=== PATIENT | female | born 1960 | race African-American/Black ===

== ENCOUNTER 2020-03-01 10:00 | Outpatient (RCR) | payer MEDICAID, OTHER, SELFPAY ==
[2020-01-18] VITALS (7 sets, daily range): BP systolic 111–140; BP diastolic 75–85; PULSE 61–87; RESP 13–16; TEMP 36.6–37.4; O2SAT 98–100
[2020-01-18] MEDS: ACETAMINOPHEN 500 MG TABLET PO (08:03)
[2020-01-18 08:28] LABS: Hematocrit 18.6 % (37.0-47.0); Hemoglobin 6.1 g/dL (12.0-15.0)
[2020-02-29 11:35] VITALS: BP 110/73; PULSE 62; RESP 14; TEMP 37.6; O2SAT 97
[2020-02-29 11:41] LABS: Hemoglobin 6.8 g/dL (12.0-15.0)
--- NOTE | 2020-02-29 13:18 | PC.NURSE ---
LM AT DR. 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 DID THEY WANT TO ORDER ADDITIONAL BLOOD TO BE GIVEN OVER THE 1 UNIT PRBC'S ORDERED? RETURN CALL RECEIVED FROM OFFICE. YES, PER DR. ANDINO, INCREASE TRANSFUSION UNITS TO 2 FROM 1. NOTIFIED BLOOD BANK OF NEED TO TRANSFUSE 2 UNITS OF BLOOD INSTEAD OF 1 PER ORDER. PT. UPDATED ON NEW ORDER.
--- NOTE | 2020-02-29 13:50 | PC.NURSE ---
CALL RECEIVED FROM BLOOD BANK. UNABLE TO ISSUE ANY BLOOD UNITS AT THIS TIME; EXTENDED CROSSMATCH CAME BACK POSITIVE (+), BUT ANTIBODY SCREEN IS NEGATIVE (-). 4 ADDITIONAL PINK TOP VIALS OF BLOOD REQUESTED TO BE SENT TO BLOOD BANK FOR SEND OUT FOR ADDITIONAL SCREENING. LAB UNABLE TO GIVE ESTIMATED LENGTH OF TIME THIS PROCESS WILL TAKE, BUT RECOMMENDS PT. GO HOME FOR NIGHT AND RETURN TOMORROW FOR TRANSFUSION. PT. NOTIFIED OF SUCH. AGREES TO RETURN TO [facility] AT 10AM 03/01/2020 FOR BLOOD TRANSFUSION OF [address] ANDINO'S OFFICE AND CONFIRM THEIR APPROVAL.
--- NOTE | 2020-02-29 14:30 | PC.NURSE ---
OK RECEIVED FOR DATE AND TIME CHANGE OF 2 UNITS PRBC TRANSFUSION TO 03/01/[address] ANDINO. OFFICE WILL SEND OVER NEWLY UPDATED ORDER TO REFLECT TRANSFUSION CHANGE TO 2 UNITS PRBC'S FROM 1 UNIT PRBC'S FOR HH OF .
[2020-02-29] MEDS: HEPARIN SOD FLUSH 500 UNITS/5 ML SYRINGE (14:55)
--- NOTE | 2020-02-29 14:55 | PC.NURSE ---
4 PINK TOP VIALS OF BLOOD SENT TO BLOOD BANK REQUESTED FOR ADDITIONAL SCREENING. PORT A CATH R. UPPER CHEST DEACCESSED PER PROTOCOL AFTER FLUSHED W/ HEP LOCK FLUSH. TOLERATED WELL. PT. DID NOT TAKE PRE TRANSFUSION MEDS OF TYLENOL OR BENADRYL TODAY.
--- NOTE | 2020-02-29 15:00 | PC.NURSE ---
SENT HOME, OUT AMBULATORY TO DAUGHTER'S WAITING CAR WITH ALL PERSONAL BELONGINGS. WILL RETURN TOMORROW 03/01/2020 AT 1000 FOR 2UNITS PRBC'S TRANSFUSION ORDERED ONCE ADDITIONAL SCREENING IS COMPLETED.
[2020-03-01] VITALS (9 sets, daily range): BP systolic 100–122; BP diastolic 68–77; PULSE 56–68; RESP 14–20; TEMP 36.6–37.7; O2SAT 99–100
[2020-03-01] MEDS: ACETAMINOPHEN 500 MG TABLET PO (11:41)
== END 2020-04-17 23:59 | disposition home or self-care (01) ==
LOC: ANHCPCTRAN 10:00
PROVIDERS: Visit Provider Internal Medicine Medical Oncology
DX: D50.0 Iron deficiency anemia secondary to blood loss (chronic) (principal); C18.6 Malignant neoplasm of descending colon
CPT/HCPCS: 36415; 36430; 81479; 85014; 85018; 86850; 86860; 86870; 86880; 86900; 86901; 86922; 86970; 86971; 86972; A9270; P9016

== ENCOUNTER 2020-03-20 07:33 | Outpatient (CLI) | payer OTHER, SELFPAY ==
--- NOTE | 2020-03-20 | ECHO_ITS ---
Patient Info Name: Dina Smith Age: 59 years : 1960 Gender: Female Ht: 67 in Wt: 171 lbs BSA: 1.93 m2 HR: 63 bpm BP: 99 / 86 mmHg Heart Rhythm: Sinus Rhythm Technical Quality: Good Exam Date: 03/20/2020 7:59 AM Exam Location: [facility] Patient Status: Outpatient Admit Date: 03/20/2020 Staff Ordering Physician: Theron, Jah Herring MD Ornamental Machine Operator: Viktoriya Mcmillan RDCS Attending Provider: Ranulfo, Jah Herring MD Referring Physician: Theron BIANCHI; Exam Type: CA echo doppler color flow Study Info Indications I10 - Essential (primary) hypertension I42.9 - Cardiomyopathy, unspecified Complete two-dimensional, color flow and Doppler transthoracic echocardiogram is performed. Summary 1. Left ventricular chamber dimension is mildly enlarged. 2. Left ventricular systolic function is normal, estimated at 55-60%. 3. There is mildly increased left ventricular wall thickness. 4. Left ventricular septal wall motion is normal. 5. The left ventricular diastolic function is grade I diastolic dysfunction. 6. Global longitudinal strain is normal at 17 %. 7. There is moderate aortic valve regurgitation. 8. There is mild mitral valve regurgitation. 9. There is mild tricuspid valve regurgitation. 10. There is mild pulmonic regurgitation. Left Ventricle Left ventricular chamber dimension is mildly enlarged. Left ventricular systolic function is normal, estimated at 55-60%. There is mildly increased left ventricular wall thickness. Left ventricular septal wall motion is normal. The left ventricular diastolic function is grade I diastolic dysfunction. Global longitudinal strain is normal at 17 %. Right Ventricle Right ventricular chamber dimension is normal. Right ventricular systolic function is normal. Left Atria Left atrial chamber dimension is mildly enlarged. Right Atria Right atrial chamber dimension is normal. Atrial Septum Intact interatrial septum visualized by color flow imaging. Aortic Valve The aortic valve is trileaflet. There is no aortic valve sclerosis. There is no aortic valve stenosis. There is moderate aortic valve regurgitation. Pulmonic Valve The pulmonic valve is normal. There is no pulmonic valve stenosis. There is mild pulmonic regurgitation. Mitral Valve The mitral valve has normal leaflets. There is no mitral valve stenosis. There is mild mitral valve regurgitation. Tricuspid Valve The tricuspid valve leaflets are normal. There is no significant tricuspid valve stenosis. There is mild tricuspid valve regurgitation. No pulmonary hypertension, estimated pulmonary arterial systolic pressure is 31 mmHg. Pericardium/Pleural The pericardium appears normal. There is no pericardial effusion. Inferior Vena Cava Normal inferior vena cava with >50% collapse upon inspiration consistent with normal right atrial pressure, 10 mmHg. Aorta The aortic root size at the sinus of Valsalva is normal. The prox ascending aorta size is normal. Left Ventricular Outflow Tract Name Value Normal LVOT 2D LVOT Diameter 2.0 cm LVOT Doppler LVOT Pe
[2020-03-20 10:41] LABS: Alanine Aminotransferase 9 U/L (4-35); Albumin Level 3.8 g/dL (3.5-5.1); Alkaline Phosphatase 65 U/L (38-126); Aspartate Amino Transferase 23 U/L (14-36); Bilirubin,Total 0.2 mg/dL (0.2-1.3); Blood Urea Nitrogen 31 mg/dL (7-17); Calcium 9.1 mg/dL (8.4-10.2); Carbon Dioxide 17 mmol/L (22-30); Chloride 112 mmol/L (98-107); Estimated Glomerular Filt Rate 26; Glucose 92 mg/dL (65-105); Potassium 4.3 mmol/L (3.4-5.0); Sodium 138 mmol/L (137-145)
== END 2020-03-20 07:34 | disposition home or self-care (01) ==
PROVIDERS: Visit Provider Internal Medicine Cardiovascular Disease
DX: I42.9 Cardiomyopathy, unspecified (principal); I10 Essential (primary) hypertension; I08.3 Combined rheumatic disorders of mitral, aortic and tricuspid valves
CPT/HCPCS: 36415; 80053; 93306

== ENCOUNTER 2020-03-23 12:57 | Outpatient (CLI) | payer OTHER, SELFPAY ==
[2020-03-23 13:58] LABS: Blood Urea Nitrogen 27 mg/dL (7-17); Calcium 8.8 mg/dL (8.4-10.2); Carbon Dioxide 17 mmol/L (22-30); Chloride 113 mmol/L (98-107); Estimated Glomerular Filt Rate 25; Glucose 93 mg/dL (65-105); Potassium 4.5 mmol/L (3.4-5.0); Sodium 138 mmol/L (137-145)
== END 2020-03-23 12:58 | disposition home or self-care (01) ==
DX: I10 Essential (primary) hypertension (principal)
CPT/HCPCS: 36415; 80048

== ENCOUNTER 2020-05-18 09:29 | Outpatient (RCR) | payer OTHER, SELFPAY ==
[2020-04-06] VITALS (9 sets, daily range): BP systolic 104–131; BP diastolic 71–89; PULSE 67–79; RESP 20–24; TEMP 37.3–37.7; O2SAT 99–100
[2020-04-06 08:17] LABS: Mean Corpuscular HGB Conc 31.6 g/dl (32-36); Mean Corpuscular Hemoglobin 28.6 pg (26-34); Mean Corpuscular Volume 90.3 fl (80-100); Mean Platelet Volume 8.6 fl (7.4-10.4); Platelet Count Result 190 k/mm3 (150-375); Red Blood Count 2.17 M/mm3 (4.2-5.4); White Blood Count 4.3 K/mm3 (4.5-10.0)
[2020-04-06] MEDS: ACETAMINOPHEN 500 MG TABLET PO (08:17)
[2020-04-06 08:21] LABS: Hematocrit 19.6 % (37.0-47.0); Hemoglobin 6.2 g/dL (12.0-15.0)
[2020-04-06] MEDS: SODIUM CHLORIDE 0.9% IV 250 ML 30 ML IV CONT (09:45)
[2020-05-18 09:55] LABS: Eosinophils Absolute Auto 0.1 K/mm3 (0-0.3); Hematocrit 21.8 % (37.0-47.0); Hemoglobin 7.2 g/dL (12.0-15.0); Immature Granulocyte Absolute 0.02 K/mm3 (0.00-0.031); Immature Granulocyte Percent A 0.4 % (0-0.5); Lymphocytes Absolute Auto 0.67 K/mm3 (0.9-3.2); Lymphocytes Percent Auto 14.8 % (18.3-44.2); Mean Corpuscular Hemoglobin 29.9 pg (26-34); Mean Corpuscular Volume 90.5 fl (80-100); Mean Platelet Volume 8.9 fl (7.4-10.4); Monocytes Absolute Auto 0.4 K/mm3 (0.1-0.6); Monocytes Percent Auto 9.1 % (2.6-8.5); Neutrophils Absolute Auto 3.3 K/mm3 (1.3-6.7); Neutrophils Percent Auto 73.7 % (45.5-73.1); Platelet Count Result 248 k/mm3 (150-375); Red Blood Count 2.41 M/mm3 (4.2-5.4); Red Cell Distribution Width 16.6 % (11.5-14.5); White Blood Count 4.5 K/mm3 (4.5-10.0)
[2020-05-18] MEDS: diphenhydrAMINE HCl CAP 25 MG CAPSULE PO (11:49)
[2020-05-18] MEDS: ACETAMINOPHEN 500 MG TABLET PO (11:54)
[2020-05-18 13:15] VITALS: BP 100/64; PULSE 64; RESP 14; TEMP 37; O2SAT 99
[2020-05-18 13:30] VITALS: BP 92/62; PULSE 64; RESP 15; TEMP 37.5; O2SAT 100
[2020-05-18 14:30] VITALS: BP 92/63; PULSE 67; RESP 14; TEMP 37.2; O2SAT 97
[2020-05-18 15:19] VITALS: BP 95/62; PULSE 64; RESP 14; TEMP 37.1; O2SAT 100
[2020-05-18] MEDS: HEPARIN SOD FLUSH 500 UNITS/5 ML SYRINGE (15:22)
== END 2020-07-04 23:59 | disposition home or self-care (01) ==
LOC: ANHCPCTRAN 09:29
PROVIDERS: Visit Provider Internal Medicine Medical Oncology
DX: D50.0 Iron deficiency anemia secondary to blood loss (chronic) (principal); C18.6 Malignant neoplasm of descending colon
CPT/HCPCS: 36415; 36430; 85025; 85027; 86850; 86900; 86901; 86922; A9270; J7050; P9016

== ENCOUNTER 2020-08-27 08:59 | Inpatient (IN) | payer MEDICARE, MEDICAID, SELFPAY ==
[2020-08-27] VITALS (20 sets, daily range): BP systolic 141–184; BP diastolic 77–96; PULSE 49–67; RESP 16; TEMP 36.3–36.4; O2SAT 97–100; BMI 23.5
--- NOTE | ~2020-08-27 | CT_ITS ---
EXAMINATION: CT guide nephro tube pl BI DATE: 08/29/2020 15:08 INDICATION: Bilateral hydronephrosis. TECHNIQUE: The procedure including the risks, benefits, and alternatives was discussed with the patie nt. Risks discussed included bleeding and infection. The patient understood the risks and benefits an d agreed to proceed. The patient was confirmed to be receiving appropriate antibiotic coverage. The skin overlying the kidneys was prepped and draped in usual sterile fashion. Anesthetic was administe red with 1% lidocaine subcutaneously. An 18 gauge trochar needle was inserted into a calyx of the rig ht kidney under CT guidance. The needle was exchanged over a wire for 6 Bolivian, 8 Bolivian, and 9 Frenc h dilators and then for an 8.5 Bolivian pigtail catheter under CT guidance. The catheter was stitched t o the skin. An 18 gauge trochar needle was inserted into a calyx of the left kidney under CT guidance. The needle was exchanged over a wire for 6 Bolivian, 8 Bolivian, and 9 Bolivian dilators and then for an 8.5 Bolivian p igtail catheter under CT guidance. The catheter was stitched to the skin. Dressings were applied. The mA was adjusted according to patient size. Iterative reconstruction technique was employed. The dose -length product was 266.58 mGy-cm. There were no immediate complications. FINDINGS: CT images demonstrate the right nephrostomy tube in the right renal pelvis. CT images demon strate the left nephrostomy tube in the left renal pelvis. IMPRESSION: 1. Successful CT-guided right-sided nephrostomy tube placement]. 2. Successful CT-guided left-sided nephrostomy tube placement. Reviewed, dictated and finalized at location A.
--- NOTE | ~2020-08-27 | CT_ITS ---
EXAMINATION: CT abdomen pelvis wo con DATE: 08/28/2020 08:30 INDICATION: Generalized abdominal pain TECHNIQUE: Computed tomography (CT) of the abdomen and pelvis was performed without intravenous contr ast. Automated exposure control and iterative reconstruction technique were employed. Exam dose: 321 .83 mGy-cm total exam DLP. COMPARISON: 09/12/2019 CT abdomen pelvis FINDINGS: Prominent discoid atelectasis and/or scarring at the basilar lower lobes. Cardiomegaly. Trace pericardial fluid. No pleural effusion. Small sliding hiatal hernia. There is an approximately 4 cm hypoattenuating lesion of the lateral segment of the left hepatic lobe , very suspicious for metastatic disease. No other hepatic mass lesion is readily evident on this tate ited noncontrast examination. Normal splenic size. No bile duct or pancreatic duct dilatation. The gallbladder is present. No pancreatic mass lesion or calcification is detected. Normal morphology of the adrenal glands. There is increased bilateral hydroureteronephrosis since 09/12/2019, with distal ureteral obstruction bilaterally, as suggested on 09/12/2019. Differential diagnosis includes distal ureteral obstruction secondary to prior surgery or radiotherapy for metastatic disease. 2.5 cm left renal cyst is again noted. The urinary bladder appears unremarkable. Normal caliber of the abdominal aorta. No intraperitoneal or retroperitoneal or pelvic mass lesion or adenopathy or ascites is detected. Status post partial colectomy. There is a prominent amount of fecal material within the colon. No bow el obstruction or intraperitoneal free air is evident. No suspicious osteolytic or osteoblastic lesions are noted. IMPRESSION: 4 cm probable lateral segment left hepatic metastasis Increased bilateral hydroureteronephrosis since 09/12/2019, suggesting either metastatic obstruction versus postsurgical or post-radiation strictures of the distal ureters Status post partial colectomy Reviewed, dictated and finalized at Location A. Reviewed, dictated and finalized at location A. IMPRESSION: 4 cm probable lateral segment left hepatic metastasis Increased bilateral hydroureteronephrosis since 09/12/2019, suggesting either m etastatic obstruction versus postsurgical or post-radiation strictures of the d istal ureters Status post partial colectomy
--- NOTE | ~2020-08-27 | XR_ITS ---
EXAMINATION: XR retrograde pyelogram BI DATE: 08/28/2020 15:34 INDICATION: Bilateral hydronephrosis. TECHNIQUE: 89 intraoperative fluoroscopic images of the abdomen and pelvis were obtained. I was not p resent. Fluoroscopy exposure time was 236 seconds. COMPARISON: CT 08/28/2020 FINDINGS: The bilateral retrograde pyelograms demonstrate structures of the distal ureters. Contrast did not pass the stricture on the right. There is hydroureter proximal to the stricture on the left. IMPRESSION: 1. Strictures of the distal ureters. Reviewed, dictated and finalized at location A.
--- NOTE | ~2020-08-27 | CT_ITS ---
EXAMINATION:CT chest high resolution wo co DATE: 08/28/2020 13:18 INDICATION: Colon cancer. TECHNIQUE: Computed tomography (CT) of the chest was performed without intravenous contrast. Automate d exposure control and iterative reconstruction technique were employed. The dose-length product (DLP ) was 173.74 mGy-cm. COMPARISON: Chest CT 08/21/2019, CT abdomen and pelvis 09/12/2019 FINDINGS: There is mild emphysema. There is mild atelectasis bilaterally. There is mild scarring at l eft lung apex. There is a trace right pleural effusion. Cardiomegaly is noted. No pericardial effusio n. There is a right internal jugular port with tip at superior cavoatrial junction. There is an incre ased number of normal-sized axillary lymph nodes bilaterally, likely reactive. There is a chronic 3.9 cm mass in left hepatic lobe that was hyperenhancing on the prior CT, consistent with a hemangioma. There is severe bilateral hydronephrosis. There is severe thoracic spondylosis. There is mild chronic anterior wedging of multiple thoracic vertebral bodies. IMPRESSION: 1. Mild emphysema. 2. Cardiomegaly. 3. Severe bilateral hydronephrosis, worsened from 09/12/19. Reviewed, dictated and finalized at location A.
--- NOTE | ~2020-08-27 | US_ITS ---
EXAMINATION: US renal BI DATE: 08/28/2020 08:55 INDICATION: Acute renal failure TECHNIQUE: Multiple ultrasound grayscale images of the kidneys were obtained. COMPARISON: CT dated 08/28/2020 FINDINGS: The right kidney measures 10.5 x 4.8 x 5.6 cm. The left kidney measures 12.7 x 7.9 x 7.9 cm. The kidn eys demonstrate normal echogenicity. Severe bilateral hydronephrosis and at least proximal hydrourete r. No stones identified. The bladder is normal. A left ureteral jet is seen in the bladder on color Doppler imaging. No right-sided ureteral jet observed by the cement finisher helper during the course of the pedro luation. IMPRESSION: 1. Severe bilateral hydronephrosis. On review of immediately prior CT of the abdomen and pelvis ther e is no urolithiasis. There is however a large mass along the right anterior margin of the distal sig moid colon which appears contiguous with the seminal vesicles and distal ureters suspicious for recur rent malignancy in this patient with reported history of colorectal carcinoma. The bilateral ureters appear dilated with hydroureter proximally but with increased intraluminal density distally raising c oncern for malignant invasion. Could consider cystoscopy and ureteroscopy for further evaluation. Reviewed, dictated and finalized at location B. IMPRESSION: 1. Severe bilateral hydronephrosis. On review of immediately prior CT of the a bdomen and pelvis there is no urolithiasis. There is however a large mass along the right anterior margin of the distal sigmoid colon which appears contiguous with the seminal vesicles and distal ureters suspicious for recurrent malignan cy in this patient with reported history of colorectal carcinoma. The bilateral ureters appear dilated with hydroureter proximally but with increased intralum inal density distally raising concern for malignant invasion. Could consider cy stoscopy and ureteroscopy for further evaluation.
[2020-08-27 09:54] LABS: Add Urine Microscopic? YES; Appearance Urine Cloudy (Clear); Bacteria Urine Trace /hpf; Bilirubin Urine Negative (Negative); Blood Urine 2+ (Negative); Color Urine Yellow (Yellow); Glucose Urine UA Negative (Negative); Ketones Urine Negative (Negative); Leukocyte Esterase Ur 3+ LEU/UL (Negative); Nitrate Urine Negative (Negative); Protein Urine 1+ mg/dL (Negative); RBC Urine 21-50 /hpf (0-2); Specific Grav Ur 1.008 (1.001-1.035); Squamous Epithelial Cell Urine Few /hpf (Few); Urobilinogen Urine Negative mg/dL (<2.0); WBC Urine 51-75 /hpf
[2020-08-27 10:00] LABS: Basophils Percent Auto 0.3 % (0.2-1.2); Eosinophils Absolute Auto 0.1 K/mm3 (0-0.3); Eosinophils Percent Auto 1.4 % (0-4.4); Hematocrit 26.1 % (37.0-47.0); Hemoglobin 8.7 g/dL (12.0-15.0); Immature Granulocyte Absolute 0.03 K/mm3 (0.00-0.031); Immature Granulocyte Percent A 0.4 % (0-0.5); Lymphocytes Absolute Auto 0.91 K/mm3 (0.9-3.2); Lymphocytes Percent Auto 12.5 % (18.3-44.2); Mean Corpuscular HGB Conc 33.3 g/dl (32-36); Mean Corpuscular Hemoglobin 29.6 pg (26-34); Mean Corpuscular Volume 88.8 fl (80-100); Mean Platelet Volume 9.3 fl (7.4-10.4); Monocytes Absolute Auto 0.6 K/mm3 (0.1-0.6); Monocytes Percent Auto 8.1 % (2.6-8.5); Neutrophils Absolute Auto 5.7 K/mm3 (1.3-6.7); Neutrophils Percent Auto 77.3 % (45.5-73.1); Platelet Count Result 246 k/mm3 (150-375); Red Blood Count 2.94 M/mm3 (4.2-5.4); Red Cell Distribution Width 15.7 % (11.5-14.5); White Blood Count 7.3 K/mm3 (4.5-10.0)
[2020-08-27 10:10] LABS: INR 1.1; Prothrombin Time 14.1 Seconds (11.1-14.7)
[2020-08-27 10:12] LABS: Alanine Aminotransferase 6 U/L (4-35); Albumin Level 3.6 g/dL (3.5-5.1); Alkaline Phosphatase 56 U/L (38-126); Anion Gap 8 mmol/L (8-16); Aspartate Amino Transferase 21 U/L (14-36); Bilirubin,Total 0.4 mg/dL (0.2-1.3); Blood Urea Nitrogen 36 mg/dL (7-17); Carbon Dioxide 19 mmol/L (22-30); Chloride 115 mmol/L (98-107); Estimated CRCL calculation 14 ml/min; Estimated Glomerular Filt Rate 15; Glucose 108 mg/dL (65-105); Potassium 3.6 mmol/L (3.4-5.0); Sodium 142 mmol/L (137-145)
[2020-08-27] MEDS: fentaNYL CITRATE INJ (*CRX) 100 MCG/2 ML VIAL 25 MCG IV PUSH (10:59)
--- NOTE | 2020-08-27 11:21 | ED.ABDPAIN ---
HPI - Abdominal Pain General Chief Complaint: Abdominal Pain Stated Complaint: abd cramps/pain Time Seen by Provider: 08/27/20 09:15 Source: patient Mode of arrival: ambulatory Limitations: no limitations History of Present Illness HPI narrative: Patient presents with chief complaint of lower abdominal pain that is progressively worsening over the past 2 days. Patient states that she has a history of stage IV colon cancer which was active in 2016 and 2018. She reports she has had colon resection, chemo and colostomy which was then reversed. Patient states that her GI specialist is Dr. Smith at [facility]. Patient states that she has been undergoing a lot of testing the past 2 to 3 weeks regarding her colon cancer and abdominal symptoms however her discomfort at this time is not similar to her normal symptoms. She denies fever, chills states that her nausea and vomiting are at baseline she reports the discomfort is to the lower left region of her abdomen as well as the center of her abdomen. She denies loss of bowel or bladder function or saddle paresthesias. She denies any chest pain, shortness of breath, or bloody stools, urinary symptoms. Patient reports she has chronic anemia and her last hemoglobin checked on wound was approximately a 8.9. Related Data Allergies Allergy/AdvReac Type Severity Reaction Status Date / Time codeine Allergy Mild Unknown Verified 08/27/20 10:06 penicillin G Allergy Mild Unknown Verified 08/27/20 10:06 Sulfa (Sulfonamide Allergy Mild Unknown Verified 08/27/20 10:06 Antibiotics) tramadol AdvReac Unknown Nausea and Verified 08/27/20 10:06 Vomiting Review of Systems Review of Systems: Narrative: CONSTITUTIONAL: Denies fever, chills, or sweats. EYES: Denies visual changes, redness, or discharge. ENT: Denies rhinorrhea, congestion, sore throat, or otalgia. CARDIOVASCULAR: Denies chest pain, palpitations, or edema. RESPIRATORY: Denies cough or dyspnea. GASTROINTESTINAL: Reports abdominal pain, baseline nausea, vomiting, denies bloody diarrhea. GENITOURINARY: Denies dysuria or hematuria. SKIN: Denies rash or itching. MUSCULOSKELETAL: Denies back pain, myalgia, or joint pain NEUROLOGIC: Denies headache, numbness, dizziness, or weakness. PSYCHIATRIC: Denies anxiety or depression. [facility] Past Medical History Medical History (Updated 08/27/20 @ 11:33 by Magaile Jesus PA-C) Anemia Colon cancer Hypertension Surgical History Surgical History (Updated 08/27/20 @ 11:29 by Magalie Jesus PA-C) Colostomy status History of colon resection Social History Social History Gender identity (if verbalized by the patient): Female Exam Narrative: Exam Narrative: GENERAL: Non toxic in appearance, smiling and talking without signs of distress. HEAD: Normocephalic, atraumatic. EYES: PERRLA and EOMI. ENT: Nares clear, no rhinorrhea or epistaxis. Mucous membranes moist. Oropharynx without tonsillar hypertrophy exudate or other lesions. Bilateral TMs pearly marina nonbulging NECK: Supple. No adenopathy or masses. No vertebral tenderness or loss of ROM. CHEST: Port to right chest wall. Clear to auscultation. No respiratory distress. No wheezes rales or rhonchi HEART: Regular rate and rhythm. ABDOMEN: Soft, tender in lower center and left abdomen. nondistended, normal active bowel sounds. No bruises noted. Healed surgical scars noted. EXTREMITIES: No acute changes in ROM. No edema. SKIN: Warm, dry, no rash. NEURO: No focal deficits. Alert and oriented x3. PSYCH: Normal mood and affect. Course Vital Signs Vital signs: Vital Signs Temperature 97.4 F L 08/27/20 09:15 Pulse Rate 60 08/27/20 09:15 Respiratory Rate 16 08/27/20 09:15 Blood Pressure 161/91 H 08/27/20 09:15 Pulse Oximetry 100 08/27/20 09:15 Temperature 97.4 F L 08/27/20 09:15 Pulse Rate 49 L 08/27/20 11:16 Respiratory Rate 16 08/27/20 09:15 Blood Pressure 156/81 H 08/27/20 11:16 Pu
[2020-08-27] MEDS: SODIUM CHLORIDE 0.9% IV 1,000 ML 999 ML IV CONT (11:55)
--- NOTE | 2020-08-27 12:50 | PC.NURSE ---
This patient, Dina Smith, was admitted to [facility] Surg Room 313-01. Patient/family oriented to hospital policies and general routines including ID bracelet, bed and alarms, visiting hours, pain management, procedures, bathroom and other care routines, personal items, smoking policy, room service/diet, and visiting hours.Report received from [facility] Patient/Family are encouraged to report perceived risks to care and to ask questions if they do not understand what they are told or what they should do.
[2020-08-27] MEDS: fentaNYL CITRATE INJ (*CRX) 100 MCG/2 ML VIAL 50 MCG IV PUSH ×2 (14:51→19:54)
--- NOTE | 2020-08-27 19:46 | PM.IMHP ---
H&P: HPI History of Present Illness Date/Time: 08/27/20 19:46 Chief complaint: uti with acute renal injury Narrative: Dina Smith is a 59 year old female Who has a history of stage IV colon cancer. She has had a history of a colectomy with colostomy bag with the reversal a couple years after that. The patient has had chemotherapy and radiation. She no longer has chemo radiation. The patient also has a history of having acute kidney disease with a creatinine around 1.8. The patient came in today with some lower abdominal pain that has been getting progressively worse over the last 2 days. She her oncologist is Dr. saha at [facility]. Patient has been undergoing several testing over the last 2-3 weeks regarding her colon cancer and abdominal symptoms. Patient has had chronic anemia. She has had blood transfusions in the past. She denies any loss of bowel or bladder. No paresthesias. No chest pain no fever no chills no cough no shortness of breath no bloody stools. She stated her last hemoglobin was around 8.9. The ER provider did talk to her cnc service engineer who stated that the creatinine in May of this year was 1.8. Patient was given a L fluid in the emergency room. Her creatinine today was 3.8. Patient was also found to have a UTI and was started on Rocephin. Patient was given fentanyl and IV fluids in the emergency room. Patient is being admitted for observation for urinary tract infection. Date of service is 08/27/2020. Review of Systems Review of Systems: All systems reviewed & are unremarkable except as noted in HPI and below Constitutional: Constitutional: Reports as per HPI and Reports no additional constitutional complaints Eyes: Eyes: Reports as per HPI and Reports no additional eye complaints ENT: Reports system reviewed and no additional complaints, except as documented and Reports Normal hearing present Cardiovascular: Cardiovascular: Reports no additional cardiovascular complaints Respiratory: Respiratory: Reports no additional respiratory complaints and Reports no additional respiratory complaints Gastrointestinal: Gastrointestinal: Reports as per HPI and Reports no additional gastrointestinal complaints Musculoskeletal: Musculoskeletal: Reports no additional musculoskeletal complaints Integumentary/Breasts: Skin/Breast: Reports system reviewed and no additional complaints, except as docu and Reports as per HPI Neurologic: Reports system reviewed and no additional complaints, except as documented, Reports as per HPI and Reports Normal hearing present Psychiatric: Psychiatric: Reports no additional psychiatric complaints and Reports as per HPI Endocrine: Endocrine: Reports no additional endocrine complaints Hematologic/Lymphatic: Hematologic/Lymphatic: Reports no additional hematologic/lymphatic complaints Allergic/Immunologic: Allergic/Immunologic: Reports no additional allergic/immunologic complaints [facility] Past Medical History Medical History (Updated 08/27/20 @ 20:04 by Hilda Antonio NP) Anemia Anxiety Colon cancer Congestive heart failure Hypertension Normal colonoscopy Port-A-Cath in place Surgical History Surgical History (Updated 08/27/20 @ 19:54 by Hilda Antonio NP) Colostomy status Later taken down. H/O endoscopy H/O lymph node biopsy H/O: hysterectomy History of bone marrow biopsy History of colon resection Family History Family History Grandparent Cerebrovascular accident Pancreas cancer Lung cancer Mother Colon cancer Social History Social History (Updated 08/27/20 @ 19:59 by Hilda Antonio NP) Social History: the patient is . She has 5 children. The patient is now on disability. The patient is a full code. She does not have a durable power commercial litigation attorney for healthcare. She is a former smoker. The patient smoked marijuana in her younger days. The patient stated that she was g
[2020-08-27] MEDS: SODIUM CHLORIDE 0.9% IV 1,000 ML 75 ML IV CONT (21:14)
[2020-08-28] VITALS (11 sets, daily range): BP systolic 144–171; BP diastolic 60–115; PULSE 52–67; RESP 12–24; TEMP 36.2–36.9; O2SAT 96–100; BMI 23.5
[2020-08-28 01:48] LABS: Urea Random Urine 324 MG/DL
[2020-08-28 01:49] LABS: Urine Cotinine NEGATIVE
[2020-08-28 01:52] LABS: Sodium Urine Random 36 meq/L
[2020-08-28 02:22] LABS: Total Protein Urine Random 43 mg/dL
[2020-08-28] MEDS: fentaNYL CITRATE INJ (*CRX) 100 MCG/2 ML VIAL 50 MCG IV PUSH ×3 (05:24→21:03)
[2020-08-28 06:24] LABS: Basophils Percent Auto 0.3 % (0.2-1.2); Eosinophils Absolute Auto 0.1 K/mm3 (0-0.3); Eosinophils Percent Auto 1.7 % (0-4.4); Hematocrit 22.5 % (37.0-47.0); Hemoglobin 7.4 g/dL (12.0-15.0); Immature Granulocyte Absolute 0.02 K/mm3 (0.00-0.031); Immature Granulocyte Percent A 0.3 % (0-0.5); Immature Reticulocyte Fraction 18.6 % (3.0-15.9); Lymphocytes Absolute Auto 0.87 K/mm3 (0.9-3.2); Lymphocytes Percent Auto 14.8 % (18.3-44.2); Mean Corpuscular HGB Conc 32.9 g/dl (32-36); Mean Corpuscular Hemoglobin 29.8 pg (26-34); Mean Corpuscular Volume 90.7 fl (80-100); Mean Platelet Volume 9.8 fl (7.4-10.4); Monocytes Absolute Auto 0.6 K/mm3 (0.1-0.6); Monocytes Percent Auto 9.6 % (2.6-8.5); Neutrophils Absolute Auto 4.3 K/mm3 (1.3-6.7); Neutrophils Percent Auto 73.3 % (45.5-73.1); Platelet Count Result 210 k/mm3 (150-375); Red Blood Count 2.48 M/mm3 (4.2-5.4); Red Cell Distribution Width 15.6 % (11.5-14.5); Reticulocyte Hemoglobin Conten 34.5 pg (28.2-35.7); Reticulocyte Percent 0.81 % (0.7-4.3); Reticulocytes Absolute 0.02 B/L (32.2-175.7); White Blood Count 5.9 K/mm3 (4.5-10.0)
[2020-08-28 06:37] LABS: Anion Gap 10 mmol/L (8-16); Blood Urea Nitrogen 36 mg/dL (7-17); Calcium 8.3 mg/dL (8.4-10.2); Carbon Dioxide 16 mmol/L (22-30); Chloride 117 mmol/L (98-107); Estimated CRCL calculation 14 ml/min; Estimated Glomerular Filt Rate 15; Glucose 102 mg/dL (65-105); Lactate Dehydrogenase 437 U/L (313-618); Magnesium 1.7 mg/dL (1.6-2.3); Potassium 3.5 mmol/L (3.4-5.0); Sodium 143 mmol/L (137-145)
[2020-08-28 07:03] LABS: Iron 42 ug/dL (37-170)
[2020-08-28 07:12] LABS: Percent Iron Saturation 24 % (20-50)
[2020-08-28 07:42] LABS: Folic Acid 8.8 ng/mL (2.76->20)
[2020-08-28 09:19] LABS: Free T4 Free Thyroxine Reflex 0.65 ng/dL (0.78-2.19)
--- NOTE | 2020-08-28 10:41 | WPDONCCN ---
Assessment and Plan Assessment and plan (1) Colon cancer: Code(s): C18.9 - Malignant neoplasm of colon, unspecified Status: Acute Assessment and Plan: Likely progression. Obtain CEA level. Staging Chest CT as she has JOSE (2) Acute renal injury: Code(s): N17.9 - Acute kidney failure, unspecified Status: Acute Assessment and Plan: JOSE on CKD. Secondary to obstructive uropathy. Urology and Nephrology evaluation (3) Anemia: Code(s): D64.9 - Anemia, unspecified Status: Acute Assessment and Plan: She has had extensive work up in the past. Will recommend obtaining Iron studies with Serum Iron, Total iron binding capacity, Serum Ferritin, Transferrin Saturation, Serum B12 and Serum Folate.Also will recommend obtaining FOBT (4) UTI (urinary tract infection): Qualifiers: Hematuria presence: with hematuria Urinary tract infection type: acute cystitis Qualified Code(s): N30.01 - Acute cystitis with hematuria Code(s): N39.0 - Urinary tract infection, site not specified Status: Acute Assessment and Plan: On Rocephin. Continue abx as per primary team HPI Data of Consult Date/Time: 08/28/20 10:41 Requesting Physician: Kimmy Enriquez MD Primary Care Provider: Dilshad DenneyMD Consult Narrative Narrative: Dina Smith is a 59 year old female who initially presented with advanced colorectal cancer requiring initially a diverting colostomy, then partial colectomy with takedown of her colostomy followed by adjuvant chemotherapy,, Stage IIIc, with FOLFOX ( Oxaliplatin discontinued after 4 cycles), had progression and underwent debulking surgery and IP chemotherapy in April 2018, developed CHF in Oct 2018. She was on surveillance since then with Dr. Pickering at [facility]. Last seen by him in Aug 2020. She also has baseline CKD with Creatinine of 2.3 in Jul 2020. Baseline around 1.8. Now she presents to [facility] with abdominal pain for 2 days and was noted to have local progression on CT abdomen and renal sonogram with B/L hydronephrosis and mass near the distal sigmoid colon. Consulted for recurrent colon cancer. Review of Systems Review of Systems: All systems reviewed & are unremarkable except as noted in HPI and below PMFSH Past Medical History Medical History Anemia Anxiety Colon cancer Congestive heart failure EF 55-60% echo in 03/2020 Hypertension Moderate aortic regurgitation Normal colonoscopy Port-A-Cath in place Surgical History Surgical History Colostomy status Later taken down. H/O endoscopy H/O lymph node biopsy H/O: hysterectomy History of bone marrow biopsy History of colon resection Family History Family History Grandparent Cerebrovascular accident Pancreas cancer Lung cancer Mother Colon cancer Social History Social History Social History: the patient is . She has 5 children. The patient is now on disability. The patient is a full code. She does not have a durable power united states attorney for healthcare. She is a former smoker. The patient smoked marijuana in her younger days. The patient stated that she was given medical marijuana at 1 time but decided she did not like it. So she stop using marijuana altogether. No alcohol or illicit drug use. Smoking packs per day: 0.5 Smoking cigarettes per day: 10.0 Years smoked: 5 Smoking pack-years: 2.50 Smoking status: Former smoker Tobacco type: cigarettes Second hand tobacco smoke exposure: No Smoking end date: 05/02/87 Alcohol intake: never Substance use: never Gender identity (if verbalized by the patient): Female Spiritual care concerns: No Meds Home Medications
[2020-08-28] MEDS: SODIUM CHLORIDE 0.9% IV 1,000 ML 75 ML IV CONT (10:50)
[2020-08-28 12:34] LABS: Iron 41 ug/dL (37-170)
[2020-08-28 12:45] LABS: Percent Iron Saturation 23 % (20-50)
[2020-08-28 12:47] LABS: Transferrin 107 mg/dL (206-381)
[2020-08-28 12:52] LABS: IFOB Positive Control Positive; Immunochemical Fecal Occult Bl Positive (N)
[2020-08-28 13:02] LABS: Carcinoembryonic Antigen 5.4 ng/mL (0.0-3.0)
--- NOTE | 2020-08-28 13:49 | WPDANESEPPF ---
Anes - Initial Pre Proc Eval Procedure: Operation Date: 08/28/20 14:00 Proposed Procedures p Cystoscopy, Bilateral Retrograde Pyelograms, Bilateral Stent Placement(Bilateral) - Shekhar Teran MD Date/Time: 08/28/20 13:49 Surgeon: Parul Pre Op Diagnosis: uti with acute renal injury Patient Data Age: 59 Gender: F Height: 1.69 m Weight: 67 kg Last Vital Signs Temp 36.3 C L 08/28/20 08:00 Pulse 64 08/28/20 08:00 Resp 24 H 08/28/20 08:00 BP 144/115 H 08/28/20 08:00 Pulse Ox 100 08/28/20 08:00 Allergies Allergy/AdvReac Type Severity Reaction Status Date / Time codeine Allergy Mild Nausea and Verified 08/27/20 13:48 Vomiting penicillin G Allergy Mild Nausea and Verified 08/27/20 13:48 Vomiting Sulfa (Sulfonamide Allergy Mild Nausea and Verified 08/27/20 13:48 Antibiotics) Vomiting hydrocodone AdvReac Intermediate Nausea and Verified 08/27/20 13:48 Vomiting tramadol AdvReac Intermediate Nausea and Verified 08/27/20 13:48 Vomiting Home Medications Medication Instructions Recorded Confirmed Type lorazepam 1 mg PO TID PRN 08/27/20 08/27/20 History Laboratory Tests 08/28/20 08/28/20 08/28/20 01:18 01:18 01:18 WBC RBC Hgb Hct MCV MCH MCHC RDW Plt Count MPV Immature Gran % (Auto) Neut % (Auto) Lymph % (Auto) Clark % (Auto) Eos % (Auto) Baso % (Auto) Lymph # (Auto) Clark # (Auto) Eos # (Auto) Baso # (Auto) Abs Immat Gran (auto) Absolute Neuts (auto) Absolute Nucleated RBC Nucleated RBC % Absolute Retic Percent Retic Immature Retic Fraction Retic Hgb Content Sodium Potassium Chloride Carbon Dioxide Anion Gap BUN Creatinine Estim Creat Clear Calc Estimated GFR Glucose Calcium Magnesium Iron TIBC % Saturation Transferrin Ferritin Lactate Dehydrogenase Carcinoembryonic Ag Vitamin B12 Folate RBC Folate Hematocrit TSH (Reflex) Free T4 Total Catecholamines Pending Urine Protein Cancelled Urine Osmolality Pending U Random Total Protein 43 mg/dL mg/dL Ur Random Sodium 36 meq/L meq/L Ur Random Urea 324 MG/DL MG/DL Ur Random Dopamine Pending Ur Random Epinephrine Pending U Random Norepinephrine Pending Urine Creatinine Pending Stl Occult Blood (IFOB) Cotinine Negative Urine Histoplasma Ag Pending Indirect Antiglob Test 08/28/20 08/28/20 08/28/20 05:21 05:54 05:54 WBC 5.9 K/mm3 K/mm3 (4.5-10.0) RBC 2.48 M/mm3 L M/mm3 (4.2-5.4) Hgb 7.4 g/dL L g/dL (12.0-15.0) Hct 22.5 % L % (37.0-47.0) MCV 90.7 fl fl (80-100) MCH 29.8 pg pg (26-34) MCHC 32.9 g/dl g/dl (32-36) RDW 15.6 % H % (11.5-14.5) Plt Count 210 k/mm3 k/mm3 (150-375) MPV 9.8 fl fl (7.4-10.4) Immature Gran % (Auto) 0.3 % % (0-0.5) Neut % (Auto) 73.3 % H % (45.5-73.1) Lymph % (Auto) 14.8 % L % (18.3-44.2) Clark % (Auto) 9.6 % H % (2.6-8.5) Eos % (Auto) 1.7 % % (0-4.4) Baso % (Auto) 0.3 % % (0.2-1.2) Lymph # (Auto) 0.87 K/mm3 L K/mm3 (0.9-3.2) Clark # (Auto) 0.6 K/mm3 K/mm3 (0.1-0.6) Eos # (Auto)
--- NOTE | 2020-08-28 13:59 | WPDURCON ---
Assessment and Plan Assessment and plan (1) Abdominal pain: Code(s): R10.9 - Unspecified abdominal pain Status: Acute Assessment and Plan: Partially attributed to bilateral hydronephrosis. (2) Bilateral hydronephrosis: Code(s): N13.30 - Unspecified hydronephrosis Status: Acute Assessment and Plan: Secondary to Large Mass in the sigmoid colon. Plan to go to the OR today for : Cystoscopy,bilateral ureteroscopy with bilateral stent placements, bilateral retrograde pyelogram. Obtain consent, keep NPO. Urology Consult Note HPI Date Seen: 08/28/20 Requesting Physician: Kimmy Enriquez MD Primary Care Provider: Dilshad Denney, Consult Narrative Narrative: Dina Smith is a 59 year old female who presented to the ER yesterday for lower abdominal pain that started two days prior. She denies fever,chills, nausea, vomiting, dysuria, frequency, urgency, nocturia, incontience, hesitancy, straining or flank pain. She has a complicated GI history with colorectal cancer that required a resection, chemotherapy, a colostomy and reversal in 2015. She remains under the care of Dr. Smith and had a PET scan most recently at the beginning of 2019 which was normal according to the patient. She denies any difficulty with urination prior or any urologic history, but does state she had some gross hematuria recently. Her WBC is 5.9, creatinine is 3.8, UA is suspicious for infection, urine culture and blood cultures are pending. CT shows: 4 cm probable lateral segment left hepatic metastasis, Increased bilateral, hydroureteronephrosis since 09/12/2019, suggesting either metastatic obstruction versus postsurgical or post-radiation strictures of the distal ureters, Status post partial colectomy. MAILE shows Large Mass in the right anterior distal sigmoid colon which appears to be causing hydronephrosis. Review of Systems Cardiovascular: Cardiovascular: Denies chest pain Respiratory: Respiratory: Reports no additional respiratory complaints Gastrointestinal: Gastrointestinal: Reports abdominal pain, Denies nausea and Denies vomiting Genitourinary: Genitourinary: Reports hematuria, Denies nocturia, Denies dysuria, Denies pelvic pain, Denies flank pain, Denies urinary hesitancy and Denies urinary urgency PMFSH Past Medical History Medical History Anemia Anxiety Colon cancer Congestive heart failure EF 55-60% echo in 03/2020 Hypertension Moderate aortic regurgitation Normal colonoscopy Port-A-Cath in place Surgical History Surgical History Colostomy status Later taken down. H/O endoscopy H/O lymph node biopsy H/O: hysterectomy History of bone marrow biopsy History of colon resection Family History Family History Grandparent Cerebrovascular accident Pancreas cancer Lung cancer Mother Colon cancer Social History Social History Social History: the patient is . She has 5 children. The patient is now on disability. The patient is a full code. She does not have a durable power tax associate attorney for healthcare. She is a former smoker. The patient smoked marijuana in her younger days. The patient stated that she was given medical marijuana at 1 time but decided she did not like it. So she stop using marijuana altogether. No alcohol or illicit drug use. Smoking packs per day: 0.5 Smoking cigarettes per day: 10.0 Years smoked: 5 Smoking pack-years: 2.50 Smoking status: Former smoker Tobacco type: cigarettes Second hand tobacco smoke exposure: No Smoking end date: 05/02/87 Alcohol intake: never Substance use: never Living arrangements: with family Gender identity (if verbalized by the patient): Female Spiritual care concerns: No Meds Home
[2020-08-28] MEDS: SODIUM CHLORIDE 0.9% IV 500 ML 30 ML IV CONT (14:15)
--- NOTE | 2020-08-28 14:33 | PM.IMPN ---
Progress Note: A&P Assessment and Plan (1) Bilateral hydronephrosis: Code(s): N13.30 - Unspecified hydronephrosis Status: Acute Assessment and Plan: ----- CT shows increased bilateral hydronephrosis since her last scanned about a year ago suggesting either metastatic obstruction or postsurgical/ radiation strictures of the distal ureters. The patient is going down for likely stent placement and I will wait for Urology is further recommendations. Her creatinine has not improved since being here. UA is pending and we will continue ceftriaxone at this time. (2) Abdominal pain: Code(s): R10.9 - Unspecified abdominal pain Status: Acute Assessment and Plan: ------ Likely due to above, continue pain medications and antibiotics at this time. (3) Acute renal injury: Code(s): N17.9 - Acute kidney failure, unspecified Status: Acute Assessment and Plan: ----- Nephrology following, see above . (4) UTI (urinary tract infection): Qualifiers: Hematuria presence: with hematuria Urinary tract infection type: acute cystitis Qualified Code(s): N30.01 - Acute cystitis with hematuria Code(s): N39.0 - Urinary tract infection, site not specified Status: Acute Assessment and Plan: ----- UA suspicious for UTI, cultures pending. Continue ceftriaxone and adjust therapy as needed (5) Congestive heart failure: Code(s): I50.9 - Heart failure, unspecified Status: Chronic Assessment and Plan: ----- patient has a history of CHF, unknown type. Echo earlier this year had a normal EF or. She appears euvolemic at this time. Will watch fluid status as she receives IV fluids. (6) Anemia: Code(s): D64.9 - Anemia, unspecified Status: Acute Assessment and Plan: -----Chronically low , likely due to her advanced cancer. stable (7) Colon cancer: Code(s): C18.9 - Malignant neoplasm of colon, unspecified Status: Acute Assessment and Plan: ----- CEA elevated with likely hepatic involvement and possible ureter involvement. Oncology has been consulted Time Spent With Patient Time with patient: 25 - 35 minutes Subjective Date/time seen: 08/28/20 14:33 Interval history: Pt is a 59-year-old female here for acute kidney injury who was seen today. Patient was in good spirits and had no complaints. We went over her recent labs and plan of care. Family on the phone during this conversation. Patient denies chest pain, shortness of breath, fevers, chills, abdominal pain, nausea or vomiting. Review of Systems Review of Systems: All systems reviewed & are unremarkable except as noted in HPI and below Exam Narrative: Exam Narrative: General: Well developed well nourished patient in NAD HEENT: normocephalic Neck: supple Neuro: Alert and oriented x4 CV:RRR with 2/6 systolic murmur heard best at the RSB Resp:CTA Abd: Soft, non distended. No pain to palpation. Positive bowel sounds Extremities: No swelling, erythema, or pain to palpation. Objective Data Vital Signs Vital Signs: Vital Signs - 24 hr 08/27/20 22:00 08/28/20 06:00 08/28/20 08:00 Temperature 97.5 F L 98.1 F 97.4 F L Pulse Rate 52 L 63 64 Respiratory Rate 16 18 24 H Blood Pressure 141/77 H 150/87 H 144/115 H Pulse Oximetry 100 100 100 Intake/Output Intake/Output: Intake & Output 08/25/20 08/26/20 08/27/20 08/28/20 23:59 23:59 23:59 23:59 Intake Total 1540 1790 Output Total 750 Balance 1540 1040 Meds/Results Medications: Active Medications Generic Name Dose Route Start Last Admin Trade Name Freq PRN Reason Stop Dose Admin Fentanyl Citrate 50 mcg 08/27/20 11:41 08/28/20 10:50 Fentanyl Citrate Inj (*Crx) 100 Mcg/2 Ml Vial IV PUSH 50 mcg Q4H PRN Administration Pain Rated 7-10 Fentanyl Citrate 25 mcg 08/28/20 14:16 Fentanyl Citrate Inj (*Crx) 100 Mcg/2 Ml V
--- NOTE | 2020-08-28 14:41 | WPDHPUPDATE1 ---
History and Physical Update Update Date/Time: 08/28/20 14:41 History and Physical has been reviewed, including an updated exam of the patient. There are NO changes in the patient's condition. Risks, benefits, and alternatives have been discussed and questions answered. Patient agrees to proceed with procedure. Chart/imaging reviewed and discussed with patient and Dona Smiley NP. Agree with plans for bilateral ureteral stent placement.
[2020-08-28] MEDS: LIDOCAINE HCL 2% GEL UROJET 10 ML PKG MUCOUS MEM (14:54)
--- NOTE | 2020-08-28 15:16 | PC.NURSE ---
On 08/28/20, the student, [Jennifer Grimaldo ], provided care and completed [facility] documentation on this patient. I have reviewed the student's documentation and agree with the findings.
--- NOTE | 2020-08-28 16:15 | PM.PROC ---
Procedure Note - Detailed Date of procedure: 08/28/20 Pre-op diagnosis: uti with acute renal injury Post-op diagnosis: same Procedure performed: Cystoscopy, bilateral retrograde pyelogram, attempted bilat. ureteral stent placement, bilateral ureterosocpy. Description of procedure: Patient is brought to the operative suite where she was prepped and draped in routine sterile fashion while in a dorsal lithotomy position. Cystoscopy is undertaken with a 19 F rigid cystoscope. The bladder neck and urethra were endoscopically normal. There appears to be a area of extrinsic compression with heaping of the right posterior lateral bladder wall but there is no celia urothelial neoplasm, fistula formation or other identifiable intravesical pathology. Eight F bulb tip catheter was used to obtain bilateral retrograde pyelogram. There appears to be near complete obstruction of the right distal ureter and I can't get contrast beyond the point of obstruction is about 5-10 cm above the ureterovesical junction. There is a similar pattern on the left but I was able to get a bit of contrast by that. Despite exhaustive attempts at passing a wire both through angiographic catheters and a rigid ureteral scope bilaterally, I was unable to negotiate what appears to be concentric strictures. Anesthesia: GLMA Surgeon: Shekhar Teran MD Estimated blood loss (mL): 0 Drains: No Packing: No Pathology: none sent Complications: No immediate complications Condition: stable Disposition: PACU
[2020-08-28] MEDS: SODIUM BICARBONATE TAB 650 MG TABLET PO (17:03)
--- NOTE | 2020-08-28 17:22 | PC.NURSE ---
Placed call to Dr. Teran as patient does not understand procedure even after numerous explanations from me and her daughter. Asked Dr. Teran to stop by to talk patient so we can obtain signed consent. He agreed and will be by tomorrow AM early.
[2020-08-29] MEDS: fentaNYL CITRATE INJ (*CRX) 100 MCG/2 ML VIAL 50 MCG IV PUSH (04:52)
[2020-08-29 05:18] LABS: Hematocrit 23.2 % (37.0-47.0); Hemoglobin 7.7 g/dL (12.0-15.0)
[2020-08-29 05:28] LABS: INR 1.1; Prothrombin Time 14.2 Seconds (11.1-14.7)
[2020-08-29 05:29] LABS: Partial Thromboplastin Time 34.8 SECONDS (22.3-36.8)
[2020-08-29 05:30] LABS: Albumin Level 3.1 g/dL (3.5-5.1); Anion Gap 7 mmol/L (8-16); Blood Urea Nitrogen 40 mg/dL (7-17); Calcium 8.5 mg/dL (8.4-10.2); Carbon Dioxide 17 mmol/L (22-30); Chloride 119 mmol/L (98-107); Estimated CRCL calculation 12 ml/min; Estimated Glomerular Filt Rate 12; Glucose 110 mg/dL (65-105); Phosphorus 5.9 mg/dL (2.5-4.5); Potassium 4.2 mmol/L (3.4-5.0); Sodium 143 mmol/L (137-145)
[2020-08-29 06:00] VITALS: BP 146/76; PULSE 56; RESP 16; TEMP 36.9; O2SAT 100
[2020-08-29] MEDS: SODIUM CHLORIDE 0.9% IV 1,000 ML 75 ML IV CONT ×2 (06:43→22:05)
--- NOTE | 2020-08-29 07:45 | WPDANESPN ---
Anes - Prog Note Post-Op Date/Time: 08/29/20 07:45 Cardiovascular status: normal Respiratory status: normal Airway patency: baseline Mental status: baseline Post-Op hydration status: normal Vital Signs: Last Vital Signs Temp 98.4 F 08/29/20 06:00 Pulse 56 L 08/29/20 06:00 Resp 16 08/29/20 06:00 BP 146/76 H 08/29/20 06:00 Pulse Ox 100 08/29/20 06:00 Pain Score (VAS): 11/11 I/O: Intake & Output 08/28/20 08/28/20 08/29/20 15:59 23:59 07:59 Intake Total 4028 882 9516 Output Total 400 550 Balance 1290 230 690 Laboratory Tests 08/29/20 05:03 08/29/20 05:02 08/28/20 08/28/20 08/28/20 05:21 05:54 05:54 Hgb Hct PT INR APTT Sodium Potassium Chloride Carbon Dioxide Anion Gap BUN Creatinine Estim Creat Clear Calc Estimated GFR Glucose Calcium Phosphorus Iron TIBC % Saturation 24 Transferrin Ferritin Albumin Carcinoembryonic Ag Vitamin B12 RBC Folate Hematocrit Free T4 Stl Occult Blood (IFOB) Positive H Indirect Antiglob Test Negative 08/28/20 08/28/20 08/28/20 05:54 05:54 05:54 Hgb Hct PT INR APTT Sodium Potassium Chloride Carbon Dioxide Anion Gap BUN Creatinine Estim Creat Clear Calc Estimated GFR Glucose Calcium Phosphorus Iron 41 TIBC 177 L % Saturation 23 Transferrin Ferritin 820.00 H Albumin Carcinoembryonic Ag 5.4 H Vitamin B12 RBC Folate Hematocrit Free T4 0.65 L Stl Occult Blood (IFOB) Indirect Antiglob Test 08/28/20 08/28/20 08/29/20 05:54 12:22 05:02 Hgb Hct PT 14.2 INR 1.1 APTT 34.8 Sodium Potassium Chloride Carbon Dioxide Anion Gap BUN Creatinine Estim Creat Clear Calc Estimated GFR Glucose Calcium Phosphorus Iron TIBC % Saturation Transferrin 107 L Ferritin Albumin Carcinoembryonic Ag Vitamin B12 392.0 RBC Folate Pending Hematocrit Pending Free T4 Stl Occult Blood (IFOB) Indirect Antiglob Test 08/29/20 08/29/20 05:02 05:03 Hgb 7.7 L Hct 23.2 L PT INR APTT Sodium 143 Potassium 4.2 Chloride 119 H Carbon Dioxide 17 L Anion Gap 7 L BUN 40 H Creatinine 4.40 H Estim Creat Clear Calc 12 Estimated GFR 12 L Glucose 110 H Calcium 8.5 Phosphorus 5.9 H Iron TIBC % Saturation Transferrin Ferritin Albumin 3.1 L Carcinoembryonic Ag Vitamin B12 RBC Folate Hematocrit Free T4 Stl Occult Blood (IFOB) Indirect Antiglob Test Microbiology 08/27/20 21:12 Blood Blood Culture - Preliminary 08/27/20 20:50 Blood Blood Culture - Preliminary 08/27/20 09:43 Urine Clean Catch Urine Culture - Preliminary Escherichia Coli Patient Feedback: Patient satisfied with anesthetic care.
[2020-08-29] MEDS: LORazepam (*CRX) 1 MG TABLET PO (08:47)
--- NOTE | 2020-08-29 10:32 | PM.IMPN ---
Progress Note: A&P Assessment and Plan (1) Bilateral hydronephrosis: Code(s): N13.30 - Unspecified hydronephrosis Status: Acute Assessment and Plan: ----- CT shows increased bilateral hydronephrosis since her last scanned about a year ago suggesting either metastatic obstruction or postsurgical/ radiation strictures of the distal ureters. they tried to place a stent yesterday but looks like they plan to do a percutaneous nephrostomy procedure today.. Her creatinine has not improved since being here, And actually is worse today. urine culture reviewed, continue ceftriaxone (2) Abdominal pain: Code(s): R10.9 - Unspecified abdominal pain Status: Acute Assessment and Plan: ------ Likely due to above, continue pain medications and antibiotics at this time. (3) Acute renal injury: Code(s): N17.9 - Acute kidney failure, unspecified Status: Acute Assessment and Plan: ----- Nephrology following, see above . (4) UTI (urinary tract infection): Qualifiers: Hematuria presence: with hematuria Urinary tract infection type: acute cystitis Qualified Code(s): N30.01 - Acute cystitis with hematuria Code(s): N39.0 - Urinary tract infection, site not specified Status: Acute Assessment and Plan: ---- urine culture reviewed, continue ceftriaxone (5) Congestive heart failure: Code(s): I50.9 - Heart failure, unspecified Status: Chronic Assessment and Plan: ----- patient has a history of CHF, unknown type. Echo earlier this year had a normal EF. She appears euvolemic at this time. Will watch fluid status as she receives IV fluids. (6) Anemia: Code(s): D64.9 - Anemia, unspecified Status: Acute Assessment and Plan: -----Chronically low , likely due to her advanced cancer. stable (7) Colon cancer: Code(s): C18.9 - Malignant neoplasm of colon, unspecified Status: Acute Assessment and Plan: ----- CEA elevated with likely hepatic involvement and possible ureter involvement. Oncology has been consulted Subjective Date/time seen: 08/29/20 10:32 Interval history: Pt is a 59-year-old female here for acute kidney injury who was seen today. she states that she is still having back pain which she describes 07/12. She says she does not like the fentanyl and would prefer morphine. I explained to her that morphine is not strong is been all but she says it works better for her. We went over her recent labs and plan of care. Family At bedside during this conversation. Patient denies chest pain, shortness of breath, fevers, chills, abdominal pain, nausea or vomiting. Exam Narrative: Exam Narrative: General: Well developed well nourished patient in NAD HEENT: normocephalic Neck: supple Neuro: Alert and oriented x4 CV:RRR with 2/6 systolic murmur heard best at the RSB Resp:CTA Abd: Soft, non distended. No pain to palpation. Positive bowel sounds Extremities: No swelling, erythema, or pain to palpation. Objective Data Vital Signs Vital Signs: Vital Signs - 24 hr 08/28/20 14:31 08/28/20 15:00 08/28/20 15:34 Temperature 97.6 F 98.5 F 97.2 F L Pulse Rate 60 60 62 Respiratory Rate 18 24 H 18 Blood Pressure 156/85 H 159/60 H 167/77 H Pulse Oximetry 100 100 96 08/28/20 15:45 08/28/20 16:00 08/28/20 16:15 Temperature Pulse Rate 63 58 L 55 L Respiratory Rate 14 12 14 Blood Pressure 170/84 H 171/92 H 168/83 H Pulse Oximetry 100 96 96 08/28/20 16:30 08/28/20 17:00 08/28/20 22:00 Temperature 97.4 F L 98.5 F Pulse Rate 67 59 L 52 L Respiratory Rate 16 18 16 Blood Pressure 155/80 H 170/89 H 144/80 H Pulse Oximetry 99 98 99 08/29/20 06:00 Temperature 98.4 F Pulse Rate 56 L Respiratory Rate 16 Blood Pressure 146/76 H Pulse Oximetry 100 Intake/Output Intake/Output: Intake & Output 08/26/20 08/27/20 08/28/20 08/29/20 23:59 2
--- NOTE | 2020-08-29 13:00 | WPDUROPN2 ---
Progress Note: A&P Assessment and Plan (1) Bilateral hydronephrosis: Code(s): N13.30 - Unspecified hydronephrosis Status: Acute (2) Acute renal injury: Code(s): N17.9 - Acute kidney failure, unspecified Status: Acute Additional Plan - Cystoscopy, bilateral retrograde pyelogram, attempted bilat. ureteral stent placement 08/28/20. - patient to be taken to the IR today for bilateral percutaneous nephrostomy tube placement. I explained the function of the nephrostomy tubes to the patient and her daughter. They agreed to proceed with placement today with intervention Radiology. Subjective Subjective Date/Time Seen: 08/29/20 13:00 Exam Const: General: cooperative Eyes: General: appearance normal, both eyes and all related structures Objective Data Vital Signs Vital Signs: Vital Signs - 24 hr 08/28/20 14:31 08/28/20 15:00 08/28/20 15:34 Temperature 36.4 C 36.9 C 36.2 C L Pulse Rate 60 60 62 Respiratory Rate 18 24 H 18 Blood Pressure 156/85 H 159/60 H 167/77 H Pulse Oximetry 100 100 96 08/28/20 15:45 08/28/20 16:00 08/28/20 16:15 Temperature Pulse Rate 63 58 L 55 L Respiratory Rate 14 12 14 Blood Pressure 170/84 H 171/92 H 168/83 H Pulse Oximetry 100 96 96 08/28/20 16:30 08/28/20 17:00 08/28/20 22:00 Temperature 36.3 C L 36.9 C Pulse Rate 67 59 L 52 L Respiratory Rate 16 18 16 Blood Pressure 155/80 H 170/89 H 144/80 H Pulse Oximetry 99 98 99 08/29/20 06:00 Temperature 36.9 C Pulse Rate 56 L Respiratory Rate 16 Blood Pressure 146/76 H Pulse Oximetry 100 Intake/Output Intake/Output: Intake & Output 08/26/20 08/27/20 08/28/20 08/29/20 23:59 23:59 23:59 23:59 Intake Total 1540 2420 1240 Output Total 1150 550 Balance 1540 1270 690 Meds/Results Medications: Active Medications Generic Name Dose Route Start Last Admin Trade Name Freq PRN Reason Stop Dose Admin Fentanyl Citrate 50 mcg 08/27/20 11:41 08/29/20 04:52 Fentanyl Citrate Inj (*Crx) 100 Mcg/2 Ml Vial IV PUSH 50 mcg Q4H PRN Administration Pain Rated 7-10 Ceftriaxone Sodium/Dextrose 1 gm in 50 mls @ 100 mls/hr 08/27/20 13:00 08/28/20 13:27 Rocephin 1 Gm/D5w 50 Ml IVPB Infused Q24H BORIS Infusion Sodium Chloride 1,000 mls @ 75 mls/hr 08/27/20 20:15 08/29/20 06:43 Normal Saline Iv IV CONT 75 mls/hr .[id number] BORIS Administration Lorazepam 1 mg 08/27/20 19:45 08/29/20 08:47 Lorazepam (*Crx) 1 Mg Tablet PO 1 mg TID PRN Administration Anxiety Metoclopramide HCl 5 mg 08/29/20 08:51 Metoclopramide Hcl Inj 10 Mg/2 Ml Vial IV PUSH Q6HR PRN nausea/vomiting Sodium Bicarbonate 650 mg 08/28/20 09:00 08/28/20 17:03 Sodium Bicarbonate Tab 650 Mg Tablet PO 650 mg BID BORIS Administration Radiology Results: ITS Impressions Abdomen/Pelvis CT 08/28/20 08:44 IMPRESSION: 4 cm probable lateral segment left hepatic metastasis Increased bilateral hydroureteronephrosis since 09/12/2019, suggesting either metastatic obstruction versus postsurgical or post-radiation strictures of the distal ureters Status post partial colectomy Renal Ultrasound 08/28/20 08:57 IMPRESSION: 1. Severe bilateral hydronephrosis. On review of immediately prior CT of the abdomen and pelvis there is no urolithiasis. There is however a large mass along the right anterior margin of the distal sigmoid colon which appears contiguous with the seminal vesicles and distal ureters suspicious for recurrent malignancy in this patient with reported history of colorectal carcinoma. The bilateral ureters appear dilated with hydroureter proximally but with increased intraluminal density distally raising concern for malignant invasion. Could consider cystoscopy and ureteroscopy for further evaluation. High Resolution CT 08/28/20 13:50 IMPRESSION: 1. Mild emphysema. 2. Cardiomegaly. 3. Severe bilateral hydronephrosis, worsened from 09/12/19. Retrogr
--- NOTE | 2020-08-29 13:10 | PC.NURSE ---
Pt to CT for bilat nephrostomy tube placement at 1300 via stretcher with fluids running.
[2020-08-29] MEDS: hydrALAZINE HCL 20 MG/ML VIAL (13:35)
[2020-08-29 15:10] VITALS: BP 185/95; PULSE 70; RESP 18; O2SAT 100
[2020-08-29 15:11] VITALS: BP 157/82; PULSE 60; RESP 18; O2SAT 100
[2020-08-29 15:14] VITALS: BP 165/79; PULSE 64; RESP 18; TEMP 36.9; O2SAT 100
[2020-08-29] MEDS: MORPHINE SULFATE (*CRX) 4 MG/ML INJ IV PUSH ×2 (16:19→22:04)
--- NOTE | 2020-08-29 16:42 | PM.CNNEP ---
Assessment and Plan Assessment and plan (1) JOSE (acute kidney injury): Code(s): N17.9 - Acute kidney failure, unspecified Status: Acute Assessment and Plan: presumably due to obstructive uropathy and UTI on antibiotics s/p nephrostomy tube placement follow repeat labs and UOP (2) Chronic renal failure, stage 3b: Code(s): N18.32 - Chronic kidney disease, stage 3b Status: Chronic Assessment and Plan: reported baseline creatinine ~ 1.8mg/dl etiology?? - hypertension? (3) Bilateral hydronephrosis: Code(s): N13.30 - Unspecified hydronephrosis Status: Acute Assessment and Plan: as noted by imaging studies on admission failed attempt at placing ureteral stents due to concentric ureteral strictures s/p percutaneous nephrostomy tube placement by IR today (4) Hypertension: Code(s): I10 - Essential (primary) hypertension Status: Acute Assessment and Plan: somewhat elevated at this time follow trend of hemodynamics (5) Colon cancer: Code(s): C18.9 - Malignant neoplasm of colon, unspecified Status: Acute Assessment and Plan: metastatic disease noted Hem/Onc following (6) UTI (urinary tract infection): Qualifiers: Hematuria presence: with hematuria Urinary tract infection type: acute cystitis Qualified Code(s): N30.01 - Acute cystitis with hematuria Code(s): N39.0 - Urinary tract infection, site not specified Status: Acute Assessment and Plan: urine culture with E.coli on antibiotics Will continue to follow. History of Present Illness Reason for Consult Consult date: 08/29/20 Reason for consult: acute renal failure (on chronic kidney disease) Chief Complaint Chief complaint: uti with acute renal injury History of Present Illness Narrative: I was unable to see the patient yesterday due to imaging studies and subsequent procedures in the OR. The patient is a 59 year old female with a past medical history as outlined below who presented to [facility] ER with complaints of abdominal pain. The abdominal pain is located in the left lower part of her abdomen and has been going on for last two days with ongoing progression of symptoms/severity. Given her complex medical history and her history of colon cancer, the patient came to the ER for further evaluation and therapy. Workup and evaluation in the emergency room demonstrated the patient to be hemodynamically stable but routine blood test demonstrated a marked decline in her kidney function and a urinalysis was highly suggestive of a urinary tract infection. Appropriate cultures were obtained and she was started on antibiotic therapy and did receive IV fluids on the assumption that her elevated creatinine was partly related to volume depletion. Given her history of metastatic colon cancer and these findings as well as the constellation of symptoms that led to her presentation to the ER, she was admitted the hospital for further evaluation and therapy. Since her admission, she subsequently underwent a CT scan of the abdomen pelvis but demonstrated significant hydroureteronephrosis consistent with obstruction. Urology was consulted and subsequent renal ultrasound confirm the bilateral obstruction as well. She subsequent underwent cystoscopy and retrograde pyelograms which demonstrated obstruction as well as ureteral stenosis with inability to place ureteral stents given its presence. Subsequently, today, she underwent percutaneous nephrostomy tube placement by intervention Radiology for definitive treatment of her ureteral obstruction. Unfortunately, despite all these interventions today, her creatinine remains elevated above baseline. Renal consultation was requested due to her acute kidney injury/acute renal failure on top of her baseline kidney disease. The patient normally follows with Dr. NELSON for CKD management
[2020-08-29] MEDS: SODIUM BICARBONATE TAB 650 MG TABLET PO (17:35)
--- NOTE | 2020-08-29 19:22 | PC.NURSE ---
Pt returned to floor at 1510 via stretcher. Pt requesting water and pain manageable.
[2020-08-29 22:00] VITALS: BP 152/74; PULSE 62; RESP 18; TEMP 37; O2SAT 100
[2020-08-30 05:00] LABS: Hematocrit 21.4 % (37.0-47.0); Hemoglobin 7.2 g/dL (12.0-15.0); Mean Corpuscular HGB Conc 33.6 g/dl (32-36); Mean Corpuscular Hemoglobin 30.1 pg (26-34); Mean Corpuscular Volume 89.5 fl (80-100); Mean Platelet Volume 9.4 fl (7.4-10.4); Platelet Count Result 193 k/mm3 (150-375); Red Blood Count 2.39 M/mm3 (4.2-5.4); Red Cell Distribution Width 15.8 % (11.5-14.5); White Blood Count 5.6 K/mm3 (4.5-10.0)
[2020-08-30 05:17] LABS: Albumin Level 2.8 g/dL (3.5-5.1); Anion Gap 7 mmol/L (8-16); Blood Urea Nitrogen 37 mg/dL (7-17); Calcium 8.1 mg/dL (8.4-10.2); Carbon Dioxide 16 mmol/L (22-30); Chloride 121 mmol/L (98-107); Estimated CRCL calculation 14 ml/min; Estimated Glomerular Filt Rate 14; Glucose 91 mg/dL (65-105); Phosphorus 4.8 mg/dL (2.5-4.5); Potassium 3.7 mmol/L (3.4-5.0); Sodium 144 mmol/L (137-145)
[2020-08-30 06:00] VITALS: BP 148/82; PULSE 64; RESP 18; TEMP 37.1; O2SAT 99
[2020-08-30 08:00] VITALS: PULSE 64; RESP 18; O2SAT 99
[2020-08-30] MEDS: METOCLOPRAMIDE HCL INJ 10 MG/2 ML VIAL 5 MG IV PUSH ×2 (09:42→18:38)
[2020-08-30] MEDS: SODIUM BICARBONATE TAB 650 MG TABLET PO ×2 (09:42→17:34)
[2020-08-30] MEDS: MORPHINE SULFATE (*CRX) 4 MG/ML INJ IV PUSH ×2 (09:43→18:38)
[2020-08-30] MEDS: SODIUM CHLORIDE 0.9% IV 1,000 ML 75 ML IV CONT ×2 (09:50→23:02)
--- NOTE | 2020-08-30 11:34 | PM.IMPN ---
Progress Note: A&P Assessment and Plan (1) Bilateral hydronephrosis: Code(s): N13.30 - Unspecified hydronephrosis Status: Acute Assessment and Plan: ----- Cr improving with nephrostomy tubes in place. Will continue IV fluids and monitoring. Likely d/t scar tissue. She is also on ceftriaxone d/t UTI. 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 (2) Abdominal pain: Code(s): R10.9 - Unspecified abdominal pain Status: Acute Assessment and Plan: ------ Likely due to above, continue pain medications and antibiotics at this time. (3) Acute renal injury: Code(s): N17.9 - Acute kidney failure, unspecified Status: Acute Assessment and Plan: ----- Nephrology following, see above . (4) UTI (urinary tract infection): Qualifiers: Hematuria presence: with hematuria Urinary tract infection type: acute cystitis Qualified Code(s): N30.01 - Acute cystitis with hematuria Code(s): N39.0 - Urinary tract infection, site not specified Status: Acute Assessment and Plan: ---- urine culture reviewed, continue ceftriaxone (5) Congestive heart failure: Code(s): I50.9 - Heart failure, unspecified Status: Chronic Assessment and Plan: ----- patient has a history of CHF, unknown type. Echo earlier this year had a normal EF. She appears euvolemic at this time. Will watch fluid status as she receives IV fluids. (6) Anemia: Code(s): D64.9 - Anemia, unspecified Status: Acute Assessment and Plan: -----Chronically low , likely due to her advanced cancer. stable (7) Colon cancer: Code(s): C18.9 - Malignant neoplasm of colon, unspecified Status: Acute Assessment and Plan: -----Upon further review, CT addendumed stating liver abnormality is likely a hemangioma. Per pt, urology stated they thought it was scar tissue on her ureters. With that being said, CEA midly elevated butunsure of her previous CEA. She sees Dr. hammer but I do believe pt wants to switch to eloisa/tawnya. I will provide Dr. Chidi malhotra at discharge. I spoke with the pt in dept about this and offered to call her daughter but said that is not needed. Subjective Date/time seen: 08/30/20 11:34 Interval history: Pt is a 59-year-old female here for acute kidney injury who was seen today. Pt states she is doing okay but is sore from her procedure. She thinks the morphine is helping more than the previous medications. We had a long talk about plan of care and her CT findings. I offered to call her daughter but she states it isn't necessary and that she will talk to her. She does want to switch oncologists. Today she denies chest pain, shortness of breath, fevers, chills, abdominal pain, nausea or vomiting. Exam Narrative: Exam Narrative: General: Well developed well nourished patient in NAD HEENT: normocephalic Neck: supple Neuro: Alert and oriented x4 CV:RRR with 2/6 systolic murmur heard best at the RSB Resp:CTA Abd: Soft, non distended. No pain to palpation. Positive bowel sounds Back: nephrostomy tubes in place. Right does not appear to be draining urine but does have some blood. left with blood and urine. Extremities: No swelling, erythema, or pain to palpation. Objective Data Vital Signs Vital Signs: Vital Signs - 24 hr 08/29/20 15:10 08/29/20 15:11 08/29/20 15:14 Temperature 98.5 F Pulse Rate 70 60 64 Respiratory Rate 18 18 18 Blood Pressure 185/95 H 157/82 H 165/79 H Pulse Oximetry 100 100 100 08/29/20 22:00 08/30/20 06:00 08/30/20 08:00 Temperature 98.6 F 98.8 F Pulse Rate 62 64 64 Respiratory Rate 18 18 18 Blood Pressure 152/74 H 148/82 H Pulse Oximetry 100 99 99 Intake/Output Intake/Output: Intake & Output 08/27/20 1
--- NOTE | 2020-08-30 13:00 | WPDUROPN2 ---
Progress Note: A&P Assessment and Plan (1) JOSE (acute kidney injury): Code(s): N17.9 - Acute kidney failure, unspecified Status: Acute Assessment and Plan: Improving, creatinine is 3.9 and was 4.40. No further evaluation needed from a Urologic standpoint. She will need to keep nephrostomy tubes in and they should be exchanged every three months until rectal mass has been removed or indefinitly if the mass cannot be removed. (2) Bilateral hydronephrosis: Code(s): N13.30 - Unspecified hydronephrosis Status: Acute Assessment and Plan: Would recommend a MAILE repeat when creatinine returns to normal to ensure hydronephrosis has resolved. Subjective Subjective Date/Time Seen: 08/30/20 13:00 POD #1 Bilateral Nephrostomy Tube Placement, Dr. Teran attempted to place bilateral stents on 08/28/2020 but was unable to do so d/t severe obstruction. Doing well today. Creatinine has improved. Review of Systems Cardiovascular: Cardiovascular: Denies chest pain Respiratory: Respiratory: Reports no additional respiratory complaints Gastrointestinal: Gastrointestinal: Reports abdominal pain, Reports nausea and Denies vomiting Genitourinary: Genitourinary: Denies hematuria and Denies dysuria Exam Resp: Effort & Inspection: normal respiratory effort Cardio: Rate: regular rate GI: GI Palp: Yes Soft to palpation and Yes Tenderness to palpation present (GI) (LLQ) : General: Yes no CVA tenderness and Yes other (bilateral nephrostomy tubes are patent and draining to gravity, bloody) Urinary Catheter: Urinary Catheter: other (nephrostomy tubes have bloody drainage present, left more than the right) Extrem: General: no edema Objective Data Vital Signs Vital Signs: Vital Signs - 24 hr 08/29/20 15:10 08/29/20 15:11 08/29/20 15:14 Temperature 98.5 F Pulse Rate 70 60 64 Respiratory Rate 18 18 18 Blood Pressure 185/95 H 157/82 H 165/79 H Pulse Oximetry 100 100 100 08/29/20 22:00 08/30/20 06:00 08/30/20 08:00 Temperature 98.6 F 98.8 F Pulse Rate 62 64 64 Respiratory Rate 18 18 18 Blood Pressure 152/74 H 148/82 H Pulse Oximetry 100 99 99 Intake/Output Intake/Output: Intake & Output 08/27/20 08/28/20 08/29/20 08/30/20 23:59 23:59 23:59 23:59 Intake Total 1540 2420 2970 2040 Output Total 1150 1840 2060 Balance 1540 1270 1130 -20 Meds/Results Medications: Active Medications Generic Name Dose Route Start Last Admin Trade Name Freq PRN Reason Stop Dose Admin Hydralazine HCl 10 mg 08/29/20 13:24 Hydralazine Hcl 20 Mg/Ml Vial IV PUSH Q6HR PRN systolic >170 Ceftriaxone Sodium/Dextrose 1 gm in 50 mls @ 100 mls/hr 08/27/20 13:00 08/30/20 12:57 Rocephin 1 Gm/D5w 50 Ml IVPB 100 mls/hr Q24H BORIS Administration Sodium Chloride 1,000 mls @ 75 mls/hr 08/27/20 20:15 08/30/20 09:50 Normal Saline Iv IV CONT 75 mls/hr .[id number] BORIS Administration Lorazepam 1 mg 08/27/20 19:45 08/29/20 08:47 Lorazepam (*Crx) 1 Mg Tablet PO 1 mg TID PRN Administration Anxiety Metoclopramide HCl 5 mg 08/29/20 08:51 08/30/20 09:42 Metoclopramide Hcl Inj 10 Mg/2 Ml Vial IV PUSH 5 mg Q6HR PRN Administration nausea/vomiting Morphine Sulfate 4 mg 08/29/20 14:08 08/30/20 09:43 Morphine Sulfate (*Crx) 4 Mg/Ml Inj IV PUSH 4 mg Q4H PRN Administration Pain Rated 7-10 Sodium Bicarbonate 650 mg 08/28/20 09:00 08/30/20 09:42 Sodium Bicarbonate Tab 650 Mg Tablet PO 650 mg BID BORIS Administration Radiology Results: ITS Impressions Abdomen/Pelvis CT 08/28/20 08:44 IMPRESSION: 4 cm probable lateral segment left hepatic metastasis Increased bilateral hydroureteronephrosis since 09/12/2019, suggesting either metastatic obstruction versus postsurgical or post-radiation strictures of the distal ureters Status post partial colectomy Renal Ultrasound 08/28/20 08:57 IMPRESSION: 1. Severe bilateral hydron
[2020-08-30 14:00] VITALS: BP 150/87; PULSE 61; RESP 16; TEMP 37.1; O2SAT 98
--- NOTE | 2020-08-30 16:19 | PM.PNNEP ---
Progress Note: A&P Assessment and Plan (1) JOSE (acute kidney injury): Code(s): N17.9 - Acute kidney failure, unspecified Status: Acute Assessment and Plan: presumably due to obstructive uropathy and UTI on antibiotics s/p bilateral nephrostomy tube placement follow repeat labs and UOP (2) Chronic renal failure, stage 3b: Code(s): N18.32 - Chronic kidney disease, stage 3b Status: Chronic Assessment and Plan: reported baseline creatinine ~ 1.8mg/dl etiology?? - hypertension? (3) Bilateral hydronephrosis: Code(s): N13.30 - Unspecified hydronephrosis Status: Acute Assessment and Plan: as noted by imaging studies on admission failed attempt at placing ureteral stents due to concentric ureteral strictures s/p percutaneous nephrostomy tube placement by IR completed (4) Hypertension: Code(s): I10 - Essential (primary) hypertension Status: Acute Assessment and Plan: somewhat elevated at this time follow trend of hemodynamics (5) Colon cancer: Code(s): C18.9 - Malignant neoplasm of colon, unspecified Status: Acute Assessment and Plan: metastatic disease noted and long with CT scan findings Surgical evaluation needed?? Hem/Onc following (6) UTI (urinary tract infection): Qualifiers: Hematuria presence: with hematuria Urinary tract infection type: acute cystitis Qualified Code(s): N30.01 - Acute cystitis with hematuria Code(s): N39.0 - Urinary tract infection, site not specified Status: Acute Assessment and Plan: urine culture with E.coli on antibiotics Will continue to follow. Subjective Date/time seen: 08/30/20 16:19 Appears to be doing reasonably well at this time; no apparent distress voiced; no events overnight or earlier this AM; stable urine output following nephrostomy tube placement; mp acite complaints voiced on my visit. Exam Narrative: Exam Narrative: General: WD/WN AA female in NAD Heart: normal S1 and S2; no rub Lungs: clear to auscultation Abdomen: soft, nontender, nondistended, positive bowel sounds Extremities: no cyanosis or clubbing; no edema Skin: warm and dry Objective Data Vital Signs Vital Signs: Vital Signs Temp Pulse Resp BP Pulse Ox 08/30/20 14:00 37.1 C 61 16 150/87 H 98 08/30/20 08:00 64 18 99 08/30/20 06:00 37.1 C 64 18 148/82 H 99 08/29/20 22:00 37.0 C 62 18 152/74 H 100 Intake/Output Intake/Output: Intake & Output 08/27/20 08/28/20 08/29/20 08/30/20 23:59 23:59 23:59 23:59 Intake Total 1540 2420 2970 2280 Output Total 1150 1840 2260 Balance 1540 1270 1130 20 Meds/Results Medications: Active Medications Generic Name Dose Route Start Last Admin Trade Name Freq PRN Reason Stop Dose Admin Hydralazine HCl 10 mg 08/29/20 13:24 Hydralazine Hcl 20 Mg/Ml Vial IV PUSH Q6HR PRN systolic >170 Ceftriaxone Sodium/Dextrose 1 gm in 50 mls @ 100 mls/hr 08/27/20 13:00 08/30/20 12:57 Rocephin 1 Gm/D5w 50 Ml IVPB 100 mls/hr Q24H BORIS Administration Sodium Chloride 1,000 mls @ 75 mls/hr 08/27/20 20:15 08/30/20 09:50 Normal Saline Iv IV CONT 75 mls/hr .[id number] BORIS Administration Lorazepam 1 mg 08/27/20 19:45 08/29/20 08:47 Lorazepam (*Crx) 1 Mg Tablet PO 1 mg TID PRN Administration Anxiety Metoclopramide HCl 5 mg 08/29/20 08:51 08/30/20 09:42 Metoclopramide Hcl Inj 10 Mg/2 Ml Vial IV PUSH 5 mg Q6HR PRN Administration nausea/vomiting Morphine Sulfate 4 mg 08/29/20 14:08 08/30/20 09:43 Morphine Sulfate (*Crx) 4 Mg/Ml Inj IV PUSH 4 mg Q4H PRN Administration Pain Rated 7-10 Sodium Bicarbonate 650 mg 08/28/20 09:00 08/30/20 09:42 Sodium Bicarbonate Tab 650 Mg Tablet PO 650 mg BID BORIS Administration Radiology Results: ITS Impressions Abdomen/Pelvis CT 08/28/20 08:44 IMPRESSION: 4 cm probable l
[2020-08-30 22:00] VITALS: BP 156/90; PULSE 65; RESP 18; TEMP 36.7; O2SAT 98
[2020-08-31] MEDS: MORPHINE SULFATE (*CRX) 4 MG/ML INJ IV PUSH ×2 (05:25→19:46)
[2020-08-31] MEDS: METOCLOPRAMIDE HCL INJ 10 MG/2 ML VIAL 5 MG IV PUSH ×2 (05:29→19:46)
[2020-08-31 05:39] LABS: Albumin Level 2.9 g/dL (3.5-5.1); Anion Gap 7 mmol/L (8-16); Blood Urea Nitrogen 34 mg/dL (7-17); Calcium 8.1 mg/dL (8.4-10.2); Carbon Dioxide 16 mmol/L (22-30); Chloride 118 mmol/L (98-107); Estimated CRCL calculation 16 ml/min; Estimated Glomerular Filt Rate 18; Glucose 91 mg/dL (65-105); Phosphorus 4.1 mg/dL (2.5-4.5); Potassium 3.8 mmol/L (3.4-5.0); Sodium 141 mmol/L (137-145)
[2020-08-31 06:00] VITALS: BP 150/77; PULSE 66; RESP 18; TEMP 37.2; O2SAT 99
[2020-08-31 06:38] LABS: Hemoglobin 6.8 g/dL (12.0-15.0)
[2020-08-31 06:39] LABS: Hematocrit 17.8 % (37.0-47.0)
[2020-08-31 07:10] LABS: Osmolality, Urine 232 mOsm/kg (50-1200)
--- NOTE | 2020-08-31 07:18 | WPDUROPN2 ---
Progress Note: A&P Assessment and Plan (1) JOSE (acute kidney injury): Code(s): N17.9 - Acute kidney failure, unspecified Status: Acute (2) Bilateral hydronephrosis: Code(s): N13.30 - Unspecified hydronephrosis Status: Acute Additional Plan Slowly improving renal function following placement of bilateral PCN Long talk with pt. about attempting to internalize ureteral stents via antegrade approach - will be difficult and no guarntees that it will be successful given the degree of ureteral obstruction. I would wait 2-3 weeks to attempt that. Will not definitively schedule now - await plans for recurrence of pelvic cancer. Subjective Subjective Date/Time Seen: 08/31/20 07:18 Comfortable, tolerating bilat. nephrostomy tubes well. Review of Systems Cardiovascular: Cardiovascular: Denies chest pain, Denies lightheadedness, Denies palpitations and Denies dyspnea Respiratory: Respiratory: Denies dyspnea Gastrointestinal: Gastrointestinal: Denies diarrhea, Denies nausea and Denies vomiting Genitourinary: Genitourinary: Denies hematuria and Denies dysuria Endocrine: Endocrine: Denies palpitations Exam Const: General: no acute distress Resp: Effort & Inspection: normal respiratory effort GI: Inspection: non-distended GI Palp: No abdominal tenderness and No Guarding due to palpation present (GI) Auscultation: normal bowel sounds Objective Data Vital Signs Vital Signs: Vital Signs - 24 hr 08/30/20 08:00 08/30/20 14:00 08/30/20 22:00 Temperature 98.7 F 98.0 F Pulse Rate 64 61 65 Respiratory Rate 18 16 18 Blood Pressure 150/87 H 156/90 H Pulse Oximetry 99 98 98 08/31/20 06:00 Temperature 99 F Pulse Rate 66 Respiratory Rate 18 Blood Pressure 150/77 H Pulse Oximetry 99 Intake/Output Intake/Output: Intake & Output 08/28/20 08/29/20 08/30/20 08/31/20 23:59 23:59 23:59 23:59 Intake Total 2420 2970 3590 390 Output Total 1150 1840 2985 1525 Balance 1270 1130 605 -1135 Meds/Results Medications: Active Medications Generic Name Dose Route Start Last Admin Trade Name Freq PRN Reason Stop Dose Admin Hydralazine HCl 10 mg 08/29/20 13:24 Hydralazine Hcl 20 Mg/Ml Vial IV PUSH Q6HR PRN systolic >170 Ceftriaxone Sodium/Dextrose 1 gm in 50 mls @ 100 mls/hr 08/27/20 13:00 08/30/20 13:27 Rocephin 1 Gm/D5w 50 Ml IVPB Infused Q24H BORIS Infusion Sodium Chloride 1,000 mls @ 75 mls/hr 08/27/20 20:15 08/30/20 23:02 Normal Saline Iv IV CONT 75 mls/hr .[id number] BROIS Administration Sodium Chloride 250 mls @ 30 mls/hr 08/31/20 06:41 Normal Saline Iv IV CONT 08/31/20 15:00 .[id number] STA Lorazepam 1 mg 08/27/20 19:45 08/29/20 08:47 Lorazepam (*Crx) 1 Mg Tablet PO 1 mg TID PRN Administration Anxiety Metoclopramide HCl 5 mg 08/29/20 08:51 08/31/20 05:29 Metoclopramide Hcl Inj 10 Mg/2 Ml Vial IV PUSH 5 mg Q6HR PRN Administration nausea/vomiting Morphine Sulfate 4 mg 08/29/20 14:08 08/31/20 05:25 Morphine Sulfate (*Crx) 4 Mg/Ml Inj IV PUSH 4 mg Q4H PRN Administration Pain Rated 7-10 Sodium Bicarbonate 650 mg 08/28/20 09:00 08/30/20 17:34 Sodium Bicarbonate Tab 650 Mg Tablet PO 650 mg BID BORIS Administration Radiology Results: ITS Impressions Abdomen/Pelvis CT 08/28/20 08:44 IMPRESSION: 4 cm probable lateral segment left hepatic metastasis Increased bilateral hydroureteronephrosis since 09/12/2019, suggesting either metastatic obstruction versus postsurgical or post-radiation strictures of the distal ureters Status post partial colectomy Renal Ultrasound 08/28/20 08:57 IMPRESSION: 1. Severe bilateral hydronephrosis. On review of immediately prior CT of the abdomen and pelvis there is no urolithiasis. There is however a large mass along the right anterior margin of the distal sigmoid colon which appears contiguous with the seminal vesicles and distal ureters susp
[2020-08-31] MEDS: SODIUM BICARBONATE TAB 650 MG TABLET PO ×2 (09:01→17:20)
--- NOTE | 2020-08-31 10:07 | P.PNNP_ITS ---
Progress Note: A&P Assessment and Plan (1) JOSE (acute kidney injury): Code(s): N17.9 - Acute kidney failure, unspecified Status: Acute Assessment and Plan: * presumably due to obstructive uropathy and UTI * on antibiotics * getting IV fluids. * s/p bilateral nephrostomy tube placement * Creatinine gradually improving (2) Chronic renal failure, stage 3b: Code(s): N18.32 - Chronic kidney disease, stage 3b Status: Chronic Assessment and Plan: * reported baseline creatinine ~ 1.8mg/dl * etiology?? - hypertension? 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 Right stent mostly blood only. Not very much urine from that one. (4) Hypertension: Code(s): I10 - Essential (primary) hypertension Status: Acute Assessment and Plan: * somewhat elevated at this time * Since the patient has acute kidney injury Will the leave this alone for now. It may improve with recovery. (5) Colon cancer: Code(s): C18.9 - Malignant neoplasm of colon, unspecified Status: Acute Assessment and Plan: * metastatic disease noted and long with CT scan findings * Surgical evaluation needed?? * Hem/Onc following (6) UTI (urinary tract infection): Qualifiers: Hematuria presence: with hematuria Urinary tract infection type: acute cystitis Qualified Code(s): N30.01 - Acute cystitis with hematuria Code(s): N39.0 - Urinary tract infection, site not specified Status: Acute Assessment and Plan: * urine culture with E.coli * on Ceftriaxone * no fever. White cell count okay. Will continue to follow. Subjective Date/time seen: 08/31/20 10:07 Interval history: Patient feels okay. No shortness of breath she does not have an appetite. No bowel movements and 2 days. Review of Systems Cardiovascular: Cardiovascular: Reports no additional cardiovascular complaints Respiratory: Respiratory: Reports no additional respiratory complaints Gastrointestinal: Gastrointestinal: Reports no additional gastrointestinal complaints Genitourinary: Genitourinary: Reports no additional female genitourinary complaints Exam Narrative: Exam Narrative: General: WD/WN AA female in NAD Heart: normal S1 and S2; no rub or gallop Lungs: clear to auscultation Abdomen: soft, nontender, nondistended, positive bowel sounds Extremities: no cyanosis or clubbing; no edema Skin: No rash Objective Data Vital Signs Vital Signs: Vital Signs - 24 hr 08/30/20 14:00 08/30/20 22:00 08/31/20 06:00 Temperature 37.1 C 36.7 C 37.2 C Pulse Rate 61 65 66 Respiratory Rate 16 18 18 Blood Pressure 150/87 H 156/90 H 150/77 H Pulse Oximetry 98 98 99 Intake/Output Intake/Output: Intake & Output 08/28/20 08/29/20 08/30/20 08/31/20 23:59 23:59 23:59 23:59 Intake Total 2420 2970 3590 390 Output Total 1150 1840 2985 1525 Balance 1270 1130 605 1135 Meds/Results Medications:
--- NOTE | 2020-08-31 10:07 | PM.PNNEP ---
Progress Note: A&P Assessment and Plan (1) JOSE (acute kidney injury): Code(s): N17.9 - Acute kidney failure, unspecified Status: Acute Assessment and Plan: presumably due to obstructive uropathy and UTI on antibiotics getting IV fluids. s/p bilateral nephrostomy tube placement Creatinine gradually improving (2) Chronic renal failure, stage 3b: Code(s): N18.32 - Chronic kidney disease, stage 3b Status: Chronic Assessment and Plan: reported baseline creatinine ~ 1.8mg/dl etiology?? - hypertension? 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 Right stent mostly blood only. Not very much urine from that one. (4) Hypertension: Code(s): I10 - Essential (primary) hypertension Status: Acute Assessment and Plan: somewhat elevated at this time Since the patient has acute kidney injury Will the leave this alone for now. It may improve with recovery. (5) Colon cancer: Code(s): C18.9 - Malignant neoplasm of colon, unspecified Status: Acute Assessment and Plan: metastatic disease noted and long with CT scan findings Surgical evaluation needed?? Hem/Onc following (6) UTI (urinary tract infection): Qualifiers: Hematuria presence: with hematuria Urinary tract infection type: acute cystitis Qualified Code(s): N30.01 - Acute cystitis with hematuria Code(s): N39.0 - Urinary tract infection, site not specified Status: Acute Assessment and Plan: urine culture with E.coli on Ceftriaxone no fever. White cell count okay. Will continue to follow. Subjective Date/time seen: 08/31/20 10:07 Interval history: Patient feels okay. No shortness of breath she does not have an appetite. No bowel movements and 2 days. Review of Systems Cardiovascular: Cardiovascular: Reports no additional cardiovascular complaints Respiratory: Respiratory: Reports no additional respiratory complaints Gastrointestinal: Gastrointestinal: Reports no additional gastrointestinal complaints Genitourinary: Genitourinary: Reports no additional female genitourinary complaints Exam Narrative: Exam Narrative: General: WD/WN AA female in NAD Heart: normal S1 and S2; no rub or gallop Lungs: clear to auscultation Abdomen: soft, nontender, nondistended, positive bowel sounds Extremities: no cyanosis or clubbing; no edema Skin: No rash Objective Data Vital Signs Vital Signs: Vital Signs - 24 hr 08/30/20 14:00 08/30/20 22:00 08/31/20 06:00 Temperature 37.1 C 36.7 C 37.2 C Pulse Rate 61 65 66 Respiratory Rate 16 18 18 Blood Pressure 150/87 H 156/90 H 150/77 H Pulse Oximetry 98 98 99 Intake/Output Intake/Output: Intake & Output 08/28/20 08/29/20 08/30/20 08/31/20 23:59 23:59 23:59 23:59 Intake Total 2420 2970 3590 390 Output Total 1150 1840 2985 1525 Balance 1270 1130 605 -1135 Meds/Results Medications: Active Medications Generic Name Dose Route Start Last Admin Trade Name Freq PRN Reason Stop Dose Admin Hydralazine HCl 10 mg 08/29/20 13:24 Hydralazine Hcl 20 Mg/Ml Vial IV PUSH Q6HR PRN systolic >170 Ceftriaxone Sodium/Dextrose 1 gm in 50 mls @ 100 mls/hr 08/27/20 13:00 08/30/20 13:27 Rocephin 1 Gm/D5w 50 Ml IVPB Infused Q24H BORIS Infusion Sodium Chloride 1,000 mls @ 75 mls/hr 08/27/20 20:15 08/30/20 23:02 Normal Saline Iv IV CONT 75 mls/hr .[id number] BORIS Administration Sodium Chloride 250 mls @ 30 mls/hr 08/31/20 06:41 Normal Saline Iv IV CONT 08/31/20 15:00 .Q8H20M STA Lorazepam 1 mg 08/27/20 19:45 08/29/20 08:47 Albertina
[2020-08-31 11:00] VITALS: BP 144/83; PULSE 60; RESP 18; TEMP 37; O2SAT 99
[2020-08-31 11:25] VITALS: BP 146/87; PULSE 61; RESP 16; TEMP 36.5; O2SAT 98
--- NOTE | 2020-08-31 12:45 | PCDIET ---
Nutrition Follow-Up Complete: Suboptimal oral intake related to decreased appetite as evidenced by patient report on admission of poor appetite/weight loss and intakes of 20-50% of meals since admission. Patient to consume 50% of meals/supplements or greater. Goal: Goal met. Continue goal. Pt current nutrition is heart healthy +Ensure compact Nutrition recommendation: agree Last recorded weight is 67 kg, recommend updated wt Bowel Motility: no BM, reglan on board Labs Reviewed:08/31 Hgb 6.8, Hct 17.8, Albumin 2.9, GFR 18, BUN 34, Cr 3.20 Meds Noted:Colace, Rocephin, NS Additional Notes: Pt eating well, 71% of meals over the last five meals. Current diet appropriate. Ensure compact offered BID to help meet increased needs providing 240 kcals per servings. S/P bilateral nephrostomy tube placement. No BM yet but motility agents on board. We will continue to monitor for adequate intake every 5 days.
[2020-08-31 13:35] VITALS: BP 129/86; PULSE 67; RESP 18; TEMP 37.1; O2SAT 98
[2020-08-31 14:00] VITALS: BP 124/81; PULSE 68; RESP 16; TEMP 36.9; O2SAT 100
[2020-08-31 14:37] LABS: Red Blood Cell Folate >1000 ng/mL RBC (>280)
--- NOTE | 2020-08-31 14:45 | PM.IMPN ---
Progress Note: A&P Assessment and Plan (1) Bilateral hydronephrosis: Code(s): N13.30 - Unspecified hydronephrosis Status: Acute Assessment and Plan: ----- Kidney function improving with nephrostomy tubes in place. Last Cr 3.2 with BUN 24. Will continue IV fluids and monitoring. Likely d/t scar tissue but cannot r/u active cancer. She is also on ceftriaxone d/t UTI. 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 (2) Abdominal pain: Code(s): R10.9 - Unspecified abdominal pain Status: Acute Assessment and Plan: ------ Likely due to above, continue pain medications and antibiotics at this time. (3) Acute renal injury: Code(s): N17.9 - Acute kidney failure, unspecified Status: Acute Assessment and Plan: ----- Nephrology following, see above . (4) UTI (urinary tract infection): Qualifiers: Hematuria presence: with hematuria Urinary tract infection type: acute cystitis Qualified Code(s): N30.01 - Acute cystitis with hematuria Code(s): N39.0 - Urinary tract infection, site not specified Status: Acute Assessment and Plan: ---- urine culture reviewed, continue ceftriaxone (5) Congestive heart failure: Code(s): I50.9 - Heart failure, unspecified Status: Chronic Assessment and Plan: ----- patient has a history of CHF, unknown type. Echo earlier this year had a normal EF. She appears euvolemic at this time. Will watch fluid status as she receives IV fluids. (6) Anemia: Code(s): D64.9 - Anemia, unspecified Status: Acute Assessment and Plan: -----Chronically low and per oncology she has had a workup. She was a little lower today, hgb 6.8 after recent procedure so I have given her one unit of blood. (7) Colon cancer: Code(s): C18.9 - Malignant neoplasm of colon, unspecified Status: Acute Assessment and Plan: -----Upon further review, CT addendumed stating liver abnormality is likely a hemangioma. Per pt, urology stated they thought it was scar tissue on her ureters. With that being said, CEA midly elevated but unsure of her previous CEA. She sees Dr. hammer but I do believe pt wants to switch to eloisa/tawnya. At their request, Conchita consulted. Subjective Date/time seen: 08/31/20 14:45 Interval history: Pt is a 59-year-old female here for acute kidney injury who was seen today. Pt has no complaints today other than some constipation. The pain meds are helping so far but she is sore in the back. Today she denies chest pain, shortness of breath, fevers, chills, abdominal pain, nausea or vomiting. Daughter at bedside with lots of questions about what is causing abnormalities on the ureters. She says she is not getting answers from anyone and nothing is being done and she doesn't want to wait any longer . Explained in depth about her kidney function and that we are working on improving that. Explained that she would need to ask oncology their questions about plan for work up. I have provided the information I know--->CEA midly high but unsure what her baseline, liver lesion doesn't look worrisome, CT chest okay, but that I am unsure about the plan for finding out the cause of the hydroureteronephrosis. They said they want a new oncologist which is fine but I explained to them they wouldn't have answers right away with him either but will have Dr. Arango come and consult. I answered all of their questions. Exam Narrative: Exam Narrative: General: Well developed well nourished patient in NAD HEENT: normocephalic Neck: supple Neuro: Alert and oriented x4 CV:RRR with 2/6 systolic murmur heard best at the RSB Resp:CTA Abd: Soft, non distended. No pain to palpation. Positive bowel sounds Back: nephrostomy tubes in plac
[2020-08-31] MEDS: SODIUM CHLORIDE 0.9% IV 1,000 ML 75 ML IV CONT (15:54)
--- NOTE | 2020-08-31 16:40 | PDONCCN ---
HPI - Date of Consult Date/Time: 08/31/20 16:40 Requesting Physician: Kimmy Enriquez MD Primary Care Provider: Dilshad Denney, - Consult Narrative Reason for consult: Metastatic colon cancer Narrative: Dina Smith is a 59 year old female This is the 59-year-old female who was diagnosed to have stage IV colon cancer in 2018. Two years prior to that she was diagnosed with early stage colon cancer with stage IIIC disease and had surgery done while she was in [place] with colectomy and colostomy bag was placed. Patient also received adjuvant chemotherapy with FOLFOX regimen. Axilla blood and was discontinued after 4 cycles. Subsequently in 2018 she will developed metastatic colon cancer. Patient had debulking surgery and chemotherapy in April of 2018. She was seen by Dr. Smith. Currently she is not on any chemotherapy treatment. She was last seen by the oncologist last month. Patient now came into the hospital with generalize weakness along with abdominal pain. She received Procrit injection for anemia of chronic kidney disease about 2 weeks ago as well. Her creatinine on admission was 3.8. In the ER her hemoglobin was 8.7 now dropped to 6.8. She received blood transfusion today. According to the daughter patient has been receiving blood transfusion on every 3-4 weeks basis. Patient denies any melena hematochezia. Renal ultrasound was performed that showed bilateral hydronephrosis with a large mass along the right anterior margin of the distal sigmoid colon suspicious for recurrent malignancy. According to the patient daughter she had PET scan done in July of 2020. Patient had colonoscopy done on June 2019 and capsule enteroscopy done in June of 2020. Patient had cystoscopy and ureteral stent placement on August 27, 2020. Reports showed there was area of extrinsic compression right posterior lateral bladder wall. Review of Systems - Review of Systems All systems reviewed & are unremarkable except as noted in HPI and bel - Neurologic Reports system reviewed and no additional complaints, except as documented, Reports hearing normal COUNT INCLUDES THE [facility] Medical History: Medical History (Last Reviewed 08/28/20 @ 14:04 by Lorin Smiley APRN) Anemia Anxiety Colon cancer Congestive heart failure EF 55-60% echo in 03/2020 Hypertension Moderate aortic regurgitation Normal colonoscopy Port-A-Cath in place Surgical History: Surgical History (Last Reviewed 08/28/20 @ 14:04 by Lorin Smiley APRN) Colostomy status Later taken down. H/O endoscopy H/O lymph node biopsy H/O: hysterectomy History of bone marrow biopsy History of colon resection Family History: Family History (Last Reviewed 08/28/20 @ 14:04 by Lorin Smiley APRN) Grandparent Cerebrovascular accident Pancreas cancer Lung cancer Mother Colon cancer - Social History Social History: Social History (Last Reviewed 08/28/20 @ 14:04 by Lorin Smiley APRN) Gender Identity: Gender identity (if verbalized by the patient): Female Alcohol Use: Alcohol intake: never Substance Use: Substance use: never Others: Spiritual care concerns: No Living Arrangements: Living arrangements: with family Smoking Status: Smoking status: Former smoker Tobacco type: cigarettes Second hand tobacco smoke exposure: No Smoking end date: 05/02/87 Smoking Pack-years: Smoking packs per day: 0.5 Smoking cigarettes per day: 10.0 Years smoked: 5 Smoking pack-years: 2.50 Meds Home Medications Medication Instructions Recorded Confirmed Type lorazepam 1 mg PO TID PRN 08/27/20 08/27/20 History Allergies Allergy/AdvReac Type Severity Reaction Status Date / Time codeine Allergy Mild Nausea and Verified 08/27/20 13:48 Vomiting penicillin G Allergy Mild Nausea and Verified 08/27/20 13:48 Vomiting Sulfa (Sulfonamide Allergy Mild N
[2020-08-31] MEDS: DOCUSATE SODIUM 100 MG CAPSULE PO (17:20)
[2020-08-31] MEDS: EPOETIN ALFA-EPBX 10,000 UNITS/ML VIAL 20000 UNITS SUB-Q (17:26)
[2020-08-31 22:00] VITALS: BP 144/84; PULSE 71; RESP 18; TEMP 36.7; O2SAT 100
[2020-09-01 06:00] VITALS: BP 140/80; PULSE 70; RESP 18; TEMP 37; O2SAT 100
[2020-09-01] MEDS: SODIUM CHLORIDE 0.9% IV 1,000 ML 75 ML IV CONT ×2 (06:04→18:06)
[2020-09-01] MEDS: MORPHINE SULFATE (*CRX) 4 MG/ML INJ IV PUSH ×2 (06:06→21:28)
[2020-09-01 06:29] LABS: Hemoglobin 7.6 g/dL (12.0-15.0); Mean Corpuscular HGB Conc 34.5 g/dl (32-36); Mean Corpuscular Hemoglobin 30.2 pg (26-34); Mean Corpuscular Volume 87.3 fl (80-100); Platelet Count Result 190 k/mm3 (150-375); Red Blood Count 2.52 M/mm3 (4.2-5.4); Red Cell Distribution Width 15.3 % (11.5-14.5); White Blood Count 4.6 K/mm3 (4.5-10.0)
[2020-09-01 06:37] LABS: Albumin Level 2.8 g/dL (3.5-5.1); Anion Gap 5 mmol/L (8-16); Blood Urea Nitrogen 31 mg/dL (7-17); Carbon Dioxide 20 mmol/L (22-30); Chloride 116 mmol/L (98-107); Estimated CRCL calculation 19 ml/min; Estimated Glomerular Filt Rate 21; Glucose 90 mg/dL (65-105); Phosphorus 3.6 mg/dL (2.5-4.5); Potassium 3.9 mmol/L (3.4-5.0); Sodium 141 mmol/L (137-145)
[2020-09-01 08:00] VITALS: PULSE 70; RESP 18; O2SAT 100
--- NOTE | 2020-09-01 09:16 | P.PNNP_ITS ---
Progress Note: A&P Assessment and Plan (1) JOSE (acute kidney injury): Code(s): N17.9 - Acute kidney failure, unspecified Status: Acute Assessment and Plan: * presumably due to obstructive uropathy and UTI * on antibiotics * getting IV fluids. * s/p bilateral nephrostomy tube placement * Creatinine gradually improving. Down to 2.8 (2) Chronic renal failure, stage 3b: Code(s): N18.32 - Chronic kidney disease, stage 3b Status: Chronic Assessment and Plan: * reported baseline creatinine ~ 1.8mg/dl * etiology?? - hypertension? 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 Right stent Low volume and a bit more bloody. Not very much urine from that one. * she actually passed some urine per urethra this morning and it was yellow. (4) Hypertension: Code(s): I10 - Essential (primary) hypertension Status: Acute Assessment and Plan: * Systolic 120s to 140s * Since the patient has acute kidney injury Will the leave this alone for now. It may improve with recovery. (5) Colon cancer: Code(s): C18.9 - Malignant neoplasm of colon, unspecified Status: Acute Assessment and Plan: * metastatic disease noted and long with CT scan findings * Surgical evaluation needed?? * Hem/Onc following (6) UTI (urinary tract infection): Qualifiers: Hematuria presence: with hematuria Urinary tract infection type: acute cystitis Qualified Code(s): N30.01 - Acute cystitis with hematuria Code(s): N39.0 - Urinary tract infection, site not specified Status: Acute Assessment and Plan: * urine culture with E.coli * on Ceftriaxone * no fever. White cell count okay. Will continue to follow. (7) Anemia: Code(s): D64.9 - Anemia, unspecified Status: Acute Assessment and Plan: hemoglobin still low. It did come up some after a blood transfusion yesterday. will start her on EPO Subjective Date/time seen: 09/01/20 09:16 Interval history: Patient feels okay. No shortness of breath She has some belly discomfort, partially revealed by passing gas. She took Colace last evening but did not do much. She has not had a bowel movement. There is an order for magnesium citrate. Review of Systems Cardiovascular: Cardiovascular: Reports no additional cardiovascular complaints Respiratory: Respiratory: Reports no additional respiratory complaints Gastrointestinal: Gastrointestinal: Reports no additional gastrointestinal complaints Genitourinary: Genitourinary: Reports no additional female genitourinary complaints Exam Narrative: Exam Narrative: General: WD/WN AA female in NAD Heart: normal S1 and S2; no rub or gallop Lungs: clear to auscultation Abdomen: soft, nontender, nondistended, positive bowel sounds Extremities: no edema Skin: No rash Or subcu nodules Objective Data Vital Signs Vital Signs: Vital Signs - 24 hr 08/31/20 11:00 08/31/20 11:25 08/31/20 13:35 Temperature 37.0 C 36.5 C 37.1 C Pulse Rate 60 61 67 Re
--- NOTE | 2020-09-01 09:16 | PM.PNNEP ---
Progress Note: A&P Assessment and Plan (1) JOSE (acute kidney injury): Code(s): N17.9 - Acute kidney failure, unspecified Status: Acute Assessment and Plan: presumably due to obstructive uropathy and UTI on antibiotics getting IV fluids. s/p bilateral nephrostomy tube placement Creatinine gradually improving. Down to 2.8 (2) Chronic renal failure, stage 3b: Code(s): N18.32 - Chronic kidney disease, stage 3b Status: Chronic Assessment and Plan: reported baseline creatinine ~ 1.8mg/dl etiology?? - hypertension? 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 Right stent Low volume and a bit more bloody. Not very much urine from that one. she actually passed some urine per urethra this morning and it was yellow. (4) Hypertension: Code(s): I10 - Essential (primary) hypertension Status: Acute Assessment and Plan: Systolic 120s to 140s Since the patient has acute kidney injury Will the leave this alone for now. It may improve with recovery. (5) Colon cancer: Code(s): C18.9 - Malignant neoplasm of colon, unspecified Status: Acute Assessment and Plan: metastatic disease noted and long with CT scan findings Surgical evaluation needed?? Hem/Onc following (6) UTI (urinary tract infection): Qualifiers: Hematuria presence: with hematuria Urinary tract infection type: acute cystitis Qualified Code(s): N30.01 - Acute cystitis with hematuria Code(s): N39.0 - Urinary tract infection, site not specified Status: Acute Assessment and Plan: urine culture with E.coli on Ceftriaxone no fever. White cell count okay. Will continue to follow. (7) Anemia: Code(s): D64.9 - Anemia, unspecified Status: Acute Assessment and Plan: hemoglobin still low. It did come up some after a blood transfusion yesterday. will start her on EPO Subjective Date/time seen: 09/01/20 09:16 Interval history: Patient feels okay. No shortness of breath She has some belly discomfort, partially revealed by passing gas. She took Colace last evening but did not do much. She has not had a bowel movement. There is an order for magnesium citrate. Review of Systems Cardiovascular: Cardiovascular: Reports no additional cardiovascular complaints Respiratory: Respiratory: Reports no additional respiratory complaints Gastrointestinal: Gastrointestinal: Reports no additional gastrointestinal complaints Genitourinary: Genitourinary: Reports no additional female genitourinary complaints Exam Narrative: Exam Narrative: General: WD/WN AA female in NAD Heart: normal S1 and S2; no rub or gallop Lungs: clear to auscultation Abdomen: soft, nontender, nondistended, positive bowel sounds Extremities: no edema Skin: No rash Or subcu nodules Objective Data Vital Signs Vital Signs: Vital Signs - 24 hr 08/31/20 11:00 08/31/20 11:25 08/31/20 13:35 Temperature 37.0 C 36.5 C 37.1 C Pulse Rate 60 61 67 Respiratory Rate 18 16 18 Blood Pressure 144/83 H 146/87 H 129/86 Pulse Oximetry 99 98 98 08/31/20 14:00 08/31/20 22:00 09/01/20 06:00 Temperature 36.9 C 36.7 C 37.0 C Pulse Rate 68 71 70 Respiratory Rate 16 18 18 Blood Pressure 124/81 144/84 H 140/80 Pulse Oximetry 100 100 100 Intake/Output Intake/Output: Intake & Output 08/29/20 08/30/20 08/31/20 09/01/20 23:59 23:59 23:59 23:59 Intake Total 2970 3590 2580 1000 Output Total 1840 2985 2950 1625 Balance 1130 931 -595 -495 Meds/Results Medications: Active Medications Generic Name Dose Route Start Last Admin
[2020-09-01] MEDS: SODIUM BICARBONATE TAB 650 MG TABLET PO ×2 (09:18→16:30)
[2020-09-01] MEDS: EPOETIN ALFA-EPBX 10,000 UNITS/ML VIAL 10000 UNITS SUB-Q (10:59)
[2020-09-01 12:00] LABS: Magnesium 1.2 mg/dL (1.6-2.3)
[2020-09-01 14:00] VITALS: BP 144/83; PULSE 67; RESP 18; TEMP 36.9; O2SAT 98
--- NOTE | 2020-09-01 14:26 | PM.IMPN ---
Progress Note: A&P Assessment and Plan (1) Bilateral hydronephrosis: Code(s): N13.30 - Unspecified hydronephrosis Status: Acute Assessment and Plan: ----- Kidney function improving with nephrostomy tubes in place. Last Cr 2.8 with BUN 24. Will continue IV fluids and monitoring. Likely d/t scar tissue but cannot r/u active cancer. She is also on ceftriaxone d/t UTI. 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 (2) Abdominal pain: Code(s): R10.9 - Unspecified abdominal pain Status: Acute Assessment and Plan: ------ Likely due to above, continue pain medications and antibiotics at this time. (3) Acute renal injury: Code(s): N17.9 - Acute kidney failure, unspecified Status: Acute Assessment and Plan: ----- Nephrology following, see above . (4) UTI (urinary tract infection): Qualifiers: Hematuria presence: with hematuria Urinary tract infection type: acute cystitis Qualified Code(s): N30.01 - Acute cystitis with hematuria Code(s): N39.0 - Urinary tract infection, site not specified Status: Acute Assessment and Plan: ---- urine culture reviewed, continue ceftriaxone (5) Congestive heart failure: Code(s): I50.9 - Heart failure, unspecified Status: Chronic Assessment and Plan: ----- patient has a history of CHF, unknown type. Echo earlier this year had a normal EF. She appears euvolemic at this time. Will watch fluid status as she receives IV fluids. (6) Anemia: Code(s): D64.9 - Anemia, unspecified Status: Acute Assessment and Plan: -----Chronically low and per oncology she has had a workup. hgb stable today. s/p blood transfusion 08/31. (7) Colon cancer: Code(s): C18.9 - Malignant neoplasm of colon, unspecified Status: Acute Assessment and Plan: -----Upon further review, CT addendumed stating liver abnormality is likely a hemangioma. Per pt, urology stated they thought it was scar tissue on her ureters. With that being said, CEA midly elevated but unsure of her previous CEA. She sees Dr. hammer but I do believe pt wants to switch to eloisa/tawnya. At their request, Conchita consulted and his note has been reviewed. Subjective Date/time seen: 09/01/20 14:26 Interval history: Pt is a 59-year-old female here for acute kidney injury who was seen today. Pt has no complaints today other than some constipation. The pain meds are helping so far but she is sore in the back. Today she denies chest pain, shortness of breath, fevers, chills, abdominal pain, nausea or vomiting. She is passing gas which does help her stomach a little bit. Used to be on pantoprazole but no longer on it. Exam Narrative: Exam Narrative: General: Well developed well nourished patient in NAD HEENT: normocephalic Neck: supple Neuro: Alert and oriented x4 CV:RRR with 2/6 systolic murmur heard best at the RSB Resp:CTA Abd: Soft, non distended. Pain to palpation to the epigastric area. Positive bowel sounds Back: nephrostomy tubes in place. Right does not appear to be draining urine but does have some blood. left with blood and urine. Extremities: No swelling, erythema, or pain to palpation. Objective Data Vital Signs Vital Signs: Vital Signs - 24 hr 08/31/20 22:00 09/01/20 06:00 09/01/20 08:00 Temperature 98.1 F 98.6 F Pulse Rate 71 70 70 Respiratory Rate 18 18 18 Blood Pressure 144/84 H 140/80 Pulse Oximetry 100 100 100 Intake/Output Intake/Output: Intake & Output 08/29/20 08/30/20 08/31/20 09/01/20 23:59 23:59 23:59 23:59 Intake Total 2970 3590 2580 1290 Output Total 1840 2985 2950 1975 Balance 1130 784 -565 -567 Meds/Results Medications: Active Medications Generic Name Dose Route Start Last Admin Tr
[2020-09-01] MEDS: FAMOTIDINE 20 MG TABLET PO (21:28)
[2020-09-01 22:00] VITALS: BP 142/73; PULSE 66; RESP 20; TEMP 36.9; O2SAT 100
[2020-09-01 23:09] LABS: Calculated Total (E+NE) 3 mcg/g cr (9-74); Creatinine, Urine 81 mg/dL (20-275); Dopamine, Urine 105 mcg/g cr (40-390); Norepinephrine, Urine 3 mcg/g cr (7-65)
--- NOTE | 2020-09-02 01:46 | PC.NURSE ---
Daylight Savings Time For Daylight Savings Time Ending in the Fall - Clocks are moved back. For Daylight Savings Time Beginning in the Spring - Clocks are moved ahead. For [facility], the time of change occurs at 0200 hrs. Time is taken from the sql server developer. This entry on the patient's chart recognizes the change in time reflected during documentation. Example: 2 entries for vital signs may be charted for 0200 hrs.
[2020-09-02] MEDS: MORPHINE SULFATE (*CRX) 4 MG/ML INJ IV PUSH ×3 (03:59→22:37)
[2020-09-02 06:00] VITALS: BP 126/75; PULSE 72; RESP 20; TEMP 36.8; O2SAT 100
[2020-09-02] MEDS: SODIUM CHLORIDE 0.9% IV 1,000 ML 75 ML IV CONT ×2 (06:25→21:29)
[2020-09-02 06:43] LABS: Hematocrit 21.6 % (37.0-47.0); Hemoglobin 7.2 g/dL (12.0-15.0); Mean Corpuscular HGB Conc 33.3 g/dl (32-36); Mean Corpuscular Hemoglobin 29.1 pg (26-34); Mean Corpuscular Volume 87.4 fl (80-100); Mean Platelet Volume 9.4 fl (7.4-10.4); Platelet Count Result 185 k/mm3 (150-375); Red Blood Count 2.47 M/mm3 (4.2-5.4); Red Cell Distribution Width 15.4 % (11.5-14.5); White Blood Count 4.5 K/mm3 (4.5-10.0)
[2020-09-02 06:57] LABS: Albumin Level 2.6 g/dL (3.5-5.1); Anion Gap 7 mmol/L (8-16); Blood Urea Nitrogen 28 mg/dL (7-17); Calcium 7.8 mg/dL (8.4-10.2); Carbon Dioxide 19 mmol/L (22-30); Chloride 113 mmol/L (98-107); Estimated CRCL calculation 22 ml/min; Estimated Glomerular Filt Rate 25; Glucose 97 mg/dL (65-105); Magnesium 1.1 mg/dL (1.6-2.3); Phosphorus 3.6 mg/dL (2.5-4.5); Potassium 3.7 mmol/L (3.4-5.0); Sodium 139 mmol/L (137-145)
--- NOTE | 2020-09-02 08:37 | P.PNNP_ITS ---
Progress Note: A&P Assessment and Plan (1) JOSE (acute kidney injury): Code(s): N17.9 - Acute kidney failure, unspecified Status: Acute Assessment and Plan: * presumably due to obstructive uropathy and UTI * on antibiotics * getting IV fluids. * Not eating very well. * No sign of fluid overload * s/p bilateral nephrostomy tube placement * Creatinine gradually improving. Down to 2.4 * continue 1 more day of IV fluids , and reassess (2) Chronic renal failure, stage 3b: Code(s): N18.32 - Chronic kidney disease, stage 3b Status: Chronic Assessment and Plan: * reported baseline creatinine ~ 1.8mg/dl * etiology?? - hypertension? 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 Right stent Low volume and a bit more bloody. Not very much urine from that one. * urology following (4) Hypertension: Code(s): I10 - Essential (primary) hypertension Status: Acute Assessment and Plan: * Systolic 120s to 140s (5) Colon cancer: Code(s): C18.9 - Malignant neoplasm of colon, unspecified Status: Acute Assessment and Plan: * metastatic disease noted and long with CT scan findings * Surgical evaluation needed?? * Hem/Onc following (6) UTI (urinary tract infection): Qualifiers: Hematuria presence: with hematuria Urinary tract infection type: acute cystitis Qualified Code(s): N30.01 - Acute cystitis with hematuria Code(s): N39.0 - Urinary tract infection, site not specified Status: Acute Assessment and Plan: * urine culture with E.coli * on Ceftriaxone * no fever. White cell count okay. (7) Anemia: Code(s): D64.9 - Anemia, unspecified Status: Acute Assessment and Plan: hemoglobin still low. It did come up some after a blood transfusion yesterday. will start her on EPO Subjective Date/time seen: 09/02/20 08:37 Interval history: Patient feels okay. No shortness of breath Still no bowel movement. She is going to try the magnesium citrate today. Eating is fair. Exam Narrative: Exam Narrative: General: WD/WN AA female in NAD Heart: normal S1 and S2; no rub or gallop Lungs: clear Abdomen: soft, nontender, nondistended, positive bowel sounds Extremities: no edema Skin: No rash Objective Data Vital Signs Vital Signs: Vital Signs - 24 hr 09/01/20 14:00 09/01/20 22:00 09/02/20 06:00 Temperature 36.9 C 36.9 C 36.8 C Pulse Rate 67 66 72 Respiratory Rate 18 20 20 Blood Pressure 144/83 H 142/73 H 126/75 Pulse Oximetry 98 100 100 Intake/Output Intake/Output: Intake & Output 08/30/20 08/31/20 09/01/20 09/02/20 23:59 23:59 23:59 22:59 Intake Total 3590 2580 3138 1500 Output Total 2985 2950 2250 1400 Balance 605 -370 888 100 Meds/Results Medications: Active Medications Generic Name Dose Route Start Last Admin Trade Name Freq PRN Reason Stop Dose Admin Epoetin Wilbert-epbx 10,
--- NOTE | 2020-09-02 08:37 | PM.PNNEP ---
Progress Note: A&P Assessment and Plan (1) JOSE (acute kidney injury): Code(s): N17.9 - Acute kidney failure, unspecified Status: Acute Assessment and Plan: presumably due to obstructive uropathy and UTI on antibiotics getting IV fluids. Not eating very well. No sign of fluid overload s/p bilateral nephrostomy tube placement Creatinine gradually improving. Down to 2.4 continue 1 more day of IV fluids , and reassess (2) Chronic renal failure, stage 3b: Code(s): N18.32 - Chronic kidney disease, stage 3b Status: Chronic Assessment and Plan: reported baseline creatinine ~ 1.8mg/dl etiology?? - hypertension? 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 Right stent Low volume and a bit more bloody. Not very much urine from that one. urology following (4) Hypertension: Code(s): I10 - Essential (primary) hypertension Status: Acute Assessment and Plan: Systolic 120s to 140s (5) Colon cancer: Code(s): C18.9 - Malignant neoplasm of colon, unspecified Status: Acute Assessment and Plan: metastatic disease noted and long with CT scan findings Surgical evaluation needed?? Hem/Onc following (6) UTI (urinary tract infection): Qualifiers: Hematuria presence: with hematuria Urinary tract infection type: acute cystitis Qualified Code(s): N30.01 - Acute cystitis with hematuria Code(s): N39.0 - Urinary tract infection, site not specified Status: Acute Assessment and Plan: urine culture with E.coli on Ceftriaxone no fever. White cell count okay. (7) Anemia: Code(s): D64.9 - Anemia, unspecified Status: Acute Assessment and Plan: hemoglobin still low. It did come up some after a blood transfusion yesterday. will start her on EPO Subjective Date/time seen: 09/02/20 08:37 Interval history: Patient feels okay. No shortness of breath Still no bowel movement. She is going to try the magnesium citrate today. Eating is fair. Exam Narrative: Exam Narrative: General: WD/WN AA female in NAD Heart: normal S1 and S2; no rub or gallop Lungs: clear Abdomen: soft, nontender, nondistended, positive bowel sounds Extremities: no edema Skin: No rash Objective Data Vital Signs Vital Signs: Vital Signs - 24 hr 09/01/20 14:00 09/01/20 22:00 09/02/20 06:00 Temperature 36.9 C 36.9 C 36.8 C Pulse Rate 67 66 72 Respiratory Rate 18 20 20 Blood Pressure 144/83 H 142/73 H 126/75 Pulse Oximetry 98 100 100 Intake/Output Intake/Output: Intake & Output 08/30/20 08/31/20 09/01/20 09/02/20 23:59 23:59 23:59 22:59 Intake Total 3590 2580 3138 1500 Output Total 2985 2950 2250 1400 Balance 605 -370 888 100 Meds/Results Medications: Active Medications Generic Name Dose Route Start Last Admin Trade Name Freq PRN Reason Stop Dose Admin Epoetin Wilbert-epbx 10,000 units 09/01/20 09:25 09/01/20 10:59 Epoetin Wilbert-Epbx 10,000 Units/Ml Vial SUB-Q 10,000 units TuThSa@0900 BORIS Administration Famotidine 20 mg 09/01/20 21:00 09/01/20 21:28 Famotidine 20 Mg Tablet PO 20 mg Q12HR BORIS Administration Hydralazine HCl 10 mg 08/29/20 13:24 Hydralazine Hcl 20 Mg/Ml Vial IV PUSH Q6HR PRN systolic >170 Ceftriaxone Sodium/Dextrose 1 gm in 50 mls @ 100 mls/hr 08/27/20 13:00 09/01/20 14:21 Rocephin 1 Gm/D5w 50 Ml IVPB Infused Q24H BORIS Infusion Sodium Chloride 1,000 mls @ 75 mls/hr 08/27/20 20:15 09/02/20 06:25 Normal Saline Iv IV CONT 75 mls/hr .[id number] BORIS Administration Lorazepam 1 mg 08/27/20
[2020-09-02] MEDS: MAGNESIUM SULF 4 GM/WATER100ML 4 GM/100 ML BAG IVPB (08:42)
[2020-09-02] MEDS: SODIUM BICARBONATE TAB 650 MG TABLET PO ×2 (08:45→16:51)
[2020-09-02] MEDS: FAMOTIDINE 20 MG TABLET PO ×2 (08:45→21:30)
--- NOTE | 2020-09-02 12:58 | PM.IMPN ---
Progress Note: A&P Assessment and Plan (1) Bilateral hydronephrosis: Code(s): N13.30 - Unspecified hydronephrosis Status: Acute Assessment and Plan: ----- Kidney function improving with nephrostomy tubes in place. Last Cr 2.4 with BUN 28. Will continue IV fluids and monitoring. Likely d/t scar tissue but cannot r/u active cancer. She is also on ceftriaxone d/t UTI. 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 Will speak with the consulting doctors about plan of care as she may discharge soon. (2) Abdominal pain: Code(s): R10.9 - Unspecified abdominal pain Status: Acute Assessment and Plan: ------ Likely due to above, continue pain medications and antibiotics at this time. (3) Acute renal injury: Code(s): N17.9 - Acute kidney failure, unspecified Status: Acute Assessment and Plan: ----- Nephrology following, see above . (4) UTI (urinary tract infection): Qualifiers: Hematuria presence: with hematuria Urinary tract infection type: acute cystitis Qualified Code(s): N30.01 - Acute cystitis with hematuria Code(s): N39.0 - Urinary tract infection, site not specified Status: Acute Assessment and Plan: ---- urine culture reviewed, continue ceftriaxone (5) Congestive heart failure: Code(s): I50.9 - Heart failure, unspecified Status: Chronic Assessment and Plan: ----- patient has a history of CHF, unknown type. Echo earlier this year had a normal EF. She appears euvolemic at this time. Will watch fluid status as she receives IV fluids. (6) Anemia: Code(s): D64.9 - Anemia, unspecified Status: Acute Assessment and Plan: -----Chronically low and per oncology she has had a workup. hgb stable today. s/p blood transfusion 08/31. There is some blood coming out of her right nephrosotomy tube still. (7) Colon cancer: Code(s): C18.9 - Malignant neoplasm of colon, unspecified Status: Acute Assessment and Plan: -----Upon further review, CT addendumed stating liver abnormality is likely a hemangioma. Per pt, urology stated they thought it was scar tissue on her ureters. With that being said, CEA midly elevated but unsure of her previous CEA. She sees Dr. hammer but I do believe pt wants to switch to eloisa/tawnya. At their request, Conchita consulted and his note has been reviewed. Subjective Date/time seen: 09/02/20 12:58 Interval history: Pt is a 59-year-old female here for acute kidney injury who was seen today. Pt has no complaints today but still has not had a BM. She says she is not taking the additional BM meds because she doesn't want to be up all night . The pain meds are helping so far but she is sore in the back. Today she denies chest pain, shortness of breath, fevers, chills, abdominal pain, nausea or vomiting. She is passing gas which does help her stomach a little bit. Used to be on pantoprazole but no longer on it. Exam Narrative: Exam Narrative: General: Well developed well nourished patient in NAD HEENT: normocephalic Neck: supple Neuro: Alert and oriented x4 CV:RRR with 2/6 systolic murmur heard best at the RSB Resp:CTA Abd: Soft, non distended. Pain to palpation to the epigastric area. Positive bowel sounds Back: nephrostomy tubes in place. Right does not appear to be draining urine but does have some blood. left with blood and urine. Extremities: No swelling, erythema, or pain to palpation. Objective Data Vital Signs Vital Signs: Vital Signs - 24 hr 09/01/20 14:00 09/01/20 22:00 09/02/20 06:00 Temperature 98.5 F 98.5 F 98.3 F Pulse Rate 67 66 72 Respiratory Rate 18 20 20 Blood Pressure 144/83 H 142/73 H 126/75 Pulse Oximetry 98 100 100 Intake/Output Intake/Output: Intake & Outpu
[2020-09-02 14:00] VITALS: BP 140/89; PULSE 74; RESP 20; TEMP 37; O2SAT 100
[2020-09-02] MEDS: MAGNESIUM CITRATE 300 ML BTL 150 ML PO (15:58)
[2020-09-02] MEDS: LORazepam (*CRX) 1 MG TABLET PO (21:34)
[2020-09-02 22:00] VITALS: BP 144/78; PULSE 60; RESP 18; TEMP 36.7; O2SAT 100
[2020-09-03 05:20] LABS: Hematocrit 21.6 % (37.0-47.0); Hemoglobin 7.3 g/dL (12.0-15.0); Mean Corpuscular HGB Conc 33.8 g/dl (32-36); Mean Corpuscular Hemoglobin 29.4 pg (26-34); Mean Corpuscular Volume 87.1 fl (80-100); Mean Platelet Volume 9.2 fl (7.4-10.4); Platelet Count Result 208 k/mm3 (150-375); Red Blood Count 2.48 M/mm3 (4.2-5.4); Red Cell Distribution Width 15.1 % (11.5-14.5); White Blood Count 4.7 K/mm3 (4.5-10.0)
[2020-09-03 05:33] LABS: Albumin Level 2.7 g/dL (3.5-5.1); Anion Gap 6 mmol/L (8-16); Blood Urea Nitrogen 27 mg/dL (7-17); Carbon Dioxide 21 mmol/L (22-30); Chloride 114 mmol/L (98-107); Estimated CRCL calculation 22 ml/min; Estimated Glomerular Filt Rate 25; Glucose 95 mg/dL (65-105); Magnesium 2.1 mg/dL (1.6-2.3); Phosphorus 3.4 mg/dL (2.5-4.5); Potassium 3.8 mmol/L (3.4-5.0); Sodium 141 mmol/L (137-145)
[2020-09-03 06:00] VITALS: BP 143/78; PULSE 66; RESP 18; TEMP 36.4; O2SAT 100
[2020-09-03 08:00] VITALS: PULSE 66; RESP 18; O2SAT 100
[2020-09-03] MEDS: SODIUM BICARBONATE TAB 650 MG TABLET PO ×2 (09:39→18:15)
[2020-09-03] MEDS: FAMOTIDINE 20 MG TABLET PO (09:39)
--- NOTE | 2020-09-03 10:44 | P.PNNP_ITS ---
Progress Note: A&P Assessment and Plan (1) JOSE (acute kidney injury): Code(s): N17.9 - Acute kidney failure, unspecified Status: Acute Assessment and Plan: * presumably due to obstructive uropathy and UTI * on antibiotics * getting IV fluids. * Not eating very well. * No sign of fluid overload * s/p bilateral nephrostomy tube placement * Creatinine has plateaued. It is 2.4 again today. I think we can stop the IV fluids. I do not want her to get volume overloaded and she is eating well. * discussed with PROSTHETICS ASSISTANT Serg. opal for discharge any time from the kidney standpoint. She can follow-up with Dr. Arrieta as an outpatient (2) Chronic renal failure, stage 3b: Code(s): N18.32 - Chronic kidney disease, stage 3b Status: Chronic Assessment and Plan: * reported baseline creatinine ~ 1.8mg/dl * She may be at a new baseline. * etiology?? - hypertension? 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 Right stent Low volume and a bit more bloody. Not very much urine from that one. * urology following (4) Hypertension: Code(s): I10 - Essential (primary) hypertension Status: Acute Assessment and Plan: * Systolic 120s to 140s * Continue same medications. (5) Colon cancer: Code(s): C18.9 - Malignant neoplasm of colon, unspecified Status: Acute Assessment and Plan: * metastatic disease noted and long with CT scan findings * Surgical evaluation needed?? * Hem/Onc following (6) UTI (urinary tract infection): Qualifiers: Hematuria presence: with hematuria Urinary tract infection type: acute cystitis Qualified Code(s): N30.01 - Acute cystitis with hematuria Code(s): N39.0 - Urinary tract infection, site not specified Status: Acute Assessment and Plan: * urine culture with E.coli * on Ceftriaxone * no fever. White cell count okay. (7) Anemia: Code(s): D64.9 - Anemia, unspecified Status: Acute Assessment and Plan: hemoglobin still low. It did come up some after a blood transfusion yesterday. She is von EPO Subjective Date/time seen: 09/03/20 10:44 Interval history: Patient feels okay. No shortness of breath Eating is just fair. Review of Systems Cardiovascular: Cardiovascular: Reports no additional cardiovascular complaints Respiratory: Respiratory: Reports no additional respiratory complaints Gastrointestinal: Gastrointestinal: Reports no additional gastrointestinal complaints Genitourinary: Genitourinary: Reports no additional female genitourinary complaints Exam Narrative: Exam Narrative: General: WD/WN AA female in NAD Heart: normal S1 and S2; no rub or gallop Lungs: clear to auscultation Abdomen: soft, nontender, nondistended, positive bowel sounds Extremities: no edema Skin: No rash Or subcu nodules Objective Data Vital Signs Vital Signs: Vital Signs - 24 hr 09/02/20 14:00 09/02/20 22:00 09/03/20 06:00 Temperature 37.0 C 36.7 C 36.4 C Pulse Rate 74 60 66 R
--- NOTE | 2020-09-03 10:44 | PM.PNNEP ---
Progress Note: A&P Assessment and Plan (1) JOSE (acute kidney injury): Code(s): N17.9 - Acute kidney failure, unspecified Status: Acute Assessment and Plan: presumably due to obstructive uropathy and UTI on antibiotics getting IV fluids. Not eating very well. No sign of fluid overload s/p bilateral nephrostomy tube placement Creatinine has plateaued. It is 2.4 again today. I think we can stop the IV fluids. I do not want her to get volume overloaded and she is eating well. discussed with MOBILE APPLICATION TESTER Serg. okay for discharge any time from the kidney standpoint. She can follow-up with Dr. Arrieta as an outpatient (2) Chronic renal failure, stage 3b: Code(s): N18.32 - Chronic kidney disease, stage 3b Status: Chronic Assessment and Plan: reported baseline creatinine ~ 1.8mg/dl She may be at a new baseline. etiology?? - hypertension? 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 Right stent Low volume and a bit more bloody. Not very much urine from that one. urology following (4) Hypertension: Code(s): I10 - Essential (primary) hypertension Status: Acute Assessment and Plan: Systolic 120s to 140s Continue same medications. (5) Colon cancer: Code(s): C18.9 - Malignant neoplasm of colon, unspecified Status: Acute Assessment and Plan: metastatic disease noted and long with CT scan findings Surgical evaluation needed?? Hem/Onc following (6) UTI (urinary tract infection): Qualifiers: Hematuria presence: with hematuria Urinary tract infection type: acute cystitis Qualified Code(s): N30.01 - Acute cystitis with hematuria Code(s): N39.0 - Urinary tract infection, site not specified Status: Acute Assessment and Plan: urine culture with E.coli on Ceftriaxone no fever. White cell count okay. (7) Anemia: Code(s): D64.9 - Anemia, unspecified Status: Acute Assessment and Plan: hemoglobin still low. It did come up some after a blood transfusion yesterday. She is von EPO Subjective Date/time seen: 09/03/20 10:44 Interval history: Patient feels okay. No shortness of breath Eating is just fair. Review of Systems Cardiovascular: Cardiovascular: Reports no additional cardiovascular complaints Respiratory: Respiratory: Reports no additional respiratory complaints Gastrointestinal: Gastrointestinal: Reports no additional gastrointestinal complaints Genitourinary: Genitourinary: Reports no additional female genitourinary complaints Exam Narrative: Exam Narrative: General: WD/WN AA female in NAD Heart: normal S1 and S2; no rub or gallop Lungs: clear to auscultation Abdomen: soft, nontender, nondistended, positive bowel sounds Extremities: no edema Skin: No rash Or subcu nodules Objective Data Vital Signs Vital Signs: Vital Signs - 24 hr 09/02/20 14:00 09/02/20 22:00 09/03/20 06:00 Temperature 37.0 C 36.7 C 36.4 C Pulse Rate 74 60 66 Respiratory Rate 20 18 18 Blood Pressure 140/89 144/78 H 143/78 H Pulse Oximetry 100 100 100 Intake/Output Intake/Output: Intake & Output 09/01/20 09/02/20 09/02/20 09/03/20 00:59 00:59 23:59 23:59 Intake Total 340 Output Total 1175 Balance -835 Meds/Results Medications: Active Medications Generic Name Dose Route Start Last Admin Trade Name Freq PRN Reason Stop Dose Admin Epoetin Wilbert-epbx 10,000 units 09/01/20 09:25 09/01/20 10:59 Epoetin Wilbert-Epbx 10,000 Units/Ml Vial SUB-Q 10,000 units TuTa@0900 BORIS Administration Famotidine 20 mg
--- NOTE | 2020-09-03 10:47 | PM.DS ---
DS: Admitting Diagnosis Admitting Diagnosis Admitting Diagnosis: uti with acute renal injury DS: Discharge Diagnosis Discharge Diagnosis (1) Bilateral hydronephrosis: Code(s): N13.30 - Unspecified hydronephrosis Status: Acute Assessment and Plan: ----- Kidney function improved with nephrostomy tubes. Last Cr 2.4 with BUN 28 but highest creatine was 4.4. She received ceftriaxone for UTI. 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 She is to follow up with urology and nephrology outpt (2) Abdominal pain: Code(s): R10.9 - Unspecified abdominal pain Status: Acute Assessment and Plan: ------ improved with above treatment (3) Acute renal injury: Code(s): N17.9 - Acute kidney failure, unspecified Status: Acute Assessment and Plan: ----- as above . (4) UTI (urinary tract infection): Qualifiers: Hematuria presence: with hematuria Urinary tract infection type: acute cystitis Qualified Code(s): N30.01 - Acute cystitis with hematuria Code(s): N39.0 - Urinary tract infection, site not specified Status: Acute Assessment and Plan: ---- ceftriaxone completed (5) Congestive heart failure: Code(s): I50.9 - Heart failure, unspecified Status: Chronic Assessment and Plan: ----- patient has a history of CHF, unknown type. Echo earlier this year had a normal EF. (6) Anemia: Code(s): D64.9 - Anemia, unspecified Status: Acute Assessment and Plan: -----Chronically low and per oncology she has had a workup. hgb stable today. s/p blood transfusion 08/31. hgb stable at discharge (7) Colon cancer: Code(s): C18.9 - Malignant neoplasm of colon, unspecified Status: Acute Assessment and Plan: -----Upon further review, CT addendumed stating liver abnormality is likely a hemangioma. Per pt, urology stated they thought it was scar tissue on her ureters. With that being said, CEA midly elevated but unsure of her previous CEA. She sees Dr. hammer but I do believe pt wants to switch to eloisa/tawnya. At their request, Conchita consulted and she will follow up with him. DS: Summary Hospital Course Reason for hospitalization: Acute kidney injury Hospital Course: Patient is a 59-year-old female who presented emergency room for abdominal pain and weakness found to be in JOSE with a creatinine of 3.8. UA suspicious for UTI and she was started on ceftriaxone. Of the abdomen pelvis showed increased bilateral hydroureternephrosis suggesting either metastatic obstruction or postsurgical or post radiation strictures of the distal ureters. Patient was admitted to hospitalist service and was seen by Urology who attempted to stent the ureters but was unable to do so. She underwent a bilateral nephrostomy tube placement which improved her creatinine. She completed this ceftriaxone for her UTI. She also saw Dr. Arango as she is interested in switching oncologist and he plans to follow her in the office. Please see above for further details. Patient was educated about the worrisome signs and symptoms to come back to emergency room for was discharged in stable condition Status at Discharge Functional status at discharge: independent ambulation Overall status at discharge: patient is back to baseline Time Spent with Patient Time attestation: Total time spent providing and/or coordinating discharge services:34 min Time spent: Greater than 30 minutes Exam Narrative: Exam Narrative: General: Well developed well nourished patient in NAD HEENT: normocephalic Neck: supple Neuro: Alert and oriented x4 CV:RRR with 2/6 systolic murmur heard best at the RSB Resp:CTA Abd: Soft, non distended. Pain to palpation to the epigastric area. Positive bowel kaden
[2020-09-03 14:00] VITALS: BP 141/89; PULSE 71; RESP 18; TEMP 36.9; O2SAT 99
[2020-09-03] MEDS: MORPHINE SULFATE (*CRX) 4 MG/ML INJ IV PUSH (15:17)
--- NOTE | 2020-09-03 18:14 | WPDUROPN2 ---
Progress Note: A&P Assessment and Plan (1) JOSE (acute kidney injury): Code(s): N17.9 - Acute kidney failure, unspecified Status: Acute Assessment and Plan: Improving, creatinine is 3.9 and was 4.40. No further evaluation needed from a Urologic standpoint. She will need to keep nephrostomy tubes in and they should be exchanged every three months until rectal mass has been removed or indefinitly if the mass cannot be removed. (2) Bilateral hydronephrosis: Code(s): N13.30 - Unspecified hydronephrosis Status: Acute Assessment and Plan: Would recommend a MAILE repeat when creatinine returns to normal to ensure hydronephrosis has resolved. Additional Plan Slowly improving renal function following placement of bilateral PCN Long talk with pt. about attempting to internalize ureteral stents via antegrade approach - will be difficult and no guarntees that it will be successful given the degree of ureteral obstruction. I would wait 2-3 weeks to attempt that. Will not definitively schedule now - await plans for recurrence of pelvic cancer. 09/03/2020 Our plan will be to leave indwelling nephrostomy tube x10-14 days. Will then attempt to internalize. Further w/u of possible pelvic mass per med. onc. Discussed with pt. at length. Subjective Subjective Date/Time Seen: 09/03/20 18:14 Comfortable, tolerating nephrostomy tubes Review of Systems Cardiovascular: Cardiovascular: Denies chest pain, Denies lightheadedness, Denies palpitations and Denies dyspnea Respiratory: Respiratory: Denies dyspnea Gastrointestinal: Gastrointestinal: Denies diarrhea, Denies nausea and Denies vomiting Genitourinary: Genitourinary: Denies hematuria and Denies dysuria Endocrine: Endocrine: Denies palpitations Exam Const: General: no acute distress Resp: Effort & Inspection: normal respiratory effort GI: Inspection: non-distended GI Palp: No abdominal tenderness and No Guarding due to palpation present (GI) Auscultation: normal bowel sounds Objective Data Vital Signs Vital Signs: Vital Signs - 24 hr 09/02/20 22:00 09/03/20 06:00 09/03/20 08:00 Temperature 98.1 F 97.6 F Pulse Rate 60 66 66 Respiratory Rate 18 18 18 Blood Pressure 144/78 H 143/78 H Pulse Oximetry 100 100 100 09/03/20 14:00 Temperature 98.4 F Pulse Rate 71 Respiratory Rate 18 Blood Pressure 141/89 H Pulse Oximetry 99 Intake/Output Intake/Output: Intake & Output 09/01/20 09/02/20 09/02/20 09/03/20 00:59 00:59 23:59 23:59 Intake Total 390 Output Total 3650 Balance -3260 Meds/Results Medications: Active Medications Generic Name Dose Route Start Last Admin Trade Name Freq PRN Reason Stop Dose Admin Epoetin Wilbert-epbx 10,000 units 09/01/20 09:25 09/01/20 10:59 Epoetin Wilbert-Epbx 10,000 Units/Ml Vial SUB-Q 10,000 units TuThSa@0900 BORIS Administration Famotidine 20 mg 09/01/20 21:00 09/03/20 09:39 Famotidine 20 Mg Tablet PO 20 mg Q12HR BORIS Administration Hydralazine HCl 10 mg 08/29/20 13:24 Hydralazine Hcl 20 Mg/Ml Vial IV PUSH Q6HR PRN systolic >170 Ceftriaxone Sodium/Dextrose 1 gm in 50 mls @ 100 mls/hr 08/27/20 13:00 09/03/20 14:30 Rocephin 1 Gm/D5w 50 Ml IVPB Infused Q24H BORIS Infusion Sodium Chloride 1,000 mls @ 75 mls/hr 08/27/20 20:15 09/02/20 21:29 Normal Saline Iv IV CONT 75 mls/hr .[id number] BORIS Administration Lorazepam 1 mg 08/27/20 19:45 09/02/20 21:34 Lorazepam (*Crx) 1 Mg Tablet PO 1 mg TID PRN Administration Anxiety Magnesium Citrate 150 ml 08/31/20 15:19 09/02/20 15:58 Magnesium Citrate 300 Ml Btl PO 150 ml DAILY PRN Administration constipation Metoclopramide HCl 5 mg 08/29/20 08:51 08/31/20 19:46 Metoclopramide Hcl Inj 10 Mg/2 Ml Vial IV PUSH 5 mg Q6HR PRN Administration nausea/vomiting Morphine Sulfate 4 mg 08/29/20 14:08 09/03/20 15:17 Morphine Sulfate (*Crx) 4 Mg/M
== END 2020-09-03 19:27 | disposition home health service (06) | DRG 683 ==
LOC: ANHED 11:33 → ANH3MEDSUR 12:16
PROVIDERS: Internal Medicine Medical Oncology; Internal Medicine Nephrology; Nurse Practitioner; Physician Assistant; Urology; Admitting Provider Family Medicine; Emergency Provider Emergency Medicine; PCP Family Medicine Sports Medicine; Visit Provider Physician Assistant
PROC: 0TJ98ZZ Inspection of Ureter, Via Natural or Artificial Opening Endoscopic (ICD-10-PCS; CPT 52352; principal; 2020-08-28 14:00)
DX: N17.9 Acute kidney failure, unspecified (principal); I13.0 Hypertensive heart and chronic kidney disease with heart failure and stage 1 through stage 4 chronic kidney disease, or unspecified chronic kidney disease; N13.6 Pyonephrosis; B96.20 Unspecified Escherichia coli [E. coli] as the cause of diseases classified elsewhere; N18.32 Chronic kidney disease, stage 3b; I50.9 Heart failure, unspecified; F41.9 Anxiety disorder, unspecified; D63.0 Anemia in neoplastic disease; Z85.038 Personal history of other malignant neoplasm of large intestine; Z90.710 Acquired absence of both cervix and uterus; Z87.891 Personal history of nicotine dependence
CPT/HCPCS: 36415; 36430; 50432; 71250; 74176; 74420; 76775; 80048; 80053; 80069; 80307; 81001; 81002; 81050; 82274; 82378; 82384; 82570; 82607; 82728; 82746; 82747; 83540; 83550; 83615; 83735; 83935; 84156; 84300; 84439; 84443; 84466; 84540; 85014; 85018; 85025; 85027; 85046; 85610; 85730; 86850; 86900; 86901; 86922; 87040; 87077; 87086; 87088; 87186; 87385; 96361; 96365; 96375; 96376; 97116; 97161; 97165; 99285; A9270; C1726; C1758; C1769; C1887; G0378; J0330; J0360; J0696; J1100; J2250; J2270; J2405; J2704; J2765; J3010; J3475; J7030; J7040; P9016; Q5106; Q9966

== ENCOUNTER 2020-09-10 11:47 | Outpatient (CLI) | payer MEDICARE, MEDICAID, SELFPAY ==
[2020-09-10 12:34] LABS: Anion Gap 11 mmol/L (8-16); Blood Urea Nitrogen 30 mg/dL (7-17); Calcium 9.1 mg/dL (8.4-10.2); Carbon Dioxide 22 mmol/L (22-30); Chloride 105 mmol/L (98-107); Estimated Glomerular Filt Rate 25; Glucose 111 mg/dL (65-105); Potassium 4.4 mmol/L (3.4-5.0); Sodium 138 mmol/L (137-145)
== END 2020-09-10 11:48 | disposition home or self-care (01) ==
PROVIDERS: PCP Family Medicine Sports Medicine; Visit Provider Physician Assistant
DX: N17.9 Acute kidney failure, unspecified (principal)
CPT/HCPCS: 36415; 80048

== ENCOUNTER 2020-09-12 10:51 | Outpatient (CLI) | payer MEDICARE, MEDICAID, SELFPAY ==
[2020-09-12 11:13] LABS: Basophils Percent Auto 0.1 % (0.2-1.2); Eosinophils Absolute Auto 0.2 K/mm3 (0-0.3); Hematocrit 28.8 % (37.0-47.0); Hemoglobin 9.4 g/dL (12.0-15.0); Immature Granulocyte Absolute 0.05 K/mm3 (0.00-0.031); Immature Granulocyte Percent A 0.7 % (0-0.5); Lymphocytes Absolute Auto 0.71 K/mm3 (0.9-3.2); Lymphocytes Percent Auto 9.4 % (18.3-44.2); Mean Corpuscular HGB Conc 32.6 g/dl (32-36); Mean Corpuscular Hemoglobin 28.9 pg (26-34); Mean Corpuscular Volume 88.6 fl (80-100); Mean Platelet Volume 8.5 fl (7.4-10.4); Monocytes Absolute Auto 0.7 K/mm3 (0.1-0.6); Monocytes Percent Auto 8.7 % (2.6-8.5); Neutrophils Absolute Auto 5.9 K/mm3 (1.3-6.7); Neutrophils Percent Auto 78.1 % (45.5-73.1); Platelet Count Result 342 k/mm3 (150-375); Red Blood Count 3.25 M/mm3 (4.2-5.4); Red Cell Distribution Width 15.7 % (11.5-14.5); White Blood Count 7.6 K/mm3 (4.5-10.0)
[2020-09-12 12:29] LABS: Iron 37 ug/dL (37-170)
[2020-09-12 12:38] LABS: Percent Iron Saturation 17 % (20-50)
== END 2020-09-12 10:52 | disposition home or self-care (01) ==
PROVIDERS: PCP Family Medicine Sports Medicine; Visit Provider Internal Medicine Hematology & Oncology
DX: C18.9 Malignant neoplasm of colon, unspecified (principal)
CPT/HCPCS: 36415; 82728; 83540; 83550; 85025

== ENCOUNTER 2020-09-17 21:49 | Emergency (ER) | payer MEDICARE, MEDICAID, SELFPAY ==
--- NOTE | ~2020-09-17 | CT_ITS ---
EXAMINATION: CT abdomen pelvis wo con DATE: 09/18/2020 00:30 INDICATION: Bowel obstruction. TECHNIQUE: Computed tomography (CT) of the abdomen and pelvis was performed without intravenous contr ast. Automated exposure control and iterative reconstruction technique were employed. The dose-length product was 335.17 mGy-cm. COMPARISON: CT abdomen and pelvis 08/28/2020 FINDINGS: The visualized portions of the lung bases demonstrate mild atelectasis and mild chronic rosalia g disease. No pleural effusion. Cardiomegaly is noted. No pericardial effusion. There is a catheter t ip at superior cavoatrial junction. There is a 3.1 cm mass in left hepatic lobe, likely a hemangioma. The gallbladder is distended. The spleen, pancreas, and adrenal glands are normal. There is mild atr ophy of right kidney. There is a 2.6 cm cyst in left kidney. There are bilateral percutaneous nephros chanel tubes in expected positions. There are no dilated loops of bowel. There are surgical changes of the colon. There is focal wall thickening of the sigmoid colon distal to the anastomosis. There is a mildly enlarged perirectal lymph node. There is no free intraperitoneal fluid. There is severe lower lumbar spondylosis. IMPRESSION: 1. Mildly enlarged perirectal lymph node. 2. Gallbladder distention, which may be secondary to fasting. Correlate with physical exam to exclude acute cholecystitis. 3. Focal wall thickening of the sigmoid colon distal to anastomosis. This finding is nonspecific and may be colitis, malignancy, or normal decompressed bowel. Reviewed, dictated and finalized at location A. BREEDER IMPRESSION: 1. Mildly enlarged perirectal lymph node. 2. Gallbladder distention, which may be secondary to fasting. Correlate with ph ysical exam to exclude acute cholecystitis. 3. Focal wall thickening of the sigmoid colon distal to anastomosis. This findi ng is nonspecific and may be colitis, malignancy, or normal decompressed bowel.
--- NOTE | ~2020-09-17 | XR_ITS ---
EXAMINATION: XR chest 1V portable DATE: 09/17/2020 23:24 INDICATION: Weakness TECHNIQUE: frontal view of the chest was obtained. COMPARISON: Chest radiograph dated 08/21/2019 FINDINGS: Right internal jugular central venous port catheter with distal tip near the superior cavoatrial junc tion. Airspace opacities projecting over the elevated right hemidiaphragm. Minimal left basilar opaci ties. No pulmonary edema, pleural effusion or pneumothorax. Cardiomegaly. IMPRESSION: 1. Confluent opacities at the right lung base with minimal left basilar opacities most likely atelect asis although differential includes pneumonia. 2. Cardiomegaly. Reviewed, dictated and finalized at location H. UP OPERATOR IMPRESSION: 1. Confluent opacities at the right lung base with minimal left basilar opaciti es most likely atelectasis although differential includes pneumonia. 2. Cardiomegaly.
[2020-09-17 21:55] VITALS: BP 152/100; PULSE 89; RESP 16; TEMP 36.9; O2SAT 98
[2020-09-17] MEDS: LACTATED RINGERS 1,000 ML 999 ML IV CONT (22:30)
[2020-09-17] MEDS: FAMOTIDINE 20 MG/2 ML VIAL 40 MG IV PUSH (22:30)
[2020-09-17] MEDS: ONDANSETRON INJ 4 MG/2 ML VIAL IV PUSH (22:30)
--- NOTE | 2020-09-17 22:47 | ED.GENADULT ---
HPI - General Adult General Chief complaint: Nausea/Vomiting/Diarrhea Stated complaint: weakness Time Seen by Provider: 09/17/20 21:57 Source: patient and family Mode of arrival: ambulatory Limitations: no limitations History of Present Illness HPI narrative: 59-year-old female Kind of a lengthy and complex oncologic history, sounds like she had colon cancer and chemotherapy at [place] 4-5 years ago, and subsequently further surgery at a cancer treatment center in [place] about 2 years ago for either a primary ovarian cancer or pelvic metastases and at that time just had some kind of a peritoneal chemo irrigation from the sound of it Within the last month or 2 she started following up with Dr. Arango here Most recently she was found to have ureteral obstructions from what was first feared to be mass but was subsequently evaluated to likely be scarring Apparently ureteral stenting was attempted but could not be accomplished and she wound up with bilateral nephrostomy tubes Next week she is supposed to have some additional assessments or procedures but they have not been scheduled yet, as well as a PET scan Tonight she comes in with a complaint of feeling blah all day long, pretty much of a general weakness poor appetite and nausea, has rx for morphine and ativan bt is said to have not taken either excessively No fever cough chills anything like that Related Data Home Medications Medication Instructions Recorded Confirmed lorazepam 1 mg PO TID PRN 08/27/20 08/27/20 Allergies Allergy/AdvReac Type Severity Reaction Status Date / Time codeine Allergy Mild Nausea and Verified 08/27/20 13:48 Vomiting penicillin G Allergy Mild Nausea and Verified 08/27/20 13:48 Vomiting Sulfa (Sulfonamide Allergy Mild Nausea and Verified 08/27/20 13:48 Antibiotics) Vomiting hydrocodone AdvReac Intermediate Nausea and Verified 08/27/20 13:48 Vomiting tramadol AdvReac Intermediate Nausea and Verified 08/27/20 13:48 Vomiting Review of Systems Review of Systems: All systems reviewed & are unremarkable except as noted in HPI and below Constitutional: Constitutional: Denies chills, Reports fatigue, Denies fever(s), Denies headache(s) and Reports weakness Eyes: Eyes: Reports no additional eye complaints and Denies change in vision ENT: Denies headache(s), Denies epistaxis, Denies nasal congestion and Denies sore throat Cardiovascular: Cardiovascular: Denies chest pain, Denies leg edema, Denies palpitations and Denies dyspnea Respiratory: Respiratory: Denies cough, Denies dyspnea and Denies wheezing Gastrointestinal: Gastrointestinal: Reports abdominal pain, Reports diarrhea, Reports nausea and Reports vomiting Genitourinary: Genitourinary: Denies hematuria, Denies urinary frequency and Denies dysuria Comments: Urine from nephrostomy has been clear Musculoskeletal: Musculoskeletal: Denies deformity, Denies arthralgias, Denies joint swelling, Denies muscle weakness and Denies numbness Integumentary/Breasts: Skin/Breast: Denies rash and Denies wounds Neurologic: Denies headache(s), Denies focal weakness, Denies numbness and Denies weakness Psychiatric: Psychiatric: Reports no additional psychiatric complaints Endocrine: Endocrine: Reports fatigue and Denies palpitations Hematologic/Lymphatic: Hematologic/Lymphatic: Denies easy bleeding and Denies easy bruising Allergic/Immunologic: Allergic/Immunologic: Denies wheezing PMFSH Past Medical History Medical History Anemia Anxiety Colon cancer Congestive heart failure EF 55-60% echo in 03/2020 Hypertension Moderate aortic regurgitation Normal colonoscopy Port-A-Cath in place Surgical History Surgical History Colostomy status Later taken down. H/O endoscopy H/O lymph node biopsy H/O: hysterectomy History of bone marrow biopsy History
[2020-09-17 23:00] LABS: Basophils Percent Auto 0.2 % (0.2-1.2); Eosinophils Absolute Auto 0.1 K/mm3 (0-0.3); Eosinophils Percent Auto 0.9 % (0-4.4); Hematocrit 26.9 % (37.0-47.0); Hemoglobin 8.9 g/dL (12.0-15.0); Immature Granulocyte Absolute 0.04 K/mm3 (0.00-0.031); Immature Granulocyte Percent A 0.5 % (0-0.5); Lymphocytes Absolute Auto 0.59 K/mm3 (0.9-3.2); Lymphocytes Percent Auto 6.8 % (18.3-44.2); Mean Corpuscular HGB Conc 33.1 g/dl (32-36); Mean Corpuscular Hemoglobin 29.2 pg (26-34); Mean Corpuscular Volume 88.2 fl (80-100); Mean Platelet Volume 8.8 fl (7.4-10.4); Monocytes Absolute Auto 0.6 K/mm3 (0.1-0.6); Monocytes Percent Auto 7.3 % (2.6-8.5); Neutrophils Absolute Auto 7.4 K/mm3 (1.3-6.7); Neutrophils Percent Auto 84.3 % (45.5-73.1); Platelet Count Result 350 k/mm3 (150-375); Red Blood Count 3.05 M/mm3 (4.2-5.4); Red Cell Distribution Width 15.2 % (11.5-14.5); White Blood Count 8.7 K/mm3 (4.5-10.0)
[2020-09-17 23:12] LABS: Alanine Aminotransferase 6 U/L (4-35); Albumin Level 3.7 g/dL (3.5-5.1); Alkaline Phosphatase 64 U/L (38-126); Anion Gap 12 mmol/L (8-16); Aspartate Amino Transferase 28 U/L (14-36); Bilirubin,Total 0.7 mg/dL (0.2-1.3); Blood Urea Nitrogen 35 mg/dL (7-17); Calcium 9.2 mg/dL (8.4-10.2); Carbon Dioxide 18 mmol/L (22-30); Chloride 105 mmol/L (98-107); Estimated Glomerular Filt Rate 25; Glucose 102 mg/dL (65-105); Lipase 340 U/L (23-300); Potassium 4.2 mmol/L (3.4-5.0); Sodium 135 mmol/L (137-145)
[2020-09-17 23:12] LABS: Add Urine Microscopic? YES; Appearance Urine Cloudy (Clear); Bacteria Urine Trace /hpf; Bilirubin Urine Negative (Negative); Blood Urine 1+ (Negative); Budding Yeast Urine Present /hpf; Color Urine Yellow (Yellow); Glucose Urine UA Negative (Negative); Ketones Urine Trace mg/dL (Negative); Leukocyte Esterase Ur 1+ LEU/UL (Negative); Mucus Urine Rare /lpf; Nitrate Urine Negative (Negative); Protein Urine 2+ mg/dL (Negative); RBC Urine 21-50 /hpf (0-2); Specific Grav Ur 1.017 (1.001-1.035); Squamous Epithelial Cell Urine Rare /hpf (Few); Urobilinogen Urine Negative mg/dL (<2.0); WBC Urine 16-20 /hpf
[2020-09-18] VITALS: BP 166/102; PULSE 65; RESP 18; O2SAT 99
[2020-09-18] MEDS: DICYCLOMINE HCL INJ 20 MG/2 ML VIAL IM (00:10)
[2020-09-18 00:45] VITALS: BP 169/100; PULSE 70; RESP 18; O2SAT 99
[2020-09-18 01:25] VITALS: BP 158/52; PULSE 62; RESP 18; O2SAT 99
[2020-09-18] MEDS: HEPARIN SOD FLUSH 500 UNITS/5 ML SYRINGE (01:25)
== END 2020-09-18 01:25 | disposition home or self-care (01) ==
PROVIDERS: Emergency Provider Emergency Medicine; PCP Family Medicine Sports Medicine
DX: R53.1 Weakness (principal); I13.0 Hypertensive heart and chronic kidney disease with heart failure and stage 1 through stage 4 chronic kidney disease, or unspecified chronic kidney disease; N18.9 Chronic kidney disease, unspecified; F41.9 Anxiety disorder, unspecified; D64.9 Anemia, unspecified; I50.9 Heart failure, unspecified; I35.1 Nonrheumatic aortic (valve) insufficiency; Z85.038 Personal history of other malignant neoplasm of large intestine; Z90.49 Acquired absence of other specified parts of digestive tract; Z87.891 Personal history of nicotine dependence; Z92.21 Personal history of antineoplastic chemotherapy
CPT/HCPCS: 36415; 71045; 74176; 80053; 81001; 82533; 83690; 85025; 87086; 87088; 96361; 96372; 96374; 96375; 99284; J0500; J2405; J7120

== ENCOUNTER 2020-09-20 11:54 | Outpatient (CLI) | payer MEDICARE, MEDICAID, SELFPAY ==
--- NOTE | ~2020-09-20 | PE_ITS ---
EXAMINATION: PET skull to mid thigh DATE: 09/20/2020 14:43 INDICATION: Malignant neoplasm of colon. TECHNIQUE: Blood glucose level was 104 mg/dL. 8.248 mCi of 18-fluorodeoxyglucose (18-FDG) was adminis tered i.v. Low dose computed tomography (CT) images were acquired from the base of the brain to the p roximal thighs for attenuation correction and anatomic localization. Automated exposure control was e mployed. Dose-length product (DLP) was 306 mGy-cm. Positron emission tomography (PET) images were acq uired in the same distribution. COMPARISON: CT abdomen and pelvis 09/18/2020, 02/21/19, PET/CT 10/06/19 FINDINGS: Head/neck: There are no pathologically enlarged lymph nodes. Chest: There is mild emphysema. There is mild atelectasis bilaterally. There is mild scarring at left lung apex. No pleural effusion. Cardiomegaly is noted. No pericardial effusion. There is a right int ernal jugular port with tip at superior cavoatrial junction. There are normal-sized bilateral axillar y lymph nodes with mildly increased activity, likely reactive. Abdomen/pelvis/proximal thighs: There is a chronic 3.1 cm mass in left hepatic lobe without increased activity that was hyperenhancing on a prior CT, consistent with a hemangioma. The gallbladder, splee n, pancreas, and adrenal glands are normal. There is mild atrophy of right kidney. There are bilatera l percutaneous nephrostomy tubes in expected positions. There is a 2.3 cm cyst in left kidney. There is an enlarged perirectal lymph node with increased activity. There is bilateral common iliac and rig ht external iliac lymphadenopathy with increased activity. There is focal wall thickening of sigmoid colon distal to the anastomosis with maximum SUV of 15.2. There is a 1.4 x 1.1 cm node in right iliop soas groove with increased activity. There are multiple peritoneal masses with increased activity wit h the largest right anterolateral to the rectum measuring 5.2 x 4.3 cm. There is no free intraperiton eal fluid. IMPRESSION: 1. Peritoneal masses and pelvic lymphadenopathy with increased activity, consistent with metastatic d isease, worsened from 10/06/19. 2. Focal wall thickening of sigmoid colon distal to the anastomosis with increased activity, which ma y be a serosal metastasis or primary adenocarcinoma. Reviewed, dictated and finalized at location A. ASSEMBLER IMPRESSION: 1. Peritoneal masses and pelvic lymphadenopathy with increased activity, consis tent with metastatic disease, worsened from 10/06/19. 2. Focal wall thickening of sigmoid colon distal to the anastomosis with increa sed activity, which may be a serosal metastasis or primary adenocarcinoma.
[2020-09-20 12:53] LABS: Glucose Point of Care 104 (65-105)
== END 2020-09-20 11:55 | disposition home or self-care (01) ==
PROVIDERS: PCP Family Medicine Sports Medicine; Visit Provider Internal Medicine Hematology & Oncology
DX: C18.9 Malignant neoplasm of colon, unspecified (principal); R93.3 Abnormal findings on diagnostic imaging of other parts of digestive tract
CPT/HCPCS: 78815; A9552

== ENCOUNTER 2020-09-25 10:02 | Outpatient (CLI) | payer MEDICARE, MEDICAID, SELFPAY ==
[2020-09-25 10:52] LABS: Potassium 3.6 mmol/L (3.4-5.0)
[2020-09-25 10:54] LABS: Anion Gap 11 mmol/L (8-16); Blood Urea Nitrogen 35 mg/dL (7-17); Calcium 9.4 mg/dL (8.4-10.2); Carbon Dioxide 19 mmol/L (22-30); Chloride 110 mmol/L (98-107); Estimated Glomerular Filt Rate 20; Glucose 109 mg/dL (65-105); Sodium 140 mmol/L (137-145)
== END 2020-09-25 10:03 | disposition home or self-care (01) ==
LOC: ANHLAB 10:05
PROVIDERS: Visit Provider Urology
DX: N13.30 Unspecified hydronephrosis (principal)
CPT/HCPCS: 36415; 80048

== ENCOUNTER 2020-10-05 12:04 | Outpatient (NON) | payer MEDICARE, MEDICAID, SELFPAY ==
[2020-10-05 18:29] LABS: Alanine Aminotransferase 7 U/L (4-35); Albumin Level 3.4 g/dL (3.5-5.1); Alkaline Phosphatase 65 U/L (38-126); Anion Gap 11 mmol/L (8-16); Aspartate Amino Transferase 25 U/L (14-36); Bilirubin,Total 0.3 mg/dL (0.2-1.3); Blood Urea Nitrogen 54 mg/dL (7-17); Calcium 8.8 mg/dL (8.4-10.2); Carbon Dioxide 15 mmol/L (22-30); Chloride 111 mmol/L (98-107); Estimated Glomerular Filt Rate 19; Glucose 118 mg/dL (65-105); Potassium 3.4 mmol/L (3.4-5.0); Sodium 137 mmol/L (137-145)
[2020-10-05 18:30] LABS: Hematocrit 21.7 % (37.0-47.0); Hemoglobin 7.2 g/dL (12.0-15.0); Mean Corpuscular HGB Conc 33.2 g/dl (32-36); Mean Corpuscular Hemoglobin 30.3 pg (26-34); Mean Corpuscular Volume 91.2 fl (80-100); Mean Platelet Volume 9.3 fl (7.4-10.4); Platelet Count Result 431 k/mm3 (150-375); Red Blood Count 2.38 M/mm3 (4.2-5.4); Red Cell Distribution Width 15.7 % (11.5-14.5)
== END 2020-10-05 12:05 ==
PROVIDERS: Visit Provider Internal Medicine Hematology & Oncology
DX: N30.01 Acute cystitis with hematuria (principal); I13.0 Hypertensive heart and chronic kidney disease with heart failure and stage 1 through stage 4 chronic kidney disease, or unspecified chronic kidney disease; N13.30 Unspecified hydronephrosis; Z43.6 Encounter for attention to other artificial openings of urinary tract
CPT/HCPCS: 80053; 85027; 85055

== ENCOUNTER 2020-10-08 01:40 | Outpatient (CLI) | payer MEDICARE, MEDICAID, SELFPAY ==
[2020-10-08 18:53] LABS: SARS-CoV-2 RNA PCR Negative
== END 2020-10-08 01:41 | disposition home or self-care (01) ==
LOC: ANHCOVIDDT 01:40
PROVIDERS: Visit Provider Urology
DX: Z01.818 Encounter for other preprocedural examination (principal); Z20.828 Contact with and (suspected) exposure to other viral communicable diseases
CPT/HCPCS: 87635; C9803; U0003

== ENCOUNTER 2020-10-09 08:15 | Outpatient (RCR) | payer MEDICARE, MEDICAID, SELFPAY ==
[2020-07-12 15:28] LABS: Hematocrit 21.4 % (37.0-47.0); Mean Corpuscular HGB Conc 32.7 g/dl (32-36); Mean Corpuscular Hemoglobin 29.3 pg (26-34); Mean Corpuscular Volume 89.5 fl (80-100); Mean Platelet Volume 8.8 fl (7.4-10.4); Platelet Count Result 296 k/mm3 (150-375); Red Blood Count 2.39 M/mm3 (4.2-5.4); Red Cell Distribution Width 14.8 % (11.5-14.5); White Blood Count 6.7 K/mm3 (4.5-10.0)
[2020-07-13] VITALS (10 sets, daily range): BP systolic 119–142; BP diastolic 74–85; PULSE 55–65; RESP 14–16; TEMP 36.4–37.5; O2SAT 100
[2020-07-13] MEDS: ACETAMINOPHEN 500 MG TABLET PO (08:33)
[2020-07-13] MEDS: diphenhydrAMINE HCl CAP 25 MG CAPSULE PO (08:33)
[2020-07-13] MEDS: SODIUM CHLORIDE 0.9% IV 250 ML 30 ML IV CONT (09:12)
[2020-07-13] MEDS: HEPARIN SOD FLUSH 500 UNITS/5 ML SYRINGE (14:45)
[2020-10-09] VITALS (9 sets, daily range): BP systolic 107–133; BP diastolic 67–85; PULSE 61–78; RESP 12–16; TEMP 36.5–37.3; O2SAT 100
[2020-10-09 09:38] LABS: Hematocrit 20.8 % (37.0-47.0)
[2020-10-09] MEDS: ACETAMINOPHEN 325 MG TABLET 650 MG PO (10:30)
[2020-10-09] MEDS: diphenhydrAMINE HCl CAP 25 MG CAPSULE PO (10:32)
[2020-10-09] MEDS: FUROSEMIDE INJ 40 MG/4 ML VIAL 20 MG IV PUSH (15:41)
[2020-10-09] MEDS: HEPARIN SOD FLUSH 500 UNITS/5 ML SYRINGE (18:30)
== END 2020-10-10 23:59 | disposition home or self-care (01) ==
LOC: ANHCPCTRAN 08:15
PROVIDERS: PCP Family Medicine Sports Medicine; Referring Provider Internal Medicine Medical Oncology; Visit Provider Internal Medicine Hematology & Oncology
DX: C18.6 Malignant neoplasm of descending colon (principal); D50.0 Iron deficiency anemia secondary to blood loss (chronic)
CPT/HCPCS: 36415; 36430; 85014; 85018; 85027; 86850; 86900; 86901; 86922; 96374; A9270; J1940; J7050; P9016

== ENCOUNTER 2020-10-11 00:27 | Day surgery (SDC) | payer MEDICARE, MEDICAID, SELFPAY ==
[2020-10-05 12:47] VITALS: BMI 22.3
--- NOTE | ~2020-10-11 | XR_ITS ---
EXAMINATION: XR retrograde pyelogram BI DATE: 10/11/2020 10:44 INDICATION: Bilateral hydronephrosis. Pelvic mass. TECHNIQUE: A total of 10 fluoroscopic images of the abdomen and pelvis were obtained during procedure performed by Dr. Teran. Radiologist was not present for the imaging or procedure. The amount of flu oroscopy time used during this procedure was 3.1 minutes. COMPARISON: CT dated 09/18/2020 FINDINGS: Images demonstrate bilateral percutaneous nephrostomy tubes with distal tips at the bilateral renal p elvises sees. Contrast injection demonstrates mild right and moderate left hydronephrosis. Advancemen t of interest. Wires along both ureters resulting: Of the wires in the region of the distal ureter renee ggesting distal obstruction. Attempted passage of a retrograde wire along the distal right ureter charli ears likely unsuccessful with the wire bending as would be expected when and contouring obstruction. There also appears to be obstruction of retrograde injected contrast at the distal left ureter. No ev ident obstructing stones identified. IMPRESSION: 1. Findings suspicious for distal ureteral obstructions on both the left and right. Correlate with pr ocedure note for further detail. Reviewed, dictated and finalized at location A. RATOR OPERATOR IMPRESSION: 1. Findings suspicious for distal ureteral obstructions on both the left and ri ght. Correlate with procedure note for further detail.
--- NOTE | 2020-10-11 06:10 | ECG_ITS ---
Measurements Intervals [place] Rate: 76 P: 34 CT: 191 QRS: -72 QRSD: 108 T: 3 QT: 372 QTc: 420 Interpretive Statements SINUS RHYTHM INCOMPLETE RIGHT BUNDLE BRANCH BLOCK ANTERIOR INFARCT, AGE INDETERMINATE INFERIOR INFARCT, AGE INDETERMINATE BASELINE ARTIFACT- I, IIII, AVR, AVL ABNORMAL ECG Electronically Signed On 10-11-2020 7:22:25 POULTICE MACHINE OPERATOR by Arnulfo Zaragoza D.O.
--- NOTE | 2020-10-11 06:52 | WPDHPUPDATE1 ---
History and Physical Update Update Date/Time: 10/11/20 06:52 History and Physical has been reviewed, including an updated exam of the patient. There are NO changes in the patient's condition. Risks, benefits, and alternatives have been discussed and questions answered. Patient agrees to proceed with procedure.
[2020-10-11 07:24] VITALS: BP 137/81; PULSE 83; RESP 14; TEMP 37; O2SAT 100
[2020-10-11] MEDS: LACTATED RINGERS 1,000 ML 30 ML IV CONT (07:36)
--- NOTE | 2020-10-11 07:43 | SUR.PREOP ---
updated daughter and pt on delay of procedure due to po intact at 3 am this morning.
--- NOTE | 2020-10-11 09:39 | WPDANESEPPF ---
Anes - Initial Pre Proc Eval Procedure: Operation Date: 10/11/20 08:30 Proposed Procedures p Cystoscopy, Antegrade Bilateral Stent Placement, Bilateral Retrograde Pyelograms - Shekhar Teran MD Date/Time: 10/11/20 09:39 Surgeon: Shekhar Teran MD Pre Op Diagnosis: Bilateral Hydronephrosis, Pelvic Mass Patient Data Age: 59 Gender: F Height: 5 ft 6.5 in Weight: 59.5 kg Last Vital Signs Temp 98.6 F 10/11/20 07:24 Pulse 83 10/11/20 07:24 Resp 14 10/11/20 07:24 BP 137/81 10/11/20 07:24 Pulse Ox 100 10/11/20 07:24 Allergies Allergy/AdvReac Type Severity Reaction Status Date / Time codeine Allergy Mild Nausea and Verified 10/11/20 07:13 Vomiting penicillin G Allergy Mild Nausea and Verified 10/11/20 07:13 Vomiting Sulfa (Sulfonamide Allergy Mild Nausea and Verified 10/11/20 07:13 Antibiotics) Vomiting hydrocodone AdvReac Intermediate Nausea and Verified 10/11/20 07:13 Vomiting tramadol AdvReac Intermediate Nausea and Verified 10/11/20 07:13 Vomiting Home Medications Medication Instructions Recorded Confirmed Type lorazepam 1 mg PO TID PRN 08/27/20 10/11/20 History morphine 15 mg PO Q6H PRN #20 tablet 09/03/20 10/11/20 Rx Patient hx anesthesia problems: none Family hx anesthesia problems: none PMFSH Past Medical History Medical History Anemia Anxiety Colon cancer Congestive heart failure EF 55-60% echo in 03/2020 Hypertension Moderate aortic regurgitation Normal colonoscopy Port-A-Cath in place Surgical History Surgical History Colostomy status Later taken down. H/O endoscopy H/O lymph node biopsy H/O: hysterectomy History of bone marrow biopsy History of colon resection Family History Family History Grandparent Cerebrovascular accident Pancreas cancer Lung cancer Mother Colon cancer Social History Social History Social History: the patient is . She has 5 children. The patient is now on disability. The patient is a full code. She does not have a durable power patent attorney for healthcare. She is a former smoker. The patient smoked marijuana in her younger days. The patient stated that she was given medical marijuana at 1 time but decided she did not like it. So she stop using marijuana altogether. No alcohol or illicit drug use. Smoking packs per day: 0.5 Smoking cigarettes per day: 10.0 Years smoked: 5 Smoking pack-years: 2.50 Smoking status: Former smoker Tobacco type: cigarettes Second hand tobacco smoke exposure: No Smoking end date: 05/02/87 Additional smoking assessment comments: STATES 1/2PK/DAY/5YRS - QUIT 35 YRS AGO Alcohol intake: never Substance use: never Substance use type: does not use Living arrangements: with family Gender identity (if verbalized by the patient): Female Spiritual care concerns: No Anes - Eval Final PreProcedure Day of Procedure 10/11/20 09:39 Patient weight: normal Heart: regular rate and rhythm Lungs: clear to auscultation Airway: Mallampati scale class III Neurological: alert and oriented Last oral intake: >/= 8 hours ASA classification: IV Emergent: no Anesthetic plan: delay (pt ate 0330 hours) Anesthesia type and monitoring: general ETT (RSI) and standard monitoring Informed Consent: The patient's anesthetic plan and its attendant risks and benefits were discussed with the patient/family/POA. Questions were solicited and answers provided to the satisfaction of the patient/family/POA.
[2020-10-11 10:41] VITALS: BP 161/89; PULSE 60; RESP 20; TEMP 36.8; O2SAT 98
[2020-10-11 10:55] VITALS: BP 169/92; PULSE 56; RESP 22; O2SAT 100
--- NOTE | 2020-10-11 10:59 | PM.PROC ---
Procedure Note - Detailed Date of procedure: 10/11/20 Pre-op diagnosis: Bilateral Hydronephrosis, Pelvic Mass Post-op diagnosis: same Procedure performed: 1. Cystoscopy with bilateral retrograde and antegrade pyelography. 2. Bilateral ureteroscopy with right ureteral biopsy. 3. Unsuccessful attempt at bilateral ureteral stent placement. Description of procedure: Patient is brought to the operative suite where she was prepped and draped in routine sterile fashion while in dorsal lithotomy position. 2% xylocaine jelly was introduced injury fluid systemic sedation is administered per the anesthesia department. Cystoscopy is undertaken with a 19F rigid cystoscope. There is no intravesical foreign body or neoplasm. She has a single orthotopic ureteral orifice bilaterally this has recent past, I attempted to pass guidewires any angiographic catheters through the strictured distal ureteral segments. As before, this was unsuccessful with marked obstruction of the distal ureters bilaterally. Retrograde pyelography showed no contrast going proximal to the strictured areas. I attempted to pass guidewires antegrade through her nephrostomy tubes. I was able to negotiate the wires into the proximal and mid ureter but again, met with marked resistance in the distal ureters bilaterally. I performed right ureteroscopy could identify neoplasm growing into the obstructed area of the right ureter. Biopsies were obtained at this site. On the left I could not get to appointments with identifiable neoplasm. Left-sided nephrostomy tubes in place and will await the results of biopsy. Anesthesia: GLMA Surgeon: Shekhar Teran MD Estimated blood loss (mL): 0 Drains: Yes (Bilateral percutaneous nephrostomy tubes) Packing: No Pathology: yes (Right ureteral biopsy) Complications: No immediate complications Condition: stable Disposition: PACU
[2020-10-11 11:10] VITALS: BP 170/85; PULSE 59; RESP 20; O2SAT 100
[2020-10-11 11:25] VITALS: BP 164/75; PULSE 56; RESP 16
[2020-10-11 11:55] VITALS: BP 160/74; PULSE 60; RESP 16
[2020-10-11] MEDS: HEPARIN SOD FLUSH 500 UNITS/5 ML SYRINGE IV PUSH (12:02)
== END 2020-10-11 12:20 | disposition home or self-care (01) ==
PROVIDERS: PCP Family Medicine Sports Medicine; Visit Provider Urology
PROC: (CPT 52352; principal; 2020-10-11 08:30)
DX: C66.1 Malignant neoplasm of right ureter (principal); N13.30 Unspecified hydronephrosis; I11.0 Hypertensive heart disease with heart failure; I50.9 Heart failure, unspecified; D50.9 Iron deficiency anemia, unspecified; I35.1 Nonrheumatic aortic (valve) insufficiency; F41.9 Anxiety disorder, unspecified; Z85.038 Personal history of other malignant neoplasm of large intestine; Z90.49 Acquired absence of other specified parts of digestive tract; Z98.0 Intestinal bypass and anastomosis status; Z87.891 Personal history of nicotine dependence
CPT/HCPCS: 52354; 74420; 88305; 93005; A9270; C1769; C1887; C9803; J2250; J2405; J2704; J3010; J7120; Q9966; U0003

== ENCOUNTER 2020-11-03 02:11 | Inpatient (IN) | payer MEDICARE, MEDICAID, SELFPAY ==
[2020-11-03] VITALS (7 sets, daily range): BP systolic 132–145; BP diastolic 70–91; PULSE 64–84; RESP 16–20; TEMP 36.1–37.1; O2SAT 100; BMI 21.9
--- NOTE | ~2020-11-03 | XR_ITS ---
EXAMINATION: XR abdomen NG/feed tube insert DATE: 11/03/2020 06:21 INDICATION: Nasogastric tube insertion TECHNIQUE: A supine view of the abdomen and lower chest was obtained for evaluation of feeding tube placement. COMPARISON: 11/03/2020 at 5:12 AM FINDINGS: Nasogastric tube has been repositioned with distal tip in proximal side port now in the body of the s tomach. Right-sided central venous port catheter with distal tip near the superior cavoatrial junctio n. Bilateral percutaneous nephrostomy tubes with loops formed over the expected location of the bilat eral renal diamante. Nonspecific bowel gas pattern with air-fluid levels within a loop of small bowel in the central abdom en. Visualized mid to lower lung zones are clear. Heart size is normal. IMPRESSION: 1. Nasogastric tube in the stomach. 2. Nonspecific bowel gas pattern. Reviewed, dictated and finalized at location A. SEALING FUEL TANK REPAIRER
--- NOTE | ~2020-11-03 | CT_ITS ---
EXAMINATION: CT abdomen pelvis wo con DATE: 11/03/2020 03:09 INDICATION: Abdominal pain TECHNIQUE: Computed tomography (CT) of the abdomen and pelvis was performed without intravenous contr ast. The dose-length product (DLP) was 230.05 mGy-cm. Automated exposure control and iterative recons truction technique were employed. COMPARISON: PET/CT, 09/20/2020 FINDINGS: Minimal dependent atelectasis is present in the lung bases. The heart size is normal. A 3.2 cm low-density mass of the left hepatic lobe has been previously characterized as a hemangioma. The spleen, pancreas, and adrenal glands are normal. Stones or sludge layer in the nondistended gallbladd er. There are bilateral percutaneous nephrostomy tubes. There is a 2.6 cm cyst in the left kidney. Th e right kidney is atrophic. Right common iliac and external iliac chain lymphadenopathy persists. Mul tiple peritoneal masses are again seen, the largest of which is in the right pelvis at the anterolate ral aspect of the rectum and is slightly increased in size measuring 5.5 cm, previously 5.2 cm. There is an approximately 3.1 x 2.2 cm area of asymmetric wall thickening in the sigmoid colon just beyond the anastomosis which demonstrated abnormal FDG uptake on recent PET/CT. There is a focally dilated loop of small bowel in the left upper quadrant. There is moderate lumbar spondylosis. IMPRESSION: 1. Focally dilated loop of small bowel in the left upper quadrant, consistent with ileus versus obstr uction. 2. Multiple peritoneal masses as well as pelvic lymphadenopathy, consistent with metastatic disease. 3. Asymmetric wall thickening in the sigmoid colon just distal to the anastomosis, consistent with me tastasis or primary malignancy. Reviewed, dictated and finalized at location A. ORMS LAMINATOR IMPRESSION: 1. Focally dilated loop of small bowel in the left upper quadrant, consistent w ith ileus versus obstruction. 2. Multiple peritoneal masses as well as pelvic lymphadenopathy, consistent wit h metastatic disease. 3. Asymmetric wall thickening in the sigmoid colon just distal to the anastomos is, consistent with metastasis or primary malignancy.
--- NOTE | ~2020-11-03 | XR_ITS ---
EXAMINATION: XR abdomen NG/feed tube insert DATE: 11/03/2020 05:10 INDICATION: Nasogastric tube insertion TECHNIQUE: A supine view of the abdomen and lower chest was obtained for evaluation of feeding tube placement. COMPARISON: CT dated 11/03/2020 FINDINGS: Nasogastric tube extends to the distal esophagus and coils back upon itself with the distal tip in th e midesophagus. Bilateral percutaneous nephrostomy tubes with loops formed over the expected location of the bilateral renal diamante. No dilated loops of gas-filled bowel to suggest obstruction. Lung bases are clear. Heart size is normal. IMPRESSION: 1. Nasogastric tube coiled back upon itself in the esophagus. Recommend withdrawal and advancement. Reviewed, dictated and finalized at location A. RAPHIC INFORMATION SCIENTIST IMPRESSION: 1. Nasogastric tube coiled back upon itself in the esophagus. Recommend withdra wal and advancement.
--- NOTE | ~2020-11-03 | XR_ITS ---
EXAMINATION: XR sm bowel follow through DATE: 11/03/2020 17:09 INDICATION: Small bowel obstruction TECHNIQUE: Tallow Maker radiograph(s) of the abdomen was/were obtained. Water-soluble contrast was administe red through the nasogastric tube and sequential radiographs of the abdomen were obtained until oral c ontrast was noted to be in the proximal colon. No fluoroscopic images are obtained. COMPARISON: CT from today FINDINGS: Tallow Maker radiograph demonstrates a nasogastric tube in expected position. There are bilateral percutaneous prostate. A moderate volume of colonic stool is present. Transit time from the stomach t o proximal colon was approximately two hours. There is a short segment of dilated proximal jejunum on radiographs up to the one hour time point. At the two hour time point, this segment of small bowel h as return to normal in caliber. IMPRESSION: 1. No persistent small bowel obstruction identified. Reviewed, dictated and finalized at location A. H SANDER
[2020-11-03] MEDS: ONDANSETRON INJ 4 MG/2 ML VIAL IV PUSH (02:55)
[2020-11-03] MEDS: SODIUM CHLORIDE 0.9% IV 1,000 ML 999 ML IV CONT (02:57)
[2020-11-03] MEDS: HYDROmorphone HCL INJ (*CRX) 1 MG/ML SYR IV PUSH ×2 (02:57→04:29)
[2020-11-03 03:11] LABS: Add Urine Microscopic? YES; Appearance Urine Cloudy (Clear); Bacteria Urine 1+ /hpf; Bilirubin Urine Negative (Negative); Blood Urine 2+ (Negative); Color Urine Yellow (Yellow); Glucose Urine UA Negative (Negative); Ketones Urine Negative (Negative); Leukocyte Esterase Ur 3+ LEU/UL (Negative); Mucus Urine Rare /lpf; Nitrate Urine Negative (Negative); Protein Urine 2+ mg/dL (Negative); RBC Urine 21-50 /hpf (0-2); Specific Grav Ur 1.012 (1.001-1.035); Squamous Epithelial Cell Urine Rare /hpf (Few); Urobilinogen Urine Negative mg/dL (<2.0); WBC Clumps Urine Present /HPF; WBC Urine >75 /hpf
[2020-11-03 03:12] LABS: Basophils Percent Auto 0.2 % (0.2-1.2); Eosinophils Absolute Auto 0.1 K/mm3 (0-0.3); Eosinophils Percent Auto 0.6 % (0-4.4); Hematocrit 23.8 % (37.0-47.0); Hemoglobin 7.8 g/dL (12.0-15.0); Immature Granulocyte Absolute 0.12 K/mm3 (0.00-0.031); Immature Granulocyte Percent A 1.2 % (0-0.5); Lymphocytes Absolute Auto 1.31 K/mm3 (0.9-3.2); Lymphocytes Percent Auto 13.3 % (18.3-44.2); Mean Corpuscular HGB Conc 32.8 g/dl (32-36); Mean Corpuscular Hemoglobin 28.7 pg (26-34); Mean Corpuscular Volume 87.5 fl (80-100); Mean Platelet Volume 8.9 fl (7.4-10.4); Monocytes Absolute Auto 0.7 K/mm3 (0.1-0.6); Monocytes Percent Auto 6.6 % (2.6-8.5); Neutrophils Absolute Auto 7.7 K/mm3 (1.3-6.7); Neutrophils Percent Auto 78.1 % (45.5-73.1); Platelet Count Result 390 k/mm3 (150-375); Red Blood Count 2.72 M/mm3 (4.2-5.4); Red Cell Distribution Width 17.2 % (11.5-14.5); White Blood Count 9.8 K/mm3 (4.5-10.0)
[2020-11-03 03:27] LABS: Lactic Acid Reflex 0.6 mmol/L (0.7-2.1); Prothrombin Time 13.6 Seconds (11.1-14.7)
[2020-11-03 03:28] LABS: Partial Thromboplastin Time 36.3 SECONDS (22.3-36.8)
--- NOTE | 2020-11-03 03:39 | ED.GENADULT ---
HPI - General Adult General Chief complaint: Abdominal Pain Stated complaint: abd pain, n/v Time Seen by Provider: 11/03/20 02:35 History of Present Illness HPI narrative: Patient is a 59-year-old female who presents the emergency department with chief complaint of abdominal pain. The patient reports that she has history of a mass in her pelvis and has developed bilateral hydronephrosis. Patient states that she has percutaneous nephrostomy tubes that have been draining urine. The patient states that her sites are feeling very sore but they have been hurting since she had the procedure back 13 October. This procedure was done by Dr. Kohli. Patient reports that she has diffuse abdominal pain that has not improved by anything and it is worsened by palpation. Patient denies diarrhea. Related Data Home Medications Medication Instructions Recorded Confirmed lorazepam 1 mg PO TID PRN 08/27/20 10/29/20 amlodipine 5 mg PO DAILY 11/03/20 famotidine 20 mg PO DAILY 11/03/20 metoclopramide HCl 10 mg PO DAILY 11/03/20 Allergies Allergy/AdvReac Type Severity Reaction Status Date / Time codeine Allergy Mild Nausea and Verified 10/11/20 07:13 Vomiting penicillin G Allergy Mild Nausea and Verified 10/11/20 07:13 Vomiting Sulfa (Sulfonamide Allergy Mild Nausea and Verified 10/11/20 07:13 Antibiotics) Vomiting hydrocodone AdvReac Intermediate Nausea and Verified 10/11/20 07:13 Vomiting tramadol AdvReac Intermediate Nausea and Verified 10/11/20 07:13 Vomiting Review of Systems Review of Systems: Narrative: A 10 system review of systems was completed on the patient and is negative except for what is stated in the HPI. Nursing and ancillary documentation was reviewed. [facility] Past Medical History Medical History Anemia Anxiety Colon cancer Congestive heart failure EF 55-60% echo in 03/2020 Hypertension Moderate aortic regurgitation Normal colonoscopy Port-A-Cath in place Surgical History Surgical History Colostomy status Later taken down. H/O endoscopy H/O lymph node biopsy H/O: hysterectomy History of bone marrow biopsy History of colon resection Family History Family History Grandparent Cerebrovascular accident Pancreas cancer Lung cancer Mother Colon cancer Social History Social History Social History: the patient is . She has 5 children. The patient is now on disability. The patient is a full code. She does not have a durable power privacy attorney for healthcare. She is a former smoker. The patient smoked marijuana in her younger days. The patient stated that she was given medical marijuana at 1 time but decided she did not like it. So she stop using marijuana altogether. No alcohol or illicit drug use. Smoking packs per day: 0.5 Smoking cigarettes per day: 10.0 Years smoked: 5 Smoking pack-years: 2.50 Smoking status: Never smoker Tobacco type: cigarettes Second hand tobacco smoke exposure: No Smoking end date: 05/02/87 Additional smoking assessment comments: STATES 1/2PK/DAY/5YRS - QUIT 35 YRS AGO Alcohol intake: never Substance use: never Substance use type: does not use Gender identity (if verbalized by the patient): Female Spiritual care concerns: No Exam Narrative: Exam Narrative: GENERAL: Well-appearing, well-nourished, and in no acute distress. HEAD: Normocephalic, atraumatic. EYES: PERRLA and EOMI. ENT: Nares clear, no rhinorrhea or epistaxis. Mucous membranes moist. NECK: Supple. CHEST: Clear to auscultation. No respiratory distress. HEART: Regular rate and rhythm. No murmur heard. Normal peripheral pulses. ABDOMEN: Soft, diffusely tender, nondistended, normal active bowel sounds. B
[2020-11-03 03:49] LABS: Alanine Aminotransferase 13 U/L (4-35); Alkaline Phosphatase 71 U/L (38-126); Anion Gap 5 mmol/L (8-16); Aspartate Amino Transferase 27 U/L (14-36); Bilirubin,Total 0.3 mg/dL (0.2-1.3); Blood Urea Nitrogen 31 mg/dL (7-17); Calcium 8.4 mg/dL (8.4-10.2); Carbon Dioxide 20 mmol/L (22-30); Chloride 113 mmol/L (98-107); Estimated Glomerular Filt Rate 25; Glucose 84 mg/dL (65-105); Lipase 1689 U/L (23-300); Potassium 3.5 mmol/L (3.4-5.0); Sodium 138 mmol/L (137-145)
[2020-11-03] MEDS: LIDOCAINE HCL 2% VISC SOLN 15 ML UDC ×2 (05:27→05:28)
[2020-11-03] MEDS: SODIUM CHLORIDE 0.9% IV 1,000 ML 125 ML IV CONT ×2 (05:28→16:13)
--- NOTE | 2020-11-03 07:08 | ADMGEN ---
This patient, Dina Smith, was admitted to Medical Room 348-01. Patient/family oriented to hospital policies and general routines including ID bracelet, bed and alarms, visiting hours, pain management, procedures, bathroom and other care routines, personal items, smoking policy, room service/diet, and visiting hours. Information on how to activate the Rapid Response Team has been discussed. Patient/Family are encouraged to report perceived risks to care and to ask questions if they do not understand what they are told or what they should do.
--- NOTE | 2020-11-03 12:56 | PM.IMHP ---
H&P: HPI History of Present Illness Date/Time: 11/03/20 12:56 Chief Complaint: Abdominal pain with vomiting Narrative: Date of admission 11/03/2020 0930 Dina Smith is a 59 year old female with known metastatic recurrent colon cancer who presented to the emergency room with diffuse abdominal pain and vomiting. CT scan looked to reveal small-bowel obstruction. NG was placed and she was admitted for evaluation. She relates her last bowel movement was a day prior and and has had no melena hematochezia. Has lost about 50 lb over the last year. Her original cancer was diagnosis and 2015 when she underwent colectomy with colostomy and receive adjuvant chemotherapy with FOLFOX. She subsequently had recurrence in 2018 and has what she describes as hyperthermic intra peritoneal chemotherapy. She relates in [place] she underwent an 8 hour surgery with debulking of tumor including TAHBSO. She did well post that surgery until August 2020 when she presented with flank pain and urinary tract infection and was found to have bilateral hydronephrosis. She underwent bilateral nephrostomy tube placement and biopsy lesion 10/11/2020 revealed recurrent colon cancer. Retrograde pyelogram revealed bilateral obstruction still at that time and Urology could not place a guidewire through the obstruction. She is currently undergoing immunotherapy with . No previous history of bowel obstruction Review of Systems Review of Systems: Narrative: Constitutional has had weight loss as stated with poor appetite but no fever chills Eye no double vision scotoma Mouth no pharyngitis laryngitis Pulmonary no shortness breath wheezing or cough CV no chest pain or palpitation, has been treated in the past occasionally for hypertension GI as per present illness no dysphagia Muscle skeletal no particular joint discomfort Integument no skin breakdown rashes Neuropsych no seizures no syncope [facility] Past Medical History Medical History (Updated 11/03/20 @ 13:10 by Luis Alfredo De La oRsa MD) Anemia Anxiety Colon cancer Congestive heart failure EF 55-60% echo in 03/2020 Hypertension Moderate aortic regurgitation Normal colonoscopy Port-A-Cath in place Surgical History Surgical History (Updated 11/03/20 @ 13:09 by Luis Alfredo De La Rosa MD) Colostomy status With colectomy Later taken down. 2015 H/O endoscopy H/O lymph node biopsy H/O: hysterectomy Part of debulking surgery for recurrent colon cancer and presumed hyperthermic intraperitoneal chemo perfusion in [place] in 2018 History of bone marrow biopsy Family History Family History Grandparent Cerebrovascular accident Pancreas cancer Lung cancer Mother Colon cancer Social History Social History Social History: the patient is . She has 5 children. The patient is now on disability. The patient is a full code. She does not have a durable power insurance defense attorney for healthcare. She is a former smoker. The patient smoked marijuana in her younger days. The patient stated that she was given medical marijuana at 1 time but decided she did not like it. So she stop using marijuana altogether. No alcohol or illicit drug use. Smoking packs per day: 0.5 Smoking cigarettes per day: 10.0 Years smoked: 5 Smoking pack-years: 2.50 Smoking status: Former smoker Tobacco type: cigarettes Second hand tobacco smoke exposure: No Smoking end date: 05/02/87 Additional smoking assessment comments: STATES 1/2PK/DAY/5YRS - QUIT 35 YRS AGO Alcohol intake: never Substance use: former Substance use type: marijuana Gender identity (if verbalized by the patient): Female Sexual Orientation (if Verbalized by the Patient): Straight or Heterosexual Spiritual care concerns: No Meds Home Medications and Allergies Home Medications Medication Instructions Recorded
--- NOTE | 2020-11-03 14:02 | PM.CNGS ---
Assessment and Plan Assessment and plan (1) Small bowel obstruction: Code(s): K56.609 - Unspecified intestinal obstruction, unspecified as to partial versus complete obstruction Status: Acute Assessment and Plan: Patient appears to have a small-bowel obstruction which is likely secondary to adhesions that could also be related to metastases. I have reviewed the CT and discussed the findings with the patient. With her extensive prior surgical history, any surgical exploration for release of small-bowel obstruction would be extremely high risk and would put patient in a position where she could have short bowel syndrome or other multiple complications postoperatively. She has stage IV colon cancer with signs of intra-abdominal recurrence. If immunotherapy is not showing any significant improvement, further surgery will certainly not improve her overall prognosis. I would like to get a small-bowel follow-through today to assess for improvement in obstruction. Will try to remove NG tube if obstruction has resolved. (2) Colon cancer: Qualifiers: Colon location: sigmoid Qualified Code(s): C18.7 - Malignant neoplasm of sigmoid colon Code(s): C18.9 - Malignant neoplasm of colon, unspecified Status: Acute History of Present Illness Consult details Consult date: 11/03/20 Reason for consult: other (small bowel obstruction) Requesting physician: Boby Penn MD Narrative: This is a 59-year-old woman who I am asked to see for a small-bowel obstruction. She presented to the emergency department overnight with abdominal pain that has been worsening over the past week. She states that her last bowel movement was probably a week ago. She did have 1 episode of vomiting and has had some nausea. She thought that she was may be constipated from having a ureteral procedure and being on pain meds after this. She has a very extensive prior abdominal surgical history. She has had 2 surgeries for colon cancer. Her 1st surgery was done at [facility] and she was given an ostomy at that time. She then had a debulking surgery for stage IV colon [facility]. She thinks that her last colonoscopy was in 2019. She has been dealing with hydronephrosis which was thought to be secondary to her malignancy. She seems to be somewhat confused on her current diagnosis and states that she has a mass but does not have cancer. She has been seen Dr. Arango and is currently being treated with immunotherapy. Her most recent PET scan shows increased uptake suggestive ongoing malignancy. CT in the emergency department showed evidence of a small-bowel obstruction. NG tube was placed and she states that since this was done she is feeling much better. She is passing some flatus but has not had a bowel movement yet. She was mostly complaining of mid abdominal pain, but now she states her pain is essentially gone and she just feels slightly sore. Review of Systems Review of Systems: All systems reviewed & are unremarkable except as noted in HPI and below Constitutional: Constitutional: Denies chills and Denies fever(s) Cardiovascular: Cardiovascular: Denies chest pain and Denies irregular heart rhythm Respiratory: Respiratory: Denies cough and Denies dyspnea Gastrointestinal: Gastrointestinal: Reports as per HPI Genitourinary: Genitourinary: Reports other (Bilateral nephrostomy tubes) [facility] Past Medical History Medical History Anemia Anxiety Colon cancer Congestive heart failure EF 55-60% echo in 03/2020 Hypertension Moderate aortic regurgitation Normal colonoscopy Port-A-Cath in place Surgical History Surgical History Colostomy status With colectomy Later taken down. 2015 H/O endoscopy H/O lymph node biopsy H/O: hysterectomy Part of debulking
[2020-11-03] MEDS: HYDROmorphone HCL INJ (*CRX) 1 MG/ML SYR 0.5 MG IV PUSH ×2 (16:20→23:43)
[2020-11-03] MEDS: SODIUM CHLORIDE 0.9% IV 1,000 ML 100 ML IV CONT (21:04)
[2020-11-03] MEDS: ENOXAPARIN 30 MG/0.3 ML SYRINGE SUB-Q (21:04)
[2020-11-04 03:45] VITALS: BP 134/81; PULSE 62; RESP 17; TEMP 36.2; O2SAT 100
[2020-11-04 04:47] LABS: Basophils Percent Auto 0.3 % (0.2-1.2); Eosinophils Absolute Auto 0.1 K/mm3 (0-0.3); Eosinophils Percent Auto 0.7 % (0-4.4); Hematocrit 22.6 % (37.0-47.0); Hemoglobin 7.2 g/dL (12.0-15.0); Immature Granulocyte Absolute 0.05 K/mm3 (0.00-0.031); Immature Granulocyte Percent A 0.6 % (0-0.5); Lymphocytes Absolute Auto 1.23 K/mm3 (0.9-3.2); Mean Corpuscular HGB Conc 31.9 g/dl (32-36); Mean Corpuscular Volume 87.9 fl (80-100); Mean Platelet Volume 8.5 fl (7.4-10.4); Monocytes Absolute Auto 0.6 K/mm3 (0.1-0.6); Monocytes Percent Auto 6.2 % (2.6-8.5); Neutrophils Absolute Auto 6.9 K/mm3 (1.3-6.7); Neutrophils Percent Auto 78.2 % (45.5-73.1); Platelet Count Result 352 k/mm3 (150-375); Red Blood Count 2.57 M/mm3 (4.2-5.4); White Blood Count 8.8 K/mm3 (4.5-10.0)
[2020-11-04 05:02] LABS: Anion Gap 8 mmol/L (8-16); Blood Urea Nitrogen 26 mg/dL (7-17); Calcium 8.3 mg/dL (8.4-10.2); Carbon Dioxide 19 mmol/L (22-30); Chloride 116 mmol/L (98-107); Estimated CRCL calculation 26 ml/min; Estimated Glomerular Filt Rate 31; Glucose 77 mg/dL (65-105); Lipase 708 U/L (23-300); Magnesium 1.6 mg/dL (1.6-2.3); Phosphorus 3.3 mg/dL (2.5-4.5); Potassium 3.7 mmol/L (3.4-5.0); Sodium 143 mmol/L (137-145)
[2020-11-04 08:00] VITALS: PULSE 62; RESP 17; O2SAT 100
--- NOTE | 2020-11-04 12:38 | PM.PNGS ---
Progress Note: A&P Assessment and Plan (1) Small bowel obstruction: Code(s): K56.609 - Unspecified intestinal obstruction, unspecified as to partial versus complete obstruction Status: Resolved Assessment and Plan: Advance diet as tolerated OK to discharge home Recommend keeping appointment with Dr. Arango tomorrow (2) Colon cancer: Qualifiers: Colon location: sigmoid Qualified Code(s): C18.7 - Malignant neoplasm of sigmoid colon Code(s): C18.9 - Malignant neoplasm of colon, unspecified Status: Acute Assessment and Plan: Appears to have recurrent intraabdominal metastatic colon cancer. Palliative treatment may give patient more time but not offer any chance of cure. Subjective Subjective Date/Time Seen: 11/04/20 12:38 Bowels moving and tolerating clear liquids. No nausea or bloating. Exam GI: Inspection: non-distended GI Palp: Yes Soft to palpation, No Tenderness to palpation present (GI) and No Guarding due to palpation present (GI) Auscultation: normal bowel sounds Objective Data Vital Signs Vital Signs: Vital Signs - 24 hr 11/03/20 14:00 11/03/20 20:29 11/04/20 03:45 Temperature 36.1 C L 36.6 C 36.2 C L Pulse Rate 64 72 62 Respiratory Rate 18 18 17 Blood Pressure 137/74 145/72 H 134/81 Pulse Oximetry 100 100 100 Intake/Output Intake/Output: Intake & Output 11/01/20 11/02/20 11/03/20 11/04/20 23:59 23:59 23:59 23:59 Intake Total 2240 1040 Output Total 1075 410 Balance 1165 630 Meds/Results Medications: Active Medications Generic Name Dose Route Start Last Admin Trade Name Freq PRN Reason Stop Dose Admin Enoxaparin Sodium 30 mg 11/03/20 21:00 11/03/20 21:04 Enoxaparin 30 Mg/0.3 Ml Syringe SUB-Q 30 mg HS BORIS Administration Hydromorphone HCl 0.5 mg 11/03/20 05:00 11/03/20 23:43 Hydromorphone Hcl Inj (*Crx) 1 Mg/Ml Syr IV PUSH 0.5 mg Q4H PRN Administration Pain Rated 7-10 Lorazepam 1 mg 11/04/20 02:17 Lorazepam (*Crx) 1 Mg Tablet PO TID PRN Anxiety Radiology Results: ITS Impressions Abdomen X-Ray 11/03/20 08:21 IMPRESSION: 1. Nasogastric tube in the stomach. 2. Nonspecific bowel gas pattern. Abdomen/Pelvis CT 11/03/20 14:41 IMPRESSION: 1. Focally dilated loop of small bowel in the left upper quadrant, consistent with ileus versus obstruction. 2. Multiple peritoneal masses as well as pelvic lymphadenopathy, consistent with metastatic disease. 3. Asymmetric wall thickening in the sigmoid colon just distal to the anastomosis, consistent with metastasis or primary malignancy. Small Bowel X-Ray 11/03/20 18:03 IMPRESSION: 1. No persistent small bowel obstruction identified. Labs Labs: Laboratory Results - last 24 hr 11/04/20 11/04/20 04:16 04:16 WBC 8.8 RBC 2.57 L Hgb 7.2 L Hct 22.6 L MCV 87.9 MCH 28.0 MCHC 31.9 L RDW 18.0 H Plt Count 352 MPV 8.5 Immature Gran % (Auto) 0.6 H Neut % (Auto) 78.2 H Lymph % (Auto) 14.0 L Meade % (Auto) 6.2 Eos % (Auto) 0.7 Baso % (Auto) 0.3 Lymph # (Auto) 1.23 Meade # (Auto) 0.6 Eos # (Auto) 0.1 Baso # (Auto) 0.0 Abs Immat Gran (auto) 0.05 H Absolute Neuts (auto) 6.9 H Absolute Nucleated RBC 0.0 Nucleated RBC % 0.0 Sodium 143 Potassium 3.7 Chloride 116 H Carbon Dioxide 19 L Anion Gap 8 BUN 26 H Creatinine 2.00 H Estim Creat Clear Calc 26 Estimated GFR 31 L Glucose 77 Calcium 8.3 L Phosphorus 3.3 Magnesium 1.6 Lipase 708 H
[2020-11-04] MEDS: SALINE LOCK FLUSH 10 ML IV PUSH (14:53)
[2020-11-04] MEDS: HEPARIN SOD FLUSH 500 UNITS/5 ML SYRINGE IV PUSH (14:53)
--- NOTE | 2020-11-04 18:18 | PM.DS ---
DS: Admitting Diagnosis Admitting Diagnosis Admitting Diagnosis: Nausea and vomiting and possible small-bowel obstruction DS: Discharge Diagnosis Discharge Diagnosis (1) Small bowel obstruction: Code(s): K56.609 - Unspecified intestinal obstruction, unspecified as to partial versus complete obstruction Status: Resolved Assessment and Plan: By CT scan, partial or even ileus. Initially treated with NG suction with relief of symptomatology. X-ray with small-bowel follow-through performed on 11/03/2020 with no evidence of obstruction. Diet was advanced and she tolerated well with having bowel movements after the contrast. Discharge home to follow-up with her oncologist 11/05/2020 (2) Colon cancer: Qualifiers: Colon location: sigmoid Qualified Code(s): C18.7 - Malignant neoplasm of sigmoid colon Code(s): C18.9 - Malignant neoplasm of colon, unspecified Status: Acute Assessment and Plan: Currently undergoing immunotherapy with oncology will continue CT revealed multiple peritoneal metastasis and pelvic adenopathy (3) Anemia due to stage 3b chronic kidney disease: Code(s): N18.32 - Chronic kidney disease, stage 3b; D63.1 - Anemia in chronic kidney disease Status: Acute Assessment and Plan: Hemoglobin stable 7.2 at discharge (4) Chronic renal failure, stage 3b: Code(s): N18.32 - Chronic kidney disease, stage 3b Status: Chronic Assessment and Plan: Creatinine unchanged had been higher in the past and with IV hydration creatinine dropped to 2.0 at discharge. Culture of nephrostomy drainage grew both Pseudomonas and Enterococcus. She is afebrile with a normal white cell count and these were thought to be colonized organisms. No treatment rendered for fear of selecting resistant organisms. (5) Hypertension: Code(s): I10 - Essential (primary) hypertension Status: Acute Assessment and Plan: Pressure adequate at this time ,weight loss probably has improved her pressure, no medication required DS: Summary Hospital Course Hospital Course: Date of discharge and date encounter 11/04/20 59-year-old female with known metastatic colon cancer admitted with abdominal pain and vomiting. CT scan revealed some dilated loops of small bowel compatible with ileus versus small-bowel obstruction. NG was placed with immediate relief and the following morning small-bowel follow-through barium study revealed no obstruction. Diet was advanced which she tolerated well without nausea or abdominal pain and was having bowel movements. Creatinine after hydration is 2.0. She is to follow-up with Dr Arango 11/05/2020 Time Spent with Patient Time attestation: Total time spent providing and/or coordinating discharge services: 35 minutes DS: Data Data Completed and Pending Labs on day of discharge: Labs from last 24 hours 11/04/20 11/04/20 04:16 04:16 WBC 8.8 RBC 2.57 L Hgb 7.2 L Hct 22.6 L MCV 87.9 MCH 28.0 MCHC 31.9 L RDW 18.0 H Plt Count 352 MPV 8.5 Immature Gran % (Auto) 0.6 H Neut % (Auto) 78.2 H Lymph % (Auto) 14.0 L Rabun % (Auto) 6.2 Eos % (Auto) 0.7 Baso % (Auto) 0.3 Lymph # (Auto) 1.23 Rabun # (Auto) 0.6 Eos # (Auto) 0.1 Baso # (Auto) 0.0 Abs Immat Gran (auto) 0.05 H Absolute Neuts (auto) 6.9 H Absolute Nucleated RBC 0.0 Nucleated RBC % 0.0 Sodium 143 Potassium 3.7 Chloride 116 H Carbon Dioxide 19 L Anion Gap 8 BUN 26 H Creatinine 2.00 H Estim Creat Clear Calc 26 Estimated GFR 31 L Glucose 77 Calcium 8.3 L Phosphorus 3.3 Magnesium 1.6 Lipase 708 H Preliminary micro results at discharge 11/03/20 02:52 Urine Culture - Preliminary Urine Clean Catch Pseudomonas aeruginosa Enterococcus species Discharge Plan Discharge Attending physician on discharge: Luis Alfredo De La Rosa Discharging Clinician: Luis Alfredo De La Rosa Patient Dispo
== END 2020-11-04 15:21 | disposition home or self-care (01) | DRG 389 ==
LOC: ANHED 04:36 → ANH3MED 11-04 12:59
PROVIDERS: Admitting Provider Family Medicine; Emergency Provider Emergency Medicine; PCP Family Medicine Sports Medicine; Visit Provider Internal Medicine
DX: K56.690 Other partial intestinal obstruction (principal); C18.9 Malignant neoplasm of colon, unspecified; C78.6 Secondary malignant neoplasm of retroperitoneum and peritoneum; I13.0 Hypertensive heart and chronic kidney disease with heart failure and stage 1 through stage 4 chronic kidney disease, or unspecified chronic kidney disease; N13.39 Other hydronephrosis; Z16.21 Resistance to vancomycin; K56.7 Ileus, unspecified; N18.32 Chronic kidney disease, stage 3b; I50.9 Heart failure, unspecified; B96.5 Pseudomonas (aeruginosa) (mallei) (pseudomallei) as the cause of diseases classified elsewhere; B95.2 Enterococcus as the cause of diseases classified elsewhere; D63.1 Anemia in chronic kidney disease; Z90.710 Acquired absence of both cervix and uterus; Z87.891 Personal history of nicotine dependence
CPT/HCPCS: 36415; 74176; 74250; 80048; 80053; 81001; 83605; 83690; 83735; 84100; 85025; 85610; 85730; 87077; 87086; 87088; 87186; 96374; 96375; 96376; 99285; J1170; J1650; J2405; J7030

== ENCOUNTER 2020-11-06 02:05 | Observation (INO) | payer MEDICARE, MEDICAID, SELFPAY ==
[2020-11-06] VITALS (9 sets, daily range): BP systolic 116–148; BP diastolic 68–94; PULSE 63–83; RESP 14–17; TEMP 36.5–37.7; O2SAT 98–100; BMI 21.0
--- NOTE | ~2020-11-06 | XR_ITS ---
EXAMINATION: 1. XR nephrostomy tube change 2. XR nephrostomy tube change DATE: 11/06/2020 15:51 INDICATION: Bilateral hydronephrosis. TECHNIQUE: The flanks were prepped and draped in sterile fashion. Subcutaneous lidocaine was used. Th e existing right nephrostomy tube was cut and injected with Omnipaque 240. The nephrostomy tube was r emoved over a Bentson wire under fluoroscopic guidance. A new 8.5 Martiniquais nephrostomy tube was then ad vanced into the right kidney under fluoroscopic guidance. The catheter was stitched to the skin and a sterile dressing was applied. The existing left nephrostomy tube was cut and injected with Omnipaque 240. The nephrostomy tube was removed over a Bentson wire under fluoroscopic guidance. A new 8.5 Martiniquais nephrostomy tube was then a dvanced into the left kidney under fluoroscopic guidance. The catheter was stitched to the skin and a sterile dressing was applied. The fluoroscopy exposure time was 2.1 minutes. The total number of bridget ges was 11. COMPARISON: CT abdomen and pelvis 11/06/2020 FINDINGS: Images demonstrate new bilateral nephrostomy tubes in expected positions. IMPRESSION: 1. Fluoroscopy guided left nephrostomy tube exchange. 2. Fluoroscopy guided right nephrostomy tube exchange. Reviewed, dictated and finalized at location A. LATHE OPERATOR IMPRESSION: 1. Fluoroscopy guided left nephrostomy tube exchange. 2. Fluoroscopy guided right nephrostomy tube exchange.
--- NOTE | ~2020-11-06 | CT_ITS ---
EXAMINATION: CT abdomen pelvis wo con DATE: 11/06/2020 02:43 INDICATION: Left lower quadrant pain. TECHNIQUE: Computed tomography (CT) of the abdomen and pelvis was performed without intravenous contr ast. The dose-length product was 277.90 mGy-cm. Automated exposure control and iterative reconstructi on technique were employed. COMPARISON: CT dated 11/03/2020. FINDINGS: Increasing distention of proximal small bowel containing fluid and debris, consistent with obstruction. There is residual barium in the colon. There are bilateral percutaneous nephrostomy cath eters. There are multiple peritoneal masses redemonstrated without significant change consistent with metastatic disease. There is right common and external iliac lymphadenopathy. There is thickening of the distal sigmoid colon/rectum. Left renal cyst unchanged. IMPRESSION: 1. Increasing dilation of small bowel centered in the left upper abdomen consistent with small bowel obstruction. No definite transition site identified. 2: Peritoneal masses and pelvic lymphadenopathy, consistent with metastatic disease. 3: Irregular wall thickening of the sigmoid colon/rectum, suspicious for malignancy. Reviewed, dictated and finalized at location A. DDLE BUG IMPRESSION: 1. Increasing dilation of small bowel centered in the left upper abdomen consis tent with small bowel obstruction. No definite transition site identified. 2: Peritoneal masses and pelvic lymphadenopathy, consistent with metastatic dis ease. 3: Irregular wall thickening of the sigmoid colon/rectum, suspicious for malign estefania.
--- NOTE | 2020-11-06 02:32 | ED.ABDPAIN ---
HPI - Abdominal Pain General Chief Complaint: Abdominal Pain Stated Complaint: muscle spasms Time Seen by Provider: 11/06/20 02:20 Source: patient Mode of arrival: ambulatory Limitations: no limitations History of Present Illness HPI narrative: Patient 59-year-old female complaining of left lower quadrant pain, intermittent, 10 out of 10 when it occurs currently the pain is 5 out of 10, accompanied by nausea vomiting, started last night. Patient states that she was recently discharged 2 days ago from this hospital after being admitted for the same complaint. Patient states she has a history of colon CA and currently receiving immunotherapy for it. Patient denies any chest pain, shortness of breath, diarrhea, GI bleeding, fever, chills or urinary symptoms. Related Data Home Medications Medication Instructions Recorded Confirmed lorazepam 1 mg PO TID PRN 08/27/20 11/03/20 Allergies Allergy/AdvReac Type Severity Reaction Status Date / Time codeine Allergy Mild Nausea and Verified 11/03/20 07:05 Vomiting penicillin G Allergy Mild Nausea and Verified 11/03/20 07:05 Vomiting Sulfa (Sulfonamide Allergy Mild Nausea and Verified 11/03/20 07:05 Antibiotics) Vomiting hydrocodone AdvReac Intermediate Nausea and Verified 11/03/20 07:05 Vomiting tramadol AdvReac Intermediate Nausea and Verified 11/03/20 07:05 Vomiting Review of Systems Review of Systems: All systems reviewed & are unremarkable except as noted in HPI and below Constitutional: Constitutional: Denies body ache(s), Denies chills, Denies excessive sweating, Denies fatigue, Denies fever(s), Denies headache(s), Denies lethargy, Denies malaise, Denies weakness and Denies weight loss Eyes: Eyes: Denies blurry vision, Denies change in vision and Denies loss of vision ENT: Denies dizziness, Denies ear discharge, Denies headache(s), Denies lip swelling, Denies epistaxis, Denies nasal congestion, Denies neck pain, Denies throat swelling and Denies tongue swelling Cardiovascular: Cardiovascular: Denies chest pain, Denies chest pain at rest, Denies chest pain with activity, Denies diaphoresis, Denies rapid heart rate, Denies edema, Denies irregular heart rhythm, Denies lightheadedness, Denies palpitations, Denies dyspnea and Denies dyspnea on exertion Respiratory: Respiratory: Denies chest congestion, Denies cough, Denies hemoptysis, Denies dyspnea and Denies dyspnea on exertion Gastrointestinal: Gastrointestinal: Denies melena, Denies hematochezia, Denies diarrhea and Denies hematemesis Musculoskeletal: Musculoskeletal: Denies abnormal gait, Denies deformity, Denies joint swelling, Denies limited range of motion, Denies neck pain and Denies numbness Neurologic: Denies Abnormal speech present, Denies abnormal gait, Denies confusion, Denies dizziness, Denies headache(s), Denies focal weakness, Denies loss of vision, Denies numbness, Denies Other visual disturbances, Denies Sensory deficit (Neuro) and Denies weakness Psychiatric: Psychiatric: Denies confusion, Denies depression, Denies auditory hallucinations, Denies homicidal ideation and Denies suicidal ideation Endocrine: Endocrine: Denies cold intolerance, Denies excessive sweating, Denies fatigue, Denies heat intolerance and Denies palpitations Hematologic/Lymphatic: Hematologic/Lymphatic: Denies easy bleeding and Denies easy bruising Allergic/Immunologic: Allergic/Immunologic: Denies lip swelling, Denies throat swelling and Denies tongue swelling [facility] Past Medical History Medical History Anemia Anxiety Colon cancer Congestive heart failure EF 55-60% echo in 03/2020 Hypertension Moderate aortic regurgitation Normal colonoscopy Port-A-Cath in place Surgical History Surgical History Colostomy status With colectomy Later taken down. 2015 H/O endoscopy H/O lymph node biopsy H/O: hyster
[2020-11-06] MEDS: LACTATED RINGERS 1,000 ML 999 ML IV CONT (02:43)
[2020-11-06] MEDS: MORPHINE SULFATE (*CRX) 2 MG/ML INJ IV PUSH ×2 (02:44→04:29)
[2020-11-06] MEDS: PROMETHAZINE HCL 25 MG/ML AMPUL 12.5 MG IV PUSH (02:45)
[2020-11-06 03:01] LABS: Basophils Percent Auto 0.4 % (0.2-1.2); Eosinophils Absolute Auto 0.1 K/mm3 (0-0.3); Eosinophils Percent Auto 0.8 % (0-4.4); Hematocrit 22.9 % (37.0-47.0); Hemoglobin 7.5 g/dL (12.0-15.0); Immature Granulocyte Absolute 0.04 K/mm3 (0.00-0.031); Immature Granulocyte Percent A 0.5 % (0-0.5); Lymphocytes Absolute Auto 1.07 K/mm3 (0.9-3.2); Lymphocytes Percent Auto 12.9 % (18.3-44.2); Mean Corpuscular HGB Conc 32.8 g/dl (32-36); Mean Corpuscular Hemoglobin 28.3 pg (26-34); Mean Corpuscular Volume 86.4 fl (80-100); Mean Platelet Volume 8.9 fl (7.4-10.4); Monocytes Absolute Auto 0.5 K/mm3 (0.1-0.6); Monocytes Percent Auto 6.5 % (2.6-8.5); Neutrophils Absolute Auto 6.5 K/mm3 (1.3-6.7); Neutrophils Percent Auto 78.9 % (45.5-73.1); Platelet Count Result 355 k/mm3 (150-375); Red Blood Count 2.65 M/mm3 (4.2-5.4); Red Cell Distribution Width 18.1 % (11.5-14.5); White Blood Count 8.3 K/mm3 (4.5-10.0)
[2020-11-06 03:20] LABS: Alanine Aminotransferase 11 U/L (4-35); Albumin Level 2.9 g/dL (3.5-5.1); Alkaline Phosphatase 68 U/L (38-126); Anion Gap 7 mmol/L (8-16); Aspartate Amino Transferase 21 U/L (14-36); Bilirubin,Total 0.2 mg/dL (0.2-1.3); Blood Urea Nitrogen 23 mg/dL (7-17); Calcium 8.3 mg/dL (8.4-10.2); Carbon Dioxide 20 mmol/L (22-30); Chloride 112 mmol/L (98-107); Estimated CRCL calculation 24 ml/min; Estimated Glomerular Filt Rate 28; Glucose 106 mg/dL (65-105); Lipase 1978 U/L (23-300); Potassium 3.5 mmol/L (3.4-5.0); Sodium 139 mmol/L (137-145)
--- NOTE | 2020-11-06 05:30 | ADMGEN ---
This patient, Dina Smith, was admitted to [facility] Surg Room 305-01. Patient/family oriented to hospital policies and general routines including ID bracelet, bed and alarms, visiting hours, pain management, procedures, bathroom and other care routines, personal items, smoking policy, room service/diet, and visiting hours. Information on how to activate the Rapid Response Team has been discussed. Patient/Family are encouraged to report perceived risks to care and to ask questions if they do not understand what they are told or what they should do.
[2020-11-06 06:59] LABS: Add Urine Microscopic? YES; Appearance Urine Cloudy (Clear); Bacteria Urine 4+ /hpf; Bilirubin Urine Negative (Negative); Blood Urine 2+ (Negative); Color Urine Yellow (Yellow); Glucose Urine UA Negative (Negative); Ketones Urine Negative (Negative); Leukocyte Esterase Ur 3+ LEU/UL (Negative); Mucus Urine Rare /lpf; Nitrate Urine Negative (Negative); Protein Urine 2+ mg/dL (Negative); Urobilinogen Urine Negative mg/dL (<2.0); WBC Urine >75 /hpf
[2020-11-06] MEDS: LACTATED RINGERS 1,000 ML 75 ML IV CONT (09:29)
[2020-11-06] MEDS: LINEZOLID 600 MG/300 ML 600 MG/300 ML SOLN 300 MG IVPB ×2 (09:37→20:29)
--- NOTE | 2020-11-06 10:58 | PM.IMHP ---
H&P: HPI History of Present Illness Date/Time: 11/06/20 10:58 Chief Complaint: Abdominal pain Narrative: Dina Smith is a 59 year old female with known metastatic recurrent colon cancer seen by Dr. Arango Onc, nephrostomy tubes bilaterally followed by Dr. Teran, who presented to the ER with LLQ abdominal pain and vomiting. Her original cancer was diagnosis and 2015 when she underwent colectomy with colostomy and receive adjuvant chemotherapy with FOLFOX. She subsequently had recurrence in 2018 and has what she describes as hyperthermic intra peritoneal chemotherapy. She relates in [place] she underwent an 8 hour surgery with debulking of tumor including TAHBSO. She did well post that surgery until August 2020 when she presented with flank pain and urinary tract infection and was found to have bilateral hydronephrosis. She underwent bilateral nephrostomy tube placement and biopsy lesion 10/11/2020 revealed recurrent colon cancer. Retrograde pyelogram revealed bilateral obstruction still at that time and Urology could not place a guidewire through the obstruction. She is currently undergoing immunotherapy with . The patient was in the hospital on 11/03/2020 with similar symptoms and was diagnosed with a small-bowel obstruction and had an NG tube placed with improvement of her symptoms the next day after having a small-bowel follow-through. She was discharged on 11/04/2020 and was feeling well. On 11/05/2020 she developed intermittent left lower quadrant pain about every 5 minutes and then it became worse prior to arrival. She had associated nausea, vomiting. She did have some relief with passing gas. She denies any other fevers, chills, chest pain, shortness of breath, cough, leg swelling, calf pain, headache, vision changes, weakness, hematochezia, or any other symptoms at this time. The patient denies any urinary symptoms because she has bilateral nephrostomy tubes. How Review of Systems Review of Systems: All systems reviewed & are unremarkable except as noted in HPI and below PMFSH Past Medical History Medical History Anemia Anxiety Colon cancer Congestive heart failure EF 55-60% echo in 03/2020 Hypertension Moderate aortic regurgitation Normal colonoscopy Port-A-Cath in place Surgical History Surgical History Colostomy status With colectomy Later taken down. 2015 H/O endoscopy H/O lymph node biopsy H/O: hysterectomy Part of debulking surgery for recurrent colon cancer and presumed hyperthermic intraperitoneal chemo perfusion in [place] in 2018 History of bone marrow biopsy Family History Family History Grandparent Cerebrovascular accident Pancreas cancer Lung cancer Mother Colon cancer Social History Social History Social History: the patient is . She has 5 children. The patient is now on disability. The patient is a full code. She does not have a durable power mergers and acquisitions attorney for healthcare. She is a former smoker. The patient smoked marijuana in her younger days. The patient stated that she was given medical marijuana at 1 time but decided she did not like it. So she stop using marijuana altogether. No alcohol or illicit drug use. Smoking packs per day: 0.5 Smoking cigarettes per day: 10.0 Years smoked: 5 Smoking pack-years: 2.50 Smoking status: Former smoker Tobacco type: cigarettes Second hand tobacco smoke exposure: No Smoking end date: 05/02/87 Additional smoking assessment comments: STATES 1/2PK/DAY/5YRS - QUIT 35 YRS AGO Alcohol intake: former Substance use: former Substance use type: marijuana Gender identity (if verbalized by the patient): Female Spiritual care concerns: No Meds Home Medications and Allergies H
[2020-11-06] MEDS: MORPHINE SULFATE (*CRX) 4 MG/ML INJ IV PUSH ×2 (14:29→21:58)
[2020-11-06] MEDS: CENTRAL LINE FLUSH 10 ML IV PUSH ×2 (17:22→20:30)
[2020-11-07] VITALS (9 sets, daily range): BP systolic 105–139; BP diastolic 58–77; PULSE 67–73; RESP 16–20; TEMP 36.8–37.7; O2SAT 100
[2020-11-07] MEDS: LACTATED RINGERS 1,000 ML 75 ML IV CONT ×3 (04:58→23:11)
[2020-11-07 05:10] LABS: Basophils Percent Auto 0.3 % (0.2-1.2); Eosinophils Absolute Auto 0.1 K/mm3 (0-0.3); Immature Granulocyte Absolute 0.04 K/mm3 (0.00-0.031); Immature Granulocyte Percent A 0.6 % (0-0.5); Lymphocytes Absolute Auto 0.83 K/mm3 (0.9-3.2); Lymphocytes Percent Auto 12.3 % (18.3-44.2); Mean Corpuscular HGB Conc 32.2 g/dl (32-36); Mean Corpuscular Hemoglobin 28.6 pg (26-34); Mean Corpuscular Volume 88.7 fl (80-100); Mean Platelet Volume 8.6 fl (7.4-10.4); Monocytes Absolute Auto 0.5 K/mm3 (0.1-0.6); Monocytes Percent Auto 6.8 % (2.6-8.5); Neutrophils Absolute Auto 5.4 K/mm3 (1.3-6.7); Platelet Count Result 229 k/mm3 (150-375); Red Blood Count 2.31 M/mm3 (4.2-5.4); Red Cell Distribution Width 18.1 % (11.5-14.5); White Blood Count 6.8 K/mm3 (4.5-10.0)
[2020-11-07 05:24] LABS: Hematocrit 20.5 % (37.0-47.0); Hemoglobin 6.6 g/dL (12.0-15.0)
[2020-11-07 05:25] LABS: Anion Gap 3 mmol/L (8-16); Blood Urea Nitrogen 18 mg/dL (7-17); Calcium 7.8 mg/dL (8.4-10.2); Carbon Dioxide 23 mmol/L (22-30); Chloride 109 mmol/L (98-107); Estimated CRCL calculation 26 ml/min; Estimated Glomerular Filt Rate 31; Glucose 69 mg/dL (65-105); Lipase 308 U/L (23-300); Magnesium 1.1 mg/dL (1.6-2.3); Potassium 3.6 mmol/L (3.4-5.0); Sodium 135 mmol/L (137-145)
[2020-11-07] MEDS: CENTRAL LINE FLUSH 10 ML IV PUSH ×3 (06:15→21:48)
[2020-11-07] MEDS: SODIUM CHLORIDE 0.9% IV 250 ML 30 ML IV CONT (10:24)
--- NOTE | 2020-11-07 13:19 | WPDINFPN2 ---
Progress Note: A&P Assessment and Plan (1) Bacteriuria, asymptomatic: Code(s): R82.71 - Bacteriuria Status: Acute Assessment and Plan: 1. ASB 2. Recent funguria, also without infection 3. Metastatic colon cancer 4. SBO REC No antimicrobial therapy, N tubes just replaced and functioning well, she also voids regularly with no voiding symptoms. Call if other Qs, thanks Subjective Date/time seen: 11/07/20 13:19 Objective Data Vital Signs Vital Signs: Vital Signs - 24 hr 11/06/20 14:00 11/06/20 16:30 11/06/20 22:00 Temperature 36.7 C 37.7 C H Pulse Rate 77 83 Respiratory Rate 16 16 Blood Pressure 116/74 116/81 Pulse Oximetry 100 99 100 11/07/20 06:00 11/07/20 08:00 11/07/20 10:10 Temperature 37.5 C 37.4 C Pulse Rate 73 70 70 Respiratory Rate 18 20 20 Blood Pressure 124/76 117/77 Pulse Oximetry 100 100 100 11/07/20 10:27 11/07/20 11:27 11/07/20 12:27 Temperature 37.5 C 36.9 C 37.7 C H Pulse Rate 69 67 72 Respiratory Rate 18 16 16 Blood Pressure 113/69 139/72 114/75 Pulse Oximetry 100 100 100 Intake/Output Intake/Output: Intake & Output 11/04/20 11/05/20 11/06/20 11/07/20 23:59 23:59 23:59 23:59 Intake Total 2020 1320 Output Total 750 775 Balance 1270 545 Meds/Results Medications: Active Medications Generic Name Dose Route Start Last Admin Trade Name Freq PRN Reason Stop Dose Admin Heparin Sodium (Beef Lung) 50 units 11/06/20 09:00 11/06/20 09:32 Heparin Flush 50 Units/5 Ml Syringe IV PUSH 50 units QAM BORIS Administration Heparin Sodium (Beef Lung) 50 units 11/06/20 07:31 Heparin Flush 50 Units/5 Ml Syringe IV PUSH PRN PRN after intermittent infusion Heparin Sodium (Beef Lung) 50 units 11/06/20 07:31 Heparin Flush 50 Units/5 Ml Syringe IV PUSH PRN PRN after blood draws Heparin Sodium (Porcine) 500 units 11/06/20 07:31 Heparin Sod Flush 500 Units/5 Ml Syringe IV PUSH PRN PRN see comments below Lactated Ringer's 1,000 mls @ 75 mls/hr 11/06/20 08:30 11/07/20 04:58 Lr - Lactated Ringers Iv IV CONT 75 mls/hr .[id number] BORIS Administration Sodium Chloride 250 mls @ 30 mls/hr 11/07/20 05:42 Normal Saline Iv IV CONT 11/07/20 14:01 .[id number] STA Morphine Sulfate 4 mg 11/06/20 03:58 11/06/20 21:58 Morphine Sulfate (*Crx) 4 Mg/Ml Inj IV PUSH 4 mg Q4-6H PRN Administration Pain Rated 7-10 Ondansetron HCl 4 mg 11/06/20 03:58 Ondansetron Inj 4 Mg/2 Ml Vial IV PUSH Q4H PRN Nausea Sodium Chloride 10 ml 11/06/20 14:00 11/07/20 06:15 Central Line Flush IV PUSH 10 ml Q8HR BORIS Administration Radiology Results: ITS Impressions Abdomen/Pelvis CT 11/06/20 07:16 IMPRESSION: 1. Increasing dilation of small bowel centered in the left upper abdomen consistent with small bowel obstruction. No definite transition site identified. 2: Peritoneal masses and pelvic lymphadenopathy, consistent with metastatic disease. 3: Irregular wall thickening of the sigmoid colon/rectum, suspicious for malignancy. Nephrostomy Tube Change 11/06/20 16:29 IMPRESSION: 1. Fluoroscopy guided left nephrostomy tube exchange. 2. Fluoroscopy guided right nephrostomy tube exchange. Nephrostomy Tube Change 11/06/20 16:29 IMPRESSION: 1. Fluoroscopy guided left nephrostomy tube exchange. 2. Fluoroscopy guided right nephrostomy tube exchange. Labs Labs: Laboratory Results - last 24 hr 11/07/20 11/07/20 11/07/20 04:57 04:57 06:28 WBC 6.8 RBC 2.31 L Hgb 6.6 L* Hct 20.5 L* MCV 88.7 MCH 28.6 MCHC 32.2 RDW 18.1 H Plt Count 229 MPV 8.6 Immature Gran % (Auto) 0.6 H Neut % (Auto) 79.0 H Lymph % (Auto) 12.3 L Weston % (Auto) 6.8 Eos % (Auto) 1.0 Baso % (Auto) 0.3 Lymph # (Auto) 0.83 L Weston # (Auto) 0.5 Eos # (Auto) 0.1 Baso # (Auto) 0.0 Abs Immat Gran (auto) 0.04 H Absolute Neuts (auto) 5.4
[2020-11-07] MEDS: MORPHINE SULFATE (*CRX) 4 MG/ML INJ IV PUSH ×2 (13:20→21:38)
[2020-11-07] MEDS: MAGNESIUM SULFATE 3GM/D5W100ML 3 GM/100 ML BAG IVPB (13:28)
--- NOTE | 2020-11-07 14:37 | PM.IMPN ---
Progress Note: A&P Assessment and Plan (1) Small bowel obstruction: Code(s): K56.609 - Unspecified intestinal obstruction, unspecified as to partial versus complete obstruction Status: Resolved Assessment and Plan: Patient presented with nausea, vomiting, left lower quadrant abdominal pain and found to have dilation of small bowel centered in the left upper abdomen consistent with an obstruction, with no definite transition site identified. During her last admission surgery was consulted and stated she was not a surgical candidate and after having a small-bowel follow-through her symptoms resolved on its own and she was able to advance her diet as tolerated. Currently she is asymptomatic without any abdominal pain or vomiting. Surgery was consulted again for further evaluation and there is nothing for them to do at this time since she is asymptomatic Will advance diet to clear liquids and advanced as tolerated Continue monitoring abdominal symptoms and medications as needed like. (2) UTI (urinary tract infection): Qualifiers: Hematuria presence: with hematuria Urinary tract infection type: acute cystitis Qualified Code(s): N30.01 - Acute cystitis with hematuria Code(s): N39.0 - Urinary tract infection, site not specified Status: Acute Assessment and Plan: Urinalysis from 11/03/2020 showed growth of Pseudomonas which is pansensitive and vancomycin-resistant Enterococcus faecium with sensitives to Linezolid. She was not treated with any antibiotics on admission or discharge. She was started on linezolid and Levaquin for UTI I called Urology, Dr. Teran, who recommended changing out her nephrostomy tubes while she is here by interventional radiology. Her nephrostomy tubes were changed on 11/06/2020 and she tolerated the procedure well. Due To the patient's history of bilateral nephrostomy tubes I will consult infectious disease for further recommendations on antibiotics Dr. Canseco infectious Disease evaluated the patient and does not feel she needs any antibiotics at this time. IV linezolid and Levaquin have been discontinued. Continue monitoring vitals and leukocytosis, which have otherwise been normal. (3) Acute pancreatitis: Qualifiers: Acute pancreatitis complication: unspecified Pancreatitis type: unspecified pancreatitis type Qualified Code(s): K85.90 - Acute pancreatitis without necrosis or infection, unspecified Code(s): K85.90 - Acute pancreatitis without necrosis or infection, unspecified Status: Acute Assessment and Plan: The patient had elevated lipase on arrival which could be secondary to vomiting. The patient's CT scan of her abdomen did not show any inflammation of her pancreas to suggest pancreatitis. Lipase this morning was almost back to normal at 308. Advanced diet as tolerated. (4) Colon cancer: Qualifiers: Colon location: sigmoid Qualified Code(s): C18.7 - Malignant neoplasm of sigmoid colon Code(s): C18.9 - Malignant neoplasm of colon, unspecified Status: Acute Assessment and Plan: History of recurrent colon cancer being seen by Dr. Arango in receiving immunotherapy as an outpatient. Dr. Arango evaluate the patient today and recommend her following up as an outpatient on Thursday for her next infusion. (5) Anemia due to stage 3b chronic kidney disease: Code(s): N18.32 - Chronic kidney disease, stage 3b; D63.1 - Anemia in chronic kidney disease Status: Acute Assessment and Plan: Patient's anemia appears to be in the range of 9-7. This morning the patient was severely anemic at 6.6 which could be a lab draw a your but she was given 1 unit of PRBCs with improvement of her hemoglobin to 8.8.
[2020-11-07 14:57] LABS: Hematocrit 26.2 % (37.0-47.0); Hemoglobin 8.8 g/dL (12.0-15.0)
[2020-11-07 15:08] LABS: Magnesium 2.5 mg/dL (1.6-2.3)
--- NOTE | 2020-11-07 17:57 | PDONCCN ---
HPI - Date of Consult Date/Time: 11/07/20 17:57 Requesting Physician: Yadi Bennett PA-C Primary Care Provider: Dilshad Denney, - Consult Narrative Reason for consult: Metastatic colon cancer Narrative: Dina Smith is a 59 year old female with history of metastatic colon cancer initially diagnosed early stage cancer in 2016. Subsequent she does have metastatic involvement of uterus and liver in 2018. She also has multifactorial anemia with anemia of chronic kidney disease and iron deficiency. Currently she is on palliative treatment with Vectibix. She so far has received 2 treatment. Patient now came into the hospital with complaint of left lower quadrant abdominal pain along with nausea and vomiting. She has a history of nephrostomy tube placed due to bilateral ureteral obstruction from extrinsic compression of the tumor. Patient was admitted to hospital on November 03 with similar symptoms and diagnosed to have small bowel obstruction and NG tube was placed with improvement of her symptom. She does of intermittent left lower quadrant pain on this time associated with nausea vomiting. She is. Feeling better and start eating better. She is passing gas without any bowel movement yet. Labs showed hemoglobin of 6.6. She is currently receive blood transfusion. Review of Systems - Review of Systems All systems reviewed & are unremarkable except as noted in HPI and bel - Neurologic Denies abnormal speech, Denies abnormal gait, Denies confusion, Denies headache(s), Denies focal weakness, Denies loss of vision, Denies numbness, Denies other visual disturbances, Denies sensory deficit, Denies weakness PMFSH Medical History: Medical History (Last Updated 11/06/20 @ 14:59 by Yadi Bennett PA-C) Anemia Anxiety CKD (chronic kidney disease) Colon cancer Congestive heart failure EF 55-60% echo in 03/2020 Hypertension Moderate aortic regurgitation Normal colonoscopy Port-A-Cath in place Surgical History: Surgical History (Last Updated 11/06/20 @ 14:47 by Yadi Bennett PA-C) Colostomy status With colectomy Later taken down. 2015 H/O endoscopy H/O lymph node biopsy H/O: hysterectomy Part of debulking surgery for recurrent colon cancer and presumed hyperthermic intraperitoneal chemo perfusion in [place] in 2018 History of bone marrow biopsy Hx of nephrostomy Bilat Family History: Family History (Last Reviewed 01/05/21 @ 14:33 by Yadi Bennett PA-C) Grandparent Cerebrovascular accident Pancreas cancer Lung cancer Mother Colon cancer - Social History Social History: Social History (Last Reviewed 11/06/20 @ 14:33 by Yadi Bennett PA-C) Gender Identity: Gender identity (if verbalized by the patient): Female Alcohol Use: Alcohol intake: former Substance Use: Substance use: former Substance use type: marijuana Others: Spiritual care concerns: No Smoking Status: Smoking status: Former smoker Tobacco type: cigarettes Second hand tobacco smoke exposure: No Smoking end date: 05/02/87 Smoking Pack-years: Smoking packs per day: 0.5 Smoking cigarettes per day: 10.0 Years smoked: 5 Smoking pack-years: 2.50 Comments: Additional smoking assessment comments: STATES 1/2PK/DAY/5YRS - QUIT 35 YRS AGO Meds Home Medications Medication Instructions Recorded Confirmed Type lorazepam 1 mg PO TID PRN 08/27/20 11/06/20 History morphine 15 mg PO Q6H PRN #20 tablet 09/03/20 11/06/20 Rx Allergies Allergy/AdvReac Type Severity Reaction Status Date / Time codeine Allergy Mild Nausea and Verified 11/06/20 05:44 Vomiting penicillin G Allergy Mild Nausea and Verified 11/06/20 05:44 Vomiting Sulfa (Sulfonamide Allergy Mild Nausea and Verified 11/06/20 05:44 Antibiotics) Vomiting hydrocodone AdvReac Intermediate Nausea and Verified 11/06/20 05:44 Vomiting tramadol AdvReac Int
[2020-11-08] MEDS: MORPHINE SULFATE (*CRX) 4 MG/ML INJ IV PUSH ×3 (02:30→12:03)
[2020-11-08 06:00] VITALS: BP 126/80; PULSE 72; RESP 16; TEMP 37; O2SAT 100
[2020-11-08 06:46] LABS: Hematocrit 22.7 % (37.0-47.0); Hemoglobin 7.4 g/dL (12.0-15.0)
[2020-11-08 06:51] LABS: Anion Gap 4 mmol/L (8-16); Blood Urea Nitrogen 17 mg/dL (7-17); Calcium 7.8 mg/dL (8.4-10.2); Carbon Dioxide 23 mmol/L (22-30); Chloride 108 mmol/L (98-107); Estimated CRCL calculation 25 ml/min; Estimated Glomerular Filt Rate 29; Glucose 66 mg/dL (65-105); Magnesium 1.8 mg/dL (1.6-2.3); Potassium 3.9 mmol/L (3.4-5.0); Sodium 135 mmol/L (137-145)
[2020-11-08 08:00] VITALS: PULSE 72; RESP 16; O2SAT 100
[2020-11-08] MEDS: LACTATED RINGERS 1,000 ML 75 ML IV CONT (12:02)
--- NOTE | 2020-11-08 12:33 | PM.DS ---
DS: Admitting Diagnosis Admitting Diagnosis Admitting Diagnosis: Abd pain DS: Discharge Diagnosis Discharge Diagnosis (1) Small bowel obstruction: Code(s): K56.609 - Unspecified intestinal obstruction, unspecified as to partial versus complete obstruction Status: Resolved Assessment and Plan: Patient presented with nausea, vomiting, left lower quadrant abdominal pain and found to have dilation of small bowel centered in the left upper abdomen consistent with an obstruction, with no definite transition site identified. During her last admission surgery was consulted and stated she was not a surgical candidate and after having a small-bowel follow-through her symptoms resolved on its own and she was able to advance her diet as tolerated. Currently she is asymptomatic without any abdominal pain or vomiting. Surgery was consulted again for further evaluation and there is nothing for them to do at this time since she is asymptomatic She is now on a regular diet without any complaints at this time. Explained to the patient she needs to stay on stool softeners and stay hydrated trying prevent further bowel obstructions in the future. Patient understands and agrees with the plan all questions answered. (2) UTI (urinary tract infection): Qualifiers: Hematuria presence: with hematuria Urinary tract infection type: acute cystitis Qualified Code(s): N30.01 - Acute cystitis with hematuria Code(s): N39.0 - Urinary tract infection, site not specified Status: Acute Assessment and Plan: Urinalysis from 11/03/2020 showed growth of Pseudomonas which is pansensitive and vancomycin-resistant Enterococcus faecium with sensitives to Linezolid. She was not treated with any antibiotics on admission or discharge. She was started on linezolid and Levaquin for UTI I called Urology, Dr. Teran, who recommended changing out her nephrostomy tubes while she is here by interventional radiology. Her nephrostomy tubes were changed on 11/06/2020 and she tolerated the procedure well. Due To the patient's history of bilateral nephrostomy tubes I will consult infectious disease for further recommendations on antibiotics Dr. Canseco infectious Disease evaluated the patient and does not feel she needs any antibiotics at this time. IV linezolid and Levaquin have been discontinued. The patient will be discharged home without any antibiotics since infectious disease believes it was a contamination. This time is showing Gram-negative bacilli and will continue monitoring it is growth. But currently the patient is afebrile, non tachycardic, no leukocytosis, making good urine, well-hydrated and otherwise has no signs and symptoms of an underlying infection. (3) Acute pancreatitis: Qualifiers: Acute pancreatitis complication: unspecified Pancreatitis type: unspecified pancreatitis type Qualified Code(s): K85.90 - Acute pancreatitis without necrosis or infection, unspecified Code(s): K85.90 - Acute pancreatitis without necrosis or infection, unspecified Status: Acute Assessment and Plan: The patient had elevated lipase on arrival which could be secondary to vomiting. The patient's CT scan of her abdomen did not show any inflammation of her pancreas to suggest pancreatitis. Lipase this morning was normal. (4) Colon cancer: Qualifiers: Colon location: sigmoid Qualified Code(s): C18.7 - Malignant neoplasm of sigmoid colon Code(s): C18.9 - Malignant neoplasm of colon, unspecified Status: Acute Assessment and Plan: History of recurrent colon cancer being seen by Dr. Arango in receiving immunotherapy as an outpatient. Dr. Arango evaluate the patient and recommends her following up as an outpatient on Thursday for her next infusion. _
[2020-11-08 14:00] VITALS: BP 107/60; PULSE 66; RESP 14; TEMP 36.6; O2SAT 100
--- NOTE | 2020-11-08 16:01 | PC.NURSE ---
Martinaessed port. applied pressure with gauze and covered with Tegaderm.Pt tolerated well.
--- NOTE | 2020-11-09 17:27 | CONS_ITS ---
DATE OF CONSULTATION: 11/07/2020 REASON FOR CONSULTATION: Abnormal urine culture. HISTORY OF PRESENT ILLNESS: The patient is a 59-year-old female, who was found to have colon cancer in 2016 with a partial colectomy and adjuvant chemotherapy. She had recurrence in 2017 with intraperitoneal chemotherapy along with tumor debulking. In August of last year, she was found to have bilateral hydronephrosis and had placement of nephrostomy tubes bilaterally. These were replaced yesterday on schedule and by patient report and her medical record, they have been functioning very well. She does continue to void. She denies any voiding symptoms. Her nephrostomy tubes typically clear out little on the right and more abundantly on the left. There has been no gross hematuria, flank pain recently, nor fever, chills, or sweats. She is admitted to the hospital on November 03, small bowel obstruction. Discharged the following day, but returned here once again early yesterday with recurrent abdominal pain and has been treated accordingly for SBO. Urine culture from her prior admission abnormal and consultation requested. She has been on no antimicrobials recently, but was started on levofloxacin and linezolid yesterday. ALLERGIES: PENICILLIN AND SULFA, OTHERS NOT PERTINENT. HABITS: Ex-smoker. No alcohol. No illicit drugs. PRESENT MEDICATIONS: List reviewed. No immunosuppressants ongoing. PAST MEDICAL HISTORY: Port-A-Cath in place, which is used regularly for infusions. Blood draws transfusions. She has the port access currently and is getting blood. Otherwise, anxiety, previous heart failure, hypertension, colostomy takedown, hysterectomy, and bone marrow biopsy results not available. FAMILY HISTORY: Stroke, cancer. SOCIAL HISTORY: She has 5 children. . Lives locally. Does not work outside the home. REVIEW OF SYSTEMS: 14-point review otherwise negative other than weight loss. PHYSICAL EXAMINATION: GENERAL: This is a middle-aged female, who appears her actual age. No acute distress. VITAL SIGNS: T-max 37.7, 114/75, 72, 16, 100% saturation. SKIN: Warm and dry. No rashes. No ulcerations. EENT: Pupils equal, round, and reactive to light. The oropharynx, oral mucosa normal. NECK: No masses, thyromegaly, meningismus. CHEST: Port-A-Cath accessed right upper chest. No skin breakdown, hematoma, fluctuance. LUNGS: Clear to auscultation and percussion. BACK: She has no tenderness. Nephrostomy tubes in place. No hemorrhage. No abnormal contour 2 on the right. Minimal dark urine. Tube on the left with clear yellow urine. No sediment. CARDIAC: Regular rate and rhythm. No murmur, gallop, or rub. ABDOMEN: Soft, nontender, nondistended. No masses. EXTREMITIES: Without clubbing, cyanosis, edema. LABORATORY DATA: White count has been consistently normal. Urine culture 09/17, Linette albicans. Urine culture November 03 with Pseudomonas and VRE. Blood cultures not done. Last admission has been repeated yesterday, no growth after short incubation. Repeat urine culture also in process. Hemoglobin is 6.6, now being transfuse platelets are 229. Hemoglobin yesterday was 7.5. She has mild hyponatremia. BUN 18, creatinine 2.0 was 2.2 yesterday and lipase is 308. Urinalysis multiple abnormalities, which are reviewed. Her coronavirus assay 10/08/2020 was nonreactive. RADIOLOGY: Abdomen and pelvic CT showed bowel obstruction in the left upper abdomen and metastatic disease in the peritoneum and pelvic lymph nodes. ASSESSMENT: 1. Asymptomatic bacteriuria, specimen apparently collected clean-voided specimen, as she still does void possibly from the right kidney. No infection is present. 2. Fever 37.7, perhaps due to her bowel obstruction. 3. M
--- NOTE | 2020-11-15 14:05 | PC.NURSE ---
Spoke with patient. She states she is Doing pretty good . Instructed patient to contact her PCP or return to ED if starts to feel ill. Patient states understanding and agreement. Pt does have F/U scheduled with PCP.
== END 2020-11-08 15:30 | disposition home or self-care (01) ==
LOC: ANHED 04:03 → ANH3MEDSUR 07:01
PROVIDERS: Admitting Provider Family Medicine; Emergency Provider Emergency Medicine; PCP Family Medicine Sports Medicine; Visit Provider Physician Assistant
DX: K56.609 Unspecified intestinal obstruction, unspecified as to partial versus complete obstruction (principal); N39.0 Urinary tract infection, site not specified; K85.90 Acute pancreatitis without necrosis or infection, unspecified; C18.9 Malignant neoplasm of colon, unspecified; D63.1 Anemia in chronic kidney disease; I13.0 Hypertensive heart and chronic kidney disease with heart failure and stage 1 through stage 4 chronic kidney disease, or unspecified chronic kidney disease; N18.32 Chronic kidney disease, stage 3b; R82.71 Bacteriuria; R50.9 Fever, unspecified; R10.32 Left lower quadrant pain; R11.2 Nausea with vomiting, unspecified; F41.9 Anxiety disorder, unspecified; I35.1 Nonrheumatic aortic (valve) insufficiency; R19.09 Other intra-abdominal and pelvic swelling, mass and lump; R59.0 Localized enlarged lymph nodes; R93.3 Abnormal findings on diagnostic imaging of other parts of digestive tract; N13.30 Unspecified hydronephrosis; Z93.6 Other artificial openings of urinary tract status; Z90.49 Acquired absence of other specified parts of digestive tract; Z87.891 Personal history of nicotine dependence; Z79.899 Other long term (current) drug therapy; Z95.828 Presence of other vascular implants and grafts
CPT/HCPCS: 36415; 36430; 50435; 74176; 80048; 80053; 81001; 83605; 83690; 83735; 85014; 85018; 85025; 86850; 86900; 86901; 86922; 87040; 87077; 87086; 87088; 87186; 96361; 96365; 96366; 96367; 96375; 96376; 99285; G0378; J1642; J1956; J2020; J2270; J2550; J3475; J7050; J7120; P9016

== ENCOUNTER 2020-11-28 08:21 | Outpatient (CLI) | payer MEDICARE, MEDICAID, SELFPAY ==
--- NOTE | ~2020-11-28 | XR_ITS ---
EXAMINATION: XR nephrostomy tube change DATE: 11/28/2020 11:01 INDICATION: Bilateral hydronephrosis. TECHNIQUE: The existing bilateral nephrostomy tubes were injected with Omnipaque 240 under fluoroscop y. The procedure including the risks, benefits, and alternatives was discussed with the patient. Risk s discussed included bleeding and infection. The patient understood the risks and benefits and agreed to proceed. 1 g Ancef IV was given. The skin overlying the left flank was prepped and draped in usu al sterile fashion. Anesthetic was administered with 1% lidocaine subcutaneously. The left nephrosto my tube was cut and replaced over a wire with a 25 cm 8.5 Salvadorean pigtail catheter. The catheter was s titched to the skin, and a sterile dressing was applied. There were no immediate complications. The f luoroscopy exposure time was 1.2 minutes. The total number of images was 9. FINDINGS: The right nephrostomy tube is in expected position. A new drainage bag was attached. The left nephrostomy tube is pulled into a calyx, and there is leakage of urine around the catheter. The final images demonstrate a new left nephrostomy tube with loop in the renal pelvis. IMPRESSION: 1. Normal right nephrostomy tube. 2. Fluoroscopy guided left nephrostomy tube exchange. Reviewed, dictated and finalized at location A. CH BREAKER
--- NOTE | ~2020-11-28 | XR_ITS ---
EXAMINATION: XR nephrostogram DATE: 11/28/2020 11:01 INDICATION: Bilateral hydronephrosis. TECHNIQUE: The existing bilateral nephrostomy tubes were injected with Omnipaque 240 under fluoroscop y. The procedure including the risks, benefits, and alternatives was discussed with the patient. Risk s discussed included bleeding and infection. The patient understood the risks and benefits and agreed to proceed. 1 g Ancef IV was given. The skin overlying the left flank was prepped and draped in usua l sterile fashion. Anesthetic was administered with 1% lidocaine subcutaneously. The left nephrostomy tube was cut and replaced over a wire with a 25 cm 8.5 Norwegian pigtail catheter. The catheter was sti tched to the skin, and a sterile dressing was applied. There were no immediate complications. The flu oroscopy exposure time was 1.2 minutes. The total number of images was 9. FINDINGS: The right nephrostomy tube is in expected position. A new drainage bag was attached. The left nephrostomy tube is pulled into a calyx, and there is leakage of urine around the catheter. The final images demonstrate a new left nephrostomy tube with loop in the renal pelvis. IMPRESSION: 1. Normal right nephrostomy tube. 2. Fluoroscopy guided left nephrostomy tube exchange. Reviewed, dictated and finalized at location A. ER OUT
[2020-11-28 10:50] VITALS: BP 131/86; PULSE 76; RESP 20; O2SAT 100
[2020-11-28 11:05] VITALS: BP 147/85; PULSE 77; RESP 16; O2SAT 100
[2020-11-28 11:20] VITALS: BP 143/89; PULSE 77; RESP 16; O2SAT 100
[2020-11-28 11:35] VITALS: BP 151/103; PULSE 79; RESP 16; O2SAT 100
[2020-11-28 11:50] VITALS: BP 144/90; PULSE 69; RESP 16; O2SAT 100
== END 2020-11-28 12:38 | disposition home or self-care (01) ==
PROVIDERS: Radiology Diagnostic Radiology; PCP Family Medicine Sports Medicine; Visit Provider Urology
DX: N13.30 Unspecified hydronephrosis (principal); Z93.6 Other artificial openings of urinary tract status
CPT/HCPCS: 50431; 50435; C1769; J0690; Q9966

== ENCOUNTER 2020-12-21 06:42 | Inpatient (IN) | payer MEDICARE, MEDICAID, SELFPAY ==
[2020-12-21] VITALS (7 sets, daily range): BP systolic 117–150; BP diastolic 74–90; PULSE 65–96; RESP 13–21; TEMP 36.1–36.3; O2SAT 100; BMI 19.8
--- NOTE | ~2020-12-21 | XR_ITS ---
EXAMINATION: XR abdomen obstructive series DATE: 12/23/2020 06:04 INDICATION: Small bowel obstruction TECHNIQUE: Upright and supine views of the abdomen were obtained. COMPARISON: 12/21/2020 FINDINGS: The nasogastric tube is in the stomach. There is no free intraperitoneal gas. Mildly dilate d small bowel loops are seen in the left abdomen. There is a moderate volume of colonic stool. Bilate ral percutaneous nephrostomy tubes are noted. There is a partially imaged right-sided chemotherapy po rt. Cardiomegaly is noted. IMPRESSION: 1. Persistent mildly dilated small bowel, likely obstruction. Reviewed, dictated and finalized at location A. ORMANCE REPORTER
--- NOTE | ~2020-12-21 | CT_ITS ---
EXAMINATION: CT abdomen pelvis w con INDICATION: Upper abdominal pain TECHNIQUE: Computed tomographic images of the abdomen and pelvis were obtained after the administrati on of 100 cc of Omnipaque 350 intravenous contrast. The dose-length product (DLP) was 176.26 mGy-cm. Automated exposure control and iterative reconstruction technique were employed. COMPARISON: 11/06/2020, 09/20/2020, 09/12/2019 FINDINGS: Minimal dependent atelectasis is present in the lung bases. The heart size is normal. There is a 3.6 cm hypoattenuating lesion of the left hepatic lobe, stable since the most recent comparison . 1.4 cm hypoattenuating lesion is present in the liver dome. The spleen, pancreas, and adrenal gland s are normal. The gallbladder is mildly distended. There are bilateral percutaneous nephrostomy tubes . There is atrophy of the right kidney compared to the left. A 2.6 cm cyst is present in the left kid mehdi. There is right pelvic lymphadenopathy with a 4.4 cm metastasis is noted in the right pelvis. Mul tiple peritoneal metastases are again noted and not significantly changed. There appears to be an charli roximately 3.5 x 2.3 cm mass of the sigmoid colon just beyond the surgical anastomosis. There are mul tiple mildly dilated fluid-filled loops of small bowel. There appears to be a relative transition poi nt in the left mid abdomen. No free intraperitoneal gas is identified. A small volume of ascites is n oted. There is moderate lumbar spondylosis. IMPRESSION: 1. Mildly dilated fluid-filled loops of small bowel, consistent with small bowel obstruction. 2. Mass of the sigmoid colon just beyond the anastomosis, consistent with malignancy. 3. Pelvic lymphadenopathy and multiple peritoneal masses, consistent with metastatic disease. Reviewed, dictated and finalized at location A. ITUDINAL FLOAT OPERATOR IMPRESSION: 1. Mildly dilated fluid-filled loops of small bowel, consistent with small jose l obstruction. 2. Mass of the sigmoid colon just beyond the anastomosis, consistent with malig kary. 3. Pelvic lymphadenopathy and multiple peritoneal masses, consistent with metas tatic disease.
--- NOTE | ~2020-12-21 | XR_ITS ---
EXAMINATION: XR abdomen obstructive series DATE: 12/24/2020 05:43 INDICATION: Small bowel obstruction TECHNIQUE: Frontal supine and upright views of the abdomen were obtained. COMPARISON: 12/23/2020 FINDINGS: Nasogastric tube tip near the gastric antrum with proximal side-port in the body of the stomach. Righ t internal jugular central venous port catheter with distal tip near the superior cavoatrial junction . Bilateral percutaneous nephrostomy tubes with loops formed over the expected locations of the bilat eral renal pelvises sees. There is some gas scattered throughout nondilated loops of large and small bowel. No free intraperitoneal gas. Mild left basilar opacities which could represent atelectasis a nd/or pneumonia. Mild cardiomegaly. IMPRESSION: 1. Nonspecific bowel gas pattern with no frankly dilated loops of bowel suggesting improving obstruc tion or ileus. Reviewed, dictated and finalized at location A. OR BOAT PILOT IMPRESSION: 1. Nonspecific bowel gas pattern with no frankly dilated loops of bowel sugges ting improving obstruction or ileus.
--- NOTE | ~2020-12-21 | XR_ITS ---
EXAMINATION: XR abdomen NG/feed tube insert INDICATION: Nasogastric tube placement TECHNIQUE: Portable AP KUB-NG at 0949 hours COMPARISON: CT from today FINDINGS: The tip of the nasogastric tube is in the stomach. The proximal side port is in the distal esophagus. Tube can be safely advanced 3-5 cm. There are mildly dilated loops of small bowel in the a bdomen. Nephrostomy tubes are noted. The visualized lung bases are clear. Cardiomegaly is noted. IMPRESSION: 1. Tip of the nasogastric tube in the stomach with proximal side port in the distal esophagus. Tube c an be safely advanced 3 to 5 cm. 2. Mildly dilated small bowel, consistent with obstruction. Reviewed, dictated and finalized at location A. DE GAME TECHNICIAN IMPRESSION: 1. Tip of the nasogastric tube in the stomach with proximal side port in the di stal esophagus. Tube can be safely advanced 3 to 5 cm. 2. Mildly dilated small bowel, consistent with obstruction.
--- NOTE | 2020-12-21 07:18 | ED.ABDPAIN ---
HPI - Abdominal Pain General Chief Complaint: Abdominal Pain Stated Complaint: ABD pain Time Seen by Provider: 12/21/20 06:55 Source: patient Mode of arrival: ambulatory Limitations: no limitations History of Present Illness HPI narrative: A 60-year-old female comes into the emergency department today with complaints of abdominal pain. She states that it feels like a cramping sensation going from the bilateral flanks towards the center of her abdomen. She denies any nausea, vomiting changes in bowel or bladder habits. Patient is not very good at describing symptoms and just states that it feels blah . Related Data Home Medications Medication Instructions Recorded Confirmed Eliquis 5 mg BYMOUTH BID 12/10/20 12/21/20 furosemide 20 mg BYMOUTH DAILY 12/10/20 12/21/20 Allergies Allergy/AdvReac Type Severity Reaction Status Date / Time hydrocodone AdvReac Intermediate Nausea and Verified 12/21/20 13:26 Vomiting tramadol AdvReac Intermediate Nausea and Verified 12/21/20 13:26 Vomiting codeine AdvReac Mild Nausea and Verified 12/21/20 13:26 Vomiting penicillin G AdvReac Mild Nausea and Verified 12/21/20 13:26 Vomiting Sulfa (Sulfonamide AdvReac Mild Nausea and Verified 12/21/20 13:26 Antibiotics) Vomiting potassium AdvReac Swelling Verified 12/21/20 13:26 of Lip/Tongue/Throat Review of Systems Review of Systems: Narrative: CONSTITUTIONAL: Denies fever, chills, or sweats. EYES: Denies visual changes, redness, or discharge. ENT: Denies rhinorrhea, congestion, sore throat, or otalgia. CARDIOVASCULAR: Denies chest pain, palpitations, or edema. RESPIRATORY: Denies cough or dyspnea. GASTROINTESTINAL: Denies nausea, vomiting, or diarrhea. Endorses abdominal pain GENITOURINARY: Denies dysuria or hematuria. SKIN: Denies rash or itching. MUSCULOSKELETAL: Denies back pain, joint pain, or myalgia. NEUROLOGIC: Denies headache, numbness, dizziness, or weakness. PSYCHIATRIC: Denies anxiety or depression. [facility], [facility] Past Medical History Medical History Anemia Anxiety CKD (chronic kidney disease) Colon cancer Congestive heart failure EF 55-60% echo in 03/2020 Hypertension Moderate aortic regurgitation Normal colonoscopy Port-A-Cath in place Surgical History Surgical History Colostomy status With colectomy Later taken down. 2015 H/O endoscopy H/O lymph node biopsy H/O: hysterectomy Part of debulking surgery for recurrent colon cancer and presumed hyperthermic intraperitoneal chemo perfusion in [place] in 2018 History of bone marrow biopsy Hx of nephrostomy Bilat Family History Family History Grandparent Cerebrovascular accident Pancreas cancer Lung cancer Mother Colon cancer Social History Social History Social History: the patient is . She has 5 children. The patient is now on disability. The patient is a full code. She does not have a durable power business attorney for healthcare. She is a former smoker. The patient smoked marijuana in her younger days. The patient stated that she was given medical marijuana at 1 time but decided she did not like it. So she stop using marijuana altogether. No alcohol or illicit drug use. Smoking packs per day: 0.5 Smoking cigarettes per day: 10.0 Years smoked: 5 Smoking pack-years: 2.50 Smoking status: Former smoker Tobacco type: cigarettes Second hand tobacco smoke exposure: No Smoking end date: 05/02/87 Additional smoking assessment comments: STATES 1/2PK/DAY/5YRS - QUIT 35 YRS AGO Alcohol intake: never Substance use: never Substance use type: marijuana Gender identity (if verbalized by the patient): Female Sexual Orientation (if Verbalized by the Patient): Straight or Heterosexual Spiritual care concerns:
[2020-12-21 07:37] LABS: Basophils Percent Auto 0.2 % (0.2-1.2); Eosinophils Percent Auto 0.1 % (0-4.4); Hematocrit 27.8 % (37.0-47.0); Hemoglobin 9.2 g/dL (12.0-15.0); Immature Granulocyte Absolute 0.05 K/mm3 (0.00-0.031); Immature Granulocyte Percent A 0.6 % (0-0.5); Lymphocytes Absolute Auto 1.39 K/mm3 (0.9-3.2); Lymphocytes Percent Auto 15.9 % (18.3-44.2); Mean Corpuscular HGB Conc 33.1 g/dl (32-36); Mean Corpuscular Volume 87.7 fl (80-100); Mean Platelet Volume 8.8 fl (7.4-10.4); Monocytes Absolute Auto 0.6 K/mm3 (0.1-0.6); Monocytes Percent Auto 7.3 % (2.6-8.5); Neutrophils Absolute Auto 6.7 K/mm3 (1.3-6.7); Neutrophils Percent Auto 75.9 % (45.5-73.1); Platelet Count Result 303 k/mm3 (150-375); Red Blood Count 3.17 M/mm3 (4.2-5.4); Red Cell Distribution Width 17.6 % (11.5-14.5); White Blood Count 8.8 K/mm3 (4.5-10.0)
[2020-12-21 07:49] LABS: Alanine Aminotransferase 15 U/L (4-35); Albumin Level 3.3 g/dL (3.5-5.1); Alkaline Phosphatase 77 U/L (38-126); Anion Gap 8 mmol/L (8-16); Aspartate Amino Transferase 30 U/L (14-36); Bilirubin,Total 0.5 mg/dL (0.2-1.3); Blood Urea Nitrogen 39 mg/dL (7-17); Calcium 7.4 mg/dL (8.4-10.2); Carbon Dioxide 23 mmol/L (22-30); Chloride 105 mmol/L (98-107); Estimated CRCL calculation 23 ml/min; Estimated Glomerular Filt Rate 31; Glucose 108 mg/dL (65-105); Lipase 1071 U/L (23-300); Potassium 2.9 mmol/L (3.4-5.0); Sodium 136 mmol/L (137-145)
[2020-12-21] MEDS: KETOROLAC 30 MG/ML VIAL (*BKC) 15 MG IV PUSH (08:02)
[2020-12-21] MEDS: LACTATED RINGERS 1,000 ML 999 ML IV CONT (08:02)
[2020-12-21 08:40] LABS: Add Urine Microscopic? YES; Appearance Urine Cloudy (Clear); Bacteria Urine Trace /hpf; Bilirubin Urine Negative (Negative); Blood Urine 3+ (Negative); Color Urine Yellow (Yellow); Glucose Urine UA Negative (Negative); Ketones Urine Negative (Negative); Leukocyte Esterase Ur 3+ LEU/UL (Negative); Mucus Urine Rare /lpf; Nitrate Urine Negative (Negative); Protein Urine 2+ mg/dL (Negative); RBC Urine >75 /hpf (0-2); Squamous Epithelial Cell Urine Rare /hpf (Few); WBC Clumps Urine Present /HPF; WBC Urine >75 /hpf
[2020-12-21] MEDS: MORPHINE SULFATE (*CRX) 4 MG/ML INJ IV PUSH (09:26)
[2020-12-21] MEDS: ONDANSETRON INJ 4 MG/2 ML VIAL IV PUSH (09:26)
--- NOTE | 2020-12-21 12:00 | ADMGEN ---
This patient, Dina Smith, was admitted to 2 Medical Room 256-. Patient/family oriented to hospital policies and general routines including ID bracelet, bed and alarms, visiting hours, pain management, procedures, bathroom and other care routines, personal items, smoking policy, room service/diet, and visiting hours. Information on how to activate the Rapid Response Team has been discussed. Patient/Family are encouraged to report perceived risks to care and to ask questions if they do not understand what they are told or what they should do.
[2020-12-21] MEDS: LACTATED RINGERS 1,000 ML 125 ML IV CONT (12:08)
--- NOTE | 2020-12-21 14:00 | PM.IMHP ---
H&P: HPI History of Present Illness Date/Time: 12/21/20 14:00 Chief Complaint: Abdominal pain. Narrative: This is a pleasant 60-year-old female with recurrent metastatic colon cancer, history of small-bowel obstructions, recent right lower extremity DVT for which she is on Eliquis, chronic kidney disease, chronic anemia, hypertension, and congestive heart failure who presented to the emergency department earlier today for evaluation of abdominal pain. Last evening she developed diffuse cramping abdominal discomfort with severe nausea, which lasted throughout the night causing her to not get much sleep. The symptoms are similar to when she had previous small-bowel obstructions, and thus she came in for evaluation today. Her last bowel movement was small and soft, sometime last evening. CT of the abdomen and pelvis today showed evidence of small-bowel obstruction, and she is feeling somewhat better after NG tube was inserted. She denies blood in mucus in the stool. She has not had any episodes of vomiting. No fever, chills, or sweats. Review of Systems Review of Systems: Narrative: Twelve systems were reviewed with pertinent positives and negatives as per HPI. She has lost about 60 pounds in the last couple of years. Appetite is not great. She has chronic bilateral lower extremity edema, typically left greater than right, however more recently she has been having pain in her right calf and was diagnosed with a right lower extremity DVT within the last several weeks. She has been started on Eliquis and states compliance with that. No cold or flu symptoms. She denies sick contacts. No known exposure to those positive for COVID-19. She rarely urinates since she had bilateral nephrostomy tubes placed last year. Her urine output has not changed but her urine is a little dark. Except as documented, all other systems were reviewed and are negative. [facility] Past Medical History Medical History (Updated 12/21/20 @ 15:40 by Chioma Steele PA-C) Anemia of chronic disease Anxiety Chronic kidney disease (~03/2020) Baseline creatinine is between 2.0 and 2.40. Congestive heart failure Grade 1 diastolic dysfunction with an EF of 55-60%. Deep vein thrombosis of right lower extremity History of small bowel obstruction Hypertension Metastatic colon cancer in female Diagnosis in 2016, status post colectomy with colostomy and adjuvant chemotherapy with FOLFOX. Status post hyperthermic intraperitoneal chemotherapy with debulking surgery in 2018 done in [place]. Status post bilateral nephrostomy tube placement in August 2020 due to extrinsic compression of the ureters from a large tumor, found to be recurrent metastatic cancer. Imaging on 12/21/2020 showed a malignant mass in the sigmoid colon with pelvic lymphadenopathy and multiple peritoneal masses consistent with metastatic disease. She is currently receiving immunotherapy per Dr. Arango. Moderate aortic regurgitation Port-A-Cath in place Surgical History Surgical History (Updated 12/21/20 @ 15:31 by Chioma Steele PA-C) History of bone marrow biopsy History of laparotomy (~2017) Debulking surgery for metastatic colon cancer. History of nephrostomy Bilateral nephrostomy tube placement secondary to extrinsic compression of the ureters from malignant colon cancer. History of partial colectomy (~2015) With colostomy and subsequent takedown. History of total abdominal hysterectomy and bilateral salpingo-oophorectomy As part of debulking surgery for recurrent colon cancer as detailed above. History of tubal ligation Family History Family History Grandparent Cerebrovascular accident Pancreas cancer Lung cancer Mother Colon cancer Social History Social History (Updated 12/21/20 @ 15:34 by Chioma Steele PA-C) Social History: Patient lives alone in her own home in [place]. She is and has 5 children. She is
[2020-12-21] MEDS: CENTRAL LINE FLUSH 10 ML IV PUSH ×2 (15:23→20:14)
[2020-12-21] MEDS: MORPHINE SULFATE (*CRX) 2 MG/ML INJ IV PUSH ×2 (16:03→20:14)
--- NOTE | 2020-12-21 16:10 | PC.NURSE ---
Chioma Steele was made aware [email or web address] called and reports the NG could be advanced 3-5 cm Chioma requested gag writer advance 5cm. In Room Dining Server advanced and approximately 50cc of of brown drainage retuned previously she had scant drainage.
[2020-12-21 16:16] LABS: Anion Gap 9 mmol/L (8-16); Blood Urea Nitrogen 36 mg/dL (7-17); Calcium 6.7 mg/dL (8.4-10.2); Carbon Dioxide 24 mmol/L (22-30); Chloride 103 mmol/L (98-107); Estimated CRCL calculation 24 ml/min; Estimated Glomerular Filt Rate 31; Glucose 86 mg/dL (65-105); Magnesium 0.7 mg/dL (1.6-2.3); Potassium 3.1 mmol/L (3.4-5.0); Sodium 136 mmol/L (137-145)
[2020-12-21] MEDS: ENOXAPARIN 60 MG/0.6 ML SYRINGE 57 MG SUB-Q (16:58)
[2020-12-21] MEDS: MAGNESIUM SULF 2 GM/WATER 50ML 2 GM/50 ML BAG IVPB (17:04)
[2020-12-21] MEDS: LACTATED RINGERS 1,000 ML 75 ML IV CONT (20:13)
[2020-12-22] VITALS: BP 125/71; PULSE 63; RESP 18; TEMP 36.4; O2SAT 100
[2020-12-22] MEDS: MORPHINE SULFATE (*CRX) 2 MG/ML INJ IV PUSH ×3 (01:00→14:52)
[2020-12-22 04:00] VITALS: BP 142/81; PULSE 58; RESP 20; TEMP 36.6; O2SAT 100
[2020-12-22] MEDS: CENTRAL LINE FLUSH 10 ML IV PUSH ×3 (05:16→21:48)
[2020-12-22 07:51] LABS: Basophils Percent Auto 0.4 % (0.2-1.2); Eosinophils Absolute Auto 0.1 K/mm3 (0-0.3); Hematocrit 23.5 % (37.0-47.0); Hemoglobin 7.6 g/dL (12.0-15.0); Immature Granulocyte Absolute 0.03 K/mm3 (0.00-0.031); Immature Granulocyte Percent A 0.4 % (0-0.5); Lymphocytes Absolute Auto 0.81 K/mm3 (0.9-3.2); Mean Corpuscular HGB Conc 32.3 g/dl (32-36); Mean Corpuscular Hemoglobin 29.3 pg (26-34); Mean Corpuscular Volume 90.7 fl (80-100); Mean Platelet Volume 9.3 fl (7.4-10.4); Monocytes Absolute Auto 0.5 K/mm3 (0.1-0.6); Monocytes Percent Auto 7.1 % (2.6-8.5); Neutrophils Absolute Auto 5.4 K/mm3 (1.3-6.7); Neutrophils Percent Auto 79.1 % (45.5-73.1); Platelet Count Result 227 k/mm3 (150-375); Red Blood Count 2.59 M/mm3 (4.2-5.4); Red Cell Distribution Width 18.1 % (11.5-14.5); White Blood Count 6.8 K/mm3 (4.5-10.0)
[2020-12-22 07:58] LABS: Anion Gap 6 mmol/L (8-16); Blood Urea Nitrogen 34 mg/dL (7-17); Calcium 7.3 mg/dL (8.4-10.2); Carbon Dioxide 24 mmol/L (22-30); Chloride 109 mmol/L (98-107); Estimated CRCL calculation 26 ml/min; Estimated Glomerular Filt Rate 33; Glucose 64 mg/dL (65-105); Lipase 1333 U/L (23-300); Magnesium 1.3 mg/dL (1.6-2.3); Potassium 3.2 mmol/L (3.4-5.0); Sodium 139 mmol/L (137-145)
[2020-12-22] MEDS: MAGNESIUM SULF 2 GM/WATER 50ML 2 GM/50 ML BAG IVPB (09:41)
[2020-12-22 12:35] LABS: Hematocrit 22.9 % (37.0-47.0); Hemoglobin 7.5 g/dL (12.0-15.0)
[2020-12-22 14:00] VITALS: BP 128/68; PULSE 77; RESP 14; TEMP 36.9; O2SAT 100
--- NOTE | 2020-12-22 15:44 | PM.IMPN ---
Progress Note: A&P Assessment and Plan (1) Small bowel obstruction: Code(s): K56.609 - Unspecified intestinal obstruction, unspecified as to partial versus complete obstruction Status: Acute Assessment and Plan: CT consistent with bowel obstruction -lipase also elevated likely due to this, she has a history of this as well -NG tube intact with suction -will consult surgery since the patient is high risk due to abdominal mass -repeat x-ray in the morning, consider small-bowel follow-through (2) Hypokalemia: Code(s): E87.6 - Hypokalemia Status: Acute Assessment and Plan: Likely due to her low magnesium and now she is NPO -patient states that she has taken oral liquid potassium and although she did not like it, she did not have swelling of the lips tongue or throat -she is agreeable to IV potassium -continue to monitor and supplement magnesium as well (3) Elevated lipase: Code(s): R74.8 - Abnormal levels of other serum enzymes Status: Acute Assessment and Plan: Likely due to bowel obstruction (4) Abnormal urinalysis: Code(s): R82.90 - Unspecified abnormal findings in urine Status: Acute Assessment and Plan: UA could look suspicious due to nephrostomy tubes -await urine culture -no signs of systemic infection at this time -no antibiotic indicated at this time (5) Chronic kidney disease: Onset Date: ~03/2020 Code(s): N18.9 - Chronic kidney disease, unspecified Status: Inactive Assessment and Plan: At baseline -patient has nephrostomy tubes (6) Anemia of chronic disease: Code(s): D63.8 - Anemia in other chronic diseases classified elsewhere Status: Inactive Assessment and Plan: Patient has a long history Of iron deficiency anemia -hemoglobin stable -no signs of blood loss on exam -monitor (7) Deep vein thrombosis of right lower extremity: Code(s): I82.401 - Acute embolism and thrombosis of unspecified deep veins of right lower extremity Status: Inactive Assessment and Plan: Continue Therapeutic Lovenox -patient on Eliquis at home (8) Congestive heart failure: Code(s): I50.9 - Heart failure, unspecified Status: Chronic Assessment and Plan: Patient is euvolemic -monitor fluid status (9) Metastatic colon cancer in female: Code(s): C18.9 - Malignant neoplasm of colon, unspecified Status: Acute Assessment and Plan: Diagnosis in 2016, status post colectomy with colostomy and adjuvant chemotherapy with FOLFOX at [facility]. Status post hyperthermic intraperitoneal chemotherapy with debulking surgery in 2018 done in [place]. Status post bilateral nephrostomy tube placement in August 2020 due to extrinsic compression of the ureters from a large tumor, found to be recurrent metastatic cancer. Imaging on 12/21/2020 showed a malignant mass in the sigmoid colon with pelvic lymphadenopathy and multiple peritoneal masses consistent with metastatic disease. She is currently receiving immunotherapy per Dr. Arango. Will consult Dr. Arango. Patient and family have lots of questions Time Spent With Patient Time with patient: 25 - 35 minutes Subjective Date/time seen: 12/22/20 15:44 Interval history: Pt is a 60-year-old female here for small bowel obstruction. Patient was seen today and states she is doing much better with the NG tube. She is passing gas but has not had a bowel movement. Pt denies nausea, vomiting, fevers, chills, chest pain, sob, or abdominal pain. She states she does not tolerate potassium very well but denies any swelling of her lips or tongue. She said the liquid potassium simply makes her feel weird and like it is going right through her body . She has not tried IV potassium and is willing to try. She said she just received a prescription for this outpatient. Her daughter and the patient hav
[2020-12-22 16:02] VITALS: O2SAT 96
[2020-12-22] MEDS: ENOXAPARIN 60 MG/0.6 ML SYRINGE 57 MG SUB-Q (16:29)
[2020-12-22] MEDS: LACTATED RINGERS 1,000 ML 75 ML IV CONT (16:32)
[2020-12-22] MEDS: MORPHINE SULFATE (*CRX) 4 MG/ML INJ 3 MG IV PUSH (19:59)
[2020-12-22 20:00] VITALS: BP 144/76; PULSE 63; RESP 20; TEMP 36.3; O2SAT 100
[2020-12-23] MEDS: MORPHINE SULFATE (*CRX) 4 MG/ML INJ 3 MG IV PUSH ×3 (01:07→20:44)
[2020-12-23] MEDS: LACTATED RINGERS 1,000 ML 75 ML IV CONT ×2 (03:25→16:56)
[2020-12-23 04:00] VITALS: BP 130/62; PULSE 51; RESP 20; TEMP 36.6; O2SAT 100
[2020-12-23 05:20] LABS: Hematocrit 22.3 % (37.0-47.0); Hemoglobin 7.3 g/dL (12.0-15.0); Mean Corpuscular HGB Conc 32.7 g/dl (32-36); Mean Corpuscular Hemoglobin 29.7 pg (26-34); Mean Corpuscular Volume 90.7 fl (80-100); Mean Platelet Volume 8.7 fl (7.4-10.4); Platelet Count Result 205 k/mm3 (150-375); Red Blood Count 2.46 M/mm3 (4.2-5.4); Red Cell Distribution Width 18.1 % (11.5-14.5); White Blood Count 6.8 K/mm3 (4.5-10.0)
[2020-12-23 05:46] LABS: Anion Gap 1 mmol/L (8-16); Blood Urea Nitrogen 27 mg/dL (7-17); CRP 2.5 mg/dL (<1.0); Calcium 7.9 mg/dL (8.4-10.2); Carbon Dioxide 29 mmol/L (22-30); Chloride 110 mmol/L (98-107); Estimated CRCL calculation 29 ml/min; Estimated Glomerular Filt Rate 37; Glucose 67 mg/dL (65-105); Magnesium 1.5 mg/dL (1.6-2.3); Potassium 3.4 mmol/L (3.4-5.0); Sodium 140 mmol/L (137-145)
[2020-12-23] MEDS: CENTRAL LINE FLUSH 10 ML IV PUSH ×3 (05:53→22:11)
[2020-12-23 09:11] LABS: Carcinoembryonic Antigen 4.2 ng/mL (0.0-3.0)
[2020-12-23] MEDS: MAGNESIUM SULF 2 GM/WATER 50ML 2 GM/50 ML BAG IVPB (09:23)
--- NOTE | 2020-12-23 09:58 | PM.IMPN ---
Progress Note: A&P Assessment and Plan (1) Small bowel obstruction: Code(s): K56.609 - Unspecified intestinal obstruction, unspecified as to partial versus complete obstruction Status: Acute Assessment and Plan: CT consistent with bowel obstruction -lipase also elevated likely due to this, she has a history of this as well -NG tube intact with suction. Pt is having gas -spoke with sx about plan of care (2) Hypokalemia: Code(s): E87.6 - Hypokalemia Status: Acute Assessment and Plan: Resolved, likely due to her low magnesium and now she is NPO -pt did fine with IV potassium overnight -continue to monitor and supplement magnesium as well (3) Elevated lipase: Code(s): R74.8 - Abnormal levels of other serum enzymes Status: Acute Assessment and Plan: Likely due to bowel obstruction (4) Abnormal urinalysis: Code(s): R82.90 - Unspecified abnormal findings in urine Status: Acute Assessment and Plan: Urine cx growing the same organisms as last month -No symptoms of infection -No signs of infection: no fever, no elevated WBC -spoke with urology briefly who states this is often colonized and no tx needed unless she is having signs of infection -no signs of systemic infection at this time -no antibiotic at this time (5) Chronic kidney disease: Onset Date: ~03/2020 Code(s): N18.9 - Chronic kidney disease, unspecified Status: Inactive Assessment and Plan: At baseline -patient has nephrostomy tubes (6) Anemia of chronic disease: Code(s): D63.8 - Anemia in other chronic diseases classified elsewhere Status: Inactive Assessment and Plan: Patient has a long history Of iron deficiency anemia -hemoglobin stable -no signs of blood loss on exam -monitor (7) Deep vein thrombosis of right lower extremity: Code(s): I82.401 - Acute embolism and thrombosis of unspecified deep veins of right lower extremity Status: Inactive Assessment and Plan: Continue Therapeutic Lovenox -patient on Eliquis at home (8) Congestive heart failure: Code(s): I50.9 - Heart failure, unspecified Status: Chronic Assessment and Plan: Patient is euvolemic -monitor fluid status (9) Metastatic colon cancer in female: Code(s): C18.9 - Malignant neoplasm of colon, unspecified Status: Acute Assessment and Plan: Diagnosis in 2016, status post colectomy with colostomy and adjuvant chemotherapy with FOLFOX at [facility]. Status post hyperthermic intraperitoneal chemotherapy with debulking surgery in 2017 done in [place]. Status post bilateral nephrostomy tube placement in August 2020 due to extrinsic compression of the ureters from a large tumor, found to be recurrent metastatic cancer. Imaging on 12/21/2020 showed a malignant mass in the sigmoid colon with pelvic lymphadenopathy and multiple peritoneal masses consistent with metastatic disease. She is currently receiving immunotherapy per Dr. Arango. Dr. Arango has been consulted. Patient and family have lots of questions -CEA mildly elevated but no previous labs to compare it to Subjective Date/time seen: 12/23/20 09:58 Interval history: Pt is a 60-year-old female here for small bowel obstruction. Patient was seen today and states she is doing much better. She is passing a lot of gas but no BM yet. Pt denies nausea, vomiting, fevers, chills, chest pain, sob, or abdominal pain. She had no problems with the IV potassium yesterday. Exam Narrative: Exam Narrative: General: Well developed well nourished patient in NAD HEENT: normocephalic, Ng tube intact Neck: supple Neuro: Alert and oriented x4 CV:RRR with 3/6 systolic murmur Resp:CTA Abd: Soft, non distended. No pain to palpation. + bowel sounds. nephrostomy tubes intact and draining Extremities: No swelling, erythema, or pain to palpati
[2020-12-23 14:00] VITALS: BP 142/71; PULSE 60; RESP 16; TEMP 36.4; O2SAT 100
[2020-12-23] MEDS: ENOXAPARIN 60 MG/0.6 ML SYRINGE 57 MG SUB-Q (15:46)
--- NOTE | 2020-12-23 16:23 | PM.CNGS ---
Assessment and Plan Assessment and plan (1) Metastatic colon cancer in female: Onset Date: ~2018 Code(s): C18.9 - Malignant neoplasm of colon, unspecified Status: Acute Assessment and Plan: Ca is slightly up. She has been being treated with immune therapy by Dr. Veronica miranda and he is to consult tomorrow. CT scan shows a tumor near the old anastomotic site in the rectosigmoid area. Also there are some peritoneal implants. There is also a tumor low in the pelvis either in lymph nodes or just behind the right side of the bladder. There is also a nodule in the left liver which may be hemangioma versus metastasis. There is also a smaller nodule in the lateral right lobe of the liver. (2) Small bowel obstruction: Onset Date: ~12/21/20 Code(s): K56.609 - Unspecified intestinal obstruction, unspecified as to partial versus complete obstruction Status: Acute Assessment and Plan: Although today's abdominal x-rays deemed shows still some dilated loops of small bowel the patient clinically is improved with passing flatus and less abdominal pain and distention. See my exam above. Will try a clamping routine under NG tube and she also tolerates this. Will repeat abdominal x-rays in the morning and if they show some prove it will consider removal of the NG tube in trial of clear liquids. (3) Anemia due to stage 3b chronic kidney disease: Onset Date: Unknown Code(s): N18.32 - Chronic kidney disease, stage 3b; D63.1 - Anemia in chronic kidney disease Status: Acute Assessment and Plan: Patient has been following with Dr. Veronica miranda on this and he will be evaluating her tomorrow. Perhaps she will resume Procrit or get an iron infusion well in patient. (4) Hypertension: Code(s): I10 - Essential (primary) hypertension Status: Acute Assessment and Plan: Patient will be resuming her home meds once she can take p.o. liquids. For now I believe hydralazine is ordered for p.r.n. if blood pressure is greater than 160 systolic. Medicine service taking care of this. History of Present Illness Consult details Consult date: 12/23/20 Reason for consult: abdominal pain Requesting physician: Mckenna Ulrich PA-C Narrative: This is a 60-year-old Black woman who I am asked to see for a small-bowel obstruction. She presented to the emergency department overnight on 12/21 with abdominal pain that has been worsening over 24 hr. She did have 1 episode of vomiting and has had some nausea. She thought that she Has been having bowel movements about once a day over the last week until this stopped on . She has a very extensive prior abdominal surgical history. She has had 2 surgeries for colon cancer. Her 1st surgery was done at [facility] in 2016 and she was given an ostomy at that time. She then had a debulking surgery for stage IV colon cancer in [facility]. She thinks that her last colonoscopy was in 2019. She has been dealing with bilateral hydronephrosis which was thought to be secondary to her malignancy. She has bilateral nephrostomy tubes now that her functional. She has been seeing Dr. Arango and is currently being treated with immunotherapy. Her most recent PET scan shows increased uptake suggestive ongoing malignancy. The CT in the emergency department On Thursday eveningshowed evidence of a small-bowel obstruction. and also showed tumor just distal to her colorectal anastomosis and another tumor along the lymph node chain just behind the right side of the bladder. She also has a nodule in the left lobe of the liver which is either metastatic tumor perhaps a hemangioma. She also has a smaller nodule in the right lobe of the liver. I reviewed the CT with the radiologist today and he also believes there is some peritoneal metastasis that are small please see the report. There is no obvious mass right at the site where there
[2020-12-23 22:00] VITALS: BP 126/84; PULSE 75; RESP 21; TEMP 36.1; O2SAT 100
[2020-12-23] MEDS: diphenhydrAMINE HCl INJ 50 MG/ML VIAL 25 MG IV PUSH (22:10)
[2020-12-24] VITALS (8 sets, daily range): BP systolic 116–141; BP diastolic 68–92; PULSE 58–74; RESP 16–21; TEMP 36.2–36.9; O2SAT 96–100
[2020-12-24] MEDS: CENTRAL LINE FLUSH 10 ML IV PUSH ×2 (06:12→20:54)
[2020-12-24] MEDS: LACTATED RINGERS 1,000 ML 75 ML IV CONT (06:12)
[2020-12-24 06:34] LABS: Hematocrit 21.2 % (37.0-47.0); Mean Corpuscular HGB Conc 31.6 g/dl (32-36); Mean Corpuscular Hemoglobin 28.9 pg (26-34); Mean Corpuscular Volume 91.4 fl (80-100); Mean Platelet Volume 9.3 fl (7.4-10.4); Platelet Count Result 185 k/mm3 (150-375); Red Blood Count 2.32 M/mm3 (4.2-5.4); Red Cell Distribution Width 18.3 % (11.5-14.5); White Blood Count 7.2 K/mm3 (4.5-10.0)
[2020-12-24 06:38] LABS: Hemoglobin 6.7 g/dL (12.0-15.0)
[2020-12-24 06:56] LABS: Alanine Aminotransferase 8 U/L (4-35); Albumin Level 2.1 g/dL (3.5-5.1); Alkaline Phosphatase 55 U/L (38-126); Anion Gap 4 mmol/L (8-16); Aspartate Amino Transferase 18 U/L (14-36); Bilirubin,Total 0.3 mg/dL (0.2-1.3); Blood Urea Nitrogen 25 mg/dL (7-17); Calcium 7.7 mg/dL (8.4-10.2); Carbon Dioxide 28 mmol/L (22-30); Chloride 109 mmol/L (98-107); Estimated CRCL calculation 30 ml/min; Estimated Glomerular Filt Rate 37; Glucose 52 mg/dL (65-105); Lipase 1101 U/L (23-300); Magnesium 1.6 mg/dL (1.6-2.3); Potassium 3.6 mmol/L (3.4-5.0); Sodium 141 mmol/L (137-145)
[2020-12-24 07:34] LABS: Glucose Point of Care 56 (65-105)
[2020-12-24] MEDS: DEXTROSE 50% 25 GM/50 ML SYRINGE IV PUSH (07:46)
--- NOTE | 2020-12-24 08:30 | PC.NURSE ---
Per patient, she usually receives pre-medications prior to blood transfusions. She receives Acetaminophen and Benadryl. Notified Mckenna GARCIA of same and she requests I contact Dr. Arango for pre-medication orders. Called Dr. Arango via cell phone and left voice message requesting same.
[2020-12-24 08:35] LABS: Glucose Point of Care 138 (65-105)
[2020-12-24] MEDS: MAGNESIUM SULF 2 GM/WATER 50ML 2 GM/50 ML BAG IVPB (09:32)
--- NOTE | 2020-12-24 10:00 | PC.NURSE ---
No call back from Dr. Arango regarding pre-medication for blood transfusion. Called office and left voice message regarding same. Awaiting return call.
--- NOTE | 2020-12-24 11:11 | PCNFU ---
Nutrition Follow-Up Complete: Unintended weight loss related to SBO as evidenced by 12% weight loss as of September 2020. Goal: Patient to meet estimated nutritional needs. Patient is being advanced from NPO to clear liquids today. Hopefully on her way to meeting nutritional needs. Pt current nutrition is NPO but advancing to clear liquids today. Last recorded weight is 61.2 kg. Bowel Motility: + BM 12/20 Labs Reviewed: Hgb 6.7, Hct 21.2, Alb 2.1, GFR 37, BUN 25, Cr 1.7, Glu 52 Meds Noted: Lactated Ringers, Zofran, Porcine, Lovenox, Additional Notes: Spoke with patient today to see how she was doing. She said her stomach has been feeling better and confirmed she was advancing to a clear liquids diet today. She reported being very hungry and excited to eat. I spoke with her a little bit about the advancement of her diet and assured her I would be back to speak with her about low-fiber diet as her diet advances per MD orders. As I was leaving patient was receiving jello and broth. Patient will receive ensure clear will all clear liquid trays providing an additional 240 calories and 8 grams of protein. Monitor patient's labs, medications, weight, and oral intake (if applicable) every 3 days.
--- NOTE | 2020-12-24 11:15 | PC.NURSE ---
Addendum entered by iTla Carlisle RN 12/24/20 11:43: Able to undo medications below. Original Note: Patient refused po Tylenol and Benadryl prior to blood transfusion. States she usually takes the meds IV. Notified Mckenna GARCIA and orders changed. Meds were scanned prior to patient refusing and system would not let me undo them. Pharmacist also unable to undo meds. Meds not given and were wasted with Julius Pandya RN witnessing. IV meds ordered.
--- NOTE | 2020-12-24 11:47 | PM.IMPN ---
Progress Note: A&P Assessment and Plan (1) Small bowel obstruction: Onset Date: ~12/21/20 Code(s): K56.609 - Unspecified intestinal obstruction, unspecified as to partial versus complete obstruction Status: Acute Assessment and Plan: CT consistent with bowel obstruction -New xray shows improvement and pts symptoms are improving as well -Likely remove NG tube today per sx -lipase also elevated likely due to this as she has a hx of this -spoke with sx about plan of care (2) Hypokalemia: Code(s): E87.6 - Hypokalemia Status: Acute Assessment and Plan: Resolved, likely due to her low magnesium and now she is NPO -pt did fine with IV potassium this stay -continue to monitor and supplement magnesium as well (3) Elevated lipase: Code(s): R74.8 - Abnormal levels of other serum enzymes Status: Acute Assessment and Plan: Likely due to bowel obstruction (4) Abnormal urinalysis: Code(s): R82.90 - Unspecified abnormal findings in urine Status: Acute Assessment and Plan: Urine cx growing the same organisms as last month -No symptoms of infection -No signs of infection: no fever, no elevated WBC -spoke with urology briefly who states this is often colonized and no tx needed unless she is having signs of infection -no signs of systemic infection at this time -no antibiotic indicated (5) Chronic kidney disease: Onset Date: ~03/2020 Code(s): N18.9 - Chronic kidney disease, unspecified Status: Inactive Assessment and Plan: At baseline -patient has nephrostomy tubes (6) Anemia of chronic disease: Code(s): D63.8 - Anemia in other chronic diseases classified elsewhere Status: Inactive Assessment and Plan: Patient has a long history Of iron deficiency anemia -hemoglobin lower today, will transfuse 1 unit -no signs of blood loss on exam but is on lovenox -monitor (7) Deep vein thrombosis of right lower extremity: Code(s): I82.401 - Acute embolism and thrombosis of unspecified deep veins of right lower extremity Status: Inactive Assessment and Plan: Continue Therapeutic Lovenox -patient on Eliquis at home (8) Congestive heart failure: Code(s): I50.9 - Heart failure, unspecified Status: Chronic Assessment and Plan: Patient is euvolemic -monitor fluid status (9) Metastatic colon cancer in female: Onset Date: ~2017 Code(s): C18.9 - Malignant neoplasm of colon, unspecified Status: Acute Assessment and Plan: Diagnosis in 2015, status post colectomy with colostomy and adjuvant chemotherapy with FOLFOX at [facility]. Status post hyperthermic intraperitoneal chemotherapy with debulking surgery in 2017 done in [place]. Status post bilateral nephrostomy tube placement in August 2020 due to extrinsic compression of the ureters from a large tumor, found to be recurrent metastatic cancer. Imaging on 12/21/2020 showed a malignant mass in the sigmoid colon with pelvic lymphadenopathy and multiple peritoneal masses consistent with metastatic disease. She is currently receiving immunotherapy per Dr. Arango. Dr. Arango has been consulted. Patient and family have lots of questions -CEA mildly elevated but no previous labs to compare it to Subjective Date/time seen: 12/24/20 11:47 Interval history: Pt is a 60-year-old female here for small bowel obstruction. Patient was seen today and states she is doing much better. She is passing a lot of gas but no BM yet. Pt denies nausea, vomiting, fevers, chills, chest pain, sob, or abdominal pain. She is feeling much better. She says in order to get blood she needs Benadryl and Tylenol. Exam Narrative: Exam Narrative: General: Well developed well nourished patient in NAD HEENT: normocephalic, Ng tube intact Neck: supple Neuro: Alert and oriented x4 CV:RRR with 3/6 syst
--- NOTE | 2020-12-24 12:05 | PCNSR ---
On 12/24/20, the student, Maria Luz Sen, provided care and completed [employer] documentation on this patient. I have reviewed the student's documentation and agree with the findings. Clarified with RN that diet order remains NPO at this time with NG tube in place.
[2020-12-24] MEDS: MAGNESIUM HYDROXIDE SUSP 30 ML UDC FEED TUBE (12:57)
[2020-12-24] MEDS: SODIUM CHLORIDE 0.9% IV 250 ML 30 ML IV CONT (13:15)
[2020-12-24] MEDS: diphenhydrAMINE HCl INJ 50 MG/ML VIAL 25 MG IV PUSH ×2 (13:16→20:54)
--- NOTE | 2020-12-24 13:38 | PM.PNGS ---
Progress Note: A&P Assessment and Plan (1) Small bowel obstruction: Onset Date: ~12/21/20 Code(s): K56.609 - Unspecified intestinal obstruction, unspecified as to partial versus complete obstruction Status: Acute Assessment and Plan: Seems to be resolving. Today's abdominal films were improved with no dilated loops of small bowel. She is tolerating the NG tube clamping trial. I will order one dose of milk of magnesia down the NG tube and then have the nurse remove the NG. Start a clear liquid diet. Encouraged the patient to walk the halls. (2) Metastatic colon cancer in female: Onset Date: ~2018 Code(s): C18.9 - Malignant neoplasm of colon, unspecified Status: Acute Assessment and Plan: CT abd/pelvis shows evidence of metastatic colon cancer. Dr. Arango follows the patient for palliative monoclonal antibody therapy as an outpatient. She has refused further chemotherapy. Oncology has been consulted. (3) Anemia due to stage 3b chronic kidney disease: Onset Date: Unknown Code(s): N18.32 - Chronic kidney disease, stage 3b; D63.1 - Anemia in chronic kidney disease Status: Acute Assessment and Plan: Hgb 6.7 and 1 unit PRBC has been ordered today. Oncology consulted and has been following the patient on an outpatient basis. She has been on Procrit. (4) Hypertension: Code(s): I10 - Essential (primary) hypertension Status: Acute Assessment and Plan: Okay to resume oral home medications if tolerating her clear liquid diet. Management per Hospitalist. Additional Plan Discussed the patient's plan of care with Dr. Corral. Subjective Subjective Date/Time Seen: 12/24/20 11:50 Patient reports: feels better, flatus and no bowel movement Interval history: Patient feeling much better today. Reports lots of flatus but no BM. Denies bloating, nausea, or vomiting with NG tube clamping trial. Patient has no other complaints at this time. Review of Systems Review of Systems: All systems reviewed & are unremarkable except as noted in HPI and below Exam Const: General: no acute distress, alert and awake Orientation/consciousness: patient oriented x3 GI: Inspection: normal to inspection and non-distended GI Palp: Yes Soft to palpation, No Tenderness to palpation present (GI) and No Guarding due to palpation present (GI) Auscultation: normal bowel sounds Other: NG tube clamped Skin: General skin exam: no rashes or lesions noted Neuro: General: no focal motor deficits Speech: normal speech Extrem: General: no clubbing, cyanosis or edema Psych: Mental Status: mental status grossly normal Attitude: cooperative Insight: Good insight present (Psych) Judgement: Good judgement present (Psych) Objective Data Vital Signs Vital Signs: Vital Signs - 24 hr 12/23/20 14:00 12/23/20 22:00 12/24/20 06:00 Temperature 97.5 F L 97.0 F L 97.1 F L Pulse Rate 60 75 66 Respiratory Rate 16 21 H 21 H Blood Pressure 142/71 H 126/84 116/70 Pulse Oximetry 100 100 100 Intake/Output Intake/Output: Intake & Output 12/21/20 12/22/20 12/23/20 12/24/20 23:59 23:59 23:59 23:59 Intake Total 2150 1050 2680 1050 Output Total 350 2000 1925 1050 Balance 1800 -950 755 0 Meds/Results Medications: Active Medications Generic Name Dose Route Start Last Admin Trade Name Freq PRN Reason Stop Dose Admin Dextrose 12.5 gm 12/24/20 08:26 Dextrose 50% 25 Gm/50 Ml Syringe IV PUSH PRN PRN Hypoglycemia Protocol Diphenhydramine HCl 25 mg 12/23/20 16:16 12/23/20 22:10 Diphenhydramine Hcl Inj 50 Mg/Ml Vial IV PUSH 25 mg HS PRN Administration Insomnia Enoxaparin Sodium 57 mg 12/21/20 16:00 12/23/20 15:46 Enoxaparin 60 Mg/0.6 Ml Syringe SUB-Q 57 mg Q24H BORIS Administration Glucagon 1 mg 12/24/20 08:26 Glucagon For Inj 1 Mg Vial IM PRN PRN Hypoglycemia Protocol Glucose 15 gm 12/24/20 08:26 Gluc
--- NOTE | 2020-12-24 14:00 | PC.NURSE ---
Per blood bank, patient has antibodies and is being given the most compatible blood available after all screening done. Called Dr. Arango and discussed with his nurse. She spoke with Dr. Arango and he agreed to sign the emergency blood release form and states blood should be transfused as ordered.
[2020-12-24] MEDS: ENOXAPARIN 60 MG/0.6 ML SYRINGE 57 MG SUB-Q (17:39)
--- NOTE | 2020-12-24 18:38 | PDONCCN ---
HPI - Date of Consult Date/Time: 12/24/20 18:38 Requesting Physician: Mckenna Ulrich PA-C Primary Care Provider: Dilshad DenneyMD - Consult Narrative Reason for consult: Metastatic colon cancer Narrative: Dina Smith is a 60 year old female with recurrent metastatic colon cancer and previous history of small-bowel obstruction came into the hospital with complain of abdominal pain started evening prior to that patient diffuse in nature along with severe nausea. Patient had similar episode of small-bowel obstruction few weeks ago. CT scan of the abdomen and pelvis was performed that showed evidence of small-bowel obstruction. NG tube was placed. NG tube removed today as she is feeling better and going to eat her clear liquid diet today. She had a bowel movement today. In regards to her cancer she is on monoclonal antibody with Vectibix as she refused to have any further chemotherapy. She was due to have her treatment today. Review of Systems - Review of Systems All systems reviewed & are unremarkable except as noted in HPI and bel - Neurologic Reports hearing normal, Denies headache(s), Denies loss of vision, Denies memory loss [facility] Medical History: Medical History (Last Updated 12/22/20 @ 15:57 by Mckenna Ulrich PA-C) Anemia of chronic disease Anxiety Chronic kidney disease Onset Date: ~03/2020 Baseline creatinine is between 2.0 and 2.40. Congestive heart failure Grade 1 diastolic dysfunction with an EF of 55-60%. Deep vein thrombosis of right lower extremity History of small bowel obstruction Hypertension Metastatic colon cancer in female Onset Date: ~2018 Diagnosis in 2015, status post colectomy with colostomy and adjuvant chemotherapy with FOLFOX. Status post hyperthermic intraperitoneal chemotherapy with debulking surgery in 2018 done in [place]. Status post bilateral nephrostomy tube placement in August 2020 due to extrinsic compression of the ureters from a large tumor, found to be recurrent metastatic cancer. Imaging on 12/21/2020 showed a malignant mass in the sigmoid colon with pelvic lymphadenopathy and multiple peritoneal masses consistent with metastatic disease. She is currently receiving immunotherapy per Dr. Arango. Moderate aortic regurgitation Port-A-Cath in place Surgical History: Surgical History (Last Updated 12/21/20 @ 15:31 by Chioma Steele PA-C) History of bone marrow biopsy History of laparotomy Onset Date: ~2017 Debulking surgery for metastatic colon cancer. History of nephrostomy Bilateral nephrostomy tube placement secondary to extrinsic compression of the ureters from malignant colon cancer. History of partial colectomy Onset Date: ~2015 With colostomy and subsequent takedown. History of total abdominal hysterectomy and bilateral salpingo-oophorectomy As part of debulking surgery for recurrent colon cancer as detailed above. History of tubal ligation Family History: Family History (Last Reviewed 12/21/20 @ 15:32 by Chioma Steele PA-C) Grandparent Cerebrovascular accident Pancreas cancer Lung cancer Mother Colon cancer - Social History Social History: Social History (Last Updated 12/21/20 @ 15:34 by Chioma Steele PA-C) Sexual Orientation: Sexual Orientation (if Verbalized by the Patient): Straight or Heterosexual Others: Spiritual care concerns: No Smoking Status: Smoking status: Former smoker Tobacco type: cigarettes Second hand tobacco smoke exposure: No Smoking end date: 05/02/87 Approximate Smoking End Date: 1979 Smoking Pack-years: Smoking packs per day: 0.5 Smoking cigarettes per day: 10.0 Years smoked: 5 Smoking pack-years: 2.50 Meds Home Medications Medication Instructions Recorded Confirmed Type morphine 15 mg PO Q6H PRN #20 tablet 09/03/20 12/21/20 Rx Eliquis 5 mg BYMOUTH BID 12/10/20 12/21/20 History furosemide 20 mg BYMOUTH DAILY
[2020-12-24 19:00] LABS: Glucose Point of Care 84 (65-105)
[2020-12-24] MEDS: EPOETIN ALFA-EPBX 20,000 UNITS/ML VIAL 20000 UNITS SUB-Q (20:52)
[2020-12-24 20:59] LABS: Glucose Point of Care 109 (65-105)
[2020-12-25] MEDS: LACTATED RINGERS 1,000 ML 75 ML IV CONT (02:12)
[2020-12-25 06:00] VITALS: BP 131/74; PULSE 72; RESP 16; TEMP 36.4; O2SAT 99
[2020-12-25] MEDS: MORPHINE SULFATE (*CRX) 4 MG/ML INJ 3 MG IV PUSH (06:07)
[2020-12-25] MEDS: CENTRAL LINE FLUSH 10 ML IV PUSH ×2 (06:08→21:13)
[2020-12-25 06:42] LABS: Hematocrit 27.9 % (37.0-47.0); Hemoglobin 9.3 g/dL (12.0-15.0)
[2020-12-25 06:51] LABS: Anion Gap -5 mmol/L (8-16); Blood Urea Nitrogen 24 mg/dL (7-17); Calcium 7.6 mg/dL (8.4-10.2); Carbon Dioxide 29 mmol/L (22-30); Chloride 107 mmol/L (98-107); Estimated CRCL calculation 26 ml/min; Estimated Glomerular Filt Rate 31; Glucose 70 mg/dL (65-105); Magnesium 1.8 mg/dL (1.6-2.3); Potassium 3.7 mmol/L (3.4-5.0); Sodium 131 mmol/L (137-145)
--- NOTE | 2020-12-25 08:16 | PC.NURSE ---
Blood glucose 67. Patient asymptomatic. On clear liquids. Given 4 oz apple juice instead of glucose gel. Will recheck glucose in 1 hour.
[2020-12-25 08:19] LABS: Glucose Point of Care 67 (65-105)
[2020-12-25 08:45] VITALS: BP 110/68; PULSE 77; RESP 16; TEMP 36.2; O2SAT 98
[2020-12-25 09:25] LABS: Glucose Point of Care 99 (65-105)
--- NOTE | 2020-12-25 10:44 | PM.IMPN ---
Progress Note: A&P Assessment and Plan (1) Small bowel obstruction: Onset Date: ~12/21/20 Code(s): K56.609 - Unspecified intestinal obstruction, unspecified as to partial versus complete obstruction Status: Acute Assessment and Plan: Patient with recurrent metastatic colon cancer presents with abdominal pain; CT abd/pel was consistent with bowel obstruction. NG out yesterday; tolerated clear liquid diet well so far. Had BMs last night and is passing flatus. Spoke with surgery team and we will advance to full liquids this AM. Overall, improving. (2) Metastatic colon cancer in female: Onset Date: ~2017 Code(s): C18.9 - Malignant neoplasm of colon, unspecified Status: Acute Assessment and Plan: Diagnosis in 2015, status post colectomy with colostomy and adjuvant chemotherapy with [facility]FOX at [facility]. Status post hyperthermic intraperitoneal chemotherapy with debulking surgery in 2017 done in [place]. Status post bilateral nephrostomy tube placement in August 2020 due to extrinsic compression of the ureters from a large tumor, found to be recurrent metastatic cancer. Imaging on 12/21/2020 showed a malignant mass in the sigmoid colon with pelvic lymphadenopathy and multiple peritoneal masses consistent with metastatic disease. She is currently receiving immunotherapy per Dr. Arango. Continue oncology recommendations. Reviewed Dr Arango's note and anticipate she will resume her monoclonal antibody therapy at discharge. (3) Hypokalemia: Code(s): E87.6 - Hypokalemia Status: Resolved Assessment and Plan: Resolved, will continue to monitor. (4) Elevated lipase: Code(s): R74.8 - Abnormal levels of other serum enzymes Status: Acute Assessment and Plan: Suspect was related to bowel obstruction. No abdominal pain today. (5) Abnormal urinalysis: Code(s): R82.90 - Unspecified abnormal findings in urine Status: Acute Assessment and Plan: Urine culture growing the same organisms as last month. No signs or symptoms of infection. No indication for antibiotics unless she is having signs of infection, will monitor for urinary symptoms. (6) Chronic kidney disease: Onset Date: ~03/2020 Qualifiers: Chronic kidney disease stage: stage 3 (moderate) Chronic kidney disease stage 3 subtype: stage 3b (GFR 30-44) Qualified Code(s): N18.32 - Chronic kidney disease, stage 3b Code(s): N18.9 - Chronic kidney disease, unspecified Status: Chronic Assessment and Plan: At baseline. Patient has nephrostomy tubes (7) Anemia of chronic disease: Code(s): D63.8 - Anemia in other chronic diseases classified elsewhere Status: Inactive Assessment and Plan: Suspect multifactorial related to iron deficiency and malignancy. She demonstrates no evidence of acute bleeding at this time. She received 1 unit packed RBC 12/24, Hgb low but stable today. Will continue to monitor for any blood loss as she is anticoagulated. Monitor CBC. (8) Deep vein thrombosis of right lower extremity: Qualifiers: Affected thrombotic vein of extremity: unspecified vein of extremity Chronicity: unspecified Qualified Code(s): I82.401 - Acute embolism and thrombosis of unspecified deep veins of right lower extremity Code(s): I82.401 - Acute embolism and thrombosis of unspecified deep veins of right lower extremity Status: Chronic Assessment and Plan: She is maintained on Eliquis at home for history of right leg DVT. This was switched to therapeutic Lovenox on arrival in case she required surgery which seems to not be
[2020-12-25 11:42] LABS: Glucose Point of Care 91 (65-105)
--- NOTE | 2020-12-25 12:57 | PM.PNGS ---
Progress Note: A&P Assessment and Plan (1) Small bowel obstruction: Onset Date: ~12/21/20 Code(s): K56.609 - Unspecified intestinal obstruction, unspecified as to partial versus complete obstruction Status: Acute Assessment and Plan: Seems to be resolving. Tolerating clear liquids. Will advance her diet to pureed diet (she states she will not eat any items on the full liquid diet). Encouraged to walk the halls. (2) Metastatic colon cancer in female: Onset Date: ~2018 Code(s): C18.9 - Malignant neoplasm of colon, unspecified Status: Acute Assessment and Plan: CT abd/pelvis shows evidence of metastatic colon cancer. Oncology consulted and appreciate their recommendations. Planning to continue Vectibix treatment on discharge. (3) Anemia due to stage 3b chronic kidney disease: Onset Date: Unknown Code(s): N18.32 - Chronic kidney disease, stage 3b; D63.1 - Anemia in chronic kidney disease Status: Acute Assessment and Plan: Hgb up to 9.3 following 1 unit PRBC transfusion yesterday. Oncology consulted and has been following the patient on an outpatient basis. Received another dose of Procrit yesterday. (4) Hypertension: Code(s): I10 - Essential (primary) hypertension Status: Acute Assessment and Plan: Management per Hospitalist. Additional Plan Discussed the patient's plan of care with Dr. Corral. Subjective Subjective Date/Time Seen: 12/25/20 10:57 Patient reports: no new complaints, feels better, tolerating liquids well, flatus and bowel movement Interval history: Patient feeling well this morning. Denies any abdominal pain, nausea, vomiting, or bloating. Tolerating clear liquids. Reports multiple BMs through the night and into this morning. No other complaints. Review of Systems Review of Systems: All systems reviewed & are unremarkable except as noted in HPI and below Exam Const: General: no acute distress, alert and awake Orientation/consciousness: patient oriented x3 GI: Inspection: non-distended GI Palp: Yes Soft to palpation, No Tenderness to palpation present (GI) and No Guarding due to palpation present (GI) Auscultation: normal bowel sounds Skin: General skin exam: normal color Neuro: General: no focal motor deficits Extrem: General: no clubbing, cyanosis or edema Psych: Appearance: grossly normal Mental Status: mental status grossly normal Insight: Good insight present (Psych) Judgement: Good judgement present (Psych) Objective Data Vital Signs Vital Signs: Vital Signs - 24 hr 12/24/20 14:10 12/24/20 14:25 12/24/20 15:25 Temperature 98.4 F 97.6 F 98.2 F Pulse Rate 60 74 67 Respiratory Rate 20 20 18 Blood Pressure 141/78 H 136/78 140/74 Pulse Oximetry 100 98 96 12/24/20 16:25 12/24/20 17:20 12/24/20 20:00 Temperature 98.1 F 97.5 F L Pulse Rate 58 L 58 L 68 Respiratory Rate 16 18 16 Blood Pressure 130/68 140/92 H Pulse Oximetry 100 100 100 12/24/20 21:25 12/25/20 06:00 12/25/20 08:45 Temperature 97.4 F L 97.5 F L 97.2 F L Pulse Rate 68 72 77 Respiratory Rate 16 16 16 Blood Pressure 127/70 131/74 110/68 Pulse Oximetry 100 99 98 Intake/Output Intake/Output: Intake & Output 12/22/20 12/23/20 12/24/20 12/25/20 23:59 23:59 23:59 23:59 Intake Total 1050 2680 2190 1590 Output Total 1999 1925 1500 450 Balance -950 084 027 6076 Meds/Results Medications: Active Medications Generic Name Dose Route Start Last Admin Trade Name Freq PRN Reason Stop Dose Admin Dextrose 12.5 gm 12/24/20 08:26 Dextrose 50% 25 Gm/50 Ml Syringe IV PUSH PRN PRN Hypoglycemia Protocol Diphenhydramine HCl 25 mg 12/23/20 16:16 12/24/20 20:54 Diphenhydramine Hcl Inj 50 Mg/Ml Vial IV PUSH 25 mg HS PRN Administration Insomnia Enoxaparin Sodium 57 mg 12/21/20 16:00 12/24/20 17:39 Enoxaparin 60 Mg/0.6 Ml Syringe SUB-Q 57 mg Q24H BORIS Administration Glucagon 1
[2020-12-25 14:03] VITALS: BP 119/78; PULSE 72; RESP 16; TEMP 36.8; O2SAT 100
--- NOTE | 2020-12-25 15:36 | PC.NURSE ---
On 12/25/20, the student, [GAVIN HUNT], provided care and completed [facility] documentation on this patient. I have reviewed the student's documentation and agree with the findings.
[2020-12-25 17:30] LABS: Glucose Point of Care 86 (65-105)
[2020-12-25] MEDS: ENOXAPARIN 60 MG/0.6 ML SYRINGE 57 MG SUB-Q (17:58)
[2020-12-25 20:00] VITALS: PULSE 63; RESP 16; O2SAT 100
[2020-12-25] MEDS: diphenhydrAMINE HCl INJ 50 MG/ML VIAL 25 MG IV PUSH (21:13)
[2020-12-25 22:00] VITALS: BP 128/73; PULSE 63; RESP 16; TEMP 36.7; O2SAT 100
[2020-12-26 06:00] VITALS: BP 123/69; PULSE 62; RESP 18; TEMP 36.4; O2SAT 100
[2020-12-26] MEDS: CENTRAL LINE FLUSH 10 ML IV PUSH ×2 (06:09→15:21)
[2020-12-26 07:01] LABS: Basophils Percent Auto 0.1 % (0.2-1.2); Eosinophils Absolute Auto 0.1 K/mm3 (0-0.3); Hemoglobin 8.2 g/dL (12.0-15.0); Immature Granulocyte Absolute 0.02 K/mm3 (0.00-0.031); Immature Granulocyte Percent A 0.3 % (0-0.5); Lymphocytes Absolute Auto 1.23 K/mm3 (0.9-3.2); Mean Corpuscular HGB Conc 32.8 g/dl (32-36); Mean Corpuscular Hemoglobin 29.3 pg (26-34); Mean Corpuscular Volume 89.3 fl (80-100); Mean Platelet Volume 9.6 fl (7.4-10.4); Monocytes Absolute Auto 0.5 K/mm3 (0.1-0.6); Monocytes Percent Auto 6.4 % (2.6-8.5); Neutrophils Absolute Auto 5.5 K/mm3 (1.3-6.7); Neutrophils Percent Auto 75.2 % (45.5-73.1); Platelet Count Result 193 k/mm3 (150-375); Red Cell Distribution Width 16.5 % (11.5-14.5); White Blood Count 7.2 K/mm3 (4.5-10.0)
[2020-12-26 07:17] LABS: Alanine Aminotransferase 8 U/L (4-35); Albumin Level 1.9 g/dL (3.5-5.1); Alkaline Phosphatase 50 U/L (38-126); Anion Gap 1 mmol/L (8-16); Aspartate Amino Transferase 17 U/L (14-36); Bilirubin,Total 0.3 mg/dL (0.2-1.3); Blood Urea Nitrogen 23 mg/dL (7-17); Calcium 7.5 mg/dL (8.4-10.2); Carbon Dioxide 29 mmol/L (22-30); Chloride 107 mmol/L (98-107); Estimated CRCL calculation 27 ml/min; Estimated Glomerular Filt Rate 33; Glucose 65 mg/dL (65-105); Magnesium 1.5 mg/dL (1.6-2.3); Potassium 3.4 mmol/L (3.4-5.0); Sodium 137 mmol/L (137-145)
[2020-12-26 07:37] LABS: Anisocytosis 1+ (NORMAL); Hypochromasia 1+ (NORMAL); Ovalocytes 2+ (NORMAL); Platelet Estimate Adequate (Adequate); Target Cells 1+ (NORMAL)
[2020-12-26] MEDS: MAGNESIUM SULF 2 GM/WATER 50ML 2 GM/50 ML BAG IVPB (10:18)
[2020-12-26] MEDS: polyethylene glycoL 3350 17 GM POWD.PACK PO (10:25)
--- NOTE | 2020-12-26 11:21 | PM.PNGS ---
Progress Note: A&P Assessment and Plan (1) Small bowel obstruction: Onset Date: ~12/21/20 Code(s): K56.609 - Unspecified intestinal obstruction, unspecified as to partial versus complete obstruction Status: Acute Assessment and Plan: Tolerating pureed diet. Will advance her to a low fiber diet. She has been educated on this by the Supervisor Mix[employer]. Would recommend continuing this for 2 weeks after discharge. Will start daily Miralax today. If she does not have a BM this afternoon after lunch, then let the nurse know she could also give her a Dulcolax suppository. Instructed the patient to continue Miralax daily on discharge to help keep her bowels moving regularly - may adjust this according to her bowel habits. If patient continues to tolerate the low fiber diet later today and is moving her bowels, then it is okay from a surgical standpoint to discharge the patient. F/u only as needed. (2) Metastatic colon cancer in female: Onset Date: ~2017 Code(s): C18.9 - Malignant neoplasm of colon, unspecified Status: Acute Assessment and Plan: CT abd/pelvis shows evidence of metastatic colon cancer. Oncology consulted and appreciate their recommendations. Planning to continue Vectibix treatment on discharge. (3) Anemia due to stage 3b chronic kidney disease: Onset Date: Unknown Code(s): N18.32 - Chronic kidney disease, stage 3b; D63.1 - Anemia in chronic kidney disease Status: Acute (4) Hypertension: Code(s): I10 - Essential (primary) hypertension Status: Acute Additional Plan Discussed the patient's plan of care with Dr. Corral. Subjective Subjective Date/Time Seen: 12/26/20 11:21 Patient reports: no new complaints, feels better, tolerating a regular diet (pureed) and flatus Interval history: Patient seen this morning. Tolerating the pureed diet well. No abdominal pain, nausea, vomiting, or bloating. She states she has not had a BM since the night before last, but is passing lots of gas. No other complaints at this time. Review of Systems Review of Systems: All systems reviewed & are unremarkable except as noted in HPI and below Exam Const: General: no acute distress, alert and awake Orientation/consciousness: patient oriented x3 GI: Inspection: non-distended GI Palp: Yes Soft to palpation, No Tenderness to palpation present (GI) and No Guarding due to palpation present (GI) Auscultation: normal bowel sounds Other: Bilateral nephrostomy tubes Skin: General skin exam: normal color Neuro: General: patient oriented x3 and no focal motor deficits Extrem: General: no clubbing, cyanosis or edema Psych: Mental Status: mental status grossly normal Attitude: cooperative Insight: Good insight present (Psych) Judgement: Good judgement present (Psych) Objective Data Vital Signs Vital Signs: Vital Signs - 24 hr 12/25/20 14:03 12/25/20 20:00 12/25/20 22:00 Temperature 98.2 F 98.0 F Pulse Rate 72 63 63 Respiratory Rate 16 16 16 Blood Pressure 119/78 128/73 Pulse Oximetry 100 100 100 12/26/20 06:00 Temperature 97.6 F Pulse Rate 62 Respiratory Rate 18 Blood Pressure 123/69 Pulse Oximetry 100 Intake/Output Intake/Output: Intake & Output 12/23/20 12/24/20 12/25/20 12/26/20 23:59 23:59 23:59 23:59 Intake Total 2680 2255 2870 300 Output Total 1925 1500 755 350 Balance 263 534 0746 -50 Meds/Results Medications: Active Medications Generic Name Dose Route Start Last Admin Trade Name Freq PRN Reason Stop Dose Admin Bisacodyl 5 mg 12/26/20 10:15 Bisacodyl 5 Mg Tablet Ec PO QAM PRN Constipation Dextrose 12.5 gm 12/24/20 08:26 Dextrose 50% 25 Gm/50 Ml Syringe IV PUSH PRN PRN Hypoglycemia Protocol Diphenhydramine HCl 25 mg 12/23/20 16:16 12/25/20 21:13 Diphenhydramine Hcl Inj 50 Mg/Ml Vial IV PUSH 25 mg HS PRN Administration Insomnia Enoxaparin Sodium 57 mg 12/21/20 16:00 12/25/20
--- NOTE | 2020-12-26 11:35 | PCNSR ---
On 12/26/20, the student,Maria Luz Sen, provided care and completed [facility] documentation on this patient. I have reviewed the student's documentation and agree with the findings.
[2020-12-26 14:00] VITALS: BP 148/79; PULSE 71; RESP 18; TEMP 36.5; O2SAT 100
[2020-12-26] MEDS: BISACODYL 10 MG SUPPOSITORY RECTAL (15:21)
--- NOTE | 2020-12-26 16:26 | PM.DS ---
DS: Admitting Diagnosis Admitting Diagnosis Admitting Diagnosis: Small bowel obstruction DS: Discharge Diagnosis Discharge Diagnosis (1) Small bowel obstruction: Onset Date: ~12/21/20 Code(s): K56.609 - Unspecified intestinal obstruction, unspecified as to partial versus complete obstruction Status: Acute Assessment and Plan: Date of Admission 12/21/20 Date of Discharge 12/26/20 Ms. Smith is a 60yo with recurrent metastatic colon cancer, history of small-bowel obstructions, recent right lower extremity DVT for which she is on Eliquis, chronic kidney disease, chronic anemia, hypertension, and congestive heart failure who presented to the ED for evaluation of abdominal pain. CT abd/pelvis showed evidence consistent with small bowel obstruction. She has been receiving immunotherapy under the care of Dr Arango. She has missed a treatment while being admitted here and will resume her treatments upon discharge. She was evaluated by general surgery, Dr Corral, for small bowel obstruction. She was treated with conservative management with NG to suction, bowel rest, and IV hydration. She showed clinical improvement from the therapy outlined above and NG was removed, diet was advanced slowly. She had bowel movements and was passing flatus day of discharge and her abdominal pain was resolved. She was hemodynamically stable for discharge on 12/26/20 with instructions to follow up with primary care and Dr Arango. Patient with recurrent metastatic colon cancer presents with abdominal pain; CT abd/pel was consistent with small bowel obstruction. There is a tumor located near her previous anastomosis site along with other lesions throughout the abdomen detailed in the report below consistent with metastatic cancer however there is not a tumor directly causing the obstruction. Resolved with conservative management. (2) Metastatic colon cancer in female: Onset Date: ~2017 Code(s): C18.9 - Malignant neoplasm of colon, unspecified Status: Acute Assessment and Plan: Diagnosis in 2016, status post colectomy with colostomy and adjuvant chemotherapy with FOLFOX at [facility]. Status post hyperthermic intraperitoneal chemotherapy with debulking surgery in 2018 done in [place]. Status post bilateral nephrostomy tube placement in August 2020 due to extrinsic compression of the ureters from a large tumor, found to be recurrent metastatic cancer. Imaging on 12/21/2020 showed a malignant mass in the sigmoid colon with pelvic lymphadenopathy and multiple peritoneal masses consistent with metastatic disease. She is currently receiving immunotherapy per Dr. Arango. Continue oncology recommendations. Reviewed Dr Arango's note and anticipate she will resume her monoclonal antibody therapy at discharge. (3) Hypokalemia: Code(s): E87.6 - Hypokalemia Status: Resolved Assessment and Plan: Resolved. (4) Elevated lipase: Code(s): R74.8 - Abnormal levels of other serum enzymes Status: Acute Assessment and Plan: Suspect was related to bowel obstruction. No abdominal pain today. (5) Abnormal urinalysis: Code(s): R82.90 - Unspecified abnormal findings in urine Status: Acute Assessment and Plan: Urine culture growing the same organisms as last month. No signs or symptoms of infection. No indication for antibiotics unless she is having signs of infection. (6) Chronic kidney disease: Onset Date: ~03/2020 Qualifiers: Chronic kidney disease stage: stage 3 (moderate) Chronic kidney disease stage 3 subtype: stage 3b (GFR 30-44) Qualified Code(s): N18.32 - Chronic kidney disease, stage 3b Code(s): N18.9
[2020-12-26] MEDS: HEPARIN SOD FLUSH 500 UNITS/5 ML SYRINGE IV PUSH (18:02)
== END 2020-12-26 18:46 | disposition home or self-care (01) | DRG 389 ==
LOC: ANHED 09:49 → ANH2MED 13:42
PROVIDERS: Physician Assistant; Admitting Provider Internal Medicine; Emergency Provider Emergency Medicine; PCP Family Medicine Sports Medicine; Visit Provider Physician Assistant
DX: K56.609 Unspecified intestinal obstruction, unspecified as to partial versus complete obstruction (principal); I82.401 Acute embolism and thrombosis of unspecified deep veins of right lower extremity; I13.0 Hypertensive heart and chronic kidney disease with heart failure and stage 1 through stage 4 chronic kidney disease, or unspecified chronic kidney disease; I50.32 Chronic diastolic (congestive) heart failure; C18.9 Malignant neoplasm of colon, unspecified; C79.89 Secondary malignant neoplasm of other specified sites; D63.8 Anemia in other chronic diseases classified elsewhere; N18.32 Chronic kidney disease, stage 3b; R59.0 Localized enlarged lymph nodes; D50.9 Iron deficiency anemia, unspecified; R82.90 Unspecified abnormal findings in urine; R74.8 Abnormal levels of other serum enzymes; E87.6 Hypokalemia; Z79.01 Long term (current) use of anticoagulants; Z87.891 Personal history of nicotine dependence; Z90.49 Acquired absence of other specified parts of digestive tract; Z90.710 Acquired absence of both cervix and uterus; Z93.6 Other artificial openings of urinary tract status
CPT/HCPCS: 36415; 36430; 74019; 74177; 80048; 80053; 81001; 82378; 82948; 83690; 83735; 85014; 85018; 85025; 85027; 86140; 86850; 86900; 86901; 86922; 87040; 87077; 87086; 87088; 87186; 96361; 96365; 96375; 99285; A9270; J0131; J0696; J1200; J1642; J1650; J1885; J2270; J2405; J3475; J3480; J7050; J7120; P9016; Q5106; Q9967

== ENCOUNTER → 2021-01-01 00:40 | Outpatient (CLI) | payer MEDICARE, MEDICAID, SELFPAY ==
[2021-01-01 19:08] LABS: SARS-CoV-2 RNA PCR Negative
== END ==
PROVIDERS: PCP Family Medicine Sports Medicine; Visit Provider Urology
DX: Z01.812 Encounter for preprocedural laboratory examination (principal); Z20.822 Contact with and (suspected) exposure to COVID-19
CPT/HCPCS: C9803; U0003; U0005

== ENCOUNTER 2021-01-04 10:17 | Outpatient (CLI) | payer MEDICARE, MEDICAID, SELFPAY ==
[2020-12-31 18:31] VITALS: BMI 19.1
--- NOTE | ~2021-01-04 | XR_ITS ---
EXAMINATION: 1. XR nephrostomy tube change 2. XR nephrostomy tube change DATE: 01/04/2021 12:15 INDICATION: Bilateral hydronephrosis. TECHNIQUE: The procedure including the risks, benefits, and alternatives was discussed with the patie nt. Risks discussed included bleeding and infection. The patient understood the risks and benefits an d agreed to proceed. 1 g Ancef IV was given. The skin overlying the kidneys was prepped and draped i n usual sterile fashion. Anesthetic was administered with 1% lidocaine subcutaneously. The left neph rostomy tube was cut and injected with contrast. The tube was exchanged over a Bentson wire for a new 8.5 [place] pigtail catheter under fluoroscopic guidance. The right nephrostomy tube was then cut and injected with contrast. The tube was exchanged over a [employer] wire for a new 8.5 [place] pigtail catheter under fluoroscopic guidance. Fluoroscopy exposure alina e was 1.1 minutes. The total number of images was 11. FINDINGS: Fluoroscopic images demonstrate the new left nephrostomy tube in the renal pelvis. Fluorosc opy images demonstrate the new right nephrostomy tube in the renal pelvis. IMPRESSION: 1. Successful fluoroscopy guided left nephrostomy tube exchange. 2. Successful fluoroscopy guided right nephrostomy tube exchange. Reviewed, dictated and finalized at location A. MACHINE OPERATOR IMPRESSION: 1. Successful fluoroscopy guided left nephrostomy tube exchange. 2. Successful fluoroscopy guided right nephrostomy tube exchange.
[2021-01-04 12:00] VITALS: BP 136/94; PULSE 87; RESP 20
[2021-01-04 12:15] VITALS: BP 126/89; PULSE 83; RESP 12
[2021-01-04 12:30] VITALS: BP 135/82; PULSE 76
[2021-01-04 12:45] VITALS: BP 142/84; PULSE 75; RESP 20
== END 2021-01-04 13:00 | disposition home or self-care (01) ==
PROVIDERS: Radiology Diagnostic Radiology; PCP Family Medicine Sports Medicine; Visit Provider Urology
DX: N13.30 Unspecified hydronephrosis (principal)
CPT/HCPCS: 50435; C1769; J0690; Q9966

== ENCOUNTER 2021-01-08 09:56 | Outpatient (RCR) | payer MEDICARE, MEDICAID, SELFPAY ==
[2021-01-08] VITALS (9 sets, daily range): BP systolic 139–163; BP diastolic 82–93; PULSE 71–86; RESP 14–19; TEMP 36.4–36.8; O2SAT 100
[2021-01-08] MEDS: diphenhydrAMINE HCl CAP 25 MG CAPSULE PO (12:18)
[2021-01-08] MEDS: ACETAMINOPHEN 325 MG TABLET 650 MG PO (12:18)
[2021-01-08] MEDS: FUROSEMIDE INJ 40 MG/4 ML VIAL 20 MG IV PUSH (14:46)
--- NOTE | 2021-01-08 16:25 | PC.NURSE ---
Pt ambulated to bathroom with assist. Approx 400ml clear light yellow urine drained from nephrostomy tube
== END 2021-04-08 23:59 | disposition home or self-care (01) ==
LOC: ANHCPCTRAN 09:56
PROVIDERS: PCP Family Medicine Sports Medicine; Visit Provider Internal Medicine Hematology & Oncology
DX: D64.9 Anemia, unspecified (principal)
CPT/HCPCS: 36415; 36430; 86922; 96374; A9270; J1940; P9016

== ENCOUNTER 2021-01-10 13:17 | Outpatient (CLI) | payer MEDICARE, MEDICAID, SELFPAY ==
[2021-01-10 14:37] LABS: Albumin Level 2.5 g/dL (3.5-5.1); Anion Gap 9 mmol/L (8-16); Blood Urea Nitrogen 79 mg/dL (7-17); Calcium 8.1 mg/dL (8.4-10.2); Carbon Dioxide 27 mmol/L (22-30); Chloride 103 mmol/L (98-107); Estimated Glomerular Filt Rate 16; Glucose 134 mg/dL (65-105); Phosphorus 3.1 mg/dL (2.5-4.5); Sodium 139 mmol/L (137-145)
[2021-01-10 15:06] LABS: Eosinophil Urine None Seen % (None Seen)
[2021-01-10 15:10] LABS: Creatinine Urine 34.5 mg/dL
[2021-01-10 15:15] LABS: Sodium Urine Random 88 meq/L
[2021-01-14 16:31] LABS: Chloride Rand Ur 82 mmol/L (32-290); Chloride/Creatinine Rand Ur 228 (38-318); Creatinine Random Urine 36 mg/dL (20-275)
== END 2021-01-10 13:18 | disposition home or self-care (01) ==
LOC: ANHLAB 13:22
PROVIDERS: PCP Family Medicine Sports Medicine; Visit Provider Internal Medicine Nephrology
DX: N17.8 Other acute kidney failure (principal); N18.30 Chronic kidney disease, stage 3 unspecified
CPT/HCPCS: 36415; 80069; 82436; 82570; 84300; 85999

== ENCOUNTER 2021-01-18 21:03 | Inpatient (IN) | payer MEDICARE, MEDICAID, SELFPAY ==
--- NOTE | ~2021-01-18 | US_ITS ---
EXAMINATION: US venous doppler [facility] DATE: 01/19/2021 09:33 INDICATION: Asymmetric lower limb swelling TECHNIQUE: Grayscale ultrasound images without and with compression and Doppler ultrasound images of the bilateral lower extremity veins were obtained. COMPARISON: None. FINDINGS: The visualized portions of right common femoral vein, profunda (deep) femoral vein, femoral vein, pop liteal vein, posterior tibial veins, peroneal veins, gastrocnemius vein and greater saphenous vein ou tflow are patent. The visualized portions of left common femoral vein, profunda femoral vein, femoral vein, popliteal v ein, posterior tibial veins, peroneal veins, gastrocnemius vein and greater saphenous vein outflow ar e patent. IMPRESSION: 1. No deep venous thrombosis in either lower limb. Reviewed, dictated and finalized at location A.
--- NOTE | ~2021-01-18 | CT_ITS ---
EXAMINATION: CT abdomen wo con EXAM DATE: 01/23/2021 14:33 INDICATION: Anasarca. Bleeding. Mesenteric masses, sigmoid mass distal to anastomosis, pelvic lymphad enopathy. TECHNIQUE: Spiral CT of the abdomen was performed without contrast. Axial, coronal and sagittal bridget ges were reviewed. The dose-length product (DLP) for this examination was 528.86 mGy-cm. The exposu re was tailored according to patient size (auto mA exposure control), and iterative reconstruction (A SIR) was used as additional dose reduction technique. Comparison is made to prior examination from . FINDINGS: No evidence of retroperitoneal hemorrhage. There is cardiomegaly and small pericardial effu adalid. Small to moderate right, small left pleural effusions. Nearly complete collapse of the left low er lobe and multisegmental atelectasis of the right lower lobe. Also, interval development of anasarc a. Left liver lobe lateral segmental hypodense region is unchanged measuring 3 cm. Pancreas, spleen, adr enal glands are unremarkable. There are bilateral nephrostomy tubes in expected position. There is mo derate to severe chronic right renal atrophy. Left renal 3 cm cyst unchanged. No hydronephrosis. There is moderate amount of stomach contents and colonic stool. No small bowel obstruction. No free i ntraperitoneal gas. Previously described mesenteric masses are poorly visualized on this noncontrast study, and due to the extensive generalized fat stranding. There are no osteoblastic or osteolytic le sions identified. IMPRESSION: 1. Interval development of cardiomegaly, small pericardial effusion, small to moderate right and sma ll left pleural effusions, and extensive generalized fat stranding, anasarca. 2. No free intraperitoneal air or retroperitoneal hemorrhage. 3. Nephrostomy tubes in position. Reviewed, dictated and finalized at location A. IMPRESSION: 1. Interval development of cardiomegaly, small pericardial effusion, small to moderate right and small left pleural effusions, and extensive generalized fat stranding, anasarca. 2. No free intraperitoneal air or retroperitoneal hemorrhage. 3. Nephrostomy tubes in position.
--- NOTE | ~2021-01-18 | CT_ITS ---
EXAMINATION: CT brain wo con DATE: 01/18/2021 22:45 INDICATION: Altered mental state TECHNIQUE: Computed tomography (CT) of the head was performed without intravenous contrast. The mA wa s adjusted according to patient size. Iterative reconstruction technique was employed. Exam dose: 60 5.33 mGy-cm total exam DLP. COMPARISON: None FINDINGS: No intracranial mass lesion or hemorrhage or cerebrovascular accident is detected. No midli ne shift or mass effect. No subdural or epidural hematoma. There is nonspecific diminished attenuation of the cerebral white matter, likely due to chronic small vessel ischemic changes. There is moderately prominent central and cortical cerebral and cerebellar atrophy. Included paranasal sinuses and mastoid air cells are normally developed and aerated. No fracture or bone destruction of the cranial vault. IMPRESSION: No acute intracranial abnormality Nonspecific diminished attenuation of the cerebral white matter, likely due to chronic small vessel i schemic changes Cerebral and cerebellar volume loss Reviewed, dictated and finalized at Location A. Reviewed, dictated and finalized at location A. IMPRESSION: No acute intracranial abnormality Nonspecific diminished attenuation of the cerebral white matter, likely due to chronic small vessel ischemic changes Cerebral and cerebellar volume loss
--- NOTE | ~2021-01-18 | XR_ITS ---
XR chest 1V portable DATE: 01/18/2021 22:22 INDICATION: Transient alteration of awareness for 2 days TECHNIQUE: Portable AP chest on 01/18/2021 at 2220 hours COMPARISON: 09/17/2020 portable AP chest at 2325 hours FINDINGS: There is cardiomegaly. There is mild aortic unfolding. No hilar or mediastinal enlargement. Mild infiltrate or atelectasis is suggested in the left retrocardiac area, left lower lobe and right lung base. The lungs otherwise appear clear. Right Port-A-Cath catheter tip situated near superior cavoatrial junction. No pneumothorax. No pleura l effusion. Diffuse osteopenia. IMPRESSION: Mild infiltrate or atelectasis in the lower lung zones Cardiac megaly Right Port-A-Cath Reviewed, dictated and finalized at location A.
--- NOTE | 2021-01-18 21:29 | ECG_ITS ---
Measurements Intervals [place] Rate: 74 P: 44 WI: 190 QRS: -52 QRSD: 81 T: 29 QT: 405 QTc: 451 Interpretive Statements SINUS RHYTHM INCOMPLETE RIGHT BUNDLE BRANCH BLOCK LOW QRS VOLTAGE IN PRECORDIAL LEADS CONSIDER ANTERIOR INFARCT, AGE INDETERMINATE INFERIOR INFARCT, AGE INDETERMINATE T WAVE ABNORMALITY IN ANTEROSEPTAL LEADS- CONSIDER ISCHEMIA BASELINE ARTIFACT- I, II, AVR ABNORMAL ECG Electronically Signed On 01-19-2021 7:36:11 CDT by Arnulfo Zaragoza D.O.
[2021-01-18 21:36] VITALS: BP 144/86; PULSE 66; RESP 20; TEMP 36.8; O2SAT 100
[2021-01-18 21:50] LABS: Alveolar/Arterial O2 Gradient 20.4 mmHg; Base Excess ABG -0.5 mEq/l (+/-2.0); Fractional Inspired Oxygen 21 %; HCO3 ABG 22.2 mEq/l (22.0-26.0); Oxygen Content ABG 9.9 %vol (16.0-22.0); Oxygen Saturation ABG 97.9 % (95.0-100.0); Oxyhemoglobin 94.9 % THb (90.0-100.0); PCO2 ABG 28.3 mmHg (35.0-45.0); PO2 ABG 95.4 mmHg (80.0-100.0); PO2 FiO2 Ratio Arterial Blood 4.54 %
[2021-01-18 21:51] LABS: Total Hemoglobin 7.3 g/dL (12.0-18.0); pH ABG 7.512 (7.350-7.450)
[2021-01-18 21:52] LABS: Device ROOM AIR; Modified Allen's Test Unable to perform; Site Drawn RIGHT RADIAL
--- NOTE | 2021-01-18 22:02 | ED.GENADULT ---
HPI - General Adult General Chief complaint: Altered Mental Status Stated complaint: altered mental status Time Seen by Provider: 01/18/21 21:15 Source: family Limitations: altered mental status and clinical condition History of Present Illness HPI narrative: Patient is 60 years old -Micron[place] female brought to the emergency room by her daughter who is telling me that patient been unresponsive, unable to eat or drink, for the last 48 hours. Also telling me that patient had no sleep for 3 days on arrival after having immunotherapy medication 7 days ago.. History of colon cancer with metastasis, stage III, ureteral obstruction, bilateral nephrostomy. The daughter telling me that patient does not have fever, chills, nausea or vomiting. Normally patient is able to walk and talk without budget assistant. Related Data Home Medications Medication Instructions Recorded Confirmed Eliquis 5 mg PO BID 12/10/20 01/14/21 furosemide 20 mg PO DAILY 12/10/20 01/14/21 magnesium 1 cap PO DAILY 12/31/20 01/14/21 Allergies Allergy/AdvReac Type Severity Reaction Status Date / Time lisinopril Allergy Swelling Verified 01/18/21 21:45 hydrocodone AdvReac Intermediate Nausea and Verified 01/18/21 21:45 Vomiting tramadol AdvReac Intermediate Nausea and Verified 01/18/21 21:45 Vomiting codeine AdvReac Mild Nausea and Verified 01/18/21 21:45 Vomiting penicillin G AdvReac Mild Nausea and Verified 01/18/21 21:45 Vomiting Sulfa (Sulfonamide AdvReac Mild Nausea and Verified 01/18/21 21:45 Antibiotics) Vomiting potassium AdvReac Swelling Verified 01/18/21 21:45 of Lip/Tongue/Throat Review of Systems Review of Systems: ROS unobtainable: Yes unobtainable due to medical condition [facility] Past Medical History Medical History Anemia of chronic disease Anxiety Chronic kidney disease (~03/2020) Baseline creatinine is between 2.0 and 2.40. Congestive heart failure Grade 1 diastolic dysfunction with an EF of 55-60%. Deep vein thrombosis of right lower extremity History of small bowel obstruction Hypertension Metastatic colon cancer in female (~2017) Diagnosis in 2016, status post colectomy with colostomy and adjuvant chemotherapy with FOLFOX. Status post hyperthermic intraperitoneal chemotherapy with debulking surgery in 2018 done in [place]. Status post bilateral nephrostomy tube placement in August 2020 due to extrinsic compression of the ureters from a large tumor, found to be recurrent metastatic cancer. Imaging on 12/21/2020 showed a malignant mass in the sigmoid colon with pelvic lymphadenopathy and multiple peritoneal masses consistent with metastatic disease. She is currently receiving immunotherapy per Dr. Arango. Moderate aortic regurgitation Port-A-Cath in place Surgical History Surgical History History of bone marrow biopsy History of laparotomy (~2017) Debulking surgery for metastatic colon cancer. History of nephrostomy Bilateral nephrostomy tube placement secondary to extrinsic compression of the ureters from malignant colon cancer. History of partial colectomy (~2015) With colostomy and subsequent takedown. History of total abdominal hysterectomy and bilateral salpingo-oophorectomy As part of debulking surgery for recurrent colon cancer as detailed above. History of tubal ligation Family History Family History Grandparent Cerebrovascular accident Pancreas cancer Lung cancer Mother Colon cancer Social History Social History Social History: Patient lives alone in her own home in [place]. She is and has 5 children. She is now on disability. She smoked socially for a few years in her mid 20s. Marijuana use in her younger days. No alcohol or illicit substance use at this time
[2021-01-18] MEDS: SODIUM CHLORIDE 0.9% IV 1,000 ML 999 ML IV CONT (22:24)
[2021-01-18 22:44] LABS: Add Urine Microscopic? YES; Appearance Urine Turbid (Clear); Bacteria Urine 1+ /hpf; Bilirubin Urine Negative (Negative); Blood Urine 2+ (Negative); Color Urine Amber (Yellow); Glucose Urine UA Negative (Negative); Ketones Urine Negative (Negative); Leukocyte Esterase Ur 3+ LEU/UL (Negative); Mucus Urine Rare /lpf; Nitrate Urine Negative (Negative); Protein Urine 3+ mg/dL (Negative); RBC Urine 21-50 /hpf (0-2); Specific Grav Ur 1.012 (1.001-1.035); Urobilinogen Urine Negative mg/dL (<2.0); WBC Urine >75 /hpf
[2021-01-18 22:49] LABS: Basophils Percent Auto 0.1 % (0.2-1.2); Eosinophils Percent Auto 0.2 % (0-4.4); Hematocrit 21.7 % (37.0-47.0); Hemoglobin 7.1 g/dL (12.0-15.0); Immature Granulocyte Absolute 0.12 K/mm3 (0.00-0.031); Immature Granulocyte Percent A 1.1 % (0-0.5); Lymphocytes Absolute Auto 0.95 K/mm3 (0.9-3.2); Lymphocytes Percent Auto 8.7 % (18.3-44.2); Mean Corpuscular HGB Conc 32.7 g/dl (32-36); Mean Corpuscular Volume 91.6 fl (80-100); Monocytes Absolute Auto 0.4 K/mm3 (0.1-0.6); Neutrophils Absolute Auto 9.4 K/mm3 (1.3-6.7); Neutrophils Percent Auto 85.9 % (45.5-73.1); Platelet Count Result 120 k/mm3 (150-375); Red Blood Count 2.37 M/mm3 (4.2-5.4); Red Cell Distribution Width 15.6 % (11.5-14.5)
[2021-01-18 22:56] LABS: Partial Thromboplastin Time 24.9 SECONDS (22.3-36.8); Prothrombin Time 13.8 Seconds (11.1-14.7)
[2021-01-18 22:56] LABS: Amphetamine Screen Urine Negative (Negative); Barbiturate Screen Urine Negative (Negative); Benzodiazepines Screen Urine Negative (Negative); Cannabinoid Screen Urine Negative (Negative); Cocaine Screen Urine Negative (Negative); Methadone Screen Urine Negative (Negative); Opiate Screen Urine Negative (Negative); Phencyclidine Screen Urine Negative (Negative)
[2021-01-18 23:02] LABS: Alanine Aminotransferase 11 U/L (4-35); Alkaline Phosphatase 63 U/L (38-126); Anion Gap 4 mmol/L (8-16); Aspartate Amino Transferase 20 U/L (14-36); Bilirubin,Total 0.4 mg/dL (0.2-1.3); Blood Urea Nitrogen 50 mg/dL (7-17); Calcium 7.7 mg/dL (8.4-10.2); Carbon Dioxide 23 mmol/L (22-30); Chloride 110 mmol/L (98-107); Estimated CRCL calculation 19 ml/min; Estimated Glomerular Filt Rate 24; Glucose 62 mg/dL (65-105); Potassium 3.3 mmol/L (3.4-5.0); Sodium 137 mmol/L (137-145)
[2021-01-18] MEDS: DEXTROSE 50% 25 GM/50 ML SYRINGE IV PUSH (23:39)
[2021-01-18 23:41] VITALS: BP 192/101; PULSE 72; RESP 20; O2SAT 100
[2021-01-18 23:42] VITALS: PULSE 71; RESP 19; O2SAT 100
[2021-01-18 23:45] VITALS: PULSE 68; RESP 17; O2SAT 100
[2021-01-18 23:46] VITALS: BP 200/108; PULSE 69; RESP 18; O2SAT 100
[2021-01-18 23:47] VITALS: PULSE 68; RESP 17; O2SAT 100
[2021-01-19] VITALS (28 sets, daily range): BP systolic 122–202; BP diastolic 65–117; PULSE 57–82; RESP 14–22; TEMP 36.5–37.3; O2SAT 100; BMI 18.9
[2021-01-19] MEDS: LABETALOL HCL INJ 100 MG/20 ML VIAL 20 MG IV PUSH (00:32)
[2021-01-19] MEDS: SODIUM CHLORIDE 0.9% IV 1,000 ML 125 ML IV CONT (02:09)
--- NOTE | 2021-01-19 02:14 | ADMGEN ---
This patient, Dina Smith, was admitted to Medical Room 254-01. Patient/family oriented to hospital policies and general routines including ID bracelet, bed and alarms, visiting hours, pain management, procedures, bathroom and other care routines, personal items, smoking policy, room service/diet, and visiting hours. Information on how to activate the Rapid Response Team has been discussed. Patient/Family are encouraged to report perceived risks to care and to ask questions if they do not understand what they are told or what they should do.
[2021-01-19 04:16] LABS: Glucose Point of Care 123 (65-105)
--- NOTE | 2021-01-19 05:02 | PM.IMHP ---
H&P: HPI History of Present Illness Date/Time: 01/19/21 05:02 Chief Complaint: Getting sleepy and hallucinating Narrative: 60-year-old female with a past medical history of stage III colon cancer, right lower extremity DVT on Eliquis, chronic kidney disease, chronic anemia and CHF and bilateral nephrostomy tubes due to extrinsic outlet obstruction who presented to the ER due to altered mental status. The patient's daughter reported to the ER staff that the patient had immunotherapy 5 days ago. Subsequently the patient did not sleep for 3 consecutive days. On evening the patient was noted to be getting sleepy and was having hallucinations. The patient's daughter called Dr. khris cordero office who told the family that her hallucinations were due to insomnia. However today the patient was slow to respond. The patient will intermittently shake her head yes or no. Otherwise patient is staring straight ahead and will only intermittently follow commands. She would not lift her arms from the bed but if her arm was lifted from the bed for her she would hold her arm out insults he was told to put her arm down. The patient does not respond verbally to me at the time of my evaluation. When I ask her if she is having pains she will nod her head but will not indicate where she is having pain. When I asked the patient to stick her tongue out she simply stares straight ahead at me. At the time that the patient arrived to the medical floor the patient cried out. She was able to communicate to the nursing staff that she felt like she was choking. Evidently the patient had choked on some liquids a few days ago and now becomes agitated and feels like she is choking. The patient was sitting up in bed at 90? at the time of my evaluation. The patient has bilateral nephrostomy tubes in place and her urine appears to be for grossly purulence. Patient had urostomy tubes placed in August 2020 due to extrinsic compression the ureters from large tumor burden. Patient subsequently has chronic kidney disease but her creatinine today is improved from prior values. Nursing staff reports significantly more a urine output of the left nephrostomy tube than on the right. The patient's nephrostomy tubes were exchanged 01/04/2021. Review of Systems Review of Systems: ROS unobtainable: Yes unobtainable due to mental status PMFSH Past Medical History Medical History Anemia of chronic disease Anxiety Chronic kidney disease (~03/2020) Baseline creatinine is between 2.0 and 2.40. Congestive heart failure Grade 1 diastolic dysfunction with an EF of 55-60%. Deep vein thrombosis of right lower extremity History of small bowel obstruction Hypertension Metastatic colon cancer in female (~2017) Diagnosis in 2015, status post colectomy with colostomy and adjuvant chemotherapy with FOLFOX. Status post hyperthermic intraperitoneal chemotherapy with debulking surgery in 2017 done in [place]. Status post bilateral nephrostomy tube placement in August 2020 due to extrinsic compression of the ureters from a large tumor, found to be recurrent metastatic cancer. Imaging on 12/21/2020 showed a malignant mass in the sigmoid colon with pelvic lymphadenopathy and multiple peritoneal masses consistent with metastatic disease. She is currently receiving immunotherapy per Dr. Arango. Moderate aortic regurgitation Port-A-Cath in place Surgical History Surgical History History of bone marrow biopsy History of laparotomy (~2017) Debulking surgery for metastatic colon cancer. History of nephrostomy Bilateral nephrostomy tube placement secondary to extrinsic compression of the ureters from malignant colon cancer. History of partial colectomy (~2015) With colostomy and subsequent takedown. History of total abdominal hysterectomy and bilateral salpingo-oophorectomy As part of debulking
[2021-01-19] MEDS: DEXTROSE 5%/0.9% SOD CHL 1,000 ML 125 ML IV CONT ×2 (05:15→18:06)
[2021-01-19 06:35] LABS: Anion Gap 4 mmol/L (8-16); Blood Urea Nitrogen 43 mg/dL (7-17); Calcium 7.5 mg/dL (8.4-10.2); Carbon Dioxide 24 mmol/L (22-30); Chloride 110 mmol/L (98-107); Estimated CRCL calculation 19 ml/min; Estimated Glomerular Filt Rate 26; Glucose 107 mg/dL (65-105); Sodium 138 mmol/L (137-145)
[2021-01-19 06:39] LABS: Mean Corpuscular Volume 90.6 fl (80-100); Mean Platelet Volume 9.9 fl (7.4-10.4); Platelet Count Result 119 k/mm3 (150-375); Red Blood Count 2.24 M/mm3 (4.2-5.4); Red Cell Distribution Width 15.7 % (11.5-14.5); White Blood Count 9.4 K/mm3 (4.5-10.0)
[2021-01-19 06:57] LABS: Hemoglobin 6.5 g/dL (12.0-15.0)
[2021-01-19 06:58] LABS: Hematocrit 20.3 % (37.0-47.0)
--- NOTE | 2021-01-19 09:40 | PCSTNOTE ---
Pt. experienced unresponsive episode this morning. Spoke with nursing/radiology. MBS and communication evaluation on hold. Will check pt. status/ability to tolerate evaluations on 01/20/21.
[2021-01-19] MEDS: SODIUM CHLORIDE 0.9% IV 250 ML 30 ML IV CONT (11:10)
--- NOTE | 2021-01-19 11:21 | PC.NURSE ---
NS on hold while blood infusing
[2021-01-19 12:32] LABS: Glucose Point of Care 133 (65-105)
--- NOTE | 2021-01-19 14:56 | PM.IMPN ---
Progress Note: A&P Assessment and Plan (1) Metastatic colon cancer in female: Onset Date: ~2017 Code(s): C18.9 - Malignant neoplasm of colon, unspecified Status: Acute Assessment and Plan: patient with end-stage colon cancer on palliative treatment will discuss advanced directives with her daughter (2) Acute metabolic encephalopathy: Code(s): G93.41 - Metabolic encephalopathy Status: Acute Assessment and Plan: likely secondary to terminal illness supportive care (3) Chronic kidney disease: Onset Date: ~03/2020 Qualifiers: Chronic kidney disease stage: stage 3 (moderate) Chronic kidney disease stage 3 subtype: stage 3b (GFR 30-44) Qualified Code(s): N18.32 - Chronic kidney disease, stage 3b Code(s): N18.9 - Chronic kidney disease, unspecified Status: Chronic Assessment and Plan: patient is status post bilateral nephrostomy due to obstructive uropathy secondary to tumor burden continue local care Subjective Date/time seen: 01/19/21 14:56 patient mumbles unintelligible words for the most part unresponsive is staring up Review of Systems Review of Systems: ROS unobtainable: Yes unobtainable due to medical condition Exam Const: General: comfortable, no acute distress, well developed and ill appearing Nutritional Appearance: thin Orientation/consciousness: lethargic HENMT: Head: normal to inspection, normocephalic, atraumatic and other ( bilateral temporal muscle wasting) Ears: hearing grossly normal bilaterally Face and sinus: normal facial exam Eyes: General: appearance normal, both eyes and all related structures Pupils: Equal, round and reactive pupils present EOM: EOMs intact bilaterally Neck: Neck: full ROM, no lymphadenopathy and no JVD Thyroid: thyroid normal Lymphatic: no lymphadenopathy noted Resp: Effort & Inspection: normal respiratory effort and able to speak in complete sentences Auscultation: clear to auscultation bilaterally Cardio: Jugular venous distension: no JVD Rate: regular rate Rhythm: regular rhythm Heart sounds: S1 normal heart sound present and S2 normal heart sound present GI: GI Palp: Yes Soft to palpation, Yes Tenderness to palpation present (GI) ( patient grimaces to palpation) and Yes No hepatosplenomegaly present : General: Yes deferred Skin: Rashes: no rashes Wounds: no wounds Neuro: General: CN's II-XI intact bilaterally and other ( lethargy) Cranial nerves: Yes CN's II-XII intact bilaterally and Yes Equal, round and reactive pupils present Cognition (Neuro): abnormal cognition ( lethargy) Extrem: General: normal to inspection, full ROM, no joint enlargement, edema bilateral and other Objective Data Vital Signs Vital Signs: Vital Signs - 24 hr 01/18/21 21:36 01/18/21 23:41 01/18/21 23:42 Temperature 98.2 F Pulse Rate 66 72 71 Respiratory Rate 20 20 19 Blood Pressure 144/86 H 192/101 H Pulse Oximetry 100 100 100 01/18/21 23:45 01/18/21 23:46 01/18/21 23:47 Temperature Pulse Rate 68 69 68 Respiratory Rate 17 18 17 Blood Pressure 200/108 H Pulse Oximetry 100 100 100 01/19/21 00:00 01/19/21 00:01 01/19/21 00:15 Temperature Pulse Rate 71 73 73 Respiratory Rate 17 17 18 Blood Pressure 202/105 H Pulse Oximetry 100 100 100 01/19/21 00:16 01/19/21 00:30 01/19/21 00:31 Temperature Pulse Rate 74 82 Respiratory Rate 20 21 H 20 Blood Pressure 188/110 H 198/112 H Pulse Oximetry 100 100 01/19/21 00:32 01/19/21 00:40 01/19/21 00:45 Temperature Pulse Rate 78 65 64 Respiratory Rate 19 18 Blood Pressure 179/108 H Pulse Oximetry 100 100 01/19/21 00:46 01/19/21 01:00 01/19/21 01:01 Temperature Pulse Rate 65 63 61 Respiratory Rate 19 16 16 Blood Pressure 173/112 H 176/105 H Pulse Oximetry 100 100 100 01/19/21 01:15 01/19/21 01:16 01/19/21 01:30 Temperature Pulse Rate 65 64 Respiratory Rate 22 H 14 16 Blood Pres
[2021-01-19 16:54] LABS: Glucose Point of Care 123 (65-105)
[2021-01-19 21:58] LABS: Glucose Point of Care 162 (65-105)
[2021-01-20] VITALS (7 sets, daily range): BP systolic 120–153; BP diastolic 71–79; PULSE 58–88; RESP 16–21; TEMP 36.5–37.4; O2SAT 99–100
[2021-01-20] MEDS: DEXTROSE 5%/0.9% SOD CHL 1,000 ML 125 ML IV CONT ×2 (03:11→11:39)
[2021-01-20 06:53] LABS: Glucose Point of Care 148 (65-105)
--- NOTE | 2021-01-20 11:03 | PM.IMPN ---
Progress Note: A&P Assessment and Plan (1) Metastatic colon cancer in female: Onset Date: ~2017 Code(s): C18.9 - Malignant neoplasm of colon, unspecified Status: Acute Assessment and Plan: Really poor prognosis Discussed with daughter who is at bedside is states that her mother has an infection and she will be fine Discussed advanced directives Ms. Smith wants to remain a full code (2) CKD (chronic kidney disease): Code(s): N18.9 - Chronic kidney disease, unspecified Status: Acute Assessment and Plan: Continue to monitor Daily BMP Avoid nephrotoxics (3) Anemia due to stage 3b chronic kidney disease: Onset Date: Unknown Code(s): N18.32 - Chronic kidney disease, stage 3b; D63.1 - Anemia in chronic kidney disease Status: Acute Assessment and Plan: Transfuse as Continue to monitor Patient received 1 unit of packed red blood cell (4) Bilateral hydronephrosis: Code(s): N13.30 - Unspecified hydronephrosis Status: Acute Assessment and Plan: Secondary to obstructive uropathy secondary to tumor burden Is status post bilateral nephrostomy Continue nephrostomy care (5) UTI (urinary tract infection): Qualifiers: Hematuria presence: without hematuria Urinary tract infection type: site unspecified Qualified Code(s): N39.0 - Urinary tract infection, site not specified Code(s): N39.0 - Urinary tract infection, site not specified Status: Acute Assessment and Plan: Patient growing Enterococcus Patient also with Pseudomonas in the past Will obtain a consult with Infectious Disease for antibiotic choice of as multiple resistance organisms present (6) Congestive heart failure: Qualifiers: Heart failure type: diastolic Heart failure chronicity: chronic Qualified Code(s): I50.32 - Chronic diastolic (congestive) heart failure Code(s): I50.9 - Heart failure, unspecified Status: Chronic Assessment and Plan: Does not appear to be decompensated Continue to monitor Intake and output balance daily (7) Acute metabolic encephalopathy: Code(s): G93.41 - Metabolic encephalopathy Status: Acute Assessment and Plan: a mix of endocrine metabolic and toxic due to tumor burden and urinary tract infection Supportive care Patient more lucid today (8) Lower extremity edema: Code(s): R60.0 - Localized edema Status: Acute Assessment and Plan: A mix of dependent edema and hypoproteinemia secondary to protein calorie malnutrition secondary to tumor burden Subjective Date/time seen: 01/20/21 11:03 I hurt all over Review of Systems Review of Systems: Narrative: Patient very debilitated. ROS unobtainable: Yes unobtainable due to medical condition Exam Narrative: Exam Narrative: Patient is emaciated terminally ill looking. Const: General: comfortable, well developed, alert, awake and ill appearing Nutritional Appearance: cachectic Orientation/consciousness: patient oriented x3 HENMT: Head: normal to inspection, normocephalic and atraumatic Ears: hearing grossly normal bilaterally Face and sinus: normal facial exam Eyes: General: appearance normal, both eyes and all related structures Pupils: Equal, round and reactive pupils present EOM: EOMs intact bilaterally Neck: Neck: full ROM, no lymphadenopathy and no JVD Thyroid: thyroid normal Lymphatic: no lymphadenopathy noted Resp: Effort & Inspection: normal respiratory effort and able to speak in complete sentences Auscultation: clear to auscultation bilaterally Cardio: Jugular venous distension: no JVD Rate: regular rate Rhythm: regular rhythm Heart sounds: S1 normal heart sound present and S2 normal heart sound present GI: GI Palp: Yes Soft to palpation, Yes Tenderness to palpation present (GI) and Yes No hepatosplenomegaly present : General: Yes deferred Skin: Rashes: no rashes Wounds: no w
--- NOTE | 2021-01-20 11:09 | PCSTNOTE ---
Bedside swallow evaluation complete. Please see ST evaluation for more details and recommendations.
[2021-01-20] MEDS: oxyCODONE/ACETAMINOPHEN (*CRX) 5-325 MG TABLET 1 TABLET PO ×2 (12:20→21:02)
[2021-01-20 12:41] LABS: Hematocrit 27.7 % (37.0-47.0); Hemoglobin 9.2 g/dL (12.0-15.0); Mean Corpuscular HGB Conc 33.2 g/dl (32-36); Mean Corpuscular Hemoglobin 30.3 pg (26-34); Mean Corpuscular Volume 91.1 fl (80-100); Mean Platelet Volume 9.7 fl (7.4-10.4); Platelet Count Result 143 k/mm3 (150-375); Red Blood Count 3.04 M/mm3 (4.2-5.4); Red Cell Distribution Width 15.4 % (11.5-14.5); White Blood Count 9.1 K/mm3 (4.5-10.0)
[2021-01-20 13:20] LABS: Anion Gap 4 mmol/L (8-16); Blood Urea Nitrogen 30 mg/dL (7-17); Carbon Dioxide 23 mmol/L (22-30); Chloride 117 mmol/L (98-107); Estimated CRCL calculation 21 ml/min; Estimated Glomerular Filt Rate 29; Glucose 137 mg/dL (65-105); Potassium 2.9 mmol/L (3.4-5.0); Sodium 144 mmol/L (137-145)
[2021-01-20 18:02] LABS: Glucose Point of Care 124 (65-105)
[2021-01-20] MEDS: CENTRAL LINE FLUSH 10 ML IV PUSH (20:59)
[2021-01-21 06:00] VITALS: BP 141/76; PULSE 62; RESP 21; TEMP 36.6; O2SAT 100
[2021-01-21 06:00] LABS: Estimated CRCL calculation 22 ml/min; Estimated Glomerular Filt Rate 31
[2021-01-21] MEDS: DEXTROSE 5%/0.9% SOD CHL 1,000 ML 125 ML IV CONT ×2 (06:18→16:52)
[2021-01-21] MEDS: CENTRAL LINE FLUSH 10 ML IV PUSH ×3 (06:19→20:44)
[2021-01-21 07:42] LABS: Glucose Point of Care 100 (65-105)
[2021-01-21 08:00] VITALS: BP 140/85; PULSE 67; RESP 16; TEMP 36.6; O2SAT 95
[2021-01-21] MEDS: oxyCODONE/ACETAMINOPHEN (*CRX) 5-325 MG TABLET 1 TABLET PO ×2 (09:36→17:08)
[2021-01-21 09:43] LABS: Hematocrit 29.2 % (37.0-47.0); Hemoglobin 9.7 g/dL (12.0-15.0); Mean Corpuscular HGB Conc 33.2 g/dl (32-36); Mean Corpuscular Hemoglobin 29.9 pg (26-34); Mean Corpuscular Volume 90.1 fl (80-100); Mean Platelet Volume 9.9 fl (7.4-10.4); Platelet Count Result 136 k/mm3 (150-375); Red Blood Count 3.24 M/mm3 (4.2-5.4); White Blood Count 9.8 K/mm3 (4.5-10.0)
[2021-01-21 09:56] LABS: Anion Gap 2 mmol/L (8-16); Blood Urea Nitrogen 25 mg/dL (7-17); Carbon Dioxide 21 mmol/L (22-30); Chloride 116 mmol/L (98-107); Estimated CRCL calculation 23 ml/min; Estimated Glomerular Filt Rate 33; Glucose 104 mg/dL (65-105); Magnesium 1.5 mg/dL (1.6-2.3); Potassium 3.1 mmol/L (3.4-5.0); Sodium 139 mmol/L (137-145)
[2021-01-21] MEDS: MAGNESIUM SULF 2 GM/WATER 50ML 2 GM/50 ML BAG IVPB (10:36)
[2021-01-21 10:39] VITALS: BMI 18.9
--- NOTE | 2021-01-21 12:02 | PCNSR ---
On 01/21/21, the student, Maria Luz Sen, provided care and completed [facility] documentation on this patient. I have reviewed the student's documentation and agree with the findings.
[2021-01-21 12:27] LABS: Glucose Point of Care 137 (65-105)
[2021-01-21 14:00] VITALS: BP 135/62; PULSE 82; RESP 18; TEMP 36.2; O2SAT 100
--- NOTE | 2021-01-21 14:37 | PM.IMPN ---
Progress Note: A&P Assessment and Plan (1) Metastatic colon cancer in female: Onset Date: ~2017 Code(s): C18.9 - Malignant neoplasm of colon, unspecified Status: Acute Assessment and Plan: Really poor prognosis Discussed with daughter who is at bedside is states that her mother has an infection and she will be fine Discussed advanced directives Ms. Smith wants to remain a full code 01/21/21 14:37 Patient is 60 female with hx of stage III colon cancer, right lower extremity DVT on eliquis, chronic kidney disease and b/l nephrostomy tubes 2/2 obstruction due to tumor, patient recently received immunotherapy and developed insomnia was not able to sleep for 3 days resulting in hallucinations and confusion, also pyelonephritis and developed acute metabolic encephalopathy patient was brought to the ER for further evaluation, blood culture so far no growth, urine is growing multiorgonism enetero coccus and pseudomonas aeruginosa multidrug resistant being treated with Rocephin and vancomycin, will consult Dr. Canseco for further recommendation, patient with anemia multifactorial due to malignancy and CKD patient did receive one unit of PRBC, and today seen by her oncologist and will order scheduled procrit, will have PT/OT evaluate the patient and further recommendation to follow. (2) CKD (chronic kidney disease): Code(s): N18.9 - Chronic kidney disease, unspecified Status: Acute Assessment and Plan: Continue to monitor Daily BMP Avoid nephrotoxics (3) Anemia due to stage 3b chronic kidney disease: Onset Date: Unknown Code(s): N18.32 - Chronic kidney disease, stage 3b; D63.1 - Anemia in chronic kidney disease Status: Acute Assessment and Plan: Transfuse as Continue to monitor Patient received 1 unit of packed red blood cell (4) Bilateral hydronephrosis: Code(s): N13.30 - Unspecified hydronephrosis Status: Acute Assessment and Plan: Secondary to obstructive uropathy secondary to tumor burden Is status post bilateral nephrostomy Continue nephrostomy care (5) UTI (urinary tract infection): Qualifiers: Hematuria presence: without hematuria Urinary tract infection type: site unspecified Qualified Code(s): N39.0 - Urinary tract infection, site not specified Code(s): N39.0 - Urinary tract infection, site not specified Status: Acute Assessment and Plan: Patient growing Enterococcus Patient also with Pseudomonas in the past Will obtain a consult with Infectious Disease for antibiotic choice of as multiple resistance organisms present (6) Congestive heart failure: Qualifiers: Heart failure type: diastolic Heart failure chronicity: chronic Qualified Code(s): I50.32 - Chronic diastolic (congestive) heart failure Code(s): I50.9 - Heart failure, unspecified Status: Chronic Assessment and Plan: Does not appear to be decompensated Continue to monitor Intake and output balance daily (7) Acute metabolic encephalopathy: Code(s): G93.41 - Metabolic encephalopathy Status: Acute Assessment and Plan: a mix of endocrine metabolic and toxic due to tumor burden and urinary tract infection Supportive care Patient more lucid today (8) Lower extremity edema: Code(s): R60.0 - Localized edema Status: Acute Assessment and Plan: A mix of dependent edema and hypoproteinemia secondary to protein calorie malnutrition secondary to tumor burden Additional Plan The patient has acute metabolic encephalopathy due to pyelonephritis associated with bilateral nephrostomy tubes. The patient's prior urine culture grown out Pseudomonas and Enterococcus. Her prior pseudomonal bacteria was pansensitive. Her enterococcal bacteria was resistant to everything except for vancomycin. The patient has been placed on empiric antibiotic therapy with Rocephin and 1 dose of vancomycin. Blood cu
--- NOTE | 2021-01-21 15:42 | WPDONCPN ---
Progress Note: A/P (1) Metastatic colon cancer in female Onset Date: ~2017 Code(s): C18.9 - Malignant neoplasm of colon, unspecified Status: Chronic Assessment and plan: Patient opts to continue treatment for her Colon cancer. She can discuss with Dr. Arango resuming therapy with panitumumab IV every 14 days as an outpatient once infection and acute issues resolve. For her anemia, we will continue retacrit 20,000 U SC twice a week, with PRBC transfusions as needed, recently given in clinic on 01/07/2021. Have placed order for retacrit today. - Time Spent With Patient Total time spent is greater than 50% in coordination of care (as documented) at patient's floor/unit and/or counseling patient: 15 - 25 minutes Subjective Interval history: Patient follows with Dr. Arango for history of metastatic colon cancer, KRAS WT, on panitumumab since October. Admitted to the hospital with AMS and bacteremia from pyelonephritis. Has bilateral nephrostomy tubes from obstructive uropathy and anemia on procrit 20,000 U SC twice weekly, with recent PRBC transfusion on 01/07/2021. Patient oriented upon examination today, eating a soft diet, conversive, not reporting any discomfort at the moment. Review of Systems - Constitutional Reports anorexia, Reports weakness - ENT Reports system reviewed and no additional complaints, except as documented - Cardiovascular Reports leg swelling Exam Vital signs: Temp Pulse Resp BP Pulse Ox 36.6 C 67 16 140/85 95 01/21/21 08:00 01/21/21 08:00 01/21/21 08:00 01/21/21 08:00 01/21/21 08:00 - Constitutional no acute distress - Routine HEENT Exam ENT: Present: mucous membranes moist - Routine Abdominal Exam Present: distended, soft Comments: Nephrostomy tubes in place with clear urine - Routine Extremities Exam Present: pedal edema - Routine Neurological Exam Present: alert, oriented X3 PN: Objective Data - Labs CBC & Chem 7: 01/22/21 09:20 01/22/21 09:20 Labs: Laboratory Results - last 24 hr 01/20/21 01/21/21 01/21/21 16:28 05:21 07:39 WBC RBC Hgb Hct MCV MCH MCHC RDW Plt Count MPV Sodium Potassium Chloride Carbon Dioxide Anion Gap BUN Creatinine 2.00 H Estim Creat Clear Calc 22 Estimated GFR 31 L Glucose POC Capillary Glucose 124 H 100 Calcium Magnesium 01/21/21 01/21/21 01/21/21 09:22 09:22 12:19 WBC 9.8 RBC 3.24 L Hgb 9.7 L Hct 29.2 L MCV 90.1 MCH 29.9 MCHC 33.2 RDW 15.0 H Plt Count 136 L MPV 9.9 Sodium 139 Potassium 3.1 L Chloride 116 H Carbon Dioxide 21 L Anion Gap 2 L BUN 25 H Creatinine 1.90 H Estim Creat Clear Calc 23 Estimated GFR 33 L Glucose 104 POC Capillary Glucose 137 H Calcium 7.0 L Magnesium 1.5 L
[2021-01-21] MEDS: EPOETIN ALFA-EPBX 20,000 UNITS/ML VIAL 20000 UNITS SUB-Q (16:52)
[2021-01-21 16:53] LABS: Glucose Point of Care 94 (65-105)
[2021-01-21 17:26] LABS: Anion Gap 1 mmol/L (8-16); Blood Urea Nitrogen 25 mg/dL (7-17); Calcium 6.8 mg/dL (8.4-10.2); Carbon Dioxide 21 mmol/L (22-30); Chloride 115 mmol/L (98-107); Estimated CRCL calculation 23 ml/min; Estimated Glomerular Filt Rate 33; Glucose 89 mg/dL (65-105); Potassium 3.9 mmol/L (3.4-5.0); Sodium 137 mmol/L (137-145)
[2021-01-21 20:32] LABS: Glucose Point of Care 129 (65-105)
[2021-01-21 21:04] VITALS: BP 122/79; PULSE 79; RESP 16; TEMP 36.3; O2SAT 100
[2021-01-22] MEDS: DEXTROSE 5%/0.9% SOD CHL 1,000 ML 125 ML IV CONT ×3 (01:28→18:36)
[2021-01-22 06:00] VITALS: BP 142/82; PULSE 79; RESP 16; TEMP 36.8; O2SAT 100
[2021-01-22] MEDS: CENTRAL LINE FLUSH 10 ML IV PUSH ×3 (06:10→22:09)
[2021-01-22 07:26] LABS: Glucose Point of Care 86 (65-105)
[2021-01-22 09:45] LABS: Hematocrit 30.3 % (37.0-47.0); Hemoglobin 9.9 g/dL (12.0-15.0); Mean Corpuscular HGB Conc 32.7 g/dl (32-36); Mean Corpuscular Volume 88.9 fl (80-100); Mean Platelet Volume 9.9 fl (7.4-10.4); Platelet Count Result 158 k/mm3 (150-375); Red Blood Count 3.41 M/mm3 (4.2-5.4); White Blood Count 12.3 K/mm3 (4.5-10.0)
--- NOTE | 2021-01-22 09:50 | PCOTNOTE ---
Attempted to see patient, patient fatigued and asked therapist to come back later. Will attempt later today.
[2021-01-22 09:53] LABS: Albumin Level 1.9 g/dL (3.5-5.1); Anion Gap 3 mmol/L (8-16); Blood Urea Nitrogen 22 mg/dL (7-17); Calcium 7.1 mg/dL (8.4-10.2); Carbon Dioxide 18 mmol/L (22-30); Chloride 116 mmol/L (98-107); Estimated CRCL calculation 26 ml/min; Estimated Glomerular Filt Rate 37; Glucose 106 mg/dL (65-105); Magnesium 1.6 mg/dL (1.6-2.3); Phosphorus 1.4 mg/dL (2.5-4.5); Potassium 3.4 mmol/L (3.4-5.0); Sodium 137 mmol/L (137-145)
--- NOTE | 2021-01-22 10:45 | WPDNEURCNPN ---
Assessment and Plan Assessment and plan (1) Acute metabolic encephalopathy: Code(s): G93.41 - Metabolic encephalopathy Status: Acute Additional Plan 60 years old lady with history of malignancy admitted for the insomnia general physical examination is unremarkable neuro examination is grossly nonfocal CT of the head is negative at this particular time she will need medical care but we can always obtain the MRI it can be done rule out the possibility of any metastatic disease Consult date: 01/22/21 Time Seen: 09:00 HPI: Dina Smith is a 60 year old femaleHas been admitted to the hospital for the complaints of excessively sleepy and hallucinating. She carries the diagnosis of 1. Stage III colon cancer 2. Right lower extremity DVT for which she is on anticoagulation therapy that is Eliquis 3. Chronic renal disease 4. Chronic anemia 5. Congestive heart failure and 6. Bilateral nephrostomy due to outlet obstruction is. Patient has received immunotherapy about 5 days with before visit to the ER. And subsequently she was unable to sleep for 72 hours on the last day of insomnia and she was noted to be hallucinating but subsequently she was slow to respond and was intermittently shaking her head in yes or no and the intermittently following the commands for brought to the hospital. At the time of initial evaluation by the hospitalist she was complaining of pain all over subsequently she was able to communicate to the nursing staff. evaluation up until now documented the mild leukocytosis with WBC of 12.3 with hemoglobin 9.9 and the platelet count of 158, normal basic metabolic panel with elevated BUN of 22 creatinine of 1.70 and estimated GFR of only 37, mild atelectasis on the x-ray of the chest with cardiomegaly, negative CT scan of the head, and normal Doppler studies of the lower extremities with no DVT, present patient is receiving ceftriaxone 1 g daily along with the vancomycin 750 mg Q 48 hours intravenously. patient has already been seen by the oncologist for the metastatic colon cancer for which she is being followed by Dr. Faraz kruse [id number] subcu twice a week has been continued for anemia. Review of Systems Review of Systems: All systems reviewed & are unremarkable except as noted in HPI and below PMFSH Past Medical History Medical History Anemia of chronic disease Anxiety Chronic kidney disease (~03/2020) Baseline creatinine is between 2.0 and 2.40. Congestive heart failure Grade 1 diastolic dysfunction with an EF of 55-60%. Deep vein thrombosis of right lower extremity History of small bowel obstruction Hypertension Metastatic colon cancer in female (~2017) Diagnosis in 2015, status post colectomy with colostomy and adjuvant chemotherapy with FOLFOX. Status post hyperthermic intraperitoneal chemotherapy with debulking surgery in 2017 done in [place]. Status post bilateral nephrostomy tube placement in August 2020 due to extrinsic compression of the ureters from a large tumor, found to be recurrent metastatic cancer. Imaging on 12/21/2020 showed a malignant mass in the sigmoid colon with pelvic lymphadenopathy and multiple peritoneal masses consistent with metastatic disease. She is currently receiving immunotherapy per Dr. Arango. Moderate aortic regurgitation Port-A-Cath in place Surgical History Surgical History History of bone marrow biopsy History of laparotomy (~2017) Debulking surgery for metastatic colon cancer. History of nephrostomy Bilateral nephrostomy tube placement secondary to extrinsic compression of the ureters from malignant colon cancer. History of partial colectomy (~2015) With colostomy and subsequent takedown. History of total abdominal hysterectomy and bilateral salpingo-oophorectomy As part of debulking surgery for recurrent colon cancer as detailed above. History of tubal ligat
--- NOTE | 2021-01-22 11:05 | PCSTNOTE ---
Please refer to the Bedside Swallow Evaluation in the EMR. Please note, silent aspiration cannot be ruled out at bedside.
--- NOTE | 2021-01-22 12:16 | WPDNEUROLOGY ---
Neurology EEG Report General Information Date of Study: 01/21/21 TEST eeg DIAGNOSIS possible seizure activity CONDITION OF RECORDING drowsy and sleep EEG NUMBER [id number] CLINICAL HISTORY patient was brought in to the hospital for being unresponsive. At present having some muscle twitching of arms and shoulders. Does have a history of metastatic cancer. EEG DESCRIPTION Basic resting occipital frequency consists of low to medium voltage 8 to 10 hertz per second alpha admixed with low-voltage 15 to 21 hertz per second beta. Bilateral symmetrical sleep activity seen during sleep. hyperventilation not done. photic stimulation not done. non paroxysmal. Nonfocal. Nonlateralizing. IMPRESSION No significant abnormalities noted
[2021-01-22] MEDS: POTASSIUM PHOS,M-BASIC-D-BASIC 20 MMOL in SODIUM CHLORIDE 0.9% IV 250 ML 62.5 MMOL IVPB (12:25)
--- NOTE | 2021-01-22 12:36 | WPDONCPN ---
Progress Note: A/P (1) Metastatic colon cancer in female Onset Date: ~2017 Code(s): C18.9 - Malignant neoplasm of colon, unspecified Status: Chronic Assessment and plan: Patient receives panitumumab every other week for her colon cancer and retacrit for anemia from CKD. Was scheduled for therapy this Thursday. Received PRBC tx and retacrit during this admission. Discussed resuming oncologic treatment once acute issues and infection resolved, she is interested in continuing therapy for her cancer, but would like a 2 week break. Have made arrangements for a f/u appointment with Dr. Arango in 2 weeks with infusion appointment for panitumumab and retacrit. No further episodes of seizure-like activity since yesterday's episode, seen by Neurology, EEG not revealing. CT brain w/o contrast due to kidney function did not show metastatic disease, and this would be less likely in colorectal cancer. From oncology standpoint ok to go home and come back for therapy as an outpatient. If neurologic symptoms continue would consider an MRI brain for further evaluation. - Time Spent With Patient Total time spent is greater than 50% in coordination of care (as documented) at patient's floor/unit and/or counseling patient: 15 - 25 minutes (Follow-up in cancer center for outpt therapy) Subjective Interval history: Patient follows with Dr. Arango for history of metastatic colon cancer, KRAS WT, on panitumumab since October. Admitted to the hospital with AMS and bacteremia from pyelonephritis. Has bilateral nephrostomy tubes from obstructive uropathy and anemia on procrit 20,000 U SC twice a month, with recent outpatient PRBC transfusion on 01/07/2021. Patient is more oriented upon examination today, eating a soft diet, conversive, not reporting any discomfort at the moment. Would like to go home today. Review of Systems - Constitutional Reports anorexia - ENT Reports system reviewed and no additional complaints, except as documented - Cardiovascular Reports foot swelling - Genitourinary Comments: Bilateral nephrostomy tubes draining clear urine - Integumentary/Breasts Skin/Breast: Reports wounds Comments: bed sore/pressure wound reported by the pt - Neurologic Reports sensory deficit ( distally), Reports weakness Exam - Constitutional no acute distress - Routine HEENT Exam Head: Present: normocephalic Eye: Present: normal appearance ENT: Present: mucous membranes moist - Routine Chest/Breast/Axilla Exam Comments: R chest wall port area clean and dry - Routine Respiratory Exam Present: CTAB Comments: Christina White. Assessment of coma and impaired consciousness. A practical scale. Lancet 1974; 2:81-4. - Routine Cardiovascular Exam Cardiovascular: Present: RRR - Routine Abdominal Exam Present: distended, soft - Routine Extremities Exam Present: pedal edema - Routine Neurological Exam Present: alert, oriented X3 - Routine Psychiatric Exam Present: normal affect PN: Objective Data - Labs CBC & Chem 7: 01/22/21 09:20 01/22/21 09:20 Labs: Laboratory Results - last 24 hr 01/21/21 01/21/21 01/21/21 16:48 16:54 16:57 WBC RBC Hgb Hct MCV MCH MCHC RDW Plt Count MPV Sodium 137 Potassium 3.9 Chloride 115 H Carbon Dioxide 21 L Anion Gap 1 L BUN 25 H Creatinine 1.90 H Estim Creat Clear Calc 23 Estimated GFR 33 L Glucose 89 POC Capillary Glucose 94 Calcium 6.8 L Phosphorus Magnesium 2.0 Albumin 01/21/21 01/22/21 01/22/21 20:30 06:10 09:20 WBC 12.3 H RBC 3.41 L Hgb 9.9 L Hct 30.3 L MCV 88.9 MCH 29.0 MCHC 32.7 RDW 15.0 H Plt Count 158 MPV 9.9 Sodium Potassium Chloride Carbon Dioxide Anion Gap BUN Creatinine Estim Creat Clear Calc Estimated GFR Glucose POC Capillary Glucose 129 H 86 Calcium Phosphorus Magn
[2021-01-22 12:54] LABS: Glucose Point of Care 130 (65-105)
--- NOTE | 2021-01-22 13:55 | WPDINFPN2 ---
Progress Note: A&P Assessment and Plan (1) UTI (urinary tract infection): Qualifiers: Hematuria presence: without hematuria Urinary tract infection type: site unspecified Qualified Code(s): N39.0 - Urinary tract infection, site not specified Code(s): N39.0 - Urinary tract infection, site not specified Status: Acute Assessment and Plan: Complicated UTI REC Vanc # 4, levofloxacin oral # 1, both through 01/28/21. Port in place Subjective Date/time seen: 01/22/21 13:55 Objective Data Vital Signs Vital Signs: Vital Signs - 24 hr 01/21/21 14:00 01/21/21 21:04 01/22/21 06:00 Temperature 36.2 C L 36.3 C L 36.8 C Pulse Rate 82 79 79 Respiratory Rate 18 16 16 Blood Pressure 135/62 122/79 142/82 H Pulse Oximetry 100 100 100 Intake/Output Intake/Output: Intake & Output 01/19/21 01/20/21 01/21/21 01/22/21 23:59 23:59 23:59 23:59 Intake Total 2660 4000 2510 2200 Output Total 745 650 750 410 Balance 1915 3350 1760 1790 Meds/Results Medications: Active Medications Generic Name Dose Route Start Last Admin Trade Name Freq PRN Reason Stop Dose Admin Dextrose 12.5 gm 01/19/21 05:46 Dextrose 50% 25 Gm/50 Ml Syringe IV PUSH PRN PRN Hypoglycemia Protocol Glucagon 1 mg 01/19/21 05:46 Glucagon For Inj 1 Mg Vial IM PRN PRN Hypoglycemia Protocol Glucose 15 gm 01/19/21 05:46 Glucose Oral Gel 15 Gm Of Glucse In 37.5 Gm Tube PO PRN PRN Hypoglycemia Protocol Heparin Sodium (Beef Lung) 50 units 01/21/21 09:00 01/22/21 08:58 Heparin Flush 50 Units/5 Ml Syringe IV PUSH Not Given QAM BORIS Heparin Sodium (Beef Lung) 50 units 01/20/21 19:48 Heparin Flush 50 Units/5 Ml Syringe IV PUSH PRN PRN after intermittent infusion Heparin Sodium (Beef Lung) 50 units 01/20/21 19:48 Heparin Flush 50 Units/5 Ml Syringe IV PUSH PRN PRN after blood draws Heparin Sodium (Porcine) 500 units 01/20/21 19:48 Heparin Sod Flush 500 Units/5 Ml Syringe IV PUSH PRN PRN see comments below Dextrose/Sodium Chloride 1,000 mls @ 125 mls/hr 01/19/21 04:20 01/22/21 09:17 Dextrose 5% Sodium Chloride 0.9% IV CONT 125 mls/hr .Q8H BORIS Administration Vancomycin HCl 750 mg in 250 mls @ 250 mls/hr 01/20/21 22:00 01/20/21 22:30 Vancomycin 750 Mg/D5w 250 Ml IVPB Infused Q48H BORIS Infusion Dextrose 1,000 mls @ 100 mls/hr 01/19/21 05:46 Dextrose 5% 1,000 Ml IVPB PRN PRN Hypoglycemia Protocol Potassium Phosphate 20 mmol/ 256.6667 mls @ 62.5 mls/hr 01/22/21 10:01 01/22/21 12:25 Sodium Chloride IVPB 01/22/21 14:07 62.5 mls/hr ONCE ONE Administration Miconazole Nitrate 1 applic 01/21/21 09:00 01/22/21 09:18 Miconazole 2% Antifungal Ointment 56 Gm TOPICAL 1 applic Q12HR BORIS Administration Ondansetron HCl 4 mg 01/18/21 23:32 Ondansetron Inj 4 Mg/2 Ml Vial IV PUSH Q4H PRN Nausea Oxycodone/Acetaminophen 1 tablet 01/20/21 11:57 01/21/21 17:08 Oxycodone/Acetaminophen (*Crx) 5-325 Mg Tablet PO 1 tablet Q6H PRN Administration Breakthrough Pain Sodium Chloride 10 ml 01/20/21 22:00 01/22/21 06:10 Central Line Flush IV PUSH 10 ml Q8HR BORIS Administration Radiology Results: ITS Impressions Chest X-Ray 01/18/21 22:26 IMPRESSION: Mild infiltrate or atelectasis in the lower lung zones Cardiac megaly Right Port-A-Cath Head CT 01/18/21 23:06 IMPRESSION: No acute intracranial abnormality Nonspecific diminished attenuation of the cerebral white matter, likely due to chronic small vessel ischemic changes Cerebral and cerebellar volume loss Venous Doppler Study 01/19/21 09:42 IMPRESSION: 1. No deep venous thrombosis in either lower limb. Labs Labs: Laboratory Results - last 24 hr 01/21/21 01/21/21 01/21/21 16:48 16:54 16:57 WBC RBC Hgb Hct MCV MCH MCH
[2021-01-22 14:00] VITALS: BP 149/81; PULSE 77; RESP 16; TEMP 36.6; O2SAT 100
--- NOTE | 2021-01-22 14:07 | CONS_ITS ---
This report was moved to the correct visit, [id number] on 01/25/21. Original report was signed by Jade Canseco MD on 01/24/21 [id number]. DATE OF CONSULTATION: 01/22/2021 REASON FOR CONSULTATION: UTI. HISTORY OF PRESENT ILLNESS: A 60-year-old female, known to me from last fall when she had asymptomatic bacteria. She has nephrostomy tubes bilaterally and there has been no recent malfunction by her history. They were last changed about 1 month ago. She also has a suprapubic catheter. She has chronic renal insufficiency. She was admitted to the hospital on January 19 with confusion and decreased level of consciousness and hallucinations. Here, she has been given vancomycin and ceftriaxone, due to a suspicion over UTI and consultation now requested. She feels well now. No nausea, vomiting, abdominal pain, back pain, gross hematuria, or fatigue. She hopes to go home today or tomorrow. No pre-existing antibiotics. ALLERGIES: PENICILLIN AND SULFA CAUSING NAUSEA IN EACH CASE. HABITS: No ongoing tobacco, no alcohol. PRESENT MEDICATIONS: List reviewed. No immunosuppressants, but she does get some chemotherapy. PAST MEDICAL AND SURGICAL HISTORY: Anemia, chronic inflammation, heart failure, DVT right leg, SBO, hypertension, metastatic colon cancer, moderate AI, BTL, ALFREDO-BSO, partial colectomy, debulking surgery for her colon cancer 2018. Remainder as above. REVIEW OF SYSTEMS: 14-point review otherwise negative. FAMILY HISTORY: Stroke, cancer. SOCIAL HISTORY: She lives with her daughter, who also works. However, the patient has someone in the house 24 hours a day. PHYSICAL EXAMINATION: GENERAL: This is a middle-aged female, who appears her actual age. No acute distress. VITAL SIGNS: Afebrile since arrival, 142/82, 79, 16, 100% on room air. SKIN: No rashes. Warm and dry. EENT: Conjunctivae are normal. The oral mucosa is also normal. Pupils equal, round, reactive to light. NECK: No masses, thyromegaly, tenderness. No meningismus. LUNGS: Clear to auscultation. BACK: No CVAT. CARDIAC: Regular rate and rhythm. No murmur, gallop, or rub. ABDOMEN: No masses, nondistended. Normal bowel sounds. No tenderness. EXTREMITIES: No clubbing, cyanosis, edema. LABORATORY DATA: Urine cultures with enterococcus and one with Pseudomonas as well. I reviewed the urinalysis findings and these are suggestive of infection. White count was 36.2 on January 14, 11.0 on admission and today 12.3, hemoglobin stable at 9.9 now, and platelets are 158. Her blood gases showed respiratory alkalosis. Chemistries notable for BUN 22, creatinine 1.7, glucose 130, and albumin 1.9. Drug screen negative. RADIOLOGY: Chest x-ray atelectasis, cardiomegaly. ASSESSMENT: 1. Confusion, hallucinations, decreased level of consciousness. Infection is in the differential diagnosis. Metabolic toxic or drug-induced encephalopathy also under consideration. In terms of infection, her blood cultures have remained no growth and I would be chiefly concerned about a complicated urinary tract infection. 2. Metastatic colon cancer necessitating the nephrostomy tubes. 3. Penicillin and sulfa intolerance. 4. Severe protein-calorie malnutrition. RECOMMENDATIONS: 1. Nutritional support underway. 2. Continue vancomycin through January 28, pharmacist dosing. 3. Addition of levofloxacin, also same stop date, adjust for renal insufficiency. 4. Port-A-Cath is in place and okay with me for discharge planning to accomplish the above. Thank you very much for asking me to see her. Please call if further questions arise. JADE CANSECO M.D. [employer] 15:
[2021-01-22] MEDS: oxyCODONE/ACETAMINOPHEN (*CRX) 5-325 MG TABLET 1 TABLET PO ×2 (15:06→22:11)
--- NOTE | 2021-01-22 17:19 | PM.IMPN ---
Progress Note: A&P Assessment and Plan (1) Metastatic colon cancer in female: Onset Date: ~2017 Code(s): C18.9 - Malignant neoplasm of colon, unspecified Status: Chronic Assessment and Plan: Really poor prognosis Discussed with daughter who is at bedside is states that her mother has an infection and she will be fine Discussed advanced directives Ms. Smith wants to remain a full code 01/22/21 17:19 01/21 Patient is 60 female with hx of stage III colon cancer, right lower extremity DVT on eliquis, chronic kidney disease and b/l nephrostomy tubes 2/2 obstruction due to tumor, patient recently received immunotherapy and developed insomnia was not able to sleep for 3 days resulting in hallucinations and confusion, also pyelonephritis and developed acute metabolic encephalopathy patient was brought to the ER for further evaluation, blood culture so far no growth, urine is growing multiorgonism enetero coccus and pseudomonas aeruginosa multidrug resistant being treated with Rocephin and vancomycin, will consult Dr. Canseco for further recommendation, patient with anemia multifactorial due to malignancy and CKD patient did receive one unit of PRBC, and today seen by her oncologist and will order scheduled procrit, will have PT/OT evaluate the patient and further recommendation to follow. 01/22 today patient is sitting in chair working with speech therapy and and have agreed a soft diet, patient with complicated UTI with Enterococcus and Pseudomonas patient was seen by Dr. canseco recommending continue vancomycin #02/09 and Levaquin oral 11/08 until 01/28, will continue to monitor, patient also seen by her Hematology patient was given Procrit yesterday and patient is clinically stable can be discharged home, there is slight improvement and patient kidney function, will have a PT OT evaluate the patient and further recommendation to follow (2) CKD (chronic kidney disease): Code(s): N18.9 - Chronic kidney disease, unspecified Status: Acute Assessment and Plan: Continue to monitor Daily BMP Avoid nephrotoxics (3) Anemia due to stage 3b chronic kidney disease: Onset Date: Unknown Code(s): N18.32 - Chronic kidney disease, stage 3b; D63.1 - Anemia in chronic kidney disease Status: Acute Assessment and Plan: Transfuse as Continue to monitor Patient received 1 unit of packed red blood cell (4) Bilateral hydronephrosis: Code(s): N13.30 - Unspecified hydronephrosis Status: Acute Assessment and Plan: Secondary to obstructive uropathy secondary to tumor burden Is status post bilateral nephrostomy Continue nephrostomy care (5) UTI (urinary tract infection): Qualifiers: Hematuria presence: without hematuria Urinary tract infection type: site unspecified Qualified Code(s): N39.0 - Urinary tract infection, site not specified Code(s): N39.0 - Urinary tract infection, site not specified Status: Acute Assessment and Plan: Patient growing Enterococcus Patient also with Pseudomonas in the past Will obtain a consult with Infectious Disease for antibiotic choice of as multiple resistance organisms present (6) Congestive heart failure: Qualifiers: Heart failure type: diastolic Heart failure chronicity: chronic Qualified Code(s): I50.32 - Chronic diastolic (congestive) heart failure Code(s): I50.9 - Heart failure, unspecified Status: Chronic Assessment and Plan: Does not appear to be decompensated Continue to monitor Intake and output balance daily (7) Acute metabolic encephalopathy: Code(s): G93.41 - Metabolic encephalopathy Status: Acute Assessment and Plan: a mix of endocrine metabolic and toxic due to tumor burden and urinary tract infection Supportive care Patient more lucid today (8) Lower extremity edema: Code(s): R60.0 - Localized edema Status: Acute Assessme
[2021-01-22 21:49] VITALS: BP 140/83; PULSE 82; RESP 16; TEMP 36.8; O2SAT 100
[2021-01-23] VITALS (7 sets, daily range): BP systolic 117–148; BP diastolic 69–85; PULSE 70–113; RESP 16; TEMP 36.3–37; O2SAT 70–100
[2021-01-23 00:09] LABS: Glucose Point of Care 87 (65-105)
[2021-01-23] MEDS: DEXTROSE 5%/0.9% SOD CHL 1,000 ML 125 ML IV CONT ×3 (03:38→23:50)
[2021-01-23 05:53] LABS: Hematocrit 23.6 % (37.0-47.0); Hemoglobin 7.7 g/dL (12.0-15.0); Mean Corpuscular HGB Conc 32.6 g/dl (32-36); Mean Corpuscular Hemoglobin 29.4 pg (26-34); Mean Corpuscular Volume 90.1 fl (80-100); Mean Platelet Volume 9.7 fl (7.4-10.4); Platelet Count Result 95 k/mm3 (150-375); Red Blood Count 2.62 M/mm3 (4.2-5.4); Red Cell Distribution Width 14.9 % (11.5-14.5); White Blood Count 8.4 K/mm3 (4.5-10.0)
[2021-01-23 06:05] LABS: Albumin Level 1.5 g/dL (3.5-5.1); Anion Gap 1 mmol/L (8-16); Blood Urea Nitrogen 19 mg/dL (7-17); Calcium 6.7 mg/dL (8.4-10.2); Carbon Dioxide 18 mmol/L (22-30); Chloride 118 mmol/L (98-107); Estimated CRCL calculation 27 ml/min; Estimated Glomerular Filt Rate 40; Glucose 125 mg/dL (65-105); Magnesium 1.4 mg/dL (1.6-2.3); Phosphorus 2.1 mg/dL (2.5-4.5); Potassium 3.4 mmol/L (3.4-5.0); Sodium 137 mmol/L (137-145)
[2021-01-23] MEDS: CENTRAL LINE FLUSH 10 ML IV PUSH ×3 (06:10→23:58)
[2021-01-23 07:59] LABS: Glucose Point of Care 80 (65-105)
[2021-01-23] MEDS: MAGNESIUM SULF 2 GM/WATER 50ML 2 GM/50 ML BAG IVPB (09:03)
--- NOTE | 2021-01-23 09:39 | PCPTNOTE ---
The patient treatment was not able to be completed on 01-23-2021 due to patient stated I'm not up yet. . Will plan to continue treatment per plan of care.
[2021-01-23] MEDS: MAGNESIUM OXIDE 400 MG TABLET PO (10:23)
--- NOTE | 2021-01-23 13:01 | WPDNEUROPN ---
Progress Note: A&P Additional Plan stable/no neuro problem at this stage Review of Systems Review of Systems: All systems reviewed & are unremarkable except as noted in HPI and below Exam Const: General: cooperative, comfortable and no acute distress Orientation/consciousness: oriented to person and oriented to place Limitations: no limitations HENMT: Head: normal to inspection Ears: hearing grossly normal bilaterally General nose exam: Normal external nose present Face and sinus: normal facial exam Mouth: Yes Normal oral and palatal mucosa present Eyes: General: appearance normal, both eyes and all related structures Alignment and Position: alignment normal Eyelids: eyelids normal Sclera: sclerae normal Pupils: Equal, round and reactive pupils present EOM: EOMs intact bilaterally Direct Ophthalmoscopy: normal light reflex Neck: Neck: full ROM Resp: Effort & Inspection: normal respiratory effort Auscultation: clear to auscultation bilaterally Cardio: Rate: regular rate Rhythm: regular rhythm Skin: General skin exam: no rashes or lesions noted Neuro: General: oriented to person and oriented to place Cranial nerves: Yes CN's II-XII intact bilaterally Cognition (Neuro): normal cognition Speech: normal speech Motor exam (neuro): 5/5 motor strength present throughout Sensory Exam: normal sensation Deep tendon reflexes (DTR's): Right triceps reflex intensity grade: 1+, Left triceps reflex intensity grade: 1+, Rt Biceps (C5, C6): 1+, Left biceps reflex intensity grade: 1+, Right brachioradialis reflex intensity grade: 1+, Left brachioradialis reflex intensity grade: 1+, Right patellar reflex intensity grade: 1+, Left patellar reflex intensity grade: 1+, Right ankle reflex intensity grade: 1+ and Left ankle reflex intensity grade: 1+ Plantar Reflex Responses: downgoing: bilateral Objective Data Vital Signs Vital Signs: Vital Signs - 24 hr 01/22/21 14:00 01/22/21 21:49 01/23/21 05:33 Temperature 36.6 C 36.8 C 36.7 C Pulse Rate 77 82 70 Respiratory Rate 16 16 16 Blood Pressure 149/81 H 140/83 138/76 Pulse Oximetry 100 100 70 L Intake/Output Intake/Output: Intake & Output 01/20/21 01/21/21 01/22/21 01/23/21 23:59 23:59 23:59 23:59 Intake Total 4000 2510 3856 2550 Output Total 650 750 585 650 Balance 3350 1760 3271 1900 Meds/Results Medications: Active Medications Generic Name Dose Route Start Last Admin Trade Name Freq PRN Reason Stop Dose Admin Dextrose 12.5 gm 01/19/21 05:46 Dextrose 50% 25 Gm/50 Ml Syringe IV PUSH PRN PRN Hypoglycemia Protocol Glucagon 1 mg 01/19/21 05:46 Glucagon For Inj 1 Mg Vial IM PRN PRN Hypoglycemia Protocol Glucose 15 gm 01/19/21 05:46 Glucose Oral Gel 15 Gm Of Glucse In 37.5 Gm Tube PO PRN PRN Hypoglycemia Protocol Heparin Sodium (Beef Lung) 50 units 01/21/21 09:00 01/23/21 09:00 Heparin Flush 50 Units/5 Ml Syringe IV PUSH Not Given QAM BORIS Heparin Sodium (Beef Lung) 50 units 01/20/21 19:48 01/23/21 05:35 Heparin Flush 50 Units/5 Ml Syringe IV PUSH 50 units PRN PRN Administration after intermittent infusion Heparin Sodium (Beef Lung) 50 units 01/20/21 19:48 Heparin Flush 50 Units/5 Ml Syringe IV PUSH PRN PRN after blood draws Heparin Sodium (Porcine) 500 units 01/20/21 19:48 Heparin Sod Flush 500 Units/5 Ml Syringe IV PUSH PRN PRN see comments below Dextrose/Sodium Chloride 1,000 mls @ 125 mls/hr 01/19/21 04:20 01/23/21 11:51 Dextrose 5% Sodium Chloride 0.9% IV CONT 125 mls/hr .Q8H BORIS Administration Dextrose 1,000 mls @ 100 mls/hr 01/19/21 05:46 Dextrose 5% 1,000 Ml IVPB PRN PRN Hypoglycemia Protocol Vancomycin HCl 750 mg in 250 mls @ 250 mls/hr 01/24/21 10:00 Vancomycin 750 Mg/D5w 250 Ml IVPB Q36H BORIS Sodium Chloride 250 mls @ 30 mls/hr 01/23/21 12:48 Normal Saline Iv IV CONT 01/23/21 2
--- NOTE | 2021-01-23 13:30 | PM.IMPN ---
Progress Note: A&P Assessment and Plan (1) Metastatic colon cancer in female: Onset Date: ~2017 Code(s): C18.9 - Malignant neoplasm of colon, unspecified Status: Chronic Assessment and Plan: Really poor prognosis Discussed with daughter who is at bedside is states that her mother has an infection and she will be fine Discussed advanced directives Ms. Smith wants to remain a full code 01/23/21 13:30 01/21 Patient is 60 female with hx of stage III colon cancer, right lower extremity DVT on eliquis, chronic kidney disease and b/l nephrostomy tubes 2/2 obstruction due to tumor, patient recently received immunotherapy and developed insomnia was not able to sleep for 3 days resulting in hallucinations and confusion, also pyelonephritis and developed acute metabolic encephalopathy patient was brought to the ER for further evaluation, blood culture so far no growth, urine is growing multiorgonism enetero coccus and pseudomonas aeruginosa multidrug resistant being treated with Rocephin and vancomycin, will consult Dr. Canseco for further recommendation, patient with anemia multifactorial due to malignancy and CKD patient did receive one unit of PRBC, and today seen by her oncologist and will order scheduled procrit, will have PT/OT evaluate the patient and further recommendation to follow. 01/22 today patient is sitting in chair working with speech therapy and and have agreed a soft diet, patient with complicated UTI with Enterococcus and Pseudomonas patient was seen by Dr. canseco recommending continue vancomycin #4/10 and Levaquin oral /7 until 01/28, will continue to monitor, patient also seen by her Hematology patient was given Procrit yesterday and patient is clinically stable can be discharged home, there is slight improvement and patient kidney function, will have a PT OT evaluate the patient and further recommendation to follow. 01/23 today patient states feeling much better wants to go home however her hemoglobin is trending down communicated with oncologist will do 1 unit of pack RBC, will do stool Hemoccult, will CT scan of abdomen to rule out bleeding, will consult GI for further recommendation, patient was seen by Dr. Canseco on 01/22 recommended to continue vancomycin 5/10 and added is Levaquin orally /7. Will continue to monitor will follow recommendation oncology and GI and plan discharge. (2) CKD (chronic kidney disease): Code(s): N18.9 - Chronic kidney disease, unspecified Status: Acute Assessment and Plan: Continue to monitor Daily BMP Avoid nephrotoxics (3) Anemia due to stage 3b chronic kidney disease: Onset Date: Unknown Code(s): N18.32 - Chronic kidney disease, stage 3b; D63.1 - Anemia in chronic kidney disease Status: Acute Assessment and Plan: Transfuse as Continue to monitor Patient received 1 unit of packed red blood cell (4) Bilateral hydronephrosis: Code(s): N13.30 - Unspecified hydronephrosis Status: Acute Assessment and Plan: Secondary to obstructive uropathy secondary to tumor burden Is status post bilateral nephrostomy Continue nephrostomy care (5) UTI (urinary tract infection): Qualifiers: Hematuria presence: without hematuria Urinary tract infection type: site unspecified Qualified Code(s): N39.0 - Urinary tract infection, site not specified Code(s): N39.0 - Urinary tract infection, site not specified Status: Acute Assessment and Plan: Patient growing Enterococcus Patient also with Pseudomonas in the past Will obtain a consult with Infectious Disease for antibiotic choice of as multiple resistance organisms present (6) Congestive heart failure: Qualifiers: Heart failure type: diastolic Heart failure chronicity: chronic Qualified Code(s): I50.32 - Chronic diastolic (congestive) heart failure Code(s): I50.9 - Heart failure, unspecified Status: Chronic Assessme
--- NOTE | 2021-01-23 13:56 | PCOTNOTE ---
Attempted to see patient for skilled OT session at this time. Patient sitting up in bed and eating lunch upon entry. When participation in therapy was discussed patient declined at this time stating, Give me about 20 minutes to finish eating and then we can talk about trying to do something. Will attempt to see patient for a second attempt this date if possible. Continue per Plan of Care.
--- NOTE | 2021-01-23 14:21 | PCOTNOTE ---
Attempted to see patient for a second time this PM. Patient was unable to be seen due to being taken for CAT scan at this time.The patient treatment was not able to be completed this date. Will plan to continue treatment per plan of care.
[2021-01-23] MEDS: SODIUM CHLORIDE 0.9% IV 250 ML 30 ML IV CONT (16:09)
--- NOTE | 2021-01-23 16:30 | WPDGICN ---
Assessment and Plan Assessment and plan (1) Acute on chronic anemia: Code(s): D64.9 - Anemia, unspecified Status: Acute Assessment and Plan: anemia probably multifactorial from CKD, metastatic colon cancer with mass in sigmoid (seen in recent CT scan), drug induced (patient getting vectibix), etc no signs of overt gib, no need to proceed with endoscopic evaluation follow up with her hem-onc and continue with epoetin injections as needed most likely anemia will recur since she has advanced colon cancer with mass in colon (2) Acute metabolic encephalopathy: Code(s): G93.41 - Metabolic encephalopathy Status: Acute Assessment and Plan: improved, she is talking and aware of what is going on (3) Metastatic colon cancer in female: Onset Date: ~2017 Code(s): C18.9 - Malignant neoplasm of colon, unspecified Status: Chronic Assessment and Plan: stage IV, she is on treatment by oncology (4) Anemia due to stage 3b chronic kidney disease: Onset Date: Unknown Code(s): N18.32 - Chronic kidney disease, stage 3b; D63.1 - Anemia in chronic kidney disease Status: Acute Assessment and Plan: continue to monitor (5) Chronic renal failure, stage 3b: Code(s): N18.32 - Chronic kidney disease, stage 3b Status: Chronic (6) UTI (urinary tract infection): Qualifiers: Hematuria presence: without hematuria Urinary tract infection type: site unspecified Qualified Code(s): N39.0 - Urinary tract infection, site not specified Code(s): N39.0 - Urinary tract infection, site not specified Status: Acute Assessment and Plan: on antibiotics (7) Port-A-Cath in place: Code(s): Z95.828 - Presence of other vascular implants and grafts Status: Inactive GI Consult Note Consult date/time: 01/23/21 16:30 Reason for consult: acute on chronic anemia, metastatic colon cancer HPI: Dina Smith is a 60 year old female with history of stage IV colon cancer diagnosis in 2016, status post colectomy and adjuvant chemotherapy with FOLFOX then underwent hyperthermic intraperitoneal chemotherapy with debulking surgery in 2017 done in [place] complicated with bilateral nephrostomy tube placement in August 2020 due to extrinsic compression of the ureters from a large tumor, found to be recurrent metastatic cancer, CKD stage III. Imaging on 12/21/2020 showed a malignant mass in the sigmoid colon with pelvic lymphadenopathy and multiple peritoneal masses consistent with metastatic disease. Patient currently is on panitumumab since October and also epoetin injection because ongoing anemia. She was admitted to the hospital few days ago with excessively sleepy and hallucinations, CT braind reviewed and nothing acute, evaluated by neurology and also oncology, also treated for UTI with antibiotics. I was called because recurrent anemia however her nurse and patient denies any overt GIB, no abdominal pain and she is eating. Review of Systems Constitutional: Constitutional: Reports fatigue Eyes: Eyes: Reports no additional eye complaints ENT: Reports system reviewed and no additional complaints, except as documented Cardiovascular: Cardiovascular: Reports no additional cardiovascular complaints Respiratory: Respiratory: Reports no additional respiratory complaints Gastrointestinal: Gastrointestinal: Denies melena and Denies hematemesis Genitourinary: Comments: bilateral nephrostomy Neurologic: Reports confusion Endocrine: Endocrine: Reports fatigue Hematologic/Lymphatic: Comments: chronic anemia PMFSH Past Medical History Medical History Anemia of chronic disease Anxiety Chronic kidney disease (~03/2020) Baseline creatinine is between 2.0 and 2.40. Congestive heart failure Grade 1 diastolic dysfunction with an EF of 55-60%. Deep vein thrombosis of right lower extremity History
[2021-01-23] MEDS: oxyCODONE/ACETAMINOPHEN (*CRX) 5-325 MG TABLET 1 TABLET PO (20:43)
--- NOTE | 2021-01-24 01:55 | PC.NURSE ---
Pt refusing antifungal cream, pt states she is only agreeable to zinc barrier cream.
[2021-01-24 05:55] LABS: Hemoglobin 9.5 g/dL (12.0-15.0); Mean Corpuscular HGB Conc 33.9 g/dl (32-36); Mean Corpuscular Hemoglobin 30.2 pg (26-34); Mean Corpuscular Volume 88.9 fl (80-100); Mean Platelet Volume 9.8 fl (7.4-10.4); Platelet Count Result 117 k/mm3 (150-375); Red Blood Count 3.15 M/mm3 (4.2-5.4); Red Cell Distribution Width 14.8 % (11.5-14.5); White Blood Count 9.3 K/mm3 (4.5-10.0)
[2021-01-24 06:00] VITALS: BP 146/70; PULSE 67; RESP 18; TEMP 37.2; O2SAT 100
[2021-01-24 06:10] LABS: Albumin Level 1.7 g/dL (3.5-5.1); Anion Gap 1 mmol/L (8-16); Blood Urea Nitrogen 17 mg/dL (7-17); Carbon Dioxide 18 mmol/L (22-30); Chloride 119 mmol/L (98-107); Estimated CRCL calculation 26 ml/min; Estimated Glomerular Filt Rate 37; Glucose 90 mg/dL (65-105); Magnesium 1.6 mg/dL (1.6-2.3); Phosphorus 1.8 mg/dL (2.5-4.5); Potassium 3.6 mmol/L (3.4-5.0); Sodium 138 mmol/L (137-145)
[2021-01-24] MEDS: DEXTROSE 5%/0.9% SOD CHL 1,000 ML 125 ML IV CONT (08:18)
[2021-01-24] MEDS: MAGNESIUM OXIDE 400 MG TABLET PO (09:12)
[2021-01-24] MEDS: CENTRAL LINE FLUSH 10 ML IV PUSH ×2 (09:13→13:53)
--- NOTE | 2021-01-24 10:55 | PCNFU ---
Nutrition Follow-Up Complete: Inadequate oral intake related to decreased appetite and tooth/dentition pain as evidenced by 0-25% meal consumption, weight loss of 15 pounds since last admission on 12/22/2020, and pureed diet order. Goal: Patient to consume 75% or more of meals on current diet order. Patient is progressing toward goal. We will continue current goal. Pt current nutrition is level 6 soft and bite sized. Last recorded weight is 51.7 kg. Recommend re-weighing prior to discharge. Bowel Motility: + BM 01/22 Labs Reviewed: Hgb 9.5, Hct 28, Alb 1.7, GFR 37, Cr 1.7 Meds Noted: Vancomycin, Zofran, Heparin Sodium, Mag-Ox Additional Notes: Checked in with patient. Patient was in a great mood with no nutritional questions or concerns. She reported having a much better appetite increasing by the day. She is receiving ensure clear providing her with an additional 240 calories and 8 grams of protein as well as ensure compact providing her with an additional 220 calories and 9 grams of protein. She is consuming on average 40% of meals. Monitor patients labs, medications, weight, and oral intake every 5 days.
--- NOTE | 2021-01-24 12:15 | PCNSR ---
On 01/24/21, the student,Maria Luz Sen, provided care and completed [facility] documentation on this patient. I have reviewed the student's documentation and agree with the findings.
--- NOTE | 2021-01-24 12:47 | WPDNEUROPN ---
Progress Note: A&P Assessment and Plan (1) Metastatic colon cancer in female: Onset Date: ~2017 Code(s): C18.9 - Malignant neoplasm of colon, unspecified Status: Chronic Objective Data Vital Signs Vital Signs: Vital Signs - 24 hr 01/23/21 14:00 01/23/21 16:09 01/23/21 16:24 Temperature 36.8 C 36.6 C 36.9 C Pulse Rate 82 89 113 H Respiratory Rate 16 16 16 Blood Pressure 135/83 117/69 135/85 Pulse Oximetry 100 100 100 01/23/21 17:24 01/23/21 19:14 01/23/21 22:00 Temperature 36.3 C L 36.6 C 37.0 C Pulse Rate 103 H 80 84 Respiratory Rate 16 16 16 Blood Pressure 130/80 148/78 H 143/76 H Pulse Oximetry 100 100 100 01/24/21 06:00 Temperature 37.2 C Pulse Rate 67 Respiratory Rate 18 Blood Pressure 146/70 H Pulse Oximetry 100 Intake/Output Intake/Output: Intake & Output 01/21/21 01/22/21 01/23/21 01/24/21 23:59 23:59 23:59 23:59 Intake Total 2510 3856 4859 1400 Output Total 934 018 4930 700 Balance 1760 3271 3709 700 Meds/Results Medications: Active Medications Generic Name Dose Route Start Last Admin Trade Name Freq PRN Reason Stop Dose Admin Dextrose 12.5 gm 01/19/21 05:46 Dextrose 50% 25 Gm/50 Ml Syringe IV PUSH PRN PRN Hypoglycemia Protocol Glucagon 1 mg 01/19/21 05:46 Glucagon For Inj 1 Mg Vial IM PRN PRN Hypoglycemia Protocol Glucose 15 gm 01/19/21 05:46 Glucose Oral Gel 15 Gm Of Glucse In 37.5 Gm Tube PO PRN PRN Hypoglycemia Protocol Heparin Sodium (Beef Lung) 50 units 01/21/21 09:00 01/24/21 09:07 Heparin Flush 50 Units/5 Ml Syringe IV PUSH Not Given QAM BORIS Heparin Sodium (Beef Lung) 50 units 01/20/21 19:48 01/23/21 05:35 Heparin Flush 50 Units/5 Ml Syringe IV PUSH 50 units PRN PRN Administration after intermittent infusion Heparin Sodium (Beef Lung) 50 units 01/20/21 19:48 01/23/21 13:24 Heparin Flush 50 Units/5 Ml Syringe IV PUSH 50 units PRN PRN Administration after blood draws Heparin Sodium (Porcine) 500 units 01/20/21 19:48 Heparin Sod Flush 500 Units/5 Ml Syringe IV PUSH PRN PRN see comments below Dextrose/Sodium Chloride 1,000 mls @ 125 mls/hr 01/19/21 04:20 01/24/21 08:18 Dextrose 5% Sodium Chloride 0.9% IV CONT 125 mls/hr .Q8H BORIS Administration Dextrose 1,000 mls @ 100 mls/hr 01/19/21 05:46 Dextrose 5% 1,000 Ml IVPB PRN PRN Hypoglycemia Protocol Vancomycin HCl 750 mg in 250 mls @ 250 mls/hr 01/24/21 10:00 01/24/21 10:15 Vancomycin 750 Mg/D5w 250 Ml IVPB Infused Q36H BORIS Infusion Levofloxacin 500 mg 01/22/21 14:00 01/22/21 15:02 Levofloxacin Tab 500 Mg Tablet PO 500 mg Q48H BORIS Administration Magnesium Oxide 400 mg 01/23/21 09:00 01/24/21 09:12 Magnesium Oxide 400 Mg Tablet PO 400 mg QAM BORIS Administration Miconazole Nitrate 1 applic 01/21/21 09:00 01/24/21 09:13 Miconazole 2% Antifungal Ointment 56 Gm TOPICAL 1 applic Q12HR BORIS Administration Oxycodone/Acetaminophen 1 tablet 01/20/21 11:57 01/23/21 20:43 Oxycodone/Acetaminophen (*Crx) 5-325 Mg Tablet PO 1 tablet Q6H PRN Administration Breakthrough Pain Sodium Chloride 10 ml 01/20/21 22:00 01/24/21 09:13 Central Line Flush IV PUSH 10 ml Q8HR BORIS Administration Radiology Results: ITS Impressions Chest X-Ray 01/18/21 22:26 IMPRESSION: Mild infiltrate or atelectasis in the lower lung zones Cardiac megaly Right Port-A-Cath Head CT 01/18/21 23:06 IMPRESSION: No acute intracranial abnormality Nonspecific diminished attenuation of the cerebral white matter, likely due to chronic small vessel ischemic changes Cerebral and cerebellar volume loss Venous Doppler Study 01/19/21 09:42 IMPRESSION: 1. No deep venous thrombosis in either lower limb. Abdomen CT 01/23/21 16:10 IMPRESSION: 1. Interval development of cardiomegaly, small peric
--- NOTE | 2021-01-24 12:50 | PM.DS ---
DS: Admitting Diagnosis Admitting Diagnosis Admitting Diagnosis: Chief Complaint: Getting sleepy and hallucinating DS: Discharge Diagnosis Discharge Diagnosis (1) Metastatic colon cancer in female: Onset Date: ~2017 Code(s): C18.9 - Malignant neoplasm of colon, unspecified Status: Chronic Assessment and Plan: Really poor prognosis Discussed with daughter who is at bedside is states that her mother has an infection and she will be fine Discussed advanced directives Ms. Smith wants to remain a full code 01/23/21 13:30 01/21 Patient is 60 female with hx of stage III colon cancer, right lower extremity DVT on eliquis, chronic kidney disease and b/l nephrostomy tubes 2/2 obstruction due to tumor, patient recently received immunotherapy and developed insomnia was not able to sleep for 3 days resulting in hallucinations and confusion, also pyelonephritis and developed acute metabolic encephalopathy patient was brought to the ER for further evaluation, blood culture so far no growth, urine is growing multiorgonism enetero coccus and pseudomonas aeruginosa multidrug resistant being treated with Rocephin and vancomycin, will consult Dr. Canseco for further recommendation, patient with anemia multifactorial due to malignancy and CKD patient did receive one unit of PRBC, and today seen by her oncologist and will order scheduled procrit, will have PT/OT evaluate the patient and further recommendation to follow. 01/22 today patient is sitting in chair working with speech therapy and and have agreed a soft diet, patient with complicated UTI with Enterococcus and Pseudomonas patient was seen by Dr. canseco recommending continue vancomycin #4/10 and Levaquin oral /7 until 01/28, will continue to monitor, patient also seen by her Hematology patient was given Procrit yesterday and patient is clinically stable can be discharged home, there is slight improvement and patient kidney function, will have a PT OT evaluate the patient and further recommendation to follow. 01/23 today patient states feeling much better wants to go home however her hemoglobin is trending down communicated with oncologist will do 1 unit of pack RBC, will do stool Hemoccult, will CT scan of abdomen to rule out bleeding, will consult GI for further recommendation, patient was seen by Dr. Canseco on 01/22 recommended to continue vancomycin 5/10 and added is Levaquin orally 12/09. Will continue to monitor will follow recommendation oncology and GI and plan discharge. (2) CKD (chronic kidney disease): Code(s): N18.9 - Chronic kidney disease, unspecified Status: Acute Assessment and Plan: Continue to monitor Daily BMP Avoid nephrotoxics (3) Anemia due to stage 3b chronic kidney disease: Onset Date: Unknown Code(s): N18.32 - Chronic kidney disease, stage 3b; D63.1 - Anemia in chronic kidney disease Status: Acute Assessment and Plan: Transfuse as Continue to monitor Patient received 1 unit of packed red blood cell (4) Bilateral hydronephrosis: Code(s): N13.30 - Unspecified hydronephrosis Status: Acute Assessment and Plan: Secondary to obstructive uropathy secondary to tumor burden Is status post bilateral nephrostomy Continue nephrostomy care (5) UTI (urinary tract infection): Qualifiers: Hematuria presence: without hematuria Urinary tract infection type: site unspecified Qualified Code(s): N39.0 - Urinary tract infection, site not specified Code(s): N39.0 - Urinary tract infection, site not specified Status: Acute Assessment and Plan: Patient growing Enterococcus Patient also with Pseudomonas in the past Will obtain a consult with Infectious Disease for antibiotic choice of as multiple resistance organisms present (6) Congestive heart failure: Qualifiers: Heart failure type: diastolic Heart failure chronicity: chronic Qualified Code(s): I50.32 - Chronic di
--- NOTE | 2021-01-24 14:22 | WPDONCPN ---
Progress Note: A/P (1) Metastatic colon cancer in female Onset Date: ~2017 Code(s): C18.9 - Malignant neoplasm of colon, unspecified Status: Chronic Assessment and plan: Patient receives panitumumab every other week for her colon cancer and retacrit every other week for anemia from CKD and obstructive nephropathy. Was scheduled for therapy this week, but missed due to hospitalization. Received PRBC tx x2 and retacrit during this admission. Discussed resuming oncologic treatment once acute issues and infection resolved, she is interested in continuing therapy for her cancer, but would like a 2 week break. Hb responded appropriately to PRBC transfusion yesterday, no intervention per GI. CT a/p not showing evidence of acute GI bleed. Anemia likely multifactorial, from CKD, obstructive uropathy and likely progression of her disease. Have made arrangements for a f/u appointment with Dr. Arango week of February 03, with infusion appointment for panitumumab and retacrit. No further episodes of seizure-like activity since Thursday's episode, seen by Neurology, EEG not revealing. CT brain w/o contrast due to kidney function did not show metastatic disease, and this would be less likely in colorectal cancer. From oncology standpoint ok to go home and come back for therapy as an outpatient. If neurologic symptoms continue would consider an MRI brain for further evaluation. - Time Spent With Patient Total time spent is greater than 50% in coordination of care (as documented) at patient's floor/unit and/or counseling patient: 15 - 25 minutes Subjective Interval history: Patient follows with Dr. Arango for history of metastatic colon cancer, KRAS WT, on panitumumab since October. Admitted to the hospital with AMS and bacteremia from pyelonephritis. Has bilateral nephrostomy tubes from obstructive uropathy and anemia on procrit 20,000 U SC twice a month, with recent outpatient PRBC transfusion on 01/07/2021 and 2 transfusions during this hospitalization. Patient continues oriented upon examination today, conversive, not reporting any discomfort at the moment. Had blood yesterday, feeling ok. CT abd/pelvis did not show any active bleeding, seen by GI, no interventions recommended at the moment. Review of Systems - Review of Systems All systems reviewed & are unremarkable except as noted in HPI and bel - Neurologic Reports abnormal speech ( slow responses), Reports confusion, Reports sensory deficit ( distally), Reports weakness Exam - Constitutional no acute distress - Routine HEENT Exam Head: Present: normocephalic ENT: Present: mucous membranes moist - Routine Respiratory Exam Present: CTAB - Routine Cardiovascular Exam Cardiovascular: Present: RRR, murmur - Routine Abdominal Exam Present: distended, soft - Routine Extremities Exam Present: pedal edema - Routine Neurological Exam Present: alert, oriented X3 - Routine Psychiatric Exam Present: normal affect PN: Objective Data - Labs CBC & Chem 7: 01/24/21 04:52 01/24/21 04:52 Labs: Laboratory Results - last 24 hr 01/19/21 01/23/21 01/24/21 07:24 13:34 04:52 WBC 9.3 RBC 3.15 L Hgb 9.5 L Hct 28.0 L MCV 88.9 MCH 30.2 MCHC 33.9 RDW 14.8 H Plt Count 117 L MPV 9.8 Sodium Potassium Chloride Carbon Dioxide Anion Gap BUN Creatinine Estim Creat Clear Calc Estimated GFR Glucose Calcium Phosphorus Magnesium Albumin Blood Type O Positive Antibody Screen Negative Enhanced Crossmatch See Detail See Detail 01/24/21 04:52 WBC RBC Hgb Hct MCV MCH MCHC RDW Plt Count MPV Sodium 138 Potassium 3.6 Chloride 119 H Carbon Dioxide 18 L Anion Gap 1 L BUN 17 Creatinine 1.70 H Estim Creat Clear Calc 26 Estimated GFR 37 L Glucose 90 Calcium 7.0 L Phosphorus 1.8 L Magnesium 1.6 Albumin 1.7 L Blood Type Antibody Screen Enhanced Crossma
[2021-01-24 16:00] VITALS: BP 148/80; PULSE 91; RESP 22; TEMP 36.7; O2SAT 100
--- NOTE | 2021-01-24 16:37 | WPDGIPROGNO ---
Progress Note: A&P Assessment and Plan (1) Acute on chronic anemia: Code(s): D64.9 - Anemia, unspecified Status: Acute Assessment and Plan: no overt gib anemia is multifactorial and hem-onco on board she just received blood transfusion and is going home, continue with epo as outpatient (2) Metastatic colon cancer in female: Onset Date: ~2018 Code(s): C18.9 - Malignant neoplasm of colon, unspecified Status: Chronic Assessment and Plan: poor prognosis immunotherapy as outpatient by hem-onc (3) Acute metabolic encephalopathy: Code(s): G93.41 - Metabolic encephalopathy Status: Acute Assessment and Plan: resolved (4) Chronic renal failure, stage 3b: Code(s): N18.32 - Chronic kidney disease, stage 3b Status: Chronic Subjective Date/time seen: 01/24/21 16:37 Interval history: she is comfortable, denies blood in stools. She received blood transfusion. Review of Systems Review of Systems: All systems reviewed & are unremarkable except as noted in HPI and below Exam Const: General: no acute distress and ill appearing chronically HENMT: General nose exam: Normal nares present Eyes: General: appearance normal, both eyes and all related structures Neck: Neck: supple Chest: Other: port-a-cath in place Resp: Auscultation: clear to auscultation bilaterally Cardio: Rate: regular rate GI: GI Palp: Yes Soft to palpation and No Tenderness to palpation present (GI) Auscultation: normal bowel sounds : Other: bilateral nephrostomy Skin: General skin exam: no erythema Neuro: Speech: normal speech Other: she is awake and alert today, she know what is going on Extrem: General: no edema Psych: Affect: normal affect Objective Data Vital Signs Vital Signs: Vital Signs - 24 hr 01/23/21 17:24 01/23/21 19:14 01/23/21 22:00 Temperature 97.3 F L 97.9 F 98.6 F Pulse Rate 103 H 80 84 Respiratory Rate 16 16 16 Blood Pressure 130/80 148/78 H 143/76 H Pulse Oximetry 100 100 100 01/24/21 06:00 01/24/21 16:00 Temperature 99.0 F 98.0 F Pulse Rate 67 91 Respiratory Rate 18 22 H Blood Pressure 146/70 H 148/80 H Pulse Oximetry 100 100 Intake/Output Intake/Output: Intake & Output 01/21/21 01/22/21 01/23/21 01/24/21 23:59 23:59 23:59 23:59 Intake Total 2510 3856 4859 1400 Output Total 554 943 6930 900 Balance 1760 3271 3709 500 Meds/Results Medications: Active Medications Generic Name Dose Route Start Last Admin Trade Name Freq PRN Reason Stop Dose Admin Dextrose 12.5 gm 01/19/21 05:46 Dextrose 50% 25 Gm/50 Ml Syringe IV PUSH PRN PRN Hypoglycemia Protocol Glucagon 1 mg 01/19/21 05:46 Glucagon For Inj 1 Mg Vial IM PRN PRN Hypoglycemia Protocol Glucose 15 gm 01/19/21 05:46 Glucose Oral Gel 15 Gm Of Glucse In 37.5 Gm Tube PO PRN PRN Hypoglycemia Protocol Heparin Sodium (Beef Lung) 50 units 01/21/21 09:00 01/24/21 09:07 Heparin Flush 50 Units/5 Ml Syringe IV PUSH Not Given QAM BORIS Heparin Sodium (Beef Lung) 50 units 01/20/21 19:48 01/23/21 05:35 Heparin Flush 50 Units/5 Ml Syringe IV PUSH 50 units PRN PRN Administration after intermittent infusion Heparin Sodium (Beef Lung) 50 units 01/20/21 19:48 01/23/21 13:24 Heparin Flush 50 Units/5 Ml Syringe IV PUSH 50 units PRN PRN Administration after blood draws Heparin Sodium (Porcine) 500 units 01/20/21 19:48 Heparin Sod Flush 500 Units/5 Ml Syringe IV PUSH PRN PRN see comments below Dextrose/Sodium Chloride 1,000 mls @ 125 mls/hr 01/19/21 04:20 01/24/21 08:18 Dextrose 5% Sodium Chloride 0.9% IV CONT 125 mls/hr .Q8H BORIS Administration Dextrose 1,000 mls @ 100 mls/hr 01/19/21 05:46 Dextrose 5% 1,000 Ml IVPB PRN PRN Hypoglycemia Protocol Vancomycin HCl 750 mg in 250 mls @ 250 mls/hr 01/24/21 10:00 01/24/21 10:15 Vancomy
== END 2021-01-24 16:41 | disposition home health service (06) | DRG 698 ==
LOC: ANHED 23:19 → ANH2MED 01-19 01:41
PROVIDERS: Internal Medicine; Admitting Provider Internal Medicine; Emergency Provider Emergency Medicine; PCP Family Medicine Sports Medicine; Visit Provider Family Medicine
DX: T83.512A Infection and inflammatory reaction due to nephrostomy catheter, initial encounter (principal); G93.41 Metabolic encephalopathy; E43 Unspecified severe protein-calorie malnutrition; N10 Acute pyelonephritis; Z68.1 Body mass index [BMI] 19.9 or less, adult; C18.9 Malignant neoplasm of colon, unspecified; I13.0 Hypertensive heart and chronic kidney disease with heart failure and stage 1 through stage 4 chronic kidney disease, or unspecified chronic kidney disease; I50.32 Chronic diastolic (congestive) heart failure; Z16.24 Resistance to multiple antibiotics; B95.2 Enterococcus as the cause of diseases classified elsewhere; B96.5 Pseudomonas (aeruginosa) (mallei) (pseudomallei) as the cause of diseases classified elsewhere; N18.32 Chronic kidney disease, stage 3b; D63.1 Anemia in chronic kidney disease; D63.0 Anemia in neoplastic disease; N13.9 Obstructive and reflux uropathy, unspecified; F41.9 Anxiety disorder, unspecified; E16.2 Hypoglycemia, unspecified; Z86.718 Personal history of other venous thrombosis and embolism; Z90.710 Acquired absence of both cervix and uterus; Z90.722 Acquired absence of ovaries, bilateral; Z79.01 Long term (current) use of anticoagulants; Z87.891 Personal history of nicotine dependence
CPT/HCPCS: 36415; 36430; 36600; 70450; 71045; 74150; 80048; 80053; 80069; 80202; 80307; 81001; 82565; 82805; 82948; 83605; 83735; 84443; 85025; 85027; 85610; 85730; 86850; 86900; 86901; 86922; 87040; 87077; 87086; 87088; 87186; 92610; 93005; 93970; 95816; 96360; 97110; 97116; 97161; 97165; 97530; 99285; A9270; J0696; J1642; J3370; J3475; J3480; J7030; J7042; J7050; P9016; Q5106

== ENCOUNTER 2021-02-06 16:46 | Inpatient (IN) | payer MEDICARE, MEDICAID, SELFPAY ==
--- NOTE | ~2021-02-06 | XR_ITS ---
EXAMINATION: XR abdomen NG/feed tube rechec INDICATION: Repositioned nasogastric tube TECHNIQUE: Portable AP KUB-NG at 2136 hours COMPARISON: 2046 hours FINDINGS: The repositioned nasogastric tube ends in the stomach. Dilated loops of small bowel persist . There is a right internal jugular Port-A-Cath ending with its tip in the proximal right atrium. Duran ateral nephrostomy tubes are again noted. IMPRESSION: 1. Nasogastric tube in the stomach. 2. Small bowel obstruction. Reviewed, dictated and finalized at location A.
--- NOTE | ~2021-02-06 | XR_ITS ---
EXAMINATION: XR abdomen NG/feed tube insert INDICATION: Small bowel obstruction, nasogastric tube placement TECHNIQUE: Portable AP KUB-NG at 2047 hours COMPARISON: 12/24/2020 FINDINGS: The nasogastric tube is coiled in the distal esophagus. A right internal jugular Port-A-Cat h ends with its tip in the proximal right atrium. There are dilated loops of small bowel. Bilateral n ephrostomy tubes are noted. IMPRESSION: 1. Nasogastric tube coiled in the distal esophagus. Repositioning is recommended. 2. Small bowel obstruction. Reviewed, dictated and finalized at location A. IMPRESSION: 1. Nasogastric tube coiled in the distal esophagus. Repositioning is recommende d. 2. Small bowel obstruction.
--- NOTE | ~2021-02-06 | XR_ITS ---
EXAMINATION: XR abdomen/kub 1V EXAM DATE: 02/09/2021 05:46 INDICATION: Small bowel obstruction. TECHNIQUE: Frontal projection(s) of the abdomen for interpretation. Correlation is made to small jose l exam from yesterday. FINDINGS: There is a nasogastric tube in position. Nephrostomy tubes. Stomach has been decompressed c ompared to yesterday's final 4 hours small bowel image, patient's nasogastric tube was placed back on suction after the exam. There is still large amount of contrast within severely dilated small bowel. Possible trickle of contrast within the cecum overlying the iliac crest. This finding has been indica shon, marked on the examination for review, clinical correlation. IMPRESSION: Persistent severely dilated contrast-filled small bowel with possible trickle of contrast making it to the cecum 18 hours after administration. Small bowel obstruction. Reviewed, dictated and finalized at location A. IMPRESSION: Persistent severely dilated contrast-filled small bowel with possib le trickle of contrast making it to the cecum 18 hours after administration. Sm all bowel obstruction.
--- NOTE | ~2021-02-06 | CT_ITS ---
EXAMINATION: CT abdomen pelvis wo con DATE: 02/06/2021 19:15 INDICATION: Upper abdominal pain TECHNIQUE: Computed tomography (CT) of the abdomen and pelvis was performed without intravenous contr ast. The dose-length product (DLP) was 513.33 mGy-cm. Automated exposure control and iterative recons truction technique were employed. COMPARISON: 01/24/2020 comment 1821 FINDINGS: Minimal dependent atelectasis is present in the lung bases. Cardiomegaly is noted. There ar e small pleural effusions. The previously described 3.6 cm low-attenuation lesion of the left hepatic lobe appears stable. The spleen, pancreas, and adrenal glands are normal. The gallbladder is mildly distended. There is a 3.4 cm cyst of the left kidney. Bilateral percutaneous nephrostomy tubes are no shon. There are multiple markedly dilated loops of small bowel. There appears to be a transition point in the left mid abdomen beyond which the small bowel is decompressed. Small amount of ascites is not ed. No free intraperitoneal gas is identified. There is a persistent 4.4 cm right pelvic mass. Althou gh limited by the absence of intravenous contrast, a mass of the sigmoid colon is seen just beyond th e anastomosis. Previously described peritoneal metastases are not well demonstrated. There is diffuse anasarca. Moderate lumbar spondylosis is noted. IMPRESSION: 1. Small bowel obstruction. 2. Mass of the sigmoid colon just beyond the anastomosis without definite interval change. 3. Stable right pelvic lymphadenopathy, consistent with metastatic disease. Reviewed, dictated and finalized at location A. IMPRESSION: 1. Small bowel obstruction. 2. Mass of the sigmoid colon just beyond the anastomosis without definite inter gorge change. 3. Stable right pelvic lymphadenopathy, consistent with metastatic disease.
--- NOTE | ~2021-02-06 | XR_ITS ---
EXAMINATION: XR chest 1V portable DATE: 02/23/2021 12:10 INDICATION: Pneumonia. TECHNIQUE: A single frontal view of the chest was obtained. COMPARISON: Chest 2 views 02/20/2021 FINDINGS: There are small pleural effusions. There are mild airspace opacities at the lung bases, lik campbell atelectasis. No pneumothorax. Cardiomegaly is noted. There is a right internal jugular port with tip at superior cavoatrial junction. Partially visualized are bilateral nephrostomy tubes. IMPRESSION: 1. Small bilateral pleural effusions. 2. Improved mild airspace opacities at the lung bases, likely atelectasis. 3. Cardiomegaly. Reviewed, dictated and finalized at location A.
--- NOTE | ~2021-02-06 | XR_ITS ---
EXAMINATION: XR abdomen/kub 1V DATE: 02/08/2021 05:40 INDICATION: Small bowel obstruction. TECHNIQUE: A supine view of the abdomen was obtained. COMPARISON: Abdomen radiograph 02/06/2021, CT abdomen and pelvis 02/06/2021 FINDINGS: There is a dilated loop of small bowel in right abdomen. The colon is decompressed. There a re bilateral nephrostomy tubes in expected positions. The nasogastric tube tip is in the stomach. IMPRESSION: 1. Dilated small bowel with interval improvement, consistent with small bowel obstruction versus adyn amic ileus. Reviewed, dictated and finalized at location A. IMPRESSION: 1. Dilated small bowel with interval improvement, consistent with small bowel o bstruction versus adynamic ileus.
--- NOTE | ~2021-02-06 | XR_ITS ---
EXAMINATION: XR abdomen/kub 1V EXAM DATE: 02/10/2021 05:42 INDICATION: Small bowel obstruction. TECHNIQUE: Frontal projection(s) of the abdomen for interpretation. Comparison is made to prior exami nation from 02/09/2021. FINDINGS: Again there are multiple loops of severely distended small bowel, with contrast which was administered 2 days ago. Cannot identify any contrast within the colon. Bilateral nephrostomy tubes. Feeding tube is in position. IMPRESSION: 1. Small bowel obstruction. Reviewed, dictated and finalized at location A. IMPRESSION: 1. Small bowel obstruction.
--- NOTE | ~2021-02-06 | XR_ITS ---
EXAMINATION: XR chest 2V DATE: 02/14/2021 13:17 INDICATION: Hypoxia. Weakness. TECHNIQUE: Frontal and lateral views of the chest were obtained. COMPARISON: Chest single view 01/18/2021, CT abdomen and pelvis 02/06/2021 FINDINGS: There are small pleural effusions, left worse than right. There are airspace opacities at t he lung bases. No pneumothorax. Cardiomegaly is noted. The nasogastric tube tip is in the stomach. Th ere is a right internal jugular port with tip in right atrium. Bilateral nephrostomy tubes are noted. IMPRESSION: 1. Small pleural effusions, left worse than right. 2. Airspace opacities at the lung bases, consistent with atelectasis versus pneumonia. 3. Cardiomegaly. Reviewed, dictated and finalized at location A. IMPRESSION: 1. Small pleural effusions, left worse than right. 2. Airspace opacities at the lung bases, consistent with atelectasis versus pne umonia. 3. Cardiomegaly.
--- NOTE | ~2021-02-06 | US_ITS ---
EXAMINATION: US renal BI EXAM DATE: 02/09/2021 13:42 INDICATION: Lower right nephrostomy tube output. TECHNIQUE: Multiple grayscale and Doppler images of the kidneys were obtained (by a technologist who performed the scan) and subsequently reviewed. Comparison is made to prior examination from 0. FINDINGS: Right kidney: There is normal contour and echogenicity. It measures 7.2 x 3.4 x 3.0 centimeters, mod erately atrophic. There are no focal renal lesions identified. There is no hydronephrosis. Identif ication of nephrostomy tube in position. Left kidney: There is normal contour and echogenicity. It measures 9.7 x 5.6 x 6.6 centimeters. Ther e is a 3 cm cyst. There is no hydronephrosis. Identification of nephrostomy tube in position. Bladder was not identified. IMPRESSION: 1. Moderate right renal atrophy. 2. Nephrostomy tubes in position. 3. No hydronephrosis. Reviewed, dictated and finalized at location A.
--- NOTE | ~2021-02-06 | XR_ITS ---
EXAMINATION: XR UGI water soluble w sbs EXAM DATE: 02/08/2021 17:06 INDICATION: Colon cancer, partial colectomy. Small bowel obstruction. Nephrostomies. TECHNIQUE: Visual Stylist radiograph was acquired. Limited water-soluble upper GI examination was performed fo llowed by small bowel series using Omnipaque 350 water solution, total about 240 mL used. Pulsed dos e reduction fluoroscopy was used with fluoroscopic time of 0.1 minutes. A total of 23 images obtained for the exam. The DAP for this procedure was 12 Gycm2. FINDINGS: Visual Stylist image demonstrates bilateral nephrostomy tubes and nasogastric tube in position. Stomach has normal appearance, was decompressed upon start of exam. Patient tolerated 240 mL of contr ast being injected without becoming nauseated. KUB images were obtained at 30 minutes, 1 hour, 1 hour 30 minutes, 2 hours 15 minutes, 3 hours and 4 hours time. These images demonstrate severely distende d jejunum, and progressive opacification to the 2 hour 15 minute image. The images after this appeare d essentially unchanged, and the exam was stopped at 4 hours time without any normal calibered small bowel identified or contrast within the colon. IMPRESSION: Small bowel obstruction. Reviewed, dictated and finalized at location A. IMPRESSION: Small bowel obstruction.
--- NOTE | ~2021-02-06 | US_ITS ---
EXAMINATION: US venous doppler LE EXAM DATE: 02/09/2021 13:42 INDICATION: RLE swelling RLE SWELLING. TECHNIQUE: Multiple grayscale, color flow and Doppler images of the lower extremity deep venous syste ms bilaterally were obtained and reviewed. Comparison is made to prior examination from 01/19/2021. FINDINGS: Right side: The right common femoral, femoral and profunda veins demonstrate normal color flow, respi ratory variation, augmentation and compressibility. Compressibility, color flow confirmed within the right popliteal, posterior tibial, peroneal, and greater saphenous veins. Left side: The left common femoral, femoral and profunda veins demonstrate normal color flow, respira tory variation, augmentation and compressibility. Compressibility, color flow confirmed within the l eft popliteal, posterior tibial, peroneal, and greater saphenous veins. IMPRESSION: No lower extremity deep venous thrombosis bilaterally. Reviewed, dictated and finalized at location A.
--- NOTE | ~2021-02-06 | XR_ITS ---
EXAMINATION: XR chest 2V DATE: 02/20/2021 12:54 INDICATION: Increasing white blood cell count TECHNIQUE: frontal and lateral views of the chest were obtained. COMPARISON: Chest radiograph dated 02/14/2021 FINDINGS: Right internal jugular central venous port catheter with distal tip near the superior cavoatrial junc tion. There is also a peripheral IV project over the base of the left neck. Bilateral percutaneous ne phrostomy tubes with formed loop projecting over the expected location of the bilateral renal pelvise s. Persistent airspace opacities in the bilateral lower lung zones, left greater than right, consistent with small bilateral pleural effusions and associated basilar atelectasis and/or pneumonia. No pulmon chitra edema or pneumothorax. Cardiomediastinal silhouette is within normal limits for AP technique. Mil d thoracic spondylosis. IMPRESSION: 1. Small bilateral pleural effusions with associated bibasilar atelectasis and/or pneumonia, left gre ater than right. Reviewed, dictated and finalized at location A. IMPRESSION: 1. Small bilateral pleural effusions with associated bibasilar atelectasis and/ or pneumonia, left greater than right.
[2021-02-06 16:49] VITALS: BP 147/88; PULSE 85; RESP 18; TEMP 36.4; O2SAT 100
--- NOTE | 2021-02-06 17:14 | ED.GENADULT ---
HPI - General Adult General Chief complaint: Abdominal Pain Stated complaint: abd pain Time Seen by Provider: 02/06/21 16:59 History of Present Illness HPI narrative: Patient is a 60-year-old female with history of metastatic colon cancer currently on immunotherapy who comes to the ED today complaining of abdominal pain. Pain is located primarily in the epigastric region. Nonradiating. Present intermittently with no known exacerbating or alleviating factors. Denies any fevers. Admits to constipation, last bowel movement was 4 days ago. Notes that she had cataract surgery earlier today and received general anesthetic for this and on her way home the pain seemed to be getting worse and she did have one episode of emesis. Notes that she is currently on antibiotics for a kidney infection that was diagnosed a couple weeks ago. Has bilateral nephrostomy tubes in place. Related Data Home Medications Medication Instructions Recorded Confirmed furosemide [Lasix] 20 mg PO DAILY 01/19/21 02/04/21 magnesium oxide 400 mg PO DAILY 01/19/21 02/04/21 metoclopramide HCl [Reglan] 10 mg PO Q6H PRN 01/19/21 02/04/21 amlodipine 5 mg PO DAILY 02/04/21 02/04/21 apixaban [Eliquis] 2.5 mg PO BID 02/04/21 02/04/21 docusate sodium [DOK] 100 mg PO BID 02/04/21 02/04/21 famotidine [Pepcid] 20 mg PO DAILY 02/04/21 02/04/21 losartan [Cozaar] 25 mg PO DAILY 02/04/21 02/04/21 megestrol 400 mg PO DAILY 02/04/21 02/04/21 morphine 15 mg PO Q12H 02/04/21 02/04/21 ondansetron 4 mg PO Q6H 02/04/21 02/04/21 potassium chloride 20 meq PO DAILY 02/04/21 02/04/21 Allergies Allergy/AdvReac Type Severity Reaction Status Date / Time lisinopril Allergy Swelling Verified 02/06/21 16:55 hydrocodone AdvReac Intermediate Nausea and Verified 02/06/21 16:55 Vomiting tramadol AdvReac Intermediate Nausea and Verified 02/06/21 16:55 Vomiting codeine AdvReac Mild Nausea and Verified 02/06/21 16:55 Vomiting penicillin G AdvReac Mild Nausea and Verified 02/06/21 16:55 Vomiting Sulfa (Sulfonamide AdvReac Mild Nausea and Verified 01/18/21 21:45 Antibiotics) Vomiting aspirin [From [facility]] AdvReac Nausea Verified 02/06/21 16:55 citric acid AdvReac Nausea Verified 02/06/21 16:55 [From [facility]] lorazepam AdvReac Nausea Verified 02/06/21 16:55 sodium bicarbonate AdvReac Nausea Verified 02/06/21 16:55 [From [facility]] Review of Systems Constitutional: Constitutional: Reports as per HPI, Denies fever(s), Denies night sweats and Denies weakness Cardiovascular: Cardiovascular: Denies chest pain, Denies edema, Denies leg edema, Denies dyspnea and Denies orthopnea Respiratory: Respiratory: Denies cough and Denies dyspnea Gastrointestinal: Gastrointestinal: Reports as per HPI, Reports abdominal pain, Reports constipation, Denies diarrhea, Reports nausea and Reports vomiting Musculoskeletal: Musculoskeletal: Denies abnormal gait, Denies back pain, Denies numbness and Denies tingling Neurologic: Denies Abnormal speech present, Denies abnormal gait, Denies numbness, Denies tingling and Denies weakness Psychiatric: Psychiatric: Denies homicidal ideation and Denies suicidal ideation [facility] Past Medical History Medical History (Updated 02/06/21 @ 20:44 by Juaquin Acosta PA-C) Acute on chronic anemia Anemia of chronic disease Anxiety Chronic kidney disease (~03/2020) Baseline creatinine is between 2.0 and 2.40. Congestive heart failure Grade 1 diastolic dysfunction with an EF of 55-60%. Deep vein thrombosis of right lower extremity History of small bowel obstruction Hypertension Metastatic colon cancer in female (~2017) Diagnosis in 2016, status post colectomy with colostomy and adjuvant chemotherapy with FOLFOX. Status post hyperthermic intraperitoneal chemotherapy with debulking surgery in 2018 done in [place]. Status post bilateral nephrostomy tube placement in August 2020 due to extrinsic compression of the ureters from a larg
[2021-02-06 17:31] LABS: Basophils Percent Auto 0.2 % (0.2-1.2); Hematocrit 32.1 % (37.0-47.0); Hemoglobin 10.6 g/dL (12.0-15.0); Immature Granulocyte Absolute 0.04 K/mm3 (0.00-0.031); Immature Granulocyte Percent A 0.7 % (0-0.5); Lymphocytes Absolute Auto 0.81 K/mm3 (0.9-3.2); Lymphocytes Percent Auto 15.2 % (18.3-44.2); Mean Corpuscular Hemoglobin 30.4 pg (26-34); Mean Platelet Volume 9.1 fl (7.4-10.4); Monocytes Absolute Auto 0.4 K/mm3 (0.1-0.6); Monocytes Percent Auto 6.9 % (2.6-8.5); Neutrophils Absolute Auto 4.1 K/mm3 (1.3-6.7); Platelet Count Result 176 k/mm3 (150-375); Red Blood Count 3.49 M/mm3 (4.2-5.4); Red Cell Distribution Width 15.7 % (11.5-14.5); White Blood Count 5.3 K/mm3 (4.5-10.0)
[2021-02-06 17:45] VITALS: BP 170/99; PULSE 80; RESP 16
[2021-02-06 17:48] LABS: Alanine Aminotransferase 17 U/L (4-35); Albumin Level 2.3 g/dL (3.5-5.1); Alkaline Phosphatase 89 U/L (38-126); Anion Gap 6 mmol/L (8-16); Aspartate Amino Transferase 23 U/L (14-36); Bilirubin,Total 0.2 mg/dL (0.2-1.3); Blood Urea Nitrogen 21 mg/dL (7-17); Calcium 7.9 mg/dL (8.4-10.2); Carbon Dioxide 18 mmol/L (22-30); Chloride 113 mmol/L (98-107); Estimated CRCL calculation 26 ml/min; Estimated Glomerular Filt Rate 31; Glucose 101 mg/dL (65-105); Lipase 294 U/L (23-300); Potassium 3.8 mmol/L (3.4-5.0); Sodium 137 mmol/L (137-145)
[2021-02-06] MEDS: ONDANSETRON INJ 4 MG/2 ML VIAL IV PUSH (18:02)
[2021-02-06] MEDS: MORPHINE SULFATE (*CRX) 4 MG/ML INJ IV PUSH ×2 (18:02→20:12)
[2021-02-06 19:48] VITALS: BP 176/93; PULSE 72; RESP 17; O2SAT 100
[2021-02-06] MEDS: LACTATED RINGERS 1,000 ML 999 ML IV CONT (20:11)
--- NOTE | 2021-02-06 20:41 | PC.NURSE ---
Per JOSE chan, stopped infusion of LR. To monitor BP.
[2021-02-06] MEDS: FAMOTIDINE 20 MG/2 ML VIAL IV PUSH (20:53)
[2021-02-06 21:29] VITALS: BP 167/88; PULSE 71; RESP 14; O2SAT 100
--- NOTE | 2021-02-06 21:31 | PC.NURSE ---
NG repositioned, repeat abdominal x-ray ordered.
--- NOTE | 2021-02-06 21:58 | PC.NURSE ---
This patient, Dina Smith, was admitted to 3 [facility] Surg Room 304-01 @ 21:50. Patient/family oriented to hospital policies and general routines including ID bracelet, bed and alarms, visiting hours, pain management, procedures, bathroom and other care routines, personal items, smoking policy, room service/diet, and visiting hours. Information on how to activate the Rapid Response Team has been discussed. Patient/Family are encouraged to report perceived risks to care and to ask questions if they do not understand what they are told or what they should do.
[2021-02-06 21:59] VITALS: BMI 19.9
[2021-02-06 22:00] VITALS: BP 151/84; PULSE 75; RESP 20; TEMP 36.3; O2SAT 100
--- NOTE | 2021-02-07 00:31 | PM.IMHP ---
H&P: HPI History of Present Illness Date/Time: 02/07/21 03:00 Chief Complaint: Abdominal pain Narrative: 60-year-old female with a past medical history of stage 3 colon cancer on immunotherapy, obstructive uropathy due to mass with bilateral nephrostomy tubes, chronic kidney disease stage III and prior small-bowel obstructions who presented to the ER with 3 days of abdominal pain associated with 1 episode of emesis prior to arrival. Patient underwent right cataract extraction on the morning of the prior to coming to the ER in the early evening hours. The patient reports that she has been having intermittent colicky abdominal pain that has gotten progressively worse over the last 3 days. Her pain at its worst was a 15/10 in intensity. Her pain is currently 9/10 in intensity but had been lower after she received morphine in the ER. Patient reported that her last bowel movement was 5 days ago. She had had a similar presentation small-bowel obstruction at that time as well. Her bowel obstruction was managed medically at that time in improved after resolution of patient's constipation. The patient reports that she chronically has decreased urine output of her right nephrostomy tube. She has not noticed a change in color consistency of her urine. Her left nephrostomy has had clear urine with large output. She denies any increased flank pain. She reports that her abdomen has been more distended. She has had decreased appetite. She reports that she just now got back to eating a more normal diet within the last week. She denies any fevers or chills. She denies any recent ill contacts. She denies any shortness of breath. She has chronic lower extremity edema due to impaired lymphatic drainage from her intra-abdominal metastases. She denies any leg pain. She reports that she is chronically cold. The patient had been admitted January 18 through the due to metabolic encephalopathy, sepsis and complicated UTI with Pseudomonas and Enterococcus. Patient's Pseudomonas was sensitive to all organisms that she was discharged on Levaquin and IV vancomycin and completed her antibiotic course on the . Review of Systems Review of Systems: Narrative: 12 systems were reviewed with pertinent positives and negatives per HPI. Except as documented in the HPI, all other systems were reviewed and are negative. [facility] Past Medical History Medical History Acute on chronic anemia Anemia of chronic disease Anxiety Chronic kidney disease (~03/2020) Baseline creatinine is between 2.0 and 2.40. Congestive heart failure Grade 1 diastolic dysfunction with an EF of 55-60%. Deep vein thrombosis of right lower extremity History of small bowel obstruction Hypertension Metastatic colon cancer in female (~2017) Diagnosis in 2015, status post colectomy with colostomy and adjuvant chemotherapy with FOLFOX. Status post hyperthermic intraperitoneal chemotherapy with debulking surgery in 2017 done in [place]. Status post bilateral nephrostomy tube placement in August 2020 due to extrinsic compression of the ureters from a large tumor, found to be recurrent metastatic cancer. Imaging on 12/21/2020 showed a malignant mass in the sigmoid colon with pelvic lymphadenopathy and multiple peritoneal masses consistent with metastatic disease. She is currently receiving immunotherapy per Dr. Arango. Moderate aortic regurgitation Port-A-Cath in place Surgical History Surgical History (Updated 02/07/21 @ 07:28 by Jessica Apodaca DO) History of bone marrow biopsy History of laparotomy (~2017) Debulking surgery for metastatic colon cancer. History of nephrostomy Bilateral nephrostomy tube placement secondary to extrinsic compression of the ureters from malignant colon cancer. History of partial colectomy (~2015) With colostomy and subsequent takedown. History of total abdominal hysterectomy and bilateral salpingo-oophorect
[2021-02-07] MEDS: MORPHINE SULFATE (*CRX) 2 MG/ML INJ IV PUSH ×2 (03:56→08:49)
[2021-02-07] MEDS: ONDANSETRON INJ 4 MG/2 ML VIAL IV PUSH (03:59)
[2021-02-07 06:06] VITALS: BP 145/78; PULSE 74; RESP 20; TEMP 36.3; O2SAT 100
[2021-02-07] MEDS: DEXTROSE 5%/LACTATED RINGERS 1,000 ML 100 ML IV CONT (08:55)
--- NOTE | 2021-02-07 09:05 | PM.CNGS ---
Assessment and Plan Assessment and plan (1) Complete small bowel obstruction: Code(s): K56.601 - Complete intestinal obstruction, unspecified as to cause Status: Acute Assessment and Plan: I have reviewed and discussed the CT findings with the patient. There is evidence of a small-bowel obstruction. This is likely secondary to adhesions that could also be related to the metastasis. Due to her extensive surgical history and metastatic disease with signs of intra-abdominal recurrence, the patient would be at an extremely high risk for any surgical exploration. We will continue to treat this conservatively, with NG tube decompression, IV fluids, analgesics, and bowel rest. No recorded output from the NG tube and no collection of drainage in the current canister. X-ray shows good position of the NG tube. Changed to medium continuous suction and had the nurse flush the NG tube. Now there is thick output draining into the canister. May consider a Gastrografin small-bowel follow-through tomorrow to further assess the bowel obstruction. Will continue to monitor the patient with serial abdominal exams and imaging. Thank you for allowing us to see the patient in consultation and we will continue to follow along with you. (2) Metastatic colon cancer in female: Onset Date: ~2017 Code(s): C18.9 - Malignant neoplasm of colon, unspecified Status: Chronic Assessment and Plan: Has not been able to resume immunotherapy due to frequent hospitalizations. Follow-up with Oncology as planed once stable and discharged. (3) S/P right cataract extraction: Code(s): Z98.41 - Cataract extraction status, right eye Status: Acute Assessment and Plan: 02/06/21 had right cataract extraction. Eye shield in place for protection. (4) Chronic kidney disease: Onset Date: ~03/2020 Qualifiers: Chronic kidney disease stage: stage 3 (moderate) Chronic kidney disease stage 3 subtype: stage 3b (GFR 30-44) Qualified Code(s): N18.32 - Chronic kidney disease, stage 3b Code(s): N18.9 - Chronic kidney disease, unspecified Status: Chronic Additional Plan I have discussed the patient's case and plan of care with Dr. Miller. History of Present Illness Consult details Consult date: 02/07/21 Reason for consult: other (Small-bowel obstruction) Narrative: This is a 60-year-old female with a history of congestive heart failure, chronic kidney disease, obstructive uropathy with bilateral nephrostomy tubes, known metastatic colon cancer on immunotherapy, and multiple prior small bowel obstructions. She has had 2 prior surgeries for colon cancer in the past. In 2016, she had a colectomy at [facility] and was given a colostomy at that time. She then had a debulking surgery for stage IV colon cancer in [facility]. She has also dealt with hydronephrosis thought to be secondary from malignancy and now has bilateral nephrostomy tubes in place. Her most recent PET scan in September of 2020 shows increased uptake suggestive of ongoing malignancy. She currently sees Dr. Arango and is being treated with immunotherapy. She receives an infusion every 2 weeks, but cannot recall her last treatment. She states this was prior to her last hospitalization, and treatments have been held due to being in the hospital. Our service is familiar with this patient, as we have seen her for a small-bowel obstructions in the past. This will be her third episode this year. Both previous episodes resolved with conservative management. On her last hospitalization, the patient was instructed to follow a low-fiber diet for a few weeks and take MiraLax daily. She has not been compliant with taking Miralax, but has taken dulcolax on a few occasions if feeling constipated. She has not had a bowel movement for 5 days. The patient reports a gradual onset of abdominal pain over the past
[2021-02-07 09:06] LABS: Basophils Percent Auto 0.3 % (0.2-1.2); Eosinophils Percent Auto 0.5 % (0-4.4); Hematocrit 29.9 % (37.0-47.0); Hemoglobin 9.8 g/dL (12.0-15.0); Immature Granulocyte Absolute 0.03 K/mm3 (0.00-0.031); Immature Granulocyte Percent A 0.5 % (0-0.5); Lymphocytes Absolute Auto 0.98 K/mm3 (0.9-3.2); Lymphocytes Percent Auto 15.6 % (18.3-44.2); Mean Corpuscular HGB Conc 32.8 g/dl (32-36); Mean Corpuscular Hemoglobin 29.8 pg (26-34); Mean Corpuscular Volume 90.9 fl (80-100); Mean Platelet Volume 9.3 fl (7.4-10.4); Monocytes Absolute Auto 0.6 K/mm3 (0.1-0.6); Monocytes Percent Auto 9.3 % (2.6-8.5); Neutrophils Absolute Auto 4.6 K/mm3 (1.3-6.7); Neutrophils Percent Auto 73.8 % (45.5-73.1); Platelet Count Result 174 k/mm3 (150-375); Red Blood Count 3.29 M/mm3 (4.2-5.4); Red Cell Distribution Width 15.5 % (11.5-14.5); White Blood Count 6.3 K/mm3 (4.5-10.0)
[2021-02-07 09:17] LABS: Anion Gap 5 mmol/L (8-16); Blood Urea Nitrogen 22 mg/dL (7-17); Calcium 7.6 mg/dL (8.4-10.2); Carbon Dioxide 20 mmol/L (22-30); Chloride 113 mmol/L (98-107); Estimated CRCL calculation 24 ml/min; Estimated Glomerular Filt Rate 31; Glucose 81 mg/dL (65-105); Magnesium 1.4 mg/dL (1.6-2.3); Potassium 3.9 mmol/L (3.4-5.0); Sodium 138 mmol/L (137-145)
--- NOTE | 2021-02-07 11:00 | PM.IMPN ---
Progress Note: A&P Assessment and Plan (1) Complete small bowel obstruction: Code(s): K56.601 - Complete intestinal obstruction, unspecified as to cause Status: Acute Assessment and Plan: She reported colicky abdominal pain with progressive worsening for 3 days. Last bowel movement was 02/02/21. She has a hx of several small bowel obstructions and this is her third this year. They have resolved with conservative treatment in the past. Likely secondary to adhesions from multiple abdominal surgeries in the past vs constipation related to metastatic colon cancer. CT abd/pelvis demonstrate small bowel obstruction with clear transition point. Management per general surgery Continue bowel rest, NPO, NG tube decompression Continue analgesics and antiemetics as needed Continue serial imaging for monitoring Continue gentle IV fluids since pt is NPO (2) Chronic kidney disease: Onset Date: ~03/2020 Qualifiers: Chronic kidney disease stage: stage 3 (moderate) Chronic kidney disease stage 3 subtype: stage 3b (GFR 30-44) Qualified Code(s): N18.32 - Chronic kidney disease, stage 3b Code(s): N18.9 - Chronic kidney disease, unspecified Status: Chronic Assessment and Plan: Baseline Cr fluctuates. On review of labs, Cr has been between 1.6-3.8. Nephrostomy tubes present. Cr consistent with baseline. She receives retacrit every other week for her anemia secondary to CKD. Continue to monitor Renally dose medications and avoid nephrotoxins Will try to determine when next dose of retacrit is due (3) S/P right cataract extraction: Code(s): Z98.41 - Cataract extraction status, right eye Status: Acute Assessment and Plan: Right eye shield in place. Continue ophthalmology recommendations (4) Metastatic colon cancer in female: Onset Date: ~2017 Code(s): C18.9 - Malignant neoplasm of colon, unspecified Status: Chronic Assessment and Plan: Diagnosed in 2016, s/p colectomy and adjuvant chemotherapy w/ FOLFOX at [facility] S/P hyperthermic intraperitoneal chemotherapy and debulking surgery in 2018 in [place]. S/P bilateral nephrostomy tube placement August 2020 due to extrinsic compression of the ureters from large tumor burden consistent with recurrent metastatic cancer evident. She follows with Dr. Arango and receives palliative panitumumab every other week. She will need to continue oncology recommendations and immunotherapy (5) Anemia of chronic disease: Code(s): D63.8 - Anemia in other chronic diseases classified elsewhere Status: Acute Assessment and Plan: Suspect multifactorial related to iron deficiency and malignancy. There is no evidence of acute bleeding. Hb is stable. Monitor CBC daily and transfuse as needed to maintain Hb >7 (6) Congestive heart failure: Qualifiers: Heart failure type: diastolic Heart failure chronicity: chronic Qualified Code(s): I50.32 - Chronic diastolic (congestive) heart failure Code(s): I50.9 - Heart failure, unspecified Status: Chronic Assessment and Plan: Chronic, diastolic. Last echocardiogram 03/2020 shows EF 55-60%. Continue judicious IV fluids while NPO and stop IV fluids when diet is advanced Monitor volume status closely Subjective Date/time seen: 02/07/21 11:00 Ms. Smith is a 60 y.o. female with PMH significant for multiple prior small bowel obstructions (3rd episode this year), known metastatic colon cancer on immunotherapy under the direction of Dr. Arango, congestive heart failure, recent right cataract extraction w/ eye shield in place, CKD, obstructive uropathy with bilateral nephrostomy tubes, lymphedema, and hx of RLE DVT who is seen in follow-up for small bowel obstruction. She is okay today but still reports intermittent cramping pain throughout the mid abdomen which she describes as labor pains . The morphine
[2021-02-07 14:00] VITALS: BP 172/77; PULSE 66; RESP 16; TEMP 36.7; O2SAT 100
[2021-02-07] MEDS: CENTRAL LINE FLUSH 10 ML IV PUSH ×2 (17:45→20:56)
[2021-02-07] MEDS: HEPARIN SODIUM 5,000 UNITS/ML VIAL 5000 UNITS SUB-Q (20:56)
[2021-02-07 21:36] VITALS: BP 138/87; PULSE 62; RESP 18; TEMP 36.1; O2SAT 100
[2021-02-08] MEDS: ONDANSETRON INJ 4 MG/2 ML VIAL IV PUSH ×3 (01:34→17:09)
[2021-02-08] MEDS: MORPHINE SULFATE (*CRX) 2 MG/ML INJ IV PUSH ×2 (01:35→05:31)
[2021-02-08] MEDS: CENTRAL LINE FLUSH 10 ML IV PUSH ×3 (04:52→19:58)
[2021-02-08] MEDS: DEXTROSE 5%/LACTATED RINGERS 1,000 ML 50 ML IV CONT (04:52)
[2021-02-08 05:39] LABS: Basophils Percent Auto 0.2 % (0.2-1.2); Eosinophils Absolute Auto 0.1 K/mm3 (0-0.3); Eosinophils Percent Auto 0.8 % (0-4.4); Hematocrit 29.6 % (37.0-47.0); Hemoglobin 9.6 g/dL (12.0-15.0); Immature Granulocyte Absolute 0.03 K/mm3 (0.00-0.031); Immature Granulocyte Percent A 0.5 % (0-0.5); Lymphocytes Absolute Auto 1.01 K/mm3 (0.9-3.2); Lymphocytes Percent Auto 16.7 % (18.3-44.2); Mean Corpuscular HGB Conc 32.4 g/dl (32-36); Mean Corpuscular Hemoglobin 29.9 pg (26-34); Mean Corpuscular Volume 92.2 fl (80-100); Mean Platelet Volume 9.6 fl (7.4-10.4); Monocytes Absolute Auto 0.6 K/mm3 (0.1-0.6); Monocytes Percent Auto 9.3 % (2.6-8.5); Neutrophils Absolute Auto 4.4 K/mm3 (1.3-6.7); Neutrophils Percent Auto 72.5 % (45.5-73.1); Platelet Count Result 153 k/mm3 (150-375); Red Blood Count 3.21 M/mm3 (4.2-5.4); Red Cell Distribution Width 15.4 % (11.5-14.5); White Blood Count 6.1 K/mm3 (4.5-10.0)
--- NOTE | 2021-02-08 05:58 | PC.NURSE ---
patient put out minimal amount in NG overnight. Flushed tube upwards with saline to dislodge clog, flushed with small amount of air downwards to hopefully reposition the tube, no change. Got a new connecter and patient put 500ml out almost instantly. -AEW RN
[2021-02-08 06:00] VITALS: BP 153/71; PULSE 62; RESP 20; TEMP 36.1; O2SAT 100
[2021-02-08 06:00] LABS: Anion Gap 4 mmol/L (8-16); Blood Urea Nitrogen 22 mg/dL (7-17); Calcium 7.6 mg/dL (8.4-10.2); Carbon Dioxide 23 mmol/L (22-30); Chloride 113 mmol/L (98-107); Estimated CRCL calculation 25 ml/min; Estimated Glomerular Filt Rate 33; Glucose 87 mg/dL (65-105); Magnesium 1.4 mg/dL (1.6-2.3); Potassium 3.8 mmol/L (3.4-5.0); Sodium 140 mmol/L (137-145)
[2021-02-08] MEDS: MAGNESIUM SULF 2 GM/WATER 50ML 2 GM/50 ML BAG IVPB (08:23)
[2021-02-08] MEDS: HEPARIN SODIUM 5,000 UNITS/ML VIAL 5000 UNITS SUB-Q ×2 (08:26→19:57)
--- NOTE | 2021-02-08 11:30 | PM.IMPN ---
Progress Note: A&P Assessment and Plan (1) Complete small bowel obstruction: Code(s): K56.601 - Complete intestinal obstruction, unspecified as to cause Status: Acute Assessment and Plan: She reported colicky abdominal pain with progressive worsening for 3 days. Last bowel movement was 02/02/21. She has a hx of several small bowel obstructions and this is her third this year. They have resolved with conservative treatment in the past. Likely secondary to adhesions from multiple abdominal surgeries in the past vs constipation vs metastatic colon cancer. CT abd/pelvis demonstrate small bowel obstruction with clear transition point. Management per general surgery Plan for Gastrografin upper GI small bowel series Continue analgesics and antiemetics as needed Continue gentle IV fluids since pt is NPO (2) Chronic kidney disease: Onset Date: ~03/2020 Qualifiers: Chronic kidney disease stage: stage 3 (moderate) Chronic kidney disease stage 3 subtype: stage 3b (GFR 30-44) Qualified Code(s): N18.32 - Chronic kidney disease, stage 3b Code(s): N18.9 - Chronic kidney disease, unspecified Status: Chronic Assessment and Plan: Baseline Cr fluctuates. On review of labs, Cr has been between 1.6-3.8. Nephrostomy tubes present. Cr consistent with baseline. She receives retacrit every other week for her anemia secondary to CKD. Continue to monitor Renally dose medications and avoid nephrotoxins She is due for her next infusion 02/11 per her daughter (3) S/P right cataract extraction: Code(s): Z98.41 - Cataract extraction status, right eye Status: Acute Assessment and Plan: Right eye shield in place. Continue ophthalmology recommendations (4) Metastatic colon cancer in female: Onset Date: ~2017 Code(s): C18.9 - Malignant neoplasm of colon, unspecified Status: Chronic Assessment and Plan: Diagnosed in 2016, s/p colectomy and adjuvant chemotherapy w/ FOLFOX at [facility]. S/P hyperthermic intraperitoneal chemotherapy and debulking surgery in 2018 in [place]. S/P bilateral nephrostomy tube placement August 2020 due to extrinsic compression of the ureters from large tumor burden consistent with recurrent metastatic cancer evident. She follows with Dr. Arango and receives palliative panitumumab every other week. Continue oncology recommendations and immunotherapy (5) Anemia of chronic disease: Code(s): D63.8 - Anemia in other chronic diseases classified elsewhere Status: Acute Assessment and Plan: Suspect multifactorial related to iron deficiency and malignancy. There is no evidence of acute bleeding. Hb is stable. Monitor CBC daily and transfuse as needed to maintain Hb >7 (6) Congestive heart failure: Qualifiers: Heart failure type: diastolic Heart failure chronicity: chronic Qualified Code(s): I50.32 - Chronic diastolic (congestive) heart failure Code(s): I50.9 - Heart failure, unspecified Status: Chronic Assessment and Plan: Chronic, diastolic. Last echocardiogram 03/2020 shows EF 55-60%. Continue judicious IV fluids while NPO and stop IV fluids when diet is advanced Monitor volume status closely Subjective Date/time seen: 02/08/21 11:30 Ms. Smith is a 60 y.o. female with PMH significant for multiple prior small bowel obstructions (3rd episode this year), known metastatic colon cancer on immunotherapy under the direction of Dr. Arango, congestive heart failure, recent right cataract extraction w/ eye shield in place, CKD, obstructive uropathy with bilateral nephrostomy tubes, lymphedema, and hx of RLE DVT who is seen in follow-up for small bowel obstruction. She is doing better today. She still has intermittent abdominal pains but they are not as intense in nature. Morphine is helping with the pain but does cause nausea. She is very eager to eat again. Her leg s
[2021-02-08 12:03] VITALS: BMI 19.9
--- NOTE | 2021-02-08 13:31 | PM.PNGS ---
Progress Note: A&P Assessment and Plan (1) SBO (small bowel obstruction): Code(s): K56.609 - Unspecified intestinal obstruction, unspecified as to partial versus complete obstruction Status: Acute Assessment and Plan: Imaging looks better. Pain is better. Will get Gastrografin upper GI small bowel series to see if obstruction has resolved. (2) Metastatic colon cancer in female: Onset Date: ~2017 Code(s): C18.9 - Malignant neoplasm of colon, unspecified Status: Chronic (3) Bilateral hydronephrosis: Code(s): N13.30 - Unspecified hydronephrosis Status: Acute Subjective Subjective Date/Time Seen: 02/08/21 13:31 Patient reports: pain is less and no bowel movement Review of Systems Review of Systems: All systems reviewed & are unremarkable except as noted in HPI and below Constitutional: Constitutional: Denies headache(s) Cardiovascular: Cardiovascular: Denies chest pain and Denies dyspnea Respiratory: Respiratory: Denies cough and Denies dyspnea Gastrointestinal: Gastrointestinal: Reports as per HPI, Denies nausea and Denies vomiting Neurologic: Denies confusion and Denies headache(s) Exam Const: General: comfortable and no acute distress; No confusion Orientation/consciousness: patient oriented x3 and No confusion GI: Inspection: non-distended GI Palp: Yes Soft to palpation, No Tenderness to palpation present (GI), No Guarding due to palpation present (GI) and No Rebound tenderness present Auscultation: Hypoactive bowel sounds present Neuro: General: patient oriented x3, no focal motor deficits and No confusion Extrem: General: no calf tenderness and no edema Psych: Affect: normal affect Insight: Good insight present (Psych) Judgement: Good judgement present (Psych) Objective Data Vital Signs Vital Signs: Vital Signs - 24 hr 02/07/21 14:00 02/07/21 21:36 02/08/21 06:00 Temperature 36.7 C 36.1 C L 36.1 C L Pulse Rate 66 62 62 Respiratory Rate 16 18 20 Blood Pressure 172/77 H 138/87 153/71 H Pulse Oximetry 100 100 100 Intake/Output Intake/Output: Intake & Output 02/05/21 02/06/21 02/07/21 02/08/21 23:59 23:59 23:59 23:59 Intake Total 0 1000 Output Total 250 1050 1000 Balance -250 -1050 0 Meds/Results Medications: Active Medications Generic Name Dose Route Start Last Admin Trade Name Freq PRN Reason Stop Dose Admin Heparin Sodium (Porcine) 500 units 02/07/21 10:01 Heparin Sod Flush 500 Units/5 Ml Syringe IV PUSH PRN PRN see comments below Heparin Sodium (Porcine) 5,000 units 02/07/21 21:00 02/08/21 08:26 Heparin Sodium 5,000 Units/Ml Vial SUB-Q 5,000 units Q12HR BORIS Administration Dextrose/Lactated Ringer's 1,000 mls @ 75 mls/hr 02/06/21 20:40 02/08/21 04:52 Dextrose 5%/Lactated Ringers IV CONT 50 mls/hr .[id number] BORIS Administration Acetaminophen 1,000 mg in 100 mls @ 400 mls/hr 02/08/21 11:32 Ofirmev 1,000 Mg Ivpb IVPB 02/09/21 11:33 Q6H PRN Pain Rated 4-6 Miconazole Nitrate 1 applic 02/07/21 09:00 02/07/21 20:56 Miconazole 2% Antifungal Ointment 56 Gm TOPICAL 1 applic Q12HR BORIS Administration Morphine Sulfate 2 mg 02/07/21 09:37 02/08/21 05:31 Morphine Sulfate (*Crx) 2 Mg/Ml Inj IV PUSH 2 mg Q2H PRN Administration Pain Rated 4-6 Morphine Sulfate 4 mg 02/07/21 09:35 Morphine Sulfate (*Crx) 4 Mg/Ml Inj IV PUSH Q2H PRN Pain Rated 7-10 Ondansetron HCl 4 mg 02/06/21 20:38 02/08/21 08:27 Ondansetron Inj 4 Mg/2 Ml Vial IV PUSH 4 mg Q6H PRN Administration Nausea And Vomiting Sodium Chloride 10 ml 02/07/21 14:00 02/08/21 04:52 Central Line Flush IV PUSH 10 ml Q8HR BORIS Administration Sodium Chloride 10 ml 02/07/21 10:01 Central Line Flush IV PUSH PRN PRN before/after int. infusion Sodium Chloride 20 ml 02/07/21 10:01 Central Line Flush IV PUSH PRN PRN after blood draws
[2021-02-08 16:26] VITALS: BP 164/93; PULSE 90; RESP 16; TEMP 36.2; O2SAT 99
--- NOTE | 2021-02-08 18:15 | PHAR ---
THE FOLLOWING HOME MEDS HAVE BEEN VERIFIED BY PHARMACY: BESIVANCE (BESIFLOXACIN) 0.6% OPTH SUSPENSION SYSTANE COMPLETE LUBRICANT EYE DROPS PROLENSA (BROMFENAC) 0.07% OPTH SOLN LOTEMAX (LOTEPREDNOL ETABONATE) 0.5% OPTH GEL
[2021-02-08] MEDS: MORPHINE SULFATE (*CRX) 4 MG/ML INJ IV PUSH (18:23)
[2021-02-08 18:46] VITALS: BP 160/80
[2021-02-08] MEDS: METOPROLOL TARTRATE 25 MG TABLET PO (18:48)
[2021-02-08 22:00] VITALS: BP 173/85; PULSE 60; RESP 16; TEMP 36.5; O2SAT 100
[2021-02-08] MEDS: hydrALAZINE HCL 20 MG/ML VIAL 10 MG IV PUSH (22:26)
[2021-02-08 23:28] VITALS: BP 128/75
[2021-02-09] MEDS: MORPHINE SULFATE (*CRX) 4 MG/ML INJ IV PUSH (00:04)
[2021-02-09] MEDS: ONDANSETRON INJ 4 MG/2 ML VIAL IV PUSH (00:07)
[2021-02-09] MEDS: CENTRAL LINE FLUSH 10 ML IV PUSH ×3 (05:25→20:32)
[2021-02-09] MEDS: DEXTROSE 5%/LACTATED RINGERS 1,000 ML 50 ML IV CONT (05:25)
[2021-02-09 05:38] LABS: Hematocrit 34.4 % (37.0-47.0); Hemoglobin 11.2 g/dL (12.0-15.0); Mean Corpuscular HGB Conc 32.6 g/dl (32-36); Mean Corpuscular Volume 92.2 fl (80-100); Platelet Count Result 170 k/mm3 (150-375); Red Blood Count 3.73 M/mm3 (4.2-5.4); Red Cell Distribution Width 15.7 % (11.5-14.5); White Blood Count 7.5 K/mm3 (4.5-10.0)
[2021-02-09 06:00] VITALS: BP 133/92; PULSE 85; RESP 16; TEMP 36.6; O2SAT 100
[2021-02-09 06:03] LABS: Anion Gap 2 mmol/L (8-16); Blood Urea Nitrogen 20 mg/dL (7-17); Calcium 8.3 mg/dL (8.4-10.2); Carbon Dioxide 25 mmol/L (22-30); Chloride 113 mmol/L (98-107); Estimated CRCL calculation 24 ml/min; Estimated Glomerular Filt Rate 31; Glucose 96 mg/dL (65-105); Magnesium 1.9 mg/dL (1.6-2.3); Potassium 3.6 mmol/L (3.4-5.0); Sodium 140 mmol/L (137-145)
[2021-02-09] MEDS: HEPARIN SODIUM 5,000 UNITS/ML VIAL 5000 UNITS SUB-Q ×2 (08:28→20:32)
[2021-02-09] MEDS: LOTEPREDNOL ETABONATE 0.5% OPH 5 ML BOTTLE 1 DROP RIGHT EYE (08:32)
[2021-02-09 08:33] VITALS: PULSE 64
[2021-02-09] MEDS: METOPROLOL TARTRATE 12.5 MG TABLET FEED TUBE ×2 (08:33→20:34)
--- NOTE | 2021-02-09 10:35 | PM.IMPN ---
Progress Note: A&P Assessment and Plan (1) Complete small bowel obstruction: Code(s): K56.601 - Complete intestinal obstruction, unspecified as to cause Status: Acute Assessment and Plan: She reported colicky abdominal pain with progressive worsening for 3 days. Last bowel movement was 02/02/21. She has a hx of several small bowel obstructions and this is her third this year. They have resolved with conservative treatment in the past. Likely secondary to adhesions from multiple abdominal surgeries in the past vs constipation vs metastatic colon cancer. CT abd/pelvis demonstrated small bowel obstruction with clear transition point. Plain films and SBFT still demonstrate persistent small bowel obstruction. Management per general surgery She may require operative intervention if no improvement Continue analgesics and antiemetics as needed Continue IV fluids (2) Chronic kidney disease: Onset Date: ~03/2020 Qualifiers: Chronic kidney disease stage: stage 3 (moderate) Chronic kidney disease stage 3 subtype: stage 3b (GFR 30-44) Qualified Code(s): N18.32 - Chronic kidney disease, stage 3b Code(s): N18.9 - Chronic kidney disease, unspecified Status: Chronic Assessment and Plan: Baseline Cr fluctuates. On review of labs, Cr has been between 1.6-3.8. Nephrostomy tubes present. Cr consistent with baseline. She receives retacrit every other week for her anemia secondary to CKD. Continue to monitor Renally dose medications and avoid nephrotoxins She is due for her next infusion 02/11 per her daughter (3) S/P right cataract extraction: Code(s): Z98.41 - Cataract extraction status, right eye Status: Acute Assessment and Plan: Continue ophthalmology recommendations (4) Metastatic colon cancer in female: Onset Date: ~2017 Code(s): C18.9 - Malignant neoplasm of colon, unspecified Status: Chronic Assessment and Plan: Diagnosed in 2016, s/p colectomy and adjuvant chemotherapy w/ FOLFOX at [facility] ([facility] S/P hyperthermic intraperitoneal chemotherapy and debulking surgery in 2018 in [place]. S/P bilateral nephrostomy tube placement August 2020 due to extrinsic compression of the ureters from large tumor burden consistent with recurrent metastatic cancer evident. She follows with Dr. Arango and receives palliative panitumumab every other week. Continue oncology recommendations and immunotherapy (5) Anemia of chronic disease: Code(s): D63.8 - Anemia in other chronic diseases classified elsewhere Status: Acute Assessment and Plan: Suspect multifactorial related to iron deficiency and malignancy. There is no evidence of acute bleeding. Hb is stable. Monitor CBC daily and transfuse as needed to maintain Hb >7 (6) Congestive heart failure: Qualifiers: Heart failure chronicity: chronic Heart failure type: diastolic Qualified Code(s): I50.32 - Chronic diastolic (congestive) heart failure Code(s): I50.9 - Heart failure, unspecified Status: Chronic Assessment and Plan: Chronic, diastolic. Last echocardiogram 03/2020 shows EF 55-60%. Continue judicious IV fluids while NPO and stop IV fluids when diet is advanced Monitor volume status closely Subjective Date/time seen: 02/09/21 10:35 Ms. Smith is a 60 y.o. female with PMH significant for multiple prior small bowel obstructions (3rd episode this year), known metastatic colon cancer on immunotherapy under the direction of Dr. Arango, congestive heart failure, recent right cataract extraction, CKD, obstructive uropathy with bilateral nephrostomy tubes, lymphedema, and hx of RLE DVT who is seen in follow-up for small bowel obstruction. She is doing okay today. She states that her abdominal pain has resolved. She is only having nausea with the morphine but otherwise feels okay. She is passing small amounts of gas but no bowel mov
--- NOTE | 2021-02-09 11:41 | PM.PNGS ---
Progress Note: A&P Assessment and Plan (1) Complete small bowel obstruction: Code(s): K56.601 - Complete intestinal obstruction, unspecified as to cause Status: Acute Assessment and Plan: I reviewed the abdominal x-ray this morning, scant contrast eventually making way to colon. Will continue NG decompression and await return of bowel function. Encouraged increasing activity. If no improvement with nonoperative course, will have to consider surgical exploration. (2) Metastatic colon cancer in female: Onset Date: ~2017 Code(s): C18.9 - Malignant neoplasm of colon, unspecified Status: Chronic Subjective Subjective Date/Time Seen: 02/09/21 11:41 Interval history: Passing a little flatus, no bowel movement. No abdominal pain. Exam GI: Inspection: non-distended GI Palp: No Tenderness to palpation present (GI) and No Guarding due to palpation present (GI) Percussion: Yes normal to percussion Auscultation: absent bowel sounds Objective Data Vital Signs Vital Signs: Vital Signs - 24 hr 02/08/21 16:26 02/08/21 18:46 02/08/21 22:00 Temperature 36.2 C L 36.5 C Pulse Rate 90 60 Respiratory Rate 16 16 Blood Pressure 164/93 H 160/80 H 173/85 H Pulse Oximetry 99 100 02/08/21 23:28 02/09/21 06:00 02/09/21 08:33 Temperature 36.6 C Pulse Rate 85 64 Respiratory Rate 16 Blood Pressure 128/75 133/92 H Pulse Oximetry 100 Intake/Output Intake/Output: Intake & Output 02/06/21 02/07/21 02/08/21 02/09/21 23:59 23:59 23:59 23:59 Intake Total 0 1150 1000 Output Total 250 1050 2490 1150 Balance -250 -1050 -1340 -150 Meds/Results Medications: Active Medications Generic Name Dose Route Start Last Admin Trade Name Freq PRN Reason Stop Dose Admin Benzocaine 1 lozenge 02/09/21 11:39 Benzocaine/Menthol (*Bkc) 18 Ea Lozenge PO PRN PRN Sore Throat Heparin Sodium (Porcine) 500 units 02/07/21 10:01 Heparin Sod Flush 500 Units/5 Ml Syringe IV PUSH PRN PRN see comments below Heparin Sodium (Porcine) 5,000 units 02/07/21 21:00 02/09/21 08:28 Heparin Sodium 5,000 Units/Ml Vial SUB-Q 5,000 units Q12HR BORIS Administration Hydralazine HCl 10 mg 02/08/21 22:11 02/08/21 22:26 Hydralazine Hcl 20 Mg/Ml Vial IV PUSH 10 mg Q4H PRN Administration Blood Pressure - High Dextrose/Lactated Ringer's 1,000 mls @ 100 mls/hr 02/06/21 20:40 02/09/21 10:30 Dextrose 5%/Lactated Ringers IV CONT 100 mls/hr .Q10H BORIS Infusion Metoprolol Tartrate 12.5 mg 02/09/21 09:00 02/09/21 08:33 Metoprolol Tartrate 12.5 Mg Tablet FEED TUBE 12.5 mg Q12HR BORIS Administration Miconazole Nitrate 1 applic 02/07/21 09:00 02/09/21 08:28 Miconazole 2% Antifungal Ointment 56 Gm TOPICAL 1 applic Q12HR BORIS Administration Morphine Sulfate 2 mg 02/07/21 09:37 02/08/21 05:31 Morphine Sulfate (*Crx) 2 Mg/Ml Inj IV PUSH 2 mg Q2H PRN Administration Pain Rated 4-6 Morphine Sulfate 4 mg 02/07/21 09:35 02/09/21 00:04 Morphine Sulfate (*Crx) 4 Mg/Ml Inj IV PUSH 4 mg Q2H PRN Administration Pain Rated 7-10 Ondansetron HCl 4 mg 02/06/21 20:38 02/09/21 00:07 Ondansetron Inj 4 Mg/2 Ml Vial IV PUSH 4 mg Q6H PRN Administration Nausea And Vomiting Sodium Chloride 10 ml 02/07/21 14:00 02/09/21 05:25 Central Line Flush IV PUSH 10 ml Q8HR BORIS Administration Sodium Chloride 10 ml 02/07/21 10:01 Central Line Flush IV PUSH PRN PRN before/after int. infusion Sodium Chloride 20 ml 02/07/21 10:01 Central Line Flush IV PUSH PRN PRN after blood draws Radiology Results: ITS Impressions Abdomen/Pelvis CT 02/06/21 19:20 IMPRESSION: 1. Small bowel obstruction. 2. Mass of the sigmoid colon just beyond the anastomosis without definite interval change. 3. Stable right pelvic lymphadenopathy, consistent with metastatic disease. Upper GI Series 02/08/21 1
[2021-02-09 14:00] VITALS: BP 154/80; PULSE 100; RESP 16; TEMP 36.2; O2SAT 100
[2021-02-09] MEDS: BENZOCAINE/MENTHOL (*BKC) 18 EA LOZENGE 1 LOZENGE PO (14:31)
--- NOTE | 2021-02-09 15:30 | WPDURCON ---
Assessment and Plan Additional Plan She has bilateral nephrostomy tubes in place. She had an US earlier today showing no hydronephrosis bilaterally. The right kidney is smaller than the left kidney. Her creatinine is at baseline. The nephrostomy tube did flush. No further intervention is needed at this time. Urology Consult Note HPI Date Seen: 02/09/21 Requesting Physician: Elena Naqvi PA-C Primary Care Provider: Dilshad Denney, Consult Narrative Narrative: Dina Smith is a 60 year old female. I was asked to consult for poor drainage from her right nephrostomy tube. She reports no right flank pain. She states the right nephrostomy tube has always put out less fluid than the left nephrostomy tube. Review of Systems Constitutional: Constitutional: Reports anorexia Eyes: Eyes: Reports no additional eye complaints ENT: Reports system reviewed and no additional complaints, except as documented Cardiovascular: Cardiovascular: Reports no additional cardiovascular complaints Respiratory: Respiratory: Reports no additional respiratory complaints Gastrointestinal: Gastrointestinal: Reports other Comments: NGT is in place Genitourinary: Genitourinary: Reports no additional female genitourinary complaints PMFSH Past Medical History Medical History (Updated 02/07/21 @ 15:54 by Elena Naqvi PA-C) Acute on chronic anemia Anemia of chronic disease Anxiety Chronic kidney disease (~03/2020) Baseline creatinine is between 2.0 and 2.40. Congestive heart failure Grade 1 diastolic dysfunction with an EF of 55-60%. Deep vein thrombosis of right lower extremity History of small bowel obstruction Hypertension Metastatic colon cancer in female (~2017) Diagnosis in 2016, status post colectomy with colostomy and adjuvant chemotherapy with FOLFOX. Status post hyperthermic intraperitoneal chemotherapy with debulking surgery in 2018 done in [place]. Status post bilateral nephrostomy tube placement in August 2020 due to extrinsic compression of the ureters from a large tumor, found to be recurrent metastatic cancer. Imaging on 12/21/2020 showed a malignant mass in the sigmoid colon with pelvic lymphadenopathy and multiple peritoneal masses consistent with metastatic disease. She is currently receiving immunotherapy per Dr. Arango. Moderate aortic regurgitation Port-A-Cath in place Surgical History Surgical History History of bone marrow biopsy History of laparotomy (~2017) Debulking surgery for metastatic colon cancer. History of nephrostomy Bilateral nephrostomy tube placement secondary to extrinsic compression of the ureters from malignant colon cancer. History of partial colectomy (~2015) With colostomy and subsequent takedown. History of total abdominal hysterectomy and bilateral salpingo-oophorectomy As part of debulking surgery for recurrent colon cancer as detailed above. History of tubal ligation Status post cataract extraction of both eyes with insertion of intraocular lens Left December 2020 right January 2021 Family History Family History Grandparent Cerebrovascular accident Pancreas cancer Lung cancer Mother Colon cancer Social History Social History Social History: Patient lives alone in her own home in [place]. She is and has 5 children and 19 grandchildren. She was a [employer] worker. 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 She is now on disability. She smoked socially for a few years in her mid 20s. Marijuana use in her younger days. No alcohol or illicit substance use at this time. She designates her daughter Angela Cavanaugh and her sister Lauren Hernandez as her surrogate decision makers and she wishes to be a full code. Smoking packs per day: 0.5 Smoking cigarettes per day: 10.0 Years smoked: 5 Smoking pack-year
[2021-02-09] MEDS: DEXTROSE 5%/LACTATED RINGERS 1,000 ML 100 ML IV CONT (17:36)
[2021-02-09] MEDS: MORPHINE SULFATE (*CRX) 2 MG/ML INJ IV PUSH (17:37)
[2021-02-09 20:34] VITALS: PULSE 61
[2021-02-09 22:00] VITALS: BP 149/86; PULSE 61; RESP 16; TEMP 36.6; O2SAT 100
[2021-02-10] MEDS: MORPHINE SULFATE (*CRX) 4 MG/ML INJ IV PUSH ×3 (05:45→23:52)
[2021-02-10] MEDS: CENTRAL LINE FLUSH 10 ML IV PUSH ×3 (05:46→20:36)
[2021-02-10] MEDS: DEXTROSE 5%/LACTATED RINGERS 1,000 ML 100 ML IV CONT ×2 (05:50→15:25)
[2021-02-10] MEDS: ONDANSETRON INJ 4 MG/2 ML VIAL IV PUSH ×3 (05:52→23:53)
[2021-02-10 06:00] VITALS: BP 155/81; PULSE 76; RESP 16; TEMP 35.7; O2SAT 98
[2021-02-10] MEDS: HEPARIN SODIUM 5,000 UNITS/ML VIAL 5000 UNITS SUB-Q ×2 (08:44→20:36)
[2021-02-10] MEDS: METOPROLOL TARTRATE 12.5 MG TABLET FEED TUBE (08:50)
[2021-02-10 09:23] LABS: Basophils Percent Auto 0.2 % (0.2-1.2); Eosinophils Absolute Auto 0.1 K/mm3 (0-0.3); Eosinophils Percent Auto 1.1 % (0-4.4); Hematocrit 30.2 % (37.0-47.0); Hemoglobin 9.8 g/dL (12.0-15.0); Immature Granulocyte Absolute 0.03 K/mm3 (0.00-0.031); Immature Granulocyte Percent A 0.5 % (0-0.5); Lymphocytes Absolute Auto 0.83 K/mm3 (0.9-3.2); Lymphocytes Percent Auto 12.9 % (18.3-44.2); Mean Corpuscular HGB Conc 32.5 g/dl (32-36); Mean Corpuscular Hemoglobin 29.9 pg (26-34); Mean Corpuscular Volume 92.1 fl (80-100); Mean Platelet Volume 9.9 fl (7.4-10.4); Monocytes Absolute Auto 0.5 K/mm3 (0.1-0.6); Monocytes Percent Auto 7.8 % (2.6-8.5); Neutrophils Percent Auto 77.5 % (45.5-73.1); Platelet Count Result 151 k/mm3 (150-375); Red Blood Count 3.28 M/mm3 (4.2-5.4); Red Cell Distribution Width 15.9 % (11.5-14.5); White Blood Count 6.4 K/mm3 (4.5-10.0)
[2021-02-10 09:33] LABS: Alanine Aminotransferase 10 U/L (4-35); Albumin Level 1.9 g/dL (3.5-5.1); Alkaline Phosphatase 74 U/L (38-126); Anion Gap 0 mmol/L (8-16); Aspartate Amino Transferase 16 U/L (14-36); Bilirubin,Total 0.2 mg/dL (0.2-1.3); Blood Urea Nitrogen 19 mg/dL (7-17); Calcium 7.7 mg/dL (8.4-10.2); Carbon Dioxide 27 mmol/L (22-30); Chloride 113 mmol/L (98-107); Estimated CRCL calculation 25 ml/min; Estimated Glomerular Filt Rate 35; Glucose 142 mg/dL (65-105); Magnesium 1.7 mg/dL (1.6-2.3); Potassium 3.6 mmol/L (3.4-5.0); Sodium 140 mmol/L (137-145)
--- NOTE | 2021-02-10 12:23 | PM.PNGS ---
Progress Note: A&P Assessment and Plan (1) Complete small bowel obstruction: Code(s): K56.601 - Complete intestinal obstruction, unspecified as to cause Status: Acute Assessment and Plan: Still not showing any signs of resolution. May eventually require surgical exploration. Patient voiced her understanding. (2) Metastatic colon cancer in female: Onset Date: ~2017 Code(s): C18.9 - Malignant neoplasm of colon, unspecified Status: Chronic Subjective Subjective Date/Time Seen: 02/10/21 12:23 Interval history: Passing little flatus, but no bowel movement. Patient states she is hungry wants NG tube removed but understands current condition. Exam GI: Inspection: non-distended GI Palp: No Tenderness to palpation present (GI) and No Guarding due to palpation present (GI) Percussion: Yes normal to percussion Auscultation: absent bowel sounds Objective Data Vital Signs Vital Signs: Vital Signs - 24 hr 02/09/21 14:00 02/09/21 20:34 02/09/21 22:00 Temperature 36.2 C L 36.6 C Pulse Rate 100 61 61 Respiratory Rate 16 16 Blood Pressure 154/80 H 149/86 H Pulse Oximetry 100 100 02/10/21 06:00 Temperature 35.7 C L Pulse Rate 76 Respiratory Rate 16 Blood Pressure 155/81 H Pulse Oximetry 98 Intake/Output Intake/Output: Intake & Output 02/07/21 02/08/21 02/09/21 02/10/21 23:59 23:59 23:59 23:59 Intake Total 0 1150 2000 1000 Output Total 1050 2490 2025 1150 [facility] -1050 -1340 -25 -150 Meds/Results Medications: Active Medications Generic Name Dose Route Start Last Admin Trade Name Freq PRN Reason Stop Dose Admin Benzocaine 1 lozenge 02/09/21 11:39 02/09/21 14:31 Benzocaine/Menthol (*Bkc) 18 Ea Lozenge PO 1 lozenge PRN PRN Administration Sore Throat Heparin Sodium (Porcine) 500 units 02/07/21 10:01 Heparin Sod Flush 500 Units/5 Ml Syringe IV PUSH PRN PRN see comments below Heparin Sodium (Porcine) 5,000 units 02/07/21 21:00 02/10/21 08:44 Heparin Sodium 5,000 Units/Ml Vial SUB-Q 5,000 units Q12HR BORIS Administration Hydralazine HCl 10 mg 02/08/21 22:11 02/08/21 22:26 Hydralazine Hcl 20 Mg/Ml Vial IV PUSH 10 mg Q4H PRN Administration Blood Pressure - High Dextrose/Lactated Ringer's 1,000 mls @ 100 mls/hr 02/06/21 20:40 02/10/21 05:50 Dextrose 5%/Lactated Ringers IV CONT 100 mls/hr .Q10H BORIS Administration Metoprolol Tartrate 12.5 mg 02/09/21 09:00 02/10/21 08:50 Metoprolol Tartrate 12.5 Mg Tablet FEED TUBE 12.5 mg Q12HR BORIS Administration Miconazole Nitrate 1 applic 02/07/21 09:00 02/10/21 08:47 Miconazole 2% Antifungal Ointment 56 Gm TOPICAL 1 applic Q12HR BORIS Administration Morphine Sulfate 2 mg 02/07/21 09:37 02/09/21 17:37 Morphine Sulfate (*Crx) 2 Mg/Ml Inj IV PUSH 2 mg Q2H PRN Administration Pain Rated 4-6 Morphine Sulfate 4 mg 02/07/21 09:35 02/10/21 05:45 Morphine Sulfate (*Crx) 4 Mg/Ml Inj IV PUSH 4 mg Q2H PRN Administration Pain Rated 7-10 Ondansetron HCl 4 mg 02/06/21 20:38 02/10/21 05:52 Ondansetron Inj 4 Mg/2 Ml Vial IV PUSH 4 mg Q6H PRN Administration Nausea And Vomiting Sodium Chloride 10 ml 02/07/21 14:00 02/10/21 05:46 Central Line Flush IV PUSH 10 ml Q8HR BORIS Administration Sodium Chloride 10 ml 02/07/21 10:01 Central Line Flush IV PUSH PRN PRN before/after int. infusion Sodium Chloride 20 ml 02/07/21 10:01 Central Line Flush IV PUSH PRN PRN after blood draws Radiology Results: ITS Impressions Abdomen/Pelvis CT 02/06/21 19:20 IMPRESSION: 1. Small bowel obstruction. 2. Mass of the sigmoid colon just beyond the anastomosis without definite interval change. 3. Stable right pelvic lymphadenopathy, consistent with metastatic disease. Upper GI Series 02/08/21 17:12 IMPRESSION: Small bowel obstruction. Venous Doppler Study 02/09/21 13:47 IMPR
[2021-02-10 14:00] VITALS: BP 153/70; PULSE 55; RESP 20; TEMP 36.3; O2SAT 100
--- NOTE | 2021-02-10 15:15 | PCOTNOTE ---
Attempted to see pt for OT session this PM. Pt declined to participate in therapy session stating she was too tired at this time. Another LUNSFORD attempted to see pt 2x this AM, however, pt was also too tired at 1st attempt and at 2nd attempt was busy with her personal work. Pt agreed that she would participate tomorrow. Will continue per POC duration/frequency tomorrow.
--- NOTE | 2021-02-10 16:17 | PM.IMPN ---
Progress Note: A&P Assessment and Plan (1) Complete small bowel obstruction: Code(s): K56.601 - Complete intestinal obstruction, unspecified as to cause Status: Acute Assessment and Plan: She reported colicky abdominal pain with progressive worsening for 3 days. Last bowel movement was 02/02/21. She has a hx of several small bowel obstructions and this is her third this year. They have resolved with conservative treatment in the past. Likely secondary to adhesions from multiple abdominal surgeries in the past vs constipation vs metastatic colon cancer. CT abd/pelvis demonstrated small bowel obstruction with clear transition point. Repeat films today demonstrating persistent obstruction. Management per general surgery She may require operative intervention if no improvement, so far, there are no signs of improvement Continue analgesics and antiemetics as needed Continue IV fluids (2) Chronic kidney disease: Onset Date: ~03/2020 Qualifiers: Chronic kidney disease stage: stage 3 (moderate) Chronic kidney disease stage 3 subtype: stage 3b (GFR 30-44) Qualified Code(s): N18.32 - Chronic kidney disease, stage 3b Code(s): N18.9 - Chronic kidney disease, unspecified Status: Chronic Assessment and Plan: Baseline Cr fluctuates. On review of labs, Cr has been between 1.6-3.8. Nephrostomy tubes present. Cr consistent with baseline. She receives retacrit every other week for her anemia secondary to CKD. Continue to monitor Renally dose medications and avoid nephrotoxins She is due for her next infusion 02/11 per her daughter (3) S/P right cataract extraction: Code(s): Z98.41 - Cataract extraction status, right eye Status: Acute Assessment and Plan: Continue ophthalmology recommendations (4) Metastatic colon cancer in female: Onset Date: ~2017 Code(s): C18.9 - Malignant neoplasm of colon, unspecified Status: Chronic Assessment and Plan: Diagnosed in 2016, s/p colectomy and adjuvant chemotherapy w/ FOLFOX at [facility]. S/P hyperthermic intraperitoneal chemotherapy and debulking surgery in 2018 in [place]. S/P bilateral nephrostomy tube placement August 2020 due to extrinsic compression of the ureters from large tumor burden consistent with recurrent metastatic cancer evident. She follows with Dr. Arango and receives palliative panitumumab every other week. Continue oncology recommendations and immunotherapy (5) Anemia of chronic disease: Code(s): D63.8 - Anemia in other chronic diseases classified elsewhere Status: Acute Assessment and Plan: Suspect multifactorial related to iron deficiency and malignancy. There is no evidence of acute bleeding. Hb is stable. Monitor CBC daily and transfuse as needed to maintain Hb >7 (6) Congestive heart failure: Qualifiers: Heart failure type: diastolic Heart failure chronicity: chronic Qualified Code(s): I50.32 - Chronic diastolic (congestive) heart failure Code(s): I50.9 - Heart failure, unspecified Status: Chronic Assessment and Plan: Chronic, diastolic. Last echocardiogram 03/2020 shows EF 55-60%. Continue IV fluids while NPO and stop IV fluids when diet is advanced Monitor volume status closely (7) Lymphedema: Code(s): I89.0 - Lymphedema, not elsewhere classified Status: Acute Assessment and Plan: Lower extremities bilaterally. Venous doppler US negative for DVT. Elevate the lower extremities, continue ALLEN wrap May benefit from outpatient lymphedema massage Additional Plan Nephrostomy tubes in expected position, patent and draining. Renal US confirms. She has right renal atrophy resulting in decreased output on the right. Subjective Date/time seen: 02/10/21 16:17 Ms. Smith is a 60 y.o. female with PMH significant for multiple prior small bowel obstructions (3rd episode this year
[2021-02-10 22:00] VITALS: BP 148/72; PULSE 55; RESP 18; TEMP 36.1; O2SAT 100
[2021-02-11] VITALS (13 sets, daily range): BP systolic 141–170; BP diastolic 70–97; PULSE 57–87; RESP 14–20; TEMP 36.2–36.8; O2SAT 93–100
[2021-02-11] MEDS: DEXTROSE 5%/LACTATED RINGERS 1,000 ML 100 ML IV CONT ×2 (01:56→12:42)
[2021-02-11] MEDS: CENTRAL LINE FLUSH 10 ML IV PUSH ×3 (05:53→21:54)
[2021-02-11] MEDS: MORPHINE SULFATE (*CRX) 2 MG/ML INJ IV PUSH (06:00)
[2021-02-11] MEDS: ONDANSETRON INJ 4 MG/2 ML VIAL IV PUSH ×2 (06:00→13:56)
[2021-02-11 06:07] LABS: Basophils Percent Auto 0.2 % (0.2-1.2); Eosinophils Absolute Auto 0.1 K/mm3 (0-0.3); Eosinophils Percent Auto 1.5 % (0-4.4); Hematocrit 29.8 % (37.0-47.0); Hemoglobin 9.6 g/dL (12.0-15.0); Immature Granulocyte Absolute 0.03 K/mm3 (0.00-0.031); Immature Granulocyte Percent A 0.5 % (0-0.5); Mean Corpuscular HGB Conc 32.2 g/dl (32-36); Mean Corpuscular Hemoglobin 29.9 pg (26-34); Mean Corpuscular Volume 92.8 fl (80-100); Mean Platelet Volume 9.3 fl (7.4-10.4); Monocytes Absolute Auto 0.5 K/mm3 (0.1-0.6); Monocytes Percent Auto 7.8 % (2.6-8.5); Neutrophils Absolute Auto 4.5 K/mm3 (1.3-6.7); Platelet Count Result 133 k/mm3 (150-375); Red Blood Count 3.21 M/mm3 (4.2-5.4); Red Cell Distribution Width 15.8 % (11.5-14.5)
[2021-02-11 06:18] LABS: Alanine Aminotransferase 9 U/L (4-35); Albumin Level 1.8 g/dL (3.5-5.1); Alkaline Phosphatase 71 U/L (38-126); Anion Gap -3 mmol/L (8-16); Aspartate Amino Transferase 15 U/L (14-36); Bilirubin,Total 0.2 mg/dL (0.2-1.3); Blood Urea Nitrogen 18 mg/dL (7-17); Calcium 7.6 mg/dL (8.4-10.2); Carbon Dioxide 28 mmol/L (22-30); Chloride 115 mmol/L (98-107); Estimated CRCL calculation 24 ml/min; Estimated Glomerular Filt Rate 33; Glucose 101 mg/dL (65-105); Magnesium 1.6 mg/dL (1.6-2.3); Potassium 3.6 mmol/L (3.4-5.0); Sodium 140 mmol/L (137-145)
--- NOTE | 2021-02-11 07:37 | PM.PNGS ---
Progress Note: A&P Assessment and Plan (1) Small bowel obstruction: Onset Date: ~12/21/20 Code(s): K56.609 - Unspecified intestinal obstruction, unspecified as to partial versus complete obstruction Status: Acute Assessment and Plan: no signs of resolution. Patient has had extensive laparotomy with intra-abdominal chemotherapy and likely peritonectomy in 2018 for metastatic colon cancer. Explained to patient that with her recurrent cancer and previous surgery, laparotomy is very hazardous. Nonetheless, she is not improving and we are at a point where surgery is really the only option. I discussed the procedure the risks the benefits with her. She agrees to proceed. We will go ahead this afternoon. (2) Metastatic colon cancer in female: Onset Date: ~2017 Code(s): C18.9 - Malignant neoplasm of colon, unspecified Status: Chronic Assessment and Plan: Increases surgical risk. Please see above (3) Acute on chronic anemia: Code(s): D64.9 - Anemia, unspecified Status: Acute Assessment and Plan: increases surgical risk. (4) Chronic kidney disease: Onset Date: ~03/2020 Qualifiers: Chronic kidney disease stage: stage 3 (moderate) Chronic kidney disease stage 3 subtype: stage 3b (GFR 30-44) Qualified Code(s): N18.32 - Chronic kidney disease, stage 3b Code(s): N18.9 - Chronic kidney disease, unspecified Status: Chronic Assessment and Plan: Increases surgical risk. Subjective Subjective Date/Time Seen: 02/11/21 07:37 Patient reports: pain is less ( no further abdominal pain), flatus and no bowel movement Interval history: abdominal pain is gone but patient not having any bowel movements and passing very little flatus. Review of Systems Review of Systems: All systems reviewed & are unremarkable except as noted in HPI and below Constitutional: Constitutional: Denies body ache(s), Denies chills, Denies fever(s) and Denies headache(s) Cardiovascular: Cardiovascular: Denies chest pain and Denies dyspnea Respiratory: Respiratory: Denies cough and Denies dyspnea Gastrointestinal: Gastrointestinal: Reports as per HPI, Denies abdominal pain, Reports constipation, Denies nausea and Denies vomiting Neurologic: Denies confusion and Denies headache(s) Exam Const: General: comfortable and no acute distress; No confusion Orientation/consciousness: patient oriented x3 and No confusion GI: Inspection: non-distended and scar GI Palp: Yes Soft to palpation, No Tenderness to palpation present (GI), No Guarding due to palpation present (GI) and No Rebound tenderness present Auscultation: normal bowel sounds Neuro: General: patient oriented x3, no focal motor deficits and No confusion Extrem: General: no calf tenderness and no edema Psych: Affect: normal affect Insight: Good insight present (Psych) Judgement: Good judgement present (Psych) Objective Data Vital Signs Vital Signs: Vital Signs - 24 hr 02/10/21 14:00 02/10/21 22:00 02/11/21 06:00 Temperature 36.3 C L 36.1 C L 36.4 C Pulse Rate 55 L 55 L 61 Respiratory Rate 20 18 18 Blood Pressure 153/70 H 148/72 H 146/78 H Pulse Oximetry 100 100 100 Intake/Output Intake/Output: Intake & Output 02/08/21 02/09/21 02/10/21 02/11/21 23:59 23:59 23:59 23:59 Intake Total 1150 2000 2000 1000 Output Total 2490 5 1900 150 Balance -1340 -25 100 850 Meds/Results Medications: Active Medications Generic Name Dose Route Start Last Admin Trade Name Freq PRN Reason Stop Dose Admin Benzocaine 1 lozenge 02/09/21 11:39 02/09/21 14:31 Benzocaine/Menthol (*Bkc) 18 Ea Lozenge PO 1 lozenge PRN PRN Administration Sore Throat Heparin Sodium (Porcine) 500 units 02/07/21 10:01 Heparin Sod Flush 500 Units/5 Ml Syringe IV PUSH PRN PRN see comments below Heparin Sodium (Porcine) 5,000 units 02/07/21 21:00 02/10/21 20:36 Heparin Sodium
--- NOTE | 2021-02-11 08:20 | PCOTNOTE ---
Attempted to see patient prior to her surgery this AM, patient declined all interventions suggested, including bed-level activities. Patient verbalized, I'm too wound up this morning. Patient agreeable to continue with therapy after her surgery. Will continue plan of care tomorrow, 02/12/21.
[2021-02-11] MEDS: METOPROLOL TARTRATE 12.5 MG TABLET FEED TUBE ×2 (08:57→21:54)
--- NOTE | 2021-02-11 09:37 | PM.IMPN ---
Progress Note: A&P Assessment and Plan (1) Complete small bowel obstruction: Code(s): K56.601 - Complete intestinal obstruction, unspecified as to cause Status: Acute Assessment and Plan: She reported colicky abdominal pain with progressive worsening for 3 days. Last bowel movement was 02/02/21. She has a hx of several small bowel obstructions and this is her third this year. They have resolved with conservative treatment in the past. Likely secondary to adhesions from multiple abdominal surgeries in the past vs constipation vs metastatic colon cancer. CT abd/pelvis demonstrated small bowel obstruction with clear transition point. Repeat films today demonstrating persistent obstruction. Hx: Patient had extensive laparotomy with intra-abdominal chemotherapy and likely peritonectomy in 2018 for metastatic colon cancer. Abdomen/Pelvis CT 02/06/21 19:20IMPRESSION:1. Small bowel obstruction.2. Mass of the sigmoid colon just beyond the anastomosis without definite interval change.3. Stable right pelvic lymphadenopathy, consistent with metastatic disease. Upper GI Series 02/08/21 IMPRESSION: Small bowel obstruction. Abdomen X-Ray 02/10/21 07:36 IMPRESSION:1. Small bowel obstruction. Management per general surgery Continue analgesics and antiemetics as needed Continue IV fluids SBO is not resolving, but her abd pain is less, abdomen was able to be palpated, having small amount flatus and no bowel movement. No rebound tenderness and NG remains in place to suction. Gen. Surgery is planning Laparotomy this afternoon for persistent small bowel obstruction. (2) Chronic kidney disease: Onset Date: ~03/2020 Qualifiers: Chronic kidney disease stage: stage 3 (moderate) Chronic kidney disease stage 3 subtype: stage 3b (GFR 30-44) Qualified Code(s): N18.32 - Chronic kidney disease, stage 3b Code(s): N18.9 - Chronic kidney disease, unspecified Status: Chronic Assessment and Plan: Baseline Cr fluctuates. On review of labs, Cr has been between 1.6-3.8. Nephrostomy tubes present. Cr consistent with baseline. She receives retacrit every other week for her anemia secondary to CKD. Continue to monitor Renally dose medications and avoid nephrotoxins She is due for her next infusion 02/11 per her daughter - undergoing surgery today, need to discuss and F/U with surgeon tomorrow. Dr. Teran manages her bilateral nephrotomy tubes care. Both tube insertion sites are without redness and without pain, tubes draining clear light/yellow urine and patent to inspection, as expected. Creatinine 1.8 yesterday, 1.9 today. No concerns at this time. Continue to monitor I/Os. Renal Ultrasound 02/09/21 13:56 IMPRESSION:1. Moderate right renal atrophy.2. Nephrostomy tubes in position. 3. No hydronephrosis. (3) S/P right cataract extraction: Code(s): Z98.41 - Cataract extraction status, right eye Status: Acute Assessment and Plan: Continue ophthalmology recommendations (4) Metastatic colon cancer in female: Onset Date: ~2017 Code(s): C18.9 - Malignant neoplasm of colon, unspecified Status: Chronic Assessment and Plan: Diagnosed in 2015, s/p colectomy and adjuvant chemotherapy w/ FOLFOX at [facility]. S/P hyperthermic intraperitoneal chemotherapy and debulking surgery in 2017 in [place]. S/P bilateral nephrostomy tube placement August 2020 due to extrinsic compression of the ureters from large tumor burden consistent with recurrent metastatic cancer evident. She follows with Dr. Arango and receives palliative panitumumab every other week. Continue oncology recommendations and immunotherapy (5) Anemia of chronic disease: Code(s): D63.8 - Anemia in other chronic diseases classified elsewhere Status: Acute Assessment and Plan: Suspect multifactorial related to iron deficiency and malignancy. There is no evidence of acute bleeding. Hb is stab
--- NOTE | 2021-02-11 11:10 | PCPTNOTE ---
Patient refused treatment this session due to Patient going to procedure soon. Patient states that she has a procedure today and needs to rest. Patient reports that she will do therapy tomorrow. Will attempt back to see patient as appropriate. Brie Andrea, HOME PERFORMANCE LABORER
--- NOTE | 2021-02-11 12:01 | PCNFU ---
Nutrition Follow-Up Complete: Altered GI function as related to SBO as evidenced by NPO goal: Meet estimated nutritional needs Limited progressing towards goal. We will continue current goal. Pt current nutrition is NPO x 5 days. Last recorded weight is 56.4 kg, up from 52.8 kg yesterday. Bowel Motility: No BM reported, little flatus. Labs Reviewed:Cr 1.9,GFR 33,BUN 18,Hct 29.8,Hgb 9.6 Meds Noted:Zofran,Heparin,LR,Lopressor,Morphine. Additional Notes: Nutrition follow up. Patient continue to be NPO x 5 days, NGT in place. Plans for surgery today. If patient remains NPO would recommend Clinimix E 5/15 at 40 ml/hr and 250 ml Lipid Emulsion. Monitoring: Will monitor every 3 days.
[2021-02-11] MEDS: MORPHINE SULFATE (*CRX) 4 MG/ML INJ IV PUSH (13:51)
[2021-02-11] MEDS: LACTATED RINGERS 1,000 ML 30 ML IV CONT (14:45)
--- NOTE | 2021-02-11 15:09 | WPDANESEPPF ---
Anes - Initial Pre Proc Eval Procedure: Operation Date: 02/11/21 16:00 Proposed Procedures p Exploratory Laparotomy for Small Bowel Obstruction - Romie Miller MD Date/Time: 02/11/21 15:09 Surgeon: Neha Ramires NP Pre Op Diagnosis: Small bowel obstruction Patient Data Age: 60 Gender: F Height: 5 ft 6.5 in Weight: 56.4 kg Last Vital Signs Temp 36.8 C 02/11/21 14:50 Pulse 57 L 02/11/21 14:50 Resp 20 02/11/21 14:50 BP 166/78 H 02/11/21 14:50 Pulse Ox 100 02/11/21 14:50 Allergies Allergy/AdvReac Type Severity Reaction Status Date / Time lisinopril Allergy Swelling Verified 02/06/21 16:55 hydrocodone AdvReac Intermediate Nausea and Verified 02/06/21 16:55 Vomiting tramadol AdvReac Intermediate Nausea and Verified 02/06/21 16:55 Vomiting codeine AdvReac Mild Nausea and Verified 02/06/21 16:55 Vomiting penicillin G AdvReac Mild Nausea and Verified 02/06/21 16:55 Vomiting Sulfa (Sulfonamide AdvReac Mild Nausea and Verified 01/18/21 21:45 Antibiotics) Vomiting aspirin [From [place]] AdvReac Nausea Verified 02/06/21 16:55 citric acid AdvReac Nausea Verified 02/06/21 16:55 [From [place]] lorazepam AdvReac Nausea Verified 02/06/21 16:55 sodium bicarbonate AdvReac Nausea Verified 02/06/21 16:55 [From [place]] Home Medications Medication Instructions Recorded Confirmed Type docusate sodium [DOK] 100 mg PO BID 02/04/21 02/06/21 History ondansetron 4 mg PO Q6H 02/04/21 02/06/21 History potassium chloride 20 meq PO DAILY 02/04/21 02/06/21 History Besivance 1 drp RIGHT EYE BID 02/08/21 02/08/21 History Lotemax 1 drp RIGHT EYE BID 02/08/21 02/08/21 History Systane Complete 1 drp EACH EYE Q4-6H PRN 02/08/21 02/08/21 History bromfenac [Prolensa] 1 drp RIGHT EYE DAILY 02/08/21 02/08/21 History Laboratory Tests 02/11/21 02/11/21 02/11/21 05:53 05:53 10:31 WBC 6.0 K/mm3 K/mm3 (4.5-10.0) RBC 3.21 M/mm3 L M/mm3 (4.2-5.4) Hgb 9.6 g/dL L g/dL (12.0-15.0) Hct 29.8 % L % (37.0-47.0) MCV 92.8 fl fl (80-100) MCH 29.9 pg pg (26-34) MCHC 32.2 g/dl g/dl (32-36) RDW 15.8 % H % (11.5-14.5) Plt Count 133 k/mm3 L k/mm3 (150-375) MPV 9.3 fl fl (7.4-10.4) Immature Gran % (Auto) 0.5 % % (0-0.5) Neut % (Auto) 75.0 % H % (45.5-73.1) Lymph % (Auto) 15.0 % L % (18.3-44.2) [place] % (Auto) 7.8 % % (2.6-8.5) Eos % (Auto) 1.5 % % (0-4.4) Baso % (Auto) 0.2 % % (0.2-1.2) Lymph # (Auto) 0.90 K/mm3 K/mm3 (0.9-3.2) [place] # (Auto) 0.5 K/mm3 K/mm3 (0.1-0.6) Eos # (Auto) 0.1 K/mm3 K/mm3 (0-0.3) Baso # (Auto) 0.0 K/mm3 K/mm3 (0.0-0.1) Abs Immat Gran (auto) 0.03 K/mm3 K/mm3 (0.00-0.031) Absolute Neuts (auto) 4.5 K/mm3 K/mm3 (1.3-6.7) Absolute Nucleated RBC 0.0 K/mm3 K/mm3 (0.0-0.012) Nucleated RBC % 0.0 % % (0.0-0.2) Sodium 140 mmol/L mmol/L (137-145) Potassium 3.6 mmol/L mmol/L (3.4-5.0) Chloride 115 mmol/L H mmol/L (98-107) Carbon Dioxide 28 mmol/L mmol/L (22-30) Anion Gap -3 mmol/L L mmol/L (8-16) BUN 18 mg/dL H mg/dL (7-17) Creatinine 1.90 mg/dL H mg/dL (0.7-1.0) Estim Creat Clear Calc 24 ml/min ml/min Estimated GFR 33 L (59 - ) Glucose 101 mg/dL mg/dL (65-105) Calcium 7.6 mg/dL L mg/dL (8.4-10.2) Magnesium 1.6 mg/dL mg/dL (1.6-2.3) Total Bilirubin 0.2 mg/dL mg/dL (0.2-1.3) AST 15 U/L U/L (14-36) ALT 9 U/L U/L (4-35) Alkaline Phosphatase 71 U/L U/L (38-126) Total Protein 5.0 g/dL L g/dL (6.3-8.2) Albumin 1.8 g/dL L g/dL (3.5-5.1) Blood Type O Positive Antibody Screen N
--- NOTE | 2021-02-11 15:31 | WPDHPUPDATE1 ---
History and Physical Update Update Date/Time: 02/11/21 15:31 History and Physical has been reviewed, including an updated exam of the patient. There are NO changes in the patient's condition. Risks, benefits, and alternatives have been discussed and questions answered. Patient agrees to proceed with procedure.
[2021-02-11] MEDS: ceFAZolin 2 GM/D5W 50 ML 2 GM/50 ML BAG IVPB (15:42)
--- NOTE | 2021-02-11 16:19 | SUR.OPER ---
nephrostomy tubes emptied by yusef garcia crna at start of surgery. 200ml output from left side, 50ml output from right side.
--- NOTE | 2021-02-11 18:13 | P.OP_ITS ---
Procedure Note - Detailed Date of procedure: 02/11/21 Pre-op diagnosis: Small bowel obstruction Small bowel obstruction, metastatic sigmoid colon cancer Post-op diagnosis: same Procedure performed: Adhesiolysis, enterectomy with anastomosis Description of procedure: The patient was taken to surgery and induced into general anesthesia. The entire abdomen was prepped and draped. The old midline scar was excised and the skin discarded. We carefully dissected down through the midline of the linea alba. The peritoneal cavity was opened. We are able to open the abdomen the length of the wound with little difficulty. There was small bowel adhesions to the anterior abdominal wall on either side of the incision. There was little or no omentum to be found. We then proceeded with an extensive adhesiolysis. The surgery lasted nearly 2 hours and 90 minutes of this was spent in adhesiolysis. There were extensive adhesions which was not surprising considering the patient had a debulking procedure with intrape ritoneal chemotherapy in 2018. Fortunately, the adhesions were not so tenacious that the abdomen was frozen. Adhesions were to the anterior abdominal wall, to the bowel itself but largely spared the pelvic area. There was a large mass in the distal descending colon consistent with the CT findings of our recurrence distal to the anastomosis. Eventually all the small-bowel adhesions were taken down. The transition point was easily identified as there was a metastasis here which had occluded the lumen of the bowel. The proximal bowel was extremely dilated and the distal bowel was completely collapsed. There appeared to be a nonobstructing metastasis about 6 cm proximal to the obstructing lesion as well. Once the bowel was freed adequately, I milked enteric contents retrograde into the stomach and we evacuated most of the fluid distending the jejunum. The obstruction was located in the mid to distal jejunum. I divided the jejunum with the TLC 75 stapler. I divided the more distal jejunum, the collapsed bowel, also with a TLC 75 stapler. The LigaSure was used to divide the intervening mesentery. Cautery was used to achieve hemostasis at the 2 staple lines. I then created a [id number] but functional end-to-end anastomosis again using the TLC 75 stapler. The TLC 60 stapler was used to close the enteroenterotomy. I placed a 4 0 silk Lembert suture in the crotch of the anastomosis to support it. I closed the mesentery with interrupted 4 0 silk sutures. We checked the abdomen again for any signs of bleeding or other problems. All looked good. The bowel was placed back in the abdomen in gentle S-shaped curves. The midline fascia was closed with bidirectional running 1. PDS suture. The skin was loosely approximated with mercedez. A bulky gauze dressing was placed. The patient was awakened and taken to recovery in good condition. Sponge and needle counts were correct x2. Anesthesia: GETA Surgeon: Romie Miller MD Belly Dump Driver: Adam MELTON, Mara MELTON Estimated blood loss (mL): 100 Drains: Yes (Nasogastric tube) Packing: No Pathology: yes (Small bowel segment with tumor implant and transition point) Complications: None Condition: stable Disposition: PACU Findings: Multiple peritoneal implants, large pelvic mass consistent with recurrent colon cancer. Recurrent tumor implant with complete obstruction of the distal jejunum.
[2021-02-11] MEDS: SODIUM CHLORIDE 0.9% IV 1,000 ML 30 ML IV CONT (18:18)
--- NOTE | 2021-02-11 18:51 | SUR.PHASEI ---
1817; PT ARRIVED PER BED WITH ETT AND ORAL AIRWAY, PLACED TO T-PIECE WITH 100% HUMIDIFIED O2. HOB ELEVATED [address] PEGUERO AT BEDSIDE. 1L NS INFUSING TO LT EJ IV. 1823; PT WAKING UP. MOVING ALL EXTREMITIES, PT GRABBING AT TUBE IN MOUTH. DR PEGUERO EXTUBATED PT. ORAL AIRWAY ALSO REMOVED. BOTH INTACT.
[2021-02-11] MEDS: fentaNYL CITRATE INJ (*CRX) 100 MCG/2 ML VIAL 25 MCG IV PUSH ×4 (19:02→19:29)
--- NOTE | 2021-02-11 19:23 | SUR.PHASEI ---
1910; SAO2 DROPS TO 91% ON ROOM AIR. RESP EVEN UNLABORED. P,W,D. O2 2L NC APPLIED
--- NOTE | 2021-02-11 20:17 | SUR.PHASEI ---
1999; REPORT GIVEN TO FLOOR RN. WAITING FOR TRANSPORT
--- NOTE | 2021-02-11 20:18 | SUR.PHASEI ---
2014; PT SLEEPING. RESP EVEN UNLABORED. NG REMAINS TO LWS. FLACC SCORE =0. WAITING ON TRANSPORT
--- NOTE | 2021-02-11 20:36 | PC.NURSE ---
From OR per BED. Report from Qing @ 2029. Patient resting comfortably in room 304. Patients daughter at bedside.
[2021-02-11] MEDS: HEPARIN SODIUM 5,000 UNITS/ML VIAL 5000 UNITS SUB-Q (21:53)
[2021-02-11] MEDS: FAMOTIDINE 20 MG/2 ML VIAL IV PUSH (21:54)
[2021-02-11] MEDS: IBUPROFEN IV 800 MG/200 ML 800 MG/200 ML BAG 400 MG IVPB (21:57)
[2021-02-12] VITALS (7 sets, daily range): BP systolic 140–146; BP diastolic 70–82; PULSE 58–72; RESP 16–18; TEMP 36–36.2; O2SAT 93–100
[2021-02-12 04:36] LABS: Basophils Percent Auto 0.1 % (0.2-1.2); Hemoglobin 10.2 g/dL (12.0-15.0); Immature Granulocyte Absolute 0.05 K/mm3 (0.00-0.031); Immature Granulocyte Percent A 0.4 % (0-0.5); Lymphocytes Absolute Auto 0.94 K/mm3 (0.9-3.2); Lymphocytes Percent Auto 7.9 % (18.3-44.2); Mean Corpuscular HGB Conc 31.9 g/dl (32-36); Mean Corpuscular Hemoglobin 29.7 pg (26-34); Mean Platelet Volume 10.1 fl (7.4-10.4); Monocytes Absolute Auto 0.8 K/mm3 (0.1-0.6); Monocytes Percent Auto 6.5 % (2.6-8.5); Neutrophils Absolute Auto 10.1 K/mm3 (1.3-6.7); Neutrophils Percent Auto 85.1 % (45.5-73.1); Platelet Count Result 118 k/mm3 (150-375); Red Blood Count 3.44 M/mm3 (4.2-5.4); Red Cell Distribution Width 15.7 % (11.5-14.5); White Blood Count 11.9 K/mm3 (4.5-10.0)
--- NOTE | 2021-02-12 04:38 | PC.NURSE ---
Patient woke up from deep sleep overnight to ask about procedure, how things went, what shape she's in etc. She has been repetitively wincing and says she in great pain. I pulled her morphine and asked Hilda to reissue her zofran because the patient stated nausea. Her vitals remain stable and I will be taking her off of oxygen since she is still satting at 100%. -LEVON RN
[2021-02-12] MEDS: MORPHINE SULFATE (*CRX) 4 MG/ML INJ IV PUSH ×2 (04:51→12:20)
[2021-02-12] MEDS: CENTRAL LINE FLUSH 10 ML IV PUSH ×3 (04:52→20:22)
[2021-02-12] MEDS: ONDANSETRON INJ 4 MG/2 ML VIAL IV PUSH ×3 (04:52→20:21)
[2021-02-12 04:53] LABS: Alanine Aminotransferase 29 U/L (4-35); Albumin Level 1.7 g/dL (3.5-5.1); Alkaline Phosphatase 65 U/L (38-126); Anion Gap 1 mmol/L (8-16); Aspartate Amino Transferase 44 U/L (14-36); Bilirubin,Total 0.2 mg/dL (0.2-1.3); Blood Urea Nitrogen 20 mg/dL (7-17); Calcium 7.6 mg/dL (8.4-10.2); Carbon Dioxide 26 mmol/L (22-30); Chloride 114 mmol/L (98-107); Estimated CRCL calculation 25 ml/min; Estimated Glomerular Filt Rate 33; Glucose 157 mg/dL (65-105); Potassium 3.6 mmol/L (3.4-5.0); Sodium 141 mmol/L (137-145)
[2021-02-12 04:59] LABS: NT Pro B Type Natriuretic Pept 6520 PG/ML (5-100)
[2021-02-12] MEDS: DEXTROSE 5%/LACTATED RINGERS 1,000 ML 100 ML IV CONT ×2 (05:04→14:15)
--- NOTE | 2021-02-12 05:17 | PC.NURSE ---
could not get port-a-cath to flush after drawing labs from it this AM. Put fluids through her EJ from surgery for now and will reassess. -LEVON NOVA
--- NOTE | 2021-02-12 05:57 | PC.NURSE ---
New P-O-C access placed by Tavia (housekeeping lead) great flush now. -LEVON RN
--- NOTE | 2021-02-12 07:00 | PM.PNGS ---
Progress Note: A&P Assessment and Plan (1) Small bowel obstruction: Onset Date: ~12/21/20 Code(s): K56.609 - Unspecified intestinal obstruction, unspecified as to partial versus complete obstruction Status: Acute Assessment and Plan: doing well postop day 1. Will get patient up in a chair. No evidence of bowel function returning and I would not expected to for several days. Continue NG tube and IV fluids. Follow serial exam and lab work. (2) Metastatic colon cancer in female: Onset Date: ~2017 Code(s): C18.9 - Malignant neoplasm of colon, unspecified Status: Chronic Assessment and Plan: Hopefully can continue immunotherapy once present illness as healed (3) Chronic kidney disease: Onset Date: ~03/2020 Qualifiers: Chronic kidney disease stage: stage 3 (moderate) Chronic kidney disease stage 3 subtype: stage 3b (GFR 30-44) Qualified Code(s): N18.32 - Chronic kidney disease, stage 3b Code(s): N18.9 - Chronic kidney disease, unspecified Status: Chronic Assessment and Plan: stable (4) Acute on chronic anemia: Code(s): D64.9 - Anemia, unspecified Status: Acute Assessment and Plan: stable, monitoring Subjective Subjective Date/Time Seen: 02/12/21 07:00 Post Op day: 1 Patient reports: feels better, pain is less, no flatus, no bowel movement and afebrile Review of Systems Review of Systems: All systems reviewed & are unremarkable except as noted in HPI and below Constitutional: Constitutional: Denies body ache(s), Denies chills, Reports fatigue, Denies fever(s), Denies headache(s) and Reports weakness Cardiovascular: Cardiovascular: Denies chest pain and Denies dyspnea Respiratory: Respiratory: Denies cough and Denies dyspnea Gastrointestinal: Gastrointestinal: Reports as per HPI, Denies GI cramping, Denies heartburn, Denies nausea and Denies vomiting Neurologic: Denies confusion and Denies headache(s) Exam Const: General: comfortable and no acute distress; No confusion Orientation/consciousness: patient oriented x3 and No confusion Resp: Effort & Inspection: normal respiratory effort Auscultation: clear to auscultation bilaterally Cardio: Rate: regular rate Rhythm: regular rhythm GI: Inspection: non-distended and incision (Abdominal wound dressing dry and intact) GI Palp: Yes Soft to palpation, Yes Tenderness to palpation present (GI) ( mild appropriate tenderness), No Guarding due to palpation present (GI) and No Rebound tenderness present Auscultation: absent bowel sounds Neuro: General: patient oriented x3, no focal motor deficits and No confusion Psych: Affect: normal affect Insight: Good insight present (Psych) Judgement: Good judgement present (Psych) Objective Data Vital Signs Vital Signs: Vital Signs - 24 hr 02/11/21 14:00 02/11/21 14:50 02/11/21 18:18 Temperature 36.2 C L 36.8 C 36.4 C L Pulse Rate 87 57 L 61 Respiratory Rate 16 20 20 Blood Pressure 159/78 H 166/78 H 155/91 H Pulse Oximetry 100 100 100 02/11/21 18:30 02/11/21 18:45 02/11/21 19:00 Temperature Pulse Rate 66 58 L 60 Respiratory Rate 14 16 18 Blood Pressure 170/70 H 160/81 H 143/89 H Pulse Oximetry 100 100 93 02/11/21 19:15 02/11/21 19:30 02/11/21 19:45 Temperature Pulse Rate 62 64 72 Respiratory Rate 14 14 14 Blood Pressure 145/86 H 151/82 H 141/94 H Pulse Oximetry 98 100 100 02/11/21 20:00 02/11/21 20:15 02/11/21 21:54 Temperature Pulse Rate 62 68 73 Respiratory Rate 14 16 Blood Pressure 141/97 H 147/92 H Pulse Oximetry 99 99 02/12/21 04:00 Temperature 36.0 C L Pulse Rate 60 Respiratory Rate 18 Blood Pressure 142/82 H Pulse Oximetry 93 Intake/Output Intake/Output: Intake & Output 02/09/21 02/10/21 02/11/21 02/12/21 23:59 23:59 23:59 23:59 Intake Total 1999 1999 3350 200 Output Total 2024 1900 195 Balance -25 100 3155 200 Meds/Results Medications: Activ
--- NOTE | 2021-02-12 08:41 | P.PNAN_ITS ---
Anes - Prog Note Post-Op Date/Time: 02/12/21 08:41 Cardiovascular status: normal Respiratory status: normal Airway patency: baseline Mental status: baseline Post-Op hydration status: normal Vital Signs: Last Vital Signs Temp 36.0 C L 02/12/21 04:00 Pulse 60 02/12/21 04:00 Resp 18 02/12/21 04:00 BP 142/82 H 02/12/21 04:00 Pulse Ox 93 02/12/21 04:00 Pain Score (VAS): 12/12 I/O: Intake & Output 02/11/21 02/12/21 02/12/21 23:59 07:59 15:59 Intake Total 1350 200 Output Total 45 Balance 1305 200 Laboratory Tests 02/12/21 04:28 02/12/21 04:28 02/11/21 02/12/21 02/12/21 10:31 04:28 04:28 WBC 11.9 H RBC 3.44 L Hgb 10.2 L Hct 32.0 L MCV 93.0 MCH 29.7 MCHC 31.9 L RDW 15.7 H Plt Count 118 L MPV 10.1 Immature Gran % (Auto) 0.4 Neut % (Auto) 85.1 H Lymph % (Auto) 7.9 L [place] % (Auto) 6.5 Eos % (Auto) 0.0 Baso % (Auto) 0.1 L Lymph # (Auto) 0.94 [place] # (Auto) 0.8 H Eos # (Auto) 0.0 Baso # (Auto) 0.0 Abs Immat Gran (auto) 0.05 H Absolute Neuts (auto) 10.1 H Absolute Nucleated RBC 0.0 Nucleated RBC % 0.0 Sodium 141 Potassium 3.6 Chloride 114 H Carbon Dioxide 26 Anion Gap 1 L BUN 20 H Creatinine 1.90 H Estim Creat Clear Calc 25 Estimated GFR 33 L Glucose 157 H Calcium 7.6 L Total Bilirubin 0.2 AST 44 H ALT 29 Alkaline Phosphatase 65 NT-Pro-B Natriuret Pep 6520 H Total Protein 5.0 L Albumin 1.7 L Blood Type O Positive Antibody Screen Negative Post-procedural complaints: none Patient Feedback: Patient satisfied with anesthetic care. Other Findings: Pt resting in chair comfortably, daughter at bedside, all questions addressed
[2021-02-12] MEDS: HEPARIN SODIUM 5,000 UNITS/ML VIAL 5000 UNITS SUB-Q ×2 (09:26→20:21)
[2021-02-12] MEDS: FAMOTIDINE 20 MG/2 ML VIAL IV PUSH ×2 (09:26→20:21)
[2021-02-12] MEDS: METOPROLOL TARTRATE 12.5 MG TABLET FEED TUBE ×2 (09:34→20:22)
--- NOTE | 2021-02-12 14:12 | PM.IMPN ---
Progress Note: A&P Assessment and Plan (1) Complete small bowel obstruction: Code(s): K56.601 - Complete intestinal obstruction, unspecified as to cause Status: Acute Assessment and Plan: She reported colicky abdominal pain with progressive worsening for 3 days prior to presentation. Last bowel movement was 02/02/21. She has a hx of several small bowel obstructions and this is her third this year. Previous obstructions resolved with conservative treatment in the past. Likely secondary to adhesions from multiple abdominal surgeries in the past vs metastatic colon cancer. CT abd/pelvis demonstrated small bowel obstruction with clear transition point. She failed to improve with conservative therapy, therefore underwent adhesiolysis and enterectomy with anastomosis by Dr. Miller on 02/11/2021. She tolerated the procedure well. POD 1. Appreciate general surgery consultation Continue NG decompression Continue gentle IV fluids while NPO Analgesics and antiemetics available as needed for pain (2) Metastatic colon cancer in female: Onset Date: ~2017 Code(s): C18.9 - Malignant neoplasm of colon, unspecified Status: Chronic Assessment and Plan: Diagnosed in 2015, s/p colectomy and adjuvant chemotherapy w/ FOLFOX at [facility]. S/P hyperthermic intraperitoneal chemotherapy and debulking surgery in 2018 in [place]. S/P bilateral nephrostomy tube placement August 2020 due to extrinsic compression of the ureters from large tumor burden consistent with recurrent metastatic cancer evident. She follows with Dr. Arango and receives palliative panitumumab every other week. Continue oncology recommendations and immunotherapy (3) Chronic kidney disease: Onset Date: ~03/2020 Qualifiers: Chronic kidney disease stage: stage 3 (moderate) Chronic kidney disease stage 3 subtype: stage 3b (GFR 30-44) Qualified Code(s): N18.32 - Chronic kidney disease, stage 3b Code(s): N18.9 - Chronic kidney disease, unspecified Status: Chronic Assessment and Plan: Baseline Cr fluctuates. On review of labs, Cr has been between 1.6-3.8. Nephrostomy tubes present. Cr consistent with baseline. She receives retacrit every other week for her anemia secondary to CKD. Renal ultrasound on 02/09/2021 showed moderate right renal atrophy without evidence of hydronephrosis and nephrostomy tubes in expected position. Renal function appears to be consistent with her baseline at this time. Continue to monitor renal function closely. Renally dose medications and avoid nephrotoxins Dr. Teran manages her bilateral nephrotomy tubes. No issues at this time. (4) S/P right cataract extraction: Code(s): Z98.41 - Cataract extraction status, right eye Status: Acute Assessment and Plan: Extraction in early January 2021. Previously had right eye shield but has since been removed. Continue ophthalmology recommendations (5) Anemia of chronic disease: Code(s): D63.8 - Anemia in other chronic diseases classified elsewhere Status: Acute Assessment and Plan: Suspect multifactorial related to iron deficiency, malignancy, and chronic kidney disease. There is no evidence of acute bleeding. Vital signs are stable. H&H remaining stable. Monitor CBC daily and transfuse as needed to maintain Hb >7 (6) Congestive heart failure: Qualifiers: Heart failure type: diastolic Heart failure chronicity: chronic Qualified Code(s): I50.32 - Chronic diastolic (congestive) heart failure Code(s): I50.9 - Heart failure, unspecified Status: Chronic Assessment and Plan: Chronic, diastolic. Last echocardiogram 03/2020 shows EF 55-60%. She appears euvolemic. BNP is elevated. Continue IV fluids while NPO while monitoring volume status closely. Will reduce IV fluids to 60 mL/hour for maintenance. Plan to discontinue IV fluids when diet is advanced Monitor int
[2021-02-12] MEDS: MORPHINE SULFATE (*CRX) 2 MG/ML INJ IV PUSH (20:21)
[2021-02-13] VITALS (9 sets, daily range): BP systolic 145–165; BP diastolic 64–72; PULSE 52–106; RESP 16–18; TEMP 36.2–37; O2SAT 98–100
--- NOTE | 2021-02-13 00:10 | PC.NURSE ---
patient back to q8 vitals now that she is 24-hrs post-op
[2021-02-13] MEDS: CENTRAL LINE FLUSH 20 ML IV PUSH (05:17)
[2021-02-13] MEDS: ONDANSETRON INJ 4 MG/2 ML VIAL IV PUSH ×2 (05:17→21:26)
[2021-02-13] MEDS: CENTRAL LINE FLUSH 10 ML IV PUSH ×2 (05:17→20:39)
[2021-02-13] MEDS: MORPHINE SULFATE (*CRX) 2 MG/ML INJ IV PUSH (05:17)
[2021-02-13] MEDS: DEXTROSE 5%/LACTATED RINGERS 1,000 ML 60 ML IV CONT (05:27)
--- NOTE | 2021-02-13 05:44 | PC.NURSE ---
patient had no output from bilateral nephrostomys this AM.
[2021-02-13 05:47] LABS: Hematocrit 27.2 % (37.0-47.0); Hemoglobin 8.5 g/dL (12.0-15.0); Mean Corpuscular HGB Conc 31.3 g/dl (32-36); Mean Corpuscular Hemoglobin 28.7 pg (26-34); Mean Corpuscular Volume 91.9 fl (80-100); Mean Platelet Volume 9.7 fl (7.4-10.4); Platelet Count Result 93 k/mm3 (150-375); Red Blood Count 2.96 M/mm3 (4.2-5.4); Red Cell Distribution Width 15.1 % (11.5-14.5); White Blood Count 9.5 K/mm3 (4.5-10.0)
[2021-02-13 05:58] LABS: Anion Gap 0 mmol/L (8-16); Blood Urea Nitrogen 23 mg/dL (7-17); Calcium 7.5 mg/dL (8.4-10.2); Carbon Dioxide 26 mmol/L (22-30); Chloride 115 mmol/L (98-107); Estimated CRCL calculation 18 ml/min; Estimated Glomerular Filt Rate 23; Glucose 109 mg/dL (65-105); Potassium 3.6 mmol/L (3.4-5.0); Sodium 141 mmol/L (137-145)
[2021-02-13 06:02] LABS: NT Pro B Type Natriuretic Pept 6430 PG/ML (5-100)
--- NOTE | 2021-02-13 07:00 | PM.PNGS ---
Progress Note: A&P Assessment and Plan (1) Acute on chronic kidney failure: Code(s): N17.9 - Acute kidney failure, unspecified; N18.9 - Chronic kidney disease, unspecified Status: Acute Assessment and Plan: will bolus with 1000 cc normal saline and increase IV fluids to 125 cc/hour. Monitor closely. Repeat labs again in a.m.. May need to have Zheng catheter placed. (2) SBO (small bowel obstruction): Code(s): K56.609 - Unspecified intestinal obstruction, unspecified as to partial versus complete obstruction Status: Acute Assessment and Plan: Awaiting return bowel function. Continue NG tube, NPO IV fluids. Up more today. Start dressing changes to abdominal incision. Healing well so far. High risk for complications with metastatic cancer and malnutrition. (3) Metastatic colon cancer in female: Onset Date: ~2017 Code(s): C18.9 - Malignant neoplasm of colon, unspecified Status: Chronic (4) Acute on chronic anemia: Code(s): D64.9 - Anemia, unspecified Status: Acute Assessment and Plan: Stable, monitoring Subjective Subjective Date/Time Seen: 02/13/21 07:00 Post Op day: 2 Patient reports: no new complaints ( Once nasogastric tube removed.), pain is less ( Little abdominal pain, actually feels better.), flatus, no bowel movement and afebrile Review of Systems Review of Systems: All systems reviewed & are unremarkable except as noted in HPI and below Constitutional: Constitutional: Denies chills, Reports difficulty sleeping, Denies fever(s), Denies headache(s), Reports lethargy and Reports weakness Cardiovascular: Cardiovascular: Denies chest pain and Denies dyspnea Respiratory: Respiratory: Denies cough and Denies dyspnea Gastrointestinal: Gastrointestinal: Reports as per HPI, Denies abdominal pain, Denies heartburn and Denies nausea Neurologic: Denies confusion and Denies headache(s) Exam Const: General: comfortable and no acute distress; No confusion Orientation/consciousness: patient oriented x3 and No confusion Resp: Effort & Inspection: normal respiratory effort Auscultation: clear to auscultation bilaterally GI: Inspection: non-distended and incision ( Incision looks good, no redness, no swelling. Healing well.) GI Palp: Yes Soft to palpation, Yes Tenderness to palpation present (GI) ( Mild appropriate tenderness), No Guarding due to palpation present (GI) and No Rebound tenderness present Auscultation: absent bowel sounds Neuro: General: patient oriented x3, no focal motor deficits and No confusion Extrem: General: no calf tenderness and no edema Psych: Affect: normal affect Insight: Good insight present (Psych) Judgement: Good judgement present (Psych) Objective Data Vital Signs Vital Signs: Vital Signs - 24 hr 02/12/21 08:00 02/12/21 09:34 02/12/21 14:00 Temperature 36.2 C L Pulse Rate 72 63 Respiratory Rate 16 Blood Pressure 140/77 Pulse Oximetry 94 100 02/12/21 20:22 02/12/21 22:00 02/12/21 22:44 Temperature 36.1 C L Pulse Rate 58 L 62 60 Respiratory Rate 16 Blood Pressure 146/70 H Pulse Oximetry 98 96 02/13/21 06:00 Temperature 36.6 C Pulse Rate 57 L Respiratory Rate 18 Blood Pressure 145/70 H Pulse Oximetry 100 Intake/Output Intake/Output: Intake & Output 02/10/21 02/11/21 02/12/21 02/13/21 23:59 23:59 23:59 23:59 Intake Total 1999 3350 1200 1000 Output Total 1900 195 0 Balance 100 3155 1200 1000 Meds/Results Medications: Active Medications Generic Name Dose Route Start Last Admin Trade Name Freq PRN Reason Stop Dose Admin Benzocaine 1 lozenge 02/09/21 11:39 02/09/21 14:31 Benzocaine/Menthol (*Bkc) 18 Ea Lozenge PO 1 lozenge PRN PRN Administration Sore Throat Famotidine 20 mg 02/11/21 21:00 02/12/21 20:21 Famotidine 20 Mg/2 Ml Vial IV PUSH 20 mg Q12HR BORIS Administration Heparin Sodium (Porcine) 500 units 02/07/21 10:01
[2021-02-13] MEDS: SODIUM CHLORIDE 0.9% IV 1,000 ML 999 ML IV CONT ×2 (08:58→19:27)
[2021-02-13] MEDS: KCL 20 MEQ/D5/0.9% SOD CHL 1,000 ML 125 ML IV CONT ×2 (08:58→17:17)
[2021-02-13] MEDS: FAMOTIDINE 20 MG/2 ML VIAL IV PUSH ×2 (09:11→20:36)
[2021-02-13] MEDS: METOPROLOL TARTRATE 12.5 MG TABLET FEED TUBE (10:26)
--- NOTE | 2021-02-13 11:18 | PCNFU ---
Nutrition Follow-Up Complete: Altered GI function as related to SBO as evidenced by NPO Goal: Meet estimated nutritional needs Limited progress towards goal. We will continue current goal. Pt current nutrition is NPO x 8 days. Last recorded weight is 57 kg, up from 55.6 kg. Bowel Motility:NO BM reported. Labs Reviewed:Glu 109,Cr 2.6,BUN 23,Hct 27.2,Hgb 8.5 Meds Noted:Pepcid,KCL,Heparin,Zofran, Morphine. Additional Notes: Patient seen today for nutrition follow up. Patient continues to have NGT to suction. POD 2. High nutritional risk. Recommendations: Clinimix E 5/15 at 40 ml/hr with 250 of 20% Lipid Emulsion,which will provide 1182 kcals and 48 gms protein. Monitoring: Will monitor every 3 days.
--- NOTE | 2021-02-13 12:39 | PM.IMPN ---
Progress Note: A&P Assessment and Plan (1) Complete small bowel obstruction: Code(s): K56.601 - Complete intestinal obstruction, unspecified as to cause Status: Acute Assessment and Plan: She reported colicky abdominal pain with progressive worsening for 3 days prior to presentation. Last bowel movement was 02/02/21. She has a hx of several small bowel obstructions. Likely secondary to adhesions from multiple abdominal surgeries in the past vs metastatic colon cancer. CT abd/pelvis demonstrated small bowel obstruction with clear transition point. She failed to improve with conservative therapy, therefore underwent adhesiolysis and enterectomy with anastomosis by Dr. Miller on 02/11/2021. She tolerated the procedure well and pain is well controlled at this time POD 2. Appreciate general surgery consultation Continue NG decompression Continue IV fluids while NPO PPN vs TPN being considered if she remains NPO. Appreciate RD and surgery input. Analgesics and antiemetics available as needed for pain (2) Metastatic colon cancer in female: Onset Date: ~2017 Code(s): C18.9 - Malignant neoplasm of colon, unspecified Status: Chronic Assessment and Plan: Diagnosed in 2015, s/p colectomy and adjuvant chemotherapy w/ FOLFOX at [facility]. S/P hyperthermic intraperitoneal chemotherapy and debulking surgery in 2018 in [place]. S/P bilateral nephrostomy tube placement August 2020 due to extrinsic compression of the ureters from large tumor burden consistent with recurrent metastatic cancer evident. She follows with Dr. Arango and receives palliative panitumumab every other week. Continue oncology recommendations and immunotherapy (3) Chronic kidney disease: Onset Date: ~03/2020 Qualifiers: Chronic kidney disease stage: stage 3 (moderate) Chronic kidney disease stage 3 subtype: stage 3b (GFR 30-44) Qualified Code(s): N18.32 - Chronic kidney disease, stage 3b Code(s): N18.9 - Chronic kidney disease, unspecified Status: Chronic Assessment and Plan: Baseline Cr fluctuates. On review of labs, Cr has been between 1.6-3.8. Nephrostomy tubes present. She receives retacrit every other week for her anemia secondary to CKD. Renal ultrasound on 02/09/2021 showed moderate right renal atrophy without evidence of hydronephrosis and nephrostomy tubes in expected position. She had a bump in creatinine today 2.6 compared to 1.9 yesterday. Received IV fluid bolus this morning and increased maintenance fluids to 125 ml/hr, per general surgery recommendations. Monitor volume status closely with strict I&O. Continue to monitor renal function closely. Renally dose medications and avoid nephrotoxins Dr. Teran manages her bilateral nephrotomy tubes. No issues at this time. (4) S/P right cataract extraction: Code(s): Z98.41 - Cataract extraction status, right eye Status: Acute Assessment and Plan: Extraction in early January 2021. Previously had right eye shield but has since been removed. Continue ophthalmology recommendations (5) Anemia of chronic disease: Code(s): D63.8 - Anemia in other chronic diseases classified elsewhere Status: Acute Assessment and Plan: Suspect multifactorial related to iron deficiency, malignancy, and chronic kidney disease. There is no evidence of acute bleeding. Vital signs are stable. Slight decline in H&H today. Repeat CBC in AM to ensure remaining stable. Monitor CBC daily and transfuse as needed to maintain Hb >7 (6) Congestive heart failure: Qualifiers: Heart failure type: diastolic Heart failure chronicity: chronic Qualified Code(s): I50.32 - Chronic diastolic (congestive) heart failure Code(s): I50.9 - Heart failure, unspecified Status: Chronic Assessment and Plan: Chronic, diastolic. Last echocardiogram 03/2020 shows EF 55-60%. No evidence of volume overload. B
--- NOTE | 2021-02-13 12:53 | PCOTNOTE ---
Attempted to see patient this pm, however patient sleeping upon entering and declined due to fatigue.
[2021-02-13] MEDS: fentaNYL CITRATE INJ (*CRX) 100 MCG/2 ML VIAL 25 MCG IV PUSH ×3 (13:02→21:26)
--- NOTE | 2021-02-13 14:36 | PC.NURSE ---
On 02/13/21, the student, [ Carmen Loepz], provided care and completed [facility] documentation on this patient. I have reviewed the student's documentation and agree with the findings.
--- NOTE | 2021-02-13 18:39 | PC.NURSE ---
Pt had minimal output (10 via NG, 50 Rt nephrostomy tube, 0 Lt nephrostomy tube) after 1L bolus NS and 1 L fluids at 125/hr. Called Dr. Miller who ordered an additional bolus of 1 L, as well as nephrology consult.
--- NOTE | 2021-02-13 23:32 | PC.NURSE ---
Patient had little to no output during the day. When repositioning her I felt that her bed was soaked. The ZINC MINER and I turned her and her nephrostomy dressings were saturated and the left one was twisted and kinked. It looked like the nephrostomy was draining from the site due to the kinking. I cleaned her up and and reinforced the site dressing with gauze and medipore tape, she had about 150ml out of the left drain after I unkinked it. She did not sound wet on auscultation but is clearly retaining fluid in her extremities and face, her arm band had to be removed because it was causing an imprint in her wrist so it is now taped to the end of her bed. I re-wrapped her legs and elevated them and will continue to monitor her lung sounds and output. She is currently satting at 100% according to the continuous pulse ox but the vitals machines had a hard time reading pulse o2 and HR accurately due to her poor circulation. -LEVON NOVA
[2021-02-14] MEDS: KCL 20 MEQ/D5/0.9% SOD CHL 1,000 ML 125 ML IV CONT (03:14)
[2021-02-14 04:12] LABS: Hematocrit 27.1 % (37.0-47.0); Hemoglobin 8.5 g/dL (12.0-15.0); Immature Platelet Fraction Pct 1.7 % (0.9-11.2); Mean Corpuscular HGB Conc 31.4 g/dl (32-36); Mean Corpuscular Hemoglobin 29.5 pg (26-34); Mean Corpuscular Volume 94.1 fl (80-100); Mean Platelet Volume 10.1 fl (7.4-10.4); Platelet Count Result 82 k/mm3 (150-375); Red Blood Count 2.88 M/mm3 (4.2-5.4); Red Cell Distribution Width 15.1 % (11.5-14.5)
[2021-02-14 04:22] LABS: Anion Gap 2 mmol/L (8-16); Blood Urea Nitrogen 23 mg/dL (7-17); Calcium 6.9 mg/dL (8.4-10.2); Carbon Dioxide 22 mmol/L (22-30); Chloride 118 mmol/L (98-107); Estimated CRCL calculation 17 ml/min; Estimated Glomerular Filt Rate 21; Glucose 111 mg/dL (65-105); Potassium 4.2 mmol/L (3.4-5.0); Sodium 142 mmol/L (137-145)
[2021-02-14 04:31] LABS: NT Pro B Type Natriuretic Pept 10800 PG/ML (5-100)
[2021-02-14] MEDS: CENTRAL LINE FLUSH 10 ML IV PUSH ×3 (05:55→21:36)
--- NOTE | 2021-02-14 05:57 | PC.NURSE ---
Left nephrostomy put out 275 after unkinking it, but I have not been able to collect the urine from it for urinalysis since due to no more drainage. Containers to collect it are in the patients room. -LEVON RN
[2021-02-14 06:00] VITALS: BP 126/72; PULSE 57; RESP 16; TEMP 36.6; O2SAT 97
[2021-02-14 10:13] VITALS: PULSE 54
[2021-02-14] MEDS: METOPROLOL TARTRATE 12.5 MG TABLET FEED TUBE ×2 (10:13→21:35)
[2021-02-14] MEDS: FAMOTIDINE 20 MG/2 ML VIAL IV PUSH ×2 (10:16→21:35)
[2021-02-14] MEDS: ONDANSETRON INJ 4 MG/2 ML VIAL IV PUSH (11:05)
--- NOTE | 2021-02-14 11:52 | PM.PNGS ---
Progress Note: A&P Assessment and Plan (1) Acute on chronic kidney failure: Code(s): N17.9 - Acute kidney failure, unspecified; N18.9 - Chronic kidney disease, unspecified Status: Acute Assessment and Plan: BUN/creatinine continue to increase. Low urine output. There was some concern with drainage/possible leakage around nephrostomy tubes this morning. Will consult Nephrology to assess, appreciate their help. Continue to monitor. Repeat labs in am. (2) SBO (small bowel obstruction): Code(s): K56.609 - Unspecified intestinal obstruction, unspecified as to partial versus complete obstruction Status: Acute Assessment and Plan: Await return bowel function. Continue NG tube, NPO IV fluids. Will initiate TPN for nutrition. Midline incision looks good, continue dressing changes daily. Increase activity, encourage IS. PT following. (3) Metastatic colon cancer in female: Onset Date: ~2017 Code(s): C18.9 - Malignant neoplasm of colon, unspecified Status: Chronic (4) Acute on chronic anemia: Code(s): D64.9 - Anemia, unspecified Status: Acute Assessment and Plan: Stable. Continue to monitor labs. Additional Plan I have discussed the plan of care with Dr. Miller. Subjective Subjective Date/Time Seen: 02/14/21 11:52 Post Op day: 3 (Adhesiolysis, enterectomy with anastomosis) Patient reports: no new complaints, pain is less, flatus and no bowel movement Interval history: Patient seen today with no specific complaints other than wanting the NG tube removed. Per the nurse, her nephrostomy tube dressings and the pad underneath her were soaked and saturated this morning. Increase in O2 need, chest x-ray ordered by Hospitalist. Review of Systems Review of Systems: All systems reviewed & are unremarkable except as noted in HPI and below Constitutional: Constitutional: Reports as per HPI, Reports no additional constitutional complaints, Denies chills and Denies fever(s) Cardiovascular: Cardiovascular: Reports no additional cardiovascular complaints, Denies chest pain and Denies dyspnea Respiratory: Respiratory: Reports no additional respiratory complaints, Denies cough and Denies dyspnea Gastrointestinal: Gastrointestinal: Reports as per HPI, Reports no additional gastrointestinal complaints and Denies nausea Neurologic: Reports system reviewed and no additional complaints, except as documented, Denies Abnormal speech present and Denies focal weakness Exam Const: General: comfortable, no acute distress, alert and awake Orientation/consciousness: patient oriented x3 Resp: Effort & Inspection: normal respiratory effort Auscultation: clear to auscultation bilaterally Cardio: Rate: regular rate Rhythm: regular rhythm GI: Inspection: non-distended and incision (Midline incision with mercedez intact, no redness, healing well) GI Palp: Yes Soft to palpation, Yes Tenderness to palpation present (GI) (incisional) and No Rebound tenderness present Auscultation: Hypoactive bowel sounds present : Other: Bilateral nephrostomy tubes with cloudy yellow output Skin: General skin exam: normal color Neuro: General: moves all extremities and no focal motor deficits Extrem: General: no calf tenderness and edema bilateral (bileral upper ext, mild 1+ edema) Psych: Mental Status: mental status grossly normal Insight: Good insight present (Psych) Judgement: Good judgement present (Psych) Objective Data Vital Signs Vital Signs: Vital Signs - 24 hr 02/13/21 14:00 02/13/21 14:10 02/13/21 20:00 Temperature 97.2 F L 98.6 F Pulse Rate 60 106 H Respiratory Rate 16 16 Blood Pressure 165/70 H 150/64 H Pulse Oximetry 100 100 100 02/13/21 20:48 02/13/21 21:18 02/13/21 22:00 Temperature 97.5 F L Pulse Rate 52 L 53 L Respiratory Rate 18 Blood Pressure 147/72 H Pulse Oximetry 99 100 02/14/21 06:00 02/14/21 10:13 Temperature 97.9 F Pulse Rate 57 L 54 L Respi
[2021-02-14] MEDS: fentaNYL CITRATE INJ (*CRX) 100 MCG/2 ML VIAL 25 MCG IV PUSH ×3 (12:28→23:36)
--- NOTE | 2021-02-14 13:21 | PM.IMPN ---
Progress Note: A&P Assessment and Plan (1) Complete small bowel obstruction: Code(s): K56.601 - Complete intestinal obstruction, unspecified as to cause Status: Acute Assessment and Plan: She reported colicky abdominal pain with progressive worsening for 3 days prior to presentation. Last bowel movement was 02/02/21. She has a hx of several small bowel obstructions. Likely secondary to adhesions from multiple abdominal surgeries in the past vs metastatic colon cancer. CT abd/pelvis demonstrated small bowel obstruction with clear transition point. She failed to improve with conservative therapy, therefore underwent adhesiolysis and enterectomy with anastomosis by Dr. Miller on 02/11/2021. She tolerated the procedure well and pain is controlled POD 3. Appreciate general surgery consultation Continue NG decompression TPN has been initiated. Analgesics and antiemetics available as needed for pain (2) Metastatic colon cancer in female: Onset Date: ~2017 Code(s): C18.9 - Malignant neoplasm of colon, unspecified Status: Chronic Assessment and Plan: Diagnosed in 2015, s/p colectomy and adjuvant chemotherapy w/ FOLFOX at [facility]. S/P hyperthermic intraperitoneal chemotherapy and debulking surgery in 2018 in [place]. S/P bilateral nephrostomy tube placement August 2020 due to extrinsic compression of the ureters from large tumor burden consistent with recurrent metastatic cancer evident. She follows with Dr. Arango and receives palliative panitumumab every other week. Continue oncology recommendations and immunotherapy (3) Acute on chronic kidney failure: Code(s): N17.9 - Acute kidney failure, unspecified; N18.9 - Chronic kidney disease, unspecified Status: Acute Assessment and Plan: Baseline Cr fluctuates. On review of labs, Cr has been between 1.6-3.8. Nephrostomy tubes present. Renal ultrasound on 02/09/2021 showed moderate right renal atrophy without evidence of hydronephrosis and nephrostomy tubes in expected position. Slight increase in creatinine today. Low urine output. No improvement in renal function despite IV fluid rehydration. Monitor volume status closely with strict I&O. Continue to monitor renal function closely. Renally dose medications and avoid nephrotoxins Consult placed to nephrology. Dr. Teran manages her bilateral nephrotomy tubes. I have placed consult to urology for further evaluation. (4) Anemia of chronic disease: Code(s): D63.8 - Anemia in other chronic diseases classified elsewhere Status: Acute Assessment and Plan: Suspect multifactorial related to iron deficiency, malignancy, and chronic kidney disease. There is no evidence of acute bleeding. Vital signs are stable. H&H remaining stable today. Monitor CBC daily and transfuse as needed to maintain Hb >7 (5) Congestive heart failure: Qualifiers: Heart failure type: diastolic Heart failure chronicity: chronic Qualified Code(s): I50.32 - Chronic diastolic (congestive) heart failure Code(s): I50.9 - Heart failure, unspecified Status: Chronic Assessment and Plan: Chronic, diastolic. Last echocardiogram 03/2020 shows EF 55-60%. BNP is elevated. She required supplemental oxygen this morning, although no episodes of hypoxia documented. Because of this, CXR obtained to ensure no evidence of fluid overload. Demonstrated small bilateral pleural effusions without evidence of pulmonary edema. Lungs are clear to auscultation. IV fluids placed on hold due to concerns for low output. Nephrology and urology consulted as above. Monitor volume status closely. Monitor intake and output. Weigh daily (6) Lymphedema: Code(s): I89.0 - Lymphedema, not elsewhere classified Status: Acute Assessment and Plan: Bilateral lower extremities. Appears to be a chronic finding. Venous doppler US negative for DVT. Supportive ca
[2021-02-14 14:00] VITALS: BP 147/70; PULSE 58; RESP 18; TEMP 36.6; O2SAT 100
--- NOTE | 2021-02-14 15:01 | PM.CNNEP ---
Assessment and Plan Assessment and plan (1) JOSE (acute kidney injury): Code(s): N17.9 - Acute kidney failure, unspecified Status: Acute Assessment and Plan: etiology? - volume depletion? - nephrostomy tube dysfunction? - random fluctuations in her erratic kidney function? consider flushing nephrostomy tubes versus early exchange but will defer to Urology on those potential interventions in the past, she has had creatinine fluctuations (without clear reason) that improved/stabilized on its own follow trend of labs and UOP follow-up on urine studies (2) Stage 3b chronic kidney disease: Code(s): N18.32 - Chronic kidney disease, stage 3b Status: Chronic Assessment and Plan: baseline creatinine seems to average out around 1.6 - 2.1mg/dl however, her creatinine has fluctuated to extremes including as high as 4.5mg/dl - furthermore, it seems to resolve back to baseline with no specific intervention due to 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) -- attempts at ureteral stenting failed so she ended up needing bilateral nephrostomy tubes (3) Small bowel obstruction: Onset Date: ~12/21/20 Code(s): K56.609 - Unspecified intestinal obstruction, unspecified as to partial versus complete obstruction Status: Acute Assessment and Plan: thought to be secondary to previous surgeries and adhesions s/p adhesiolysis and enterectomy with anastomosis General surgery following awaiting return of bowel function TPN for nutrition support as this time (4) Metastatic colon cancer in female: Onset Date: ~2017 Code(s): C18.9 - Malignant neoplasm of colon, unspecified Status: Chronic Assessment and Plan: follow with Hem/Onc as outpatient poor prognosis Will continue to follow. History of Present Illness Reason for Consult Consult date: 02/14/21 Reason for consult: acute renal failure (on chronic kidney disease) Chief Complaint Chief complaint: Small bowel obstruction History of Present Illness Narrative: The patient is an unfortunate 60-year-old female with a past medical history as outlined below who presented to the [facility] ER with complaints of abdominal pain and vomiting. The patient states that she has been having abdominal pain that has been progressively getting worse for the last 3 days prior to admission. She describes the pain as sharp and tends to come and go without any specific pattern and is localized to her entire abdomen. At its worst her pain was 15/10 but by the time of her arrival to the ER it was down to 9/10 and seem to improve further with administration of pain medications. The patient's concern was that this presentation is quite similar to her previous bouts of small-bowel obstruction that required hospitalization and further intervention (medical management and optimization of her bowel regimen). She reports at least 1 episode of vomiting prior to her presentation to the ER but denies any other symptoms with regard to fevers, chills, nausea, or diarrhea. She does admit that her appetite has been decreased but her appetite fluctuates given her known history of malignancy. Workup and evaluation emergency room demonstrated the patient to be hemodynamically stable and routine blood test demonstrated labs consistent with her history of chronic kidney disease as well as chronic anemia. Given her symptoms and complex medical history she underwent a CT scan of the abdomen and pelvis was demonstrated clear small bowel obstruction. General surgery was consulted and he recommended placement of an NG tube with continuous suction and admission to the hospital for further evaluation. Since her admission, conservative therapy to resolve her small bowel obstruction failed and she subsequently had to undergo surgery (ad
[2021-02-14] MEDS: AMINO ACIDS 5%/D15W/E-LYTES/CA 2,000 ML with MULTIVITAMINS-12 INJ VIAL 1 2.5 ML, MULTIV... 40 ML IV CONT (18:55)
[2021-02-14] MEDS: FAT EMULSIONS IV 20% 250 ML 20.83 ML IVPB (18:55)
[2021-02-14 20:31] LABS: Add Urine Microscopic? YES; Appearance Urine Turbid (Clear); Bacteria Urine Trace /hpf; Bilirubin Urine Negative (Negative); Blood Urine 2+ (Negative); Budding Yeast Urine Present /hpf; Color Urine Amber (Yellow); Glucose Urine UA Negative (Negative); Ketones Urine Negative (Negative); Leukocyte Esterase Ur 3+ LEU/UL (Negative); Nitrate Urine Negative (Negative); Protein Urine 2+ mg/dL (Negative); RBC Urine >75 /hpf (0-2); Specific Grav Ur 1.012 (1.001-1.035); Urobilinogen Urine Negative mg/dL (<2.0); WBC Urine >75 /hpf
[2021-02-14 21:03] LABS: Creatinine Urine 77.5 mg/dL
[2021-02-14 21:11] LABS: Sodium Urine Random 59 meq/L
[2021-02-14 22:00] VITALS: BP 154/97; PULSE 71; RESP 18; TEMP 36.3; O2SAT 100
[2021-02-15] VITALS (7 sets, daily range): BP systolic 148–154; BP diastolic 90–97; PULSE 62–109; RESP 12–18; TEMP 35.8–36.7; O2SAT 99–100
[2021-02-15 00:28] LABS: Glucose Point of Care 115 (65-105)
[2021-02-15] MEDS: fentaNYL CITRATE INJ (*CRX) 100 MCG/2 ML VIAL 25 MCG IV PUSH ×4 (06:15→21:38)
[2021-02-15] MEDS: CENTRAL LINE FLUSH 10 ML IV PUSH ×3 (06:20→22:00)
[2021-02-15 06:36] LABS: Hematocrit 26.4 % (37.0-47.0); Hemoglobin 8.3 g/dL (12.0-15.0); Mean Corpuscular HGB Conc 31.4 g/dl (32-36); Mean Corpuscular Hemoglobin 29.3 pg (26-34); Mean Corpuscular Volume 93.3 fl (80-100); Mean Platelet Volume 10.2 fl (7.4-10.4); Platelet Count Result 83 k/mm3 (150-375); Red Blood Count 2.83 M/mm3 (4.2-5.4); Red Cell Distribution Width 14.9 % (11.5-14.5); White Blood Count 11.9 K/mm3 (4.5-10.0)
[2021-02-15 06:47] LABS: Anion Gap 2 mmol/L (8-16); Blood Urea Nitrogen 27 mg/dL (7-17); Calcium 7.3 mg/dL (8.4-10.2); Carbon Dioxide 22 mmol/L (22-30); Chloride 118 mmol/L (98-107); Estimated CRCL calculation 18 ml/min; Estimated Glomerular Filt Rate 20; Glucose 119 mg/dL (65-105); Phosphorus 3.2 mg/dL (2.5-4.5); Potassium 3.8 mmol/L (3.4-5.0); Sodium 142 mmol/L (137-145)
[2021-02-15 06:53] LABS: Glucose Point of Care 112 (65-105)
--- NOTE | 2021-02-15 06:58 | WPDUROPN2 ---
Progress Note: A&P Assessment and Plan (1) Metastatic colon cancer in female: Onset Date: ~2017 Code(s): C18.9 - Malignant neoplasm of colon, unspecified Status: Chronic (2) Bilateral hydronephrosis: Code(s): N13.30 - Unspecified hydronephrosis Status: Acute Assessment and Plan: Nephrostomy tubes continue to drain well. No intervention planned, currently, from our standpoint. Subjective Subjective Date/Time Seen: 02/15/21 06:58 Bilateral ureteral obstruction due to recal ca. Bilat. perc. neph. tubes continue to drain Review of Systems Cardiovascular: Cardiovascular: Denies chest pain, Denies lightheadedness, Denies palpitations and Denies dyspnea Respiratory: Respiratory: Denies dyspnea Gastrointestinal: Gastrointestinal: Denies diarrhea, Denies nausea and Denies vomiting Genitourinary: Genitourinary: Denies hematuria and Denies dysuria Endocrine: Endocrine: Denies palpitations Exam Const: General: no acute distress Resp: Effort & Inspection: normal respiratory effort GI: Inspection: non-distended GI Palp: No abdominal tenderness and No Guarding due to palpation present (GI) Auscultation: normal bowel sounds Urinary Catheter: Urinary Catheter: patent and draining and urine clear Objective Data Vital Signs Vital Signs: Vital Signs - 24 hr 02/14/21 10:13 02/14/21 14:00 02/14/21 22:00 Temperature 97.8 F 97.4 F L Pulse Rate 54 L 58 L 71 Respiratory Rate 18 18 Blood Pressure 147/70 H 154/97 H Pulse Oximetry 100 100 02/15/21 06:00 Temperature 98.0 F Pulse Rate 66 Respiratory Rate 18 Blood Pressure 154/97 H Pulse Oximetry 100 Intake/Output Intake/Output: Intake & Output 02/12/21 02/13/21 02/14/21 02/15/21 23:59 23:59 23:59 23:59 Intake Total 1200 2083 1100 Output Total 150 60 525 200 Balance 1050 2023 575 -200 Meds/Results Medications: Active Medications Generic Name Dose Route Start Last Admin Trade Name Freq PRN Reason Stop Dose Admin Benzocaine 1 lozenge 02/09/21 11:39 02/09/21 14:31 Benzocaine/Menthol (*Bkc) 18 Ea Lozenge PO 1 lozenge PRN PRN Administration Sore Throat Famotidine 20 mg 02/11/21 21:00 02/14/21 21:35 Famotidine 20 Mg/2 Ml Vial IV PUSH 20 mg Q12HR BORIS Administration Fentanyl Citrate 25 mcg 02/13/21 12:32 02/15/21 06:15 Fentanyl Citrate Inj (*Crx) 100 Mcg/2 Ml Vial IV PUSH 25 mcg Q4H PRN Administration Pain Rated 7-10 Heparin Sodium (Porcine) 500 units 02/07/21 10:01 Heparin Sod Flush 500 Units/5 Ml Syringe IV PUSH PRN PRN see comments below Heparin Sodium (Porcine) 5,000 units 02/07/21 21:00 02/12/21 20:21 Heparin Sodium 5,000 Units/Ml Vial SUB-Q 5,000 units Q12HR BORIS Administration Hydralazine HCl 10 mg 02/08/21 22:11 02/08/21 22:26 Hydralazine Hcl 20 Mg/Ml Vial IV PUSH 10 mg Q4H PRN Administration Blood Pressure - High Potassium Chloride/Dextrose/Sod Cl 1,000 mls @ 125 mls/hr 02/13/21 07:00 02/14/21 18:58 Kcl 20 Meq/D5/0.9% Sod Chl IV CONT Not Given .Q8H BORIS Dextrose 1,000 mls @ 50 mls/hr 02/14/21 11:40 Dextrose 10% IV CONT .Q20H PRN if PN is interrupted Multivitamins 2.5 ml/ 2,005 mls @ 40 mls/hr 02/14/21 14:00 02/14/21 18:55 Multivitamins 2.5 ml/ Amino IV CONT 40 mls/hr Acids/Electrolytes/Dextrose .Q24H BORIS Administration Protocol Fat Emulsion Intravenous 250 mls @ 20.833 mls/hr 02/14/21 14:00 02/14/21 18:55 Lipids 20% IVPB 20.83 mls/hr Q24H BORIS Administration Metoprolol Tartrate 12.5 mg 02/09/21 09:00 02/14/21 21:35 Metoprolol Tartrate 12.5 Mg Tablet FEED TUBE 12.5 mg Q12HR BORIS Administration Miconazole Nitrate 1 applic 02/07/21 09:00 02/14/21 21:35 Miconazole 2% Antifungal Ointment 56 Gm TOPICAL 1 applic Q12HR BORIS Administration Naloxone HCl 0.1 mg 02/11/21 20:24 Naloxone Hcl 0.4 Mg/Ml Vial IV PUSH Q2M PRN Opiate Reversal
[2021-02-15 07:09] LABS: Transferrin < 80 mg/dL (206-381)
--- NOTE | 2021-02-15 07:15 | PM.PNGS ---
Progress Note: A&P Assessment and Plan (1) Acute on chronic kidney failure: Code(s): N17.9 - Acute kidney failure, unspecified; N18.9 - Chronic kidney disease, unspecified Status: Acute Assessment and Plan: remains oliguric. Will give normal saline bolus. Nephrology consulted. (2) SBO (small bowel obstruction): Code(s): K56.609 - Unspecified intestinal obstruction, unspecified as to partial versus complete obstruction Status: Acute Assessment and Plan: Still awaiting return of bowel function. Some bowel sounds heard today but hypoactive. No abdominal distention. Wound appears satisfactory. (3) Metastatic colon cancer in female: Onset Date: ~2017 Code(s): C18.9 - Malignant neoplasm of colon, unspecified Status: Chronic Assessment and Plan: Stable (4) Protein-calorie malnutrition, severe: Code(s): E43 - Unspecified severe protein-calorie malnutrition Status: Chronic Assessment and Plan: continue TPN despite metastatic cancer. Subjective Subjective Date/Time Seen: 02/15/21 07:15 Post Op day: 4 Patient reports: no new complaints, flatus, no bowel movement and afebrile Review of Systems Review of Systems: All systems reviewed & are unremarkable except as noted in HPI and below Constitutional: Constitutional: Denies chills, Reports fatigue, Denies fever(s), Denies headache(s), Reports lethargy and Reports weakness Cardiovascular: Cardiovascular: Denies chest pain and Denies dyspnea Respiratory: Respiratory: Denies cough and Denies dyspnea Gastrointestinal: Gastrointestinal: Reports as per HPI, Denies abdominal pain, Denies GI cramping and Denies nausea Neurologic: Denies confusion and Denies headache(s) Exam Const: General: cooperative, comfortable, no acute distress, awake and tired appearing; No confusion Nutritional Appearance: malnourished Orientation/consciousness: patient oriented x3 and No confusion Limitations: physical limitations GI: Inspection: non-distended and incision (Serosanguineous drainage from wound, no redness or swelling) GI Palp: Yes Soft to palpation, Yes Tenderness to palpation present (GI) ( mild tenderness), No Guarding due to palpation present (GI) and No Rebound tenderness present Auscultation: Hypoactive bowel sounds present Neuro: General: patient oriented x3, no focal motor deficits and No confusion Extrem: General: no calf tenderness and edema Psych: Affect: normal affect Insight: Good insight present (Psych) Judgement: Good judgement present (Psych) Objective Data Vital Signs Vital Signs: Vital Signs - 24 hr 02/14/21 10:13 02/14/21 14:00 02/14/21 22:00 Temperature 36.6 C 36.3 C L Pulse Rate 54 L 58 L 71 Respiratory Rate 18 18 Blood Pressure 147/70 H 154/97 H Pulse Oximetry 100 100 02/15/21 06:00 Temperature 36.7 C Pulse Rate 66 Respiratory Rate 18 Blood Pressure 154/97 H Pulse Oximetry 100 Intake/Output Intake/Output: Intake & Output 02/12/21 02/13/21 02/14/21 02/15/21 23:59 23:59 23:59 23:59 Intake Total 1200 2083 1100 Output Total 150 60 525 200 Balance 1050 2023 575 -200 Meds/Results Medications: Active Medications Generic Name Dose Route Start Last Admin Trade Name Freq PRN Reason Stop Dose Admin Benzocaine 1 lozenge 02/09/21 11:39 02/09/21 14:31 Benzocaine/Menthol (*Bkc) 18 Ea Lozenge PO 1 lozenge PRN PRN Administration Sore Throat Famotidine 20 mg 02/11/21 21:00 02/14/21 21:35 Famotidine 20 Mg/2 Ml Vial IV PUSH 20 mg Q12HR BORIS Administration Fentanyl Citrate 25 mcg 02/13/21 12:32 02/15/21 06:15 Fentanyl Citrate Inj (*Crx) 100 Mcg/2 Ml Vial IV PUSH 25 mcg Q4H PRN Administration Pain Rated 7-10 Heparin Sodium (Porcine) 500 units 02/07/21 10:01 Heparin Sod Flush 500 Units/5 Ml Syringe IV PUSH PRN PRN see comments below Heparin Sodium (Porcine) 5,000 units 02/07/21 21:00 02/12/21
[2021-02-15] MEDS: SODIUM CHLORIDE 0.9% IV 1,000 ML 999 ML IV CONT (08:23)
[2021-02-15] MEDS: FAMOTIDINE 20 MG/2 ML VIAL IV PUSH ×2 (08:26→21:22)
[2021-02-15] MEDS: METOPROLOL TARTRATE 12.5 MG TABLET FEED TUBE ×2 (08:29→21:57)
[2021-02-15 11:08] LABS: Triglycerides 109 mg/dL (<150)
--- NOTE | 2021-02-15 11:11 | PCNFU ---
Nutrition Follow-Up Complete: Altered GI function as related to SBO as evidenced by NPO Goal: Meet estimated nutritional needs Patient is progressing towards goal. We will continue current goal. Pt current nutrition is NPO. Last recorded weight is 64.4 kg up from 56.8 kg on admit. Bowel Motility:No BM reported. Labs Reviewed:Glu 112,BUN 27,GFR 20,Cr 2.9 Meds Noted:Clinimix E 03/16, 20% Lipid Emulsion,Pepcid,Lopressor,Heparin Additional Notes: Nutrition follow up. Patient remains NPO. TPN was started on 02/14, providing 1182 kcals and 48 gms protein. Recommend increasing TPN to 60 ml/hr providing 1522 kcals/72 gms protein, providing 73% of patients caloric needs. Will continue to monitor fluids due to CHF. Will monitor every Thursday and Thursday.
[2021-02-15 12:14] LABS: Glucose Point of Care 98 (65-105)
--- NOTE | 2021-02-15 13:29 | PM.PNNEP ---
Progress Note: A&P Assessment and Plan (1) JOSE (acute kidney injury): Code(s): N17.9 - Acute kidney failure, unspecified Status: Acute Assessment and Plan: etiology? - volume depletion - seems less likely given 4L+ with IVFs - nephrostomy tube dysfunction - appear patent and draining - random fluctuations in her erratic kidney function? consider flushing nephrostomy tubes versus early exchange but will defer to Urology on those potential interventions follow trend of labs and UOP follow-up on urine studies (2) Stage 3b chronic kidney disease: Code(s): N18.32 - Chronic kidney disease, stage 3b Status: Chronic Assessment and Plan: baseline creatinine seems to average out around 1.6 - 2.1mg/dl however, her creatinine has fluctuated to extremes including as high as 4.5mg/dl - furthermore, it seems to resolve back to baseline with no specific intervention sometimes due to 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) -- attempts at ureteral stenting failed so she ended up needing bilateral nephrostomy tubes (3) Small bowel obstruction: Onset Date: ~12/21/20 Code(s): K56.609 - Unspecified intestinal obstruction, unspecified as to partial versus complete obstruction Status: Acute Assessment and Plan: thought to be secondary to previous surgeries and adhesions s/p adhesiolysis and enterectomy with anastomosis (on 02/11/21) General surgery following awaiting return of bowel function TPN for nutrition support as this time (4) Metastatic colon cancer in female: Onset Date: ~2017 Code(s): C18.9 - Malignant neoplasm of colon, unspecified Status: Chronic Assessment and Plan: follow with Hem/Onc as outpatient poor prognosis Will continue to follow. Subjective Date/time seen: 02/15/21 13:29 She states she feel reasonably well at the time of my visit; nephrostomy tubes continue to drain although output seems diminished; NG tube remains in place; no bowel movement as of yet; no events/issues overnight or earlier this AM. Exam Narrative: Exam Narrative: General: chronically ill appearing AA female in NAD; NG tube in place Heart: normal S1 and S2; no rub Lungs: clear to auscultation Abdomen: soft, nontender, nondistended, positive bowel sounds Extremities: no cyanosis or clubbing; 2+ edema Skin: warm and dry Objective Data Vital Signs Vital Signs: Vital Signs Temp Pulse Resp BP Pulse Ox 02/15/21 08:29 62 02/15/21 06:00 36.7 C 66 18 154/97 H 100 02/14/21 22:00 36.3 C L 71 18 154/97 H 100 Intake/Output Intake/Output: Intake & Output 02/12/21 02/13/21 02/14/21 02/15/21 23:59 23:59 23:59 23:59 Intake Total 1200 2083 1100 Output Total 150 60 525 200 Balance 1050 2023 575 -200 Meds/Results Medications: Active Medications Generic Name Dose Route Start Last Admin Trade Name Freq PRN Reason Stop Dose Admin Benzocaine 1 lozenge 02/09/21 11:39 02/09/21 14:31 Benzocaine/Menthol (*Bkc) 18 Ea Lozenge PO 1 lozenge PRN PRN Administration Sore Throat Famotidine 20 mg 02/11/21 21:00 02/15/21 08:26 Famotidine 20 Mg/2 Ml Vial IV PUSH 20 mg Q12HR BORIS Administration Fentanyl Citrate 25 mcg 02/13/21 12:32 02/15/21 12:47 Fentanyl Citrate Inj (*Crx) 100 Mcg/2 Ml Vial IV PUSH 25 mcg Q4H PRN Administration Pain Rated 7-10 Heparin Sodium (Porcine) 500 units 02/07/21 10:01 Heparin Sod Flush 500 Units/5 Ml Syringe IV PUSH PRN PRN see comments below Heparin Sodium (Porcine) 5,000 units 02/07/21 21:00 02/12/21 20:21 Heparin Sodium 5,000 Units/Ml Vial SUB-Q 5,000 units Q12HR BORIS Administration Hydralazine HCl 10 mg 02/08/21 22:11 02/08/21 22:26 Hydralazine Hcl 20 Mg/Ml Vial IV PUSH 10 mg Q4H PRN Administration Blood Pressure - High
--- NOTE | 2021-02-15 13:30 | PCPTNOTE ---
Attempted to see patient for PT treatment at 13:27, however patient unavailable. Patient's RNs present in room with patient. Will attempt later as appropriate. Brie Andrea, [employer] HE[employer] OFFICER
--- NOTE | 2021-02-15 13:54 | PM.IMPN ---
Progress Note: A&P Assessment and Plan (1) Complete small bowel obstruction: Code(s): K56.601 - Complete intestinal obstruction, unspecified as to cause Status: Acute Assessment and Plan: She reported colicky abdominal pain with progressive worsening for 3 days prior to presentation. Last bowel movement was 02/02/21. She has a hx of several small bowel obstructions. Likely secondary to adhesions from multiple abdominal surgeries in the past vs metastatic colon cancer. CT abd/pelvis demonstrated small bowel obstruction with clear transition point. She failed to improve with conservative therapy, therefore underwent adhesiolysis and enterectomy with anastomosis by Dr. Miller on 02/11/2021. She tolerated the procedure well and pain is controlled POD 4. Appreciate general surgery consultation Continue NG decompression Continue TPN Analgesics and antiemetics available as needed for pain (2) Metastatic colon cancer in female: Onset Date: ~2017 Code(s): C18.9 - Malignant neoplasm of colon, unspecified Status: Chronic Assessment and Plan: Diagnosed in 2015, s/p colectomy and adjuvant chemotherapy w/ FOLFOX at [facility]. S/P hyperthermic intraperitoneal chemotherapy and debulking surgery in 2017 in [place]. S/P bilateral nephrostomy tube placement August 2020 due to extrinsic compression of the ureters from large tumor burden consistent with recurrent metastatic cancer evident. She follows with Dr. Arango and receives palliative panitumumab every other week. Continue oncology recommendations and immunotherapy (3) Acute on chronic kidney failure: Code(s): N17.9 - Acute kidney failure, unspecified; N18.9 - Chronic kidney disease, unspecified Status: Acute Assessment and Plan: Baseline Cr fluctuates. On review of labs, Cr has been between 1.6-3.8. Nephrostomy tubes present. Renal ultrasound on 02/09/2021 showed moderate right renal atrophy without evidence of hydronephrosis and nephrostomy tubes in expected position. Creatinine has steadily increased. No improvement in renal function despite IV fluid rehydration. She had decreased urine output but this appears to be slowly improving. Monitor volume status closely with strict I&O. Continue to monitor renal function closely. Renally dose medications and avoid nephrotoxins Consult placed to nephrology. Input is appreciated. Dr. Teran consulted for evaluation of nephrostomy tubes which are patent and draining (4) Anemia of chronic disease: Code(s): D63.8 - Anemia in other chronic diseases classified elsewhere Status: Acute Assessment and Plan: Suspect multifactorial related to iron deficiency, malignancy, and chronic kidney disease. There is no evidence of acute bleeding. Vital signs are stable. H&H remaining stable today. Monitor CBC daily and transfuse as needed to maintain Hb >7 (5) Congestive heart failure: Qualifiers: Heart failure type: diastolic Heart failure chronicity: chronic Qualified Code(s): I50.32 - Chronic diastolic (congestive) heart failure Code(s): I50.9 - Heart failure, unspecified Status: Chronic Assessment and Plan: Chronic, diastolic. Last echocardiogram 03/2020 shows EF 55-60%. BNP is elevated. She required supplemental oxygen this morning, although no episodes of hypoxia documented. Because of this, CXR obtained to ensure no evidence of fluid overload. Demonstrated small bilateral pleural effusions without evidence of pulmonary edema. Lungs are clear to auscultation. IV fluids placed on hold as she has a 4 L positive fluid balance. Monitor volume status closely. Monitor intake and output. Weigh daily (6) Lymphedema: Code(s): I89.0 - Lymphedema, not elsewhere classified Status: Acute Assessment and Plan: Bilateral lower extremities. Appears to be a chronic finding. Venous doppler US negative for DVT. Suppo
--- NOTE | 2021-02-15 14:55 | PCPTNOTE ---
Patient refused treatment this session due to fatigue. Attempted to see patient at 14:54, however patient refused therapy due to being too tired. Patient states that she needs to rest now and will do therapy tomorrow. Brie Andrea, SALES REPRESENTATIVE [employer]ING [employer]
[2021-02-15] MEDS: AMINO ACIDS 5%/D15W/E-LYTES/CA 2,000 ML with MULTIVITAMINS-12 INJ VIAL 1 2.5 ML, MULTIV... 40 ML IV CONT (17:18)
[2021-02-15] MEDS: FAT EMULSIONS IV 20% 250 ML 20.83 ML IVPB (17:19)
[2021-02-15 18:56] LABS: Glucose Point of Care 98 (65-105)
[2021-02-16 00:04] LABS: Glucose Point of Care 104 (65-105)
[2021-02-16] MEDS: fentaNYL CITRATE INJ (*CRX) 100 MCG/2 ML VIAL 25 MCG IV PUSH ×5 (02:34→19:22)
[2021-02-16 06:00] VITALS: BP 135/77; PULSE 58; RESP 18; TEMP 36; O2SAT 100
[2021-02-16] MEDS: CENTRAL LINE FLUSH 10 ML IV PUSH ×3 (06:13→20:22)
[2021-02-16 06:18] LABS: Hematocrit 23.6 % (37.0-47.0); Hemoglobin 7.5 g/dL (12.0-15.0); Immature Platelet Fraction Pct 1.8 % (0.9-11.2); Mean Corpuscular HGB Conc 31.8 g/dl (32-36); Mean Corpuscular Hemoglobin 29.4 pg (26-34); Mean Corpuscular Volume 92.5 fl (80-100); Mean Platelet Volume 10.4 fl (7.4-10.4); Platelet Count Result 75 k/mm3 (150-375); Red Blood Count 2.55 M/mm3 (4.2-5.4); Red Cell Distribution Width 14.9 % (11.5-14.5); White Blood Count 8.8 K/mm3 (4.5-10.0)
[2021-02-16 06:23] LABS: Anion Gap 0 mmol/L (8-16); Blood Urea Nitrogen 28 mg/dL (7-17); Calcium 6.9 mg/dL (8.4-10.2); Carbon Dioxide 22 mmol/L (22-30); Chloride 118 mmol/L (98-107); Estimated CRCL calculation 20 ml/min; Estimated Glomerular Filt Rate 23; Glucose 125 mg/dL (65-105); Potassium 3.6 mmol/L (3.4-5.0); Sodium 140 mmol/L (137-145)
--- NOTE | 2021-02-16 07:25 | PM.PNGS ---
Progress Note: A&P Assessment and Plan (1) Acute on chronic kidney failure: Code(s): N17.9 - Acute kidney failure, unspecified; N18.9 - Chronic kidney disease, unspecified Status: Acute Assessment and Plan: remains somewhat oliguric. Nephrology consulted. (2) SBO (small bowel obstruction): Code(s): K56.609 - Unspecified intestinal obstruction, unspecified as to partial versus complete obstruction Status: Acute Assessment and Plan: Still awaiting return of bowel function. Some better bowel sounds heard today . No abdominal distention. Wound dressing dry and intact (3) Metastatic colon cancer in female: Onset Date: ~2017 Code(s): C18.9 - Malignant neoplasm of colon, unspecified Status: Chronic Assessment and Plan: Stable (4) Protein-calorie malnutrition, severe: Code(s): E43 - Unspecified severe protein-calorie malnutrition Status: Chronic Assessment and Plan: continue TPN despite metastatic cancer. Additional Plan Will try clamping routine on the NG and see if we can get out later today. Subjective Subjective Date/Time Seen: 02/16/21 07:25 Post Op day: 5 (Patient states she has been passing lots of gas but no bowel movement yet.) Patient reports: feels better Interval history: Patient is sitting up in bed when I arrived. She states she is feeling okay. Not a lot of pain. Passing lots of flatus but not any bowel movement yet. Nurses report no bowel movement yet. I&O shows not much out her NG tube the last 2 days. Review of Systems Review of Systems: All systems reviewed & are unremarkable except as noted in HPI and below Constitutional: Constitutional: Reports as per HPI, Reports no additional constitutional complaints, Denies body ache(s), Denies chills, Reports difficulty sleeping, Reports fatigue, Denies fever(s), Denies headache(s), Reports lethargy and Reports weakness Eyes: Eyes: Reports no additional eye complaints, Denies eye pain and Reports other (recent cataract extraction on right eye) ENT: Reports system reviewed and no additional complaints, except as documented, Reports Normal hearing present, Denies dizziness and Denies headache(s) Cardiovascular: Cardiovascular: Reports no additional cardiovascular complaints, Denies chest pain and Denies dyspnea Respiratory: Respiratory: Reports no additional respiratory complaints, Denies cough and Denies dyspnea Gastrointestinal: Gastrointestinal: Reports as per HPI, Reports no additional gastrointestinal complaints, Denies abdominal pain, Denies melena, Denies hematochezia, Denies GI cramping, Denies heartburn, Denies diarrhea, Denies nausea and Denies vomiting Comments: Positive flatus with no nausea and no bowel movement. Genitourinary: Genitourinary: Denies hematuria, Denies dysuria and Reports other (decreased nephrostomy tube output last few) Musculoskeletal: Musculoskeletal: Denies abnormal gait, Denies deformity, Denies joint swelling, Denies numbness and Denies tingling Integumentary/Breasts: Skin/Breast: Denies wounds and Denies jaundice Neurologic: Reports system reviewed and no additional complaints, except as documented, Reports Normal hearing present, Denies Abnormal speech present, Denies abnormal gait, Denies confusion, Denies dizziness, Denies headache(s), Denies focal weakness, Denies numbness, Denies tingling and Reports weakness Psychiatric: Psychiatric: Denies confusion Endocrine: Endocrine: Reports fatigue Exam Const: General: cooperative, comfortable, no acute distress, alert, awake and tired appearing; No confusion Nutritional Appearance: average body habitus and malnourished Orientation/consciousness: patient oriented x3 and No confusion Limitations: physical limitations HENMT: Head: normocephalic and atraumatic Ears: hearing grossly normal bilaterally and external ears normal Mouth: Yes moist mucous membranes Eyes: General: appearance normal,
[2021-02-16 09:05] LABS: Alanine Aminotransferase 10 U/L (4-35); Albumin Level 1.4 g/dL (3.5-5.1); Alkaline Phosphatase 55 U/L (38-126); Aspartate Amino Transferase 14 U/L (14-36); Bilirubin,Total < 0.1 mg/dL (0.2-1.3)
--- NOTE | 2021-02-16 09:17 | PM.IMPN ---
Progress Note: A&P Assessment and Plan (1) Complete small bowel obstruction: Code(s): K56.601 - Complete intestinal obstruction, unspecified as to cause Status: Acute Assessment and Plan: She reported colicky abdominal pain with progressive worsening for 3 days prior to presentation. Last bowel movement was 02/02/21. She has a hx of several small bowel obstructions. Likely secondary to adhesions from multiple abdominal surgeries in the past vs metastatic colon cancer. CT abd/pelvis demonstrated small bowel obstruction with clear transition point. She failed to improve with conservative therapy, therefore underwent adhesiolysis and enterectomy with anastomosis by Dr. Miller on 02/11/2021. She tolerated the procedure well and pain is controlled POD 5. Appreciate general surgery consultation NG tube has been clamped and considering removal today per surgery Continue TPN Analgesics and antiemetics available as needed for pain (2) Metastatic colon cancer in female: Onset Date: ~2017 Code(s): C18.9 - Malignant neoplasm of colon, unspecified Status: Chronic Assessment and Plan: Diagnosed in 2015, s/p colectomy and adjuvant chemotherapy w/ FOLFOX at [facility]. S/P hyperthermic intraperitoneal chemotherapy and debulking surgery in 2017 in [place]. S/P bilateral nephrostomy tube placement August 2020 due to extrinsic compression of the ureters from large tumor burden consistent with recurrent metastatic cancer evident. She follows with Dr. Arango and receives palliative panitumumab every other week. Continue oncology recommendations and immunotherapy (3) Acute on chronic kidney failure: Code(s): N17.9 - Acute kidney failure, unspecified; N18.9 - Chronic kidney disease, unspecified Status: Acute Assessment and Plan: Baseline Cr fluctuates. On review of labs, Cr has been between 1.6-3.8. Nephrostomy tubes present. Renal ultrasound on 02/09/2021 showed moderate right renal atrophy without evidence of hydronephrosis and nephrostomy tubes in expected position. She had decreased urine output but this appears to be slowly improving. Creatinine increased up to 2.9. Slight improvement today at 2.6. Monitor volume status closely with strict I&O. Continue to monitor renal function closely. Renally dose medications and avoid nephrotoxins Consult placed to nephrology. Input is appreciated. I discussed case with Dr. Arrieta today. Dr. Teran consulted for evaluation of nephrostomy tubes which are patent and draining (4) Anemia of chronic disease: Code(s): D63.8 - Anemia in other chronic diseases classified elsewhere Status: Acute Assessment and Plan: Suspect multifactorial related to iron deficiency, malignancy, and chronic kidney disease. There is no evidence of acute bleeding. Vital signs are stable. Hemoglobin was 10.9 at presentation. H&H with slow decline and today low at 7.5. Monitor CBC daily and transfuse as needed to maintain Hb >7 Repeat H&H this afternoon to ensure remaining stable. (5) Congestive heart failure: Qualifiers: Heart failure type: diastolic Heart failure chronicity: chronic Qualified Code(s): I50.32 - Chronic diastolic (congestive) heart failure Code(s): I50.9 - Heart failure, unspecified Status: Chronic Assessment and Plan: Chronic, diastolic. Last echocardiogram 03/2020 shows EF 55-60%. BNP is elevated. CXR obtained to ensure no evidence of fluid overload. which showed small bilateral pleural effusions without evidence of pulmonary edema. Lungs are clear to auscultation. She does have a 5 L positive fluid balance, however she is asymptomatic. Will hold off on diuresis at this time. Would consider IV albumin followed by diuresis if she developed symptoms of fluid overload. Monitor intake and output. Weigh daily (6) Lymphedema: Code(s): I89.0 - Lymphedema, not elsewhere classified
[2021-02-16] MEDS: FAMOTIDINE 20 MG/2 ML VIAL IV PUSH ×2 (09:55→20:22)
[2021-02-16 09:56] VITALS: PULSE 70
[2021-02-16] MEDS: METOPROLOL TARTRATE 12.5 MG TABLET FEED TUBE ×2 (09:56→20:22)
[2021-02-16 10:29] VITALS: O2SAT 100
--- NOTE | 2021-02-16 11:41 | PM.PNNEP ---
Progress Note: A&P Assessment and Plan (1) JOSE (acute kidney injury): Code(s): N17.9 - Acute kidney failure, unspecified Status: Acute Assessment and Plan: etiology? - volume depletion - seems less likely given 4L+ with IVFs - nephrostomy tube dysfunction - appear patent and draining - infection? -- urine from nephrostomy tubes with Enterococcus - random fluctuations in her erratic kidney function? consider flushing nephrostomy tubes versus early exchange but will defer to Urology on those potential interventions follow trend of labs and UOP (2) Stage 3b chronic kidney disease: Code(s): N18.32 - Chronic kidney disease, stage 3b Status: Chronic Assessment and Plan: baseline creatinine seems to average out around 1.6 - 2.1mg/dl however, her creatinine has fluctuated to extremes including as high as 4.5mg/dl - furthermore, it seems to resolve back to baseline with no specific intervention sometimes due to 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) -- attempts at ureteral stenting failed so she ended up needing bilateral nephrostomy tubes (3) Small bowel obstruction: Onset Date: ~12/21/20 Code(s): K56.609 - Unspecified intestinal obstruction, unspecified as to partial versus complete obstruction Status: Acute Assessment and Plan: thought to be secondary to previous surgeries and adhesions s/p adhesiolysis and enterectomy with anastomosis (on 02/11/21) General surgery following awaiting return of bowel function TPN for nutrition support as this time (4) Metastatic colon cancer in female: Onset Date: ~2017 Code(s): C18.9 - Malignant neoplasm of colon, unspecified Status: Chronic Assessment and Plan: follow with Hem/Onc as outpatient poor prognosis Will continue to follow. Subjective Date/time seen: 02/16/21 11:41 Appears to be doing reasonably well today -- hoping for NG tube removal today after seeing Surgery earlier today; passing flatus but no bowel movement as of yet; no other acute complaints or issues to report at this time; no events overnight or earlier this AM. Exam Narrative: Exam Narrative: General: chronically ill appearing AA female in NAD; NG tube in place Heart: normal S1 and S2; no rub Lungs: clear anteriorly and decreased at bases Abdomen: soft, nontender, nondistended, positive bowel sounds Extremities: no cyanosis or clubbing; 2+ edema Skin: warm and intact Objective Data Vital Signs Vital Signs: Vital Signs Temp Pulse Resp BP Pulse Ox 02/16/21 10:29 100 02/16/21 09:56 70 02/16/21 06:00 36.0 C L 58 L 18 135/77 100 02/15/21 21:58 35.8 C L 68 16 150/96 H 100 02/15/21 21:57 68 02/15/21 21:35 99 02/15/21 19:45 68 16 100 02/15/21 14:00 36.4 C L 109 H 12 148/90 H 100 Intake/Output Intake/Output: Intake & Output 02/13/21 02/14/21 02/15/21 02/16/21 23:59 23:59 23:59 23:59 Intake Total 2083 1100 2255 0 Output Total 60 850 770 670 Balance 2022 250 1485 -670 Meds/Results Medications: Active Medications Generic Name Dose Route Start Last Admin Trade Name Freq PRN Reason Stop Dose Admin Benzocaine 1 lozenge 02/09/21 11:39 02/09/21 14:31 Benzocaine/Menthol (*Bkc) 18 Ea Lozenge PO 1 lozenge PRN PRN Administration Sore Throat Famotidine 20 mg 02/11/21 21:00 02/16/21 09:55 Famotidine 20 Mg/2 Ml Vial IV PUSH 20 mg Q12HR BORIS Administration Fentanyl Citrate 25 mcg 02/13/21 12:32 02/16/21 11:23 Fentanyl Citrate Inj (*Crx) 100 Mcg/2 Ml Vial IV PUSH 25 mcg Q4H PRN Administration Pain Rated 7-10 Heparin Sodium (Porcine) 500 units 02/07/21 10:01 Heparin Sod Flush 500 Units/5 Ml Syringe IV PUSH PRN PRN see comments below Heparin Sodium (Porcine) 5,000 units 02/07/21 21:0
[2021-02-16 12:19] LABS: Glucose Point of Care 93 (65-105)
[2021-02-16 12:54] LABS: Hematocrit 28.5 % (37.0-47.0); Hemoglobin 8.9 g/dL (12.0-15.0)
[2021-02-16 14:00] VITALS: BP 142/75; PULSE 71; RESP 18; TEMP 36.4; O2SAT 100
[2021-02-16] MEDS: FAT EMULSIONS IV 20% 250 ML 20.83 ML IVPB (15:19)
[2021-02-16] MEDS: AMINO ACIDS 5%/D15W/E-LYTES/CA 2,000 ML with MULTIVITAMINS-12 INJ VIAL 1 2.5 ML, MULTIV... 40 ML IV CONT (15:20)
[2021-02-16 18:20] LABS: Glucose Point of Care 91 (65-105)
[2021-02-16] MEDS: MAGNESIUM HYDROXIDE SUSP 30 ML UDC PO (18:43)
[2021-02-16 20:22] VITALS: PULSE 64
[2021-02-16 22:00] VITALS: BP 151/87; PULSE 63; RESP 16; TEMP 36.2; O2SAT 100
[2021-02-17] MEDS: fentaNYL CITRATE INJ (*CRX) 100 MCG/2 ML VIAL 25 MCG IV PUSH ×3 (00:11→10:12)
[2021-02-17 00:54] LABS: Glucose Point of Care 99 (65-105)
[2021-02-17] MEDS: CENTRAL LINE FLUSH 10 ML IV PUSH ×2 (05:50→19:53)
[2021-02-17 06:00] VITALS: BP 148/79; PULSE 60; RESP 16; TEMP 36.1; O2SAT 100
[2021-02-17 06:05] LABS: Basophils Percent Auto 0.1 % (0.2-1.2); Eosinophils Absolute Auto 0.1 K/mm3 (0-0.3); Hematocrit 24.5 % (37.0-47.0); Hemoglobin 7.8 g/dL (12.0-15.0); Immature Granulocyte Absolute 0.08 K/mm3 (0.00-0.031); Immature Granulocyte Percent A 0.9 % (0-0.5); Lymphocytes Percent Auto 11.9 % (18.3-44.2); Mean Corpuscular HGB Conc 31.8 g/dl (32-36); Mean Corpuscular Hemoglobin 29.3 pg (26-34); Mean Corpuscular Volume 92.1 fl (80-100); Mean Platelet Volume 10.9 fl (7.4-10.4); Monocytes Absolute Auto 0.6 K/mm3 (0.1-0.6); Monocytes Percent Auto 6.4 % (2.6-8.5); Neutrophils Absolute Auto 7.3 K/mm3 (1.3-6.7); Neutrophils Percent Auto 79.7 % (45.5-73.1); Platelet Count Result 76 k/mm3 (150-375); Red Blood Count 2.66 M/mm3 (4.2-5.4); Red Cell Distribution Width 14.7 % (11.5-14.5); White Blood Count 9.2 K/mm3 (4.5-10.0)
[2021-02-17 06:13] LABS: Glucose Point of Care 109 (65-105)
[2021-02-17 06:23] LABS: Anion Gap -1 mmol/L (8-16); Blood Urea Nitrogen 29 mg/dL (7-17); Calcium 6.9 mg/dL (8.4-10.2); Carbon Dioxide 23 mmol/L (22-30); Chloride 116 mmol/L (98-107); Estimated CRCL calculation 22 ml/min; Estimated Glomerular Filt Rate 26; Glucose 108 mg/dL (65-105); Phosphorus 2.8 mg/dL (2.5-4.5); Potassium 3.7 mmol/L (3.4-5.0); Sodium 138 mmol/L (137-145); Triglycerides 73 mg/dL (<150)
--- NOTE | 2021-02-17 08:03 | PM.PNGS ---
Progress Note: A&P Assessment and Plan (1) Acute on chronic kidney failure: Code(s): N17.9 - Acute kidney failure, unspecified; N18.9 - Chronic kidney disease, unspecified Status: Acute Assessment and Plan: remains somewhat oliguric. Nephrology consulted. (2) SBO (small bowel obstruction): Code(s): K56.609 - Unspecified intestinal obstruction, unspecified as to partial versus complete obstruction Status: Acute Assessment and Plan: POD #6 ---- Still awaiting full return of bowel function. Some better bowel sounds heard yesterday and today . No abdominal distention. Wound clean and dry under a clean dressing dry. [place] are intact with no surrounding induration or erythema. Will try duplex suppository today to see if we can get some stool started. Patient received 1 dose milk a magnesia down the NG tube before it was removed last evening. Plan to continue clear liquids at least until patient has a spontaneous bowel movement then will give the nurses permission to move her up to full liquids. (3) Metastatic colon cancer in female: Onset Date: ~2018 Code(s): C18.9 - Malignant neoplasm of colon, unspecified Status: Chronic Assessment and Plan: Stable (4) Protein-calorie malnutrition, severe: Code(s): E43 - Unspecified severe protein-calorie malnutrition Status: Chronic Assessment and Plan: continue TPN. (5) Abnormal urinalysis: Code(s): R82.90 - Unspecified abnormal findings in urine Status: Acute Assessment and Plan: Do not know the source of her recent UA (? Was this from only 1 side of urostomy tube?) It is growing Enterococcus and yeast. Patient does not seem to be having symptoms or elevated white count. Will leave up to Urology for further workup versus antibiotic use. (6) Bilateral hydronephrosis: Code(s): N13.30 - Unspecified hydronephrosis Status: Acute Assessment and Plan: This is been remedied with bilateral nephrostomy tubes. Hydronephrosis is suspected to be caused by her recurrent cancer. (7) Anemia: Code(s): D64.9 - Anemia, unspecified Status: Acute Additional Plan Appears the patient may have a UTI. Most recent UA and urine culture is positive for Enterococcus. Since she has nephrostomy tubes will have the nurse contact Urology about further investigation versus antibiotic use. Subjective Subjective Date/Time Seen: 02/17/21 08:03 Post Op day: POD# 6 Patient reports: feels better Interval history: Patient had minimal out her NG tube yesterday during clamping trial period NG was removed last evening and started on clear liquids. She is tolerating these well. She states she is still passing flatus but no bowel movement yet. Review of Systems Review of Systems: All systems reviewed & are unremarkable except as noted in HPI and below Constitutional: Constitutional: Reports as per HPI, Reports no additional constitutional complaints, Denies body ache(s), Denies chills, Reports difficulty sleeping, Reports fatigue, Denies fever(s), Denies headache(s), Reports lethargy and Reports weakness Eyes: Eyes: Reports no additional eye complaints, Denies eye pain and Reports other (recent cataract extraction on right eye) ENT: Reports system reviewed and no additional complaints, except as documented, Reports Normal hearing present, Denies dizziness and Denies headache(s) Cardiovascular: Cardiovascular: Reports no additional cardiovascular complaints, Denies chest pain and Denies dyspnea Respiratory: Respiratory: Reports no additional respiratory complaints, Denies cough and Denies dyspnea Gastrointestinal: Gastrointestinal: Reports as per HPI, Reports no additional gastrointestinal complaints, Denies abdominal pain, Denies melena, Denies hematochezia, Denies GI cramping, Denies heartburn, Denies diarrhea, Denies nausea and Denies vomiting Genitourinary: Genitourinary: Denies hematu
[2021-02-17] MEDS: BISACODYL 10 MG SUPPOSITORY RECTAL (10:12)
[2021-02-17] MEDS: FAMOTIDINE 20 MG/2 ML VIAL IV PUSH ×2 (10:14→19:53)
[2021-02-17 10:15] VITALS: PULSE 84
[2021-02-17] MEDS: METOPROLOL TARTRATE 12.5 MG TABLET FEED TUBE ×2 (10:15→19:59)
--- NOTE | 2021-02-17 11:25 | WPDUROPN2 ---
Progress Note: A&P Assessment and Plan (1) Metastatic colon cancer in female: Onset Date: ~2017 Code(s): C18.9 - Malignant neoplasm of colon, unspecified Status: Chronic (2) Bilateral hydronephrosis: Code(s): N13.30 - Unspecified hydronephrosis Status: Acute Assessment and Plan: Nephrostomy tubes in place and draining Cr improved from yesterday -- Nephrology following Cultures sent from nephrostomy tube growing Linette albicans and Enterococcus -- patient's nephrostomy tubes have been cultured multiple times this year, often with Linette, Enterococcus, or Pseudomonas. She is likely colonized so treatment of asymptomatic infections is not indicated. Recommend ID consultation to ensure to further benefit in eradicating Linette with a device (nephrostomy tube) in place -- though since the tubes are in place and draining, from the urologic-perspective, I defer decision to treat this finding to ID. Subjective Subjective Date/Time Seen: 02/17/21 11:25 Bilateral ureteral obstruction due to recal ca. Bilat. perc. neph. tubes continue to drain Cr 2.3 from 2.6 Normal serum WBC Urology called because culture from nephrostomy tube growing Linette albicans and Enterococcus and being asked for management recs Review of Systems Review of Systems: All systems reviewed & are unremarkable except as noted in HPI and below Exam Const: General: cooperative HENMT: Head: normal to inspection Resp: Effort & Inspection: normal respiratory effort and able to speak in complete sentences Back/Spine/Pelvis: Back: no CVA tenderness (Bilateral nephrostomy tubes in place, draining) Objective Data Vital Signs Vital Signs: Vital Signs - 24 hr 02/16/21 14:00 02/16/21 20:22 02/16/21 22:00 Temperature 36.4 C L 36.2 C L Pulse Rate 71 64 63 Respiratory Rate 18 16 Blood Pressure 142/75 H 151/87 H Pulse Oximetry 100 100 02/17/21 06:00 02/17/21 10:15 Temperature 36.1 C L Pulse Rate 60 84 Respiratory Rate 16 Blood Pressure 148/79 H Pulse Oximetry 100 Intake/Output Intake/Output: Intake & Output 02/14/21 02/15/21 02/16/21 02/17/21 23:59 23:59 23:59 23:59 Intake Total 1100 2255 2915 490 Output Total 170 395 0438 525 Balance 250 1485 1670 -35 Meds/Results Medications: Active Medications Generic Name Dose Route Start Last Admin Trade Name Freq PRN Reason Stop Dose Admin Benzocaine 1 lozenge 02/09/21 11:39 02/09/21 14:31 Benzocaine/Menthol (*Bkc) 18 Ea Lozenge PO 1 lozenge PRN PRN Administration Sore Throat Bisacodyl 10 mg 02/17/21 07:58 02/17/21 10:12 Bisacodyl 10 Mg Suppository RECTAL 10 mg QAM PRN Administration Constipation Famotidine 20 mg 02/11/21 21:00 02/17/21 10:14 Famotidine 20 Mg/2 Ml Vial IV PUSH 20 mg Q12HR BORIS Administration Fentanyl Citrate 25 mcg 02/13/21 12:32 02/17/21 10:12 Fentanyl Citrate Inj (*Crx) 100 Mcg/2 Ml Vial IV PUSH 25 mcg Q4H PRN Administration Pain Rated 7-10 Heparin Sodium (Porcine) 500 units 02/07/21 10:01 Heparin Sod Flush 500 Units/5 Ml Syringe IV PUSH PRN PRN see comments below Heparin Sodium (Porcine) 5,000 units 02/07/21 21:00 02/12/21 20:21 Heparin Sodium 5,000 Units/Ml Vial SUB-Q 5,000 units Q12HR BORIS Administration Hydralazine HCl 10 mg 02/08/21 22:11 02/08/21 22:26 Hydralazine Hcl 20 Mg/Ml Vial IV PUSH 10 mg Q4H PRN Administration Blood Pressure - High Potassium Chloride/Dextrose/Sod Cl 1,000 mls @ 125 mls/hr 02/13/21 07:00 02/14/21 18:58 Kcl 20 Meq/D5/0.9% Sod Chl IV CONT Not Given .Q8H BORIS Dextrose 1,000 mls @ 50 mls/hr 02/14/21 11:40 Dextrose 10% IV CONT .Q20H PRN if PN is interrupted Multivitamins 2.5 ml/ 2,005 mls @ 40 mls/hr 02/14/21 14:00 02/16/21 15:20 Multivitamins 2.5 ml/ Amino IV CONT 40 mls/hr Acids/Electrolytes/Dextrose .Q24H BORIS Administration Protocol Fat Emulsion Intravenous
--- NOTE | 2021-02-17 12:22 | PM.PNNEP ---
Progress Note: A&P Assessment and Plan (1) JOSE (acute kidney injury): Code(s): N17.9 - Acute kidney failure, unspecified Status: Acute Assessment and Plan: slowly improving etiology? - volume depletion - seems less likely given 4L+ with IVFs - nephrostomy tube dysfunction - appear patent and draining - infection? -- urine from nephrostomy tubes with Enterococcus + Linette but suspect colonization given previous culture data - random fluctuations in her erratic kidney function? - slow post-operative recovery? consider flushing nephrostomy tubes versus early exchange but will defer to Urology on those potential interventions follow trend of labs and UOP (2) Stage 3b chronic kidney disease: Code(s): N18.32 - Chronic kidney disease, stage 3b Status: Chronic Assessment and Plan: baseline creatinine seems to average out around 1.6 - 2.1mg/dl however, her creatinine has fluctuated to extremes including as high as 4.5mg/dl - furthermore, it seems to resolve back to baseline with no specific intervention sometimes due to 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) -- attempts at ureteral stenting failed so she ended up needing bilateral nephrostomy tubes (3) Small bowel obstruction: Onset Date: ~12/21/20 Code(s): K56.609 - Unspecified intestinal obstruction, unspecified as to partial versus complete obstruction Status: Resolved Assessment and Plan: thought to be secondary to previous surgeries and adhesions s/p adhesiolysis and enterectomy with anastomosis (on 02/11/21) General surgery following awaiting on bowel movement diet being advanced (4) Metastatic colon cancer in female: Onset Date: ~2017 Code(s): C18.9 - Malignant neoplasm of colon, unspecified Status: Chronic Assessment and Plan: follow with Hem/Onc as outpatient poor prognosis Will continue to follow. Subjective Date/time seen: 02/17/21 12:22 NG tube out and appears to be tolerating clear liquid diet; passing flatus but no bowel movement as of yet; diet slowly advancing as tolerated; diminished urine output from nephrostomy tubes but renal function improving; no acute distress voiced; no events overnight or earlier this AM. Exam Narrative: Exam Narrative: General: chronically ill appearing AA female in NAD Heart: normal S1 and S2; no rub Lungs: clear anteriorly and decreased at bases Abdomen: soft, nontender, nondistended, positive bowel sounds Extremities: no cyanosis or clubbing; 2+ edema Skin: no rash or nodules Objective Data Vital Signs Vital Signs: Vital Signs Temp Pulse Resp BP Pulse Ox 02/17/21 10:15 84 02/17/21 06:00 36.1 C L 60 16 148/79 H 100 02/16/21 22:00 36.2 C L 63 16 151/87 H 100 02/16/21 20:22 64 02/16/21 14:00 36.4 C L 71 18 142/75 H 100 Intake/Output Intake/Output: Intake & Output 02/14/21 02/15/21 02/16/21 02/17/21 23:59 23:59 23:59 23:59 Intake Total 1100 2255 2915 490 Output Total 756 275 9243 525 Balance 250 1485 1670 -35 Meds/Results Medications: Active Medications Generic Name Dose Route Start Last Admin Trade Name Freq PRN Reason Stop Dose Admin Benzocaine 1 lozenge 02/09/21 11:39 02/09/21 14:31 Benzocaine/Menthol (*Bkc) 18 Ea Lozenge PO 1 lozenge PRN PRN Administration Sore Throat Bisacodyl 10 mg 02/17/21 07:58 02/17/21 10:12 Bisacodyl 10 Mg Suppository RECTAL 10 mg QAM PRN Administration Constipation Famotidine 20 mg 02/11/21 21:00 02/17/21 10:14 Famotidine 20 Mg/2 Ml Vial IV PUSH 20 mg Q12HR BORIS Administration Fentanyl Citrate 25 mcg 02/13/21 12:32 02/17/21 10:12 Fentanyl Citrate Inj (*Crx) 100 Mcg/2 Ml Vial IV PUSH 25 mcg Q4H PRN Administration Pain Rated 7-10 Heparin Sodium (Porcin
[2021-02-17 14:00] VITALS: BP 121/67; PULSE 63; RESP 18; TEMP 36.5; O2SAT 100
--- NOTE | 2021-02-17 14:11 | PM.IMPN ---
Progress Note: A&P Assessment and Plan (1) Complete small bowel obstruction: Code(s): K56.601 - Complete intestinal obstruction, unspecified as to cause Status: Resolved Assessment and Plan: She reported colicky abdominal pain with progressive worsening for 3 days prior to presentation. Last bowel movement was 02/02/21. She has a hx of several small bowel obstructions. Likely secondary to adhesions from multiple abdominal surgeries in the past vs metastatic colon cancer. CT abd/pelvis demonstrated small bowel obstruction with clear transition point. She failed to improve with conservative therapy, therefore underwent adhesiolysis and enterectomy with anastomosis by Dr. Miller on 02/11/2021. She tolerated the procedure well and pain is controlled POD 6. Appreciate general surgery consultation NG tube has been removed. Continue clear liquid diet. Advance diet per General surgery Continue TPN until tolerating diet One time Dulcolax suppository today to help stimulate bowel movement. Discussed case with Dr. Corral and also added Relistor as she is receiving opioid pain medication. Analgesics and antiemetics available as needed for pain (2) Metastatic colon cancer in female: Onset Date: ~2017 Code(s): C18.9 - Malignant neoplasm of colon, unspecified Status: Chronic Assessment and Plan: Diagnosed in 2016, s/p colectomy and adjuvant chemotherapy w/ FOLFOX at [facility]. S/P hyperthermic intraperitoneal chemotherapy and debulking surgery in 2018 in [place]. S/P bilateral nephrostomy tube placement August 2020 due to extrinsic compression of the ureters from large tumor burden consistent with recurrent metastatic cancer evident. She follows with Dr. Arango and receives palliative panitumumab every other week. Continue oncology recommendations and immunotherapy (3) Acute on chronic kidney failure: Code(s): N17.9 - Acute kidney failure, unspecified; N18.9 - Chronic kidney disease, unspecified Status: Acute Assessment and Plan: Baseline Cr fluctuates. On review of labs, Cr has been between 1.6-3.8. Nephrostomy tubes present. Renal ultrasound on 02/09/2021 showed moderate right renal atrophy without evidence of hydronephrosis and nephrostomy tubes in expected position. She had decreased urine output but this appears to be slowly improving. Creatinine increased up to 2.9 with downward trend. Creatinine 2.3 today. Monitor volume status closely with strict I&O. Continue to monitor renal function closely. Renally dose medications and avoid nephrotoxins Consult placed to nephrology. Input is appreciated. Dr. Teran consulted for evaluation of nephrostomy tubes which are patent and draining (4) Anemia of chronic disease: Code(s): D63.8 - Anemia in other chronic diseases classified elsewhere Status: Acute Assessment and Plan: Suspect multifactorial related to iron deficiency, malignancy, and chronic kidney disease. There is no evidence of acute bleeding. Vital signs are stable. Hemoglobin was 10.9 at presentation and has declined to about 7.5 and remaining stable there. Monitor CBC daily and transfuse as needed to maintain Hb >7 (5) Congestive heart failure: Qualifiers: Heart failure type: diastolic Heart failure chronicity: chronic Qualified Code(s): I50.32 - Chronic diastolic (congestive) heart failure Code(s): I50.9 - Heart failure, unspecified Status: Chronic Assessment and Plan: Chronic, diastolic. Last echocardiogram 03/2020 shows EF 55-60%. BNP is elevated. CXR obtained to ensure no evidence of fluid overload. which showed small bilateral pleural effusions without evidence of pulmonary edema. Lungs are clear to auscultation. She has a 7 L positive fluid balance, however she is asymptomatic. Will hold off on diuresis at this time. Would consider IV albumin followed by diuresis if she developed symptoms of fluid o
[2021-02-17] MEDS: AMINO ACIDS 5%/D15W/E-LYTES/CA 2,000 ML with MULTIVITAMINS-12 INJ VIAL 1 2.5 ML, MULTIV... 40 ML IV CONT (14:41)
[2021-02-17] MEDS: FAT EMULSIONS IV 20% 250 ML 20.8 ML IVPB (14:42)
[2021-02-17] MEDS: METHYLNALTREXONE 12 MG/0.6 ML VIAL SUB-Q (15:13)
[2021-02-17] MEDS: HYDROmorphone HCL INJ (*CRX) 1 MG/ML SYR 0.5 MG IV PUSH ×2 (15:13→19:54)
[2021-02-17 17:57] LABS: Glucose Point of Care 72 (65-105)
--- NOTE | 2021-02-17 18:27 | PC.NURSE ---
This nurse noted a moderate size BM along with mucous and red blood. Asked pt if she frequently had blood in her stool. She stated since her cancer, she has noticed increased straining to have a BM, which often results in blood in her stool.
[2021-02-17 19:59] VITALS: PULSE 72
[2021-02-17 22:00] VITALS: BP 133/81; PULSE 76; RESP 20; TEMP 36.8; O2SAT 100
[2021-02-18] MEDS: HYDROmorphone HCL INJ (*CRX) 1 MG/ML SYR 0.5 MG IV PUSH ×6 (00:17→17:00)
[2021-02-18 00:33] LABS: Glucose Point of Care 124 (65-105)
[2021-02-18] MEDS: CENTRAL LINE FLUSH 20 ML IV PUSH (04:55)
[2021-02-18] MEDS: CENTRAL LINE FLUSH 10 ML IV PUSH ×3 (04:55→20:50)
[2021-02-18 05:18] LABS: Basophils Percent Auto 0.1 % (0.2-1.2); Eosinophils Absolute Auto 0.1 K/mm3 (0-0.3); Eosinophils Percent Auto 0.9 % (0-4.4); Hematocrit 21.7 % (37.0-47.0); Hemoglobin 7.5 g/dL (12.0-15.0); Immature Granulocyte Absolute 0.08 K/mm3 (0.00-0.031); Immature Granulocyte Percent A 0.9 % (0-0.5); Immature Platelet Fraction Pct 2.4 % (0.9-11.2); Lymphocytes Absolute Auto 0.87 K/mm3 (0.9-3.2); Lymphocytes Percent Auto 9.4 % (18.3-44.2); Mean Corpuscular HGB Conc 34.6 g/dl (32-36); Mean Corpuscular Hemoglobin 32.2 pg (26-34); Mean Corpuscular Volume 93.1 fl (80-100); Mean Platelet Volume 10.2 fl (7.4-10.4); Monocytes Absolute Auto 0.6 K/mm3 (0.1-0.6); Monocytes Percent Auto 6.3 % (2.6-8.5); Neutrophils Absolute Auto 7.7 K/mm3 (1.3-6.7); Neutrophils Percent Auto 82.4 % (45.5-73.1); Platelet Count Result 78 k/mm3 (150-375); Red Blood Count 2.33 M/mm3 (4.2-5.4); Red Cell Distribution Width 14.8 % (11.5-14.5); White Blood Count 9.3 K/mm3 (4.5-10.0)
[2021-02-18 05:28] LABS: Prothrombin Time 13.7 Seconds (11.1-14.7)
[2021-02-18 05:29] LABS: Albumin Level 1.5 g/dL (3.5-5.1); Alkaline Phosphatase 39 U/L (38-126); Anion Gap 2 mmol/L (8-16); Aspartate Amino Transferase 14 U/L (14-36); Bilirubin,Total < 0.1 mg/dL (0.2-1.3); Blood Urea Nitrogen 29 mg/dL (7-17); Carbon Dioxide 21 mmol/L (22-30); Chloride 111 mmol/L (98-107); Estimated CRCL calculation 27 ml/min; Estimated Glomerular Filt Rate 33; Glucose 262 mg/dL (65-105); Magnesium 1.5 mg/dL (1.6-2.3); Partial Thromboplastin Time 34.6 SECONDS (22.3-36.8); Phosphorus 3.6 mg/dL (2.5-4.5); Potassium 4.1 mmol/L (3.4-5.0); Sodium 134 mmol/L (137-145)
[2021-02-18 05:55] LABS: Alanine Aminotransferase < 4 U/L (4-35); Transferrin < 80 mg/dL (206-381)
[2021-02-18 06:00] VITALS: BP 139/81; PULSE 60; RESP 20; TEMP 36.1; O2SAT 99
[2021-02-18 06:25] LABS: Glucose Point of Care 115 (65-105)
--- NOTE | 2021-02-18 06:39 | PM.PNNEP ---
Progress Note: A&P Assessment and Plan (1) JOSE (acute kidney injury): Code(s): N17.9 - Acute kidney failure, unspecified Status: Acute Assessment and Plan: JOSE Moderate right renal atrophy and nephrostomy tubes bilaterally. No hydronephrosis. Urine electrolytes non pre renal. Urine eosinophils negative. etiology? - volume depletion -she appears euvolemic currently. - nephrostomy tube dysfunction - appear patent and draining - infection? -- urine from nephrostomy tubes with Enterococcus + Linette but suspect colonization given previous culture data - random fluctuations in her erratic kidney function? - slow post-operative recovery? Creatinine has improved today. Will check another tomorrow (2) Stage 3b chronic kidney disease: Code(s): N18.32 - Chronic kidney disease, stage 3b Status: Chronic Assessment and Plan: baseline creatinine seems to average out around 1.6 - 2.1mg/dl Today her creatinine seems to be back to baseline. due to 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) -- attempts at ureteral stenting failed so she ended up needing bilateral nephrostomy tubes (3) Small bowel obstruction: Onset Date: ~12/21/20 Code(s): K56.609 - Unspecified intestinal obstruction, unspecified as to partial versus complete obstruction Status: Resolved Assessment and Plan: thought to be secondary to previous surgeries and adhesions s/p adhesiolysis and enterectomy with anastomosis (on 02/11/21) On TPN now. General surgery following awaiting on bowel movement diet being advanced (4) Metastatic colon cancer in female: Onset Date: ~2017 Code(s): C18.9 - Malignant neoplasm of colon, unspecified Status: Chronic Assessment and Plan: follow with Hem/Onc as outpatient poor prognosis Will continue to follow. Subjective Date/time seen: 02/18/21 06:39 Interval history: Patient is feeling okay this morning. She is eager to start eating. She has no shortness of breath or chest pain. Review of Systems Cardiovascular: Cardiovascular: Reports no additional cardiovascular complaints Respiratory: Respiratory: Reports no additional respiratory complaints Gastrointestinal: Gastrointestinal: Reports no additional gastrointestinal complaints Genitourinary: Genitourinary: Reports no additional female genitourinary complaints Exam Narrative: Exam Narrative: General: chronically ill appearing AA female in NAD Heart: normal S1 and S2; no rub or gallop Lungs: clear anteriorly and decreased at bases Abdomen: soft, nontender, nondistended, positive bowel sounds Extremities: 1-2+ edema Skin: no rash Objective Data Vital Signs Vital Signs: Vital Signs - 24 hr 02/17/21 10:15 02/17/21 14:00 02/17/21 19:59 Temperature 36.5 C Pulse Rate 84 63 72 Respiratory Rate 18 Blood Pressure 121/67 Pulse Oximetry 100 02/17/21 22:00 02/18/21 06:00 Temperature 36.8 C 36.1 C L Pulse Rate 76 60 Respiratory Rate 20 20 Blood Pressure 133/81 139/81 Pulse Oximetry 100 99 Intake/Output Intake/Output: Intake & Output 02/15/21 02/16/21 02/17/21 02/18/21 23:59 23:59 23:59 23:59 Intake Total 2255 2915 5175 150 Output Total 770 1245 2275 350 Balance 1485 1670 2900 -200 Meds/Results Medications: Active Medications Generic Name Dose Route Start Last Admin Trade Name Freq PRN Reason Stop Dose Admin Benzocaine 1 lozenge 02/09/21 11:39 02/09/21 14:31 Benzocaine/Menthol (*Bkc) 18 Ea Lozenge PO 1 lozenge PRN PRN Administration Sore Throat Bisacodyl 10 mg 02/17/21 07:58 02/17/21 10:12 Bisacodyl 10 Mg Suppository RECTAL 10 mg QAM PRN Administration Constipation Famotidine 20 mg 02/11/21 21:00 02/17/21 19:53 Famotidine 20 Mg/2 Ml Vial IV PUSH 20 mg Q12HR BORIS Administrati
[2021-02-18] MEDS: FAMOTIDINE 20 MG/2 ML VIAL IV PUSH ×2 (09:53→20:49)
[2021-02-18 09:55] VITALS: PULSE 88
[2021-02-18] MEDS: METOPROLOL TARTRATE 12.5 MG TABLET FEED TUBE ×2 (09:55→20:49)
[2021-02-18] MEDS: MAGNESIUM SULF 2 GM/WATER 50ML 2 GM/50 ML BAG IVPB (10:00)
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
--- NOTE | 2021-02-18 12:02 | WPDINFPN2 ---
Progress Note: A&P Assessment and Plan (1) Bacteriuria, asymptomatic: Code(s): R82.71 - Bacteriuria Status: Acute Assessment and Plan: Asymptomatic bacteriuria and funguria REC No antimicrobials indicated Subjective Date/time seen: 02/18/21 12:02 Objective Data Vital Signs Vital Signs: Vital Signs - 24 hr 02/17/21 14:00 02/17/21 19:59 02/17/21 22:00 Temperature 36.5 C 36.8 C Pulse Rate 63 72 76 Respiratory Rate 18 20 Blood Pressure 121/67 133/81 Pulse Oximetry 100 100 02/18/21 06:00 02/18/21 09:55 Temperature 36.1 C L Pulse Rate 60 88 Respiratory Rate 20 Blood Pressure 139/81 Pulse Oximetry 99 Intake/Output Intake/Output: Intake & Output 02/15/21 02/16/21 02/17/21 02/18/21 23:59 23:59 23:59 23:59 Intake Total 2255 2915 5175 270 Output Total 770 1245 2275 350 Balance 1485 1670 2900 -80 Meds/Results Medications: Active Medications Generic Name Dose Route Start Last Admin Trade Name Freq PRN Reason Stop Dose Admin Benzocaine 1 lozenge 02/09/21 11:39 02/09/21 14:31 Benzocaine/Menthol (*Bkc) 18 Ea Lozenge PO 1 lozenge PRN PRN Administration Sore Throat Bisacodyl 10 mg 02/17/21 07:58 02/17/21 10:12 Bisacodyl 10 Mg Suppository RECTAL 10 mg QAM PRN Administration Constipation Famotidine 20 mg 02/11/21 21:00 02/18/21 09:53 Famotidine 20 Mg/2 Ml Vial IV PUSH 20 mg Q12HR BORIS Administration Heparin Sodium (Porcine) 500 units 02/07/21 10:01 Heparin Sod Flush 500 Units/5 Ml Syringe IV PUSH PRN PRN see comments below Heparin Sodium (Porcine) 5,000 units 02/07/21 21:00 02/12/21 20:21 Heparin Sodium 5,000 Units/Ml Vial SUB-Q 5,000 units Q12HR BORIS Administration Hydralazine HCl 10 mg 02/08/21 22:11 02/08/21 22:26 Hydralazine Hcl 20 Mg/Ml Vial IV PUSH 10 mg Q4H PRN Administration Blood Pressure - High Hydromorphone HCl 0.5 mg 02/17/21 13:48 02/18/21 10:12 Hydromorphone Hcl Inj (*Crx) 1 Mg/Ml Syr IV PUSH 0.5 mg Q3H PRN Administration Pain Rated 7-10 Dextrose 1,000 mls @ 50 mls/hr 02/14/21 11:40 Dextrose 10% IV CONT .Q20H PRN if PN is interrupted Metoprolol Tartrate 12.5 mg 02/09/21 09:00 02/18/21 09:55 Metoprolol Tartrate 12.5 Mg Tablet FEED TUBE 12.5 mg Q12HR BORIS Administration Miconazole Nitrate 1 applic 02/07/21 09:00 02/18/21 09:56 Miconazole 2% Antifungal Ointment 56 Gm TOPICAL 1 applic Q12HR BORIS Administration Naloxone HCl 0.1 mg 02/11/21 20:24 Naloxone Hcl 0.4 Mg/Ml Vial IV PUSH Q2M PRN Opiate Reversal Ondansetron HCl 4 mg 02/12/21 04:38 02/14/21 11:05 Ondansetron Inj 4 Mg/2 Ml Vial IV PUSH 4 mg Q4H PRN Administration Nausea And Vomiting Sodium Chloride 10 ml 02/07/21 14:00 02/18/21 04:55 Central Line Flush IV PUSH 10 ml Q8HR BORIS Administration Sodium Chloride 10 ml 02/07/21 10:01 Central Line Flush IV PUSH PRN PRN before/after int. infusion Sodium Chloride 20 ml 02/07/21 10:01 02/18/21 04:55 Central Line Flush IV PUSH 20 ml PRN PRN Administration after blood draws Radiology Results: ITS Impressions Abdomen/Pelvis CT 02/06/21 19:20 IMPRESSION: 1. Small bowel obstruction. 2. Mass of the sigmoid colon just beyond the anastomosis without definite interval change. 3. Stable right pelvic lymphadenopathy, consistent with metastatic disease. Upper GI Series 02/08/21 17:12 IMPRESSION: Small bowel obstruction. Venous Doppler Study 02/09/21 13:47 IMPRESSION: No lower extremity deep venous thrombosis bilaterally. Renal Ultrasound 02/09/21 13:56 IMPRESSION: 1. Moderate right renal atrophy. 2. Nephrostomy tubes in position. 3. No hydronephrosis. Abdomen X-Ray 02/10/21 07:36 IMPRESSION: 1. Small bowel obstruction. Chest X-Ray 02/14/21 13:23 IMPRESSION: 1. Small pleural effusions, left worse than
--- NOTE | 2021-02-18 13:10 | PM.IMPN ---
Progress Note: A&P Assessment and Plan (1) Complete small bowel obstruction: Code(s): K56.601 - Complete intestinal obstruction, unspecified as to cause Status: Resolved Assessment and Plan: She reported colicky abdominal pain with progressive worsening for 3 days prior to presentation. She has a hx of several small bowel obstructions. Likely secondary to adhesions from multiple abdominal surgeries in the past vs metastatic colon cancer. CT abd/pelvis demonstrated SBO with clear transition point. She failed to improve with conservative therapy, therefore underwent adhesiolysis and enterectomy with anastomosis by Dr. Miller on 02/11/2021. She tolerated the procedure well and pain is controlled. She had a bowel movement yesterday following dulcolax suppository and Relistor. POD 7. Appreciate general surgery consultation NG tube removed 02/17. Continue diet per general surgery TPN discontinued today as she is tolerating PO intake. Analgesics and antiemetics available as needed for pain (2) Metastatic colon cancer in female: Onset Date: ~2017 Code(s): C18.9 - Malignant neoplasm of colon, unspecified Status: Chronic Assessment and Plan: Diagnosed in 2016, s/p colectomy and adjuvant chemotherapy w/ FOLFOX at [facility]. S/P hyperthermic intraperitoneal chemotherapy and debulking surgery in 2018 in [place]. S/P bilateral nephrostomy tube placement August 2020 due to extrinsic compression of the ureters from large tumor burden consistent with recurrent metastatic cancer evident. She follows with Dr. Arango and receives palliative panitumumab every other week. Continue oncology recommendations and immunotherapy (3) Acute on chronic kidney failure: Code(s): N17.9 - Acute kidney failure, unspecified; N18.9 - Chronic kidney disease, unspecified Status: Acute Assessment and Plan: Baseline Cr fluctuates. On review of labs, Cr has been between 1.6-3.8. Nephrostomy tubes present. Renal ultrasound on 02/09/2021 showed moderate right renal atrophy without evidence of hydronephrosis and nephrostomy tubes in expected position. She had decreased urine output but this appears to be slowly improving. Creatinine increased up to 2.9 and continues to improve. Cr 1.9 today. Monitor volume status closely with strict I&O. Continue to monitor renal function closely. Renally dose medications and avoid nephrotoxins Consult placed to nephrology. Input is appreciated. Dr. Teran consulted for evaluation of nephrostomy tubes which are patent and draining (4) Anemia of chronic disease: Code(s): D63.8 - Anemia in other chronic diseases classified elsewhere Status: Acute Assessment and Plan: Suspect multifactorial related to iron deficiency, malignancy, and chronic kidney disease. There is no evidence of acute bleeding. Vital signs are stable. Hemoglobin was 10.9 at presentation and has declined to about 7.5 and remaining stable there. Monitor CBC daily and transfuse as needed to maintain Hb >7 (5) Congestive heart failure: Qualifiers: Heart failure type: diastolic Heart failure chronicity: chronic Qualified Code(s): I50.32 - Chronic diastolic (congestive) heart failure Code(s): I50.9 - Heart failure, unspecified Status: Chronic Assessment and Plan: Chronic, diastolic. Last echocardiogram 03/2020 shows EF 55-60%. BNP is elevated. CXR obtained to ensure no evidence of fluid overload. which showed small bilateral pleural effusions without evidence of pulmonary edema. Lungs are clear to auscultation. Will hold off on diuresis at this time. Would consider IV albumin followed by diuresis if she developed symptoms of fluid overload. Discussed with nephrology and appreciate their assistance with managing volume status. Monitor intake and output. Weigh daily (6) Lymphedema: Code(s): I89.0 - Lymphedema, not elsewhere classified
[2021-02-18 14:00] VITALS: BP 129/69; PULSE 77; RESP 16; TEMP 36.6; O2SAT 100
--- NOTE | 2021-02-18 14:23 | PM.PNGS ---
Progress Note: A&P Assessment and Plan (1) SBO (small bowel obstruction): Code(s): K56.609 - Unspecified intestinal obstruction, unspecified as to partial versus complete obstruction Status: Acute Assessment and Plan: POD #7 and bowel function has returned. Will advance to a regular diet and stop TPN/lipids. Will have the nurse remove every other staple from the midline incision and continue dressing changes daily. No signs of wound infection at this time, continue to monitor. Encouraged her to increase activity and continue to work with PT to improve strength. (2) Acute on chronic kidney failure: Code(s): N17.9 - Acute kidney failure, unspecified; N18.9 - Chronic kidney disease, unspecified Status: Acute Assessment and Plan: Unclear etiology, creatinine improving. Nephrostomy tubes appear to be functioning well. Nephrology following and appreciate their help. Continue to monitor labs. (3) Metastatic colon cancer in female: Onset Date: ~2017 Code(s): C18.9 - Malignant neoplasm of colon, unspecified Status: Chronic (4) Protein-calorie malnutrition, severe: Code(s): E43 - Unspecified severe protein-calorie malnutrition Status: Chronic Assessment and Plan: Now tolerating a regular diet. Will discontinue TPN/lipids today. (5) Abnormal urinalysis: Code(s): R82.90 - Unspecified abnormal findings in urine Status: Acute Assessment and Plan: Enterococcus and Linette growth on recent urine culture felt to be colonization. ID consulted and recommends deferring abx treatment. Additional Plan I discussed the plan of care with Dr. Miller. Subjective Subjective Date/Time Seen: 02/18/21 14:23 Post Op day: 7 (Adhesiolysis, enterectomy with anastomosis) Patient reports: no new complaints, tolerating a regular diet, flatus and bowel movement Interval history: Patient seen today and doing well. Denies nausea or vomiting. Tolerating diet. No other complaints. Per the nurse, she was weak getting up but was up to chair for 2-3 hours today. Review of Systems Review of Systems: All systems reviewed & are unremarkable except as noted in HPI and below Exam Const: General: comfortable, no acute distress and awake Orientation/consciousness: patient oriented x3 Chest: Other: Right chest Port-A-Cath in place and accessed Resp: Effort & Inspection: normal respiratory effort and no respiratory distress Auscultation: clear to auscultation bilaterally Cardio: Rate: regular rate Rhythm: regular rhythm GI: Inspection: non-distended GI Palp: Yes Soft to palpation, Yes Tenderness to palpation present (GI) (incisional) and No Guarding due to palpation present (GI) Auscultation: normal bowel sounds Other: Midline incision with mercedez intact, minimal serosanguineous drainage from wound, no redness or signs of infection : Other: Bilateral nephrostomy tubes with clear yellow output. Left draining a lot more than right. Neuro: General: moves all extremities and no focal motor deficits Extrem: General: edema bilateral (bileral upper ext, mild 1+ edema) Psych: Mental Status: mental status grossly normal Insight: Good insight present (Psych) Judgement: Good judgement present (Psych) Objective Data Vital Signs Vital Signs: Vital Signs - 24 hr 02/17/21 19:59 02/17/21 22:00 02/18/21 06:00 Temperature 98.2 F 97 F L Pulse Rate 72 76 60 Respiratory Rate 20 20 Blood Pressure 133/81 139/81 Pulse Oximetry 100 99 02/18/21 09:55 Temperature Pulse Rate 88 Respiratory Rate Blood Pressure Pulse Oximetry Intake/Output Intake/Output: Intake & Output 02/15/21 02/16/21 02/17/21 02/18/21 23:59 23:59 23:59 23:59 Intake Total 2255 2915 5175 390 Output Total 770 1245 2275 350 Balance 1485 1670 2900 40 Meds/Results Medications: Active Medications Generic Name Dose Route Start Last Admin Trade Name Freq PRN Reason Stop Dose Admin Acetaminop
--- NOTE | 2021-02-18 17:10 | CONS_ITS ---
DATE OF CONSULTATION: 02/18/2021 REASON FOR CONSULTATION: Abnormal UA. HISTORY OF PRESENT ILLNESS: A 60-year-old female, whom I have seen multiple times in the past for abnormal urinalysis findings judged to be without infection. She was admitted to the hospital once again on February 06 with abdominal pain. She was taken to the operating room on February 11 and underwent adhesiolysis with findings including small bowel obstruction and metastatic colon cancer. Operative findings are reviewed and were extensive. She is now postop day #7. She has also been seen by Nephrology and Urology. She has a nonfunctioning kidney on the right with bilateral nephrostomy tubes. They have been functioning well. She has not required any urologic interventions. The patient denies fever, chills, or sweats. Her abdominal pain is significantly improved. The patient is on no current antimicrobials. Urinalysis was obtained several days ago for undocumented reason and consultation now requested. She did receive perioperative Ancef for surgical prophylaxis. ALLERGIES: MULTIPLE LISTED. HABITS: Ex-smoker. No alcohol. PRESENT MEDICATIONS: See above. PAST MEDICAL HISTORY: TAHBSO, cataract extractions, BTL, partial colectomy, nephrostomy tubes are necessary because of ureteral obstruction from tumor. She gets immunotherapy every 2 weeks via Port-A-Cath. She has a known hypertension, prior DVT, heart failure, anxiety, and anemia. FAMILY HISTORY: Not pertinent to her present illness. SOCIAL HISTORY: No family at the bedside. She is . 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 REVIEW OF SYSTEMS: 14-point review otherwise negative. PHYSICAL EXAMINATION: GENERAL: This is a middle-aged female, who appears younger than her actual age, in no acute distress. VITAL SIGNS: She has been afebrile 60, 20, 139/81, 100% room air. SKIN: No rashes. NODES: No cervical adenopathy. EENT: Pupils equal, round, and reactive to light. Oropharynx, oral mucosa normal. Sinuses nontender. NECK: No meningismus, mass, tenderness. LUNGS: Clear to auscultation and percussion. BACK: No CVAT. CARDIAC: Regular rate and rhythm. No murmurs or gallops. ABDOMEN: Mildly distended. Hypoactive bowel sounds. Nontender. No organomegaly. EXTREMITIES: 1+ ankle edema. CHEST: She has accessed her Port-A-Cath on the right upper chest. She also has a left EJ Hep-Lock in place. LABORATORY DATA: Blood cultures 01/18 with VRE and Linette albicans. Urinalysis, multiple abnormalities, which are reviewed. White blood cell count 9.3, was 4.9 on admission, 14.0 on the 15th, hemoglobin 7.5, platelets are 78,000, much stable. Her chemistries, mild hyponatremia, hyperchloremia, BUN 29, creatinine 1.9, glucose 262. Anemia evaluation noted. Albumin 1.5. RADIOLOGY: Renal ultrasound, normal kidneys other than cysts and atrophy on the right. ASSESSMENT: 1. Asymptomatic bacteruria and funguria, no infection present. Her tubes are colonized. 2. Metastatic colon cancer. 3. Small bowel obstruction, recovering postop. 4. Protein-calorie malnutrition. 5. Chronic renal insufficiency. RECOMMENDATIONS: 1. Nephrostomy tubes draining well. She has no sediment on the functioning left kidney drainage collection. 2. No antimicrobials are indicated. From my standpoint, there is no utility in exchanging her tubes. I would not place on suppressive antimicrobials. Thank you for asking me to see her. JADE PADRON M.D. [employer] CONSULTANT AND DESIGNER [employer] CONSULTANT AND DES[employer]ER D I MT: [place]
[2021-02-18 20:49] VITALS: PULSE 68
[2021-02-18] MEDS: oxyCODONE/ACETAMINOPHEN (*CRX) 5-325 MG TABLET 1 TABLET PO (20:52)
[2021-02-18] MEDS: ONDANSETRON INJ 4 MG/2 ML VIAL IV PUSH (20:53)
[2021-02-18 22:00] VITALS: BP 133/77; PULSE 61; RESP 20; TEMP 36.9; O2SAT 100
[2021-02-19] MEDS: oxyCODONE/ACETAMINOPHEN (*CRX) 5-325 MG TABLET 1 TABLET PO ×2 (03:56→10:14)
[2021-02-19] MEDS: CENTRAL LINE FLUSH 10 ML IV PUSH ×3 (05:04→22:02)
[2021-02-19] MEDS: CENTRAL LINE FLUSH 20 ML IV PUSH (05:04)
--- NOTE | 2021-02-19 05:11 | PC.NURSE ---
patient took Percocet PO through the night for pain, was very irritated and frustrated that she didn't get her Dilaudid but she fell asleep and rested well while on Percocet PO.. Seems like a good option for her. -AEW RN
[2021-02-19 05:51] VITALS: BP 119/73; PULSE 66; RESP 20; TEMP 37; O2SAT 100
[2021-02-19 06:20] LABS: Albumin Level 1.7 g/dL (3.5-5.1); Anion Gap 0 mmol/L (8-16); Blood Urea Nitrogen 28 mg/dL (7-17); Calcium 6.9 mg/dL (8.4-10.2); Carbon Dioxide 23 mmol/L (22-30); Chloride 113 mmol/L (98-107); Estimated CRCL calculation 27 ml/min; Estimated Glomerular Filt Rate 33; Glucose 93 mg/dL (65-105); Hematocrit 21.8 % (37.0-47.0); Magnesium 1.5 mg/dL (1.6-2.3); Mean Corpuscular HGB Conc 32.1 g/dl (32-36); Mean Corpuscular Hemoglobin 29.7 pg (26-34); Mean Corpuscular Volume 92.4 fl (80-100); Mean Platelet Volume 10.8 fl (7.4-10.4); Phosphorus 2.9 mg/dL (2.5-4.5); Platelet Count Result 105 k/mm3 (150-375); Red Blood Count 2.36 M/mm3 (4.2-5.4); Red Cell Distribution Width 14.9 % (11.5-14.5); Sodium 136 mmol/L (137-145); White Blood Count 9.9 K/mm3 (4.5-10.0)
--- NOTE | 2021-02-19 06:28 | PC.NURSE ---
attempted to reach Dr. Apodaca regarding critical low hemoglobin at 06:28 via hospitalist extension with no answer -AEW RN
--- NOTE | 2021-02-19 06:39 | PM.PNNEP ---
Progress Note: A&P Assessment and Plan (1) JOSE (acute kidney injury): Code(s): N17.9 - Acute kidney failure, unspecified Status: Acute Assessment and Plan: JOSE Moderate right renal atrophy and nephrostomy tubes bilaterally. No hydronephrosis. Urine electrolytes non pre renal. Urine eosinophils negative. etiology? - volume depletion -she appears euvolemic currently. - nephrostomy tube dysfunction - appear patent and draining - infection? Dr. dawn on the case and says this is just colonization - slow post-operative recovery? Creatinine seems to be settling at around 1.9. Will check another tomorrow (2) Stage 3b chronic kidney disease: Code(s): N18.32 - Chronic kidney disease, stage 3b Status: Chronic Assessment and Plan: baseline creatinine seems to average out around 1.6 - 2.1mg/dl Today her creatinine seems to be back to baseline. due to 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) -- attempts at ureteral stenting failed so she ended up needing bilateral nephrostomy tubes (3) Small bowel obstruction: Onset Date: ~12/21/20 Code(s): K56.609 - Unspecified intestinal obstruction, unspecified as to partial versus complete obstruction Status: Resolved Assessment and Plan: thought to be secondary to previous surgeries and adhesions s/p adhesiolysis and enterectomy with anastomosis (on 02/11/21) On TPN now. Eating as well. I ordered some breakfast this morning. (4) Metastatic colon cancer in female: Onset Date: ~2017 Code(s): C18.9 - Malignant neoplasm of colon, unspecified Status: Chronic Assessment and Plan: follow with Hem/Onc as outpatient poor prognosis Will continue to follow. Subjective Date/time seen: 02/19/21 06:39 Interval history: Patient is feeling okay this morning. She ate some yesterday. No problems with nausea or vomiting. She has no shortness of breath or chest pain. Review of Systems Cardiovascular: Cardiovascular: Reports no additional cardiovascular complaints Respiratory: Respiratory: Reports no additional respiratory complaints Gastrointestinal: Gastrointestinal: Reports no additional gastrointestinal complaints Genitourinary: Genitourinary: Reports no additional female genitourinary complaints Exam Narrative: Exam Narrative: General: chronically ill appearing AA female in NAD Heart: normal S1 and S2; no rub Lungs: clear anteriorly and decreased at bases Abdomen: soft, nontender, nondistended, positive bowel sounds Extremities: 1-2+ edema bilaterally Skin: no rash or subcu nodules Objective Data Vital Signs Vital Signs: Vital Signs - 24 hr 02/18/21 09:55 02/18/21 14:00 02/18/21 20:49 Temperature 36.6 C Pulse Rate 88 77 68 Respiratory Rate 16 Blood Pressure 129/69 Pulse Oximetry 100 02/18/21 22:00 02/19/21 05:51 Temperature 36.9 C 37.0 C Pulse Rate 61 66 Respiratory Rate 20 20 Blood Pressure 133/77 119/73 Pulse Oximetry 100 100 Intake/Output Intake/Output: Intake & Output 02/16/21 02/17/21 02/18/21 02/19/21 23:59 23:59 23:59 23:59 Intake Total 2915 5175 1060 200 Output Total 1245 2275 650 300 Balance 1670 2900 410 -100 Meds/Results Medications: Active Medications Generic Name Dose Route Start Last Admin Trade Name Freq PRN Reason Stop Dose Admin Acetaminophen 650 mg 02/18/21 13:22 Acetaminophen 325 Mg Tablet PO Q4H PRN Pain 1-5 Benzocaine 1 lozenge 02/09/21 11:39 02/09/21 14:31 Benzocaine/Menthol (*Bkc) 18 Ea Lozenge PO 1 lozenge PRN PRN Administration Sore Throat Bisacodyl 10 mg 02/17/21 07:58 02/17/21 10:12 Bisacodyl 10 Mg Suppository RECTAL 10 mg QAM PRN Administration Constipation Famotidine 20 mg 02/11/21 21:00 02/18/21 20:49 Famotidine 20 Mg/2 Ml Vial IV PUSH 20
--- NOTE | 2021-02-19 06:43 | PC.NURSE ---
Attempted to call Dr. Apodaca a second time about patient's critical lab hemoglobin at 06:43 and had no answer. -AEW RN
--- NOTE | 2021-02-19 08:29 | PM.PNGS ---
Progress Note: A&P Assessment and Plan (1) SBO (small bowel obstruction): Code(s): K56.609 - Unspecified intestinal obstruction, unspecified as to partial versus complete obstruction Status: Resolved Assessment and Plan: Patient needing well. Can be followed as an outpatient from a surgical standpoint. Still needs daily dressing changes to abdominal wound and will lightly pack with dry gauze the periumbilical open area to avoid infection. (2) Metastatic colon cancer in female: Onset Date: ~2017 Code(s): C18.9 - Malignant neoplasm of colon, unspecified Status: Chronic Assessment and Plan: Still having abdominal pain. Suspect this is due to malignancy. Abdominal exam essentially negative. Request Dilaudid. (3) Chronic kidney disease: Onset Date: ~03/2020 Qualifiers: Chronic kidney disease stage: stage 3 (moderate) Chronic kidney disease stage 3 subtype: stage 3b (GFR 30-44) Qualified Code(s): N18.32 - Chronic kidney disease, stage 3b Code(s): N18.9 - Chronic kidney disease, unspecified Status: Chronic Assessment and Plan: Creatinine back down to baseline. (4) Anemia of chronic disease: Code(s): D63.8 - Anemia in other chronic diseases classified elsewhere Status: Acute Assessment and Plan: Multifactorial. Hemoglobin 7 this morning. No sign of bleeding. Subjective Subjective Date/Time Seen: 02/19/21 08:29 Post Op day: 8 Patient reports: no new complaints, tolerating a regular diet and afebrile Exam GI: Inspection: non-distended, incision ( Two mercedez removed periumbilical. No tracking.) and other ( Periumbilical area opened due to persistent drainage here. No infection) GI Palp: Yes Soft to palpation and Yes Tenderness to palpation present (GI) Auscultation: normal bowel sounds Objective Data Vital Signs Vital Signs: Vital Signs - 24 hr 02/18/21 09:55 02/18/21 14:00 02/18/21 20:49 Temperature 36.6 C Pulse Rate 88 77 68 Respiratory Rate 16 Blood Pressure 129/69 Pulse Oximetry 100 02/18/21 22:00 02/19/21 05:51 Temperature 36.9 C 37.0 C Pulse Rate 61 66 Respiratory Rate 20 20 Blood Pressure 133/77 119/73 Pulse Oximetry 100 100 Intake/Output Intake/Output: Intake & Output 02/16/21 02/17/21 02/18/21 02/19/21 23:59 23:59 23:59 23:59 Intake Total 2915 5175 1060 200 Output Total 1245 2275 650 300 Balance 1670 2900 410 -100 Meds/Results Medications: Active Medications Generic Name Dose Route Start Last Admin Trade Name Freq PRN Reason Stop Dose Admin Acetaminophen 650 mg 02/18/21 13:22 Acetaminophen 325 Mg Tablet PO Q4H PRN Pain 1-5 Benzocaine 1 lozenge 02/09/21 11:39 02/09/21 14:31 Benzocaine/Menthol (*Bkc) 18 Ea Lozenge PO 1 lozenge PRN PRN Administration Sore Throat Bisacodyl 10 mg 02/17/21 07:58 02/17/21 10:12 Bisacodyl 10 Mg Suppository RECTAL 10 mg QAM PRN Administration Constipation Famotidine 20 mg 02/11/21 21:00 02/18/21 20:49 Famotidine 20 Mg/2 Ml Vial IV PUSH 20 mg Q12HR BORIS Administration Heparin Sodium (Porcine) 500 units 02/07/21 10:01 Heparin Sod Flush 500 Units/5 Ml Syringe IV PUSH PRN PRN see comments below Heparin Sodium (Porcine) 5,000 units 02/07/21 21:00 02/12/21 20:21 Heparin Sodium 5,000 Units/Ml Vial SUB-Q 5,000 units Q12HR BORIS Administration Hydralazine HCl 10 mg 02/08/21 22:11 02/08/21 22:26 Hydralazine Hcl 20 Mg/Ml Vial IV PUSH 10 mg Q4H PRN Administration Blood Pressure - High Hydromorphone HCl 0.5 mg 02/18/21 13:23 02/18/21 17:00 Hydromorphone Hcl Inj (*Crx) 1 Mg/Ml Syr IV PUSH 0.5 mg Q3H PRN Administration Breakthrough Pain Dextrose 1,000 mls @ 50 mls/hr 02/14/21 11:40 Dextrose 10% IV CONT .Q20H PRN if PN is interrupted Metoprolol Tartrate 12.5 mg 02/09/21 09:00 02/18/21 20:49 Metoprolol Tartra
[2021-02-19] MEDS: FAMOTIDINE 20 MG TABLET PO ×2 (09:13→22:01)
[2021-02-19 09:14] VITALS: PULSE 72
[2021-02-19] MEDS: METOPROLOL TARTRATE 12.5 MG TABLET FEED TUBE ×2 (09:14→22:01)
--- NOTE | 2021-02-19 11:09 | PCNFU ---
Nutrition Follow-Up Complete: Altered GI function as related to SBO as evidenced by NPO Goal: Meet estimated nutritional needs Progressing towards goal. We will continue current goal. Pt current nutrition is Regular. Last recorded weight is 66 kg, up from 56.8 kg on admit. Bowel Motility:+BM reported 02/17 Labs Reviewed:BUN 28, Cr 1.9,Mg 1.5,Glu 136,Alb 1.7 Meds Noted:Dulcolax,Pepcid,Dilaudid,Lopressor,Zofran Additional Notes: Nutrition follow up. Patient on isolation precautions for VRE in urine. TPN has been discontinued and diet order has advanced to a regular diet. Oral Intake reported: 25-50% of meals. Recommend: Ensure compact BID providing an additional 220 kcals and 9 gms protein. Monitoring: Will monitor every 3 days.
[2021-02-19] MEDS: HYDROmorphone HCL INJ (*CRX) 1 MG/ML SYR 0.5 MG IV PUSH ×2 (12:15→19:52)
--- NOTE | 2021-02-19 13:51 | P.PNIM_ITS ---
Progress Note: A&P Assessment and Plan (1) Complete small bowel obstruction: Code(s): K56.601 - Complete intestinal obstruction, unspecified as to cause Status: Resolved Assessment and Plan: She reported colicky abdominal pain with progressive worsening for 3 days prior to presentation. She has a hx of several small bowel obstructions. Likely secondary to adhesions from multiple abdominal surgeries in the past vs metastatic colon cancer. CT abd/pelvis demonstrated SBO with clear transition point. She failed to improve with conservative therapy, therefore underwent adhesiolysis and enterectomy with anastomosis by Dr. Miller on 02/11/2021. She tolerated the procedure well and pain is controlled. She had a bowel movement yesterday following dulcolax suppository and Relistor. * POD #8 * GS following, recommendations appreciated * NG tube removed 02/17. Continue diet per general surgery * TPN discontinued 02/18, tolerating PO intake. * Increased po analgesics; wean IV; and antiemetics available as needed for pain (2) Metastatic colon cancer in female: Onset Date: ~2017 Code(s): C18.9 - Malignant neoplasm of colon, unspecified Status: Chronic Assessment and Plan: Diagnosed in 2015, s/p colectomy and adjuvant chemotherapy w/ FOLFOX at [facility]. S/P hyperthermic intraperitoneal chemotherapy and debulking surgery in 2018 in [place]. S/P bilateral nephrostomy tube placement August 2020 due to extrinsic compression of the ureters from large tumor burden consistent with recurrent metastatic cancer evident. She follows with Dr. Arango and receives palliative panitumumab every other week. * Continue oncology recommendations and immunotherapy (3) Acute on chronic kidney failure: Code(s): N17.9 - Acute kidney failure, unspecified; N18.9 - Chronic kidney disease, unspecified Status: Acute Assessment and Plan: Baseline Cr fluctuates. On review of labs, Cr has been between 1.6-3.8. Nephrostomy tubes present. Renal ultrasound on 02/09/2021 showed moderate right renal atrophy without evidence of hydronephrosis and nephrostomy tubes in expected position. She had decreased urine output but this appears to be slowly improving. Creatinine increased up to 2.9 and continues to improve. Cr 1.9 today. * Monitor volume status closely with strict I&O. * Continue to monitor renal function closely. Renally dose medications and avoid nephrotoxins * Consult placed to nephrology. Input is appreciated. * Dr. Teran consulted for evaluation of nephrostomy tubes which are patent and draining (4) Anemia of chronic disease: Code(s): D63.8 - Anemia in other chronic diseases classified elsewhere Status: Acute Assessment and Plan: Suspect multifactorial related to iron deficiency, malignancy, and chronic kidney disease. There is no evidence of acute bleeding. Vital signs are stable. Hemoglobin was 10.9-->7.5-->7 today * Monitor CBC daily and transfuse as needed to maintain Hb >7 (5) Congestive heart failure: Qualifiers: Heart failure chronicity: chronic Heart failure type: diastolic Qualified Code(s): I50.32 - Chronic diastolic (congestive) heart failure Code(s): I50.9 - Heart failure, unspecified Status: Chronic Assessment and Plan: Chronic, diastolic. Last echocardiogram 03/2020 shows EF 55-60%. BNP is elevated. CXR obtained to ensure no evidence of fluid overload. which showed small bilateral pleural effusions without evidence of pulmonary edema. Lungs are clear to auscultation. * Will hold off on diuresis at this time. Would cons
[2021-02-19 14:00] VITALS: BP 167/95; PULSE 75; RESP 18; TEMP 36.7; O2SAT 100
--- NOTE | 2021-02-19 14:42 | PCPTNOTE ---
Patient refused treatment this session due to c/o pain. PT will continue to follow per plan of care.
[2021-02-19] MEDS: oxyCODONE/ACETAMINOPHEN (*CRX) 5-325 MG TABLET 2 TABLET PO ×2 (15:07→22:05)
[2021-02-19 16:54] LABS: Chloride Rand Ur 74 mmol/L (32-290); Chloride/Creatinine Rand Ur 100 (38-318); Creatinine Random Urine 74 mg/dL (20-275)
[2021-02-19 20:00] VITALS: PULSE 78; RESP 20; O2SAT 100
[2021-02-19 22:00] VITALS: BP 114/76; PULSE 80; RESP 20; TEMP 36.7; O2SAT 100
[2021-02-19 22:01] VITALS: PULSE 78
[2021-02-20] MEDS: HYDROmorphone HCL INJ (*CRX) 1 MG/ML SYR 0.5 MG IV PUSH ×4 (01:02→21:38)
[2021-02-20 06:00] VITALS: BP 134/72; PULSE 61; RESP 20; TEMP 36.3; O2SAT 100
[2021-02-20] MEDS: CENTRAL LINE FLUSH 10 ML IV PUSH ×3 (06:00→21:57)
[2021-02-20 06:16] LABS: Hemoglobin 7.7 g/dL (12.0-15.0); Mean Corpuscular HGB Conc 32.1 g/dl (32-36); Mean Corpuscular Hemoglobin 29.7 pg (26-34); Mean Corpuscular Volume 92.7 fl (80-100); Mean Platelet Volume 9.7 fl (7.4-10.4); Platelet Count Result 126 k/mm3 (150-375); Red Blood Count 2.59 M/mm3 (4.2-5.4); Red Cell Distribution Width 14.8 % (11.5-14.5); White Blood Count 14.9 K/mm3 (4.5-10.0)
[2021-02-20 06:33] LABS: Albumin Level 1.8 g/dL (3.5-5.1); Anion Gap 2 mmol/L (8-16); Blood Urea Nitrogen 28 mg/dL (7-17); Calcium 7.2 mg/dL (8.4-10.2); Carbon Dioxide 22 mmol/L (22-30); Chloride 113 mmol/L (98-107); Estimated CRCL calculation 27 ml/min; Estimated Glomerular Filt Rate 33; Glucose 73 mg/dL (65-105); Potassium 4.2 mmol/L (3.4-5.0); Sodium 137 mmol/L (137-145)
[2021-02-20 08:38] VITALS: PULSE 64
[2021-02-20] MEDS: METOPROLOL TARTRATE 12.5 MG TABLET FEED TUBE ×2 (08:38→19:53)
[2021-02-20] MEDS: FAMOTIDINE 20 MG TABLET PO ×2 (08:38→19:54)
[2021-02-20] MEDS: oxyCODONE/ACETAMINOPHEN (*CRX) 5-325 MG TABLET 2 TABLET PO ×3 (09:53→19:51)
[2021-02-20 14:00] VITALS: BP 137/81; PULSE 60; RESP 18; TEMP 36.3; O2SAT 100
[2021-02-20] MEDS: levoFLOXacin 500 MG/D5W 100 ML 500 MG/100 ML BAG 100 MG IVPB (14:46)
--- NOTE | 2021-02-20 14:46 | PM.IMPN ---
Progress Note: A&P Assessment and Plan (1) Complete small bowel obstruction: Code(s): K56.601 - Complete intestinal obstruction, unspecified as to cause Status: Resolved Assessment and Plan: She reported colicky abdominal pain with progressive worsening for 3 days prior to presentation. She has a hx of several small bowel obstructions. Likely secondary to adhesions from multiple abdominal surgeries in the past vs metastatic colon cancer. CT abd/pelvis demonstrated SBO with clear transition point. She failed to improve with conservative therapy, therefore underwent adhesiolysis and enterectomy with anastomosis by Dr. Miller on 02/11/2021. She tolerated the procedure well and pain is controlled. She had a bowel movement yesterday following dulcolax suppository and Relistor. POD #8 GS following, recommendations appreciated NG tube removed 02/17. Continue diet per general surgery TPN discontinued 02/18, tolerating PO intake. Increased po analgesics; wean IV; and antiemetics available as needed for pain (2) Metastatic colon cancer in female: Onset Date: ~2017 Code(s): C18.9 - Malignant neoplasm of colon, unspecified Status: Chronic Assessment and Plan: Diagnosed in 2015, s/p colectomy and adjuvant chemotherapy w/ FOLFOX at [facility]. S/P hyperthermic intraperitoneal chemotherapy and debulking surgery in 2018 in [place]. S/P bilateral nephrostomy tube placement August 2020 due to extrinsic compression of the ureters from large tumor burden consistent with recurrent metastatic cancer evident. She follows with Dr. Arango and receives palliative panitumumab every other week. Continue oncology recommendations and immunotherapy (3) Acute on chronic kidney failure: Code(s): N17.9 - Acute kidney failure, unspecified; N18.9 - Chronic kidney disease, unspecified Status: Acute Assessment and Plan: Baseline Cr fluctuates. On review of labs, Cr has been between 1.6-3.8. Nephrostomy tubes present. Renal ultrasound on 02/09/2021 showed moderate right renal atrophy without evidence of hydronephrosis and nephrostomy tubes in expected position. She had decreased urine output but this appears to be slowly improving. Creatinine increased up to 2.9 and continues to improve. Cr 1.9 today. Monitor volume status closely with strict I&O. Continue to monitor renal function closely. Renally dose medications and avoid nephrotoxins Consult placed to nephrology. Input is appreciated. Dr. Teran consulted for evaluation of nephrostomy tubes which are patent and draining (4) Anemia of chronic disease: Code(s): D63.8 - Anemia in other chronic diseases classified elsewhere Status: Acute Assessment and Plan: Suspect multifactorial related to iron deficiency, malignancy, and chronic kidney disease. There is no evidence of acute bleeding. Vital signs are stable. Hemoglobin was 10.9-->7.5-->7 today Monitor CBC daily and transfuse as needed to maintain Hb >7 (5) Congestive heart failure: Qualifiers: Heart failure chronicity: chronic Heart failure type: diastolic Qualified Code(s): I50.32 - Chronic diastolic (congestive) heart failure Code(s): I50.9 - Heart failure, unspecified Status: Chronic Assessment and Plan: Chronic, diastolic. Last echocardiogram 03/2020 shows EF 55-60%. BNP is elevated. CXR obtained to ensure no evidence of fluid overload. which showed small bilateral pleural effusions without evidence of pulmonary edema. Lungs are clear to auscultation. Will hold off on diuresis at this time. Would consider IV albumin followed by diuresis if she developed symptoms of fluid overload nephrology recommendations appreciated Monitor intake and output Daily weights (6) Lymphedema: Code(s): I89.0 - Lymphedema, not elsewhere classified Status: Acute Assessment and Plan: Bilateral lower extremities. Appears to
--- NOTE | 2021-02-20 16:08 | PM.PNGS ---
Progress Note: A&P Assessment and Plan (1) SBO (small bowel obstruction): Code(s): K56.609 - Unspecified intestinal obstruction, unspecified as to partial versus complete obstruction Status: Resolved Assessment and Plan: wound now looks very good. Will need to continue dry gauze dressing to center of wound. I will prescribe appropriate dressing changes prior to patient's discharge and follow up as an outpatient. I discussed surgical follow-up with hospitalist yesterday. Can be discharged from a surgical standpoint at any point. (2) Metastatic colon cancer in female: Onset Date: ~2017 Code(s): C18.9 - Malignant neoplasm of colon, unspecified Status: Chronic Assessment and Plan: Hopefully will be resuming immunotherapy after discharge (3) Chronic kidney disease: Onset Date: ~03/2020 Qualifiers: Chronic kidney disease stage: stage 3 (moderate) Chronic kidney disease stage 3 subtype: stage 3b (GFR 30-44) Qualified Code(s): N18.32 - Chronic kidney disease, stage 3b Code(s): N18.9 - Chronic kidney disease, unspecified Status: Chronic Assessment and Plan: creatinine back to baseline after bout of acute kidney injury. (4) Acute on chronic anemia: Code(s): D64.9 - Anemia, unspecified Status: Acute Assessment and Plan: Low but stable. (5) Lymphedema: Code(s): I89.0 - Lymphedema, not elsewhere classified Status: Chronic Assessment and Plan: Lower extremity edema not really lymphedema but is due to pelvic recurrence of colon cancer causing venous compression as well as bilateral ureteral obstruction. Fortunately, patient has not developed colonic obstruction. Subjective Subjective Date/Time Seen: 02/20/21 16:08 Post Op day: 9 Patient reports: no new complaints, tolerating a regular diet and afebrile Exam Const: General: comfortable and no acute distress; No confusion Orientation/consciousness: patient oriented x3 and No confusion GI: Inspection: non-distended and incision ( No further drainage, periumbilical area pink and healing nicely) GI Palp: Yes Soft to palpation, Yes Tenderness to palpation present (GI) ( minimal tenderness), No Guarding due to palpation present (GI) and No Rebound tenderness present Auscultation: normal bowel sounds Neuro: General: patient oriented x3, no focal motor deficits and No confusion Psych: Affect: normal affect Insight: Good insight present (Psych) Judgement: Good judgement present (Psych) Objective Data Vital Signs Vital Signs: Vital Signs - 24 hr 02/19/21 20:00 02/19/21 22:00 02/19/21 22:01 Temperature 36.7 C Pulse Rate 78 80 78 Respiratory Rate 20 20 Blood Pressure 114/76 Pulse Oximetry 100 100 02/20/21 06:00 02/20/21 08:38 02/20/21 14:00 Temperature 36.3 C L 36.3 C L Pulse Rate 61 64 60 Respiratory Rate 20 18 Blood Pressure 134/72 137/81 Pulse Oximetry 100 100 Intake/Output Intake/Output: Intake & Output 02/17/21 02/18/21 02/19/21 02/20/21 23:59 23:59 23:59 23:59 Intake Total 5175 1060 1005 460 Output Total 2275 650 700 150 Balance 2900 410 305 310 Meds/Results Medications: Active Medications Generic Name Dose Route Start Last Admin Trade Name Freq PRN Reason Stop Dose Admin Acetaminophen 650 mg 02/18/21 13:22 Acetaminophen 325 Mg Tablet PO Q4H PRN Pain 1-5 Benzocaine 1 lozenge 02/09/21 11:39 02/09/21 14:31 Benzocaine/Menthol (*Bkc) 18 Ea Lozenge PO 1 lozenge PRN PRN Administration Sore Throat Bisacodyl 10 mg 02/17/21 07:58 02/17/21 10:12 Bisacodyl 10 Mg Suppository RECTAL 10 mg QAM PRN Administration Constipation Famotidine 20 mg 02/19/21 09:00 02/20/21 08:38 Famotidine 20 Mg Tablet PO 20 mg Q12HR BORIS Administration Heparin Sodium (Porcine) 500 units 02/07/21 10:01 Heparin Sod Flush 500 Units/5 Ml Syringe IV PUSH PRN PRN see sheri
[2021-02-20 16:51] LABS: Procalcitonin 0.3 ng/mL
--- NOTE | 2021-02-20 18:11 | PM.PNNEP ---
Progress Note: A&P Assessment and Plan (1) JOSE (acute kidney injury): Code(s): N17.9 - Acute kidney failure, unspecified Status: Acute Assessment and Plan: JOSE Moderate right renal atrophy and nephrostomy tubes bilaterally. No hydronephrosis. Urine electrolytes non pre renal. Urine eosinophils negative. etiology? - volume depletion -she appears euvolemic currently. - nephrostomy tube dysfunction - appear patent and draining - infection? Dr. dawn on the case and says this is just colonization - slow post-operative recovery? Creatinine seems to be settling at around 1.9. Looking back in the records it seems like the creatinine has not been much better than this for a long time. Will check another tomorrow (2) Stage 3b chronic kidney disease: Code(s): N18.32 - Chronic kidney disease, stage 3b Status: Chronic Assessment and Plan: baseline creatinine seems to average out around 1.6 - 2.1mg/dl Today her creatinine seems to be back to baseline at 1.9. due to 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) -- attempts at ureteral stenting failed so she ended up needing bilateral nephrostomy tubes (3) Small bowel obstruction: Onset Date: ~12/21/20 Code(s): K56.609 - Unspecified intestinal obstruction, unspecified as to partial versus complete obstruction Status: Resolved Assessment and Plan: thought to be secondary to previous surgeries and adhesions s/p adhesiolysis and enterectomy with anastomosis (on 02/11/21) On TPN now. Eating as well. I ordered some breakfast this morning. (4) Metastatic colon cancer in female: Onset Date: ~2017 Code(s): C18.9 - Malignant neoplasm of colon, unspecified Status: Chronic Assessment and Plan: follow with Hem/Onc as outpatient poor prognosis Subjective Date/time seen: 02/20/21 18:11 Interval history: Patient is feeling okay today.. She did not eat much supper because it did not taste good. No problems with nausea or vomiting. She has no shortness of breath or chest pain. Review of Systems Cardiovascular: Cardiovascular: Reports no additional cardiovascular complaints Respiratory: Respiratory: Reports no additional respiratory complaints Gastrointestinal: Gastrointestinal: Reports no additional gastrointestinal complaints Genitourinary: Genitourinary: Reports no additional female genitourinary complaints Exam Narrative: Exam Narrative: General: chronically ill appearing AA female in NAD Heart: normal S1 and S2; no rub Lungs: clear bilaterally Abdomen: soft, nontender, nondistended, positive bowel sounds Extremities: 1-2+ edema bilaterally Skin: no rash Objective Data Vital Signs Vital Signs: Vital Signs - 24 hr 02/19/21 20:00 02/19/21 22:00 02/19/21 22:01 Temperature 36.7 C Pulse Rate 78 80 78 Respiratory Rate 20 20 Blood Pressure 114/76 Pulse Oximetry 100 100 02/20/21 06:00 02/20/21 08:38 02/20/21 14:00 Temperature 36.3 C L 36.3 C L Pulse Rate 61 64 60 Respiratory Rate 20 18 Blood Pressure 134/72 137/81 Pulse Oximetry 100 100 Intake/Output Intake/Output: Intake & Output 02/17/21 02/18/21 02/19/21 02/20/21 23:59 23:59 23:59 23:59 Intake Total 5175 1060 1005 1060 Output Total 2275 650 700 450 Balance 2900 410 305 610 Meds/Results Medications: Active Medications Generic Name Dose Route Start Last Admin Trade Name Freq PRN Reason Stop Dose Admin Acetaminophen 650 mg 02/18/21 13:22 Acetaminophen 325 Mg Tablet PO Q4H PRN Pain 1-5 Benzocaine 1 lozenge 02/09/21 11:39 02/09/21 14:31 Benzocaine/Menthol (*Bkc) 18 Ea Lozenge PO 1 lozenge PRN PRN Administration Sore Throat Bisacodyl 10 mg 02/17/21 07:58 02/17/21 10:12 Bisacodyl 10 Mg Suppository RECTAL 10 mg QAM PRN Administration
[2021-02-20 19:53] VITALS: PULSE 60
[2021-02-20 20:00] VITALS: PULSE 77; RESP 16; O2SAT 100
[2021-02-20 22:00] VITALS: BP 127/76; PULSE 77; RESP 16; TEMP 36.3; O2SAT 100
[2021-02-21] VITALS (7 sets, daily range): BP systolic 111–121; BP diastolic 78–80; PULSE 72–79; RESP 16–20; TEMP 36.2–36.7; O2SAT 99–100
[2021-02-21] MEDS: oxyCODONE/ACETAMINOPHEN (*CRX) 5-325 MG TABLET 2 TABLET PO ×2 (03:00→16:11)
[2021-02-21 06:29] LABS: Hemoglobin 7.3 g/dL (12.0-15.0); Mean Corpuscular HGB Conc 31.7 g/dl (32-36); Mean Corpuscular Hemoglobin 29.4 pg (26-34); Mean Corpuscular Volume 92.7 fl (80-100); Mean Platelet Volume 9.7 fl (7.4-10.4); Platelet Count Result 151 k/mm3 (150-375); Red Blood Count 2.48 M/mm3 (4.2-5.4); White Blood Count 13.8 K/mm3 (4.5-10.0)
[2021-02-21 06:45] LABS: Albumin Level 1.8 g/dL (3.5-5.1); Anion Gap 0 mmol/L (8-16); Blood Urea Nitrogen 26 mg/dL (7-17); Calcium 7.1 mg/dL (8.4-10.2); Carbon Dioxide 23 mmol/L (22-30); Chloride 112 mmol/L (98-107); Estimated CRCL calculation 27 ml/min; Estimated Glomerular Filt Rate 33; Glucose 97 mg/dL (65-105); Phosphorus 2.9 mg/dL (2.5-4.5); Potassium 4.1 mmol/L (3.4-5.0); Sodium 135 mmol/L (137-145)
--- NOTE | 2021-02-21 09:35 | PCOTNOTE ---
Attempted to see patient this AM for skilled OT session. Patient awake, lying in bed and talking on phone upon entry. Patient refused participation with therapy this session until she receives her pain medication this morning. RN notified and aware. Will attempt to see patient a second time this date. Continue per Plan of Care.
[2021-02-21] MEDS: CENTRAL LINE FLUSH 10 ML IV PUSH ×3 (09:46→20:59)
[2021-02-21] MEDS: FAMOTIDINE 20 MG TABLET PO ×2 (09:46→20:59)
[2021-02-21] MEDS: METOPROLOL TARTRATE 12.5 MG TABLET FEED TUBE ×2 (09:50→20:59)
[2021-02-21] MEDS: HYDROmorphone HCL INJ (*CRX) 1 MG/ML SYR 0.5 MG IV PUSH ×2 (09:51→21:52)
--- NOTE | 2021-02-21 12:02 | PM.PNNEP ---
Progress Note: A&P Assessment and Plan (1) JOSE (acute kidney injury): Code(s): N17.9 - Acute kidney failure, unspecified Status: Acute Assessment and Plan: JOSE Mostly due To obstruction. This is resolved (2) Stage 3b chronic kidney disease: Code(s): N18.32 - Chronic kidney disease, stage 3b Status: Chronic Assessment and Plan: baseline creatinine seems to average out around 1.6 - 2.1mg/dl Today her creatinine seems to be back to baseline at 1.9. due to 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) -- attempts at ureteral stenting failed so she ended up needing bilateral nephrostomy tubes (3) Small bowel obstruction: Onset Date: ~12/21/20 Code(s): K56.609 - Unspecified intestinal obstruction, unspecified as to partial versus complete obstruction Status: Resolved Assessment and Plan: thought to be secondary to previous surgeries and adhesions s/p adhesiolysis and enterectomy with anastomosis (on 02/11/21) On TPN now. Eating as well. I ordered some breakfast this morning. (4) Metastatic colon cancer in female: Onset Date: ~2017 Code(s): C18.9 - Malignant neoplasm of colon, unspecified Status: Chronic Assessment and Plan: follow with Hem/Onc as outpatient poor prognosis Subjective Date/time seen: 02/21/21 12:02 Interval history: Patient is about the same no sob or cp no n/v Review of Systems Cardiovascular: Cardiovascular: Reports no additional cardiovascular complaints Respiratory: Respiratory: Reports no additional respiratory complaints Gastrointestinal: Gastrointestinal: Reports no additional gastrointestinal complaints Genitourinary: Genitourinary: Reports no additional female genitourinary complaints Exam Narrative: Exam Narrative: General: chronically ill appearing AA female in NAD Heart: normal S1 and S2; no rub Lungs: clear Abdomen: soft, nontender, nondistended, positive bowel sounds Extremities: 1-2+ edema bilaterally Skin: no rash or sq nodules Objective Data Vital Signs Vital Signs: Vital Signs - 24 hr 02/20/21 14:00 02/20/21 19:53 02/20/21 20:00 Temperature 36.3 C L Pulse Rate 60 60 77 Respiratory Rate 18 16 Blood Pressure 137/81 Pulse Oximetry 100 100 02/20/21 22:00 02/21/21 06:00 02/21/21 09:50 Temperature 36.3 C L 36.2 C L Pulse Rate 77 79 79 Respiratory Rate 16 16 Blood Pressure 127/76 121/79 Pulse Oximetry 100 100 Intake/Output Intake/Output: Intake & Output 02/18/21 02/19/21 02/20/21 02/21/21 23:59 23:59 23:59 23:59 Intake Total 1060 1005 1380 480 Output Total 650 700 450 300 Balance 410 305 930 180 Meds/Results Medications: Active Medications Generic Name Dose Route Start Last Admin Trade Name Freq PRN Reason Stop Dose Admin Acetaminophen 650 mg 02/18/21 13:22 Acetaminophen 325 Mg Tablet PO Q4H PRN Pain 1-5 Benzocaine 1 lozenge 02/09/21 11:39 02/09/21 14:31 Benzocaine/Menthol (*Bkc) 18 Ea Lozenge PO 1 lozenge PRN PRN Administration Sore Throat Bisacodyl 10 mg 02/17/21 07:58 02/17/21 10:12 Bisacodyl 10 Mg Suppository RECTAL 10 mg QAM PRN Administration Constipation Famotidine 20 mg 02/19/21 09:00 02/21/21 09:46 Famotidine 20 Mg Tablet PO 20 mg Q12HR BORIS Administration Heparin Sodium (Porcine) 500 units 02/07/21 10:01 Heparin Sod Flush 500 Units/5 Ml Syringe IV PUSH PRN PRN see comments below Heparin Sodium (Porcine) 5,000 units 02/07/21 21:00 02/12/21 20:21 Heparin Sodium 5,000 Units/Ml Vial SUB-Q 5,000 units Q12HR BORIS Administration Hydralazine HCl 10 mg 02/08/21 22:11 02/08/21 22:26 Hydralazine Hcl 20 Mg/Ml Vial IV PUSH 10 mg Q4H PRN Administration Blood Pressure - High Hydromorphone HCl 0.5 mg 02/18/21 13:23 02/21/21 09:51 Hydromorphone Hcl Inj (*Crx) 1 Mg/Ml Syr IV PUS
[2021-02-21] MEDS: levoFLOXacin 250 MG/D5W 50 ML 250 MG/50 ML BAG 50 MG IVPB (13:21)
--- NOTE | 2021-02-21 14:53 | P.PNIM_ITS ---
Progress Note: A&P Assessment and Plan (1) Complete small bowel obstruction: Code(s): K56.601 - Complete intestinal obstruction, unspecified as to cause Status: Resolved Assessment and Plan: She reported colicky abdominal pain with progressive worsening for 3 days prior to presentation. She has a hx of several small bowel obstructions. Likely secondary to adhesions from multiple abdominal surgeries in the past vs metastatic colon cancer. CT abd/pelvis demonstrated SBO with clear transition point. She failed to improve with conservative therapy, therefore underwent adhesiolysis and enterectomy with anastomosis by Dr. Miller on 02/11/2021. She tolerated the procedure well and pain is controlled. She had a bowel movement yesterday following dulcolax suppository and Relistor. * POD #10 * GS following, recommendations appreciated * NG tube removed 02/17. Continue diet per general surgery * TPN discontinued 02/18, tolerating PO intake. * Increased po analgesics; wean IV; and antiemetics available as needed for pain (2) Metastatic colon cancer in female: Onset Date: ~2017 Code(s): C18.9 - Malignant neoplasm of colon, unspecified Status: Chronic Assessment and Plan: Diagnosed in 2015, s/p colectomy and adjuvant chemotherapy w/ FOLFOX at [facility]. S/P hyperthermic intraperitoneal chemotherapy and debulking surgery in 2018 in [place]. S/P bilateral nephrostomy tube placement August 2020 due to extrinsic compression of the ureters from large tumor burden consistent with recurrent metastatic cancer evident. She follows with Dr. Arango and receives palliative panitumumab every other week. * Continue oncology recommendations and immunotherapy (3) Acute on chronic kidney failure: Code(s): N17.9 - Acute kidney failure, unspecified; N18.9 - Chronic kidney disease, unspecified Status: Acute Assessment and Plan: Baseline Cr fluctuates. On review of labs, Cr has been between 1.6-3.8. Nephrostomy tubes present. Renal ultrasound on 02/09/2021 showed moderate right renal atrophy without evidence of hydronephrosis and nephrostomy tubes in expected position. She had decreased urine output but this appears to be slowly improving. Creatinine increased up to 2.9 and continues to improve. Cr 1.9 today. * Monitor volume status closely with strict I&O. * Continue to monitor renal function closely. Renally dose medications and avoid nephrotoxins * Consult placed to nephrology. Input is appreciated. * Dr. Teran consulted for evaluation of nephrostomy tubes which are patent and draining (4) Anemia of chronic disease: Code(s): D63.8 - Anemia in other chronic diseases classified elsewhere Status: Acute Assessment and Plan: Suspect multifactorial related to iron deficiency, malignancy, and chronic kidney disease. There is no evidence of acute bleeding. Vital signs are stable. Hemoglobin was 10.9-->7.5-->7 today * Monitor CBC daily and transfuse as needed to maintain Hb >7 (5) Congestive heart failure: Qualifiers: Heart failure type: diastolic Heart failure chronicity: chronic Qualified Code(s): I50.32 - Chronic diastolic (congestive) heart failure Code(s): I50.9 - Heart failure, unspecified Status: Chronic Assessment and Plan: Chronic, diastolic. Last echocardiogram 03/2020 shows EF 55-60%. BNP is elevated. CXR obtained to ensure no evidence of fluid overload. which showed small bilateral pleural effusions without evidence of pulmonary edema. Lungs are clear to auscultation. * Will hold off on diuresis at this time. Would con
[2021-02-22 05:45] VITALS: BP 132/75; PULSE 73; RESP 20; TEMP 36.6; O2SAT 100
[2021-02-22 09:08] VITALS: PULSE 73
[2021-02-22] MEDS: METOPROLOL TARTRATE 12.5 MG TABLET FEED TUBE ×2 (09:08→19:58)
[2021-02-22] MEDS: FAMOTIDINE 20 MG TABLET PO ×2 (09:08→19:58)
[2021-02-22] MEDS: HYDROmorphone HCL INJ (*CRX) 1 MG/ML SYR 0.5 MG IV PUSH ×2 (09:22→19:57)
--- NOTE | 2021-02-22 10:17 | PM.PNNEP ---
Progress Note: A&P Assessment and Plan (1) JOSE (acute kidney injury): Code(s): N17.9 - Acute kidney failure, unspecified Status: Acute Assessment and Plan: JOSE Mostly due to obstruction. This is resolved (2) Stage 3b chronic kidney disease: Code(s): N18.32 - Chronic kidney disease, stage 3b Status: Chronic Assessment and Plan: baseline creatinine seems to average out around 1.6 - 2.1mg/dl at baseline. due to 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) -- attempts at ureteral stenting failed so she ended up needing bilateral nephrostomy tubes (3) Small bowel obstruction: Onset Date: ~12/21/20 Code(s): K56.609 - Unspecified intestinal obstruction, unspecified as to partial versus complete obstruction Status: Resolved Assessment and Plan: thought to be secondary to previous surgeries and adhesions s/p adhesiolysis and enterectomy with anastomosis (on 02/11/21) Eating her diet. (4) Metastatic colon cancer in female: Onset Date: ~2017 Code(s): C18.9 - Malignant neoplasm of colon, unspecified Status: Chronic Assessment and Plan: follow with Hem/Onc as outpatient poor prognosis Subjective Date/time seen: 02/22/21 10:17 Interval history: Patient Feels okay. no sob or cp no n/v Eager for discharge to rehab today. Review of Systems Cardiovascular: Cardiovascular: Reports no additional cardiovascular complaints Respiratory: Respiratory: Reports no additional respiratory complaints Gastrointestinal: Gastrointestinal: Reports no additional gastrointestinal complaints Genitourinary: Genitourinary: Reports no additional female genitourinary complaints Exam Narrative: Exam Narrative: General: chronically ill appearing AA female in NAD Heart: normal S1 and S2; no rub or gallop Lungs: clear Bilaterally Abdomen: soft, nontender, nondistended, positive bowel sounds Extremities: 1-2+ edema bilaterally Skin: no rash or sq nodules Objective Data Vital Signs Vital Signs: Vital Signs - 24 hr 02/21/21 14:00 02/21/21 19:48 02/21/21 20:00 Temperature 36.5 C Pulse Rate 73 73 Respiratory Rate 20 20 Blood Pressure 111/78 Pulse Oximetry 100 99 100 02/21/21 20:59 02/21/21 22:00 02/22/21 05:45 Temperature 36.7 C 36.6 C Pulse Rate 73 72 73 Respiratory Rate 20 20 Blood Pressure 115/80 132/75 Pulse Oximetry 100 100 02/22/21 09:08 Temperature Pulse Rate 73 Respiratory Rate Blood Pressure Pulse Oximetry Intake/Output Intake/Output: Intake & Output 02/19/21 02/20/21 02/21/21 02/22/21 23:59 23:59 23:59 23:59 Intake Total 1005 1380 1250 600 Output Total 700 450 575 275 Balance 305 930 675 325 Meds/Results Medications: Active Medications Generic Name Dose Route Start Last Admin Trade Name Freq PRN Reason Stop Dose Admin Acetaminophen 650 mg 02/18/21 13:22 Acetaminophen 325 Mg Tablet PO Q4H PRN Pain 1-5 Benzocaine 1 lozenge 02/09/21 11:39 02/09/21 14:31 Benzocaine/Menthol (*Bkc) 18 Ea Lozenge PO 1 lozenge PRN PRN Administration Sore Throat Bisacodyl 10 mg 02/17/21 07:58 02/17/21 10:12 Bisacodyl 10 Mg Suppository RECTAL 10 mg QAM PRN Administration Constipation Famotidine 20 mg 02/19/21 09:00 02/22/21 09:08 Famotidine 20 Mg Tablet PO 20 mg Q12HR BORIS Administration Heparin Sodium (Porcine) 500 units 02/07/21 10:01 Heparin Sod Flush 500 Units/5 Ml Syringe IV PUSH PRN PRN see comments below Heparin Sodium (Porcine) 5,000 units 02/07/21 21:00 02/12/21 20:21 Heparin Sodium 5,000 Units/Ml Vial SUB-Q 5,000 units Q12HR BORIS Administration Hydralazine HCl 10 mg 02/08/21 22:11 02/08/21 22:26 Hydralazine Hcl 20 Mg/Ml Vial IV PUSH 10 mg Q4H PRN Administration Blood Pressure - High Hydromorphone HCl 0.5 mg 02/18/21 13:23 02/22
--- NOTE | 2021-02-22 10:31 | PM.PNGS ---
Progress Note: A&P Assessment and Plan (1) SBO (small bowel obstruction): Code(s): K56.609 - Unspecified intestinal obstruction, unspecified as to partial versus complete obstruction Status: Resolved Assessment and Plan: Wound healing well. Will change to Silver Gel dressings daily only to the open central area of the wound. Apply gauze and minimal tape. Okay to bathe and shower. No surgical follow-up necessary unless problems. Okay to discharge from my standpoint. (2) Metastatic colon cancer in female: Onset Date: ~2017 Code(s): C18.9 - Malignant neoplasm of colon, unspecified Status: Chronic Assessment and Plan: Continue chronic Cancer Care and its comorbidities. No need for surgical follow-up. Subjective Subjective Date/Time Seen: 02/22/21 10:31 Post Op day: 11 Patient reports: no new complaints and tolerating a regular diet Exam GI: Inspection: non-distended and incision ( Looks good, rest of mercedez removed. Open area pink and healing.) GI Palp: Yes Soft to palpation and Yes Tenderness to palpation present (GI) Auscultation: normal bowel sounds Objective Data Vital Signs Vital Signs: Vital Signs - 24 hr 02/21/21 14:00 02/21/21 19:48 02/21/21 20:00 Temperature 36.5 C Pulse Rate 73 73 Respiratory Rate 20 20 Blood Pressure 111/78 Pulse Oximetry 100 99 100 02/21/21 20:59 02/21/21 22:00 02/22/21 05:45 Temperature 36.7 C 36.6 C Pulse Rate 73 72 73 Respiratory Rate 20 20 Blood Pressure 115/80 132/75 Pulse Oximetry 100 100 02/22/21 09:08 Temperature Pulse Rate 73 Respiratory Rate Blood Pressure Pulse Oximetry Intake/Output Intake/Output: Intake & Output 02/19/21 02/20/21 02/21/21 02/22/21 23:59 23:59 23:59 23:59 Intake Total 1005 1380 1250 600 Output Total 700 450 575 275 Balance 305 930 675 325 Meds/Results Medications: Active Medications Generic Name Dose Route Start Last Admin Trade Name Freq PRN Reason Stop Dose Admin Acetaminophen 650 mg 02/18/21 13:22 Acetaminophen 325 Mg Tablet PO Q4H PRN Pain 1-5 Benzocaine 1 lozenge 02/09/21 11:39 02/09/21 14:31 Benzocaine/Menthol (*Bkc) 18 Ea Lozenge PO 1 lozenge PRN PRN Administration Sore Throat Bisacodyl 10 mg 02/17/21 07:58 02/17/21 10:12 Bisacodyl 10 Mg Suppository RECTAL 10 mg QAM PRN Administration Constipation Famotidine 20 mg 02/19/21 09:00 02/22/21 09:08 Famotidine 20 Mg Tablet PO 20 mg Q12HR BORIS Administration Heparin Sodium (Porcine) 500 units 02/07/21 10:01 Heparin Sod Flush 500 Units/5 Ml Syringe IV PUSH PRN PRN see comments below Heparin Sodium (Porcine) 5,000 units 02/07/21 21:00 02/12/21 20:21 Heparin Sodium 5,000 Units/Ml Vial SUB-Q 5,000 units Q12HR BORIS Administration Hydralazine HCl 10 mg 02/08/21 22:11 02/08/21 22:26 Hydralazine Hcl 20 Mg/Ml Vial IV PUSH 10 mg Q4H PRN Administration Blood Pressure - High Hydromorphone HCl 0.5 mg 02/18/21 13:23 02/22/21 09:22 Hydromorphone Hcl Inj (*Crx) 1 Mg/Ml Syr IV PUSH 0.5 mg Q3H PRN Administration Breakthrough Pain Dextrose 1,000 mls @ 50 mls/hr 02/14/21 11:40 Dextrose 10% IV CONT .Q20H PRN if PN is interrupted Vancomycin HCl 1,000 mg in 250 mls @ 250 mls/hr 02/20/21 16:00 02/22/21 06:10 Vancomycin 1,000 Mg/D5w 250 Ml 14.0845 mg/kg (1000 mg) Infused IVPB Infusion Q36H BORIS Levofloxacin/Dextrose 250 mg in 50 mls @ 50 mls/hr 02/21/21 12:00 02/21/21 14:20 Levaquin 250 Mg/D5w 50 Ml IVPB Infused NOON BORIS Infusion Cefepime HCl 2 gm in 50 mls @ 100 mls/hr 02/20/21 15:00 02/21/21 15:35 Maxipime 2 Gm/D5w 50 Ml IVPB Infused Q24H BORIS Infusion Metoprolol Tartrate 12.5 mg 02/09/21 09:00 02/22/21 09:08 Metoprolol Tartrate 12.5 Mg Tablet FEED TUBE 12.5 mg Q12HR BORIS Administration Miconazole Nitrate 1 applic 02/07/21 09:00 02/22/21 09:0
--- NOTE | 2021-02-22 10:56 | PCNFU ---
Nutrition Follow-Up Complete: Altered GI function as related to SBO as evidenced by NPO Goal: Meet estimated nutritional needs Limited progress towards goal. We will continue current goal. Pt current nutrition is Regular. Last recorded weight is 69 kg, up from 56.8 kg on admit. Bowel Motility:+BM reported Labs Reviewed:Cr 1.9,BUN 26,Na 135,Hct 23.0,Hgb 7.3 Meds Noted:Levaquin,Zofran,Dulcolax,Pepcid,Dilaudid,Lopressor,Vancomycin Additional Notes:Patient seen today for nutrition follow up. Patient ordered oatmeal,clemens and sausage. Ate 25% of tray-, no liquids. Ensure compact removed from diet orders, patient states she is lactose intolerant. Discussed with nursing, that the ensure is suitable for lactose inertance. PO intake is encouraged. Monitoring: Will monitor every 5 days.
[2021-02-22 11:13] LABS: Hematocrit 22.1 % (37.0-47.0); Hemoglobin 7.1 g/dL (12.0-15.0); Mean Corpuscular HGB Conc 32.1 g/dl (32-36); Mean Corpuscular Hemoglobin 29.6 pg (26-34); Mean Corpuscular Volume 92.1 fl (80-100); Mean Platelet Volume 9.8 fl (7.4-10.4); Platelet Count Result 193 k/mm3 (150-375); Red Cell Distribution Width 15.1 % (11.5-14.5); White Blood Count 14.3 K/mm3 (4.5-10.0)
[2021-02-22 11:25] LABS: Anion Gap 2 mmol/L (8-16); Blood Urea Nitrogen 27 mg/dL (7-17); Calcium 7.4 mg/dL (8.4-10.2); Carbon Dioxide 23 mmol/L (22-30); Chloride 110 mmol/L (98-107); Estimated CRCL calculation 26 ml/min; Estimated Glomerular Filt Rate 31; Glucose 80 mg/dL (65-105); Potassium 4.1 mmol/L (3.4-5.0); Sodium 135 mmol/L (137-145)
--- NOTE | 2021-02-22 11:45 | PCOTNOTE ---
Attempted to see patient 2x this AM, first attempt with patient stating she just got pain pill and was experiencing too much pain and to wait until after it kicked in and the second attempt patient was on the phone and stated to come back later . Will attempt for a third time after lunch. Continue per Plan of Care.
[2021-02-22] MEDS: levoFLOXacin 250 MG/D5W 50 ML 250 MG/50 ML BAG 50 MG IVPB (12:56)
--- NOTE | 2021-02-22 13:04 | PCOTNOTE ---
Attempted to see patient for a third time this date. Patient was awake and seated in recliner at bedside upon entry. Patient refused participation in therapy multiple times, declining completion of ADL tasks, functional mobility and Duran UE exercises at this time due to increased pulling type of pain (8/10) in the abdomen at this time. RN aware. Will continue per Plan of Care.
[2021-02-22 14:00] VITALS: BP 114/80; PULSE 88; RESP 18; TEMP 36.9; O2SAT 100
--- NOTE | 2021-02-22 14:21 | PM.IMPN ---
Progress Note: A&P Assessment and Plan (1) Complete small bowel obstruction: Code(s): K56.601 - Complete intestinal obstruction, unspecified as to cause Status: Resolved Assessment and Plan: She reported colicky abdominal pain with progressive worsening for 3 days prior to presentation. She has a hx of several small bowel obstructions. Likely secondary to adhesions from multiple abdominal surgeries in the past vs metastatic colon cancer. CT abd/pelvis demonstrated SBO with clear transition point. She failed to improve with conservative therapy, therefore underwent adhesiolysis and enterectomy with anastomosis by Dr. Miller on 02/11/2021. She tolerated the procedure well and pain is controlled. She had a bowel movement yesterday following dulcolax suppository and Relistor. POD #10 GS following, recommendations appreciated NG tube removed 02/17. Continue diet per general surgery TPN discontinued 02/18, tolerating PO intake. Increased po analgesics; wean IV; and antiemetics available as needed for pain (2) Metastatic colon cancer in female: Onset Date: ~2017 Code(s): C18.9 - Malignant neoplasm of colon, unspecified Status: Chronic Assessment and Plan: Diagnosed in 2015, s/p colectomy and adjuvant chemotherapy w/ FOLFOX at [facility]. S/P hyperthermic intraperitoneal chemotherapy and debulking surgery in 2018 in [place]. S/P bilateral nephrostomy tube placement August 2020 due to extrinsic compression of the ureters from large tumor burden consistent with recurrent metastatic cancer evident. She follows with Dr. Arango and receives palliative panitumumab every other week. Continue oncology recommendations and immunotherapy (3) Acute on chronic kidney failure: Code(s): N17.9 - Acute kidney failure, unspecified; N18.9 - Chronic kidney disease, unspecified Status: Acute Assessment and Plan: Baseline Cr fluctuates. On review of labs, Cr has been between 1.6-3.8. Nephrostomy tubes present. Renal ultrasound on 02/09/2021 showed moderate right renal atrophy without evidence of hydronephrosis and nephrostomy tubes in expected position. She had decreased urine output but this appears to be slowly improving. Creatinine increased up to 2.9 and continues to improve. Cr 1.9 today. Monitor volume status closely with strict I&O. Continue to monitor renal function closely. Renally dose medications and avoid nephrotoxins Consult placed to nephrology. Input is appreciated. Dr. Teran consulted for evaluation of nephrostomy tubes which are patent and draining (4) Anemia of chronic disease: Code(s): D63.8 - Anemia in other chronic diseases classified elsewhere Status: Acute Assessment and Plan: Suspect multifactorial related to iron deficiency, malignancy, and chronic kidney disease. There is no evidence of acute bleeding. Vital signs are stable. Hemoglobin was 10.9-->7.5-->7 today Monitor CBC daily and transfuse as needed to maintain Hb >7 (5) Congestive heart failure: Qualifiers: Heart failure type: diastolic Heart failure chronicity: chronic Qualified Code(s): I50.32 - Chronic diastolic (congestive) heart failure Code(s): I50.9 - Heart failure, unspecified Status: Chronic Assessment and Plan: Chronic, diastolic. Last echocardiogram 03/2020 shows EF 55-60%. BNP is elevated. CXR obtained to ensure no evidence of fluid overload. which showed small bilateral pleural effusions without evidence of pulmonary edema. Lungs are clear to auscultation. Will hold off on diuresis at this time. Would consider IV albumin followed by diuresis if she developed symptoms of fluid overload nephrology recommendations appreciated Monitor intake and output Daily weights (6) Lymphedema: Code(s): I89.0 - Lymphedema, not elsewhere classified Status: Chronic Assessment and Plan: Bilateral lower extremities. Appears
--- NOTE | 2021-02-22 14:44 | PCPTNOTE ---
The PT treatment was unable to be completed today due to patient refusal. Two attempts were made. Will continue per Plan of Care frequency and duration.
[2021-02-22] MEDS: oxyCODONE/ACETAMINOPHEN (*CRX) 5-325 MG TABLET 2 TABLET PO ×2 (15:15→23:49)
[2021-02-22 16:20] LABS: Pneumococcal Antigen Urine Not Detected (Not Detected)
[2021-02-22 19:58] VITALS: PULSE 74
[2021-02-22] MEDS: CENTRAL LINE FLUSH 10 ML IV PUSH (19:58)
[2021-02-22 21:02] LABS: SARS-CoV-2 RNA PCR Negative
[2021-02-22 22:00] VITALS: BP 118/76; PULSE 80; RESP 16; TEMP 36.9; O2SAT 100
[2021-02-23] VITALS (10 sets, daily range): BP systolic 127–149; BP diastolic 72–95; PULSE 64–104; RESP 16–18; TEMP 36.3–37; O2SAT 99–100
[2021-02-23] MEDS: oxyCODONE/ACETAMINOPHEN (*CRX) 5-325 MG TABLET 2 TABLET PO ×3 (04:23→20:48)
[2021-02-23] MEDS: SILVERGEL (ELTA) 45 ML 1 APPLIC TOPICAL (06:38)
[2021-02-23] MEDS: METOPROLOL TARTRATE 12.5 MG TABLET FEED TUBE ×2 (08:41→20:47)
[2021-02-23] MEDS: FAMOTIDINE 20 MG TABLET PO ×2 (08:41→20:47)
[2021-02-23 10:07] LABS: Basophils Percent Auto 0.2 % (0.2-1.2); Eosinophils Percent Auto 0.2 % (0-4.4); Immature Granulocyte Absolute 0.05 K/mm3 (0.00-0.031); Immature Granulocyte Percent A 0.4 % (0-0.5); Lymphocytes Absolute Auto 0.53 K/mm3 (0.9-3.2); Lymphocytes Percent Auto 4.5 % (18.3-44.2); Mean Corpuscular HGB Conc 31.5 g/dl (32-36); Mean Corpuscular Hemoglobin 29.1 pg (26-34); Mean Corpuscular Volume 92.3 fl (80-100); Mean Platelet Volume 9.4 fl (7.4-10.4); Monocytes Absolute Auto 0.5 K/mm3 (0.1-0.6); Monocytes Percent Auto 4.1 % (2.6-8.5); Neutrophils Absolute Auto 10.8 K/mm3 (1.3-6.7); Neutrophils Percent Auto 90.6 % (45.5-73.1); Platelet Count Result 191 k/mm3 (150-375); Red Cell Distribution Width 15.4 % (11.5-14.5); White Blood Count 11.9 K/mm3 (4.5-10.0)
[2021-02-23 10:19] LABS: Anion Gap 4 mmol/L (8-16); Blood Urea Nitrogen 28 mg/dL (7-17); Calcium 7.1 mg/dL (8.4-10.2); Carbon Dioxide 19 mmol/L (22-30); Chloride 112 mmol/L (98-107); Estimated CRCL calculation 26 ml/min; Estimated Glomerular Filt Rate 31; Glucose 103 mg/dL (65-105); Potassium 3.9 mmol/L (3.4-5.0); Sodium 135 mmol/L (137-145)
[2021-02-23 10:24] LABS: Hematocrit 20.3 % (37.0-47.0); Hemoglobin 6.4 g/dL (12.0-15.0)
[2021-02-23 10:57] LABS: Anisocytosis 1+ (NORMAL); Platelet Estimate Adequate (Adequate)
[2021-02-23 10:58] LABS: Hypochromasia 2+ (NORMAL); Ovalocytes 1+ (NORMAL)
--- NOTE | 2021-02-23 11:15 | PM.IMPN ---
Progress Note: A&P Assessment and Plan (1) Complete small bowel obstruction: Code(s): K56.601 - Complete intestinal obstruction, unspecified as to cause Status: Resolved Assessment and Plan: She reported colicky abdominal pain with progressive worsening for 3 days prior to presentation. She has a hx of several small bowel obstructions. Likely secondary to adhesions from multiple abdominal surgeries in the past vs metastatic colon cancer. CT abd/pelvis demonstrated SBO with clear transition point. She failed to improve with conservative therapy, therefore underwent adhesiolysis and enterectomy with anastomosis by Dr. Miller on 02/11/2021. She tolerated the procedure well and pain is controlled. She had a bowel movement yesterday following dulcolax suppository and Relistor. POD #11 GS following, recommendations appreciated NG tube removed 02/17. Continue diet per general surgery TPN discontinued 02/18, tolerating PO intake. Increased po analgesics; wean IV; and antiemetics available as needed for pain (2) Metastatic colon cancer in female: Onset Date: ~2017 Code(s): C18.9 - Malignant neoplasm of colon, unspecified Status: Chronic Assessment and Plan: Diagnosed in 2015, s/p colectomy and adjuvant chemotherapy w/ FOLFOX at [facility]. S/P hyperthermic intraperitoneal chemotherapy and debulking surgery in 2018 in [place]. S/P bilateral nephrostomy tube placement August 2020 due to extrinsic compression of the ureters from large tumor burden consistent with recurrent metastatic cancer evident. She follows with Dr. Arango and receives palliative panitumumab every other week. Continue oncology recommendations and immunotherapy (3) Acute on chronic kidney failure: Code(s): N17.9 - Acute kidney failure, unspecified; N18.9 - Chronic kidney disease, unspecified Status: Acute Assessment and Plan: Baseline Cr fluctuates. On review of labs, Cr has been between 1.6-3.8. Nephrostomy tubes present. Renal ultrasound on 02/09/2021 showed moderate right renal atrophy without evidence of hydronephrosis and nephrostomy tubes in expected position. She had decreased urine output but this appears to be slowly improving. Creatinine increased up to 2.9 and continues to improve. Cr 1.9 today. Monitor volume status closely with strict I&O. Continue to monitor renal function closely. Renally dose medications and avoid nephrotoxins Consult placed to nephrology. Input is appreciated. Dr. Teran consulted for evaluation of nephrostomy tubes which are patent and draining (4) Anemia of chronic disease: Code(s): D63.8 - Anemia in other chronic diseases classified elsewhere Status: Acute Assessment and Plan: Suspect multifactorial related to iron deficiency, malignancy, and chronic kidney disease. There is no evidence of acute bleeding. Vital signs are stable. Hemoglobin was 10.9-->7.5-->7 today Monitor CBC daily and transfuse as needed to maintain Hb >7 hgb 6.4 Transfuse 1 unit PRBCS (5) Congestive heart failure: Qualifiers: Heart failure chronicity: chronic Heart failure type: diastolic Qualified Code(s): I50.32 - Chronic diastolic (congestive) heart failure Code(s): I50.9 - Heart failure, unspecified Status: Chronic Assessment and Plan: Chronic, diastolic. Last echocardiogram 03/2020 shows EF 55-60%. BNP is elevated. CXR obtained to ensure no evidence of fluid overload. which showed small bilateral pleural effusions without evidence of pulmonary edema. Lungs are clear to auscultation. Will hold off on diuresis at this time. Would consider IV albumin followed by diuresis if she developed symptoms of fluid overload nephrology recommendations appreciated Monitor intake and output Daily weights (6) Lymphedema: Code(s): I89.0 - Lymphedema, not elsewhere classified Status: Chronic Assessment and Plan: Bi
[2021-02-23] MEDS: levoFLOXacin 250 MG/D5W 50 ML 250 MG/50 ML BAG 50 MG IVPB (12:45)
[2021-02-23] MEDS: CENTRAL LINE FLUSH 10 ML IV PUSH ×2 (15:04→20:48)
[2021-02-23 15:36] LABS: Vancomycin Trough 10.9 ug/mL (10.0-20.0)
[2021-02-23] MEDS: ACETAMINOPHEN 325 MG TABLET 650 MG PO (18:00)
[2021-02-23] MEDS: diphenhydrAMINE HCl INJ 50 MG/ML VIAL IV PUSH (18:12)
[2021-02-23] MEDS: SODIUM CHLORIDE 0.9% IV 250 ML 30 ML IV CONT (18:13)
[2021-02-23] MEDS: TUBING, BLOOD PLUM PUMP TUBING 1 EACH XX (18:13)
[2021-02-23 23:21] LABS: Hemoglobin 8.5 g/dL (12.0-15.0)
[2021-02-24] MEDS: oxyCODONE/ACETAMINOPHEN (*CRX) 5-325 MG TABLET 2 TABLET PO ×5 (01:24→20:27)
[2021-02-24 06:00] VITALS: BP 133/98; PULSE 82; RESP 18; TEMP 36.3; O2SAT 100
[2021-02-24] MEDS: CENTRAL LINE FLUSH 10 ML IV PUSH ×3 (06:30→20:28)
[2021-02-24 08:00] VITALS: PULSE 88; RESP 18; O2SAT 100
[2021-02-24 09:52] VITALS: PULSE 88
[2021-02-24] MEDS: FAMOTIDINE 20 MG TABLET PO ×2 (09:52→20:28)
[2021-02-24] MEDS: METOPROLOL TARTRATE 12.5 MG TABLET FEED TUBE ×2 (09:52→20:28)
[2021-02-24] MEDS: SILVERGEL (ELTA) 45 ML 1 APPLIC TOPICAL (09:53)
[2021-02-24 10:18] LABS: Basophils Percent Auto 0.2 % (0.2-1.2); Eosinophils Percent Auto 0.2 % (0-4.4); Hematocrit 25.9 % (37.0-47.0); Hemoglobin 8.5 g/dL (12.0-15.0); Immature Granulocyte Absolute 0.09 K/mm3 (0.00-0.031); Immature Granulocyte Percent A 0.8 % (0-0.5); Lymphocytes Absolute Auto 0.66 K/mm3 (0.9-3.2); Lymphocytes Percent Auto 5.7 % (18.3-44.2); Mean Corpuscular HGB Conc 32.8 g/dl (32-36); Mean Corpuscular Volume 88.4 fl (80-100); Mean Platelet Volume 9.4 fl (7.4-10.4); Monocytes Absolute Auto 0.7 K/mm3 (0.1-0.6); Monocytes Percent Auto 6.1 % (2.6-8.5); Neutrophils Absolute Auto 10.2 K/mm3 (1.3-6.7); Platelet Count Result 171 k/mm3 (150-375); Red Blood Count 2.93 M/mm3 (4.2-5.4); Red Cell Distribution Width 15.9 % (11.5-14.5); White Blood Count 11.7 K/mm3 (4.5-10.0)
[2021-02-24 10:28] LABS: Anion Gap 2 mmol/L (8-16); Blood Urea Nitrogen 29 mg/dL (7-17); Calcium 7.4 mg/dL (8.4-10.2); Carbon Dioxide 21 mmol/L (22-30); Chloride 114 mmol/L (98-107); Estimated CRCL calculation 24 ml/min; Estimated Glomerular Filt Rate 29; Glucose 80 mg/dL (65-105); Potassium 3.8 mmol/L (3.4-5.0); Sodium 137 mmol/L (137-145)
--- NOTE | 2021-02-24 13:14 | P.PNIM_ITS ---
Progress Note: A&P Assessment and Plan (1) Complete small bowel obstruction: Code(s): K56.601 - Complete intestinal obstruction, unspecified as to cause Status: Resolved Assessment and Plan: She reported colicky abdominal pain with progressive worsening for 3 days prior to presentation. She has a hx of several small bowel obstructions. Likely secondary to adhesions from multiple abdominal surgeries in the past vs metastatic colon cancer. CT abd/pelvis demonstrated SBO with clear transition point. She failed to improve with conservative therapy, therefore underwent adhesiolysis and enterectomy with anastomosis by Dr. Miller on 02/11/2021. She tolerated the procedure well and pain is controlled. She had a bowel movement yesterday following dulcolax suppository and Relistor. * POD #11 * GS following, recommendations appreciated * NG tube removed 02/17. Continue diet per general surgery * TPN discontinued 02/18, tolerating PO intake. * Increased po analgesics; wean IV; and antiemetics available as needed for pain (2) Metastatic colon cancer in female: Onset Date: ~2017 Code(s): C18.9 - Malignant neoplasm of colon, unspecified Status: Chronic Assessment and Plan: Diagnosed in 2015, s/p colectomy and adjuvant chemotherapy w/ FOLFOX at [facility]. S/P hyperthermic intraperitoneal chemotherapy and debulking surgery in 2018 in [place]. S/P bilateral nephrostomy tube placement August 2020 due to extrinsic compression of the ureters from large tumor burden consistent with recurrent metastatic cancer evident. She follows with Dr. Arango and receives palliative panitumumab every other week. * Continue oncology recommendations and immunotherapy (3) Acute on chronic kidney failure: Code(s): N17.9 - Acute kidney failure, unspecified; N18.9 - Chronic kidney disease, unspecified Status: Acute Assessment and Plan: Baseline Cr fluctuates. On review of labs, Cr has been between 1.6-3.8. Nephrostomy tubes present. Renal ultrasound on 02/09/2021 showed moderate right renal atrophy without evidence of hydronephrosis and nephrostomy tubes in expected position. She had decreased urine output but this appears to be slowly improving. Creatinine increased up to 2.9 and continues to improve. Cr 1.9 today. * Monitor volume status closely with strict I&O. * Continue to monitor renal function closely. Renally dose medications and avoid nephrotoxins * Consult placed to nephrology. Input is appreciated. * Dr. Teran consulted for evaluation of nephrostomy tubes which are patent and draining (4) Anemia of chronic disease: Code(s): D63.8 - Anemia in other chronic diseases classified elsewhere Status: Acute Assessment and Plan: Suspect multifactorial related to iron deficiency, malignancy, and chronic kidney disease. There is no evidence of acute bleeding. Vital signs are stable. Hemoglobin was 10.9-->7.5-->7 today * Monitor CBC daily and transfuse as needed to maintain Hb >7 * hgb 6.4 * Transfuse 1 unit PRBCS (5) Congestive heart failure: Qualifiers: Heart failure chronicity: chronic Heart failure type: diastolic Qualified Code(s): I50.32 - Chronic diastolic (congestive) heart failure Code(s): I50.9 - Heart failure, unspecified Status: Chronic Assessment and Plan: Chronic, diastolic. Last echocardiogram 03/2020 shows EF 55-60%. BNP is elevated. CXR obtained to ensure no evidence of fluid overload. which showed small bilateral pleural effusions without evidence of pulmonary edema. Lungs a re clear to auscultation. * Will
[2021-02-24 13:46] VITALS: BP 126/73; PULSE 69; RESP 18; TEMP 36.3; O2SAT 100
[2021-02-24 19:07] LABS: Platelet Ab,Indirect (IgA) NEGATIVE (NEGATIVE); Platelet Ab,Indirect (IgG) POSITIVE (NEGATIVE); Platelet Ab,Indirect (IgM) NEGATIVE (NEGATIVE)
[2021-02-24 20:28] VITALS: PULSE 71
[2021-02-24 22:00] VITALS: BP 121/71; PULSE 75; RESP 18; TEMP 36.3; O2SAT 100
[2021-02-25] MEDS: CENTRAL LINE FLUSH 20 ML IV PUSH (05:29)
[2021-02-25] MEDS: CENTRAL LINE FLUSH 10 ML IV PUSH ×2 (05:29→14:30)
[2021-02-25 05:42] LABS: Basophils Percent Auto 0.1 % (0.2-1.2); Eosinophils Percent Auto 0.3 % (0-4.4); Hematocrit 23.1 % (37.0-47.0); Hemoglobin 7.8 g/dL (12.0-15.0); Immature Granulocyte Absolute 0.07 K/mm3 (0.00-0.031); Immature Granulocyte Percent A 0.6 % (0-0.5); Lymphocytes Absolute Auto 0.66 K/mm3 (0.9-3.2); Lymphocytes Percent Auto 6.1 % (18.3-44.2); Mean Corpuscular HGB Conc 33.8 g/dl (32-36); Mean Corpuscular Hemoglobin 28.9 pg (26-34); Mean Corpuscular Volume 85.6 fl (80-100); Mean Platelet Volume 9.3 fl (7.4-10.4); Monocytes Absolute Auto 0.6 K/mm3 (0.1-0.6); Monocytes Percent Auto 5.6 % (2.6-8.5); Neutrophils Absolute Auto 9.4 K/mm3 (1.3-6.7); Neutrophils Percent Auto 87.3 % (45.5-73.1); Platelet Count Result 146 k/mm3 (150-375); Red Cell Distribution Width 16.1 % (11.5-14.5); White Blood Count 10.8 K/mm3 (4.5-10.0)
[2021-02-25 05:50] LABS: Anion Gap 4 mmol/L (8-16); Blood Urea Nitrogen 31 mg/dL (7-17); Calcium 7.4 mg/dL (8.4-10.2); Carbon Dioxide 20 mmol/L (22-30); Chloride 113 mmol/L (98-107); Estimated CRCL calculation 24 ml/min; Estimated Glomerular Filt Rate 29; Glucose 72 mg/dL (65-105); Potassium 3.7 mmol/L (3.4-5.0); Sodium 137 mmol/L (137-145)
[2021-02-25 06:00] VITALS: BP 113/76; PULSE 81; RESP 20; TEMP 36.4; O2SAT 100
--- NOTE | 2021-02-25 08:44 | PCOTNOTE ---
Attempted Re-Evaluation for Occupational Therapy, patient reports I want to finish eating . educated patient on benefits of sitting up in chair to eat, patient declined at this time. will attempt re-evaluation at later time.
[2021-02-25 09:15] VITALS: PULSE 70
[2021-02-25] MEDS: METOPROLOL TARTRATE 12.5 MG TABLET FEED TUBE ×2 (09:15→21:20)
[2021-02-25] MEDS: FAMOTIDINE 20 MG TABLET PO ×2 (09:16→21:20)
[2021-02-25] MEDS: SILVERGEL (ELTA) 45 ML 1 APPLIC TOPICAL (09:17)
--- NOTE | 2021-02-25 11:33 | PCNFU ---
Nutrition Follow-Up Complete: Altered GI function as related to SBO as evidenced by NPO Goal: Meet estimated nutritional needs Progressing towards goal. We will continue current goal. Pt current nutrition is Regular. Last recorded weight is 66.4 kg, up from 56.8 kg. Bowel Motility:+BM reported 02/21 Labs Reviewed:Cr 2.10,BUN 31,Hct 23.1,Hgb 7.8 Meds Noted:Pepcid,Lopressor, Sliver Gel, Percocet Additional Notes: Nutrition follow up. Patient remains on a regular diet. Oral Intake: Fair-50% for breakfast meal today. Patient has been refusing therapies. From a nutritional standpoint, po intakes continue to be encouraged. Agree with diet orders. Monitoring: Will monitor every 5 days.
--- NOTE | 2021-02-25 12:09 | PM.IMPN ---
Progress Note: A&P Assessment and Plan (1) Complete small bowel obstruction: Code(s): K56.601 - Complete intestinal obstruction, unspecified as to cause Status: Resolved Assessment and Plan: She reported colicky abdominal pain with progressive worsening for 3 days prior to presentation. She has a hx of several small bowel obstructions. Likely secondary to adhesions from multiple abdominal surgeries in the past vs metastatic colon cancer. CT abd/pelvis demonstrated SBO with clear transition point. She failed to improve with conservative therapy, therefore underwent adhesiolysis and enterectomy with anastomosis by Dr. Miller on 02/11/2021. She tolerated the procedure well and pain is controlled. She had a bowel movement yesterday following dulcolax suppository and Relistor. POD #14 GS following, recommendations appreciated NG tube removed 02/17. Continue diet per general surgery TPN discontinued 02/18, tolerating PO intake. Increased po analgesics; wean IV; and antiemetics available as needed for pain (2) Metastatic colon cancer in female: Onset Date: ~2017 Code(s): C18.9 - Malignant neoplasm of colon, unspecified Status: Chronic Assessment and Plan: Diagnosed in 2015, s/p colectomy and adjuvant chemotherapy w/ FOLFOX at [facility]. S/P hyperthermic intraperitoneal chemotherapy and debulking surgery in 2018 in [place]. S/P bilateral nephrostomy tube placement August 2020 due to extrinsic compression of the ureters from large tumor burden consistent with recurrent metastatic cancer evident. She follows with Dr. Arango and receives palliative panitumumab every other week. Continue oncology recommendations and immunotherapy (3) Acute on chronic kidney failure: Code(s): N17.9 - Acute kidney failure, unspecified; N18.9 - Chronic kidney disease, unspecified Status: Acute Assessment and Plan: Baseline Cr fluctuates. On review of labs, Cr has been between 1.6-3.8. Nephrostomy tubes present. Renal ultrasound on 02/09/2021 showed moderate right renal atrophy without evidence of hydronephrosis and nephrostomy tubes in expected position. She had decreased urine output but this appears to be slowly improving. Creatinine increased up to 2.9 and continues to improve. Cr 2.1 today. Monitor volume status closely with strict I&O. Continue to monitor renal function closely. Renally dose medications and avoid nephrotoxins Consult placed to nephrology. Input is appreciated. Dr. Teran consulted for evaluation of nephrostomy tubes which are patent and draining (4) Anemia of chronic disease: Code(s): D63.8 - Anemia in other chronic diseases classified elsewhere Status: Acute Assessment and Plan: Suspect multifactorial related to iron deficiency, malignancy, and chronic kidney disease. There is no evidence of acute bleeding. Vital signs are stable. Hemoglobin was 10.9-->7.5-->7 today Monitor CBC daily and transfuse as needed to maintain Hb >7 hgb 6.4 Transfuse 1 unit PRBCS (5) Congestive heart failure: Qualifiers: Heart failure type: diastolic Heart failure chronicity: chronic Qualified Code(s): I50.32 - Chronic diastolic (congestive) heart failure Code(s): I50.9 - Heart failure, unspecified Status: Chronic Assessment and Plan: Chronic, diastolic. Last echocardiogram 03/2020 shows EF 55-60%. BNP is elevated. CXR obtained to ensure no evidence of fluid overload. which showed small bilateral pleural effusions without evidence of pulmonary edema. Lungs are clear to auscultation. Will hold off on diuresis at this time. Would consider IV albumin followed by diuresis if she developed symptoms of fluid overload nephrology recommendations appreciated Monitor intake and output Daily weights (6) Lymphedema: Code(s): I89.0 - Lymphedema, not elsewhere classified Status: Chronic Assessment and Plan: Bi
[2021-02-25 14:00] VITALS: BP 140/72; PULSE 64; RESP 16; TEMP 36.3; O2SAT 100
--- NOTE | 2021-02-25 16:35 | PM.PNNEP ---
Progress Note: A&P Assessment and Plan (1) JOSE (acute kidney injury): Code(s): N17.9 - Acute kidney failure, unspecified Status: Acute Assessment and Plan: resolved due to prerenal factors due to SBO (2) Stage 3b chronic kidney disease: Code(s): N18.32 - Chronic kidney disease, stage 3b Status: Chronic Assessment and Plan: baseline creatinine seems to average out around 1.6 - 2.1mg/dl due to 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) -- attempts at ureteral stenting failed so she ended up needing bilateral nephrostomy tubes (3) Small bowel obstruction: Onset Date: ~12/21/20 Code(s): K56.609 - Unspecified intestinal obstruction, unspecified as to partial versus complete obstruction Status: Resolved Assessment and Plan: resolved thought to be secondary to previous surgeries and adhesions s/p adhesiolysis and enterectomy with anastomosis (on 02/11/21) (4) Metastatic colon cancer in female: Onset Date: ~2017 Code(s): C18.9 - Malignant neoplasm of colon, unspecified Status: Chronic Assessment and Plan: follow with Hem/Onc as outpatient poor prognosis Nothing much else to add -- will continue to follow intermittently. Subjective Date/time seen: 02/25/21 16:35 No new issues or problems to report; eager for discharge; no apparent distress voiced at the time of my visit; eating and drinking reasonably well. Exam Narrative: Exam Narrative: General: chronically ill appearing AA female in NAD Heart: normal S1 and S2 Lungs: clear bilaterally Abdomen: soft, nontender, nondistended, positive bowel sounds Extremities: 1-2+ edema bilaterally Skin: warm and dry Objective Data Vital Signs Vital Signs: Vital Signs Temp Pulse Resp BP Pulse Ox 02/25/21 14:00 36.3 C L 64 16 140/72 100 02/25/21 09:15 70 02/25/21 06:00 36.4 C 81 20 113/76 100 02/24/21 22:00 36.3 C L 75 18 121/71 100 02/24/21 20:28 71 Intake/Output Intake/Output: Intake & Output 02/22/21 02/23/21 02/24/21 02/25/21 23:59 23:59 23:59 23:59 Intake Total 1680 1216 470 880 Output Total 825 975 450 250 Balance 855 241 20 630 Meds/Results Medications: Active Medications Generic Name Dose Route Start Last Admin Trade Name Freq PRN Reason Stop Dose Admin Acetaminophen 650 mg 02/18/21 13:22 02/23/21 18:00 Acetaminophen 325 Mg Tablet PO 650 mg Q4H PRN Administration Pain 1-5 Benzocaine 1 lozenge 02/09/21 11:39 02/09/21 14:31 Benzocaine/Menthol (*Bkc) 18 Ea Lozenge PO 1 lozenge PRN PRN Administration Sore Throat Bisacodyl 10 mg 02/17/21 07:58 02/17/21 10:12 Bisacodyl 10 Mg Suppository RECTAL 10 mg QAM PRN Administration Constipation Diphenhydramine HCl 50 mg 02/23/21 18:00 Diphenhydramine Hcl Inj 50 Mg/Ml Vial IV PUSH Q4H PRN Itching Famotidine 20 mg 02/19/21 09:00 02/25/21 09:16 Famotidine 20 Mg Tablet PO 20 mg Q12HR BORIS Administration Heparin Sodium (Porcine) 500 units 02/07/21 10:01 Heparin Sod Flush 500 Units/5 Ml Syringe IV PUSH PRN PRN see comments below Heparin Sodium (Porcine) 5,000 units 02/07/21 21:00 02/12/21 20:21 Heparin Sodium 5,000 Units/Ml Vial SUB-Q 5,000 units Q12HR BORIS Administration Hydralazine HCl 10 mg 02/08/21 22:11 02/08/21 22:26 Hydralazine Hcl 20 Mg/Ml Vial IV PUSH 10 mg Q4H PRN Administration Blood Pressure - High Hydromorphone HCl 0.5 mg 02/18/21 13:23 02/22/21 19:57 Hydromorphone Hcl Inj (*Crx) 1 Mg/Ml Syr IV PUSH 0.5 mg Q3H PRN Administration Breakthrough Pain Dextrose 1,000 mls @ 50 mls/hr 02/14/21 11:40 Dextrose 10% IV CONT .Q20H PRN if PN is interrupted Metoprolol Tartrate 12.5 mg 02/09/21 09:00 02/25/21 09:15 Metoprolol Tartrate 12.5 Mg Tablet FEED TUBE 12.5 mg Q12HR BORIS Admini
[2021-02-25] MEDS: oxyCODONE/ACETAMINOPHEN (*CRX) 5-325 MG TABLET 2 TABLET PO (17:53)
[2021-02-25] MEDS: HYDROmorphone HCL INJ (*CRX) 1 MG/ML SYR 0.5 MG IV PUSH (20:42)
[2021-02-25 21:40] VITALS: BP 121/67; PULSE 66; RESP 18; TEMP 37; O2SAT 100
[2021-02-26] MEDS: oxyCODONE/ACETAMINOPHEN (*CRX) 5-325 MG TABLET 1 TABLET PO (04:28)
[2021-02-26 05:47] VITALS: BP 136/81; PULSE 78; RESP 18; TEMP 37.1; O2SAT 100
[2021-02-26] MEDS: FAMOTIDINE 20 MG TABLET PO ×2 (08:21→21:26)
[2021-02-26 08:25] VITALS: PULSE 78
[2021-02-26] MEDS: METOPROLOL TARTRATE 12.5 MG TABLET FEED TUBE ×2 (08:25→21:26)
[2021-02-26] MEDS: SILVERGEL (ELTA) 45 ML 1 APPLIC TOPICAL (09:30)
[2021-02-26 14:00] VITALS: BP 120/78; PULSE 84; RESP 20; TEMP 36.9; O2SAT 97
--- NOTE | 2021-02-26 14:05 | PM.IMPN ---
Progress Note: A&P Assessment and Plan (1) Discharge planning issues: Code(s): Z02.9 - Encounter for administrative examinations, unspecified Status: Acute Assessment and Plan: Patient is pending insurance authorization to a SNF facility. She is too weak to be discharged home at this time. She needs to go to an SNF but are waiting for insurance authorization at this time. Will recheck labs in the morning (2) Complete small bowel obstruction: Code(s): K56.601 - Complete intestinal obstruction, unspecified as to cause Status: Resolved Assessment and Plan: She reported colicky abdominal pain with progressive worsening for 3 days prior to presentation. She has a hx of several small bowel obstructions. Likely secondary to adhesions from multiple abdominal surgeries in the past vs metastatic colon cancer. CT abd/pelvis demonstrated SBO with clear transition point. She failed to improve with conservative therapy, therefore underwent adhesiolysis and enterectomy with anastomosis by Dr. Miller on 02/11/2021. She tolerated the procedure well and pain is controlled. POD #15 NG tube removed 02/17. Continue diet per general surgery TPN discontinued 02/18, tolerating PO intake. General surgery monitoring intermittently. Doing well with pain control and last BM was yesterday. (3) Metastatic colon cancer in female: Onset Date: ~2017 Code(s): C18.9 - Malignant neoplasm of colon, unspecified Status: Chronic Assessment and Plan: Diagnosed in 2015, s/p colectomy and adjuvant chemotherapy w/ FOLFOX at [facility]. S/P hyperthermic intraperitoneal chemotherapy and debulking surgery in 2017 in [place]. S/P bilateral nephrostomy tube placement August 2020 due to extrinsic compression of the ureters from large tumor burden consistent with recurrent metastatic cancer evident. She follows with Dr. Arango and receives palliative panitumumab every other week. Continue oncology recommendations and immunotherapy (4) Acute on chronic kidney failure: Code(s): N17.9 - Acute kidney failure, unspecified; N18.9 - Chronic kidney disease, unspecified Status: Acute Assessment and Plan: Baseline Cr fluctuates. On review of labs, Cr has been between 1.6-3.8. Nephrostomy tubes present. Renal ultrasound on 02/09/2021 showed moderate right renal atrophy without evidence of hydronephrosis and nephrostomy tubes in expected position. Monitor volume status closely with strict I&O. Continue to monitor renal function closely. Renally dose medications and avoid nephrotoxins Nephrology monitoring intermittently and no need for further adjustments at this time. Dr. Teran consulted for evaluation of nephrostomy tubes which are patent and draining. They have signed off. (5) Anemia of chronic disease: Code(s): D63.8 - Anemia in other chronic diseases classified elsewhere Status: Acute Assessment and Plan: Suspect multifactorial related to iron deficiency, malignancy, and chronic kidney disease. There is no evidence of acute bleeding. Vital signs are stable. Monitor CBC daily and transfuse as needed to maintain Hb >7 Transfuse 1 unit PRBCS (6) Congestive heart failure: Qualifiers: Heart failure type: diastolic Heart failure chronicity: chronic Qualified Code(s): I50.32 - Chronic diastolic (congestive) heart failure Code(s): I50.9 - Heart failure, unspecified Status: Chronic Assessment and Plan: Chronic, diastolic. Last echocardiogram 03/2020 shows EF 55-60%. BNP is elevated. CXR obtained to ensure no evidence of fluid overload and showed small bilateral pleural effusions without evidence of pulmonary edema. Lungs are clear to auscultation. Discussed with Nephrology who recommends holding off on diuresis at this time. Believed Leg swelling is from lymphedema from met cancer as well a
[2021-02-26] MEDS: CENTRAL LINE FLUSH 10 ML IV PUSH ×2 (14:49→21:27)
[2021-02-26] MEDS: HYDROmorphone HCL INJ (*CRX) 1 MG/ML SYR 0.5 MG IV PUSH (15:37)
[2021-02-26 21:26] VITALS: PULSE 84
[2021-02-26] MEDS: oxyCODONE/ACETAMINOPHEN (*CRX) 5-325 MG TABLET 2 TABLET PO (21:36)
[2021-02-26 22:00] VITALS: BP 135/80; PULSE 80; RESP 18; TEMP 36.9; O2SAT 100
[2021-02-27] MEDS: oxyCODONE/ACETAMINOPHEN (*CRX) 5-325 MG TABLET 2 TABLET PO ×2 (02:25→14:25)
[2021-02-27] MEDS: CENTRAL LINE FLUSH 10 ML IV PUSH ×5 (05:06→22:10)
[2021-02-27 05:08] LABS: Basophils Percent Auto 0.1 % (0.2-1.2); Eosinophils Percent Auto 0.3 % (0-4.4); Hematocrit 24.2 % (37.0-47.0); Immature Granulocyte Absolute 0.05 K/mm3 (0.00-0.031); Immature Granulocyte Percent A 0.6 % (0-0.5); Lymphocytes Absolute Auto 0.69 K/mm3 (0.9-3.2); Lymphocytes Percent Auto 8.7 % (18.3-44.2); Mean Corpuscular HGB Conc 33.1 g/dl (32-36); Mean Corpuscular Hemoglobin 28.7 pg (26-34); Mean Corpuscular Volume 86.7 fl (80-100); Mean Platelet Volume 9.7 fl (7.4-10.4); Monocytes Absolute Auto 0.7 K/mm3 (0.1-0.6); Monocytes Percent Auto 8.8 % (2.6-8.5); Neutrophils Absolute Auto 6.5 K/mm3 (1.3-6.7); Neutrophils Percent Auto 81.5 % (45.5-73.1); Platelet Count Result 139 k/mm3 (150-375); Red Blood Count 2.79 M/mm3 (4.2-5.4); Red Cell Distribution Width 16.2 % (11.5-14.5)
[2021-02-27 05:20] LABS: Anion Gap 3 mmol/L (8-16); Blood Urea Nitrogen 33 mg/dL (7-17); Calcium 7.3 mg/dL (8.4-10.2); Carbon Dioxide 21 mmol/L (22-30); Chloride 114 mmol/L (98-107); Estimated CRCL calculation 23 ml/min; Estimated Glomerular Filt Rate 28; Glucose 87 mg/dL (65-105); Magnesium 1.6 mg/dL (1.6-2.3); Potassium 3.7 mmol/L (3.4-5.0); Sodium 138 mmol/L (137-145)
[2021-02-27 05:26] VITALS: BP 128/75; PULSE 63; RESP 18; TEMP 36.6; O2SAT 100
[2021-02-27] MEDS: FAMOTIDINE 20 MG TABLET PO ×2 (08:43→21:52)
[2021-02-27 08:44] VITALS: PULSE 70
[2021-02-27] MEDS: METOPROLOL TARTRATE 12.5 MG TABLET FEED TUBE ×2 (08:44→21:51)
[2021-02-27] MEDS: SILVERGEL (ELTA) 45 ML 1 APPLIC TOPICAL ×3 (08:45→21:47)
[2021-02-27] MEDS: MAGNESIUM SULF 2 GM/WATER 50ML 2 GM/50 ML BAG IVPB (09:51)
[2021-02-27 14:00] VITALS: BP 132/63; PULSE 62; RESP 16; TEMP 36.3; O2SAT 100
--- NOTE | 2021-02-27 14:37 | PM.DS ---
DS: Admitting Diagnosis Admitting Diagnosis Admitting Diagnosis: Abd pain DS: Discharge Diagnosis Discharge Diagnosis (1) Discharge planning issues: Code(s): Z02.9 - Encounter for administrative examinations, unspecified Status: Acute Assessment and Plan: The patient is stable and ready to be discharged to SNF facility at this time. (2) Complete small bowel obstruction: Code(s): K56.601 - Complete intestinal obstruction, unspecified as to cause Status: Resolved Assessment and Plan: She reported colicky abdominal pain with progressive worsening for 3 days prior to presentation. She has a hx of several small bowel obstructions. Likely secondary to adhesions from multiple abdominal surgeries in the past vs metastatic colon cancer. CT abd/pelvis demonstrated SBO with clear transition point. POD #16 NG tube removed 02/17. Continue diet per general surgery TPN discontinued 02/18, tolerating PO intake. Patient doing well with p.o. intake and bowel movements. No abdominal pain at this time. Surgery will follow her up in 1 week as an outpatient. Surgical incision site is healing well other than 1 small opening inserted will put in orders for silver gel to be applied. (3) Metastatic colon cancer in female: Onset Date: ~2017 Code(s): C18.9 - Malignant neoplasm of colon, unspecified Status: Chronic Assessment and Plan: Diagnosed in 2015, s/p colectomy and adjuvant chemotherapy w/ FOLFOX at [facility]. S/P hyperthermic intraperitoneal chemotherapy and debulking surgery in 2017 in [place]. S/P bilateral nephrostomy tube placement August 2020 due to extrinsic compression of the ureters from large tumor burden consistent with recurrent metastatic cancer evident. She follows with Dr. Arango and receives palliative panitumumab every other week. Continue oncology recommendations and immunotherapy in 1 week (4) Acute on chronic kidney failure: Code(s): N17.9 - Acute kidney failure, unspecified; N18.9 - Chronic kidney disease, unspecified Status: Acute Assessment and Plan: Baseline Cr fluctuates. On review of labs, Cr has been between 1.6-3.8. Nephrostomy tubes present. Renal ultrasound on 02/09/2021 showed moderate right renal atrophy without evidence of hydronephrosis and nephrostomy tubes in expected position. Nephrology monitoring intermittently and no need for further adjustments at this time. Dr. Teran consulted for evaluation of nephrostomy tubes which are patent and draining. They have signed off. Recommend SNF facility checking weights daily, low-salt diet and monitoring blood pressure. Will recheck labs in 1 week. (5) Anemia of chronic disease: Code(s): D63.8 - Anemia in other chronic diseases classified elsewhere Status: Acute Assessment and Plan: Suspect multifactorial related to iron deficiency, malignancy, and chronic kidney disease. There is no evidence of acute bleeding. Vital signs are stable. Transfuse 1 unit PRBCS during admission. H&H is stable at this time. Will check labs in 1 week. (6) Congestive heart failure: Qualifiers: Heart failure chronicity: chronic Heart failure type: diastolic Qualified Code(s): I50.32 - Chronic diastolic (congestive) heart failure Code(s): I50.9 - Heart failure, unspecified Status: Chronic Assessment and Plan: Chronic, diastolic. Last echocardiogram 03/2020 shows EF 55-60%. BNP is elevated. CXR obtained to ensure no evidence of fluid overload and showed small bilateral pleural effusions without evidence of pulmonary edema. Lungs are clear to auscultation. Discussed with Nephrology who recommends holding off on diuresis at this time. Believed Leg swelling is from lymphedema from met cancer as well as some fluid. She otherwise is feeling well, asymptomatic and with no complaints. Monitor in
[2021-02-27] MEDS: HYDROmorphone HCL INJ (*CRX) 1 MG/ML SYR 0.5 MG IV PUSH (16:28)
[2021-02-27 21:56] VITALS: BP 130/80; PULSE 73; RESP 16; TEMP 36.7; O2SAT 100
--- NOTE | 2021-02-27 22:56 | PC.NURSE ---
2114: Daughter in room and inquires to screen writer on why we're giving her mom metoprolol? She stated that her mom has not ever been diagnosed w/ HTN and currently her BP holds steady and currently reads 130/80 with no s/s of distress. Inspector [employer] informed daughter (Jose) that she would hold off on med administration and call the on-call ELECTRIC ORGAN CHECKER (Hilda Antonio). Daugher responded that she would like that. Inspector Toys notified Hilda [facility]. 2199: Hilda arrived and conferred w/ both myself and daughter and agreed to d/c metoprolol NOW. Medication removed from WOW cassette drawer, bagged and placed in medication room. [facility] to note that medication was not given and reasons why.//cr
== END 2021-02-28 01:35 | DRG 329 ==
LOC: ANHED 20:44 → ANH3MEDSUR 02-07 07:03
PROVIDERS: Family Medicine; Internal Medicine Nephrology; Nurse Practitioner; Nurse Practitioner Adult Health; Nurse Practitioner Family; Physician Assistant; Physician Assistant Medical; Surgery; Admitting Provider Internal Medicine; Emergency Provider Emergency Medicine; PCP Family Medicine Sports Medicine; Visit Provider Physician Assistant
PROC: 0DBA0ZZ Excision of Jejunum, Open Approach (ICD-10-PCS; CPT 49000; principal; 2021-02-11 16:00)
DX: K56.601 Complete intestinal obstruction, unspecified as to cause (principal); E43 Unspecified severe protein-calorie malnutrition; J18.9 Pneumonia, unspecified organism; I13.0 Hypertensive heart and chronic kidney disease with heart failure and stage 1 through stage 4 chronic kidney disease, or unspecified chronic kidney disease; I50.32 Chronic diastolic (congestive) heart failure; N17.9 Acute kidney failure, unspecified; C18.7 Malignant neoplasm of sigmoid colon; C79.89 Secondary malignant neoplasm of other specified sites; B49 Unspecified mycosis; D69.6 Thrombocytopenia, unspecified; D72.829 Elevated white blood cell count, unspecified; D63.8 Anemia in other chronic diseases classified elsewhere; N18.32 Chronic kidney disease, stage 3b; Y95 Nosocomial condition; Z20.822 Contact with and (suspected) exposure to COVID-19; R82.71 Bacteriuria; E83.42 Hypomagnesemia; I89.0 Lymphedema, not elsewhere classified; N26.1 Atrophy of kidney (terminal); I34.0 Nonrheumatic mitral (valve) insufficiency; Z98.41 Cataract extraction status, right eye; Z98.42 Cataract extraction status, left eye; Z96.1 Presence of intraocular lens; Z79.899 Other long term (current) drug therapy; Z86.718 Personal history of other venous thrombosis and embolism; Z87.891 Personal history of nicotine dependence; Z90.49 Acquired absence of other specified parts of digestive tract; Z95.828 Presence of other vascular implants and grafts; Z96.0 Presence of urogenital implants
CPT/HCPCS: 36415; 36430; 71045; 71046; 74018; 74176; 74240; 74248; 76775; 80048; 80053; 80069; 80202; 81001; 82436; 82570; 82948; 83690; 83735; 83880; 84100; 84145; 84300; 84466; 84478; 85014; 85018; 85025; 85027; 85055; 85610; 85730; 86022; 86850; 86900; 86901; 86922; 87040; 87077; 87086; 87088; 87186; 87899; 88307; 88309; 93970; 96372; 96374; 96375; 96376; 97110; 97116; 97161; 97165; 97168; 97530; 97535; 99285; A9270; C9803; J0131; J0330; J0360; J0690; J0692; J1100; J1170; J1200; J1644; J1741; J1956; J2212; J2250; J2270; J2370; J2405; J2704; J2710; J3010; J3370; J3475; J3480; J7030; J7050; J7120; J7121; P9016; Q5106; U0003; U0005

== ENCOUNTER 2021-03-01 21:36 | Emergency (ER) | payer MEDICARE, MEDICAID, SELFPAY ==
--- NOTE | ~2021-03-01 | CT_ITS ---
EXAMINATION: CT abdomen pelvis wo con DATE: 03/02/2021 00:07 INDICATION: Abdominal distention TECHNIQUE: Computed tomography (CT) of the abdomen and pelvis was performed without intravenous contr ast. Automated exposure control and iterative reconstruction technique were employed. The dose-length product was 638.17 mGy-cm. COMPARISON: None FINDINGS: Discoid atelectasis in the bilateral lower lobes. Mild cardiomegaly. No pericardial or pleural effusi on. Ectatic ascending thoracic aorta measuring up to 4.1 cm in maximal diameter. 3.1 cm hypodense mas s in the left hepatic lobe with enhancement pattern on prior contrast enhanced CT consistent with hem angioma. Gallbladder, spleen, pancreas and bilateral adrenal glands are normal. 3.5 cm cyst at the up per pole of the left kidney. Bilateral percutaneous nephrostomy tubes with loops formed in the bilate ral renal pelvises. Partial colectomy with anastomosis in the pelvis. Large amount of stool in the re maining colon with 8.8 cm ball of stool at the rectum be seen with fecal impaction. Short segment of bowel dilated to 8.0 cm in the right lower quadrant, unclear whether this represents small or large b owel. Bladder is normal. The uterus is not identified and has likely been surgically resected. 3.9 x 2.9 cm mas long the distal sigmoid colon and abutting the vaginal cuff. Extensive body wall edema thr oughout the abdomen and pelvis extending to the proximal thighs. No pathologically enlarged abdominal or pelvic lymphadenopathy. mild lumbar spondylosis. There is decreased thickness of the subcutaneous tissues overlying the caudal sacrum and coccyx consistent with given history of decubitus ulcer. IMPRESSION: 1. Short segment of probably dilated small bowel measuring up to 8 cm in maximal diameter the right a bdomen concerning for bowel obstruction. Kidneys relatively short length affected would favor either acute or intermittent obstruction. 2. Unchanged nonspecific 3.9 x 2.9 cm pelvic mass along the right side of the vaginal cuff which is d ecreased from prior PET study dated 09/20/2020 at which time it measured 5.1 x 4.4 cm. This is concer jaime for metastatic colon cancer with change of interval response to treatment. Postoperative change of prior bilateral percutaneous nephrostomy tube placement with tubes in expected positions at the bi lateral renal diamante. 4. Diffuse body wall edema and sacral decubitus ulcer. Reviewed, dictated and finalized at location A. IMPRESSION: 1. Short segment of probably dilated small bowel measuring up to 8 cm in carlos l diameter the right abdomen concerning for bowel obstruction. Kidneys relative ly short length affected would favor either acute or intermittent obstruction. 2. Unchanged nonspecific 3.9 x 2.9 cm pelvic mass along the right side of the v aginal cuff which is decreased from prior PET study dated 09/20/2020 at which t ivan it measured 5.1 x 4.4 cm. This is concerning for metastatic colon cancer wi th change of interval response to treatment. Postoperative change of prior bila teral percutaneous nephrostomy tube placement with tubes in expected positions at the bilateral renal diamante. 4. Diffuse body wall edema and sacral decubitus ulcer.
--- NOTE | ~2021-03-01 | XR_ITS ---
EXAMINATION: XR chest 1V portable DATE: 03/01/2021 22:17 INDICATION: Assess pre-existing central line TECHNIQUE: frontal view of the chest was obtained. COMPARISON: Chest radiograph dated 02/23/2021 FINDINGS: Right internal jugular central venous port catheter with distal tip at the superior cavoatrial juncti on. Lungs are clear with no focal airspace opacities, pulmonary edema, pleural effusion or pneumothor ax. The cardiomediastinal silhouette is normal. Bilateral percutaneous nephrostomy tubes with distal loop of the left 2 formed over the expected location of the left renal pelvis. The distal aspect of t he right tube extends beyond the caudal margin of the [id number]. IMPRESSION: 1. No acute cardiopulmonary disease. Reviewed, dictated and finalized at location A.
--- NOTE | ~2021-03-01 | XR_ITS ---
EXAMINATION: XR abdomen/kub 1V DATE: 03/01/2021 23:32 INDICATION: Intermittent constipation TECHNIQUE: A supine view of the abdomen was obtained. COMPARISON: KUB dated 02/10/[address] dated 02/06/2021 FINDINGS: Percutaneous nephrostomy tubes with formed loop projecting over the expected location of the bilatera l renal pelvises sees. Moderate amount of stool in the colon at the right lower quadrant and pelvis. There are some dilated loops of small bowel in the left abdomen which could represent an ileus or obs truction. IMPRESSION: 1. Dilated small bowel in the left abdomen suspicious for obstruction with differential including ile us. 2. Moderate amount of stool in the remaining distal colon. Reviewed, dictated and finalized at location A. IMPRESSION: 1. Dilated small bowel in the left abdomen suspicious for obstruction with diff erential including ileus. 2. Moderate amount of stool in the remaining distal colon.
[2021-03-01 21:37] VITALS: BP 157/81; PULSE 72; RESP 16; TEMP 37.1; O2SAT 100
--- NOTE | 2021-03-01 21:57 | PC.NURSE ---
stage 2 sore to the buttox area.
[2021-03-01] MEDS: MORPHINE SULFATE (*CRX) 4 MG/ML INJ IV PUSH (22:06)
--- NOTE | 2021-03-01 22:07 | ED.GENADULT ---
HPI - General Adult General Chief complaint: Unspecified Stated complaint: buttock pain - stage 2 ulcer Time Seen by Provider: 03/01/21 21:41 History of Present Illness HPI narrative: Patient is a 60-year-old female who presents to the ER with a sore on her buttock. 1 week ago she developed decubitus ulcer stage II. She has been getting creams and packing applied. [facility]. She reports they would only give her a one-time dose of Percocet and no additional pain medication. This is upset her. No new fevers or chills or sweats. No new drainage. She reports she no longer wants to reside in the residential and plans on having somebody come to pick her up to take her home. Patient receives palliative chemotherapy for metastatic colon cancer. She recently had bowel obstruction due to adhesions. She is having no abdominal pain or nausea or vomiting. Related Data Home Medications Medication Instructions Recorded Confirmed docusate sodium [DOK] 100 mg PO BID 02/04/21 02/06/21 ondansetron 4 mg PO Q6H 02/04/21 02/06/21 Besivance 1 drp RIGHT EYE BID 02/08/21 02/08/21 Lotemax 1 drp RIGHT EYE BID 02/08/21 02/08/21 Prolensa 1 drp RIGHT EYE DAILY 02/08/21 02/08/21 Systane Complete 1 drp EACH EYE Q4-6H PRN 02/08/21 02/08/21 bisacodyl 10 mg RECTAL DAILY PRN 03/01/21 magnesium citrate 150 ml PO DAILY PRN 03/01/21 magnesium hydroxide [Milk of mg 03/01/21 Magnesia] sodium phosphates [Fleet Enema] 118 ml RECTAL ONCE 03/01/21 Allergies Allergy/AdvReac Type Severity Reaction Status Date / Time lactose Allergy Vomiting Verified 03/01/21 21:44 lisinopril Allergy Swelling Verified 03/01/21 21:44 hydrocodone AdvReac Intermediate Nausea and Verified 03/01/21 21:44 Vomiting tramadol AdvReac Intermediate Nausea and Verified 03/01/21 21:44 Vomiting codeine AdvReac Mild Nausea and Verified 03/01/21 21:44 Vomiting penicillin G AdvReac Mild Nausea and Verified 04/30/21 21:44 Vomiting Sulfa (Sulfonamide AdvReac Mild Nausea and Verified 03/01/21 21:44 Antibiotics) Vomiting aspirin [From [facility]] AdvReac Nausea Verified 03/01/21 21:44 citric acid AdvReac Nausea Verified 03/01/21 21:44 [From [facility]] lorazepam AdvReac Nausea Verified 03/01/21 21:44 sodium bicarbonate AdvReac Nausea Verified 03/01/21 21:[address] [[address] [facility]] Review of Systems Review of Systems: All systems reviewed & are unremarkable except as noted in HPI and below Constitutional: Constitutional: Denies body ache(s), Denies chills and Denies fever(s) Cardiovascular: Cardiovascular: Denies chest pain and Denies radiating jaw, neck or arm pain Respiratory: Respiratory: Denies chest congestion, Denies cough and Denies dyspnea Gastrointestinal: Gastrointestinal: Denies abdominal pain, Denies nausea and Denies vomiting Integumentary/Breasts: Comments: None buttock wound with pain PMFSH Past Medical History Medical History Acute on chronic anemia Anemia of chronic disease Anxiety Chronic kidney disease (~03/2020) Baseline creatinine is between 2.0 and 2.40. Congestive heart failure Grade 1 diastolic dysfunction with an EF of 55-60%. Deep vein thrombosis of right lower extremity History of small bowel obstruction Hypertension Metastatic colon cancer in female (~2017) Diagnosis in 2016, status post colectomy with colostomy and adjuvant chemotherapy with FOLFOX. Status post hyperthermic intraperitoneal chemotherapy with debulking surgery in 2017 done in [place]. Status post bilateral nephrostomy tube placement in August 2020 due to extrinsic compression of the ureters from a large tumor, found to be recurrent metastatic cancer. Imaging on 12/21/2020 showed a malignant mass in the sigmoid colon with pelvic lymphadenopathy and multiple peritoneal masses consistent with metastatic disease. She is currently receiving immunotherapy per Dr. Jeffries
[2021-03-01 22:42] VITALS: BP 145/75; PULSE 75; RESP 20; O2SAT 98
--- NOTE | 2021-03-01 22:43 | PC.NURSE ---
pt @ this time is refusing to return to the [facility] and wants to go to her daughters house.
--- NOTE | 2021-03-01 22:55 | PC.NURSE ---
Daughter of pt on the phone with charge nurse at this time. Daughter is screaming into computed tomography scanner operator and will not allow the rn to speak . mink rancher attempted to get clarification of the reason daughter wanted the pt to e seen and daughter stated abd pain and no bm since thursday. Once RN was able to verbalized that the report that she was given from the [facility] was that pt was being sent in per daughter request for pain control. Daughter again started screaming and said thats a lie . Daughter proceeded to continue to scream at hemodialysis charge nurse about the real reason she was sent here and then proceeded to hang up on battery charger. ERP Dr. Erickson aware of situation.
--- NOTE | 2021-03-01 23:09 | PC.NURSE ---
pt daughter at intake asking to speak with charge nurse. rn able to get daughter calm and have a conversation with her. Daughters main concern is the pt is confused and not having bm even if she says she is having them. I just want her looked at to make sure that she is not having another blockage in which she will need to have another NG tube placed. ERP Dr. Erickson notified.
[2021-03-02 00:09] LABS: Basophils Percent Auto 0.1 % (0.2-1.2); Eosinophils Percent Auto 0.4 % (0-4.4); Hematocrit 25.2 % (37.0-47.0); Hemoglobin 8.1 g/dL (12.0-15.0); Immature Granulocyte Absolute 0.06 K/mm3 (0.00-0.031); Immature Granulocyte Percent A 0.6 % (0-0.5); Lymphocytes Absolute Auto 0.91 K/mm3 (0.9-3.2); Lymphocytes Percent Auto 9.1 % (18.3-44.2); Mean Corpuscular HGB Conc 32.1 g/dl (32-36); Mean Corpuscular Hemoglobin 28.3 pg (26-34); Mean Corpuscular Volume 88.1 fl (80-100); Mean Platelet Volume 9.9 fl (7.4-10.4); Monocytes Absolute Auto 0.9 K/mm3 (0.1-0.6); Monocytes Percent Auto 9.1 % (2.6-8.5); Neutrophils Percent Auto 80.7 % (45.5-73.1); Platelet Count Result 184 k/mm3 (150-375); Red Blood Count 2.86 M/mm3 (4.2-5.4); Red Cell Distribution Width 16.8 % (11.5-14.5)
[2021-03-02 00:23] LABS: Anion Gap 3 mmol/L (8-16); Blood Urea Nitrogen 38 mg/dL (7-17); Calcium 7.8 mg/dL (8.4-10.2); Carbon Dioxide 20 mmol/L (22-30); Chloride 115 mmol/L (98-107); Estimated CRCL calculation 30 ml/min; Estimated Glomerular Filt Rate 33; Glucose 100 mg/dL (65-105); Potassium 3.8 mmol/L (3.4-5.0); Sodium 138 mmol/L (137-145)
[2021-03-02 00:45] VITALS: BP 152/81; PULSE 73; RESP 20; O2SAT 100
--- NOTE | 2021-03-02 01:39 | PC.NURSE ---
Called Vidya for transfer back to [facility]. Eta [phone]
[2021-03-02 02:40] VITALS: BP 137/100; PULSE 83; RESP 18; O2SAT 95
--- NOTE | 2021-03-02 04:21 | PC.NURSE ---
Called Dasilva for an updated ETA of [phone]
[2021-03-02 05:24] VITALS: BP 149/88; PULSE 88; RESP 16; O2SAT 100
--- NOTE | 2021-03-02 06:53 | PC.NURSE ---
Called [facility] for updated transport time. New transport time of 0930 given.
[2021-03-02 08:00] VITALS: BP 142/99; PULSE 100; RESP 20; O2SAT 100
[2021-03-02 10:05] VITALS: BP 150/88; PULSE 82; RESP 20; O2SAT 95
--- NOTE | 2021-03-02 10:52 | PC.NURSE ---
lunch tray ordered for pt
[2021-03-02 11:15] VITALS: BP 150/88; PULSE 80; RESP 20; O2SAT 96
== END 2021-03-02 11:20 ==
PROVIDERS: Emergency Provider Emergency Medicine; PCP Family Medicine Sports Medicine
DX: L89.302 Pressure ulcer of unspecified buttock, stage 2 (principal); C18.7 Malignant neoplasm of sigmoid colon; C79.89 Secondary malignant neoplasm of other specified sites; I13.0 Hypertensive heart and chronic kidney disease with heart failure and stage 1 through stage 4 chronic kidney disease, or unspecified chronic kidney disease; N18.9 Chronic kidney disease, unspecified; I50.9 Heart failure, unspecified; Z86.718 Personal history of other venous thrombosis and embolism; D63.1 Anemia in chronic kidney disease; I35.1 Nonrheumatic aortic (valve) insufficiency; Z90.49 Acquired absence of other specified parts of digestive tract; Z96.0 Presence of urogenital implants; Z98.42 Cataract extraction status, left eye; Z98.41 Cataract extraction status, right eye; Z96.1 Presence of intraocular lens; Z87.891 Personal history of nicotine dependence; R93.3 Abnormal findings on diagnostic imaging of other parts of digestive tract
CPT/HCPCS: 36415; 71045; 74018; 74176; 80048; 85025; 96374; 99284; J2270

== ENCOUNTER 2021-03-06 12:34 | Inpatient (IN) | payer MEDICARE, MEDICAID, SELFPAY ==
[2021-03-06] VITALS (30 sets, daily range): BP systolic 111–133; BP diastolic 74–98; PULSE 70–116; RESP 9–25; TEMP 36.2–36.4; O2SAT 92–100; BMI 28.2; BMI 28.0
--- NOTE | ~2021-03-06 | US_ITS ---
EXAMINATION: US venous doppler UE EXAM DATE: 03/06/2021 13:32 INDICATION: Left arm swelling. TECHNIQUE: Multiple grayscale, color flow, Doppler sonographic images of the left upper extremity vei ns obtained by technologist. Compression was performed where able. There is no prior study for anselmo allen. FINDINGS: Left upper extremity: Jugular vein: ------------> Normal. Subclavian vein: --------> Normal. Axillary vein:------------> Normal. Brachial vein:-----------> Normal. Basilic vein: ------------> Normal. Cephalic vein: ----------> Normal. Radial vein: ------------> Normal. Ulnar vein: > Not visualized. Arm edema noted. IMPRESSION: No thrombus in visualized left upper extremity veins. Ulnar vein not specifically identif ied. Reviewed, dictated and finalized at location B. IMPRESSION: No thrombus in visualized left upper extremity veins. Ulnar vein no t specifically identified.
--- NOTE | ~2021-03-06 | XR_ITS ---
EXAMINATION: XR chest 1V portable EXAM DATE: 04/07/2021 05:32 INDICATION: Respiratory failure TECHNIQUE: Portable AP frontal chest x-ray was obtained. Comparison is made to prior examination from 04/05, 04/04. FINDINGS: Endotracheal tube tip is 4 centimeters above the mango. There is right-sided CT injectabl e portacatheter. There is a nasogastric tube seen with tip collimated off the study, but below the le ft hemidiaphragm. Moderate bilateral pleural effusions with adjacent segmental compressive atelectasis. Superimposed ed sylvester and/or pneumonia not excludable. There is no pneumothorax suspected. The cardiomediastinal silh ouette is prominent but magnified on this AP technique. The bones and soft tissues are unremarkable . Over past several days, suspect slight interval increase in the pleural effusions, overall opacity of the right lung. IMPRESSION: 1. Line and tube(s) in position. 2. Moderate pleural effusions, adjacent opacity at least partly atelectasis. Pneumonia not excludabl e. Reviewed, dictated and finalized at location A. IMPRESSION: 1. Line and tube(s) in position. 2. Moderate pleural effusions, adjacent opacity at least partly atelectasis. P neumonia not excludable.
--- NOTE | ~2021-03-06 | US_ITS ---
EXAMINATION: US guide abscess drainage DATE: 03/10/2021 16:11 INDICATION: Right abdominal abscess. TECHNIQUE: The skin overlying the right abdomen was prepped and draped in usual sterile fashion. Ane sthetic was administered with 1% lidocaine subcutaneously. An 8.5 Fr catheter was inserted into the right abdominal abscess by trocar technique. The metal stiffener and trocar needle were removed, and the pigtail tip was locked. The catheter was stitched to the skin with suture. The catheter quickly b ecame occluded. The catheter was cut and exchanged over a wire for 10 Ug[place] and 12 Ugandan dilators a nd a 14 [place] pigtail catheter. The catheter was stitched to the skin with suture, and a dressing wa s applied. There were no immediate complications. FINDINGS: Ultrasound images demonstrate the catheter within the right abdominal abscess. The fluid is opaque, jack, and foul-smelling. IMPRESSION: 1. Ultrasound-guided right abdominal abscess drainage. Reviewed, dictated and finalized at location A.
--- NOTE | ~2021-03-06 | XR_ITS ---
EXAMINATION: XR chest 1V portable INDICATION: Congestive heart failure TECHNIQUE: Portable AP chest at 0514 hours COMPARISON: 03/26/2021 FINDINGS: The endotracheal tube ends approximately 4.5 cm above the mango. The nasogastric tube is f ollowed as far as the stomach. Its tip is beyond the inferior margin of the radiograph. A right inter nal jugular Port-A-Cath ends with its tip at the superior cavoatrial junction. There is a small right pleural effusion. No pneumothorax is identified. There is a mild diffuse interstitial pattern with s light worsening. The cardiomediastinal silhouette is stable. There are increasing airspace opacities of the right lung base. Percutaneous to prostate tubes are noted. IMPRESSION: 1. Diffuse interstitial pattern with slight worsening, likely pulmonary edema. 2. Airspace opacities of the lung bases, worsening in the right lower lung zone, consistent with atel ectasis versus pneumonia. 3. Small pleural effusions. Reviewed, dictated and finalized at location A. IMPRESSION: 1. Diffuse interstitial pattern with slight worsening, likely pulmonary edema. 2. Airspace opacities of the lung bases, worsening in the right lower lung zone , consistent with atelectasis versus pneumonia. 3. Small pleural effusions.
--- NOTE | ~2021-03-06 | XR_ITS ---
EXAMINATION: XR nephrostogram DATE: 03/07/2021 09:30 INDICATION: Assess nephrostomy tube positioning TECHNIQUE: 7 fluoroscopic images of the abdomen were obtained following injection of 20 mL of Omnipaq ue 240 into the patient's existing left percutaneous nephrostomy tube and 15 mm and into the patient' s existing right percutaneous nephrostomy tube. It was noted that there was a blockage of the tube fo r the drainage bag the left nephrostomy tube with significant reflux of urine from the left percutane ous nephrostomy tube upon detachment from the tube into the collection bag. Therefore both drainage b ags were exchanged for new ones. The amount of fluoroscopy time used during this procedure was 0.3 mi nutes. COMPARISON: CT dated 03/02/2021 FINDINGS: Both nephrostomy tubes are appropriately positioned and patent with the loops formed at the calyces in the lower poles of both kidneys. There was moderate right hydroureteronephrosis which charli eared to improve after the tube was connected to the new collection bag. No hydronephrosis on the lef t. IMPRESSION: 1. Patent and appropriately positioned bilateral percutaneous nephrostomy tubes. 2. Moderate left hydronephrosis at the beginning of the procedure which appear to result from a block age in the tubing of the collection bag which was exchanged with subsequent improvement in the degree of left hydronephrosis. Reviewed, dictated and finalized at location A. IMPRESSION: 1. Patent and appropriately positioned bilateral percutaneous nephrostomy tubes . 2. Moderate left hydronephrosis at the beginning of the procedure which appear to result from a blockage in the tubing of the collection bag which was exchang ed with subsequent improvement in the degree of left hydronephrosis.
--- NOTE | ~2021-03-06 | XR_ITS ---
EXAMINATION: XR chest 1V portable DATE: 03/13/2021 05:35 INDICATION: Hypoxia TECHNIQUE: frontal view of the chest was obtained. COMPARISON: Chest radiograph dated 03/12/2021 FINDINGS: Improving aeration of the lungs with decrease in density of patchy airspace opacities scattered throu ghout both lungs. Trace the lateral pleural effusions. No pneumothorax. The cardiomediastinal silhoue tte is normal. Right internal jugular central venous port catheter with distal tip at the caudal supe rior vena cava. IMPRESSION: 1. Decreased density of patchy bilateral airspace opacities consistent with improving pulmonary edema and/or pneumonia. 2. Trace bilateral pleural effusions. 3. Cardiomegaly. Reviewed, dictated and finalized at location A. IMPRESSION: 1. Decreased density of patchy bilateral airspace opacities consistent with imp roving pulmonary edema and/or pneumonia. 2. Trace bilateral pleural effusions. 3. Cardiomegaly.
--- NOTE | ~2021-03-06 | CT_ITS ---
EXAMINATION: CT brain wo con DATE: 03/17/2021 23:41 INDICATION: Mental status change. TECHNIQUE: Computed tomography (CT) of the head was performed without intravenous contrast. The mA wa s adjusted according to patient size. Iterative reconstruction technique was employed. The dose-lengt h product was 605.33 mGy-cm. COMPARISON: Head CT 03/08/2021 FINDINGS: There are scattered areas of low attenuation in the cerebral white matter. There is no intr acranial hemorrhage, acute infarction, or abnormal intracranial mass lesion. The ventricles are keith l in size. There are likely changes of ocular lens replacement surgeries. There is mild mucosal thick ening in the ethmoid sinuses. The mastoid air cells are normal. IMPRESSION: 1. Stable mild nonspecific cerebral white matter disease, which likely represents chronic small vesse l ischemic disease. Reviewed, dictated and finalized at location A. IMPRESSION: 1. Stable mild nonspecific cerebral white matter disease, which likely represen ts chronic small vessel ischemic disease.
--- NOTE | ~2021-03-06 | XR_ITS ---
EXAMINATION: XR chest 1V portable DATE: 04/01/2021 05:18 INDICATION: Respiratory failure. TECHNIQUE: A single frontal view of the chest was obtained. COMPARISON: Chest single view 03/31/2021 FINDINGS: There are moderate-sized right and small left pleural effusions. There are airspace opaciti es in all lung zones bilaterally. No pneumothorax. Cardiomegaly is noted. The endotracheal tube tip i s 4.6 cm above the mango. The nasogastric tube tip is in the stomach. There is a right internal jugu lar port with tip at superior cavoatrial junction. Partially visualized is a right nephrostomy tube. IMPRESSION: 1. Stable diffuse lung disease, likely predominantly en face dependent atelectasis from semiupright p ositioning with a smaller component of pulmonary edema versus pneumonia. 2. Moderate-sized right and small left pleural effusions with worsening on the right. 3. Cardiomegaly. Reviewed, dictated and finalized at location A. IMPRESSION: 1. Stable diffuse lung disease, likely predominantly en face dependent atelecta sis from semiupright positioning with a smaller component of pulmonary edema ve rsus pneumonia. 2. Moderate-sized right and small left pleural effusions with worsening on the right. 3. Cardiomegaly.
--- NOTE | ~2021-03-06 | XR_ITS ---
XR chest ET placement 03/26/2021 16:25 Indication: Respiratory distress. Postintubation. Procedure: AP portable chest Comparison: Comparison to multiple prior studies sequentially, with oldest reviewed study dated 03/12. Findings: Endotracheal tube tip 2.7 cm above the mango. NG tube in the stomach. There is persistent bilateral airspace disease, right greater than left. Possible small left effusion. No pneumothorax. C entral line tip near the cavoatrial junction. Impression: 1: Persistent bilateral airspace disease which may reflect asymmetric edema or pneumonia. Reviewed, dictated and finalized at location A. Impression: 1: Persistent bilateral airspace disease which may reflect asymmetric edema or pneumonia.
--- NOTE | ~2021-03-06 | US_ITS ---
EXAMINATION: US venous doppler [facility] DATE: 03/07/2021 09:57 INDICATION: Lower limb swelling TECHNIQUE: Grayscale ultrasound images without and with compression and Doppler ultrasound images of the bilateral lower extremity veins were obtained. COMPARISON: CT abdomen and pelvis dated 03/02/2021 FINDINGS: The visualized portions of right common femoral vein, profunda (deep) femoral vein, femoral vein and greater saphenous vein outflow are patent. Visualization of the right popliteal, gastrocnemius, poste rior tibial and peroneal veins is insufficient to allow for diagnostic assessment for venous thrombos is. Extensive subcutaneous edema throughout the visualized right lower limb. There is a large complex fluid collection indicated as being in the region of the right common femoral . Review of prior CT i mages demonstrates no corresponding fluid collection at the proximal right thigh. There is however a similar sized fluid collection in the right pelvis which was interpreted as being a dilated loop of b owel but which could in fact represent a large hematoma or abscess. The visualized portions of left common femoral vein, profunda femoral vein, femoral vein and greater saphenous vein outflow are patent. As on the right, visualization of the left popliteal, gastrocnemiu s, peroneal and posterior tibial veins is insufficient for diagnostic assessment. IMPRESSION: 1. No deep venous thrombosis in the veins of the left or right thighs. Assessment at the more distal to the bilateral popliteal veins is nondiagnostic due to poor visualization. 2. Large complex fluid collection indicated as being in the region of the right common femoral vein b ut suspect this may represent an intraperitoneal fluid collection, possibly hematoma or abscess. Cons ider repeat CT of the abdomen and pelvis with oral contrast. Reviewed, dictated and finalized at location A. IMPRESSION: 1. No deep venous thrombosis in the veins of the left or right thighs. Assessm ent at the more distal to the bilateral popliteal veins is nondiagnostic due to poor visualization. 2. Large complex fluid collection indicated as being in the region of the right common femoral vein but suspect this may represent an intraperitoneal fluid co llection, possibly hematoma or abscess. Consider repeat CT of the abdomen and p nell with oral contrast.
--- NOTE | ~2021-03-06 | XR_ITS ---
EXAMINATION: XR chest 1V portable DATE: 03/12/2021 05:25 INDICATION: Hypoxia TECHNIQUE: frontal view of the chest was obtained. COMPARISON: Chest radiograph dated 03/11/2021 FINDINGS: No significant interval change in patchy airspace opacities throughout both lungs with perihilar pred ominance relatively sparing the subpleural lung. No pneumothorax. Suggestion of tiny bilateral pleura l effusions. The cardiomediastinal silhouette is normal. Right internal jugular central venous port c atheter with distal tip near the superior cavoatrial junction. IMPRESSION: 1. No significant change in extensive bilateral lung disease which could represent pulmonary edema or pneumonia. 2. Tiny bilateral pleural effusions. Reviewed, dictated and finalized at location A. IMPRESSION: 1. No significant change in extensive bilateral lung disease which could repres ent pulmonary edema or pneumonia. 2. Tiny bilateral pleural effusions.
--- NOTE | ~2021-03-06 | XR_ITS ---
EXAMINATION: XR chest 1V portable INDICATION: Congestive heart failure TECHNIQUE: Portable AP chest at 0515 hours COMPARISON: 03/14/2021 FINDINGS: A right internal jugular Port-A-Cath ends with its tip in the proximal right atrium. There is small right pleural effusion. Patchy opacities throughout the right lung persist without significa nt change. Airspace opacities of the left upper lung zone persist but have improved. Cardiomegaly is noted. There is no pneumothorax. IMPRESSION: 1. Stable opacities of the right lung and improving opacities of the left lung, consistent with pneum onia and/or pulmonary edema. 2. Small right pleural effusion. Reviewed, dictated and finalized at location A. IMPRESSION: 1. Stable opacities of the right lung and improving opacities of the left lung, consistent with pneumonia and/or pulmonary edema. 2. Small right pleural effusion.
--- NOTE | ~2021-03-06 | CT_ITS ---
EXAMINATION: CT chest abdomen pelvis wo con DATE: 03/27/2021 08:18 INDICATION: Ischemic bowel. TECHNIQUE: Computed tomography (CT) of the chest, abdomen, and pelvis was performed without intraveno us contrast. Automated exposure control and iterative reconstruction technique were employed. The dos e-length product was 1082.55 mGy-cm. COMPARISON: CT abdomen and pelvis 03/07/2021, PET/CT 09/20/20 FINDINGS: CHEST CT: There are moderate-sized right and small left pleural effusions. There is mild emphysema. There is de pendent atelectasis bilaterally. There is mild atelectasis in right upper lobe. There are groundglass opacities in left upper lobe. Cardiomegaly is noted. No pericardial effusion. There is widespread ed sylvester of the body wall fat and mediastinal fat. The endotracheal tube tip is in expected position above the mango. There is a right internal jugular port with tip in right atrium. There is severe thoraci c spondylosis. ABDOMEN/PELVIS CT: The nasogastric tube tip is in the stomach. Sensitivity for liver masses is poor due to artifacts and the lack of intravenous contrast. There is a 2.5 cm low-attenuation mass in left hepatic lobe, consi stent with a hemangioma. The gallbladder is distended. The spleen, pancreas, and kidneys are normal. There is mild atrophy of right kidney. There is a 2.6 cm cyst in left kidney. There are bilateral per cutaneous nephrostomy tubes in expected position. There are staple lines in the bowel. There are no d ilated loops of bowel. There is a 9.8 x 2.3 cm x 5.4 cm fluid collection in left anterior abdomen. Th ere is a 3.3 x 5.9 cm mass anterior to the rectum on the right. There is widespread edema of the body wall and intra-abdominal fat. There is a small hyperdense hematoma in right anterior abdominal wall in the area of the recent drain. There are no visible enlarged lymph nodes, but sensitivity is decrea sed by extensive edema. There is severe lower lumbar spondylosis. IMPRESSION: 1. 9.8 x 2.3 x 5.4 cm fluid collection in left anterior abdomen, which may be an abscess. 2. Stable peritoneal mass anterior to the rectum on the right, consistent with metastatic disease. 3. Moderate-sized right and small left pleural effusions. 4. Groundglass opacities in left lung upper lobe, consistent with atelectasis versus inflammation or edema. 5. Gallbladder distention, which may be secondary to fasting. Acalculus cholecystitis cannot be exclu ded. Reviewed, dictated and finalized at location B. IMPRESSION: 1. 9.8 x 2.3 x 5.4 cm fluid collection in left anterior abdomen, which may be a n abscess. 2. Stable peritoneal mass anterior to the rectum on the right, consistent with metastatic disease. 3. Moderate-sized right and small left pleural effusions. 4. Groundglass opacities in left lung upper lobe, consistent with atelectasis v ersus inflammation or edema. 5. Gallbladder distention, which may be secondary to fasting. Acalculus cholecy stitis cannot be excluded.
--- NOTE | ~2021-03-06 | XR_ITS ---
EXAMINATION: XR chest 1V portable DATE: 04/05/2021 05:46 INDICATION: Respiratory failure TECHNIQUE: frontal view of the chest was obtained. COMPARISON: Chest radiograph dated 04/04/2021 FINDINGS: Endotracheal tube tip 2.7 cm above the mango. Nasogastric tube extends below the left hemidiaphragm with distal tip collimated off the study. Right internal jugular central venous port catheter with d istal tip at the superior cavoatrial junction. No significant interval change in hazy airspace opacity throughout both lungs consistent with likely small to moderate bilateral pleural effusions with additional fluid seen at the periphery of the righ t mid and left mid and upper lung zones. More dense retrocardiac consolidation the left lower lung zo ne which could represent atelectasis and/or pneumonia. Interstitial pattern appears more pronounced t e[place] on the prior study suggesting development of mild pulmonary edema. No pneumothorax. The cardiomed iastinal silhouette is normal. IMPRESSION: 1. Interval development of mild pulmonary edema. 2. Small to moderate bilateral pleural effusions with associated left basilar atelectasis and/or pneu monia. Reviewed, dictated and finalized at location A. IMPRESSION: 1. Interval development of mild pulmonary edema. 2. Small to moderate bilateral pleural effusions with associated left basilar a telectasis and/or pneumonia.
--- NOTE | ~2021-03-06 | CT_ITS ---
EXAMINATION: CT brain wo con EXAM DATE: 03/08/2021 12:32 INDICATION: Confusion. TECHNIQUE: Spiral CT of the head was performed without contrast. Axial, coronal and sagittal images were reviewed. The dose-length product (DLP) for this examination was 605.33 mGy-cm. The exposure w as tailored according to patient size, and iterative reconstruction (ASIR) was used as additional dos e reduction technique. Comparison is made to prior examination from 01/18/2021. FINDINGS: There is no acute intraparenchymal hemorrhage. No evidence of intraparenchymal brain mass lesion. No evidence of acute infarction. Please note that initial head CT has limited sensitivity f or small or acute infarctions. There is mild to moderate periventricular and subcortical hypodensity, nonspecific but probably related to small vessel ischemic disease. There is moderate prominence of the sulci and ventricles related to cerebral atrophy. There is intracranial carotid arterioscleros is. There are no extra-axial collections. There is no mass effect or midline shift. Patient has hi d bilateral ocular lens surgery. Soft tissue is unremarkable. The visualized sinuses and mastoid ai r cells are well aerated. IMPRESSION: 1. No acute intracranial findings. 2. Chronic age related findings. Reviewed, dictated and finalized at location B.
--- NOTE | ~2021-03-06 | XR_ITS ---
XR abdomen NG/feed tube insert INDICATION: Evaluate NG tube position. TECHNIQUE: Limited KUB perform for evaluating NG tube . COMPARISON: 03/01/2021 FINDINGS: NG tube tip in the stomach. Visualized bowel gas pattern is nonspecific.There are bilatera l percutaneous nephrostomy catheters. There is a central line tip near the cavoatrial junction. IMPRESSION: 1: NG tube tip in the stomach. Reviewed, dictated and finalized at location A.
--- NOTE | ~2021-03-06 | XR_ITS ---
EXAMINATION: XR chest 1V portable DATE: 03/30/2021 04:59 INDICATION: Respiratory failure. TECHNIQUE: A single frontal view of the chest was obtained. COMPARISON: Chest single view 03/29/2021, chest CT 03/27/2021 FINDINGS: There are moderate-sized right and small left pleural effusions. There are airspace opaciti es in all lung zones bilaterally. No pneumothorax. Cardiomegaly is noted. The endotracheal tube tip i s 4.5 cm above the mango. The nasogastric tube tip is in the stomach. There is a right internal jugu lar port with tip at superior cavoatrial junction. Partially visualized are bilateral percutaneous ne phrostomy tubes. IMPRESSION: 1. Stable moderate-sized right and small left pleural effusions. 2. Mildly worsened diffuse lung disease, likely predominantly en face dependent atelectasis from supi ne positioning with a smaller component of pulmonary edema versus pneumonia. 3. Cardiomegaly. Reviewed, dictated and finalized at location A. IMPRESSION: 1. Stable moderate-sized right and small left pleural effusions. 2. Mildly worsened diffuse lung disease, likely predominantly en face dependent atelectasis from supine positioning with a smaller component of pulmonary cinthya a versus pneumonia. 3. Cardiomegaly.
--- NOTE | ~2021-03-06 | CT_ITS ---
EXAMINATION: CT abdomen pelvis wo con DATE: 03/07/2021 15:36 INDICATION: Right abdominal mass. TECHNIQUE: Computed tomography (CT) of the abdomen and pelvis was performed without intravenous contr ast. Automated exposure control and iterative reconstruction technique were employed. The dose-length product was 1076.47 mGy-cm. COMPARISON: CT abdomen and pelvis 03/02/2021, 02/06/21, 09/20/20 FINDINGS: The visualized portions of the lung bases demonstrate mild atelectasis. There are small ple ural effusions, right worse than left. Cardiomegaly is noted. There is a central line tip in right at rium. There is a small pericardial effusion. The liver is normal. The gallbladder is distended. The s pleen, pancreas, and adrenal glands are normal. There is moderate atrophy of right kidney. There is a 3.2 cm cyst in left kidney. There are bilateral percutaneous nephrostomy tubes in expected position. Stool distends the rectum. There is a 3.8 cm endoluminal mass in the sigmoid colon. There is an anas tomosis in the sigmoid colon. Stool distends the colon. There is oral contrast in small bowel. There is dilated proximal small bowel with gradual transition to decompressed distal small bowel. In the ri ght abdomen, there is a 10.2 x 6.9 x 12.7 cm fluid collection. There is a 4.5 x 3.1 cm peritoneal mas s abutting the vagina on the right. There are no pathologically enlarged lymph nodes. There is widesp read edema of the intra-abdominal fat and body wall fat. There is moderate lumbar spondylosis. IMPRESSION: 1. 10.2 x 6.9 x 12.7 cm fluid collection in the right abdomen of uncertain etiology, stable from and new from 02/06/21. The differential diagnosis includes abscess, subacute hematoma, and peritonea l inclusion cyst. Consider percutaneous drainage. 2. Stable peritoneal mass, consistent with metastatic disease. 3. Endoluminal mass in the sigmoid colon with increased activity on prior PET suspicious for malignan cy. 4. Dilated small and large bowel, likely adynamic ileus. 5. Gallbladder distention, which may be secondary to fasting or acute cholecystitis. 6. Anasarca including small pleural effusions, small pericardial effusion, and extensive body wall ed sylvester. Reviewed, dictated and finalized at location A. IMPRESSION: 1. 10.2 x 6.9 x 12.7 cm fluid collection in the right abdomen of uncertain etio logy, stable from 03/02/21 and new from 02/06/21. The differential diagnosis includ es abscess, subacute hematoma, and peritoneal inclusion cyst. Consider percutan eous drainage. 2. Stable peritoneal mass, consistent with metastatic disease. 3. Endoluminal mass in the sigmoid colon with increased activity on prior PET s uspicious for malignancy. 4. Dilated small and large bowel, likely adynamic ileus. 5. Gallbladder distention, which may be secondary to fasting or acute cholecyst itis. 6. Anasarca including small pleural effusions, small pericardial effusion, and extensive body wall edema.
--- NOTE | ~2021-03-06 | XR_ITS ---
EXAMINATION: XR chest 1V portable DATE: 03/11/2021 05:36 INDICATION: Hypoxia TECHNIQUE: frontal view of the chest was obtained. COMPARISON: Chest radiograph dated 03/10/2021 FINDINGS: No significant interval change in extensive bilateral airspace opacities relatively sparing the subpl eural lungs. Skin folds project over the lateral right hemithorax. No pleural effusion or pneumothora x. The cardiomediastinal silhouette is normal. Right internal jugular central venous port catheter wi th distal tip near the superior cavoatrial junction. Partially visualized bilateral percutaneous neph rostomy tubes project over the upper abdomen. IMPRESSION: 1. Persistent extensive bilateral lung disease which could represent pulmonary edema or pneumonia. Reviewed, dictated and finalized at location A.
--- NOTE | ~2021-03-06 | XR_ITS ---
EXAMINATION: XR chest 1V portable EXAM DATE: 04/06/2021 05:31 INDICATION: Resp Failure. TECHNIQUE: Portable AP frontal chest x-ray was obtained. Comparison is made to prior examination from 04/05, 04/04. FINDINGS: Endotracheal tube tip is 3 centimeters above the mango. There is right-sided CT injectabl e portacatheter. There is a nasogastric tube seen with tip collimated off the study, but below the le ft hemidiaphragm. Small to moderate bilateral pleural effusions with adjacent subsegmental compressive atelectasis. Sup erimposed pneumonia not excludable. There is no pneumothorax suspected. The cardiomediastinal silho uette is prominent but magnified on this AP technique. The bones and soft tissues are unremarkable. Over past several days, suspect slight interval increase in the overall opacity of the right lung. IMPRESSION: 1. Line and tube(s) in position. 2. Small to moderate pleural effusions, adjacent opacity at least partly atelectasis. Pneumonia not excludable. Reviewed, dictated and finalized at location A. IMPRESSION: 1. Line and tube(s) in position. 2. Small to moderate pleural effusions, adjacent opacity at least partly atele ctasis. Pneumonia not excludable.
--- NOTE | ~2021-03-06 | XR_ITS ---
EXAMINATION: XR chest 1V portable DATE: 03/14/2021 05:34 INDICATION: Hypoxia TECHNIQUE: frontal view of the chest was obtained. COMPARISON: Chest radiograph dated 03/13/2021 and 03/11/2021 FINDINGS: Continued decrease in patchy bilateral airspace opacities. Trace bilateral pleural effusions. No pneu mothorax. Cardiomegaly. Right internal jugular central venous port catheter with distal tip at the renee perior cavoatrial junction. IMPRESSION: 1. Continued decrease of patchy bilateral airspace opacities consistent with improving pulmonary cinthya a and/or pneumonia. 2. Trace bilateral pleural effusions. 3. Cardiomegaly. Reviewed, dictated and finalized at location A. IMPRESSION: 1. Continued decrease of patchy bilateral airspace opacities consistent with im proving pulmonary edema and/or pneumonia. 2. Trace bilateral pleural effusions. 3. Cardiomegaly.
--- NOTE | ~2021-03-06 | XR_ITS ---
XR chest 1V portable 03/10/2021 05:43 Indication: Hypoxia Procedure: AP portable chest Comparison: Comparison to multiple prior studies sequentially, with oldest reviewed study dated 02/23. Findings: Progression of extensive bilateral airspace disease. Small pleural effusions. No pneumothor ax. Port catheter tip in the SVC. No pneumothorax. There are bilateral percutaneous nephrostomy sandra ters. Impression: 1: Progression of extensive bilateral airspace disease which may represent edema or pneumonia. Reviewed, dictated and finalized at location A. Impression: 1: Progression of extensive bilateral airspace disease which may represent cinthya a or pneumonia.
--- NOTE | ~2021-03-06 | XR_ITS ---
XR chest 1V portable 03/09/2021 23:35 Indication: Hypoxia. Procedure: AP portable chest Comparison: Comparison to multiple prior studies sequentially, with oldest reviewed study dated 02/20. Findings: Portacatheter tip in the SVC. Increased diffuse bilateral airspace disease throughout both lungs. Small pleural effusions. No pneumothorax. Impression: 1: Worsening diffuse bilateral airspace disease which may represent pneumonia or edema. 2: Cardiomegaly. Reviewed, dictated and finalized at location A. Impression: 1: Worsening diffuse bilateral airspace disease which may represent pneumonia o r edema. 2: Cardiomegaly.
--- NOTE | ~2021-03-06 | XR_ITS ---
EXAMINATION: XR chest 1V portable DATE: 04/04/2021 05:20 INDICATION: Respiratory failure TECHNIQUE: frontal view of the chest was obtained. COMPARISON: Chest radiograph dated 04/02/2021 FINDINGS: Endotracheal tube tip 3.1 cm above the mango. Nasogastric tube extends below the left hemidiaphragm with distal tip collimated off the study. Right internal jugular central venous port catheter with d istal tip at the superior cavoatrial junction. Partially visualized bilateral percutaneous nephrostom y tubes projecting over the left and right upper quadrants. Gradient lower lung predominant diffuse ground glass opacities throughout both lungs with blunting at the costophrenic angles consistent with posterior layering small bilateral pleural effusions with as sociated atelectasis and/or pneumonia. No pneumothorax. The cardiomediastinal silhouette is normal. IMPRESSION: 1. Persistent small bilateral pleural effusions with associated basilar atelectasis and/or pneumonia. Reviewed, dictated and finalized at location A. IMPRESSION: 1. Persistent small bilateral pleural effusions with associated basilar atelect asis and/or pneumonia.
--- NOTE | ~2021-03-06 | XR_ITS ---
XR chest 1V portable 03/09/2021 11:09 Indication: Shortness of breath. Hypertension. Procedure: AP portable chest Comparison to multiple prior studies sequentially, with oldest reviewed study dated 02/14/2021. Findings: Patchy bilateral airspace disease, compatible with pneumonia. Small pleural effusions. Card iomegaly. No pneumothorax. No acute osseous abnormality. Port catheter tip in the condyle aspect of t he SVC. Impression: 1: Development of patchy bilateral airspace consolidation, consistent with pneumonia. Reviewed, dictated and finalized at location A. Impression: 1: Development of patchy bilateral airspace consolidation, consistent with pneu monia.
--- NOTE | ~2021-03-06 | XR_ITS ---
EXAMINATION: XR chest 1V portable DATE: 03/29/2021 05:27 INDICATION: Respiratory failure. TECHNIQUE: A single frontal view of the chest was obtained. COMPARISON: Chest single view 03/28/2021, chest CT 03/27/2021 FINDINGS: There are moderate-sized right and small left pleural effusions. There are airspace opaciti es in all lung zones bilaterally, right worse than left. No pneumothorax. Cardiomegaly is noted. The endotracheal tube tip is 4.3 cm above the mango. There is a right internal jugular port with tip at superior cavoatrial junction. The nasogastric tube tip is in the stomach. Partially visualized is a r ight-sided percutaneous nephrostomy tube. IMPRESSION: 1. Diffuse lung disease with slight worsening on the left, consistent with pulmonary edema versus pne umonia. 2. Moderate-sized right and small left pleural effusions with worsening on the right. 3. Cardiomegaly. Reviewed, dictated and finalized at location A. IMPRESSION: 1. Diffuse lung disease with slight worsening on the left, consistent with pulm onary edema versus pneumonia. 2. Moderate-sized right and small left pleural effusions with worsening on the right. 3. Cardiomegaly.
--- NOTE | ~2021-03-06 | XR_ITS ---
EXAMINATION: XR chest 1V portable EXAM DATE: 04/08/2021 05:17 INDICATION: Respiratory failure TECHNIQUE: Portable AP frontal chest x-ray was obtained. Comparison is made to prior examination from 04/06, 04/07. FINDINGS: Endotracheal tube tip is 3 centimeters above the mango. There is right-sided CT injectabl e portacatheter. There is a nasogastric tube seen with tip collimated off the study, but below the le ft hemidiaphragm. Moderate bilateral pleural effusions with adjacent segmental compressive atelectasis. Superimposed ed sylvester and/or pneumonia. There is no pneumothorax suspected. The cardiomediastinal silhouette is promi nent but magnified on this AP technique. The bones and soft tissues are unremarkable. Accounting for differences in technique, there is no significant interval change. IMPRESSION: 1. Line and tube(s) in position. 2. Moderate pleural effusions, adjacent opacity at least partly atelectasis. 3. Diffuse edema and/or pneumonia. Reviewed, dictated and finalized at location A.
--- NOTE | ~2021-03-06 | XR_ITS ---
EXAMINATION: XR chest 1V portable INDICATION: Respiratory failure TECHNIQUE: Portable AP chest at 0507 hours COMPARISON: 03/27/2021 FINDINGS: The endotracheal tube ends approximately 3.5 cm above the mango. The nasogastric tube is f ollowed as far as the stomach. Its tip is beyond the inferior margin of the radiograph. A right inter nal jugular Port-A-Cath ends with its tip in the proximal right atrium. There are moderate size right and small left pleural effusions. Cardiomegaly is noted. There are patchy bilateral airspace opaciti es. Percutaneous nephrostomy tubes are noted. IMPRESSION: 1. Patchy bilateral opacities, consistent with atelectasis versus pneumonia. 2. Moderate-sized right and small left pleural effusions. 3. Cardiomegaly. Reviewed, dictated and finalized at location A.
--- NOTE | ~2021-03-06 | XR_ITS ---
EXAMINATION: XR chest 1V portable DATE: 04/02/2021 05:39 INDICATION: Respiratory failure TECHNIQUE: frontal view of the chest was obtained. COMPARISON: Chest radiograph dated 04/01/2021 FINDINGS: Endotracheal tube tip 6.4 cm above the mango. Nasogastric tube extends below the left hemidiaphragm with distal tip collimated off the study. Right internal jugular central venous port catheter with d istal tip at the superior cavoatrial junction. No significant interval change in airspace opacities scattered throughout both lungs with more dense consolidation with air bronchograms in the left lower lung zone. Slight decrease in size of a small t o moderate right pleural effusion. There is also a small left pleural effusion. No significant interv al change in a small left pleural effusion. No pneumothorax. Cardiomegaly. IMPRESSION: 1. Unchanged small left and decreased small to moderate right pleural effusions. 2. Unchanged superimposed mild bilateral airspace opacities consistent with atelectasis and possible mild pulmonary edema versus pneumonia. 3. Endotracheal tube tip 6.4 cm above the mango. Consider advancement by 4 cm. 4. Cardiomegaly. Reviewed, dictated and finalized at location A. IMPRESSION: 1. Unchanged small left and decreased small to moderate right pleural effusions . 2. Unchanged superimposed mild bilateral airspace opacities consistent with ate lectasis and possible mild pulmonary edema versus pneumonia. 3. Endotracheal tube tip 6.4 cm above the mango. Consider advancement by 4 cm. 4. Cardiomegaly.
--- NOTE | ~2021-03-06 | XR_ITS ---
EXAMINATION: XR chest 1V portable DATE: 03/31/2021 05:28 INDICATION: Respiratory failure. TECHNIQUE: A single frontal view of the chest was obtained. COMPARISON: Chest single view 03/30/2021 FINDINGS: There are small pleural effusions. There are airspace opacities in all lung zones bilateral ly, right worse than left. No pneumothorax. Cardiomegaly is noted. The endotracheal tube tip is 4.7 c m above the mango. The nasogastric tube tip is in the stomach. There is a right internal jugular por t with tip in right atrium. IMPRESSION: 1. Small pleural effusions with improvement on the right. 2. Stable diffuse lung disease, likely predominantly en face dependent atelectasis from semiupright p ositioning with a smaller component of pulmonary edema versus pneumonia. 3. Cardiomegaly. Reviewed, dictated and finalized at location A. IMPRESSION: 1. Small pleural effusions with improvement on the right. 2. Stable diffuse lung disease, likely predominantly en face dependent atelecta sis from semiupright positioning with a smaller component of pulmonary edema ve rsus pneumonia. 3. Cardiomegaly.
--- NOTE | 2021-03-06 12:53 | ED.GENADULT ---
HPI - General Adult General Chief complaint: Unspecified Stated complaint: weakness Time Seen by Provider: 03/06/21 12:34 History of Present Illness HPI narrative: 60 yo female with extensive medical history including CKD, SBO, urosepsis, nephrostomy tubes, abdominal mass presents to the ED for altered mental status and generalized weakness. She was reportedly discharged from the hospital to a fdc about 1 week ago. During that stay she was found to have an SBO and had lysis of adhesions by Dr. Miller. She also grew VRE, however it sounds like they determined that this did not represent true infection. Her daughter reports that when she left the hospital she was alert and active. Since arriving at the fdc her daughter reports that she has had a steady decline. Today on arrival the patient has no complaints. She is very lethargic. History limited by mental status. Related Data Home Medications Medication Instructions Recorded Confirmed docusate sodium [DOK] 100 mg PO BID 02/04/21 02/06/21 ondansetron 4 mg PO Q6H 02/04/21 02/06/21 Besivance 1 drp RIGHT EYE BID 02/08/21 02/08/21 Lotemax 1 drp RIGHT EYE BID 02/08/21 02/08/21 Prolensa 1 drp RIGHT EYE DAILY 02/08/21 02/08/21 Systane Complete 1 drp EACH EYE Q4-6H PRN 02/08/21 02/08/21 bisacodyl 10 mg RECTAL DAILY PRN 03/01/21 magnesium citrate 150 ml PO DAILY PRN 03/01/21 magnesium hydroxide [Milk of mg 03/01/21 Magnesia] sodium phosphates [Fleet Enema] 118 ml RECTAL ONCE 03/01/21 Allergies Allergy/AdvReac Type Severity Reaction Status Date / Time lactose Allergy Vomiting Verified 03/01/21 21:44 lisinopril Allergy Swelling Verified 03/01/21 21:44 hydrocodone AdvReac Intermediate Nausea and Verified 03/01/21 21:44 Vomiting tramadol AdvReac Intermediate Nausea and Verified 03/01/21 21:44 Vomiting codeine AdvReac Mild Nausea and Verified 03/01/21 21:44 Vomiting penicillin G AdvReac Mild Nausea and Verified 03/01/21 21:44 Vomiting Sulfa (Sulfonamide AdvReac Mild Nausea and Verified 03/01/21 21:44 Antibiotics) Vomiting aspirin [From [facility]] AdvReac Nausea Verified 03/01/21 21:44 citric acid AdvReac Nausea Verified 03/01/21 21:44 [From [facility]] lorazepam AdvReac Nausea Verified 03/01/21 21:44 sodium bicarbonate AdvReac Nausea Verified 03/01/21 21:44 [From [facility]] Review of Systems Review of Systems: ROS unobtainable: Yes other (limited by mental status) ENT: Denies sore throat Cardiovascular: Cardiovascular: Denies chest pain Respiratory: Respiratory: Denies dyspnea Gastrointestinal: Gastrointestinal: Denies abdominal pain and Denies nausea Neurologic: Reports weakness PMFSH Past Medical History Medical History Acute on chronic anemia Anemia of chronic disease Anxiety Chronic kidney disease (~03/2020) Baseline creatinine is between 2.0 and 2.40. Congestive heart failure Grade 1 diastolic dysfunction with an EF of 55-60%. Deep vein thrombosis of right lower extremity History of small bowel obstruction Hypertension Metastatic colon cancer in female (~2017) Diagnosis in 2016, status post colectomy with colostomy and adjuvant chemotherapy with FOLFOX. Status post hyperthermic intraperitoneal chemotherapy with debulking surgery in 2017 done in [place]. Status post bilateral nephrostomy tube placement in August 2020 due to extrinsic compression of the ureters from a large tumor, found to be recurrent metastatic cancer. Imaging on 12/21/2020 showed a malignant mass in the sigmoid colon with pelvic lymphadenopathy and multiple peritoneal masses consistent with metastatic disease. She is currently receiving immunotherapy per Dr. Arango. Moderate aortic regurgitation Port-A-Cath in place Surgical History Surgical History History of bone marrow biopsy History of laparotomy (~2017) Debulking s
[2021-03-06 13:08] LABS: Hematocrit 24.2 % (37.0-47.0); Hemoglobin 7.9 g/dL (12.0-15.0); Mean Corpuscular HGB Conc 32.6 g/dl (32-36); Mean Corpuscular Hemoglobin 28.2 pg (26-34); Mean Corpuscular Volume 86.4 fl (80-100); Mean Platelet Volume 10.3 fl (7.4-10.4); Platelet Count Result 122 k/mm3 (150-375); Red Cell Distribution Width 17.9 % (11.5-14.5); White Blood Count 14.9 K/mm3 (4.5-10.0)
--- NOTE | 2021-03-06 13:11 | PC.NURSE ---
Margarita from [facility] to give report, jordan Avila patient has had decreased appetite for the past 2 days and was started on Boost yesterday. Pt was diagnosed with colon cancer in Sep 2020. Jordan Avila patient has had decreased urine output for the past several days. patient is a 2 person transfer and has a wound on her sacrum. Patient last took Percocet at 0530 today.
[2021-03-06 13:19] LABS: Lactic Acid Reflex 0.9 mmol/L (0.7-2.1)
[2021-03-06 13:22] LABS: Alanine Aminotransferase 10 U/L (4-35); Albumin Level 1.8 g/dL (3.5-5.1); Alkaline Phosphatase 112 U/L (38-126); Anion Gap 9 mmol/L (8-16); Aspartate Amino Transferase 30 U/L (14-36); Bilirubin,Total 0.9 mg/dL (0.2-1.3); Blood Urea Nitrogen 60 mg/dL (7-17); Calcium 7.5 mg/dL (8.4-10.2); Carbon Dioxide 14 mmol/L (22-30); Chloride 115 mmol/L (98-107); Estimated CRCL calculation 12 ml/min; Estimated Glomerular Filt Rate 11; Glucose 89 mg/dL (65-105); Potassium 4.5 mmol/L (3.4-5.0); Sodium 138 mmol/L (137-145)
[2021-03-06 13:23] LABS: Add Urine Microscopic? YES; Appearance Urine Turbid (Clear); Bacteria Urine 1+ /hpf; Bilirubin Urine Negative (Negative); Blood Urine 2+ (Negative); Budding Yeast Urine Present /hpf; Color Urine Yellow (Yellow); Glucose Urine UA Negative (Negative); Ketones Urine Negative (Negative); Leukocyte Esterase Ur 3+ LEU/UL (Negative); Mucus Urine Rare /lpf; Nitrate Urine Negative (Negative); Protein Urine 3+ mg/dL (Negative); RBC Urine 51-75 /hpf (0-2); Specific Grav Ur 1.013 (1.001-1.035); Squamous Epithelial Cell Urine Few /hpf (Few); Urobilinogen Urine Negative mg/dL (<2.0); WBC Clumps Urine Present /HPF; WBC Urine >75 /hpf
[2021-03-06 13:32] LABS: INR 1.2; Prothrombin Time 16.2 Seconds (11.1-14.7)
[2021-03-06 13:33] LABS: NT Pro B Type Natriuretic Pept > 35000 pg/mL (5-100); Troponin I 0.299 ng/mL (0.000-0.034)
[2021-03-06 13:33] LABS: Partial Thromboplastin Time 47.6 SECONDS (22.3-36.8)
--- NOTE | 2021-03-06 13:37 | ECG_ITS ---
Measurements Intervals [place] Rate: 88 P: 25 SC: 171 QRS: -65 QRSD: 100 T: 131 QT: 428 QTc: 519 Interpretive Statements SINUS RHYTHM LOW QRS VOLTAGE IN PRECORDIAL LEADS LEFT ANTERIOR FASCICULAR BLOCK ANTERIOR INFARCT, AGE INDETERMINATE INFERIOR INFARCT, AGE INDETERMINATE ST-T WAVE ABNORMALITY IN HIGH LATERAL LEADS- CONSIDER ISCHEMIA BASELINE ARTIFACT- I, II, III, AVR, AVL, AVF, V1-V2, V5-V6 ABNORMAL ECG Electronically Signed On 03-06-2021 14:57:19 CDT by Arnulfo Zaragoza D.O.
[2021-03-06 13:44] LABS: Band Neutrophils Percent 4 % (0-6); Lymphocytes Absolute Manual 0.74 K/mm3 (1.1-4.5); Neutrophils Absolute Manual 14.15 K/mm3 (1.7-7.2); Neutrophils Percent Manual 91 % (46-73); Platelet Estimate Adequate (Adequate); Total Cells Counted 100
[2021-03-06 13:45] LABS: Acanthocytes 1+ (NORMAL); Crenated RBC 1+ (NORMAL); Hypochromasia 2+ (NORMAL)
[2021-03-06 13:46] LABS: Anisocytosis 1+ (NORMAL); Poikilocytosis 1+ (NORMAL)
[2021-03-06] MEDS: SODIUM CHLORIDE 0.9% IV 1,000 ML 999 ML IV CONT (14:34)
--- NOTE | 2021-03-06 14:42 | PC.NURSE ---
EDP at bedside for results.
--- NOTE | 2021-03-06 16:45 | PM.IMHP ---
H&P: HPI History of Present Illness Date/Time: 03/06/21 16:15 Chief Complaint: Weakness. Narrative: This is a very pleasant yet unfortunate 60-year-old female with recurrent metastatic colon cancer, obstructive uropathy secondary to tumor burden status post nephrostomy tubes, chronic kidney disease, anemia, diastolic dysfunction, hypertension, and history of DVT who presented to the emergency department earlier today via EMS from the [facility] for evaluation of weakness. She is known myself and to the hospitalist service with multiple admissions this year with recurrent bowel obstructions and her most recent admission was on February 06, 2021. Unfortunately her bowel obstruction did not resolve with conservative therapy and she underwent adhesiolysis and enterectomy with anastomosis per Dr. Miller on 02/20/2021. Several other issues were noted during that stay including worsening of her renal function secondary to volume depletion versus other, with improvement her creatinine to near baseline. Dr. Canseco (infectious Disease) was consulted for for bacteriuria and funguria and at that time he did not recommend any treatment as she was asymptomatic. Ultimately she was able to be discharged to [facility] for rehab on February 27. In the short period of time since discharge she has declined quite rapidly and is my understanding that she has not had much to eat or drink at the rehab facility. Daughter believes that the patient is just not strong enough to feed herself and does not think that staff has been encouraging her enough. She is so weak that she really is not able to even lift her arm to get a cup to drink water. At the time my evaluation she tells me that she feels great but it is obvious that she is in pain as she grimaces when rolling onto her buttocks as she has at least a decubitus ulcer there. Aside from that she has no specific complaints and specifically denies fever, chills, sweats, chest pain, shortness of breath, nausea, vomiting, and diarrhea. Review of Systems Review of Systems: Narrative: Twelve systems were reviewed with pertinent positives and negatives as per HPI. Somewhat limited as patient does not seem to be trees full and tries to hide the fact that she is in pain. She also seems a bit confused. In addition to denying pain she also denies fever, chills, sweats, chest pain, shortness of breath, nausea, vomiting, and diarrhea. Except as documented, all other systems were reviewed and are negative. [facility] Past Medical History Medical History (Updated 03/06/21 @ 22:59 by Chioma Steele PA-C) Anemia of chronic disease Anxiety Chronic kidney disease (~03/2020) Baseline creatinine is between 2.0 and 2.40. Congestive heart failure Echocardiogram in March 2020 demonstrated grade 1 diastolic dysfunction with an EF of 55-60%. Left ventricular chamber was mildly enlarged. Deep vein thrombosis of right lower extremity History of small bowel obstruction Hypertension Metastatic colon cancer in female (~2017) Diagnosis in 2015, status post colectomy with colostomy and adjuvant chemotherapy with FOLFOX. Status post hyperthermic intraperitoneal chemotherapy with debulking surgery in 2017 done in [place]. Status post bilateral nephrostomy tube placement in August 2020 due to extrinsic compression of the ureters from a large tumor, found to be recurrent metastatic cancer. Imaging on 12/21/2020 showed a malignant mass in the sigmoid colon with pelvic lymphadenopathy and multiple peritoneal masses consistent with metastatic disease. She is currently receiving immunotherapy per Dr. Arango. Moderate aortic regurgitation Port-A-Cath in place Surgical History Surgical History (Updated 03/06/21 @ 22:46 by Chioma Steele PA-C) History of bone marrow biopsy History of laparotomy (~2017) Debulking surgery for metastatic colon cancer. History of laparotomy (02/11/21) Adhesiolysis with enterotomy and anastomosis per Dr. Miller. His
--- NOTE | 2021-03-06 17:56 | ADMGEN ---
This patient, Dina Smith, was admitted to IMU Room 206-02 on 03/06/21 at 1720. Patient/family oriented to hospital policies and general routines including ID bracelet, bed and alarms, visiting hours, pain management, procedures, bathroom and other care routines, personal items, smoking policy, room service/diet, and visiting hours. Information on how to activate the Rapid Response Team has been discussed. Patient/Family are encouraged to report perceived risks to care and to ask questions if they do not understand what they are told or what they should do.
[2021-03-06] MEDS: CENTRAL LINE FLUSH 10 ML IV PUSH ×2 (18:52→23:02)
[2021-03-06 19:59] LABS: Troponin I 0.497 ng/mL (0.000-0.034)
[2021-03-06] MEDS: carvediloL 3.125 MG TABLET PO (21:42)
[2021-03-06] MEDS: diphenhydrAMINE HCL ELIXIR 12.5 MG/5 ML UDC 25 MG PO (21:42)
[2021-03-06] MEDS: FAMOTIDINE 20 MG TABLET PO (21:42)
[2021-03-06 23:27] LABS: Potassium 4.5 mmol/L (3.4-5.0)
[2021-03-06 23:30] LABS: Anion Gap 9 mmol/L (8-16); Blood Urea Nitrogen 62 mg/dL (7-17); Calcium 7.5 mg/dL (8.4-10.2); Carbon Dioxide 14 mmol/L (22-30); Chloride 115 mmol/L (98-107); Glucose 99 mg/dL (65-105); Magnesium 1.8 mg/dL (1.6-2.3); Sodium 138 mmol/L (137-145); Troponin I 0.503 ng/mL (0.000-0.034)
[2021-03-06 23:37] LABS: Estimated CRCL calculation 13 ml/min; Estimated Glomerular Filt Rate 12
[2021-03-07] VITALS (18 sets, daily range): BP systolic 111–124; BP diastolic 63–85; PULSE 63–94; RESP 16–22; TEMP 36.1–36.5; O2SAT 91–100; BMI 27.9
--- NOTE | 2021-03-07 | ECHO_ITS ---
Patient Info Name: Dina Smith Age: 60 years : 1960 Gender: Female Ht: 66 in Wt: 173 lbs BSA: 1.93 m2 HR: 102 bpm BP: 111 / 63 mmHg Heart Rhythm: Sinus Rhythm Technical Quality: Good Exam Date: 03/07/2021 2:17 PM Exam Location: [facility] Pulmonary Exam Room: [facility] [place][note 3] Patient Status: Inpatient Admit Date: 03/06/2021 Staff Ordering Physician: Kavita Bowles MD Acct Exec: Neema Dsouza RDCS Attending Provider: Kavita Bowles MD Referring Physician: Jelena MORALES; Exam Type: CA echo doppler color flow Study Info Indications - chf Complete two-dimensional, color flow and Doppler transthoracic echocardiogram is performed. Summary 1. Complete two-dimensional, color flow and Doppler transthoracic echocardiogram is performed. 2. Moderate left ventricular enlargement with moderate concentric left ventricular hypertrophy. Left ventricular systolic function is moderatel to severely reduced, estimated at 35-40%. Global longitudinal strain is also severely reduced at-10%. There is akinesis of the mid and distal septum, anterior wall, apex and distal lateral wall. Grade 1 diastolic dysfunction is present. 3. Left atrial chamber dimension is moderately enlarged. 4. There is moderate sclerosis of the trileaflet aortic valve with moderate aortic valve regurgitation. 5. There is mild tricuspid valve regurgitation. 6. No pulmonary hypertension, estimated pulmonary arterial systolic pressure is 33 mmHg. 7. There is small pericardial effusion, 1.7 cm posteriorly but minimal anteriorly with no tamponade physiology. Left Ventricle Left ventricular chamber dimension is moderately enlarged. Moderate left ventricular enlargement with moderate concentric left ventricular hypertrophy. Left ventricular systolic function is moderatel to severely reduced, estimated at 35-40%. Global longitudinal strain is also severely reduced at-10%. There is akinesis of the mid and distal septum, anterior wall, apex and distal lateral wall. Grade 1 diastolic dysfunction is present. There is moderately increased left ventricular wall thickness. Left ventricular septal wall motion is normal. The left ventricular diastolic function is grade I diastolic dysfunction. Global longitudinal strain is severely elevated at -10 %. Right Ventricle Right ventricular chamber dimension is normal. Right ventricular systolic function is normal. Left Atria Left atrial chamber dimension is moderately enlarged. Right Atria Right atrial chamber dimension is normal. Aortic Valve The aortic valve is trileaflet. There is moderate aortic valve sclerosis. There is no aortic valve stenosis. There is moderate sclerosis of the trileaflet aortic valve with moderate aortic valve regurgitation. Pulmonic Valve The pulmonic valve is normal. There is no pulmonic valve stenosis. There is trace pulmonic regurgitation. Mitral Valve The mitral valve has normal leaflets. There is no mitral valve stenosis. There is trace mitral valve regurgitation. Tricuspid Valve The tricuspid valve leaflets are normal. There is no significant tricuspid valve stenosis. There is mild tricuspid valve regurgitation. No pulmonary hypertension, estimated pulmonary arterial systolic pressure is 33 mmHg. Pericardium/Pleural The pericardium appears normal. There is small pericardial effusion, 1.7 cm posteriorly but minimal anteriorly with no tamponade physiology. Inferior Vena Cava Normal inferior vena cava with >50% c
[2021-03-07] MEDS: ALBUMIN HUMAN 25% 25 GM/100 ML 100 ML IVPB (01:17)
[2021-03-07] MEDS: LACTATED RINGERS 1,000 ML 80 ML IV CONT ×2 (01:21→16:49)
--- NOTE | 2021-03-07 07:11 | WPDUROPN2 ---
Progress Note: A&P Assessment and Plan (1) Bilateral ureteral obstruction: Code(s): N13.5 - Crossing vessel and stricture of ureter without hydronephrosis Status: Acute (2) Acute on chronic renal failure: Code(s): N17.9 - Acute kidney failure, unspecified; N18.9 - Chronic kidney disease, unspecified Status: Acute Assessment and Plan: Nephrostomy tubes are draining urine bilaterally, albeit with diminished output. I suspect her acute kidney injury is more likely related to medical renal disease as opposed to obstructive uropathy. Get bilateral nephrostogram to ensure proper position of tubes. Subjective Subjective Date/Time Seen: 03/07/21 07:11 Pt. well known to our practice with history of bilateral ureteral obstruction due to rectal cancer invading ureters. Initially, several attempts at stent placement were unsuccessful so obstruction now managed with bilat. percutaneous nephrostomy tubes. Admitted last night with concerns of poor drainage from nephrostomy tubes. Pt. not able to give a reliable history this morning. She denies, abdominal pain nausea vomiting. Review of Systems Review of Systems: ROS unobtainable: Yes unobtainable due to mental status Exam Const: General: no acute distress Resp: Effort & Inspection: normal respiratory effort GI: Inspection: non-distended GI Palp: No abdominal tenderness and No Guarding due to palpation present (GI) Auscultation: normal bowel sounds Objective Data Vital Signs Vital Signs: Vital Signs - 24 hr 03/06/21 12:37 03/06/21 12:38 03/06/21 12:45 Temperature 97.6 F Pulse Rate 87 88 84 Respiratory Rate 15 19 9 L Blood Pressure 114/87 Pulse Oximetry 93 03/06/21 12:46 03/06/21 12:48 03/06/21 13:26 Temperature Pulse Rate 88 84 80 Respiratory Rate 12 10 L Blood Pressure 114/82 Pulse Oximetry 03/06/21 13:30 03/06/21 13:31 03/06/21 13:45 Temperature Pulse Rate 79 83 Respiratory Rate 14 13 25 H Blood Pressure 111/82 Pulse Oximetry 03/06/21 14:00 03/06/21 14:41 03/06/21 14:45 Temperature Pulse Rate 86 89 84 Respiratory Rate 13 17 18 Blood Pressure Pulse Oximetry 03/06/21 15:00 03/06/21 15:02 03/06/21 15:15 Temperature Pulse Rate 92 90 81 Respiratory Rate 21 H 17 18 Blood Pressure 120/98 H Pulse Oximetry 03/06/21 15:30 03/06/21 15:31 03/06/21 15:45 Temperature Pulse Rate 81 79 82 Respiratory Rate 17 19 12 Blood Pressure 133/94 H Pulse Oximetry 03/06/21 16:00 03/06/21 16:01 03/06/21 16:15 Temperature Pulse Rate 93 85 77 Respiratory Rate 18 20 11 L Blood Pressure 125/90 Pulse Oximetry 03/06/21 16:34 03/06/21 17:25 03/06/21 17:28 Temperature 97.1 F L Pulse Rate 79 80 81 Respiratory Rate 14 18 Blood Pressure 115/74 Pulse Oximetry 92 03/06/21 18:00 03/06/21 18:09 03/06/21 20:00 Temperature Pulse Rate 70 90 116 H Respiratory Rate Blood Pressure Pulse Oximetry 03/06/21 21:42 03/06/21 22:00 03/06/21 23:24 Temperature 97.3 F L Pulse Rate 86 76 102 H Respiratory Rate 16 Blood Pressure 115/80 Pulse Oximetry 100 03/07/21 00:00 03/07/21 02:00 03/07/21 04:00 Temperature 97.3 F L Pulse Rate 73 71 63 Respiratory Rate 20 Blood Pressure 118/79 Pulse Oximetry 95 03/07/21 06:00 Temperature Pulse Rate 72 Respiratory Rate Blood Pressure Pulse Oximetry Intake/Output Intake/Output: Intake & Output 03/04/21 03/05/21 03/06/21 03/07/21 23:59 23:59 23:59 23:59 Intake Total 360 Balance 360 Meds/Results Medications: Active Medications Generic Name Dose Route Start Last Admin Trade Name Freq PRN Reason Stop Dose Admin Acetaminophen 650 mg 03/06/21 20:24 Acetaminophen 325 Mg Tablet PO Q4H PRN Pain Rated 4-6 Carvedilol 3.125 mg 03/06/21 21:00 03/06/21 21:42 Carvedilol 3.125 Mg Tablet PO 3.125 mg Q12HR BORIS Administration Diphenhydramine
--- NOTE | 2021-03-07 07:37 | PM.IMPN ---
Progress Note: A&P Assessment and Plan (1) Acute on chronic renal failure: Code(s): N17.9 - Acute kidney failure, unspecified; N18.9 - Chronic kidney disease, unspecified Status: Acute (2) Anasarca: Code(s): R60.1 - Generalized edema Status: Acute (3) Protein calorie malnutrition: Code(s): E46 - Unspecified protein-calorie malnutrition Status: Acute (4) Generalized weakness: Code(s): R53.1 - Weakness Status: Acute (5) Confusion: Code(s): R41.0 - Disorientation, unspecified Status: Acute (6) Abnormal urinalysis: Code(s): R82.90 - Unspecified abnormal findings in urine Status: Acute (7) Elevated troponin: Code(s): R77.8 - Other specified abnormalities of plasma proteins Status: Acute (8) Decubital ulcer: Code(s): L89.90 - Pressure ulcer of unspecified site, unspecified stage Status: Acute (9) Metastatic colon cancer in female: Onset Date: ~2017 Code(s): C18.9 - Malignant neoplasm of colon, unspecified Status: Chronic (10) Congestive heart failure: Qualifiers: Heart failure chronicity: chronic Heart failure type: diastolic Qualified Code(s): I50.32 - Chronic diastolic (congestive) heart failure Code(s): I50.9 - Heart failure, unspecified Status: Chronic Additional Plan 03/06/21 The patient presents today for evaluation of weakness. In the short time since her discharge her creatinine has jumped to 4.90, up from 1.90 just 5 days ago. She looks very dehydrated and daughter relates that she has not been eating or drinking causing her to become more and more weak. Her nephrostomy tubes seem to be draining appropriately but it looks like her urine output has declined quite a bit due to the dehydration. Urinalysis once again is abnormal and it is noted that a urinalysis done a couple of weeks ago grew out Linette albicans as well as VRE though it was recommended not to treat as she was asymptomatic. She was started on ceftriaxone in the emergency department which I will continue with that for now given elevated white blood cell count and decline. Unfortunately the patient has had a progressive decline and I am not certain that she is going to improve much however she and her daughter are holding out hope though I do not think that is very realistic. She is very malnourished and her marked anasarca is likely a result of malnutrition in addition to volume overload from recurrent hospitalizations in which she was hydrated. Her kidneys are also failing leading to worsening volume status. I am wondering if it may be beneficial to give her a dose of albumin to see if we can pulled interstitial fluid back into the vascular space and I guess I will try that x1. Family is requesting consultation with nephrology and urology for their input as well. Previous echocardiogram showed diastolic dysfunction but again we cannot diurese her at this time. Her troponins are elevated but I suspect this is due to volume overload in the setting of renal failure as she is not having any chest pain. Check venous Doppler ultrasounds to rule out DVT given edema. Wound nurse consulted given decubitus ulcer an area of dehiscence on her abdominal incision. I spent at least 45 minutes with the patient her daughter simply discussing history, current concerns, and plan of care. 03/07/21 IR successfully changed clogged nephrostomy tube today. Both are currently patent in proper position. Patient incidentally noted to have a fluid collection on imaging. CT abdomen pelvis with p.o. contrast ordered after discussion with radiology. Fluid collection could possibly be abscess order placed for IR to drain and sent for cultures. Will consult Dr. dawn if aspirated material appears to be purulent. Antibiotics amplified add metronidazole for GI coverage. Nephrology following patient is with anasarca and renal failure, recommendations appreci
[2021-03-07] MEDS: carvediloL 3.125 MG TABLET PO ×2 (09:59→22:00)
[2021-03-07] MEDS: FAMOTIDINE 20 MG TABLET PO ×2 (09:59→22:01)
[2021-03-07] MEDS: SILVERGEL (ELTA) 45 ML 1 APPLIC TOPICAL (09:59)
[2021-03-07] MEDS: CENTRAL LINE FLUSH 10 ML IV PUSH ×3 (10:02→22:01)
--- NOTE | 2021-03-07 10:02 | PM.CNCAR ---
Assessment and Plan Additional Plan 1-mild elevation of troponin. 2-acute kidney injury on chronic. -metastatic colon cancer. -diastolic dysfunction. -history of hypertension. This patient presents to the hospital with weakness and not eating or drinking. She does have evidence of acute kidney injury likely related to dehydration. She denies chest pain or shortness of breath. EKG does not show ischemia. Troponins mildly elevated and flat. Her last echo March 2020 shows normal LV systolic function and evidence of diastolic dysfunction. Patient is edematous but denies shortness of breath. She has low albumin of 1.8. Recommend at this time conservative management.. No indication that this is acute coronary syndrome.. Recommend palliative care consultation and hospice. History of Present Illness History of Present Illness Consult date/time: date of visit: 03/07/21 10:02 This 60-year-old female with past medical history of hypertension,recurrent metastatic colon cancer, obstructive uropathy secondary to tumor burden status post nephrostomy tubes, chronic kidney disease, anemia, diastolic dysfunction, hypertension, and history of DVT who presented to the emergency department earlier today via EMS from the [facility] for evaluation of weakness.multiple admissions this year with recurrent bowel obstructions and her most recent admission was on February 06, 2021. Unfortunately her bowel obstruction did not resolve with conservative therapy and she underwent adhesiolysis and enterectomy with anastomosis per Dr. Miller on 02/20/2021. Apparently patient's daughter states the patient is too weak to feed herself. Cardiology consult was called for CHF and elevated troponins. Patient is lying in bed comfortably. No acute distress. She denies chest pain or shortness of breath. She does have bilateral lower extremity edema. Patient seems to be very weak and fragile and talks very slowly. She is somnolent but answers questions slowly. Heart rhythm on telemetry shows sinus rhythm. Serum albumin 1.8 White cell count 14.9 K, hemoglobin 7.9, platelet count 122k. Serum creatinine 4.9 and baseline around 2, troponin 0.3 and 0.5 EKG revealed analyze vessel shows sinus rhythm, septal Q-waves, poor R-wave progression, left axis deviation. T inversion leads 1 and aVL. Last echo March 2020 ejection fraction 55%, moderate aortic regurg and mild mitral, tricuspid regurgitation Requesting physician: Kavita Bowles MD Consult reason: Other (Elevated troponin) Reason For Visit: acute on chronic renal failure,generalized weaknes Review of Systems Constitutional: Constitutional: Denies chills, Reports fatigue, Denies fever(s), Reports lethargy, Denies poor appetite and Reports weakness Eyes: Eyes: Denies eye discharge, Denies loss of vision, Denies eye pain and Denies photophobia ENT: Denies dizziness, Denies epistaxis, Denies nasal congestion and Denies sore throat Cardiovascular: Cardiovascular: Denies chest pain, Denies syncope, Reports pedal edema, Reports leg edema, Denies palpitations, Denies dyspnea, Denies dyspnea on exertion and Denies orthopnea Respiratory: Respiratory: Denies cough, Denies dyspnea, Denies dyspnea on exertion and Denies wheezing Gastrointestinal: Gastrointestinal: Denies abdominal pain, Denies diarrhea, Denies nausea and Denies vomiting Genitourinary: Genitourinary: Denies genital lesions and Denies flank pain Musculoskeletal: Musculoskeletal: Denies arthralgias, Denies joint swelling and Denies numbness Integumentary/Breasts: Skin/Breast: Reports dry skin, Denies pruritus and Denies rash Neurologic: Denies dizziness, Denies syncope, Denies loss of vision and Denies numbness Psychiatric: Psychiatric: Denies anxiety and Denies depression Endocrine: Endocrine: Denies cold intolerance, Denies heat intolerance and Denies palpitations Hematologic/Lymphatic: Hematologic/Lymphatic: Denies easy bleeding and Denies easy
[2021-03-07] MEDS: DOCUSATE SODIUM 100 MG CAPSULE PO ×2 (10:03→16:51)
[2021-03-07] MEDS: metroNIDAZOLE 500 MG/ISO 100ML 500 MG/100 ML BAG 100 MG IVPB (12:25)
[2021-03-07] MEDS: CIPROFLOXACIN HCL 0.3% OP SOLN 2.5 ML BTL 1 DROP RIGHT EYE ×2 (12:33→22:01)
[2021-03-07] MEDS: KETOROLAC 0.5% OP SOLN 5 ML BOTTLE 1 DROP RIGHT EYE (12:34)
--- NOTE | 2021-03-07 12:53 | PM.CNNEP ---
Assessment and Plan Assessment and plan (1) Acute on chronic renal failure: Code(s): N17.9 - Acute kidney failure, unspecified; N18.9 - Chronic kidney disease, unspecified Status: Acute Assessment and Plan: The patient has chronic kidney disease. This is probably related to her recurrent obstruction. Longstanding hypertension may be playing a role as well. Her baseline creatinine is around 2.0. He also has acute kidney injury. She was seen by Urology and felt not to have obstruction. Most likely she is dehydrated. She has not been eating or drinking at all at home. She is getting ivfs now (2) Bilateral ureteral obstruction: Code(s): N13.5 - Crossing vessel and stricture of ureter without hydronephrosis Status: Acute Assessment and Plan: The patient has percutaneous nephrostomies in place (3) Protein calorie malnutrition: Code(s): E46 - Unspecified protein-calorie malnutrition Status: Acute Assessment and Plan: The patient is not eating very well at all. In addition she has metastatic cancer. (4) Anasarca: Code(s): R60.1 - Generalized edema Status: Acute Assessment and Plan: This is most likely caused by low albumin but also may have some venous or lymphatic obstruction from the colon cancer. History of Present Illness Reason for Consult Consult date: 03/07/21 Chief Complaint Chief complaint: acute on chronic renal failure,generalized weaknes History of Present Illness Narrative: Dina is a very pleasant 60-year-old lady who has multiple medical problems including chronic kidney disease with a baseline creatinine of around 2.0, metastatic colon cancer, recurrent obstruction of both ureters and now has nephrostomy tubes, aortic regurgitation, hypertension, DVT in the right lower extremity, congestive heart failure, anxiety, anemia. The patient was in hospital for while earlier this month. She had renal failure which responded to fluids and to the bilateral percutaneous nephrostomy tubes. Her creatinine ended up stabilizing at around 2.0. She was discharged to rehab center and has been getting physical therapy. She apparently has been gradually weaker. She has not been eating much to or drinking much according to the staff and to the family. She says she is just not hungry. She does not have any nausea or vomiting. No belly pain with eating. No diarrhea. Staff and family have been encouraged her to eat but she has not been able to. Recently she became even more weak. She was sent over to the emergency room here. Here blood work was done and she had a creatinine that was very high so she was admitted. She has been given IV fluids overnight. She says she feels about the same today as yesterday, maybe a little bit better. She denies nausea vomiting diarrhea. No chest pain or shortness of breath. Review of Systems Constitutional: Constitutional: Reports no additional constitutional complaints Eyes: Eyes: Reports no additional eye complaints ENT: Reports system reviewed and no additional complaints, except as documented Cardiovascular: Cardiovascular: Reports no additional cardiovascular complaints Respiratory: Respiratory: Reports no additional respiratory complaints Gastrointestinal: Gastrointestinal: Reports no additional gastrointestinal complaints Genitourinary: Genitourinary: Reports no additional female genitourinary complaints Musculoskeletal: Musculoskeletal: Reports no additional musculoskeletal complaints Integumentary/Breasts: Skin/Breast: Reports system reviewed and no additional complaints, except as docu Neurologic: Reports system reviewed and no additional complaints, except as documented Psychiatric: Psychiatric: Reports no additional psychiatric complaints Endocrine: Endocrine: Reports no additional endocrine complaints [facility] Past Medical History Medical History (Reviewed 03/07/21 @ 12:58 by Yehuda Brown,
[2021-03-08] VITALS (18 sets, daily range): BP systolic 106–117; BP diastolic 64–79; PULSE 65–95; RESP 16–24; TEMP 35.6–36.6; O2SAT 96–100
[2021-03-08] MEDS: SILVERGEL (ELTA) 45 ML 1 APPLIC TOPICAL (01:45)
[2021-03-08 04:48] LABS: Eosinophil Urine None Seen % (None Seen)
[2021-03-08 05:01] LABS: Creatinine Urine 52.5 mg/dL; Total Protein Urine Random 131 mg/dL
[2021-03-08 06:18] LABS: Sodium Urine Random 43 meq/L
[2021-03-08] MEDS: CENTRAL LINE FLUSH 10 ML IV PUSH ×3 (06:37→22:44)
[2021-03-08 06:44] LABS: Basophils Percent Auto 0.2 % (0.2-1.2); Eosinophils Absolute Auto 0.1 K/mm3 (0-0.3); Eosinophils Percent Auto 0.6 % (0-4.4); Immature Granulocyte Absolute 0.15 K/mm3 (0.00-0.031); Immature Granulocyte Percent A 1.3 % (0-0.5); Immature Platelet Fraction Pct 5.3 % (0.9-11.2); Lymphocytes Absolute Auto 0.61 K/mm3 (0.9-3.2); Lymphocytes Percent Auto 5.4 % (18.3-44.2); Mean Corpuscular HGB Conc 32.8 g/dl (32-36); Mean Corpuscular Hemoglobin 27.8 pg (26-34); Mean Corpuscular Volume 84.8 fl (80-100); Mean Platelet Volume 11.4 fl (7.4-10.4); Monocytes Absolute Auto 0.6 K/mm3 (0.1-0.6); Monocytes Percent Auto 5.3 % (2.6-8.5); Neutrophils Absolute Auto 9.8 K/mm3 (1.3-6.7); Neutrophils Percent Auto 87.2 % (45.5-73.1); Nucleated Red Blood Cells Perc 0.4 % (0.0-0.2); Platelet Count Result 41 k/mm3 (150-375); Red Blood Count 2.23 M/mm3 (4.2-5.4); Red Cell Distribution Width 18.3 % (11.5-14.5); White Blood Count 11.2 K/mm3 (4.5-10.0)
[2021-03-08 06:53] LABS: Hematocrit 18.9 % (37.0-47.0); Hemoglobin 6.2 g/dL (12.0-15.0)
[2021-03-08 06:54] LABS: Hypochromasia 2+ (NORMAL); Platelet Estimate Decreased (Adequate)
[2021-03-08 06:55] LABS: Crenated RBC 1+ (NORMAL); Ovalocytes 1+ (NORMAL)
[2021-03-08 07:01] LABS: Albumin Level 1.6 g/dL (3.5-5.1); Anion Gap 6 mmol/L (8-16); Blood Urea Nitrogen 63 mg/dL (7-17); Calcium 7.2 mg/dL (8.4-10.2); Carbon Dioxide 16 mmol/L (22-30); Chloride 115 mmol/L (98-107); Estimated CRCL calculation 13 ml/min; Estimated Glomerular Filt Rate 12; Glucose 69 mg/dL (65-105); Phosphorus 5.2 mg/dL (2.5-4.5); Potassium 4.3 mmol/L (3.4-5.0); Sodium 137 mmol/L (137-145)
--- NOTE | 2021-03-08 07:45 | WPDUROPN2 ---
Progress Note: A&P Assessment and Plan (1) Bilateral ureteral obstruction: Code(s): N13.5 - Crossing vessel and stricture of ureter without hydronephrosis Status: Acute Assessment and Plan: Nephrostograms normal bilaterally - tubes appropriately positioned and draining well. Subjective Subjective Date/Time Seen: 03/08/21 07:45 Somnolent, no complaints Review of Systems Cardiovascular: Cardiovascular: Denies chest pain, Denies lightheadedness, Denies palpitations and Denies dyspnea Respiratory: Respiratory: Denies dyspnea Gastrointestinal: Gastrointestinal: Denies diarrhea, Denies nausea and Denies vomiting Genitourinary: Genitourinary: Denies hematuria and Denies dysuria Endocrine: Endocrine: Denies palpitations Exam Const: General: no acute distress Resp: Effort & Inspection: normal respiratory effort GI: Inspection: non-distended GI Palp: No abdominal tenderness and No Guarding due to palpation present (GI) Auscultation: normal bowel sounds Objective Data Vital Signs Vital Signs: Vital Signs - 24 hr 03/07/21 07:47 03/07/21 08:00 03/07/21 10:00 Temperature 96.9 F L Pulse Rate 78 78 89 Respiratory Rate 20 Blood Pressure 111/63 Pulse Oximetry 03/07/21 11:52 03/07/21 12:00 03/07/21 13:53 Temperature 96.9 F L Pulse Rate 92 81 Respiratory Rate 22 H Blood Pressure 124/85 Pulse Oximetry 99 91 03/07/21 14:00 03/07/21 16:00 03/07/21 16:46 Temperature 97.3 F L Pulse Rate 74 75 78 Respiratory Rate 22 H Blood Pressure 113/75 Pulse Oximetry 98 03/07/21 18:00 03/07/21 19:48 03/07/21 20:00 Temperature 97.7 F Pulse Rate 94 85 85 Respiratory Rate 18 18 Blood Pressure 116/68 Pulse Oximetry 100 100 03/07/21 22:00 03/07/21 23:25 03/08/21 00:00 Temperature 97.5 F L Pulse Rate 74 87 87 Respiratory Rate 16 16 Blood Pressure 120/78 Pulse Oximetry 100 100 03/08/21 02:00 03/08/21 04:00 03/08/21 04:22 Temperature 97.3 F L Pulse Rate 81 84 84 Respiratory Rate 18 18 Blood Pressure 115/70 Pulse Oximetry 100 100 03/08/21 06:00 Temperature Pulse Rate 72 Respiratory Rate Blood Pressure Pulse Oximetry Intake/Output Intake/Output: Intake & Output 03/05/21 03/06/21 03/07/21 03/08/21 23:59 23:59 23:59 23:59 Intake Total 1510 1050 Output Total 180 180 Balance 1330 870 Meds/Results Medications: Active Medications Generic Name Dose Route Start Last Admin Trade Name Freq PRN Reason Stop Dose Admin Acetaminophen 650 mg 03/06/21 20:24 Acetaminophen 325 Mg Tablet PO Q4H PRN Pain Rated 4-6 Artificial Tears 1 drop 03/06/21 20:24 Artificial Tears Op Soln 15 Ml Bottle EACH EYE Q4-6H PRN Dry Eyes Carvedilol 3.125 mg 03/06/21 21:00 03/07/21 22:00 Carvedilol 3.125 Mg Tablet PO 3.125 mg Q12HR BORIS Administration Ciprofloxacin 1 drop 03/07/21 09:55 03/07/21 22:01 Ciprofloxacin Hcl 0.3% Op Soln 2.5 Ml Btl RIGHT EYE 1 drop Q12HR BORIS Administration Diphenhydramine HCl 25 mg 03/06/21 20:24 03/06/21 21:42 Diphenhydramine Hcl Elixir 12.5 Mg/5 Ml Udc PO 25 mg Q6H PRN Administration Pain Rated 1-3 Docusate Sodium 100 mg 03/07/21 09:00 03/07/21 16:51 Docusate Sodium 100 Mg Capsule PO 100 mg BID BORIS Administration Famotidine 20 mg 03/06/21 21:00 03/07/21 22:01 Famotidine 20 Mg Tablet PO 20 mg Q12HR BORIS Administration Heparin Sodium (Beef Lung) 50 units 03/07/21 09:00 03/07/21 10:03 Heparin Flush 50 Units/5 Ml Syringe IV PUSH 50 units QAM BORIS Administration Heparin Sodium (Beef Lung) 50 units 03/06/21 13:07 Heparin Flush 50 Units/5 Ml Syringe IV PUSH PRN PRN after intermittent infusion Heparin Sodium (Beef Lung) 50 units 03/06/21 13:07 Heparin Flush 50 Units/5 Ml Syringe IV PUSH PRN PRN after blood draws Heparin Sodium (Porcine) 500 units 03/06/21 13:07 Heparin Sod Flush 5
[2021-03-08] MEDS: LACTATED RINGERS 1,000 ML 80 ML IV CONT (08:59)
[2021-03-08] MEDS: carvediloL 3.125 MG TABLET PO ×2 (09:04→22:40)
[2021-03-08] MEDS: DOCUSATE SODIUM 100 MG CAPSULE PO (09:04)
[2021-03-08] MEDS: FAMOTIDINE 20 MG TABLET PO ×2 (09:04→22:39)
[2021-03-08] MEDS: CIPROFLOXACIN HCL 0.3% OP SOLN 2.5 ML BTL 1 DROP RIGHT EYE ×2 (09:04→22:40)
[2021-03-08] MEDS: KETOROLAC 0.5% OP SOLN 5 ML BOTTLE 1 DROP RIGHT EYE (09:05)
--- NOTE | 2021-03-08 09:33 | P.PNIM_ITS ---
Progress Note: A&P Assessment and Plan (1) Acute on chronic renal failure: Code(s): N17.9 - Acute kidney failure, unspecified; N18.9 - Chronic kidney disease, unspecified Status: Acute (2) Anasarca: Code(s): R60.1 - Generalized edema Status: Acute (3) Protein calorie malnutrition: Code(s): E46 - Unspecified protein-calorie malnutrition Status: Acute (4) Generalized weakness: Code(s): R53.1 - Weakness Status: Acute (5) Confusion: Code(s): R41.0 - Disorientation, unspecified Status: Acute (6) Abnormal urinalysis: Code(s): R82.90 - Unspecified abnormal findings in urine Status: Acute (7) Elevated troponin: Code(s): R77.8 - Other specified abnormalities of plasma proteins Status: Acute (8) Decubital ulcer: Code(s): L89.90 - Pressure ulcer of unspecified site, unspecified stage Status: Acute (9) Metastatic colon cancer in female: Onset Date: ~2017 Code(s): C18.9 - Malignant neoplasm of colon, unspecified Status: Chronic (10) Congestive heart failure: Qualifiers: Heart failure type: diastolic Heart failure chronicity: chronic Qualified Code(s): I50.32 - Chronic diastolic (congestive) heart failure Code(s): I50.9 - Heart failure, unspecified Status: Chronic Additional Plan 03/06/21 The patient presents today for evaluation of weakness. In the short time since her discharge her creatinine has jumped to 4.90, up from 1.90 just 5 days ago. She looks very dehydrated and daughter relates that she has not been eating or drinking causing her to become more and more weak. Her nephrostomy tubes seem to be draining appropriately but it looks like her urine output has declined quite a bit due to the dehydration. Urinalysis once again is abnormal and it is noted that a urinalysis done a couple of weeks ago grew out Linette albicans as well as VRE though it was recommended not to treat as she was asymptomatic. She was started on ceftriaxone in the emergency department which I will continue with that for now given elevated white blood cell count and decline. Unfortunately the patient has had a progressive decline and I am not certain that she is going to improve much however she and her daughter are holding out hope though I do not think that is very realistic. She is very malnourished and her marked anasarca is likely a result of malnutrition in addition to volume overload from recurrent hospitalizations in which she was hydrated. Her kidneys are also failing leading to worsening volume status. I am wondering if it may be beneficial to give her a dose of albumin to see if we can pulled interstitial fluid back into the vascular space and I guess I will try that x1. Family is requesting consultation with nephrology and urology for their input as well. Previous echocardiogram showed diastolic dysfunction but again we cannot diurese her at this time. Her troponins are elevated but I suspect this is due to volume overload in the setting of renal failure as she is not having any chest pain. Check venous Doppler ultrasounds to rule out DVT given edema. Wound nurse consulted given decubitus ulcer an area of dehiscence on her abdominal incision. I spent at least 45 minutes with the patient her daughter simply discussing history, current concerns, and plan of care. 03/07/21 IR successfully changed clogged nephrostomy tube today. Both are c urrently patent in proper position. Patient incidentally noted to have a fluid collection on imaging. CT abdomen pelvis with p.o. contrast ordered after discussion with radiology. Fluid collection could p
[2021-03-08] MEDS: TUBING, BLOOD PLUM PUMP TUBING 1 EACH XX (13:27)
[2021-03-08] MEDS: SODIUM CHLORIDE 0.9% IV 250 ML 30 ML IV CONT (13:27)
--- NOTE | 2021-03-08 13:40 | PM.PNNEP ---
Progress Note: A&P Assessment and Plan (1) Acute on chronic renal failure: Code(s): N17.9 - Acute kidney failure, unspecified; N18.9 - Chronic kidney disease, unspecified Status: Acute Assessment and Plan: The patient has chronic kidney disease. This is probably related to her recurrent obstruction. Longstanding hypertension may be playing a role as well. Her baseline creatinine is around 2.0. He also has acute kidney injury. She was seen by Urology and felt not to have obstruction. The patient could have dehydration. She has 3rd spacing because of the low albumin. Her hemoglobin dropped to 6.2. She could be having GI bleeding, or possibly the fluid collection seen on ct is a hematoma. TXM and transfusion being done. perhaps the anemia is contributing to the nevaeh. blood cultures from 03/06 are growing B fragilis. this may be why she is Encephalopathic. This makes [address] hematoma is what the source of this infection. I talked with Dr. Bowles. The hematoma is going to be drained. Id and surgery being consulted as well. This may be part of why the creatinine is so high as well. Once this is drained hopefully the renal function will start to improve. bicarbonate level is 16. Will change IV fluids to D5W with 3 amps of bicarb. Albumin is only 1.6. Will try some albumin and diuretics. (2) Bilateral ureteral obstruction: Code(s): N13.5 - Crossing vessel and stricture of ureter without hydronephrosis Status: Acute Assessment and Plan: The patient has percutaneous nephrostomies in place (3) Protein calorie malnutrition: Code(s): E46 - Unspecified protein-calorie malnutrition Status: Acute Assessment and Plan: The patient is not eating very well at all. In addition she has metastatic cancer. (4) Anasarca: Code(s): R60.1 - Generalized edema Status: Acute Assessment and Plan: This is most likely caused by low albumin but also may have some venous or lymphatic obstruction from the colon cancer. Subjective Date/time seen: 03/08/21 13:40 Interval history: Dina is sleepy today. She answers yes no questions only. Her daughter Angela is in the room. We discussed at length. She says that Dina was like this before but responded to antibiotics. Review of Systems Cardiovascular: Cardiovascular: Reports no additional cardiovascular complaints Respiratory: Respiratory: Reports no additional respiratory complaints Gastrointestinal: Gastrointestinal: Reports no additional gastrointestinal complaints Genitourinary: Genitourinary: Reports no additional female genitourinary complaints Exam Narrative: Exam Narrative: WDWN female, sleepy but in no acute distress. skin no rash Or subcu nodules head ncat lungs clear Bilaterally cor reg no rub abd BS+ nontender and soft ext 2+ diffuse edema. neuro: sleepy and poorly responsive. Objective Data Vital Signs Vital Signs: Vital Signs - 24 hr 03/07/21 13:53 03/07/21 14:00 03/07/21 16:00 Temperature Pulse Rate 74 75 Respiratory Rate Blood Pressure Pulse Oximetry 91 03/07/21 16:46 03/07/21 18:00 03/07/21 19:48 Temperature 36.3 C L 36.5 C Pulse Rate 78 94 85 Respiratory Rate 22 H 18 Blood Pressure 113/75 116/68 Pulse Oximetry 98 100 03/07/21 20:00 03/07/21 22:00 03/07/21 23:25 Temperature 36.4 C L Pulse Rate 85 74 87 Respiratory Rate 18 16 Blood Pressure 120/78 Pulse Oximetry 100 100 03/08/21 00:00 03/08/21 02:00 03/08/21 04:00 Temperature Pulse Rate 87 81 84 Respiratory Rate 16 18 Blood Pressure Pulse Oximetry 100 100 03/08/21 04:22 03/08/21 06:00 03/08/21 08:00 Temperature 36.3 C L 36.0 C L Pulse Rate 84 72 95 Respiratory Rate 18 20 Blood Pressure 115/70 114/71 Pulse Oximetry 100 96 03/08/21 10:00 03/08/21 12:00 03/08/21 13:25 Temperature 36.3 C L 36.1 C L Pulse Rate 75 81 80 Respirator
--- NOTE | 2021-03-08 14:08 | PM.IMPN ---
Subjective Date/time seen: 03/08/21 14:08 Patient is confused today. Objective Data Vital Signs Vital Signs: Vital Signs - 24 hr 03/07/21 16:00 03/07/21 16:46 03/07/21 18:00 Temperature 97.3 F L Pulse Rate 75 78 94 Respiratory Rate 22 H Blood Pressure 113/75 Pulse Oximetry 98 03/07/21 19:48 03/07/21 20:00 03/07/21 22:00 Temperature 97.7 F Pulse Rate 85 85 74 Respiratory Rate 18 18 Blood Pressure 116/68 Pulse Oximetry 100 100 03/07/21 23:25 03/08/21 00:00 03/08/21 02:00 Temperature 97.5 F L Pulse Rate 87 87 81 Respiratory Rate 16 16 Blood Pressure 120/78 Pulse Oximetry 100 100 03/08/21 04:00 03/08/21 04:22 03/08/21 06:00 Temperature 97.3 F L Pulse Rate 84 84 72 Respiratory Rate 18 18 Blood Pressure 115/70 Pulse Oximetry 100 100 03/08/21 08:00 03/08/21 10:00 03/08/21 12:00 Temperature 96.8 F L 97.3 F L Pulse Rate 95 75 81 Respiratory Rate 20 24 H Blood Pressure 114/71 116/68 Pulse Oximetry 96 100 03/08/21 13:25 03/08/21 13:40 Temperature 97.0 F L 96.9 F L Pulse Rate 80 87 Respiratory Rate 16 20 Blood Pressure 106/64 114/67 Pulse Oximetry 100 99 Intake/Output Intake/Output: Intake & Output 03/05/21 03/06/21 03/07/21 03/08/21 23:59 23:59 23:59 23:59 Intake Total 1510 1320 Output Total 180 180 Balance 1330 1140 Meds/Results Medications: Active Medications Generic Name Dose Route Start Last Admin Trade Name Freq PRN Reason Stop Dose Admin Acetaminophen 650 mg 03/06/21 20:24 Acetaminophen 325 Mg Tablet PO Q4H PRN Pain Rated 4-6 Artificial Tears 1 drop 03/06/21 20:24 Artificial Tears Op Soln 15 Ml Bottle EACH EYE Q4-6H PRN Dry Eyes Carvedilol 3.125 mg 03/06/21 21:00 03/08/21 09:04 Carvedilol 3.125 Mg Tablet PO 3.125 mg Q12HR BORIS Administration Ciprofloxacin 1 drop 03/07/21 09:55 03/08/21 09:04 Ciprofloxacin Hcl 0.3% Op Soln 2.5 Ml Btl RIGHT EYE 1 drop Q12HR BORIS Administration Diphenhydramine HCl 25 mg 03/06/21 20:24 03/06/21 21:42 Diphenhydramine Hcl Elixir 12.5 Mg/5 Ml Udc PO 25 mg Q6H PRN Administration Pain Rated 1-3 Docusate Sodium 100 mg 03/07/21 09:00 03/08/21 09:04 Docusate Sodium 100 Mg Capsule PO 100 mg BID BORIS Administration Famotidine 20 mg 03/06/21 21:00 03/08/21 09:04 Famotidine 20 Mg Tablet PO 20 mg Q12HR BORIS Administration Furosemide 20 mg 03/08/21 14:05 Furosemide Inj 40 Mg/4 Ml Vial IV PUSH Q6H BORIS Heparin Sodium (Beef Lung) 50 units 03/07/21 09:00 03/08/21 09:05 Heparin Flush 50 Units/5 Ml Syringe IV PUSH Not Given QAM BORIS Heparin Sodium (Beef Lung) 50 units 03/06/21 13:07 Heparin Flush 50 Units/5 Ml Syringe IV PUSH PRN PRN after intermittent infusion Heparin Sodium (Beef Lung) 50 units 03/06/21 13:07 Heparin Flush 50 Units/5 Ml Syringe IV PUSH PRN PRN after blood draws Heparin Sodium (Porcine) 500 units 03/06/21 13:07 Heparin Sod Flush 500 Units/5 Ml Syringe IV PUSH PRN PRN see comments below Ceftriaxone Sodium/Dextrose 1 gm in 50 mls @ 100 mls/hr 03/07/21 14:00 03/07/21 17:20 Rocephin 1 Gm/D5w 50 Ml IVPB Infused Q24H BORIS Infusion Sodium Chloride 250 mls @ 30 mls/hr 03/08/21 07:38 03/08/21 13:27 Normal Saline Iv IV CONT 03/08/21 15:57 30 mls/hr .Q8H20M STA Administration Sodium Chloride 250 mls @ 30 mls/hr 03/08/21 09:22 03/08/21 13:26 Normal Saline Iv IV CONT 03/08/21 17:41 Not Given .Q8H20M STA Metronidazole 500 mg in 100 mls @ 100 mls/hr 03/08/21 15:00 Flagyl 500 Mg/Iso Soln 100 Ml IVPB Q6H BORIS Albumin Human 100 mls @ 60 mls/hr 03/08/21 18:00 Albutein IVPB Q6HR BORIS Sodium Bicarbonate 150 meq/ 1,100 mls @ 50 mls/hr 03/08/21 14:05 Dextrose IV CONT .Q22H BORIS Ketorolac Tromethamine 1 drop 03/07/21 10:00 03/08/21 09:05 Ketorolac 0.5% Op Soln 5 Ml Bottle RIGHT EYE 04/06
[2021-03-08] MEDS: metroNIDAZOLE 500 MG/ISO 100ML 500 MG/100 ML BAG 100 MG IVPB ×2 (15:18→22:38)
[2021-03-08] MEDS: SODIUM BICARBONATE 8.4% 150 MEQ in DEXTROSE 5% 1,000 ML 950 ML 50 MEQ IV CONT (15:19)
[2021-03-08 15:39] LABS: INR 1.2; Prothrombin Time 15.3 Seconds (11.1-14.7)
[2021-03-08 17:36] LABS: Hematocrit 23.6 % (37.0-47.0); Hemoglobin 8.1 g/dL (12.0-15.0); Immature Platelet Fraction Pct 5.4 % (0.9-11.2); Mean Corpuscular HGB Conc 34.3 g/dl (32-36); Mean Corpuscular Hemoglobin 28.8 pg (26-34); Platelet Count Result 28 k/mm3 (150-375); Red Blood Count 2.81 M/mm3 (4.2-5.4); Red Cell Distribution Width 16.3 % (11.5-14.5); White Blood Count 11.4 K/mm3 (4.5-10.0)
[2021-03-08] MEDS: ALBUMIN HUMAN 25% 25 GM/100 ML 100 ML IVPB (17:39)
[2021-03-08] MEDS: FUROSEMIDE INJ 40 MG/4 ML VIAL 20 MG IV PUSH (19:09)
[2021-03-09] VITALS (26 sets, daily range): BP systolic 106–138; BP diastolic 65–97; PULSE 69–114; RESP 16–34; TEMP 35.5–36.4; O2SAT 90–100
[2021-03-09] MEDS: ALBUMIN HUMAN 25% 25 GM/100 ML 100 ML IVPB ×2 (01:15→06:38)
[2021-03-09] MEDS: metroNIDAZOLE 500 MG/ISO 100ML 500 MG/100 ML BAG 100 MG IVPB ×4 (02:48→20:38)
[2021-03-09] MEDS: FUROSEMIDE INJ 40 MG/4 ML VIAL 20 MG IV PUSH ×2 (03:06→08:39)
[2021-03-09] MEDS: CENTRAL LINE FLUSH 10 ML IV PUSH ×3 (06:38→20:29)
[2021-03-09] MEDS: ACETAMINOPHEN 325 MG TABLET 650 MG PO (06:43)
[2021-03-09 06:55] LABS: Albumin Level 2.1 g/dL (3.5-5.1); Anion Gap 9 mmol/L (8-16); Blood Urea Nitrogen 68 mg/dL (7-17); Calcium 7.7 mg/dL (8.4-10.2); Carbon Dioxide 16 mmol/L (22-30); Chloride 114 mmol/L (98-107); Estimated CRCL calculation 13 ml/min; Estimated Glomerular Filt Rate 12; Glucose 113 mg/dL (65-105); Phosphorus 4.8 mg/dL (2.5-4.5); Potassium 3.8 mmol/L (3.4-5.0); Sodium 139 mmol/L (137-145)
[2021-03-09 08:17] LABS: Basophils Percent Auto 0.2 % (0.2-1.2); Eosinophils Absolute Auto 0.1 K/mm3 (0-0.3); Eosinophils Percent Auto 0.5 % (0-4.4); Hemoglobin 7.1 g/dL (12.0-15.0); Immature Granulocyte Absolute 0.13 K/mm3 (0.00-0.031); Immature Granulocyte Percent A 1.3 % (0-0.5); Immature Platelet Fraction Pct 8.2 % (0.9-11.2); Lymphocytes Absolute Auto 0.74 K/mm3 (0.9-3.2); Lymphocytes Percent Auto 7.6 % (18.3-44.2); Mean Corpuscular HGB Conc 33.8 g/dl (32-36); Mean Corpuscular Hemoglobin 28.5 pg (26-34); Mean Corpuscular Volume 84.3 fl (80-100); Monocytes Absolute Auto 0.5 K/mm3 (0.1-0.6); Monocytes Percent Auto 4.8 % (2.6-8.5); Neutrophils Absolute Auto 8.4 K/mm3 (1.3-6.7); Neutrophils Percent Auto 85.6 % (45.5-73.1); Nucleated Red Blood Cells Perc 0.3 % (0.0-0.2); Red Blood Count 2.49 M/mm3 (4.2-5.4); Red Cell Distribution Width 16.6 % (11.5-14.5); White Blood Count 9.8 K/mm3 (4.5-10.0)
[2021-03-09 08:33] LABS: INR 1.3; Prothrombin Time 16.7 Seconds (11.1-14.7)
[2021-03-09 08:34] LABS: Partial Thromboplastin Time 45.1 SECONDS (22.3-36.8)
[2021-03-09] MEDS: oxyCODONE/ACETAMINOPHEN (*CRX) 5-325 MG TABLET 1 TABLET PO (08:36)
[2021-03-09 08:40] LABS: Platelet Count Result 19 k/mm3 (150-375)
[2021-03-09 08:41] LABS: Acanthocytes 1+ (NORMAL); Crenated RBC 1+ (NORMAL); Hyperchromasia 1+ (NORMAL); Ovalocytes 1+ (NORMAL); Platelet Estimate Decreased (Adequate); Poikilocytosis 1+ (NORMAL)
--- NOTE | 2021-03-09 10:33 | PM.CNGS ---
Assessment and Plan Assessment and plan (1) Abnormal CT of the abdomen: Code(s): R93.5 - Abnormal findings on diagnostic imaging of other abdominal regions, including retroperitoneum Status: Acute Assessment and Plan: agree with plan for ultrasound guided or image guided percutaneous drainage procedure. I doubt this is an abscess. More likely it is a seroma consistent with her anasarca and recent surgery. Patient at this point is not a surgical candidate under any circumstance unless for a very minor possibly even local anesthetic type procedure. (2) Anasarca: Code(s): R60.1 - Generalized edema Status: Acute Assessment and Plan: consequence of progressive metastatic cancer (3) Thrombocytopenia: Code(s): D69.6 - Thrombocytopenia, unspecified Status: Acute Assessment and Plan: platelet count down to 19,000 today. This also may be a consequence of her advanced cancer. (4) Metastatic colon cancer in female: Onset Date: ~2017 Code(s): C18.9 - Malignant neoplasm of colon, unspecified Status: Chronic Assessment and Plan: Early very little to do for her at this point other than comfort measures. History of Present Illness Consult details Consult date: 03/09/21 Reason for consult: other ( Intra-abdominal fluid collection on CT) Requesting physician: Kavita Bowles MD Narrative: 60-year-old woman well known to me from previous laparotomy for small-bowel obstruction. She is known to have recurrent and metastatic colon cancer with carcinomatosis. She has bilateral nephrostomy tubes due to bilateral ureteral obstruction from tumor. She had a small bowel resection for an obstructing metastasis by me on February 11, 2021. This had been healing well however she came back in to the hospital after deteriorating at home. She is noted to have anasarca. Recent CT scan shows a sizable fluid collection in the right lower quadrant. I was asked to see the patient in consultation regarding this abnormality and her continued difficulties. Review of Systems Review of Systems: All systems reviewed & are unremarkable except as noted in HPI and below Constitutional: Constitutional: Denies chills, Reports fatigue, Denies fever(s), Denies headache(s), Reports lethargy and Reports weakness Gastrointestinal: Gastrointestinal: Reports as per HPI, Denies abdominal pain and Reports constipation Neurologic: Denies confusion and Denies headache(s) [facility] Past Medical History Medical History Anemia of chronic disease Anxiety Chronic kidney disease (~03/2020) Baseline creatinine is between 2.0 and 2.40. Congestive heart failure Echocardiogram in March 2020 demonstrated grade 1 diastolic dysfunction with an EF of 55-60%. Left ventricular chamber was mildly enlarged. Deep vein thrombosis of right lower extremity History of small bowel obstruction Hypertension Metastatic colon cancer in female (~2017) Diagnosis in 2015, status post colectomy with colostomy and adjuvant chemotherapy with FOLFOX. Status post hyperthermic intraperitoneal chemotherapy with debulking surgery in 2018 done in [place]. Status post bilateral nephrostomy tube placement in August 2020 due to extrinsic compression of the ureters from a large tumor, found to be recurrent metastatic cancer. Imaging on 12/21/2020 showed a malignant mass in the sigmoid colon with pelvic lymphadenopathy and multiple peritoneal masses consistent with metastatic disease. She is currently receiving immunotherapy per Dr. Arango. Moderate aortic regurgitation Port-A-Cath in place Surgical History Surgical History History of bone marrow biopsy History of laparotomy (~2017) Debulking surgery for metastatic colon cancer. History of laparotomy (02/11/21) Adhesiolysis with enterotomy and anastomosis per Dr. Miller. History of nep
--- NOTE | 2021-03-09 10:43 | PM.IMPN ---
Progress Note: A&P Assessment and Plan (1) Acute on chronic renal failure: Code(s): N17.9 - Acute kidney failure, unspecified; N18.9 - Chronic kidney disease, unspecified Status: Acute Assessment and Plan: Will continue to monitor the BUN and creatinine, nephrology on case. (2) Anasarca: Code(s): R60.1 - Generalized edema Status: Acute Assessment and Plan: Nephrology following will continue monitor the labs. (3) Protein calorie malnutrition: Code(s): E46 - Unspecified protein-calorie malnutrition Status: Acute Assessment and Plan: Improve calorie intake. (4) Generalized weakness: Code(s): R53.1 - Weakness Status: Acute Assessment and Plan: With a arranged rehab once patient is more medically stable. (5) Confusion: Code(s): R41.0 - Disorientation, unspecified Status: Acute Assessment and Plan: Patient is more alert and oriented today CT head is negative for any stroke. (6) Abnormal urinalysis: Code(s): R82.90 - Unspecified abnormal findings in urine Status: Acute Assessment and Plan: Culture and antibiotics. (7) Elevated troponin: Code(s): R77.8 - Other specified abnormalities of plasma proteins Status: Acute Assessment and Plan: Follow labs and cardiology consult. (8) Decubital ulcer: Code(s): L89.90 - Pressure ulcer of unspecified site, unspecified stage Status: Acute Assessment and Plan: Decubitus prevention. Continue current treatment. (9) Metastatic colon cancer in female: Onset Date: ~2018 Code(s): C18.9 - Malignant neoplasm of colon, unspecified Status: Chronic Assessment and Plan: Continue current treatment. (10) Congestive heart failure: Qualifiers: Heart failure chronicity: chronic Heart failure type: diastolic Qualified Code(s): I50.32 - Chronic diastolic (congestive) heart failure Code(s): I50.9 - Heart failure, unspecified Status: Chronic Assessment and Plan: Continue diuresis and monitor patient closely. (11) Abnormal CT of the abdomen: Code(s): R93.5 - Abnormal findings on diagnostic imaging of other abdominal regions, including retroperitoneum Status: Acute Assessment and Plan: There is a possibility of abscess in the abdomen IR was consulted for drainage was the platelets are stable will get and drained. (12) Thrombocytopenia: Code(s): D69.6 - Thrombocytopenia, unspecified Status: Acute Assessment and Plan: Heme-Onc on consult no acute bleeding at present. Will transfuse if needed. (13) Anemia: Code(s): D64.9 - Anemia, unspecified Status: Acute Assessment and Plan: Hematology-Oncology was consulted monitored closely. Will transfuse if needed. Additional Plan Will continue current plan of care and treatment. Will continue with diuretics. CT abdomen shows possible abscess in the abdominal area. Drainage is schedule once platelets are stable. Subjective Date/time seen: 03/09/21 10:43 Patient was seen during the morning rounds today. Patient is feeling slightly better. More alert. No shortness of breath or chest pain. Mood stable. Exam Const: General: cooperative and no acute distress Orientation/consciousness: oriented to person, oriented to place, oriented to time and patient oriented x3 HENMT: Head: normal to inspection Ears: hearing grossly normal bilaterally and external ears normal General nose exam: Normal external nose present Face and sinus: normal facial exam Mouth: Yes Normal oral and palatal mucosa present Eyes: General: appearance normal, both eyes and all related structures Neck: Neck: normal visual inspection and full ROM Chest: Chest palpation & inspection: normal inspection of the chest and normal palpation of entire chest wall Resp: Effort & Inspection: normal respiratory effort Auscultation: cl
--- NOTE | 2021-03-09 10:55 | PM.PNNEP ---
Progress Note: A&P Assessment and Plan (1) Acute on chronic renal failure: Code(s): N17.9 - Acute kidney failure, unspecified; N18.9 - Chronic kidney disease, unspecified Status: Acute Assessment and Plan: The patient has chronic kidney disease. This is probably related to her recurrent obstruction. Longstanding hypertension may be playing a role as well. Her baseline creatinine is around 2.0. He also has acute kidney injury. She was seen by Urology and felt not to have obstruction. Urine electrolytes are non pre renal Urine eosinophils are negative. Patient probably has ATN. The patient has an infection. Blood cultures are growing B fragilis. She is on broad-spectrum antibiotics. Infectious Disease is consulted. The patient has a fluid collection in her belly. This is going to be tapped yesterday but her platelet count was too low. Dr. Arango is on the case. The patient had a metabolic acidosis yesterday.There is no anion gap as the anion gap is only 9. Although this anion gap is up from 6 yesterday. Will check BHOB and lactate levels just in case. Because of fluid overload I am going to stop the bicarb drip until things have settled down respiratory collins. The patient was anemic yesterday in received some blood. Hemoglobin today is up to 7.1. The albumin is up to 2.1. Will hold off on the albumin for now until respiratory situation improves. The hospitalist is looking into transfer to ICU I talked with Angela, Daughter, (2) Bilateral ureteral obstruction: Code(s): N13.5 - Crossing vessel and stricture of ureter without hydronephrosis Status: Acute Assessment and Plan: The patient has percutaneous nephrostomies in place (3) Protein calorie malnutrition: Code(s): E46 - Unspecified protein-calorie malnutrition Status: Acute Assessment and Plan: The patient is not eating very well at all. In addition she has metastatic cancer. (4) Anasarca: Code(s): R60.1 - Generalized edema Status: Acute Assessment and Plan: This is most likely caused by low albumin but also may have some venous or lymphatic obstruction from the colon cancer. Subjective Date/time seen: 03/09/21 10:55 Interval history: Patient is more short of breath today. She has posterior pharyngeal secretions. She is lying in semi louis's position. No chest pain. She has some cough. Review of Systems Cardiovascular: Cardiovascular: Reports no additional cardiovascular complaints Respiratory: Respiratory: Reports no additional respiratory complaints Gastrointestinal: Gastrointestinal: Reports no additional gastrointestinal complaints Genitourinary: Genitourinary: Reports no additional female genitourinary complaints Exam Narrative: Exam Narrative: WDWN female, sleepy but in no acute distress. skin no rash Or subcu nodules head ncat lungs coarse breath sounds with increased expiratory phase. cor reg no rub or gallop abd BS+ nontender and soft ext 2+ diffuse edema. neuro: More awake and interactive today. Objective Data Vital Signs Vital Signs: Vital Signs - 24 hr 03/08/21 12:00 03/08/21 13:25 03/08/21 13:40 Temperature 36.3 C L 36.1 C L 36.1 C L Pulse Rate 81 80 87 Respiratory Rate 24 H 16 20 Blood Pressure 116/68 106/64 114/67 Pulse Oximetry 100 100 99 03/08/21 14:00 03/08/21 14:40 03/08/21 15:50 Temperature 36.6 C 36.1 C L Pulse Rate 82 87 78 Respiratory Rate 20 20 Blood Pressure 109/74 107/68 Pulse Oximetry 100 100 03/08/21 16:00 03/08/21 18:00 03/08/21 20:00 Temperature 35.6 C L 36.1 C L Pulse Rate 77 65 81 Respiratory Rate 22 H 18 Blood Pressure 111/72 117/79 Pulse Oximetry 100 99 03/08/21 22:00 03/08/21 22:40 03/09/21 00:00 Temperature 36.1 C L Pulse Rate 74 91 89 Respiratory Rate 22 H Blood Pressure 109/65 Pulse Oximetry 100 03/09/21 02:00 03/09/21 04:00 03/09/21 06:00 Temperature 36.
[2021-03-09 11:17] LABS: Alveolar/Arterial O2 Gradient 115.8 mmHg; Fractional Inspired Oxygen 28 %; HCO3 ABG 14.6 mEq/l (22.0-26.0); Oxygen Saturation ABG 89.6 % (95.0-100.0); Oxyhemoglobin 87.3 % THb (90.0-100.0); PCO2 ABG 24.2 mmHg (35.0-45.0); PO2 ABG 55.3 mmHg (80.0-100.0); PO2 FiO2 Ratio Arterial Blood 1.98 %; Total Hemoglobin 8.1 g/dL (12.0-18.0); pH ABG 7.399 (7.350-7.450)
[2021-03-09 11:19] LABS: Device NASAL CANNULA; Modified Allen's Test Pass; Site Drawn RIGHT RADIAL
--- NOTE | 2021-03-09 12:03 | WPDCNINT ---
Assessment and Plan Assessment and plan (1) Hypoxia: Code(s): R09.02 - Hypoxemia Status: Acute Assessment and Plan: CXR : Development of patchy bilateral airspace consolidation, consistent with pneumonia. Bilateral infiltrates suggestive of pulmonary edema versus pneumonia. Continue diuretics although I am not sure how well they work in the light of renal failure Broaden antibiotic coverage to vanc and cefepime P.r.n. NT suction Will add bicarb to treat metabolic acidosis which may be driving some of the tachypnea Transferred to ICU. May need intubation if continues to get worse (2) Pneumonia: Code(s): J18.9 - Pneumonia, unspecified organism Status: Acute Assessment and Plan: Chest x-ray shows bilateral infiltrates and cardiomegaly Broaden antibiotic coverage to cover for pneumonia (3) Acute on chronic renal failure: Code(s): N17.9 - Acute kidney failure, unspecified; N18.9 - Chronic kidney disease, unspecified Status: Acute Assessment and Plan: Acute kidney injury over chronic kidney disease Patient is being seen by Nephrology and Urology at this time Nephrostomies tubes are in place Her baseline creatinine is around 2.0. Metabolic acidosis uremia-check ABG and will add bicarb (4) Bilateral ureteral obstruction: Code(s): N13.5 - Crossing vessel and stricture of ureter without hydronephrosis Status: Acute Assessment and Plan: The patient has percutaneous nephrostomies in place. (5) Protein calorie malnutrition: Code(s): E46 - Unspecified protein-calorie malnutrition Status: Acute Assessment and Plan: Secondary to metastatic cancer and also now has adynamic ileus NPO at this time (6) Anasarca: Code(s): R60.1 - Generalized edema Status: Acute Assessment and Plan: Multifactorial likely secondary to low albumin venous obstruction and heart failure (7) Anemia: Code(s): D64.9 - Anemia, unspecified Status: Acute Assessment and Plan: Monitor and transfuse as needed (8) Thrombocytopenia: Code(s): D69.6 - Thrombocytopenia, unspecified Status: Acute Assessment and Plan: Patient is getting platelet transfusion for ultrasound-guided drainage of fluid collection (9) Bacteremia: Code(s): R78.81 - Bacteremia Status: Acute Assessment and Plan: Blood culture 1/2 is growing bacteroides fragilis which could be contaminant versus from abdomen source. Patient is on Flagyl (10) Abdominal mass: Code(s): R19.00 - Intra-abdominal and pelvic swelling, mass and lump, unspecified site Status: Acute Assessment and Plan: CT showed 10.2 x 6.9 x 12.7 cm fluid collection in the right abdomen of uncertain etiology, stable from 03/02/21 and new from 02/06/21. The differential diagnosis includes abscess, subacute hematoma, and peritoneal inclusion cyst. Plan for percutaneous drainage once platelets are transfused Additional Plan DVT prophylaxis -SCDs Nutrition -currently NPO Code Status -the patient herself is unable to participate in any discussion as I do not feel she has understanding of the complexity of the situation. I had extensive discussion with patient's daughter at bedside while the other daughter was on the phone. I updated them with patient's current status her multiorgan failure in light of background metastatic cancer. I also explained them option of hospice or palliative care. Patient's daughter requests patient to be full code and is okay with intubation if needed. I feel the family is unrealistic in the expectations of outcomes. It seems that patient's family is unrealistic about the effectiveness and outcome of the cancer treatment that she is receiving. Her overall prognosis is extremely poor Total Critical Care Time - 60 minutes Due to a high probability of clinically significant, life threatening deterioration, the patient required my h
[2021-03-09] MEDS: SODIUM CHLORIDE 0.9% IV 250 ML 30 ML IV CONT (14:13)
[2021-03-09] MEDS: CEFEPIME 0.5 GM in DEXTROSE 5% IN WATER 50 ML IVPB (14:55)
[2021-03-09 16:35] LABS: Hemoglobin 7.1 g/dL (12.0-15.0); Mean Corpuscular HGB Conc 34.5 g/dl (32-36); Mean Corpuscular Hemoglobin 29.1 pg (26-34); Mean Corpuscular Volume 84.4 fl (80-100); Mean Platelet Volume 10.3 fl (7.4-10.4); Platelet Count Result 99 k/mm3 (150-375); Red Blood Count 2.44 M/mm3 (4.2-5.4); White Blood Count 10.1 K/mm3 (4.5-10.0)
[2021-03-09 16:38] LABS: Hematocrit 20.6 % (37.0-47.0)
[2021-03-09] MEDS: SODIUM BICARBONATE TAB 650 MG TABLET 1300 MG PO (17:37)
[2021-03-09] MEDS: BUMETANIDE INJ 2.5 MG/10 ML VIAL 2 MG IV PUSH (17:37)
[2021-03-09] MEDS: DOCUSATE SODIUM 100 MG CAPSULE PO (17:37)
[2021-03-09] MEDS: CIPROFLOXACIN HCL 0.3% OP SOLN 2.5 ML BTL 1 DROP RIGHT EYE (20:37)
[2021-03-09] MEDS: FAMOTIDINE 20 MG TABLET PO (20:37)
[2021-03-09] MEDS: carvediloL 3.125 MG TABLET PO (20:37)
[2021-03-09] MEDS: BUMETANIDE INJ 1 MG/4 ML VIAL IV PUSH (22:00)
[2021-03-09] MEDS: MORPHINE SULFATE (*CRX) 2 MG/ML INJ IV PUSH (22:47)
[2021-03-09] MEDS: SCOPOLAMINE 1.5 MG PATCH TRANSDERM (23:15)
--- NOTE | 2021-03-09 23:16 | PM.EVENT ---
Event Note Event Note Event Note: i was called into the room because the patient decreased her oxygen level to 80 percent when she was laid flat to change her. She was tachycardia and her resp were in the 30s. We placed her on high flow o2 to 7 liters. we gave a dose of bumex and a neb treatment. The patient was crying in pain and we gave her morphine iv. I then asked her about being intubated if she continues to struggle during the night. I called the er to notify them of the patient's condition. I do not feel that the patient required intubation. She stated that she did not want to be intubated at this time. I did have Dr. Salazar to evaulate the patient and the patient is not requiring intubation at this time. I did call the daughter to update her about her moms condition. chest xray was ordered and abgs . hr 94 and pulse ox 98 percent
[2021-03-09 23:32] LABS: Alveolar/Arterial O2 Gradient 256.4 mmHg; Base Excess ABG -9.9 mEq/l (+/-2.0); Fractional Inspired Oxygen 48 %; Oxygen Content ABG 10.5 %vol (16.0-22.0); Oxygen Saturation ABG 93.5 % (95.0-100.0); Oxyhemoglobin 90.8 % THb (90.0-100.0); PO2 ABG 63.4 mmHg (80.0-100.0); PO2 FiO2 Ratio Arterial Blood 1.32 %; Total Hemoglobin 8.2 g/dL (12.0-18.0); pH ABG 7.433 (7.350-7.450)
[2021-03-09 23:34] LABS: Modified Allen's Test Unable to perform; PCO2 ABG 19.9 mmHg (35.0-45.0); Site Drawn RIGHT RADIAL
[2021-03-09 23:35] LABS: Device HIGH FLOW NASAL CANN
[2021-03-10] VITALS (23 sets, daily range): BP systolic 93–138; BP diastolic 62–98; PULSE 78–167; RESP 12–34; TEMP 35.8–36.7; O2SAT 92–100
[2021-03-10] MEDS: metOLazone 5 MG TABLET PO (01:44)
[2021-03-10] MEDS: CENTRAL LINE FLUSH 10 ML IV PUSH ×3 (03:20→22:29)
[2021-03-10] MEDS: metroNIDAZOLE 500 MG/ISO 100ML 500 MG/100 ML BAG 100 MG IVPB ×4 (03:56→20:51)
[2021-03-10] MEDS: CEFEPIME 0.5 GM in DEXTROSE 5% IN WATER 50 ML IVPB ×2 (03:56→15:53)
[2021-03-10 06:17] LABS: Hematocrit 22.7 % (37.0-47.0); Hemoglobin 7.8 g/dL (12.0-15.0); Mean Corpuscular HGB Conc 34.4 g/dl (32-36); Mean Corpuscular Hemoglobin 28.4 pg (26-34); Mean Corpuscular Volume 82.5 fl (80-100); Mean Platelet Volume 10.5 fl (7.4-10.4); Platelet Count Result 61 k/mm3 (150-375); Red Blood Count 2.75 M/mm3 (4.2-5.4); White Blood Count 10.3 K/mm3 (4.5-10.0)
[2021-03-10 06:33] LABS: Alanine Aminotransferase 10 U/L (4-35); Albumin Level 2.2 g/dL (3.5-5.1); Alkaline Phosphatase 63 U/L (38-126); Anion Gap 11 mmol/L (8-16); Aspartate Amino Transferase 21 U/L (14-36); Bilirubin,Total 0.5 mg/dL (0.2-1.3); Blood Urea Nitrogen 69 mg/dL (7-17); Calcium 7.9 mg/dL (8.4-10.2); Carbon Dioxide 15 mmol/L (22-30); Chloride 113 mmol/L (98-107); Estimated CRCL calculation 13 ml/min; Estimated Glomerular Filt Rate 12; Glucose 90 mg/dL (65-105); Magnesium 1.6 mg/dL (1.6-2.3); Sodium 139 mmol/L (137-145)
--- NOTE | 2021-03-10 09:02 | PM.IMPN ---
Progress Note: A&P Assessment and Plan (1) Acute on chronic renal failure: Code(s): N17.9 - Acute kidney failure, unspecified; N18.9 - Chronic kidney disease, unspecified Status: Acute Assessment and Plan: Will continue to monitor the BUN and creatinine, nephrology on case. (2) Anasarca: Code(s): R60.1 - Generalized edema Status: Acute Assessment and Plan: Nephrology following will continue monitor the labs. (3) Protein calorie malnutrition: Code(s): E46 - Unspecified protein-calorie malnutrition Status: Acute Assessment and Plan: Improve calorie intake. (4) Generalized weakness: Code(s): R53.1 - Weakness Status: Acute Assessment and Plan: With a arranged rehab once patient is more medically stable. (5) Confusion: Code(s): R41.0 - Disorientation, unspecified Status: Acute Assessment and Plan: Patient is more alert and oriented today CT head is negative for any stroke. (6) Abnormal urinalysis: Code(s): R82.90 - Unspecified abnormal findings in urine Status: Acute Assessment and Plan: Culture and antibiotics. (7) Elevated troponin: Code(s): R77.8 - Other specified abnormalities of plasma proteins Status: Acute Assessment and Plan: Follow labs and cardiology consult. (8) Decubital ulcer: Code(s): L89.90 - Pressure ulcer of unspecified site, unspecified stage Status: Acute Assessment and Plan: Decubitus prevention. Continue current treatment. (9) Metastatic colon cancer in female: Onset Date: ~2018 Code(s): C18.9 - Malignant neoplasm of colon, unspecified Status: Chronic Assessment and Plan: Continue current treatment. (10) Congestive heart failure: Qualifiers: Heart failure type: diastolic Heart failure chronicity: chronic Qualified Code(s): I50.32 - Chronic diastolic (congestive) heart failure Code(s): I50.9 - Heart failure, unspecified Status: Chronic Assessment and Plan: Continue diuresis and monitor patient closely. (11) Abnormal CT of the abdomen: Code(s): R93.5 - Abnormal findings on diagnostic imaging of other abdominal regions, including retroperitoneum Status: Acute Assessment and Plan: There is a possibility of abscess in the abdomen IR was consulted for drainage was the platelets are stable will get and drained. (12) Thrombocytopenia: Code(s): D69.6 - Thrombocytopenia, unspecified Status: Acute Assessment and Plan: Heme-Onc on consult no acute bleeding at present. Will transfuse if needed. (13) Anemia: Code(s): D64.9 - Anemia, unspecified Status: Acute Assessment and Plan: Hematology-Oncology was consulted monitored closely. Will transfuse if needed. (14) Bacteremia: Code(s): R78.81 - Bacteremia Status: Acute Assessment and Plan: Patient on vancomycin and cefepime and monitor cultures closely. (15) Pneumonia: Code(s): J18.9 - Pneumonia, unspecified organism Status: Acute Assessment and Plan: Patient is on Vanco and cefepime to monitor cultures closely. Repeat chest x-ray in the morning. Additional Plan Will continue current plan of care and treatment. Will continue with diuretics. CT abdomen shows possible abscess in the abdominal area. Drainage is schedule once platelets are stable. Case was discussed with the daughter in detail. Agrees with current plan of care and treatment. Subjective Date/time seen: 03/10/21 09:02 Interval history: Patient was seen during the morning rounds today. Patient was transferred to intensive care unit for close monitoring yesterday. Patient has mild shortness of breath. No chest pain. No abdominal pain nausea or vomiting. Mood stable. Review of Systems Review of Systems: All systems reviewed & are unremarkable except as noted in HPI and below (the
[2021-03-10] MEDS: SODIUM BICARBONATE 8.4% 50 MEQ/50 ML SYRINGE IV PUSH ×3 (09:41→16:55)
[2021-03-10] MEDS: CIPROFLOXACIN HCL 0.3% OP SOLN 2.5 ML BTL 1 DROP RIGHT EYE ×2 (09:42→20:51)
[2021-03-10] MEDS: SILVERGEL (ELTA) 45 ML 1 APPLIC TOPICAL (09:45)
[2021-03-10] MEDS: KETOROLAC 0.5% OP SOLN 5 ML BOTTLE 1 DROP RIGHT EYE (09:48)
[2021-03-10] MEDS: MAGNESIUM SULF 2 GM/WATER 50ML 2 GM/50 ML BAG IVPB (09:52)
--- NOTE | 2021-03-10 10:21 | PM.PNNEP ---
Progress Note: A&P Assessment and Plan (1) Acute on chronic renal failure: Code(s): N17.9 - Acute kidney failure, unspecified; N18.9 - Chronic kidney disease, unspecified Status: Acute Assessment and Plan: The patient has chronic kidney disease. This is probably related to her recurrent obstruction. Longstanding hypertension may be playing a role as well. Her baseline creatinine is around 2.0. He also has acute kidney injury. She was seen by Urology and felt not to have obstruction. Urine electrolytes are non pre renal Urine eosinophils are negative. Patient probably has ATN. The etiology of the ATN is probably infection. She is on broad-spectrum antibiotics. Hopefully the fluid collection her belly will be drained tomorrow. Platelet count is better. She is making more urine with the Bumex drip. She is on metolazone but cannot swallow it. Will try IV Diuril. Bicarbonate level is a little bit low. She is getting IV push sodium bicarbonate. Potassium is doing okay. Discussed with Dr. Garcia (2) Bilateral ureteral obstruction: Code(s): N13.5 - Crossing vessel and stricture of ureter without hydronephrosis Status: Acute Assessment and Plan: The patient has percutaneous nephrostomies in place (3) Protein calorie malnutrition: Code(s): E46 - Unspecified protein-calorie malnutrition Status: Acute Assessment and Plan: The patient is not eating very well at all. In addition she has metastatic cancer. (4) Anasarca: Code(s): R60.1 - Generalized edema Status: Acute Assessment and Plan: This is most likely caused by low albumin but also may have some venous or lymphatic obstruction from the colon cancer. Subjective Date/time seen: 03/10/21 10:21 Interval history: Patient is very weak but seems a little show less short of breath today no chest pain. Exam Narrative: Exam Narrative: WDWN female, sleepy but in no acute distress. skin no rash Or subcu nodules head ncat lungs coarse breath sounds at the bases. cor reg no rub or gallop abd BS+ nontender and soft ext 2+ diffuse edema. neuro: More awake and interactive today. Objective Data Vital Signs Vital Signs: Vital Signs - 24 hr 03/09/21 10:52 03/09/21 11:12 03/09/21 11:23 Temperature Pulse Rate 96 112 H 100 Respiratory Rate 34 H 22 H Blood Pressure Pulse Oximetry 90 03/09/21 12:00 03/09/21 12:23 03/09/21 13:50 Temperature 36.2 C L 35.5 C L Pulse Rate 100 100 85 Respiratory Rate 28 H 28 H 22 H Blood Pressure 138/94 H 138/94 H Pulse Oximetry 97 97 92 03/09/21 14:00 03/09/21 14:01 03/09/21 14:07 Temperature 35.7 C L Pulse Rate 91 91 100 Respiratory Rate 22 H 22 H 26 H Blood Pressure 125/82 125/82 Pulse Oximetry 100 100 03/09/21 14:12 03/09/21 16:00 03/09/21 16:11 Temperature 35.9 C L 35.7 C L 35.7 C L Pulse Rate 94 91 91 Respiratory Rate 24 H 16 16 Blood Pressure 138/97 H 128/82 Pulse Oximetry 96 96 96 03/09/21 18:00 03/09/21 19:49 03/09/21 19:55 Temperature Pulse Rate 114 H 101 H 97 Respiratory Rate 16 24 H 24 H Blood Pressure 136/96 H Pulse Oximetry 92 96 03/09/21 20:00 03/09/21 20:37 03/09/21 21:52 Temperature 36.1 C L Pulse Rate 97 100 109 H Respiratory Rate 16 25 H Blood Pressure 127/96 H 132/83 Pulse Oximetry 97 91 03/09/21 22:46 03/10/21 00:00 03/10/21 01:17 Temperature 36.0 C L Pulse Rate 90 128 H Respiratory Rate 21 H 30 H Blood Pressure 126/78 Pulse Oximetry 91 97 03/10/21 01:26 03/10/21 01:53 03/10/21 02:00 Temperature Pulse Rate 122 H 89 Respiratory Rate 31 H 23 H Blood Pressure 131/91 H Pulse Oximetry 92 98 03/10/21 04:00 03/10/21 04:32 03/10/21 05:41 Temperature 36.0 C L Pulse Rate 91 91 85 Respiratory Rate 25 H 14 20 Blood Pressure 138/87 125/92 H Pulse Oximetry 97 98 98 03/10/21 07:55 03/10/21 09:15 Temperature Pulse Rate
--- NOTE | 2021-03-10 10:33 | WPDINTPN ---
Progress Note: A&P Assessment and Plan (1) Hypoxia: Code(s): R09.02 - Hypoxemia Status: Acute Assessment and Plan: Increased oxygen requirement overnight and patient was to 8 L by nasal cannula this morning chest x-ray shows worsening pulmonary edema Patient was started on Bumex infusion overnight and will be continued I switch patient to Airvo to provide some PEEP Patient will not tolerate BiPAP and may need intubation if deteriorates further She is on broad-spectrum antibiotics to cover for pneumonia although it appears to be less likely P.r.n. NT suction Will add bicarb to treat metabolic acidosis which may be driving some of the tachypnea (2) Pneumonia: Code(s): J18.9 - Pneumonia, unspecified organism Status: Acute Assessment and Plan: Chest x-ray shows bilateral infiltrates and cardiomegaly Broaden antibiotic coverage to cover for pneumonia (3) Acute on chronic renal failure: Code(s): N17.9 - Acute kidney failure, unspecified; N18.9 - Chronic kidney disease, unspecified Status: Acute Assessment and Plan: Acute kidney injury over chronic kidney disease Patient is being seen by Nephrology and Urology at this time Nephrostomies tubes are in place Her baseline creatinine is around 2.0 creatinine is 4.6 this morning. Metabolic acidosis - add bicarb (4) Bilateral ureteral obstruction: Code(s): N13.5 - Crossing vessel and stricture of ureter without hydronephrosis Status: Acute Assessment and Plan: The patient has percutaneous nephrostomies in place. (5) Protein calorie malnutrition: Code(s): E46 - Unspecified protein-calorie malnutrition Status: Acute Assessment and Plan: Secondary to metastatic cancer and also now has adynamic ileus Patient denies any nausea vomiting and is on clear liquid diet at this time although she is not eating much (6) Anasarca: Code(s): R60.1 - Generalized edema Status: Acute Assessment and Plan: Multifactorial likely secondary to low albumin venous obstruction and heart failure (7) Anemia: Code(s): D64.9 - Anemia, unspecified Status: Acute Assessment and Plan: Monitor and transfuse as needed (8) Thrombocytopenia: Code(s): D69.6 - Thrombocytopenia, unspecified Status: Acute Assessment and Plan: Patient is getting platelet transfusion for ultrasound-guided drainage of fluid collection (9) Bacteremia: Code(s): R78.81 - Bacteremia Status: Acute Assessment and Plan: Blood culture 11/03 is growing bacteroides fragilis which could be contaminant versus from abdomen source. Patient is on Flagyl (10) Abdominal mass: Code(s): R19.00 - Intra-abdominal and pelvic swelling, mass and lump, unspecified site Status: Acute Assessment and Plan: CT showed 10.2 x 6.9 x 12.7 cm fluid collection in the right abdomen of uncertain etiology, stable from 03/02/21 and new from 02/06/21. The differential diagnosis includes abscess, subacute hematoma, and peritoneal inclusion cyst. Plan for percutaneous drainage by radiology once platelets are transfused (11) Electrolyte abnormality: Code(s): E87.8 - Other disorders of electrolyte and fluid balance, not elsewhere classified Status: Acute Assessment and Plan: Replace low magnesium Additional Plan DVT prophylaxis -SCDs Code Status -patient is full code at this time as per patient's family's request Discussed case with nephrology Total Critical Care Time - 32 minutes Due to a high probability of clinically significant, life threatening deterioration, the patient required my highest level of preparedness to intervene emergently and I personally spent this critical care time directly and personally managing the patient. This critical care time included obtaining a history; examining the patient; pulse oximetry; ordering and review of studies; arranging urgent treatm
[2021-03-10] MEDS: SODIUM CHLORIDE 0.9% IV 250 ML 30 ML IV CONT (13:27)
[2021-03-11] VITALS (21 sets, daily range): BP systolic 97–121; BP diastolic 64–85; PULSE 66–97; RESP 12–24; TEMP 36.3–36.6; O2SAT 92–100
[2021-03-11] MEDS: CEFEPIME 0.5 GM in DEXTROSE 5% IN WATER 50 ML IVPB (02:04)
[2021-03-11] MEDS: metroNIDAZOLE 500 MG/ISO 100ML 500 MG/100 ML BAG 100 MG IVPB ×2 (02:51→09:15)
[2021-03-11 05:46] LABS: Hematocrit 21.7 % (37.0-47.0); Hemoglobin 7.4 g/dL (12.0-15.0); Immature Platelet Fraction Pct 3.6 % (0.9-11.2); Mean Corpuscular HGB Conc 34.1 g/dl (32-36); Mean Corpuscular Hemoglobin 28.7 pg (26-34); Mean Corpuscular Volume 84.1 fl (80-100); Mean Platelet Volume 11.6 fl (7.4-10.4); Platelet Count Result 68 k/mm3 (150-375); Red Blood Count 2.58 M/mm3 (4.2-5.4); Red Cell Distribution Width 16.8 % (11.5-14.5); White Blood Count 12.1 K/mm3 (4.5-10.0)
[2021-03-11] MEDS: CENTRAL LINE FLUSH 10 ML IV PUSH ×3 (05:48→20:50)
[2021-03-11 05:59] LABS: Alanine Aminotransferase 9 U/L (4-35); Alkaline Phosphatase 70 U/L (38-126); Anion Gap 8 mmol/L (8-16); Aspartate Amino Transferase 24 U/L (14-36); Bilirubin,Total 0.6 mg/dL (0.2-1.3); Blood Urea Nitrogen 71 mg/dL (7-17); Calcium 7.8 mg/dL (8.4-10.2); Carbon Dioxide 20 mmol/L (22-30); Chloride 114 mmol/L (98-107); Estimated CRCL calculation 12 ml/min; Estimated Glomerular Filt Rate 11; Glucose 77 mg/dL (65-105); Magnesium 1.9 mg/dL (1.6-2.3); Phosphorus 5.1 mg/dL (2.5-4.5); Potassium 3.4 mmol/L (3.4-5.0); Sodium 142 mmol/L (137-145)
[2021-03-11] MEDS: CIPROFLOXACIN HCL 0.3% OP SOLN 2.5 ML BTL 1 DROP RIGHT EYE ×2 (08:55→20:49)
[2021-03-11] MEDS: KETOROLAC 0.5% OP SOLN 5 ML BOTTLE 1 DROP RIGHT EYE (08:55)
[2021-03-11] MEDS: FAMOTIDINE 20 MG TABLET PO (08:56)
[2021-03-11] MEDS: DOCUSATE SODIUM 100 MG CAPSULE PO (08:56)
[2021-03-11] MEDS: SODIUM BICARBONATE TAB 650 MG TABLET 1300 MG PO ×2 (08:56→12:18)
[2021-03-11] MEDS: carvediloL 3.125 MG TABLET PO (08:57)
[2021-03-11] MEDS: CHLOROTHIAZIDE 500 MG VIAL IV PUSH (08:57)
[2021-03-11] MEDS: SILVERGEL (ELTA) 45 ML 1 APPLIC TOPICAL (08:58)
--- NOTE | 2021-03-11 09:59 | PM.IMPN ---
Progress Note: A&P Assessment and Plan (1) Acute on chronic renal failure: Qualifiers: Acute renal failure type: unspecified Chronic kidney disease stage: stage 3 (moderate) Chronic kidney disease stage 3 subtype: stage 3b (GFR 30-44) Qualified Code(s): N17.9 - Acute kidney failure, unspecified; N18.32 - Chronic kidney disease, stage 3b Code(s): N17.9 - Acute kidney failure, unspecified; N18.9 - Chronic kidney disease, unspecified Status: Acute Assessment and Plan: Nephrology consulted and appreciate input. Also being followed by urology. Nephrostomy tubes remain in place and draining. Noted have decreased output from the right side with Urology notified. Creatinine still elevated at 5.00 today. (2) Bilateral ureteral obstruction: Code(s): N13.5 - Crossing vessel and stricture of ureter without hydronephrosis Status: Acute Assessment and Plan: Bilateral percutaneous nephrostomy tubes remain in place. Appreciate help from Neurology. Will continue to follow. (3) Anasarca: Code(s): R60.1 - Generalized edema Status: Acute Assessment and Plan: Most likely result of low albumin. Will continue to follow with other treatments. (4) Protein calorie malnutrition: Code(s): E46 - Unspecified protein-calorie malnutrition Status: Acute Assessment and Plan: Poor intake at this point. Will continue to monitor. (5) Bacteremia: Code(s): R78.81 - Bacteremia Status: Acute Assessment and Plan: Patient with 1 blood culture growing Bacteroides fragilis and VRE. Infectious Disease consulted and appreciate input. Now on IV Zosyn and Linezolid. Prognosis guarded. (6) Hypoxia: Code(s): R09.02 - Hypoxemia Status: Acute Assessment and Plan: Improved with diuresis. Now on oxygen by nasal cannula at 3-4 L. IV Bumex drip to be discontinued. Will monitor. (7) Pneumonia: Qualifiers: Pneumonia type: due to unspecified organism Laterality: bilateral Code(s): J18.9 - Pneumonia, unspecified organism Status: Acute Assessment and Plan: Imaging with bilateral infiltrates. On IV antibiotics as noted above. Continue to monitor. Continue respiratory treatments. (8) Anemia: Code(s): D64.9 - Anemia, unspecified Status: Acute Assessment and Plan: Hemoglobin 7.4 today. Stable. Will monitor. Has required transfusion while here with last on 03/08/2021. (9) Thrombocytopenia: Code(s): D69.6 - Thrombocytopenia, unspecified Status: Acute Assessment and Plan: Platelets remain low but stable at 68,000 today. Will monitor. (10) Abdominal mass: Code(s): R19.00 - Intra-abdominal and pelvic swelling, mass and lump, unspecified site Status: Acute Assessment and Plan: Initial CT abdomen/pelvis with fluid collection in right abdomen with percutaneous drain in place, stable peritoneal mass consistent with metastatic disease and endoluminal mass in the sigmoid colon. Treatment of acute issues as noted above. (11) Electrolyte abnormality: Code(s): E87.8 - Other disorders of electrolyte and fluid balance, not elsewhere classified Status: Acute Assessment and Plan: Potassium and magnesium currently stable. Will monitor. (12) DVT prophylaxis: Code(s): Z29.9 - Encounter for prophylactic measures, unspecified Status: Acute Assessment and Plan: MACIEL harris. Time Spent With Patient Time with patient: 25 - 35 minutes Subjective Date/time seen: 03/11/21 09:59 Interval history: Date of Service: 03/11/2021. Admitted with acute on chronic renal failure, anasarca and multiple comorbidities including metastatic colon cancer and bilateral nephrostomy tubes. Patient reports she is very tired. Denies shortness of breath. Denies chest pain. Denies abdominal pain. Does have nephrostomy tubes in place as well as percutaneous chantel
[2021-03-11] MEDS: POTASSIUM CHLORIDE 20 MEQ PACKET (FOR LIQUID) 40 MEQ BY MOUTH (10:55)
--- NOTE | 2021-03-11 11:35 | WPDINTPN ---
Progress Note: A&P Assessment and Plan (1) Hypoxia: Code(s): R09.02 - Hypoxemia Status: Acute Assessment and Plan: Improved with diuresis, aggressive IS, p.r.n. suctioning and Airvo use in ICU Currently down to 3-4 L of nasal cannula and not in any distress Chest x-ray shows persistent bilateral infiltrates suggestive of pulmonary edema Patient was started on Bumex infusion overnight and will be continued Patient will not tolerate BiPAP and may need intubation if deteriorates further She is on broad-spectrum antibiotics to cover for pneumonia although it appears to be less likely -patient is on Zosyn Zyvox P.r.n. NT suction Continue bicarb to treat metabolic acidosis which may be driving some of the tachypnea (2) Pneumonia: Code(s): J18.9 - Pneumonia, unspecified organism Status: Acute Assessment and Plan: Chest x-ray shows bilateral infiltrates and cardiomegaly Broaden antibiotic coverage to cover for pneumonia (3) Abdominal abscess: Status: Acute Assessment and Plan: CT showed 10.2 x 6.9 x 12.7 cm fluid collection in the right abdomen of uncertain etiology, stable from 03/02/21 and new from 02/06/21. Patient received platelets transfusion yesterday. Abscess was drained by interventional radiology and drain was left in place (4) Acute on chronic renal failure: Qualifiers: Acute renal failure type: unspecified Code(s): N17.9 - Acute kidney failure, unspecified; N18.9 - Chronic kidney disease, unspecified Status: Acute Assessment and Plan: Acute kidney injury over chronic kidney disease Patient is being seen by Nephrology and Urology at this time Nephrostomies tubes are in place and draining Decreased output from right side. I spoke to Dr. Teran with urology and he will flush that a right nephrostomy tube Her baseline creatinine is around 2.0 creatinine is 5.0 this morning. Metabolic acidosis -continue bicarb (5) Bilateral ureteral obstruction: Code(s): N13.5 - Crossing vessel and stricture of ureter without hydronephrosis Status: Acute Assessment and Plan: The patient has percutaneous nephrostomies in place. L - 1100 and R only 50 ml. Decreased output from right side. I spoke to Dr. Teran with urology and he will flush that a right nephrostomy tube (6) Protein calorie malnutrition: Code(s): E46 - Unspecified protein-calorie malnutrition Status: Acute Assessment and Plan: Secondary to metastatic cancer and also now has adynamic ileus Patient denies any nausea vomiting and is on clear liquid diet at this time although she is not eating much. I have changed her diet to regular (7) Anasarca: Code(s): R60.1 - Generalized edema Status: Acute Assessment and Plan: Multifactorial likely secondary to low albumin venous obstruction and heart failure (8) Anemia: Code(s): D64.9 - Anemia, unspecified Status: Acute Assessment and Plan: Monitor and transfuse as needed (9) Thrombocytopenia: Code(s): D69.6 - Thrombocytopenia, unspecified Status: Acute Assessment and Plan: Patient received platelet transfusion for ultrasound-guided drainage of fluid collection yesterday (10) Bacteremia: Code(s): R78.81 - Bacteremia Status: Acute Assessment and Plan: Blood culture 1/2 is growing bacteroides fragilis and VRE. Antibiotic changed to Zyvox by Dr. dawn. Patient is also on Zosyn (11) Electrolyte abnormality: Code(s): E87.8 - Other disorders of electrolyte and fluid balance, not elsewhere classified Status: Acute Assessment and Plan: Replace low magnesium Additional Plan DVT prophylaxis -SCDs Code Status -patient is full code at this time as per patient's family's request I again had discussion with patient's daughter Chanda at bedside and I updated her with patient's current status and current treatment plan. I answered all
--- NOTE | 2021-03-11 12:11 | WPDINFPN2 ---
Progress Note: A&P Assessment and Plan (1) Bacteremia: Code(s): R78.81 - Bacteremia Status: Acute Assessment and Plan: 1. Polymicrobial bacteremia with infection, source infected tumor masses vs intra-abdominal abscess 2. Metastatic colon cancer 3. Bilateral N tubes, not source of her bacteremia 4. PCN intolerance, not hypersensitivity reaction REC PipTazo and Linezolid #1. Very guarded prognosis. Drain in place. Subjective Date/time seen: 03/11/21 12:11 Objective Data Vital Signs Vital Signs: Vital Signs - 24 hr 03/10/21 13:33 03/10/21 13:44 03/10/21 14:00 Temperature 36.2 C L 36.2 C L Pulse Rate 105 H 99 96 Respiratory Rate 28 H 32 H 28 H Blood Pressure 120/91 H 119/84 127/88 Pulse Oximetry 100 100 97 03/10/21 15:00 03/10/21 15:51 03/10/21 16:00 Temperature 36.2 C L 36.0 C L 36.3 C L Pulse Rate 167 H 102 H 96 Respiratory Rate 32 H 23 H 14 Blood Pressure 93/62 L 128/98 H 129/85 Pulse Oximetry 97 98 98 03/10/21 18:00 03/10/21 19:40 03/10/21 20:00 Temperature 36.7 C Pulse Rate 84 80 87 Respiratory Rate 12 19 16 Blood Pressure 135/88 123/83 Pulse Oximetry 100 100 97 03/10/21 22:00 03/11/21 00:00 03/11/21 00:45 Temperature 36.4 C Pulse Rate 82 85 74 Respiratory Rate 14 18 Blood Pressure 114/78 113/73 Pulse Oximetry 97 93 100 03/11/21 02:00 03/11/21 04:00 03/11/21 06:00 Temperature 36.6 C Pulse Rate 97 71 86 Respiratory Rate 18 12 15 Blood Pressure 114/78 102/70 110/82 Pulse Oximetry 98 100 100 03/11/21 07:41 03/11/21 08:00 03/11/21 08:57 Temperature 36.3 C L Pulse Rate 74 88 76 Respiratory Rate 24 H Blood Pressure 115/85 Pulse Oximetry 100 100 03/11/21 10:00 03/11/21 11:00 Temperature Pulse Rate 75 Respiratory Rate 16 Blood Pressure 107/74 Pulse Oximetry 100 96 Intake/Output Intake/Output: Intake & Output 03/08/21 03/09/21 03/10/21 03/11/21 23:59 23:59 23:59 23:59 Intake Total 2508 1201 972 350 Output Total 056 431 0930 1300 Balance 1583 347 -5165 -169 Meds/Results Medications: Active Medications Generic Name Dose Route Start Last Admin Trade Name Freq PRN Reason Stop Dose Admin Acetaminophen 650 mg 03/06/21 20:24 03/09/21 06:43 Acetaminophen 325 Mg Tablet PO 650 mg Q4H PRN Administration Pain Rated 4-6 Artificial Tears 1 drop 03/06/21 20:24 Artificial Tears Op Soln 15 Ml Bottle EACH EYE Q4-6H PRN Dry Eyes Carvedilol 3.125 mg 03/06/21 21:00 03/11/21 08:57 Carvedilol 3.125 Mg Tablet PO 3.125 mg Q12HR BORIS Administration Chlorothiazide Sodium 500 mg 03/11/21 09:00 03/11/21 08:57 Chlorothiazide 500 Mg Vial IV PUSH 500 mg DAILY BORIS Administration Ciprofloxacin 1 drop 03/07/21 09:55 03/11/21 08:55 Ciprofloxacin Hcl 0.3% Op Soln 2.5 Ml Btl RIGHT EYE 1 drop Q12HR BORIS Administration Diphenhydramine HCl 25 mg 03/06/21 20:24 03/06/21 21:42 Diphenhydramine Hcl Elixir 12.5 Mg/5 Ml Udc PO 25 mg Q6H PRN Administration Pain Rated 1-3 Docusate Sodium 100 mg 03/07/21 09:00 03/11/21 08:56 Docusate Sodium 100 Mg Capsule PO 100 mg BID BORIS Administration Famotidine 20 mg 03/06/21 21:00 03/11/21 08:56 Famotidine 20 Mg Tablet PO 20 mg Q12HR BORIS Administration Heparin Sodium (Beef Lung) 50 units 03/07/21 09:00 03/11/21 08:56 Heparin Flush 50 Units/5 Ml Syringe IV PUSH Not Given QAM BORIS Heparin Sodium (Beef Lung) 50 units 03/06/21 13:07 Heparin Flush 50 Units/5 Ml Syringe IV PUSH PRN PRN after intermittent infusion Heparin Sodium (Beef Lung) 50 units 03/06/21 13:07 Heparin Flush 50 Units/5 Ml Syringe IV PUSH PRN PRN after blood draws Heparin Sodium (Porcine) 500 units 03/06/21 13:07 Heparin Sod Flush 500 Units/5 Ml Syringe IV PUSH PRN PRN see comments below Bumetanide 5 mg/ Sodium 100 mls @ 10 mls/hr 03/10/21 00:40 03/11/21 05:48 Chloride IV CONT 0.5 mg/hr
[2021-03-11] MEDS: ACETAMINOPHEN 325 MG TABLET 650 MG PO (12:23)
--- NOTE | 2021-03-11 12:46 | PCDIET ---
ICU Rounding Note: Patient eating poorly on clear liquid diet. MD to advance to regular diet to promote intake. Per RN, patient's family has stated patient likes Ensure Clear, apple flavor (240kcal, 8g protein). Recommend adding TID and continuing Isai BID. May need to consider supplemental nutrition support if no significant improvement. Last recorded weight is 78.2kg which is stable with last review. Bowel Motility: BM x 1 on 03/10/21. Labs Reviewed: WBC (12.1), BUN (71), Cr (5.0), Cl (114), PO4 (5.1), Alb (2.0) Meds Noted: Bumex, Diuril, Xopenex, Coreg, Colace, Pred Forte, Vancomycin, Cefepime, Pepcid, Scopolamine, Sodium Bicarbonate Additional Notes: Unstageable pressure ulcer to coccyx documented. Following daily in ICU rounds. Assessing/reassessing every 3 days.
--- NOTE | 2021-03-11 15:40 | P.PNNP_ITS ---
Progress Note: A&P Assessment and Plan (1) JOSE (acute kidney injury): Code(s): N17.9 - Acute kidney failure, unspecified Status: Acute Assessment and Plan: * suspect due to ATN from infection/abscess/bacteremia * urine electrolytes are non-prerenal * urine eosinophils negative * no critical electrolytes * making urine (with the use of bumex gtt and IV diuril) * follow renal function, UOP, and electrolytes (2) Stage 3b chronic kidney disease: Code(s): N18.32 - Chronic kidney disease, stage 3b Status: Chronic Assessment and Plan: * baseline creatinine seems to average out around 1.6 - 2.1mg/dl * however, her creatinine has fluctuated to extremes including as high as 4.5mg/dl - furthermore, it seems to resolve back to baseline with no specific intervention sometimes * due to hypertension and 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) -- attempts at ureteral stenting failed so she ended up needing bilateral nephrostomy tubes (3) Bacteremia: Code(s): R78.81 - Bacteremia Status: Acute Assessment and Plan: * as noted by blood cultures * on antibiotics * Infectious Disease consulted (4) Abdominal abscess: Status: Acute Assessment and Plan: * as noted by imaging * s/p drainage and catheter placement by IR (5) Bilateral ureteral obstruction: Code(s): N13.5 - Crossing vessel and stricture of ureter without hydronephrosis Status: Acute Assessment and Plan: * s/p percutaneous nephrostomy tubes in place * follows with Urology and IR (6) Anasarca: Code(s): R60.1 - Generalized edema Status: Acute Assessment and Plan: * secondary to her hypoalbuminemia along with 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 Subjective Date/time seen: 03/11/21 15:40 Chart reviewed since admission -- breathing/respiratory status is better but remains weak and tired; no apparent distress noted at the time of my visit; no othe acute complaints to report. Exam Narrative: Exam Narrative: General: chronically ill appearing AA female in NAD Heart: normal S1 and S2; no rub Lungs: coarse and decreased at bases Abdomen: soft, nontender, nondistended, positive bowel sounds Extremities: no cyanosis or clubbing; 2+ edema Skin: warm and dry Objective Data Vital Signs Vital Signs: Vital Signs Temp Pulse Resp BP Pulse Ox 03/11/21 14:00 76 17 97/72 L 92 03/11/21 12:47 93 03/11/21 12:00 36.3 C L 78 23 H 106/70 97 03/11/21 11:00 96 03/11/21 10:00 75 16 107/74 100 03/11/21 08:57 76 03/11/21 08:00 36.3 C L 88 24 H 115/85 100 03/11/21 07:41 74 100 03/11/21 06:00 86 15 110/82 100 03/11/21 04:00 36.6 C 71 12 102/70 100 03/11/21 02:00 97 18 114/78 98 03/11/21 00:45 74 100 03/11/21 00:00 36.4 C 85 18 113/73 93 03/10/21 22:00 82 14 114/78 97 03/10/21 20:00 36.7 C 87 16 123/83 97 03/10/21 19:40 80 19 100 03/10/21 18:00 84 12 135/88 100 Intake/Output Intake/Output: Intake & Output 03/08/21 03/09/21 03/10/21 03/11/21 23:59 23:59 23:59 23:59
--- NOTE | 2021-03-11 15:40 | PM.PNNEP ---
Progress Note: A&P Assessment and Plan (1) JOSE (acute kidney injury): Code(s): N17.9 - Acute kidney failure, unspecified Status: Acute Assessment and Plan: suspect due to ATN from infection/abscess/bacteremia urine electrolytes are non-prerenal urine eosinophils negative no critical electrolytes making urine (with the use of bumex gtt and IV diuril) follow renal function, UOP, and electrolytes (2) Stage 3b chronic kidney disease: Code(s): N18.32 - Chronic kidney disease, stage 3b Status: Chronic Assessment and Plan: baseline creatinine seems to average out around 1.6 - 2.1mg/dl however, her creatinine has fluctuated to extremes including as high as 4.5mg/dl - furthermore, it seems to resolve back to baseline with no specific intervention sometimes due to hypertension and 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) -- attempts at ureteral stenting failed so she ended up needing bilateral nephrostomy tubes (3) Bacteremia: Code(s): R78.81 - Bacteremia Status: Acute Assessment and Plan: as noted by blood cultures on antibiotics Infectious Disease consulted (4) Abdominal abscess: Status: Acute Assessment and Plan: as noted by imaging s/p drainage and catheter placement by IR (5) Bilateral ureteral obstruction: Code(s): N13.5 - Crossing vessel and stricture of ureter without hydronephrosis Status: Acute Assessment and Plan: s/p percutaneous nephrostomy tubes in place follows with Urology and IR (6) Anasarca: Code(s): R60.1 - Generalized edema Status: Acute Assessment and Plan: secondary to her hypoalbuminemia along with 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 Subjective Date/time seen: 03/11/21 15:40 Chart reviewed since admission -- breathing/respiratory status is better but remains weak and tired; no apparent distress noted at the time of my visit; no othe acute complaints to report. Exam Narrative: Exam Narrative: General: chronically ill appearing AA female in NAD Heart: normal S1 and S2; no rub Lungs: coarse and decreased at bases Abdomen: soft, nontender, nondistended, positive bowel sounds Extremities: no cyanosis or clubbing; 2+ edema Skin: warm and dry Objective Data Vital Signs Vital Signs: Vital Signs Temp Pulse Resp BP Pulse Ox 05/10/21 14:00 76 17 97/72 L 92 03/11/21 12:47 93 03/11/21 12:00 36.3 C L 78 23 H 106/70 97 03/11/21 11:00 96 03/11/21 10:00 75 16 107/74 100 03/11/21 08:57 76 03/11/21 08:00 36.3 C L 88 24 H 115/85 100 03/11/21 07:41 74 100 03/11/21 06:00 86 15 110/82 100 03/11/21 04:00 36.6 C 71 12 102/70 100 03/11/21 02:00 97 18 114/78 98 03/11/21 00:45 74 100 03/11/21 00:00 36.4 C 85 18 113/73 93 03/10/21 22:00 82 14 114/78 97 03/10/21 20:00 36.7 C 87 16 123/83 97 03/10/21 19:40 80 19 100 03/10/21 18:00 84 12 135/88 100 Intake/Output Intake/Output: Intake & Output 03/08/21 03/09/21 03/10/21 03/11/21 23:59 23:59 23:59 23:59 Intake Total 2508 1201 972 450 Output Total 122 310 1546 1300 Balance 1583 527 -1327 -850 Meds/Results Medications: Active Medications Generic Name Dose Route Start Last Admin Trade Name Freq PRN Reason Stop Dose Admin Acetaminophen 650 mg 03/06/21 20:24 03/11/21 12:23 Acetaminophen 325 Mg Tablet PO 650 mg Q4H PRN Administration Pain Rated 4-6 Artificial Tears 1 drop 03/06/21 20:24 Artificial Tears Op Soln 15 Ml Bottle EACH EYE Q4-6H PRN Dry Eyes Carvedilol 3.125 mg 03/06/21 21:00 03/11/21 08:57 Carvedilol 3.125 Mg Tablet PO 3.125 mg Q12HR BORIS Administration Chlorothiazide Sodium 500 mg 03/11/21 09:00 03/11/21 08:57 Chlorothiazi
--- NOTE | 2021-03-11 17:19 | WPDUROPN2 ---
Progress Note: A&P Assessment and Plan (1) Bilateral ureteral obstruction: Code(s): N13.5 - Crossing vessel and stricture of ureter without hydronephrosis Status: Acute Assessment and Plan: Nephrostograms normal bilaterally - tubes appropriately positioned and draining well. Discrepancy in urine output due to marked atrophy of right kidney - has consistently been that way in the past. Subjective Subjective Date/Time Seen: 03/11/21 17:19 Review of Systems Review of Systems: ROS unobtainable: Yes unobtainable due to mental status Exam Const: General: no acute distress Resp: Effort & Inspection: normal respiratory effort GI: Inspection: non-distended GI Palp: No abdominal tenderness and No Guarding due to palpation present (GI) Auscultation: normal bowel sounds Objective Data Vital Signs Vital Signs: Vital Signs - 24 hr 03/10/21 18:00 03/10/21 19:40 03/10/21 20:00 Temperature 98.1 F Pulse Rate 84 80 87 Respiratory Rate 12 19 16 Blood Pressure 135/88 123/83 Pulse Oximetry 100 100 97 03/10/21 22:00 03/11/21 00:00 03/11/21 00:45 Temperature 97.6 F Pulse Rate 82 85 74 Respiratory Rate 14 18 Blood Pressure 114/78 113/73 Pulse Oximetry 97 93 100 03/11/21 02:00 03/11/21 04:00 03/11/21 06:00 Temperature 97.8 F Pulse Rate 97 71 86 Respiratory Rate 18 12 15 Blood Pressure 114/78 102/70 110/82 Pulse Oximetry 98 100 100 03/11/21 07:41 03/11/21 08:00 03/11/21 08:57 Temperature 97.3 F L Pulse Rate 74 88 76 Respiratory Rate 24 H Blood Pressure 115/85 Pulse Oximetry 100 100 03/11/21 10:00 03/11/21 11:00 03/11/21 12:00 Temperature 97.4 F L Pulse Rate 75 78 Respiratory Rate 16 23 H Blood Pressure 107/74 106/70 Pulse Oximetry 100 96 97 03/11/21 12:47 03/11/21 14:00 03/11/21 16:00 Temperature 97.8 F Pulse Rate 76 74 Respiratory Rate 17 15 Blood Pressure 97/72 L 99/69 L Pulse Oximetry 93 92 95 Intake/Output Intake/Output: Intake & Output 03/08/21 03/09/21 03/10/21 03/11/21 23:59 23:59 23:59 23:59 Intake Total 2503 1206 972 450 Output Total 010 498 4912 1300 Balance 1583 401 -7165 -713 Meds/Results Medications: Active Medications Generic Name Dose Route Start Last Admin Trade Name Freq PRN Reason Stop Dose Admin Acetaminophen 650 mg 03/06/21 20:24 03/11/21 12:23 Acetaminophen 325 Mg Tablet PO 650 mg Q4H PRN Administration Pain Rated 4-6 Artificial Tears 1 drop 03/06/21 20:24 Artificial Tears Op Soln 15 Ml Bottle EACH EYE Q4-6H PRN Dry Eyes Carvedilol 3.125 mg 03/06/21 21:00 03/11/21 08:57 Carvedilol 3.125 Mg Tablet PO 3.125 mg Q12HR BORIS Administration Chlorothiazide Sodium 500 mg 03/11/21 09:00 03/11/21 08:57 Chlorothiazide 500 Mg Vial IV PUSH 500 mg DAILY BORIS Administration Ciprofloxacin 1 drop 03/07/21 09:55 03/11/21 08:55 Ciprofloxacin Hcl 0.3% Op Soln 2.5 Ml Btl RIGHT EYE 1 drop Q12HR BORIS Administration Diphenhydramine HCl 25 mg 03/06/21 20:24 03/06/21 21:42 Diphenhydramine Hcl Elixir 12.5 Mg/5 Ml Udc PO 25 mg Q6H PRN Administration Pain Rated 1-3 Docusate Sodium 100 mg 03/07/21 09:00 03/11/21 08:56 Docusate Sodium 100 Mg Capsule PO 100 mg BID BORIS Administration Famotidine 20 mg 03/06/21 21:00 03/11/21 08:56 Famotidine 20 Mg Tablet PO 20 mg Q12HR BORIS Administration Heparin Sodium (Beef Lung) 50 units 03/07/21 09:00 03/11/21 08:56 Heparin Flush 50 Units/5 Ml Syringe IV PUSH Not Given QAM BORIS Heparin Sodium (Beef Lung) 50 units 03/06/21 13:07 Heparin Flush 50 Units/5 Ml Syringe IV PUSH PRN PRN after intermittent infusion Heparin Sodium (Beef Lung) 50 units 03/06/21 13:07 Heparin Flush 50 Units/5 Ml Syringe IV PUSH PRN PRN after blood draws Heparin Sodium (Porcine) 500 units 03/06/21 13:07 Heparin Sod Flush 500 Units/5 Ml Syringe IV PUSH PRN PRN see comm
--- NOTE | 2021-03-11 18:37 | CONS_ITS ---
DATE OF CONSULTATION: 03/11/2021 REASON FOR CONSULTATION: Bacteremia. HISTORY OF PRESENT ILLNESS: A 60-year-old female who has bilateral nephrostomy tubes and has had several admissions for bowel obstruction with her urinalysis and cultures always being abnormal. She also has had previous UTI with bacteremia. More recently, the patient has had asymptomatic bacteriuria and I have not treated, as a result. She was readmitted to the hospital on March 06 with generalized weakness for oral intake. She underwent investigation and was found to have a fluid collection. She has been treated accordingly with IV antibiotics. She has had some mildly diminished output from the right nephrostomy tube and flushing is planned. Her hospital course has been complicated by worsening renal insufficiency with metabolic acidosis, respiratory insufficiency, protein-calorie malnutrition, adynamic ileus, generalized edema, thrombocytopenia. Her cancer has been managed with immunotherapy, though due to recurrent admissions, her schedule of antineoplastic treatment has been disrupted. She was taken to the Radiology suite yesterday and she had percutaneous drain placed and this clogged initially and then was exchanged for a 14-Singaporean catheter are evacuated fluid initially was jack, opaque, and foul smelling. She cannot provide any additional history at this time. ALLERGIES: PENICILLIN CAUSED NAUSEA AND VOMITING, OTHERS NOT PERTINENT. HABITS: Ex-smoker. No alcohol. CURRENT MEDICATIONS: No systemic immunosuppressants. HOME MEDICATIONS: List reviewed. PAST MEDICAL HISTORY: Anemia of chronic inflammation, chronic renal insufficiency, previous CHF, DVT, small-bowel obstructions, colon cancer, hypertension, AI, Port-A-Cath in place, multiple laparotomies, TAHBSO, prior BTL, cataract extractions. FAMILY HISTORY: Cancer and stroke. SOCIAL HISTORY: She is . Her daughter is at the bedside and she has other children as well. 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 REVIEW OF SYSTEMS: Edema. 14-point review is otherwise negative as recorded, not obtainable in a comprehensive fashion from the patient due to decreased level consciousness. PHYSICAL EXAMINATION: GENERAL: Middle-aged female, who appears older than her actual age. She appears in mild respiratory distress and appears generally very ill. VITAL SIGNS: Her temperature curve since arrival has been in the normal range. 76, 23, 106/70, and she is on high-flow O2 97%. SKIN: Decreased turgor. Few ecchymoses consistent with phlebotomy. No rashes. H and P indicated a sacral decubitus ulcer. I did not examine today. NODES: No cervical adenopathy. EENT: The paranasal sinuses without erythema, edema, tenderness. Dry mucous membranes with crusting of the teeth in soft palate. No thrush. NECK: There is no meningismus. No masses. LUNGS: Clear to auscultation and percussion. CARDIAC: Regular rate and rhythm. No murmur, gallop, or rub. Pulses are 1+. ABDOMEN: Diffusely tender. No guarding. No masses. She has a right lower quadrant percutaneous drain with light brown cloudy fluid drain output 100 cc since placement. EXTREMITIES: 3+ nonpitting and pitting pedal edema, 2+ at the legs. LABORATORY DATA: From the , a single blood culture was submitted and is growing VRE and Bacteroides fragilis. From March 10, blood cultures are no growth, one days incubation. Urine culture also from the mixed rachele. White blood cell count was 14.9 on rearrival, 12.1 today, hemoglobin 7.4, platelets are 68,000 up from 28. No differential done the last 2 days, but earlier showed very minimal left shift. Blood gases 7.43, 20, 63, 13, 94%. Chemistries show high chloride, low CO2, BUN 71, creatinine 5.0, similar to previous values. Leon
[2021-03-11] MEDS: LINEZOLID 600 MG/300 ML 600 MG/300 ML SOLN 300 MG IVPB (20:49)
[2021-03-12] VITALS (26 sets, daily range): BP systolic 99–122; BP diastolic 65–83; PULSE 61–80; RESP 13–24; TEMP 34.7–36.6; O2SAT 93–100
[2021-03-12 04:28] LABS: Hematocrit 21.4 % (37.0-47.0); Hemoglobin 7.2 g/dL (12.0-15.0); Immature Platelet Fraction Pct 3.8 % (0.9-11.2); Mean Corpuscular HGB Conc 33.6 g/dl (32-36); Mean Corpuscular Hemoglobin 28.5 pg (26-34); Mean Corpuscular Volume 84.6 fl (80-100); Mean Platelet Volume 11.8 fl (7.4-10.4); Platelet Count Result 51 k/mm3 (150-375); Red Blood Count 2.53 M/mm3 (4.2-5.4); Red Cell Distribution Width 17.1 % (11.5-14.5); White Blood Count 11.8 K/mm3 (4.5-10.0)
[2021-03-12 04:40] LABS: Alanine Aminotransferase 9 U/L (4-35); Albumin Level 1.9 g/dL (3.5-5.1); Alkaline Phosphatase 74 U/L (38-126); Anion Gap 6 mmol/L (8-16); Aspartate Amino Transferase 22 U/L (14-36); Bilirubin,Total 0.5 mg/dL (0.2-1.3); Blood Urea Nitrogen 71 mg/dL (7-17); Calcium 7.9 mg/dL (8.4-10.2); Carbon Dioxide 23 mmol/L (22-30); Chloride 113 mmol/L (98-107); Estimated CRCL calculation 9 ml/min; Estimated Glomerular Filt Rate 10; Glucose 107 mg/dL (65-105); Magnesium 1.9 mg/dL (1.6-2.3); Potassium 3.6 mmol/L (3.4-5.0); Sodium 142 mmol/L (137-145)
[2021-03-12] MEDS: CENTRAL LINE FLUSH 10 ML IV PUSH ×3 (05:16→20:02)
[2021-03-12] MEDS: LINEZOLID 600 MG/300 ML 600 MG/300 ML SOLN 300 MG IVPB ×2 (09:04→20:01)
[2021-03-12] MEDS: CIPROFLOXACIN HCL 0.3% OP SOLN 2.5 ML BTL 1 DROP RIGHT EYE ×2 (09:05→20:01)
[2021-03-12] MEDS: SILVERGEL (ELTA) 45 ML 1 APPLIC TOPICAL (09:05)
[2021-03-12] MEDS: CHLOROTHIAZIDE 500 MG VIAL IV PUSH (09:05)
[2021-03-12] MEDS: KETOROLAC 0.5% OP SOLN 5 ML BOTTLE 1 DROP RIGHT EYE (09:05)
[2021-03-12] MEDS: SCOPOLAMINE 1.5 MG PATCH TRANSDERM (09:06)
[2021-03-12] MEDS: carvediloL 3.125 MG TABLET PO (09:06)
[2021-03-12] MEDS: SODIUM BICARBONATE TAB 650 MG TABLET 1300 MG PO (09:07)
--- NOTE | 2021-03-12 09:44 | WPDINTPN ---
Progress Note: A&P Assessment and Plan (1) Hypoxia: Code(s): R09.02 - Hypoxemia Status: Acute Assessment and Plan: ON room air, not in any distress Chest x-ray shows persistent bilateral infiltrates suggestive of pulmonary edema/pneumonia Patient was started on Bumex infusion, D/w Nephrology, Will stop Bumex infusion Patient will not tolerate BiPAP and may need intubation if deteriorates further She is on broad-spectrum antibiotics to cover for pneumonia although it appears to be less likely -patient is on Zosyn Zyvox P.r.n. NT suction Continue bicarb to treat metabolic acidosis which may be driving some of the tachypnea (2) Pneumonia: Qualifiers: Laterality: bilateral Pneumonia type: due to unspecified organism Code(s): J18.9 - Pneumonia, unspecified organism Status: Acute Assessment and Plan: Chest x-ray shows bilateral infiltrates and cardiomegaly Broaden antibiotic coverage to cover for pneumonia -infectious disease following the patient (3) Abdominal abscess: Status: Acute Assessment and Plan: CT showed 10.2 x 6.9 x 12.7 cm fluid collection in the right abdomen of uncertain etiology, stable from 03/02/21 and new from 02/06/21. Patient received platelets transfusion yesterday. Abscess was drained by interventional radiology and drain was left in place (4) Acute on chronic renal failure: Qualifiers: Acute renal failure type: unspecified Code(s): N17.9 - Acute kidney failure, unspecified; N18.9 - Chronic kidney disease, unspecified Status: Acute Assessment and Plan: Acute kidney injury over chronic kidney disease Patient is being seen by Nephrology and Urology at this time Nephrostomies tubes are in place and draining Decreased output from right side. Dr. Teran following the patient Her baseline creatinine is around 2.0 creatinine is 5.5 this morning. Metabolic acidosis -continue bicarb (5) Bilateral ureteral obstruction: Code(s): N13.5 - Crossing vessel and stricture of ureter without hydronephrosis Status: Acute Assessment and Plan: The patient has percutaneous nephrostomies in place.. Dr. Teran with urology following (6) Protein calorie malnutrition: Code(s): E46 - Unspecified protein-calorie malnutrition Status: Acute Assessment and Plan: Secondary to metastatic cancer and also now has adynamic ileus Patient denies any nausea vomiting and is on clear liquid diet at this time although she is not eating much. -discussed with daughter, stated that she likes mashed potatoes and gravy and ensure Clear (7) Anasarca: Code(s): R60.1 - Generalized edema Status: Acute Assessment and Plan: Multifactorial likely secondary to low albumin venous obstruction and heart failure (8) Anemia: Code(s): D64.9 - Anemia, unspecified Status: Acute Assessment and Plan: Monitor and transfuse as needed (9) Thrombocytopenia: Code(s): D69.6 - Thrombocytopenia, unspecified Status: Acute Assessment and Plan: Patient received platelet transfusion for ultrasound-guided drainage of fluid collection -likely cause, severe sepsis, medications, disease process (10) Bacteremia: Code(s): R78.81 - Bacteremia Status: Acute Assessment and Plan: Blood culture 1/2 is growing bacteroides fragilis and VRE. Antibiotic changed to Zyvox by Dr. Canseco. Patient is also on Zosyn (11) Electrolyte abnormality: Code(s): E87.8 - Other disorders of electrolyte and fluid balance, not elsewhere classified Status: Acute Assessment and Plan: Replace low magnesium Additional Plan DVT prophylaxis -SCDs Discussed with Angela, patient's daughter, and updated her with patient's condition and plan of care. She started talking about issues with the [facility], the ER and all other problems except for focusing on the current issues. I had
--- NOTE | 2021-03-12 09:52 | PM.PNNEP ---
Progress Note: A&P Assessment and Plan (1) JOSE (acute kidney injury): Code(s): N17.9 - Acute kidney failure, unspecified Status: Acute Assessment and Plan: suspect due to ATN from infection/abscess/bacteremia urine electrolytes are non-prerenal urine eosinophils negative no critical electrolytes making urine (with the use of bumex gtt and IV diuril) - stop bumex gtt for now follow renal function, UOP, and electrolytes (2) Stage 3b chronic kidney disease: Code(s): N18.32 - Chronic kidney disease, stage 3b Status: Chronic Assessment and Plan: baseline creatinine seems to average out around 1.6 - 2.1mg/dl however, her creatinine has fluctuated to extremes including as high as 4.5mg/dl - furthermore, it seems to resolve back to baseline with no specific intervention sometimes due to hypertension and 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) -- attempts at ureteral stenting failed so she ended up needing bilateral nephrostomy tubes (3) Bacteremia: Code(s): R78.81 - Bacteremia Status: Acute Assessment and Plan: as noted by blood cultures on antibiotics Infectious Disease recommendations noted (4) Abdominal abscess: Status: Acute Assessment and Plan: as noted by imaging s/p drainage and catheter placement by IR (5) Bilateral ureteral obstruction: Code(s): N13.5 - Crossing vessel and stricture of ureter without hydronephrosis Status: Acute Assessment and Plan: s/p percutaneous nephrostomy tubes in place follows with Urology and IR (6) Anasarca: Code(s): R60.1 - Generalized edema Status: Acute Assessment and Plan: secondary to her hypoalbuminemia along with venouw'lymphatic obstruction from her malignancy likely to be an ongoing/chronic issue Discussed case with Dr. Monaco and Dr. Calix. Will continue to follow. Subjective Date/time seen: 03/12/21 09:52 Somewhat slow to respond to questions at the time of my visit; excellent urine output noted with use of bumex gtt; respiratory status stable if not better (good oxygen saturations on room air); no other acute issues/events overnight or earlier this AM. Exam Narrative: Exam Narrative: General: chronically ill appearing AA female in NAD Heart: normal S1 and S2; no rub Lungs: coarse and decreased at bases Abdomen: soft, nontender, nondistended, positive bowel sounds Extremities: no cyanosis or clubbing; 2 - 3+ edema in LEs Skin: warm and intact Objective Data Vital Signs Vital Signs: Vital Signs Temp Pulse Resp BP Pulse Ox 03/12/21 09:06 69 03/12/21 06:00 68 14 113/67 96 03/12/21 04:00 36.4 C 70 15 114/73 93 03/12/21 03:18 69 14 96 03/12/21 03:16 74 114/82 03/12/21 02:00 71 14 114/82 94 03/12/21 00:00 36.6 C 70 14 114/68 95 03/11/21 23:34 67 20 96 03/11/21 22:00 70 17 121/67 97 03/11/21 21:14 36.5 C 66 22 H 119/64 96 03/11/21 21:08 77 16 93 03/11/21 20:00 67 03/11/21 18:00 77 16 118/74 93 03/11/21 17:16 85 102/71 03/11/21 16:00 36.6 C 74 15 99/69 L 95 03/11/21 14:00 76 17 97/72 L 92 03/11/21 12:47 93 03/11/21 12:00 36.3 C L 78 23 H 106/70 97 03/11/21 11:00 96 03/11/21 10:00 75 16 107/74 100 Intake/Output Intake/Output: Intake & Output 03/09/21 03/10/21 03/11/21 03/12/21 23:59 23:59 23:59 23:59 Intake Total 6321 170 1283 200 Output Total 680 2300 2240 1210 Balance 521 -1328 -1220 -1010 Meds/Results Medications: Active Medications Generic Name Dose Route Start Last Admin Trade Name Freq PRN Reason Stop Dose Admin Acetaminophen 650 mg 03/06/21 20:24 03/11/21 12:23 Acetaminophen 325 Mg Tablet PO 650 mg Q4H PRN Administration Pain Rated 4-6 Artificial Tears 1 drop 03/06/21 20:24 Artificial
--- NOTE | 2021-03-12 09:59 | PM.IMPN ---
Progress Note: A&P Assessment and Plan (1) Bacteremia: Code(s): R78.81 - Bacteremia Status: Acute Assessment and Plan: Patient with 1 blood culture growing Bacteroides fragilis and VRE. Infectious Disease consulted and appreciate input. Continue IV Zosyn and Linezolid. Prognosis guarded. Discussed with copy center specialist. (2) Acute on chronic renal failure: Qualifiers: Acute renal failure type: unspecified Code(s): N17.9 - Acute kidney failure, unspecified; N18.9 - Chronic kidney disease, unspecified Status: Acute Assessment and Plan: UOP 1875 yesterday but unclear if this is symmetric output. Nephrology consulted and appreciate input. Also being followed by urology. Nephrostomy tubes remain in place and draining but with poor UOP from the right per RN (UOP 50ml overnight). Creatinine still elevated at 5.5 today. Discussed with nephrology (3) Bilateral ureteral obstruction: Code(s): N13.5 - Crossing vessel and stricture of ureter without hydronephrosis Status: Acute Assessment and Plan: Bilateral percutaneous nephrostomy tubes remain in place. Will document output from each nephrostomy tube. Appreciate help from Urology. Will continue to follow. (4) Pneumonia: Qualifiers: Laterality: bilateral Pneumonia type: due to unspecified organism Code(s): J18.9 - Pneumonia, unspecified organism Status: Acute Assessment and Plan: Imaging with bilateral infiltrates. Have materialized over the past few days. Better today by CXR review. On IV antibiotics as noted above. Less likely metastatic disease. Possibly atypical PNA like fungal or pulmonary edema. Continue to monitor. Continue respiratory treatments prn. Check sputum cx. (5) Anasarca: Code(s): R60.1 - Generalized edema Status: Acute Assessment and Plan: Most likely result of low albumin. Encourage oral intake. Will continue to follow with other treatments. (6) Protein calorie malnutrition: Code(s): E46 - Unspecified protein-calorie malnutrition Status: Acute Assessment and Plan: Poor intake at this point. Will continue to monitor. (7) Thrombocytopenia: Code(s): D69.6 - Thrombocytopenia, unspecified Status: Acute Assessment and Plan: Platelet count low at 122K on admission but then dropped 19K. She has received 2 units platelet since admission. Platelet count has dropped again 51K today. Continue to monitor. (8) Anemia: Code(s): D64.9 - Anemia, unspecified Status: Acute Assessment and Plan: Hemoglobin 7.9 on admission dropped to 6.2. She received 1 unit of packed red blood cells. Hemoglobin has been stable in the 7 range. Continue to monitor. Will monitor. (9) Abdominal mass: Code(s): R19.00 - Intra-abdominal and pelvic swelling, mass and lump, unspecified site Status: Acute Assessment and Plan: Initial CT abdomen/pelvis with 10.2cm fluid collection in right abdomen with percutaneous drain placed 03/10. 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 Treatment of acute issues as noted above. (10) Electrolyte abnormality: Code(s): E87.8 - Other disorders of electrolyte and fluid balance, not elsewhere classified Status: Acute Assessment and Plan: Potassium and magnesium currently stable. Will monitor. (11) Hypoxia: Code(s): R09.02 - Hypoxemia Status: Acute Assessment and Plan: Improved with diuresis. CXR improved. Now on room air. IV Bumex drip continued. Will monitor. (12) DVT prophylaxis: Code(s): Z29.9 - Encounter for prophylactic measures, unspecified Status: Acute Assessment and Plan: MACIEL harris. Subjective Date/time seen: 03/12/21 09:59 Interval history: 60yo female admitted wi
--- NOTE | 2021-03-12 10:52 | PCDIET ---
ICU Rounding Note: Patient with some intake yesterday, per charge nurse; however, today patient would not eat or take all medications, per RN. Discussed suboptimal intak with team. MD ordered to continue supplements (Ensure Clear TID) and encourage intake. Last recorded weight is 76.8kg which is down from last review. -I/O. Bowel Motility: Last documented BM on 03/10/21. Labs Reviewed: Hgb (7.2), Hct (21.4), Glu (107), BUN (71), Cr (5.5), Cl (113), Alb (1.9), Don Ca (9.58) Meds Noted: Bumex, Coreg, Diuril, Colace, Pepcid, Zyvox, Zosyn, Pred Forte, Sodium Bicarbonate, Scopolamine Additional Notes: COVID-19 swab pending. MD ordered Yohana Kruse. Coccyx with unstageable wound. Following daily in ICU rounds. Assessing/reassessing every 3 days.
--- NOTE | 2021-03-12 13:42 | PDONCCN ---
HPI - Date of Consult Date/Time: 03/12/21 13:42 Requesting Physician: Jonathan Monaco MD Primary Care Provider: Dilshad Denney, - Consult Narrative Reason for consult: Metastatic colorectal cancer Narrative: Dina Smith is a 60 year old female with metastatic colorectal cancer. She was on immunotherapy with Vectibix and received last treatment on January 15. Patient also has history of obstructive uropathy secondary to the tumor and had nephrostomy tube placed. Patient was brought into the hospital by EMS due to evaluation of generalized weakness. Patient had recent admission due to bowel obstruction in January of 2021. CT abdomen and pelvis done on March 07, 2021 showed 10.2 x 6.9 x 12.7 cm fluid collection in the right abdomen with with possibility of abscess. Stable peritoneal masses consistent with metastatic disease. Labs showed anemia with hemoglobin of 7.2 [place] [address]. Patient received 1 unit of packed red blood cells and 2 units of platelets. There is no evidence of bleeding. Patient is having considerable swelling in the lower extremities on the and the face. Ultrasound-guided right abdominal abscess was drained on March 10, 2021. Patient was found to have VRE in the urine. Dr. dawn was consulted. Patient is on linezolid. She is also on Zosyn. He is quite sleepy and drowsy and not able to give much history. She seems to be quite tired and fatigued. She does have generalized edema. Review of Systems - Review of Systems All systems reviewed & are unremarkable except as noted in HPI and bel - Neurologic Reports system reviewed and no additional complaints, except as documented, Reports weakness, Denies confusion, Denies syncope, Denies headache(s), Denies loss of vision, Denies numbness [facility] Medical History: Medical History (Last Reviewed 03/09/21 @ 12:03 by Andrew Garcia MD) Anemia of chronic disease Anxiety Chronic kidney disease Onset Date: ~03/2020 Baseline creatinine is between 2.0 and 2.40. Congestive heart failure Echocardiogram in March 2020 demonstrated grade 1 diastolic dysfunction with an EF of 55-60%. Left ventricular chamber was mildly enlarged. Deep vein thrombosis of right lower extremity History of small bowel obstruction Hypertension Metastatic colon cancer in female Onset Date: ~2017 Diagnosis in 2016, status post colectomy with colostomy and adjuvant chemotherapy with FOLFOX. Status post hyperthermic intraperitoneal chemotherapy with debulking surgery in 2018 done in [place]. Status post bilateral nephrostomy tube placement in August 2020 due to extrinsic compression of the ureters from a large tumor, found to be recurrent metastatic cancer. Imaging on 12/21/2020 showed a malignant mass in the sigmoid colon with pelvic lymphadenopathy and multiple peritoneal masses consistent with metastatic disease. She is currently receiving immunotherapy per Dr. Arango. Moderate aortic regurgitation Port-A-Cath in place Surgical History: Surgical History (Last Reviewed 03/09/21 @ 12:03 by Andrew Garcia MD) History of bone marrow biopsy History of laparotomy Onset Date: ~2017 Debulking surgery for metastatic colon cancer. History of laparotomy Onset Date: 02/11/21 Adhesiolysis with enterotomy and anastomosis per Dr. Miller. History of nephrostomy Bilateral nephrostomy tube placement secondary to extrinsic compression of the ureters from malignant colon cancer. History of partial colectomy Onset Date: ~2015 With colostomy and subsequent takedown. History of total abdominal hysterectomy and bilateral salpingo-oophorectomy As part of debulking surgery for recurrent colon cancer as detailed above. History of tubal ligation Status post cataract extraction of both eyes with insertion of intraocular lens Left December 2020. Right January 2021. Family History: Family History (Last Reviewed 03/09/21 @ 12:03 by Andrew Garcia MD) Grandparent Cerebrovascular acciden
[2021-03-12 18:55] LABS: SARS-CoV-2 RNA PCR Negative
[2021-03-13] VITALS (15 sets, daily range): BP systolic 107–117; BP diastolic 64–71; PULSE 59–68; RESP 9–100; TEMP 36–36.6; O2SAT 12–100
[2021-03-13 04:36] LABS: Hematocrit 21.5 % (37.0-47.0); Hemoglobin 7.1 g/dL (12.0-15.0); Immature Platelet Fraction Pct 5.5 % (0.9-11.2); Mean Corpuscular Hemoglobin 28.3 pg (26-34); Mean Corpuscular Volume 85.7 fl (80-100); Mean Platelet Volume 12.3 fl (7.4-10.4); Platelet Count Result 40 k/mm3 (150-375); Red Blood Count 2.51 M/mm3 (4.2-5.4); Red Cell Distribution Width 17.3 % (11.5-14.5); White Blood Count 10.8 K/mm3 (4.5-10.0)
[2021-03-13 04:45] LABS: Alanine Aminotransferase 9 U/L (4-35); Albumin Level 1.9 g/dL (3.5-5.1); Alkaline Phosphatase 81 U/L (38-126); Anion Gap 7 mmol/L (8-16); Aspartate Amino Transferase 18 U/L (14-36); Bilirubin,Total 0.5 mg/dL (0.2-1.3); Blood Urea Nitrogen 71 mg/dL (7-17); Calcium 7.6 mg/dL (8.4-10.2); Carbon Dioxide 24 mmol/L (22-30); Chloride 112 mmol/L (98-107); Estimated CRCL calculation 10 ml/min; Estimated Glomerular Filt Rate 10; Glucose 104 mg/dL (65-105); Magnesium 1.8 mg/dL (1.6-2.3); Potassium 3.4 mmol/L (3.4-5.0); Sodium 143 mmol/L (137-145)
[2021-03-13] MEDS: CENTRAL LINE FLUSH 10 ML IV PUSH ×3 (05:20→21:04)
--- NOTE | 2021-03-13 05:40 | PC.NURSE ---
935 out of Left Nephrostomy tube, 40 out of Right Nephrostomy tube.
--- NOTE | 2021-03-13 07:35 | P.CDI_ITS ---
CDI Query Clarification Request -Hypoxia documented - Increased oxygen requirement overnight and patient was to 8 L by nasal cannula this morning chest x-ray shows worsening pulmonary edema. Patient was started on Bumex infusion overnight and will be continued documented on 03/10. -Hypoxia, Improved with diuresis. CXR improved. Now on room air. IV Bumex drip continued documented 03/12. Please further clarify cause and acuity of hypoxia. * Acute pulmonary edema * Chronic pulmonary edema * Acute on chronic pulmonary edema * Other * Unable to determine
[2021-03-13] MEDS: CIPROFLOXACIN HCL 0.3% OP SOLN 2.5 ML BTL 1 DROP RIGHT EYE ×2 (08:26→20:47)
[2021-03-13] MEDS: KETOROLAC 0.5% OP SOLN 5 ML BOTTLE 1 DROP RIGHT EYE (08:27)
[2021-03-13] MEDS: SILVERGEL (ELTA) 45 ML 1 APPLIC TOPICAL (08:27)
[2021-03-13] MEDS: CHLOROTHIAZIDE 500 MG VIAL IV PUSH (08:29)
--- NOTE | 2021-03-13 09:00 | WPDINTPN ---
Progress Note: A&P Assessment and Plan (1) Hypoxia: Code(s): R09.02 - Hypoxemia Status: Acute Assessment and Plan: ON room air, not in any distress Chest x-ray shows improving bilateral infiltrates suggestive of pulmonary edema/pneumonia Bumex infusion discontinue on 03/12 Patient will not tolerate BiPAP and may need intubation if deteriorates further She is on broad-spectrum antibiotics to cover for pneumonia although it appears to be less likely -patient is on Zosyn Zyvox P.r.n. NT suction Continue bicarb to treat metabolic acidosis which may be driving some of the tachypnea (2) Pneumonia: Qualifiers: Pneumonia type: due to unspecified organism Laterality: bilateral Code(s): J18.9 - Pneumonia, unspecified organism Status: Acute Assessment and Plan: Chest x-ray shows bilateral infiltrates and cardiomegaly Broaden antibiotic coverage to cover for pneumonia -infectious disease following the patient (3) Abdominal abscess: Status: Acute Assessment and Plan: CT showed 10.2 x 6.9 x 12.7 cm fluid collection in the right abdomen of uncertain etiology, stable from 03/02/21 and new from 02/06/21. Patient received platelets transfusion yesterday. Abscess was drained by interventional radiology and drain was left in place (4) Acute on chronic renal failure: Qualifiers: Acute renal failure type: unspecified Code(s): N17.9 - Acute kidney failure, unspecified; N18.9 - Chronic kidney disease, unspecified Status: Acute Assessment and Plan: Acute kidney injury over chronic kidney disease Patient is being seen by Nephrology and Urology at this time Nephrostomies tubes are in place and draining Decreased output from right side, right kidneys atrophic. Dr. Teran following the patient Her baseline creatinine is around 2.0 creatinine is 5.4 this morning. Metabolic acidosis -continue bicarb (5) Bilateral ureteral obstruction: Code(s): N13.5 - Crossing vessel and stricture of ureter without hydronephrosis Status: Acute Assessment and Plan: The patient has percutaneous nephrostomies in place.. Dr. Teran with urology following (6) Protein calorie malnutrition: Code(s): E46 - Unspecified protein-calorie malnutrition Status: Acute Assessment and Plan: Secondary to metastatic cancer and also now has adynamic ileus Patient denies any nausea vomiting and is on clear liquid diet at this time although she is not eating much. -discussed with daughter, stated that she likes mashed potatoes and gravy and ensure Clear (7) Anasarca: Code(s): R60.1 - Generalized edema Status: Acute Assessment and Plan: Multifactorial likely secondary to low albumin venous obstruction and heart failure (8) Anemia: Code(s): D64.9 - Anemia, unspecified Status: Acute Assessment and Plan: Monitor and transfuse as needed -oncology following the patient, Procrit has been ordered (9) Thrombocytopenia: Code(s): D69.6 - Thrombocytopenia, unspecified Status: Acute Assessment and Plan: Patient received platelet transfusion for ultrasound-guided drainage of fluid collection -likely cause, severe sepsis, medications, disease process (10) Bacteremia: Code(s): R78.81 - Bacteremia Status: Acute Assessment and Plan: Blood culture 1/2 is growing bacteroides fragilis and VRE. Patient on Zyvox and Zosyn per Dr. Canseco. Additional Plan DVT prophylaxis -SCDs Discussed with Angela, patient's daughter, and updated her with patient's condition and plan of care. She started talking about issues with the [facility], the ER and all other problems except for focusing on the current issues. I had to redirect her and discussed with her that patient has been in the hospital almost every month since August 2020, with multiple infections which could be due to her decreased immunity, sec
--- NOTE | 2021-03-13 10:59 | PCDIET ---
ICU Rounding Note: Patient eating minimally on regular diet. Discussed during rounds. MD adding Megace and ordered increase in Ensure Clear - 2 per meal. Nursing assisting with eating and drinking. Last recorded weight is 75.3kg which is down from last review. Negative I/O noted. Bowel Motility: Last documented BM on 03/10/21. Labs Reviewed: Hgb (7.1), Hct (21.5), BUN (71), Cr (5.4), Cl (112), Alb (1.9), Don Ca (9.28) Meds Noted: Pepcid, Xopenex, Coreg, Diuril, Colace, Zyvox, Zosyn, Pred Forte, Scopolamine, Sodium Bicarbonate, Miralax, Megace Additional Notes: Coccyx with dressing; no significant change reported. Abdomen with drain. Following daily in ICU rounds. Assessing/reassessing every 3 days.
[2021-03-13] MEDS: LINEZOLID 600 MG/300 ML 600 MG/300 ML SOLN 300 MG IVPB ×2 (11:26→20:46)
--- NOTE | 2021-03-13 12:59 | PM.PNNEP ---
Progress Note: A&P Assessment and Plan (1) JOSE (acute kidney injury): Code(s): N17.9 - Acute kidney failure, unspecified Status: Acute Assessment and Plan: suspect due to ATN from infection/abscess/bacteremia urine electrolytes are non-prerenal urine eosinophils negative no critical electrolytes making urine (off bumex gtt) follow renal function, UOP, and electrolytes (2) Stage 3b chronic kidney disease: Code(s): N18.32 - Chronic kidney disease, stage 3b Status: Chronic Assessment and Plan: baseline creatinine seems to average out around 1.6 - 2.1mg/dl however, her creatinine has fluctuated to extremes including as high as 4.5mg/dl - furthermore, it seems to resolve back to baseline with no specific intervention sometimes due to hypertension and 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) -- attempts at ureteral stenting failed so she ended up needing bilateral nephrostomy tubes (3) Bacteremia: Code(s): R78.81 - Bacteremia Status: Acute Assessment and Plan: as noted by blood cultures on antibiotics Infectious Disease recommendations noted (4) Abdominal abscess: Status: Acute Assessment and Plan: as noted by imaging s/p drainage and catheter placement by IR (5) Bilateral ureteral obstruction: Code(s): N13.5 - Crossing vessel and stricture of ureter without hydronephrosis Status: Acute Assessment and Plan: s/p percutaneous nephrostomy tubes in place follows with Urology and IR (6) Anasarca: Code(s): R60.1 - Generalized edema Status: Acute Assessment and Plan: secondary to her hypoalbuminemia along with venous/lymphatic obstruction from her malignancy likely to be an ongoing/chronic issue Will continue to follow. Subjective Date/time seen: 03/13/21 12:59 No real significant change; slow to respond able eventually does so with frequent stimulation; continues to make reasonably urine output without diuretics; respiratory status appears stable if not better; no events/issues overnight or earlier this AM. Exam Narrative: Exam Narrative: General: chronically ill appearing AA female in NAD Heart: normal S1 and S2; no rub Lungs: coarse and decreased at bases Abdomen: soft, nontender, nondistended, positive bowel sounds Extremities: no cyanosis or clubbing; 3+ edema Skin: warm and intact Objective Data Vital Signs Vital Signs: Vital Signs Temp Pulse Resp BP Pulse Ox 03/13/21 10:00 62 03/13/21 08:00 36.6 C 62 11 L 107/64 100 03/13/21 07:58 100 03/13/21 06:00 60 12 112/65 100 03/13/21 04:00 36.4 C 60 14 110/69 100 03/13/21 02:00 59 L 25 H 112/69 100 03/13/21 00:00 36.2 C L 61 12 115/68 100 03/12/21 23:37 61 18 100 03/12/21 22:00 64 13 110/65 100 03/12/21 20:00 36.1 C L 79 14 121/83 100 03/12/21 18:00 68 13 122/70 100 03/12/21 16:00 35.7 C L 72 16 110/73 98 03/12/21 14:00 36.4 C 80 24 H 99/68 L 98 03/12/21 13:30 35.8 C L 03/12/21 13:00 35.7 C L Intake/Output Intake/Output: Intake & Output 03/10/21 03/11/21 03/12/21 03/13/21 23:59 23:59 23:59 23:59 Intake Total 972 1020 1018.5 400 Output Total 2300 2240 2410 1350 Balance -1328 -1220 -1391.5 -950 Meds/Results Medications: Active Medications Generic Name Dose Route Start Last Admin Trade Name Michaelq PRN Reason Stop Dose Admin Acetaminophen 650 mg 03/06/21 20:24 03/11/21 12:23 Acetaminophen 325 Mg Tablet PO 650 mg Q4H PRN Administration Pain Rated 4-6 Artificial Tears 1 drop 03/06/21 20:24 Artificial Tears Op Soln 15 Ml Bottle EACH EYE Q4-6H PRN Dry Eyes Carvedilol 3.125 mg 03/06/21 21:00 03/13/21 08:53 Carvedilol 3.125 Mg Tablet PO Not Given Q12HR [facility] Chlorothiazide Sodium 500 mg 03/11/21 09:00 03/13/21 08:29 Chlor
--- NOTE | 2021-03-13 13:41 | PM.IMPN ---
Progress Note: A&P Assessment and Plan (1) Acute respiratory failure: Code(s): J96.00 - Acute respiratory failure, unspecified whether with hypoxia or hypercapnia Status: Acute Assessment and Plan: Patilaurynn developed acute hypoxic respiratory failure since admisison. Was requiring high flow therapy with face mask at one point but improved with diuresis and abx. Etiology unclear but suspect either PNA and/or pulmonary edema. CXR reviewed today showing improvement. Now on room air. IV Bumex drip stopped. Will monitor. (2) Bacteremia: Code(s): R78.81 - Bacteremia Status: Acute Assessment and Plan: Patient with 1 blood culture growing Bacteroides fragilis and VRE. Source most likely related to the abdominal abscess. Infectious Disease consulted and appreciate their input. Continue IV Zosyn and Linezolid. Prognosis guarded. Discussed with foundation digger. (3) Abdominal abscess: Status: Acute Assessment and Plan: Initial CT abdomen/pelvis with 10.2cm fluid collection in right abdomen with percutaneous drain placed 03/10. 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 Treatment of acute issues as noted above. (4) Pneumonia: Qualifiers: Laterality: bilateral Pneumonia type: due to unspecified organism Code(s): J18.9 - Pneumonia, unspecified organism Status: Acute Assessment and Plan: Imaging with bilateral infiltrates. CXR findings new over the past few days. Better today by CXR review and thus felt related to pulmonary edema but can not exclude PNA. On IV antibiotics as noted above. Less likely metastatic disease. Continue to monitor. Continue respiratory treatments prn. (5) Acute on chronic renal failure: Qualifiers: Acute renal failure type: unspecified Code(s): N17.9 - Acute kidney failure, unspecified; N18.9 - Chronic kidney disease, unspecified Status: Acute Assessment and Plan: UOP 2400 yesterday but doubt this is symmetric output. Nephrology consulted and appreciate input. Also being followed by urology. Nephrostomy tubes remain in place and draining but with poor UOP from the right. Creatinine still elevated but stable at 5.4. Edematous but related to the low albumin. Intravascularlly depleted? Add Albumin? TPN to start. Follow. (6) Bilateral ureteral obstruction: Code(s): N13.5 - Crossing vessel and stricture of ureter without hydronephrosis Status: Acute Assessment and Plan: Bilateral percutaneous nephrostomy tubes remain in place. Unclear on urine output from each kidney but have been told samller volumes from the right. Will ask again to have each drain recorded seperately to see output from each kidney. Appreciate help from Urology. Will continue to follow. (7) Anasarca: Code(s): R60.1 - Generalized edema Status: Acute Assessment and Plan: Most likely result of low albumin. Encourage oral intake. Will continue to follow with other treatments. Add TPN. Dietary following. (8) Protein calorie malnutrition: Code(s): E46 - Unspecified protein-calorie malnutrition Status: Acute Assessment and Plan: Poor oral intake. Family wanting patient to become strong enough to resume chemo. This does not seem too realistic. Discussed with foundation digger - will start TPN. Will continue to monitor. (9) Thrombocytopenia: Code(s): D69.6 - Thrombocytopenia, unspecified Status: Acute Assessment and Plan: Platelet count low at 122K on admission but then dropped 19K. She has received 2 units platelet since admission (03/09 and 03/10). Platelet count has dropped again 40K today. Continue to monitor. Transfuse as needed. (10) Anemia: Code(s): D64.9 - Anemia, unspecified Status: Acute Assessment and Plan: Hemogl
[2021-03-13] MEDS: AMINO ACIDS 5%/DEXTROSE 15% 2,000 ML with MULTIVITAMINS-12 INJ VIAL 1 2.5 ML, MULTIVITA... 30 ML IV CONT (14:29)
[2021-03-13] MEDS: FAT EMULSIONS IV 20% 250 ML 20.83 ML IVPB (14:57)
[2021-03-13 15:16] LABS: Hematocrit 21.7 % (37.0-47.0); Hemoglobin 7.3 g/dL (12.0-15.0); Immature Platelet Fraction Pct 6.3 % (0.9-11.2); Mean Corpuscular HGB Conc 33.6 g/dl (32-36); Mean Corpuscular Hemoglobin 28.3 pg (26-34); Mean Corpuscular Volume 84.1 fl (80-100); Mean Platelet Volume 12.5 fl (7.4-10.4); Platelet Count Result 40 k/mm3 (150-375); Red Blood Count 2.58 M/mm3 (4.2-5.4); Red Cell Distribution Width 17.5 % (11.5-14.5)
[2021-03-13 15:28] LABS: Alanine Aminotransferase 9 U/L (4-35); Alkaline Phosphatase 83 U/L (38-126); Anion Gap 8 mmol/L (8-16); Aspartate Amino Transferase 18 U/L (14-36); Bilirubin,Total 0.5 mg/dL (0.2-1.3); Blood Urea Nitrogen 72 mg/dL (7-17); Calcium 7.9 mg/dL (8.4-10.2); Carbon Dioxide 24 mmol/L (22-30); Chloride 110 mmol/L (98-107); Estimated CRCL calculation 10 ml/min; Estimated Glomerular Filt Rate 10; Glucose 124 mg/dL (65-105); Magnesium 1.8 mg/dL (1.6-2.3); Potassium 3.3 mmol/L (3.4-5.0); Sodium 142 mmol/L (137-145)
[2021-03-13 16:00] LABS: Transferrin < 80 mg/dL (206-381)
[2021-03-13 17:03] LABS: Eosinophils Absolute Manual 0.22 K/mm3 (0.02-0.5); Eosinophils Percent Manual 2 % (0-4); Lymphocytes Absolute Manual 1.43 K/mm3 (1.1-4.5); Monocytes Absolute Manual 0.44 K/mm3 (0.1-0.90); Monocytes Percent Manual 4 % (3-9); Neutrophils Percent Manual 81 % (46-73); Nucleated Red Blood Cells 3 %; Platelet Estimate Decreased (Adequate); Total Cells Counted 100
[2021-03-13 17:04] LABS: Burr Cells 2+ (NORMAL); Target Cells 1+ (NORMAL)
[2021-03-13 18:14] LABS: Glucose Point of Care 134 (65-105)
[2021-03-13] MEDS: carvediloL 3.125 MG TABLET PO (20:47)
[2021-03-13] MEDS: FAMOTIDINE 20 MG TABLET PO (20:47)
[2021-03-14] VITALS (18 sets, daily range): BP systolic 103–126; BP diastolic 62–75; PULSE 56–69; RESP 10–17; TEMP 35.6–36.8; O2SAT 100; BMI 11.0
[2021-03-14 00:34] LABS: Glucose Point of Care 169 (65-105)
[2021-03-14 03:48] LABS: Basophils Percent Auto 0.1 % (0.2-1.2); Eosinophils Absolute Auto 0.1 K/mm3 (0-0.3); Eosinophils Percent Auto 0.4 % (0-4.4); Hematocrit 22.1 % (37.0-47.0); Hemoglobin 7.3 g/dL (12.0-15.0); Immature Granulocyte Absolute 0.18 K/mm3 (0.00-0.031); Immature Granulocyte Percent A 1.6 % (0-0.5); Immature Platelet Fraction Pct 6.3 % (0.9-11.2); Lymphocytes Absolute Auto 1.11 K/mm3 (0.9-3.2); Mean Corpuscular Volume 87.7 fl (80-100); Monocytes Absolute Auto 0.5 K/mm3 (0.1-0.6); Monocytes Percent Auto 4.9 % (2.6-8.5); Neutrophils Absolute Auto 9.2 K/mm3 (1.3-6.7); Nucleated Red Blood Cells Absolute Auto 0.2 K/mm3 (0.0-0.012); Nucleated Red Blood Cells Perc 1.8 % (0.0-0.2); Platelet Count Result 43 k/mm3 (150-375); Red Blood Count 2.52 M/mm3 (4.2-5.4); Red Cell Distribution Width 17.7 % (11.5-14.5); White Blood Count 11.1 K/mm3 (4.5-10.0)
[2021-03-14 03:56] LABS: Alanine Aminotransferase 11 U/L (4-35); Alkaline Phosphatase 75 U/L (38-126); Anion Gap 9 mmol/L (8-16); Aspartate Amino Transferase 19 U/L (14-36); Bilirubin,Total 0.4 mg/dL (0.2-1.3); Blood Urea Nitrogen 72 mg/dL (7-17); Calcium 7.7 mg/dL (8.4-10.2); Carbon Dioxide 24 mmol/L (22-30); Chloride 108 mmol/L (98-107); Estimated CRCL calculation 10 ml/min; Estimated Glomerular Filt Rate 10; Glucose 159 mg/dL (65-105); Magnesium 1.7 mg/dL (1.6-2.3); Phosphorus 4.3 mg/dL (2.5-4.5); Potassium 2.9 mmol/L (3.4-5.0); Sodium 141 mmol/L (137-145)
[2021-03-14 04:48] LABS: Anisocytosis 2+ (NORMAL); Platelet Estimate Decreased (Adequate)
[2021-03-14] MEDS: CENTRAL LINE FLUSH 10 ML IV PUSH ×3 (06:03→20:26)
[2021-03-14] MEDS: LINEZOLID 600 MG/300 ML 600 MG/300 ML SOLN 300 MG IVPB ×2 (08:51→20:25)
[2021-03-14] MEDS: CIPROFLOXACIN HCL 0.3% OP SOLN 2.5 ML BTL 1 DROP RIGHT EYE ×2 (08:52→20:28)
[2021-03-14] MEDS: SILVERGEL (ELTA) 45 ML 1 APPLIC TOPICAL (08:52)
[2021-03-14] MEDS: SODIUM BICARBONATE TAB 650 MG TABLET 1300 MG PO (08:55)
[2021-03-14] MEDS: KETOROLAC 0.5% OP SOLN 5 ML BOTTLE 1 DROP RIGHT EYE (08:56)
[2021-03-14] MEDS: carvediloL 3.125 MG TABLET PO (09:02)
[2021-03-14] MEDS: FAMOTIDINE 20 MG TABLET PO (09:06)
[2021-03-14] MEDS: CHLOROTHIAZIDE 500 MG VIAL IV PUSH (09:07)
[2021-03-14] MEDS: MEGESTROL ACETATE (*CHEMO) ORAL SUSP 40 MG/ML SYR 800 MG PO (09:08)
--- NOTE | 2021-03-14 10:53 | PCDIET ---
Nutrition Follow-Up Complete: Nutrition Diagnosis: Increased protein needs related to pressure ulcer as evidenced by comprehensive wound assessment and needs of 94-110g of protein daily for wound healing. Nutrition Goal: PO intake of 75% or greater to meet increased protein needs. Goal not met, as patient consumed 25% of meals or less over past 24 hours. Clinimix 5/15 has been initiated at 30mL/hr with 250mL 20% lipids which provides 1011kcal and 36g protein per day. Recommend gradual increase in Clinimix toward goal of 80mL/hr with 250mL 20% lipids for 1863kcal and 96g protein per day. Could consider changing to electrolyte containing formula (Clinimix E 5/15) if potassium remains low. Oral diet is regular with Ensure Clear supplements. If no improvement in oral intakes over the next few days with appetite stimulant, recommend discussing feeding tube placement for nutrition long-term. Last recorded weight is 73.2 kg which is down from last review. -I/O noted. Bowel Motility: Last documented BM on 03/11/21. Labs Reviewed: Hgb (7.3), Hct (22.1), Glu (159), BUN (72), Cr (5.1), K (2.9), Alb (2.0), Don Ca (9.3) Meds Noted: Coreg, Diuril, Colace, Pepcid, Megace, Zyvox, Zosyn, Sodium Bicarbonate, Pred Forte Additional Notes: Noted magnesium and phosphorus levels WNL. Coccyx ulcer without reported change. Abdominal drain still in place. Nutrition Monitoring and Evaluation: Follow up every Thursday/Thursday.
--- NOTE | 2021-03-14 12:25 | PM.PNNEP ---
Progress Note: A&P Assessment and Plan (1) JOSE (acute kidney injury): Code(s): N17.9 - Acute kidney failure, unspecified Status: Acute Assessment and Plan: suspect due to ATN from infection/abscess/bacteremia urine electrolytes are non-prerenal urine eosinophils negative no critical electrolytes making urine (off diuretics) follow renal function, UOP, and electrolytes (2) Stage 3b chronic kidney disease: Code(s): N18.32 - Chronic kidney disease, stage 3b Status: Chronic Assessment and Plan: baseline creatinine seems to average out around 1.6 - 2.1mg/dl however, her creatinine has fluctuated to extremes including as high as 4.5mg/dl - furthermore, it seems to resolve back to baseline with no specific intervention sometimes due to hypertension and 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) -- attempts at ureteral stenting failed so she ended up needing bilateral nephrostomy tubes (3) Bacteremia: Code(s): R78.81 - Bacteremia Status: Acute Assessment and Plan: as noted by blood cultures on antibiotics Infectious Disease recommendations noted (4) Abdominal abscess: Status: Acute Assessment and Plan: as noted by imaging s/p drainage and catheter placement by IR (5) Bilateral ureteral obstruction: Code(s): N13.5 - Crossing vessel and stricture of ureter without hydronephrosis Status: Acute Assessment and Plan: s/p percutaneous nephrostomy tubes in place follows with Urology and IR (6) Anasarca: Code(s): R60.1 - Generalized edema Status: Acute Assessment and Plan: secondary to her hypoalbuminemia along with 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 Subjective Date/time seen: 03/14/21 12:25 No real significant change since I last saw her -- awake but does not really answer any of my questions; respiratory status remains stable; no significant issues/events overnight or earlier this AM. Exam Narrative: Exam Narrative: General: chronically ill appearing AA female in NAD Heart: normal S1 and S2; no rub Lungs: decreased at bases Abdomen: soft, nontender, nondistended, positive bowel sounds Extremities: no cyanosis or clubbing; 2 - 3+ edema in LEs Skin: no rash Objective Data Vital Signs Vital Signs: Vital Signs Temp Pulse Resp BP Pulse Ox 03/14/21 12:00 36.3 C L 60 12 116/69 100 03/14/21 10:00 63 03/14/21 09:02 69 03/14/21 08:00 36.8 C 65 12 111/64 100 03/14/21 06:00 58 L 03/14/21 04:00 36.3 C L 62 11 L 107/62 100 03/14/21 02:00 58 L 03/14/21 00:00 35.9 C L 59 L 10 L 103/65 100 03/13/21 22:00 63 10 L 113/69 100 03/13/21 20:47 63 03/13/21 20:00 36.0 C L 64 12 115/71 100 03/13/21 19:55 100 03/13/21 18:00 36.4 C L 61 11 L 110/68 100 03/13/21 16:00 60 03/13/21 14:00 66 100 H 114/70 12 L Intake/Output Intake/Output: Intake & Output 03/11/21 03/12/21 03/13/21 03/14/21 23:59 23:59 23:59 23:59 Intake Total 1020 1018.5 830 1220 Output Total 2240 2410 2190 1600 Balance -1220 -1391.5 -1360 -380 Meds/Results Medications: Active Medications Generic Name Dose Route Start Last Admin Trade Name Freq PRN Reason Stop Dose Admin Acetaminophen 650 mg 03/06/21 20:24 03/11/21 12:23 Acetaminophen 325 Mg Tablet PO 650 mg Q4H PRN Administration Pain Rated 4-6 Artificial Tears 1 drop 03/06/21 20:24 Artificial Tears Op Soln 15 Ml Bottle EACH EYE Q4-6H PRN Dry Eyes Carvedilol 3.125 mg 03/06/21 21:00 03/14/21 09:02 Carvedilol 3.125 Mg Tablet PO 3.125 mg Q12HR BORIS Administration Chlorothiazide Sodium 500 mg 03/11/21 09:00 03/14/21 09:07 Chlorothiazide 500 Mg Vial IV PUSH 500 mg DAILY BORIS Administration Ciproflox
[2021-03-14 12:53] LABS: Glucose Point of Care 147 (65-105)
[2021-03-14 12:53] LABS: Glucose Point of Care 143 (65-105)
--- NOTE | 2021-03-14 13:33 | PM.IMPN ---
Progress Note: A&P Assessment and Plan (1) Acute respiratory failure: Code(s): J96.00 - Acute respiratory failure, unspecified whether with hypoxia or hypercapnia Status: Acute Assessment and Plan: Patient developed acute hypoxic respiratory failure since admission. Was requiring high flow therapy with face mask at one point but improved with diuresis and abx. Etiology unclear but suspect either PNA and/or pulmonary edema. CXR reviewed today and again showing improvement. Now on room air. IV Bumex drip stopped. Will monitor. (2) Bacteremia: Code(s): R78.81 - Bacteremia Status: Acute Assessment and Plan: Patient with 1 blood culture growing Bacteroides fragilis and VRE. Source most likely related to the abdominal abscess. Infectious Disease consulted and appreciate their input. Continue IV Zosyn and Linezolid. Prognosis guarded. Discussed with general science teacher. (3) Abdominal abscess: Status: Acute Assessment and Plan: Initial CT abdomen/pelvis with 10.2cm fluid collection in right abdomen with percutaneous drain placed 03/10. 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 Treatment of acute issues as noted above. (4) Pneumonia: Qualifiers: Laterality: bilateral Pneumonia type: due to unspecified organism Code(s): J18.9 - Pneumonia, unspecified organism Status: Acute Assessment and Plan: Imaging with bilateral infiltrates. CXR findings new over the past few days. Better again today by CXR review and thus felt related to pulmonary edema but can not exclude PNA. On IV antibiotics as noted above. Less likely metastatic disease. Continue to monitor. Continue respiratory treatments prn. (5) Acute on chronic renal failure: Qualifiers: Acute renal failure type: unspecified Code(s): N17.9 - Acute kidney failure, unspecified; N18.9 - Chronic kidney disease, unspecified Status: Acute Assessment and Plan: UOP 2100 yesterday but doubt this is symmetric output. Nephrology consulted and appreciate input. Also being followed by urology. Nephrostomy tubes remain in place and draining but with poor UOP from the right. Creatinine still elevated but better at 5.1. Edematous but related to the low albumin. Remains on Diuril IV. Continue TPN. Blood transfusion today. Consider ALbumin. Follow. (6) Bilateral ureteral obstruction: Code(s): N13.5 - Crossing vessel and stricture of ureter without hydronephrosis Status: Acute Assessment and Plan: Bilateral percutaneous nephrostomy tubes remain in place. Unclear on urine output from each kidney but have been told samller volumes from the right. Appreciate help from Urology. Will continue to follow. (7) Anasarca: Code(s): R60.1 - Generalized edema Status: Acute Assessment and Plan: Most likely result of low albumin. Encourage oral intake. Will continue to follow with other treatments. Continue TPN. Dietary following. (8) Protein calorie malnutrition: Code(s): E46 - Unspecified protein-calorie malnutrition Status: Acute Assessment and Plan: Poor oral intake. Family wanting patient to become strong enough to resume chemo. This does not seem too realistic. TPN started; continue the same. Will continue to monitor. (9) Thrombocytopenia: Code(s): D69.6 - Thrombocytopenia, unspecified Status: Acute Assessment and Plan: Platelet count low at 122K on admission but then dropped 19K. She has received 2 units platelet since admission (03/09 and 03/10). Platelet count has dropped again 40K but now stable. Continue to monitor. Transfuse as needed. (10) Anemia: Code(s): D64.9 - Anemia, unspecified Status: Acute Assessment and Plan: Hemoglobin 7.9 on admission but dropped to 6.2. Probably r
--- NOTE | 2021-03-14 14:59 | PC.NURSE ---
Updated daughter, Manas, on plan of care and patient condition.
[2021-03-14 15:25] LABS: Triglycerides 42 mg/dL (<150)
[2021-03-14] MEDS: AMINO ACIDS 5%/DEXTROSE 15% 2,000 ML with MULTIVITAMINS-12 INJ VIAL 1 2.5 ML, MULTIVITA... 45 ML IV CONT (15:28)
[2021-03-14] MEDS: FAT EMULSIONS IV 20% 250 ML 20.83 ML IVPB (16:43)
[2021-03-14 19:02] LABS: Glucose Point of Care 137 (65-105)
[2021-03-14] MEDS: BUMETANIDE INJ 1 MG/4 ML VIAL IV PUSH (20:41)
[2021-03-14 23:50] LABS: Glucose Point of Care 149 (65-105)
[2021-03-15] VITALS (15 sets, daily range): BP systolic 111–135; BP diastolic 68–92; PULSE 57–77; RESP 11–18; TEMP 36.1–36.4; O2SAT 98–100
--- NOTE | 2021-03-15 04:41 | PC.NURSE ---
Left Nephrostomy tube 1325 Right Neprhostomy tube 50.
[2021-03-15 05:00] LABS: Hematocrit 27.7 % (37.0-47.0); Hemoglobin 9.2 g/dL (12.0-15.0); Immature Platelet Fraction Pct 6.2 % (0.9-11.2); Mean Corpuscular HGB Conc 33.2 g/dl (32-36); Mean Corpuscular Hemoglobin 29.4 pg (26-34); Mean Corpuscular Volume 88.5 fl (80-100); Platelet Count Result 31 k/mm3 (150-375); Red Blood Count 3.13 M/mm3 (4.2-5.4); Red Cell Distribution Width 17.1 % (11.5-14.5); White Blood Count 12.6 K/mm3 (4.5-10.0)
[2021-03-15] MEDS: CENTRAL LINE FLUSH 10 ML IV PUSH ×3 (05:36→20:23)
[2021-03-15 05:51] LABS: Alanine Aminotransferase 11 U/L (4-35); Alkaline Phosphatase 69 U/L (38-126); Anion Gap 8 mmol/L (8-16); Aspartate Amino Transferase 18 U/L (14-36); Bilirubin,Total 0.4 mg/dL (0.2-1.3); Blood Urea Nitrogen 71 mg/dL (7-17); Calcium 7.3 mg/dL (8.4-10.2); Carbon Dioxide 23 mmol/L (22-30); Chloride 107 mmol/L (98-107); Estimated CRCL calculation 11 ml/min; Estimated Glomerular Filt Rate 11; Glucose 159 mg/dL (65-105); Magnesium 1.5 mg/dL (1.6-2.3); Phosphorus 3.7 mg/dL (2.5-4.5); Potassium 2.8 mmol/L (3.4-5.0); Sodium 138 mmol/L (137-145)
--- NOTE | 2021-03-15 08:16 | PCDIET ---
Nutrition Follow-Up Complete: Nutrition Diagnosis: Increased protein needs related to pressure ulcer as evidence by comprehensive wound assessment and needs of 94-110g of protein daily for wound healing Nutrition Goal: PO intake of 75% or greater to meet increased protein needs Goal not met. New goal: Patient to meet estimated nutritional needs. Clinimix 5/15 increased to 45mL/hr with ordered goal of 60mL/hr. 250mL 20% lipids continue. Ordered goal will provide 1522kcal and 72g protein. No improvement in oral intake thus far with Megace. If continued aggressive nutritional therapy is desired, recommend feeding tube placement (if able, given abdominal mass). Otherwise, would continue TPN and consider changing to electrolyte containing formulation (Clinimix E). Last recorded weight is 73.2 kg which is down from last review. -I/O. Bowel Motility: Last documented BM on 03/10/21. Labs Reviewed: WBC (12.6), Hgb (9.2), Hct (27.7), Glu (159), BUN (71), Cr (4.7), K (2.8), Alb (2.0), Don Ca (9.1), Mg (1.5) Meds Noted: Coreg, Diuril, Xopenex, Zyvox, Magnesium Sulfate, Megace, Zosyn, KCl, Pred Forte, Sodium Bicarbonate Additional Notes: Abdominal drain in place. No change in coccyx wound. Nutrition Monitoring and Evaluation: Follow up every Thursday/Thursday.
[2021-03-15] MEDS: KETOROLAC 0.5% OP SOLN 5 ML BOTTLE 1 DROP RIGHT EYE (08:41)
[2021-03-15] MEDS: SILVERGEL (ELTA) 45 ML 1 APPLIC TOPICAL (08:41)
[2021-03-15] MEDS: CIPROFLOXACIN HCL 0.3% OP SOLN 2.5 ML BTL 1 DROP RIGHT EYE ×2 (08:42→20:18)
[2021-03-15] MEDS: CHLOROTHIAZIDE 500 MG VIAL IV PUSH (08:42)
[2021-03-15] MEDS: LINEZOLID 600 MG/300 ML 600 MG/300 ML SOLN 300 MG IVPB ×2 (08:56→20:22)
[2021-03-15] MEDS: MAGNESIUM SULF 2 GM/WATER 50ML 2 GM/50 ML BAG IVPB ×2 (08:56→18:21)
[2021-03-15] MEDS: SCOPOLAMINE 1.5 MG PATCH TRANSDERM (10:41)
--- NOTE | 2021-03-15 11:53 | P.PNNP_ITS ---
Progress Note: A&P Assessment and Plan (1) JOSE (acute kidney injury): Code(s): N17.9 - Acute kidney failure, unspecified Status: Acute Assessment and Plan: * suspect due to ATN from infection/abscess/bacteremia * urine electrolytes are non-prerenal * urine eosinophils negative * no critical electrolytes * making urine (off diuretics) * follow renal function, UOP, and electrolytes (2) Stage 3b chronic kidney disease: Code(s): N18.32 - Chronic kidney disease, stage 3b Status: Chronic Assessment and Plan: * baseline creatinine seems to average out around 1.6 - 2.1mg/dl * however, her creatinine has fluctuated to extremes including as high as 4.5mg/dl - furthermore, it seems to resolve back to baseline with no specific intervention sometimes * due to hypertension and 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) -- attempts at ureteral stenting failed so she ended up needing bilateral nephrostomy tubes (3) Hypokalemia: Code(s): E87.6 - Hypokalemia Status: Acute Assessment and Plan: * due to poor oral intake and previous diuresis * replete as tolerated (oral versus IV) * follow trend (4) Bacteremia: Code(s): R78.81 - Bacteremia Status: Acute Assessment and Plan: * as noted by blood cultures * on antibiotics * Infectious Disease recommendations noted (5) Abdominal abscess: Status: Acute Assessment and Plan: * as noted by imaging * s/p drainage and catheter placement by IR (6) Bilateral ureteral obstruction: Code(s): N13.5 - Crossing vessel and stricture of ureter without hydronephrosis Status: Acute Assessment and Plan: * s/p percutaneous nephrostomy tubes in place * follows with Urology and IR (7) Anasarca: Code(s): R60.1 - Generalized edema Status: Acute Assessment and Plan: * secondary to her hypoalbuminemia along with 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 Subjective Date/time seen: 03/15/21 11:53 Seems a bit more awake today but not really answering any of my questions at the time of my visit; nursing reports that she is not really eating anything either Exam Narrative: Exam Narrative: General: chronically ill appearing AA female in NAD Heart: normal S1 and S2; no rub Lungs: decreased at bases Abdomen: soft, nontender, nondistended, positive bowel sounds Extremities: no cyanosis or clubbing; 2 - 3+ edema in LEs Skin: no rash Objective Data Vital Signs Vital Signs: Vital Signs Temp Pulse Resp BP Pulse Ox 03/15/21 10:00 58 L 03/15/21 09:00 60 03/15/21 08:00 36.4 C L 58 L 12 112/80 100 03/15/21 06:00 60 03/15/21 04:00 36.3 C L 60 13 135/68 98 03/15/21 03:24 61 12 100 03/15/21 02:00 62 03/15/21 00:00 36.4 C L 62 11 L 116/71 100 03/14/21 23:24 61 13 100 03/14/21 22:00 58 L 03/14/21 20:05 36.0 C L 63 12 126/68 100 03/14/21 20:00 35.8 C L 62 14 126/68 100 03/14/21 19:45 100 03/14/21 19:05 35.6 C L 65 12 116/75 100 03/14/21 18:45 35.6 C L 68 15 122/71 100 03/14/21 18:00 63 03/14/21 16:00 35.6 C L 59 L 17 114
--- NOTE | 2021-03-15 11:53 | PM.PNNEP ---
Progress Note: A&P Assessment and Plan (1) JOSE (acute kidney injury): Code(s): N17.9 - Acute kidney failure, unspecified Status: Acute Assessment and Plan: suspect due to ATN from infection/abscess/bacteremia urine electrolytes are non-prerenal urine eosinophils negative no critical electrolytes making urine (off diuretics) follow renal function, UOP, and electrolytes (2) Stage 3b chronic kidney disease: Code(s): N18.32 - Chronic kidney disease, stage 3b Status: Chronic Assessment and Plan: baseline creatinine seems to average out around 1.6 - 2.1mg/dl however, her creatinine has fluctuated to extremes including as high as 4.5mg/dl - furthermore, it seems to resolve back to baseline with no specific intervention sometimes due to hypertension and 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) -- attempts at ureteral stenting failed so she ended up needing bilateral nephrostomy tubes (3) Hypokalemia: Code(s): E87.6 - Hypokalemia Status: Acute Assessment and Plan: due to poor oral intake and previous diuresis replete as tolerated (oral versus IV) follow trend (4) Bacteremia: Code(s): R78.81 - Bacteremia Status: Acute Assessment and Plan: as noted by blood cultures on antibiotics Infectious Disease recommendations noted (5) Abdominal abscess: Status: Acute Assessment and Plan: as noted by imaging s/p drainage and catheter placement by IR (6) Bilateral ureteral obstruction: Code(s): N13.5 - Crossing vessel and stricture of ureter without hydronephrosis Status: Acute Assessment and Plan: s/p percutaneous nephrostomy tubes in place follows with Urology and IR (7) Anasarca: Code(s): R60.1 - Generalized edema Status: Acute Assessment and Plan: secondary to her hypoalbuminemia along with 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 Subjective Date/time seen: 03/15/21 11:53 Seems a bit more awake today but not really answering any of my questions at the time of my visit; nursing reports that she is not really eating anything either Exam Narrative: Exam Narrative: General: chronically ill appearing AA female in NAD Heart: normal S1 and S2; no rub Lungs: decreased at bases Abdomen: soft, nontender, nondistended, positive bowel sounds Extremities: no cyanosis or clubbing; 2 - 3+ edema in LEs Skin: no rash Objective Data Vital Signs Vital Signs: Vital Signs Temp Pulse Resp BP Pulse Ox 03/15/21 10:00 58 L 03/15/21 09:00 60 03/15/21 08:00 36.4 C L 58 L 12 112/80 100 03/15/21 06:00 60 03/15/21 04:00 36.3 C L 60 13 135/68 98 03/15/21 03:24 61 12 100 03/15/21 02:00 62 03/15/21 00:00 36.4 C L 62 11 L 116/71 100 03/14/21 23:24 61 13 100 03/14/21 22:00 58 L 03/14/21 20:05 36.0 C L 63 12 126/68 100 03/14/21 20:00 35.8 C L 62 14 126/68 100 03/14/21 19:45 100 03/14/21 19:05 35.6 C L 65 12 116/75 100 03/14/21 18:45 35.6 C L 68 15 122/71 100 03/14/21 18:00 63 03/14/21 16:00 35.6 C L 59 L 17 114/69 100 03/14/21 14:00 56 L 03/14/21 12:00 36.3 C L 65 12 116/69 100 Intake/Output Intake/Output: Intake & Output 03/12/21 03/13/21 03/14/21 03/15/21 23:59 23:59 23:59 23:59 Intake Total 1018.5 830 2302 750 Output Total 2410 2190 2340 1780 Balance -1391.5 -1360 -38 -1030 Meds/Results Medications: Active Medications Generic Name Dose Route Start Last Admin Trade Name Freq PRN Reason Stop Dose Admin Acetaminophen 650 mg 03/06/21 20:24 03/11/21 12:23 Acetaminophen 325 Mg Tablet PO 650 mg Q4H PRN Administration Pain Rated 4-6 Artificial Tears 1 drop 03/06/21 20:24 Artificial Tears Op Soln 15 Ml Bottle
[2021-03-15 12:31] LABS: Glucose Point of Care 158 (65-105)
[2021-03-15 12:36] LABS: Magnesium 1.9 mg/dL (1.6-2.3); Potassium 3.1 mmol/L (3.4-5.0)
[2021-03-15] MEDS: AMINO ACIDS 5%/DEXTROSE 15% 2,000 ML with MULTIVITAMINS-12 INJ VIAL 1 2.5 ML, MULTIVITA... 60 ML IV CONT (15:24)
[2021-03-15] MEDS: FAT EMULSIONS IV 20% 250 ML 20.83 ML IVPB (15:25)
--- NOTE | 2021-03-15 16:44 | PM.IMPN ---
Progress Note: A&P Assessment and Plan (1) Acute respiratory failure: Code(s): J96.00 - Acute respiratory failure, unspecified whether with hypoxia or hypercapnia Status: Acute Assessment and Plan: Patient developed acute hypoxic respiratory failure since admission. Was requiring high flow therapy with face mask at one point but improved with diuresis and abx. Etiology unclear but suspect either PNA and/or pulmonary edema. Serial CXR showing improvement. Now on room air. Resolved. Continue to monitor. (2) Bacteremia: Code(s): R78.81 - Bacteremia Status: Acute Assessment and Plan: Patient with 1 blood culture growing Bacteroides fragilis and VRE. Source most likely related to the abdominal abscess. Infectious Disease consulted and appreciate their input. Continue IV Zosyn and Linezolid. Prognosis guarded. (3) Abdominal abscess: Status: Acute Assessment and Plan: Initial CT abdomen/pelvis 03/07/21 with 10.2cm fluid collection in right abdomen with percutaneous drain placed 03/10. 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 Treatment of acute issues as noted above. No BMs so will order dulcolax suppositories. (4) Pneumonia: Qualifiers: Pneumonia type: due to unspecified organism Laterality: bilateral Code(s): J18.9 - Pneumonia, unspecified organism Status: Acute Assessment and Plan: Imaging with bilateral infiltrates. CXR findings new over the past few days. CXR slowly improving felt related to pulmonary edema but can not exclude PNA. Weaned to room air. On IV antibiotics as noted above. Less likely metastatic disease. Continue to monitor. Continue respiratory treatments prn. (5) Acute on chronic renal failure: Qualifiers: Acute renal failure type: unspecified Code(s): N17.9 - Acute kidney failure, unspecified; N18.9 - Chronic kidney disease, unspecified Status: Acute Assessment and Plan: UOP 2330 yesterday. Nephrology and Urology consulted and appreciate input. Nephrostomy tubes remain in place and draining but with poor UOP from the right. Creatinine continues to trend down slowly and today at 4.7. Edematous but related to the low albumin. Remains on Diuril IV. Continue TPN. Consider Albumin and Bumex. Follow. (6) Bilateral ureteral obstruction: Code(s): N13.5 - Crossing vessel and stricture of ureter without hydronephrosis Status: Acute Assessment and Plan: Bilateral percutaneous nephrostomy tubes in place. Unclear on urine output from each kidney but have been told smaller volumes from the right (that is more chronic issue). Appreciate help from Urology. Will continue to follow. (7) Anasarca: Code(s): R60.1 - Generalized edema Status: Acute Assessment and Plan: Most likely result of low albumin. Albumin 2.0, Encourage oral intake. Will continue to follow with other treatments. Continue TPN. Dietary following. (8) Protein calorie malnutrition: Code(s): E46 - Unspecified protein-calorie malnutrition Status: Acute Assessment and Plan: Poor oral intake. Family wanting patient to become strong enough to resume chemo. This does not seem too realistic. TPN started and volume increased to full today. Will continue to monitor.Continue Megace (9) Thrombocytopenia: Code(s): D69.6 - Thrombocytopenia, unspecified Status: Acute Assessment and Plan: Platelet count low at 122K on admission but then dropped 19K. She has received 2 units platelet since admission (03/09 and 03/10). Platelet count has dropped again 31K. No evidence of bleeding. Continue to monitor. Transfuse as needed. (10) Anemia: Code(s): D64.9 - Anemia, unspecified Status: Acute Assessment and Plan: Hemoglobin 7.9 on admission but dropped to 6.2. Prob
[2021-03-15] MEDS: BISACODYL 10 MG SUPPOSITORY RECTAL (18:22)
[2021-03-15 18:55] LABS: Glucose Point of Care 166 (65-105)
[2021-03-15] MEDS: carvediloL 3.125 MG TABLET PO (20:18)
[2021-03-16] VITALS (13 sets, daily range): BP systolic 118–126; BP diastolic 75–82; PULSE 64–85; RESP 14–18; TEMP 35.9–36.2; O2SAT 98–100
[2021-03-16 00:23] LABS: Glucose Point of Care 161 (65-105)
[2021-03-16] MEDS: CENTRAL LINE FLUSH 10 ML IV PUSH ×3 (05:51→21:18)
[2021-03-16 06:24] LABS: Alanine Aminotransferase 9 U/L (4-35); Alkaline Phosphatase 63 U/L (38-126); Anion Gap 7 mmol/L (8-16); Aspartate Amino Transferase 15 U/L (14-36); Bilirubin,Total 0.4 mg/dL (0.2-1.3); Blood Urea Nitrogen 66 mg/dL (7-17); Calcium 7.2 mg/dL (8.4-10.2); Carbon Dioxide 23 mmol/L (22-30); Chloride 105 mmol/L (98-107); Estimated CRCL calculation 12 ml/min; Estimated Glomerular Filt Rate 13; Glucose 168 mg/dL (65-105); Lipase 93 U/L (23-300); Magnesium 1.9 mg/dL (1.6-2.3); Phosphorus 2.8 mg/dL (2.5-4.5); Sodium 135 mmol/L (137-145)
[2021-03-16] MEDS: BISACODYL 10 MG SUPPOSITORY RECTAL (09:04)
[2021-03-16] MEDS: KETOROLAC 0.5% OP SOLN 5 ML BOTTLE 1 DROP RIGHT EYE (09:05)
[2021-03-16] MEDS: FAMOTIDINE 20 MG/2 ML VIAL IV PUSH ×2 (09:05→21:18)
[2021-03-16] MEDS: CIPROFLOXACIN HCL 0.3% OP SOLN 2.5 ML BTL 1 DROP RIGHT EYE ×2 (09:05→21:17)
[2021-03-16] MEDS: CHLOROTHIAZIDE 500 MG VIAL IV PUSH (09:05)
[2021-03-16] MEDS: LINEZOLID 600 MG/300 ML 600 MG/300 ML SOLN 300 MG IVPB ×2 (09:06→21:15)
[2021-03-16] MEDS: SILVERGEL (ELTA) 45 ML 1 APPLIC TOPICAL (09:06)
[2021-03-16] MEDS: WATER, STERILE FOR INJECTION 10 ML VIAL 20 ML XX (09:22)
--- NOTE | 2021-03-16 11:43 | PM.IMPN ---
Progress Note: A&P Assessment and Plan (1) Acute respiratory failure: Code(s): J96.00 - Acute respiratory failure, unspecified whether with hypoxia or hypercapnia Status: Acute Assessment and Plan: Patient developed acute hypoxic respiratory failure since admission. Was requiring high flow therapy with face mask at one point but improved with diuresis and abx. Etiology unclear but suspect either PNA and/or pulmonary edema. Serial CXR showing improvement with diuretic therapy. Now on room air. Resolved. Continue to monitor. (2) Bacteremia: Code(s): R78.81 - Bacteremia Status: Acute Assessment and Plan: Patient with 1 blood culture growing Bacteroides fragilis and VRE. Source most likely related to the abdominal abscess. Infectious Disease consulted and appreciate their input. Continue IV Zosyn and Linezolid. Prognosis guarded. (3) Abdominal abscess: Status: Acute Assessment and Plan: Initial CT abdomen/pelvis 03/07/21 with 10.2cm fluid collection in right abdomen with percutaneous drain placed 03/10. 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 Treatment of acute issues as noted above. BM on 03/11. Continue dulcolax suppositories. (4) Pneumonia: Qualifiers: Laterality: bilateral Pneumonia type: due to unspecified organism Code(s): J18.9 - Pneumonia, unspecified organism Status: Acute Assessment and Plan: Imaging showing chest with bilateral infiltrates. CXR findings were new. CXR slowly improving felt related to pulmonary edema but can not exclude PNA. Weaned to room air. On IV antibiotics as noted above. Less likely metastatic disease. Continue to monitor. Continue respiratory treatments prn. (5) Acute on chronic renal failure: Qualifiers: Acute renal failure type: unspecified Code(s): N17.9 - Acute kidney failure, unspecified; N18.9 - Chronic kidney disease, unspecified Status: Acute Assessment and Plan: UOP 2655 yesterday. Nephrology and Urology consulted and appreciate input. Nephrostomy tubes remain in place and draining. Creatinine continues to trend down slowly and today at 4.2. Edematous but related to the low albumin. Remains on Diuril IV. Continue TPN. (6) Bilateral ureteral obstruction: Code(s): N13.5 - Crossing vessel and stricture of ureter without hydronephrosis Status: Acute Assessment and Plan: Bilateral percutaneous nephrostomy tubes in place. Unclear on urine output from each kidney but have been told smaller volumes from the right is more of a chronic issue. Appreciate help from Urology. Will continue to follow. (7) Anasarca: Code(s): R60.1 - Generalized edema Status: Acute Assessment and Plan: Most likely result of low albumin. Albumin 2.0. Encourage oral intake. Will continue to follow with other treatments. Continue TPN. Dietary following. (8) Protein calorie malnutrition: Code(s): E46 - Unspecified protein-calorie malnutrition Status: Acute Assessment and Plan: Poor oral intake. Family wanting patient to become strong enough to resume chemo. This does not seem too realistic. TPN started and volume increased to full yesterday. Will continue to monitor. Continue Megace. Continue TPN. (9) Thrombocytopenia: Code(s): D69.6 - Thrombocytopenia, unspecified Status: Acute Assessment and Plan: Platelet count low at 122K on admission but then dropped 19K. She has received 2 units platelet since admission (03/09 and 03/10). Platelet count has dropped again 31K yesterday. No evidence of bleeding. Continue to monitor. Transfuse as needed. Plt count down to 26K. Repeat in am. (10) Anemia: Code(s): D64.9 - Anemia, unspecified Status: Acute Assessment and Plan: Hemoglobin 7.9 on admission bu
--- NOTE | 2021-03-16 12:45 | P.PNNP_ITS ---
Progress Note: A&P Assessment and Plan (1) JOSE (acute kidney injury): Code(s): N17.9 - Acute kidney failure, unspecified Status: Acute Assessment and Plan: * suspect due to ATN from infection/abscess/bacteremia * urine electrolytes are non-prerenal * urine eosinophils negative * no critical electrolytes * making urine (off diuretics) * follow renal function, UOP, and electrolytes (2) Stage 3b chronic kidney disease: Code(s): N18.32 - Chronic kidney disease, stage 3b Status: Chronic Assessment and Plan: * baseline creatinine seems to average out around 1.6 - 2.1mg/dl * however, her creatinine has fluctuated to extremes including as high as 4.5mg/dl - furthermore, it seems to resolve back to baseline with no specific intervention sometimes * due to hypertension and 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) -- attempts at ureteral stenting failed so she ended up needing bilateral nephrostomy tubes (3) Hypokalemia: Code(s): E87.6 - Hypokalemia Status: Acute Assessment and Plan: * due to poor oral intake and previous diuresis * replete as tolerated (oral versus IV) * magnesium okay * follow trend (4) Bacteremia: Code(s): R78.81 - Bacteremia Status: Acute Assessment and Plan: * as noted by blood cultures * on antibiotics * Infectious Disease recommendations noted (5) Abdominal abscess: Status: Acute Assessment and Plan: * as noted by imaging * s/p drainage and catheter placement by IR (6) Bilateral ureteral obstruction: Code(s): N13.5 - Crossing vessel and stricture of ureter without hydronephrosis Status: Acute Assessment and Plan: * s/p percutaneous nephrostomy tubes in place * follows with Urology and IR (7) Anasarca: Code(s): R60.1 - Generalized edema Status: Acute Assessment and Plan: * secondary to her hypoalbuminemia along with 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 Subjective Date/time seen: 03/16/21 12:45 No apparent issues or problems noted overnight; continues not to eat and apparently now not taking medications; talking at times and sometimes answers questions but not consistently; continue to make reasonably urine output; remains hemodynamically stable. Exam Narrative: Exam Narrative: General: chronically ill appearing AA female in NAD Heart: normal S1 and S2; no rub Lungs: decreased at bases Abdomen: soft, nontender, nondistended, positive bowel sounds Extremities: no cyanosis or clubbing; 2 - 3+ edema in LEs Skin: no rash Objective Data Vital Signs Vital Signs: Vital Signs Temp Pulse Resp BP Pulse Ox 03/16/21 12:00 36.1 C L 84 17 121/81 98 03/16/21 10:00 64 03/16/21 08:00 36.2 C L 64 15 119/76 100 03/16/21 06:00 65 03/16/21 04:00 36.2 C L 64 14 118/78 99 03/16/21 02:00 68 03/16/21 00:00 36.2 C L 64 14 120/75 100 03/15/21 22:00 60 03/15/21 20:18 68 03/15/21 20:00 36.1 C L 77 14 135/92 H 100 03/15/21 18:00 62 03/15/21 16:00 36.4 C L 61 18 111/83 100 03/15/21 14:00 57 L Intake/Output Intake/Output: Intake & Output
--- NOTE | 2021-03-16 12:45 | PM.PNNEP ---
Progress Note: A&P Assessment and Plan (1) JOSE (acute kidney injury): Code(s): N17.9 - Acute kidney failure, unspecified Status: Acute Assessment and Plan: suspect due to ATN from infection/abscess/bacteremia urine electrolytes are non-prerenal urine eosinophils negative no critical electrolytes making urine (off diuretics) follow renal function, UOP, and electrolytes (2) Stage 3b chronic kidney disease: Code(s): N18.32 - Chronic kidney disease, stage 3b Status: Chronic Assessment and Plan: baseline creatinine seems to average out around 1.6 - 2.1mg/dl however, her creatinine has fluctuated to extremes including as high as 4.5mg/dl - furthermore, it seems to resolve back to baseline with no specific intervention sometimes due to hypertension and 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) -- attempts at ureteral stenting failed so she ended up needing bilateral nephrostomy tubes (3) Hypokalemia: Code(s): E87.6 - Hypokalemia Status: Acute Assessment and Plan: due to poor oral intake and previous diuresis replete as tolerated (oral versus IV) magnesium okay follow trend (4) Bacteremia: Code(s): R78.81 - Bacteremia Status: Acute Assessment and Plan: as noted by blood cultures on antibiotics Infectious Disease recommendations noted (5) Abdominal abscess: Status: Acute Assessment and Plan: as noted by imaging s/p drainage and catheter placement by IR (6) Bilateral ureteral obstruction: Code(s): N13.5 - Crossing vessel and stricture of ureter without hydronephrosis Status: Acute Assessment and Plan: s/p percutaneous nephrostomy tubes in place follows with Urology and IR (7) Anasarca: Code(s): R60.1 - Generalized edema Status: Acute Assessment and Plan: secondary to her hypoalbuminemia along with 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 Subjective Date/time seen: 03/16/21 12:45 No apparent issues or problems noted overnight; continues not to eat and apparently now not taking medications; talking at times and sometimes answers questions but not consistently; continue to make reasonably urine output; remains hemodynamically stable. Exam Narrative: Exam Narrative: General: chronically ill appearing AA female in NAD Heart: normal S1 and S2; no rub Lungs: decreased at bases Abdomen: soft, nontender, nondistended, positive bowel sounds Extremities: no cyanosis or clubbing; 2 - 3+ edema in LEs Skin: no rash Objective Data Vital Signs Vital Signs: Vital Signs Temp Pulse Resp BP Pulse Ox 03/16/21 12:00 36.1 C L 84 17 121/81 98 03/16/21 10:00 64 03/16/21 08:00 36.2 C L 64 15 119/76 100 03/16/21 06:00 65 03/16/21 04:00 36.2 C L 64 14 118/78 99 03/16/21 02:00 68 03/16/21 00:00 36.2 C L 64 14 120/75 100 03/15/21 22:00 60 03/15/21 20:18 68 03/15/21 20:00 36.1 C L 77 14 135/92 H 100 03/15/21 18:00 62 03/15/21 16:00 36.4 C L 61 18 111/83 100 03/15/21 14:00 57 L Intake/Output Intake/Output: Intake & Output 03/13/21 03/14/21 03/15/21 03/16/21 23:59 23:59 23:59 23:59 Intake Total 830 2302 2248 1540 Output Total 2190 2340 2660 685 Balance -136 -38 -412 855 Meds/Results Medications: Active Medications Generic Name Dose Route Start Last Admin Trade Name Freq PRN Reason Stop Dose Admin Acetaminophen 650 mg 03/06/21 20:24 03/11/21 12:23 Acetaminophen 325 Mg Tablet PO 650 mg Q4H PRN Administration Pain Rated 4-6 Artificial Tears 1 drop 03/06/21 20:24 Artificial Tears Op Soln 15 Ml Bottle EACH EYE Q4-6H PRN Dry Eyes Bisacodyl 10 mg 03/16/21 09:00 03/16/21 09:04 Bisacodyl 10 Mg Suppository RECTAL 03/17
[2021-03-16] MEDS: FAT EMULSIONS IV 20% 250 ML 20.8 ML IVPB (14:31)
[2021-03-16] MEDS: AMINO ACIDS 5%/DEXTROSE 15% 2,000 ML with MULTIVITAMINS-12 INJ VIAL 1 2.5 ML, MULTIVITA... 60 ML IV CONT (14:31)
[2021-03-16 14:48] LABS: Ammonia < 9 umol/L (9-30)
[2021-03-16 14:51] LABS: Hematocrit 27.7 % (37.0-47.0); Immature Platelet Fraction Pct 6.9 % (0.9-11.2); Mean Corpuscular HGB Conc 32.5 g/dl (32-36); Mean Corpuscular Hemoglobin 29.3 pg (26-34); Mean Corpuscular Volume 90.2 fl (80-100); Platelet Count Result 26 k/mm3 (150-375); Red Blood Count 3.07 M/mm3 (4.2-5.4); Red Cell Distribution Width 17.5 % (11.5-14.5); White Blood Count 15.3 K/mm3 (4.5-10.0)
[2021-03-16 14:54] LABS: Potassium 3.4 mmol/L (3.4-5.0)
[2021-03-16 14:57] LABS: Triglycerides 40 mg/dL (<150)
[2021-03-16 16:05] LABS: Carcinoembryonic Antigen 9.1 ng/mL (0.0-3.0)
[2021-03-17] VITALS (20 sets, daily range): BP systolic 108–140; BP diastolic 71–88; PULSE 66–86; RESP 12–17; TEMP 36.1–36.4; O2SAT 98–100
[2021-03-17] MEDS: CENTRAL LINE FLUSH 10 ML IV PUSH ×3 (05:33→19:55)
[2021-03-17 05:53] LABS: Glucose Point of Care 152 (65-105)
[2021-03-17 06:29] LABS: Basophils Percent Auto 0.1 % (0.2-1.2); Hematocrit 25.9 % (37.0-47.0); Hemoglobin 8.4 g/dL (12.0-15.0); Immature Granulocyte Absolute 0.14 K/mm3 (0.00-0.031); Immature Granulocyte Percent A 0.8 % (0-0.5); Lymphocytes Percent Auto 5.2 % (18.3-44.2); Mean Corpuscular HGB Conc 32.4 g/dl (32-36); Mean Corpuscular Hemoglobin 29.2 pg (26-34); Mean Corpuscular Volume 89.9 fl (80-100); Monocytes Absolute Auto 0.9 K/mm3 (0.1-0.6); Monocytes Percent Auto 5.1 % (2.6-8.5); Neutrophils Absolute Auto 15.2 K/mm3 (1.3-6.7); Neutrophils Percent Auto 88.8 % (45.5-73.1); Nucleated Red Blood Cells Perc 0.2 % (0.0-0.2); Red Blood Count 2.88 M/mm3 (4.2-5.4); Red Cell Distribution Width 17.8 % (11.5-14.5); White Blood Count 17.2 K/mm3 (4.5-10.0)
[2021-03-17 06:38] LABS: Alanine Aminotransferase 9 U/L (4-35); Albumin Level 2.1 g/dL (3.5-5.1); Alkaline Phosphatase 59 U/L (38-126); Anion Gap 6 mmol/L (8-16); Aspartate Amino Transferase 16 U/L (14-36); Bilirubin,Total 0.4 mg/dL (0.2-1.3); Blood Urea Nitrogen 68 mg/dL (7-17); Calcium 7.5 mg/dL (8.4-10.2); Carbon Dioxide 22 mmol/L (22-30); Chloride 104 mmol/L (98-107); Estimated CRCL calculation 15 ml/min; Estimated Glomerular Filt Rate 15; Glucose 152 mg/dL (65-105); Magnesium 1.7 mg/dL (1.6-2.3); Phosphorus 2.3 mg/dL (2.5-4.5); Potassium 3.1 mmol/L (3.4-5.0); Sodium 132 mmol/L (137-145)
[2021-03-17 08:06] LABS: Platelet Count Result 21 k/mm3 (150-375)
[2021-03-17 08:07] LABS: Anisocytosis 1+ (NORMAL); Platelet Estimate Decreased (Adequate)
[2021-03-17 08:08] LABS: Burr Cells 2+ (NORMAL); Ovalocytes 1+ (NORMAL)
[2021-03-17] MEDS: MAGNESIUM SULF 2 GM/WATER 50ML 2 GM/50 ML BAG IVPB (08:18)
[2021-03-17] MEDS: BISACODYL 10 MG SUPPOSITORY RECTAL (08:19)
[2021-03-17] MEDS: LINEZOLID 600 MG/300 ML 600 MG/300 ML SOLN 300 MG IVPB ×2 (08:20→20:01)
[2021-03-17] MEDS: CIPROFLOXACIN HCL 0.3% OP SOLN 2.5 ML BTL 1 DROP RIGHT EYE (08:20)
[2021-03-17] MEDS: KETOROLAC 0.5% OP SOLN 5 ML BOTTLE 1 DROP RIGHT EYE (08:20)
[2021-03-17] MEDS: FAMOTIDINE 20 MG/2 ML VIAL IV PUSH ×2 (08:20→19:56)
[2021-03-17] MEDS: SILVERGEL (ELTA) 45 ML 1 APPLIC TOPICAL (08:21)
[2021-03-17 13:23] LABS: Glucose Point of Care 153 (65-105)
--- NOTE | 2021-03-17 14:07 | P.PNNP_ITS ---
Progress Note: A&P Assessment and Plan (1) JOSE (acute kidney injury): Code(s): N17.9 - Acute kidney failure, unspecified Status: Acute Assessment and Plan: * suspect due to ATN from infection/abscess/bacteremia * urine electrolytes are non-prerenal * urine eosinophils negative * no critical electrolytes * making urine (off diuretics) * follow renal function, UOP, and electrolytes (2) Stage 3b chronic kidney disease: Code(s): N18.32 - Chronic kidney disease, stage 3b Status: Chronic Assessment and Plan: * baseline creatinine seems to average out around 1.6 - 2.1mg/dl * however, her creatinine has fluctuated to extremes including as high as 4.5mg/dl - furthermore, it seems to resolve back to baseline with no specific intervention sometimes * due to hypertension and 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) -- attempts at ureteral stenting failed so she ended up needing bilateral nephrostomy tubes (3) Hypokalemia: Code(s): E87.6 - Hypokalemia Status: Acute Assessment and Plan: * due to poor oral intake and previous diuresis * replete as tolerated/needed * magnesium okay * follow trend (4) Bacteremia: Code(s): R78.81 - Bacteremia Status: Acute Assessment and Plan: * as noted by blood cultures * on antibiotics * Infectious Disease recommendations noted (5) Abdominal abscess: Status: Acute Assessment and Plan: * as noted by imaging * s/p drainage and catheter placement by IR (6) Bilateral ureteral obstruction: Code(s): N13.5 - Crossing vessel and stricture of ureter without hydronephrosis Status: Acute Assessment and Plan: * s/p percutaneous nephrostomy tubes in place * follows with Urology and IR (7) Protein calorie malnutrition: Code(s): E46 - Unspecified protein-calorie malnutrition Status: Chronic Assessment and Plan: * not awake enought to eat * on TPN for nutritional support * Dietary following (8) Anasarca: Code(s): R60.1 - Generalized edema Status: Acute Assessment and Plan: * secondary to her hypoalbuminemia along with 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 Subjective Date/time seen: 03/17/21 14:07 Remains quite lethargic at this time -- nursing reports she is not awake enough to take her medications much less food; she is apparently like this in the e vening as well; remains hemodynamically stable otherwise; still making urine; remains on TPN. Exam Narrative: Exam Narrative: General: chronically ill appearing AA female in NAD Heart: normal S1 and S2; no rub Lungs: decreased at bases Abdomen: soft, nontender, nondistended, positive bowel sounds Extremities: no cyanosis or clubbing; 2 - 3+ edema in LEs Skin: warm and dry Objective Data Vital Signs Vital Signs: Vital Signs Temp Pulse Resp BP Pulse Ox 03/17/21 12:00 36.4 C L 83 12 113/82 100 03/17/21 09:10 66 03/17/21 08:00 36.3 C L 68 13 108/71 100 03/17/21 06:00 71 03/17/21 04:00 36.1 C L 79 17 120/74 100 03/17/21 02:00 72 03/17/21 00:00 36.2 C L 74 16 129/79 100 03/16/21 22:00 81 03/16/21 21:18 81
--- NOTE | 2021-03-17 14:07 | PM.PNNEP ---
Progress Note: A&P Assessment and Plan (1) JOSE (acute kidney injury): Code(s): N17.9 - Acute kidney failure, unspecified Status: Acute Assessment and Plan: suspect due to ATN from infection/abscess/bacteremia urine electrolytes are non-prerenal urine eosinophils negative no critical electrolytes making urine (off diuretics) follow renal function, UOP, and electrolytes (2) Stage 3b chronic kidney disease: Code(s): N18.32 - Chronic kidney disease, stage 3b Status: Chronic Assessment and Plan: baseline creatinine seems to average out around 1.6 - 2.1mg/dl however, her creatinine has fluctuated to extremes including as high as 4.5mg/dl - furthermore, it seems to resolve back to baseline with no specific intervention sometimes due to hypertension and 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) -- attempts at ureteral stenting failed so she ended up needing bilateral nephrostomy tubes (3) Hypokalemia: Code(s): E87.6 - Hypokalemia Status: Acute Assessment and Plan: due to poor oral intake and previous diuresis replete as tolerated/needed magnesium okay follow trend (4) Bacteremia: Code(s): R78.81 - Bacteremia Status: Acute Assessment and Plan: as noted by blood cultures on antibiotics Infectious Disease recommendations noted (5) Abdominal abscess: Status: Acute Assessment and Plan: as noted by imaging s/p drainage and catheter placement by IR (6) Bilateral ureteral obstruction: Code(s): N13.5 - Crossing vessel and stricture of ureter without hydronephrosis Status: Acute Assessment and Plan: s/p percutaneous nephrostomy tubes in place follows with Urology and IR (7) Protein calorie malnutrition: Code(s): E46 - Unspecified protein-calorie malnutrition Status: Chronic Assessment and Plan: not awake enought to eat on TPN for nutritional support Dietary following (8) Anasarca: Code(s): R60.1 - Generalized edema Status: Acute Assessment and Plan: secondary to her hypoalbuminemia along with 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 Subjective Date/time seen: 03/17/21 14:07 Remains quite lethargic at this time -- nursing reports she is not awake enough to take her medications much less food; she is apparently like this in the evening as well; remains hemodynamically stable otherwise; still making urine; remains on TPN. Exam Narrative: Exam Narrative: General: chronically ill appearing AA female in NAD Heart: normal S1 and S2; no rub Lungs: decreased at bases Abdomen: soft, nontender, nondistended, positive bowel sounds Extremities: no cyanosis or clubbing; 2 - 3+ edema in LEs Skin: warm and dry Objective Data Vital Signs Vital Signs: Vital Signs Temp Pulse Resp BP Pulse Ox 03/17/21 12:00 36.4 C L 83 12 113/82 100 03/17/21 09:10 66 03/17/21 08:00 36.3 C L 68 13 108/71 100 03/17/21 06:00 71 03/17/21 04:00 36.1 C L 79 17 120/74 100 03/17/21 02:00 72 03/17/21 00:00 36.2 C L 74 16 129/79 100 03/16/21 22:00 81 03/16/21 21:18 81 03/16/21 20:00 35.9 C L 76 18 126/81 100 03/16/21 18:00 75 03/16/21 16:00 36.2 C L 71 17 124/82 100 Intake/Output Intake/Output: Intake & Output 03/14/21 03/15/21 03/16/21 03/17/21 23:59 23:59 23:59 23:59 Intake Total 2302 2248 3075 2705 Output Total 2340 2660 1710 425 Balance -38 -412 1365 2280 Meds/Results Medications: Active Medications Generic Name Dose Route Start Last Admin Trade Name Dwaine PRN Reason Stop Dose Admin Acetaminophen 650 mg 03/06/21 20:24 03/11/21 12:23 Acetaminophen 325 Mg Tablet PO 650 mg Q4H PRN Administration Pain Rated 4-6 Artificial Tears 1 drop
--- NOTE | 2021-03-17 14:15 | PM.IMPN ---
Progress Note: A&P Assessment and Plan (1) Encephalopathy: Code(s): G93.40 - Encephalopathy, unspecified Status: Acute Assessment and Plan: Patient's mental status wax/wanes. Etilogy unclear. Brain CT 03/08 showing no acute changes. Better day yesterday and renal function continues to improve. Ammonia level negative. Will repeat CT brain. (2) Acute respiratory failure: Code(s): J96.00 - Acute respiratory failure, unspecified whether with hypoxia or hypercapnia Status: Acute Assessment and Plan: Patient developed acute hypoxic respiratory failure since admission. Was requiring high flow therapy with face mask at one point but improved with diuresis and abx. Etiology unclear but suspect either PNA and/or pulmonary edema. Serial CXR showing improvement with diuretic therapy. Now on room air. Resolved. Continue to monitor. (3) Bacteremia: Code(s): R78.81 - Bacteremia Status: Acute Assessment and Plan: Patient with 1 blood culture growing Bacteroides fragilis and VRE. 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 Source most likely related to the abdominal abscess or possibly urine. Infectious Disease consulted and appreciate their input. Continue IV Zosyn and Linezolid. Prognosis guarded. (4) Abdominal abscess: Status: Acute Assessment and Plan: Initial CT abdomen/pelvis 03/07/21 with 10.2cm fluid collection in right abdomen with percutaneous drain placed 03/10. 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 Treatment of acute issues as noted above. Having regular bowel movements. Contineu to monitor (5) Pneumonia: Qualifiers: Pneumonia type: due to unspecified organism Laterality: bilateral Code(s): J18.9 - Pneumonia, unspecified organism Status: Acute Assessment and Plan: Imaging showing chest with bilateral infiltrates. CXR findings were new. CXR slowly improving felt related to pulmonary edema but can not exclude PNA. Weaned to room air. On IV antibiotics as noted above. Less likely metastatic disease. Continue to monitor. Continue respiratory treatments prn. (6) Acute on chronic renal failure: Qualifiers: Acute renal failure type: unspecified Code(s): N17.9 - Acute kidney failure, unspecified; N18.9 - Chronic kidney disease, unspecified Status: Acute Assessment and Plan: UOP 1710 yesterday. Nephrology and Urology consulted and appreciate input. Nephrostomy tubes remain in place; decreased output from right. Creatinine continues to trend down slowly and today at 3.8. Edematous but improved. Discussed with nephrology and he was okay with stopping the Diuril IV. Continue TPN. (7) Bilateral ureteral obstruction: Code(s): N13.5 - Crossing vessel and stricture of ureter without hydronephrosis Status: Acute Assessment and Plan: Bilateral percutaneous nephrostomy tubes in place. Unclear on urine output from each kidney but have been told smaller volumes from the right is more of a chronic issue. Appreciate help from Urology. Will continue to follow. Instructed RN to flush right nephrostomy tube to ensure drainage (8) Anasarca: Code(s): R60.1 - Generalized edema Status: Acute Assessment and Plan: Most likely result of low albumin. Albumin 2.1 today. Not awake enough to take oral intake. Will continue to follow with other treatments. Continue TPN. Dietary following. (9) Protein calorie malnutrition: Code(s): E46 - Unspecified protein-calorie malnutrition Status: Acute Assessment and Plan: Poor oral intake. Family wanting patient to become strong enough to resume chemo. This does not seem too realistic. TPN started and patient toelrating it well. Continue Megace. Continue TPN. Discussed with dtr yesterday but she did not feel necessary to c
[2021-03-17] MEDS: AMINO ACIDS 5%/DEXTROSE 15% 2,000 ML with MULTIVITAMINS-12 INJ VIAL 1 2.5 ML, MULTIVITA... 60 ML IV CONT (14:59)
[2021-03-17] MEDS: FAT EMULSIONS IV 20% 250 ML 20.8 ML IVPB (14:59)
[2021-03-17] MEDS: ACETAMINOPHEN 325 MG TABLET 650 MG PO (21:44)
[2021-03-17] MEDS: carvediloL 3.125 MG TABLET PO (21:45)
--- NOTE | 2021-03-17 21:53 | PC.NURSE ---
Patient given Tylenol crushed up in applesauce for generalized pain. States she just wants to go home and rest. Noted difficulty swallowing.
[2021-03-18] VITALS (17 sets, daily range): BP systolic 118–132; BP diastolic 75–98; PULSE 69–90; RESP 12–26; TEMP 36.3–36.5; O2SAT 96–100
--- NOTE | 2021-03-18 03:47 | PC.NURSE ---
Left Nephrostomy 900ml Right Nephrostomy 50ml
[2021-03-18 03:57] LABS: Basophils Percent Auto 0.1 % (0.2-1.2); Hematocrit 21.9 % (37.0-47.0); Hemoglobin 7.1 g/dL (12.0-15.0); Immature Granulocyte Absolute 0.13 K/mm3 (0.00-0.031); Immature Granulocyte Percent A 0.9 % (0-0.5); Lymphocytes Percent Auto 5.3 % (18.3-44.2); Mean Corpuscular HGB Conc 32.4 g/dl (32-36); Mean Corpuscular Hemoglobin 29.5 pg (26-34); Mean Corpuscular Volume 90.9 fl (80-100); Mean Platelet Volume 9.9 fl (7.4-10.4); Monocytes Absolute Auto 0.6 K/mm3 (0.1-0.6); Monocytes Percent Auto 4.2 % (2.6-8.5); Neutrophils Absolute Auto 13.5 K/mm3 (1.3-6.7); Neutrophils Percent Auto 89.5 % (45.5-73.1); Platelet Count Result 147 k/mm3 (150-375); Red Blood Count 2.41 M/mm3 (4.2-5.4); Red Cell Distribution Width 17.9 % (11.5-14.5); White Blood Count 15.1 K/mm3 (4.5-10.0)
[2021-03-18 04:08] LABS: Prothrombin Time 14.2 Seconds (11.1-14.7)
[2021-03-18 04:09] LABS: Partial Thromboplastin Time 36.1 SECONDS (22.3-36.8)
[2021-03-18 04:13] LABS: Alanine Aminotransferase 10 U/L (4-35); Albumin Level 2.1 g/dL (3.5-5.1); Alkaline Phosphatase 59 U/L (38-126); Anion Gap 5 mmol/L (8-16); Aspartate Amino Transferase 18 U/L (14-36); Bilirubin,Total 0.4 mg/dL (0.2-1.3); Blood Urea Nitrogen 65 mg/dL (7-17); Calcium 7.8 mg/dL (8.4-10.2); Carbon Dioxide 23 mmol/L (22-30); Chloride 103 mmol/L (98-107); Estimated CRCL calculation 16 ml/min; Estimated Glomerular Filt Rate 16; Glucose 112 mg/dL (65-105); Magnesium 1.9 mg/dL (1.6-2.3); Phosphorus 2.1 mg/dL (2.5-4.5); Potassium 3.1 mmol/L (3.4-5.0); Sodium 131 mmol/L (137-145)
[2021-03-18 04:30] LABS: Triglycerides 81 mg/dL (<150)
[2021-03-18 05:07] LABS: Transferrin < 80 mg/dL (206-381)
[2021-03-18] MEDS: CENTRAL LINE FLUSH 10 ML IV PUSH ×3 (05:24→21:16)
--- NOTE | 2021-03-18 07:07 | P.PNNP_ITS ---
Progress Note: A&P Assessment and Plan (1) JOSE (acute kidney injury): Code(s): N17.9 - Acute kidney failure, unspecified Status: Acute Assessment and Plan: * suspect due to ATN from infection/abscess/bacteremia * urine electrolytes are non-prerenal * urine eosinophils negative * No metabolic acidosis. * making urine (off diuretics). More from the left than from the right. The right kidney is atrophied and is expected to make less urine. * Creatinine seems to be coming down a little bit. Still above baseline. (2) Stage 3b chronic kidney disease: Code(s): N18.32 - Chronic kidney disease, stage 3b Status: Chronic Assessment and Plan: * CKD * Due to hypertension and recurrent obstruction. * Currently has bilateral nephrostomy tubes. * baseline creatinine seems to average out around 1.6 - 2.1mg/dl * however, her creatinine has fluctuated to extremes including as high as 4.5mg/dl - furthermore, it seems to resolve back to baseline with no specific intervention sometimes (3) Hypokalemia: Code(s): E87.6 - Hypokalemia Status: Acute Assessment and Plan: * due to poor oral intake and previous diuresis * She is getting TPN so refeeding may be an issue as well. Will leave this to adjustments in her TPN. * replete as tolerated/needed * magnesium 1.9. * follow trend (4) Bacteremia: Code(s): R78.81 - Bacteremia Status: Acute Assessment and Plan: * as noted by blood cultures * Repeat cultures negative. * on dose in plus linezolid. * Infectious Disease on the case. (5) Abdominal abscess: Status: Acute Assessment and Plan: * as noted by imaging * s/p drainage and catheter placement by IR (6) Bilateral ureteral obstruction: Code(s): N13.5 - Crossing vessel and stricture of ureter without hydronephrosis Status: Acute Assessment and Plan: * s/p percutaneous nephrostomy tubes in place * follows with Urology and IR (7) Protein calorie malnutrition: Code(s): E46 - Unspecified protein-calorie malnutrition Status: Chronic Assessment and Plan: * not awake enought to eat * on TPN for nutritional support * Dietary following (8) Anasarca: Code(s): R60.1 - Generalized edema Status: Acute Assessment and Plan: * secondary to her hypoalbuminemia along with 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 She is interactive. No chest pain or shortness of breath. Exam Narrative: Exam Narrative: General: chronically ill appearing AA female in NAD Heart: normal S1 and S2; no rub Lungs: decreased at bases, no wheezes. Abdomen: soft, nontender, nondistended, positive bowel sounds Extremities: 2 - 3+ edema in LEs. She has compression stockings on. Skin: No rash Objective Data Vital Signs Vital Signs: Vital Signs - 24 hr 03/17/21 08:00 03/17/21 09:10 03/17/21 12:00 Temperature 36.3 C L 36.4 C L Pulse Rate 68 66 83 Respiratory Rate 13 12 Blood Pressure 108/71 113/82 Pulse Oximetry 100 100 03/17/21 14:00 03/17/21 16:00 03/17/21 18:00 Temperature 36.4 C L Pulse Rate 70 73 82 Respiratory Rate 14 Bloo
--- NOTE | 2021-03-18 07:07 | PM.PNNEP ---
Progress Note: A&P Assessment and Plan (1) JOSE (acute kidney injury): Code(s): N17.9 - Acute kidney failure, unspecified Status: Acute Assessment and Plan: suspect due to ATN from infection/abscess/bacteremia urine electrolytes are non-prerenal urine eosinophils negative No metabolic acidosis. making urine (off diuretics). More from the left than from the right. The right kidney is atrophied and is expected to make less urine. Creatinine seems to be coming down a little bit. Still above baseline. (2) Stage 3b chronic kidney disease: Code(s): N18.32 - Chronic kidney disease, stage 3b Status: Chronic Assessment and Plan: CKD Due to hypertension and recurrent obstruction. Currently has bilateral nephrostomy tubes. baseline creatinine seems to average out around 1.6 - 2.1mg/dl however, her creatinine has fluctuated to extremes including as high as 4.5mg/dl - furthermore, it seems to resolve back to baseline with no specific intervention sometimes (3) Hypokalemia: Code(s): E87.6 - Hypokalemia Status: Acute Assessment and Plan: due to poor oral intake and previous diuresis She is getting TPN so refeeding may be an issue as well. Will leave this to adjustments in her TPN. replete as tolerated/needed magnesium 1.9. follow trend (4) Bacteremia: Code(s): R78.81 - Bacteremia Status: Acute Assessment and Plan: as noted by blood cultures Repeat cultures negative. on dose in plus linezolid. Infectious Disease on the case. (5) Abdominal abscess: Status: Acute Assessment and Plan: as noted by imaging s/p drainage and catheter placement by IR (6) Bilateral ureteral obstruction: Code(s): N13.5 - Crossing vessel and stricture of ureter without hydronephrosis Status: Acute Assessment and Plan: s/p percutaneous nephrostomy tubes in place follows with Urology and IR (7) Protein calorie malnutrition: Code(s): E46 - Unspecified protein-calorie malnutrition Status: Chronic Assessment and Plan: not awake enought to eat on TPN for nutritional support Dietary following (8) Anasarca: Code(s): R60.1 - Generalized edema Status: Acute Assessment and Plan: secondary to her hypoalbuminemia along with 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 She is interactive. No chest pain or shortness of breath. Exam Narrative: Exam Narrative: General: chronically ill appearing AA female in NAD Heart: normal S1 and S2; no rub Lungs: decreased at bases, no wheezes. Abdomen: soft, nontender, nondistended, positive bowel sounds Extremities: 2 - 3+ edema in LEs. She has compression stockings on. Skin: No rash Objective Data Vital Signs Vital Signs: Vital Signs - 24 hr 03/17/21 08:00 03/17/21 09:10 03/17/21 12:00 Temperature 36.3 C L 36.4 C L Pulse Rate 68 66 83 Respiratory Rate 13 12 Blood Pressure 108/71 113/82 Pulse Oximetry 100 100 03/17/21 14:00 03/17/21 16:00 03/17/21 18:00 Temperature 36.4 C L Pulse Rate 70 73 82 Respiratory Rate 14 Blood Pressure 117/88 Pulse Oximetry 100 03/17/21 19:52 03/17/21 20:00 03/17/21 20:06 Temperature 36.1 C L 36.3 C L Pulse Rate 85 78 82 Respiratory Rate 16 15 14 Blood Pressure 117/88 133/71 Pulse Oximetry 100 100 100 03/17/21 20:07 03/17/21 20:48 03/17/21 21:06 Temperature 36.3 C L 36.4 C 36.4 C Pulse Rate 81 83 86 Respiratory Rate 13 14 14 Blood Pressure 133/71 138/81 138/81 Pulse Oximetry 100 100 100 03/17/21 21:23 03/17/21 21:45 03/17/21 22:00 Temperature 36.4 C Pulse Rate 83 84 82 Respiratory Rate 16 Blood Pressure 130/78 Pulse Oximetry 100 03/17/21 22:03 03/18/21 00:00 03/18/21 02:00 Temperature 36.4
[2021-03-18] MEDS: KETOROLAC 0.5% OP SOLN 5 ML BOTTLE 1 DROP RIGHT EYE (09:35)
[2021-03-18] MEDS: SCOPOLAMINE 1.5 MG PATCH TRANSDERM (09:36)
[2021-03-18] MEDS: SILVERGEL (ELTA) 45 ML 1 APPLIC TOPICAL (09:36)
[2021-03-18] MEDS: FAMOTIDINE 20 MG/2 ML VIAL IV PUSH ×2 (09:40→21:13)
[2021-03-18] MEDS: carvediloL 3.125 MG TABLET PO ×2 (09:40→21:13)
[2021-03-18] MEDS: MEGESTROL ACETATE (*CHEMO) ORAL SUSP 40 MG/ML SYR 800 MG PO (09:44)
[2021-03-18] MEDS: LINEZOLID 600 MG/300 ML 600 MG/300 ML SOLN 300 MG IVPB ×2 (09:53→21:15)
[2021-03-18] MEDS: POTASSIUM CHLORIDE 20 MEQ PACKET (FOR LIQUID) 40 MEQ PO (11:23)
[2021-03-18] MEDS: POTASSIUM PHOS/SODIUM PHOS 250 MG TABLET PO (11:24)
--- NOTE | 2021-03-18 11:42 | PC.NURSE ---
Dr. Monaco and daughter at bedside. No improvement in patient appetite. RN to put bed in chair position.
[2021-03-18 11:43] LABS: Glucose Point of Care 111 (65-105)
[2021-03-18] MEDS: PHARMACIST COMMUNICATION ORDER 1 EACH XX (13:10)
--- NOTE | 2021-03-18 14:01 | PM.IMPN ---
Progress Note: A&P Assessment and Plan (1) Encephalopathy: Code(s): G93.40 - Encephalopathy, unspecified Status: Acute Assessment and Plan: Patient's mental status wax/wanes. Etilogy unclear. Brain CT 03/17 showing no acute changes. Better day today. Ammonia level negative. Increase activity level as toelrated (2) Acute respiratory failure: Code(s): J96.00 - Acute respiratory failure, unspecified whether with hypoxia or hypercapnia Status: Acute Assessment and Plan: Patient developed acute hypoxic respiratory failure since admission. Was requiring high flow therapy with face mask at one point but improved with diuresis and abx. Etiology unclear but suspect either PNA and/or pulmonary edema. Serial CXR showing improvement with diuretic therapy. Now on room air. Resolved. Continue to monitor. (3) Bacteremia: Code(s): R78.81 - Bacteremia Status: Acute Assessment and Plan: Patient with 1 blood culture growing Bacteroides fragilis and VRE. 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 Source most likely related to the abdominal abscess or possibly urine. Infectious Disease consulted and appreciate their input. Continue IV Zosyn and Linezolid. Prognosis guarded. (4) Abdominal abscess: Status: Acute Assessment and Plan: Initial CT abdomen/pelvis 03/07/21 with 10.2cm fluid collection in right abdomen with percutaneous drain placed 03/10. 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 Treatment of acute issues as noted above. Having regular bowel movements. General surgery managing the drain (5) Pneumonia: Qualifiers: Pneumonia type: due to unspecified organism Laterality: bilateral Code(s): J18.9 - Pneumonia, unspecified organism Status: Acute Assessment and Plan: Imaging was showing chest with bilateral infiltrates which were new. CXR slowly improving felt related to pulmonary edema but can not exclude PNA. Weaned to room air. On IV antibiotics as noted above. Less likely metastatic disease. Continue to monitor. Continue respiratory treatments prn. (6) Acute on chronic renal failure: Qualifiers: Acute renal failure type: unspecified Code(s): N17.9 - Acute kidney failure, unspecified; N18.9 - Chronic kidney disease, unspecified Status: Acute Assessment and Plan: UOP 1375 yesterday and decreasing. Nephrology and Urology consulted and appreciate input. Nephrostomy tubes remain in place; decreased output from right. Creatinine continues to trend down slowly and today at 3.5. Edematous but improved overall. Continue TPN. (7) Bilateral ureteral obstruction: Code(s): N13.5 - Crossing vessel and stricture of ureter without hydronephrosis Status: Acute Assessment and Plan: Bilateral percutaneous nephrostomy tubes in place. Unclear on urine output from each kidney but have been told smaller volumes from the right is more of a chronic issue. Appreciate help from Urology. Will continue to follow. Instructed RN to flush right nephrostomy tube again today to ensure drainage (8) Anasarca: Code(s): R60.1 - Generalized edema Status: Acute Assessment and Plan: Most likely result of low albumin. Albumin stable at 2.1. Edema improving. Will continue to follow with other treatments. Continue TPN. Dietary following. (9) Protein calorie malnutrition: Code(s): E46 - Unspecified protein-calorie malnutrition Status: Chronic Assessment and Plan: Poor oral intake. Family wanting patient to become strong enough to resume chemo. This does not seem too realistic if patient unable to eat. TPN started and patient tolerating it well. Continue Megace. Continue TPN. Discussed with dtr today about comfort measures if patient is unable to eat. Patient refusing any type of NG t
[2021-03-18 16:34] LABS: Hematocrit 23.3 % (37.0-47.0); Hemoglobin 7.8 g/dL (12.0-15.0)
[2021-03-18] MEDS: AMINO ACIDS 5%/DEXTROSE 15% 2,000 ML with MULTIVITAMINS-12 INJ VIAL 1 2.5 ML, MULTIVITA... 60 ML IV CONT (17:50)
[2021-03-18] MEDS: FAT EMULSIONS IV 20% 250 ML 20.83 ML IVPB (17:51)
[2021-03-18 18:24] LABS: Glucose Point of Care 311 (65-105)
[2021-03-18 18:25] LABS: Glucose Point of Care 119 (65-105)
[2021-03-18] MEDS: ACETAMINOPHEN 325 MG TABLET 650 MG PO (21:13)
[2021-03-19] VITALS (14 sets, daily range): BP systolic 106–148; BP diastolic 72–87; PULSE 72–94; RESP 12–20; TEMP 36.3–36.6; O2SAT 99–100
[2021-03-19 04:28] LABS: Hemoglobin 7.6 g/dL (12.0-15.0); Mean Corpuscular Hemoglobin 30.2 pg (26-34); Mean Corpuscular Volume 91.3 fl (80-100); Mean Platelet Volume 10.1 fl (7.4-10.4); Platelet Count Result 98 k/mm3 (150-375); Red Blood Count 2.52 M/mm3 (4.2-5.4); Red Cell Distribution Width 18.1 % (11.5-14.5); White Blood Count 15.9 K/mm3 (4.5-10.0)
[2021-03-19 04:42] LABS: Albumin Level 2.2 g/dL (3.5-5.1); Anion Gap 6 mmol/L (8-16); Blood Urea Nitrogen 68 mg/dL (7-17); Calcium 7.7 mg/dL (8.4-10.2); Carbon Dioxide 22 mmol/L (22-30); Chloride 101 mmol/L (98-107); Estimated CRCL calculation 17 ml/min; Estimated Glomerular Filt Rate 17; Glucose 152 mg/dL (65-105); Magnesium 1.8 mg/dL (1.6-2.3); Phosphorus 2.3 mg/dL (2.5-4.5); Potassium 3.1 mmol/L (3.4-5.0); Sodium 129 mmol/L (137-145)
--- NOTE | 2021-03-19 06:18 | PC.NURSE ---
Left Nephrostomy tube-500ml Right Nephrostomy tube-50ml.
--- NOTE | 2021-03-19 07:05 | P.PNNP_ITS ---
Progress Note: A&P Assessment and Plan (1) JOSE (acute kidney injury): Code(s): N17.9 - Acute kidney failure, unspecified Status: Acute Assessment and Plan: * suspect due to ATN from infection/abscess/bacteremia * urine electrolytes are non-prerenal * urine eosinophils negative * Bicarbonate level is okay. * making urine (off diuretics). More from the left than from the right. The right kidney is atrophied and is expected to make less urine. * Creatinine seems to be coming down very slowly. Still above baseline (1.6 to 2.1). (2) Stage 3b chronic kidney disease: Code(s): N18.32 - Chronic kidney disease, stage 3b Status: Chronic Assessment and Plan: * CKD * Due to hypertension and recurrent obstruction. * Currently has bilateral nephrostomy tubes. * baseline creatinine seems to average out around 1.6 - 2.1mg/dl (3) Hypokalemia: Code(s): E87.6 - Hypokalemia Status: Acute Assessment and Plan: * due to poor oral intake and previous diuresis * She is getting TPN so refeeding may be an issue as well. Will leave this to adjustments in her TPN. * replete as tolerated/needed (4) Bacteremia: Code(s): R78.81 - Bacteremia Status: Acute Assessment and Plan: * as noted by blood cultures * Repeat cultures negative. * on Zosyn and linezolid. * Infectious Disease on the case. (5) Abdominal abscess: Status: Acute Assessment and Plan: * as noted by imaging * s/p drainage and catheter placement by IR (6) Bilateral ureteral obstruction: Code(s): N13.5 - Crossing vessel and stricture of ureter without hydronephrosis Status: Acute Assessment and Plan: * s/p percutaneous nephrostomy tubes in place * follows with Urology and IR (7) Protein calorie malnutrition: Code(s): E46 - Unspecified protein-calorie malnutrition Status: Chronic Assessment and Plan: * not awake enought to eat * on TPN for nutritional support * Dietary following (8) Anasarca: Code(s): R60.1 - Generalized edema Status: Acute Assessment and Plan: * secondary to her hypoalbuminemia along with venous and lymphatic obstruction from her malignancy * likely to be an ongoing/chronic issue * Albumin is also low, contributing to the swelling. * Getting TPN and family is going to feed the patient so hopefully nutritional issues will improve * Because TPN is relatively high-volume will try a dose of diuretics and see if she responds. Subjective Date/time seen: 03/19/21 07:05 Interval history: Patient feels weak. She had an uneventful night per nursing. Exam Narrative: Exam Narrative: General: chronically ill appearing AA female in NAD Heart: normal S1 and S2; no rub or gallop Lungs: decreased at bases, no wheezes. Abdomen: soft, nontender, nondistended, positive bowel sounds Extremities: 2 - 3+ edema in LEs and presacral area. She has compression stockings on. Skin: No rash or subcu nodules Objective Data Vital Signs Vital Signs: Vital Signs - 24 hr 03/18/21 08:00 03/18/21 09:40 03/18/21 10:00 Temperature 36.3 C L Pulse Rate 74 90 74 Respiratory Rate 12 Blood Pressure 125/84 Pulse Oximetry 100 03/18/21 12:00 03/18/21 14:00 03/18/21 16:00 Temperature 36.3 C L 36.4 C L Pulse Rate 84 7
--- NOTE | 2021-03-19 07:05 | PM.PNNEP ---
Progress Note: A&P Assessment and Plan (1) JOSE (acute kidney injury): Code(s): N17.9 - Acute kidney failure, unspecified Status: Acute Assessment and Plan: suspect due to ATN from infection/abscess/bacteremia urine electrolytes are non-prerenal urine eosinophils negative Bicarbonate level is okay. making urine (off diuretics). More from the left than from the right. The right kidney is atrophied and is expected to make less urine. Creatinine seems to be coming down very slowly. Still above baseline (1.6 to 2.1). (2) Stage 3b chronic kidney disease: Code(s): N18.32 - Chronic kidney disease, stage 3b Status: Chronic Assessment and Plan: CKD Due to hypertension and recurrent obstruction. Currently has bilateral nephrostomy tubes. baseline creatinine seems to average out around 1.6 - 2.1mg/dl (3) Hypokalemia: Code(s): E87.6 - Hypokalemia Status: Acute Assessment and Plan: due to poor oral intake and previous diuresis She is getting TPN so refeeding may be an issue as well. Will leave this to adjustments in her TPN. replete as tolerated/needed (4) Bacteremia: Code(s): R78.81 - Bacteremia Status: Acute Assessment and Plan: as noted by blood cultures Repeat cultures negative. on Zosyn and linezolid. Infectious Disease on the case. (5) Abdominal abscess: Status: Acute Assessment and Plan: as noted by imaging s/p drainage and catheter placement by IR (6) Bilateral ureteral obstruction: Code(s): N13.5 - Crossing vessel and stricture of ureter without hydronephrosis Status: Acute Assessment and Plan: s/p percutaneous nephrostomy tubes in place follows with Urology and IR (7) Protein calorie malnutrition: Code(s): E46 - Unspecified protein-calorie malnutrition Status: Chronic Assessment and Plan: not awake enought to eat on TPN for nutritional support Dietary following (8) Anasarca: Code(s): R60.1 - Generalized edema Status: Acute Assessment and Plan: secondary to her hypoalbuminemia along with venous and lymphatic obstruction from her malignancy likely to be an ongoing/chronic issue Albumin is also low, contributing to the swelling. Getting TPN and family is going to feed the patient so hopefully nutritional issues will improve Because TPN is relatively high-volume will try a dose of diuretics and see if she responds. Subjective Date/time seen: 03/19/21 07:05 Interval history: Patient feels weak. She had an uneventful night per nursing. Exam Narrative: Exam Narrative: General: chronically ill appearing AA female in NAD Heart: normal S1 and S2; no rub or gallop Lungs: decreased at bases, no wheezes. Abdomen: soft, nontender, nondistended, positive bowel sounds Extremities: 2 - 3+ edema in LEs and presacral area. She has compression stockings on. Skin: No rash or subcu nodules Objective Data Vital Signs Vital Signs: Vital Signs - 24 hr 03/18/21 08:00 03/18/21 09:40 03/18/21 10:00 Temperature 36.3 C L Pulse Rate 74 90 74 Respiratory Rate 12 Blood Pressure 125/84 Pulse Oximetry 100 03/18/21 12:00 03/18/21 14:00 03/18/21 16:00 Temperature 36.3 C L 36.4 C L Pulse Rate 84 75 81 Respiratory Rate 14 12 Blood Pressure 118/98 H 130/89 Pulse Oximetry 100 100 03/18/21 18:00 03/18/21 20:00 03/18/21 21:00 Temperature 36.4 C Pulse Rate 85 84 89 Respiratory Rate 26 H 12 Blood Pressure 132/83 Pulse Oximetry 100 100 03/18/21 21:13 03/18/21 22:00 03/18/21 23:43 Temperature Pulse Rate 89 89 77 Respiratory Rate 14 Blood Pressure Pulse Oximetry 100 03/19/21 00:00 03/19/21 02:00 03/19/21 04:00 Temperature 36.6 C 36.4 C L Pulse Rate 77 82 94 Respiratory Rate 13 18 Blood Pressure 119/75 148/84 H Pulse Oximetry 100 100 03/19/21 06:00 Temperature Pulse Rate 78
[2021-03-19] MEDS: SILVERGEL (ELTA) 45 ML 1 APPLIC TOPICAL (09:03)
[2021-03-19] MEDS: MEGESTROL ACETATE (*CHEMO) ORAL SUSP 40 MG/ML SYR 800 MG PO (09:03)
[2021-03-19] MEDS: carvediloL 3.125 MG TABLET PO (09:04)
[2021-03-19] MEDS: FAMOTIDINE 20 MG/2 ML VIAL IV PUSH ×2 (09:04→20:39)
[2021-03-19] MEDS: KETOROLAC 0.5% OP SOLN 5 ML BOTTLE 1 DROP RIGHT EYE (09:05)
[2021-03-19] MEDS: CENTRAL LINE FLUSH 10 ML IV PUSH ×3 (09:06→20:39)
--- NOTE | 2021-03-19 09:32 | WPDINTPN ---
Progress Note: A&P Assessment and Plan (1) Hypoxia: Code(s): R09.02 - Hypoxemia Status: Acute Assessment and Plan: ON room air now, not in any distress Chest x-ray shows improving bilateral infiltrates suggestive of pulmonary edema/pneumonia Bumex infusion discontinue on 03/12 She is on broad-spectrum antibiotics to cover for pneumonia although it appears to be less likely -patient is on Zosyn Zyvox P.r.n. NT suction (2) Pneumonia: Qualifiers: Pneumonia type: due to unspecified organism Laterality: bilateral Code(s): J18.9 - Pneumonia, unspecified organism Status: Acute Assessment and Plan: Chest x-ray shows bilateral infiltrates and cardiomegaly -infectious disease following the patient (3) Abdominal abscess: Status: Acute Assessment and Plan: CT showed 10.2 x 6.9 x 12.7 cm fluid collection in the right abdomen of uncertain etiology, stable from 03/02/21 and new from 02/06/21. Patient received platelets transfusion yesterday. Abscess was drained by interventional radiology and drain was left in place. Dr. burns is going to remove the drain today as it has not been putting out any fluid over last couple days (4) Acute on chronic renal failure: Qualifiers: Acute renal failure type: unspecified Code(s): N17.9 - Acute kidney failure, unspecified; N18.9 - Chronic kidney disease, unspecified Status: Acute Assessment and Plan: Acute kidney injury over chronic kidney disease Patient is being seen by Nephrology and Urology at this time Nephrostomies tubes are in place and draining Decreased output from right side, right kidneys atrophic. Dr. Teran following the patient Replace low potassium (5) Bilateral ureteral obstruction: Code(s): N13.5 - Crossing vessel and stricture of ureter without hydronephrosis Status: Acute Assessment and Plan: The patient has percutaneous nephrostomies in place.. Dr. Teran with urology following (6) Protein calorie malnutrition: Code(s): E46 - Unspecified protein-calorie malnutrition Status: Chronic Assessment and Plan: Secondary to metastatic cancer and also now has adynamic ileus Patient denies any nausea vomiting and is on clear liquid diet at this time although she is not eating much he and is anorexic Patient has also refused PEG tube and does not want NG Continue TPN (7) Anasarca: Code(s): R60.1 - Generalized edema Status: Acute Assessment and Plan: Multifactorial likely secondary to low albumin venous obstruction and heart failure (8) Anemia: Code(s): D64.9 - Anemia, unspecified Status: Acute Assessment and Plan: Monitor and transfuse as needed -oncology following the patient, Procrit has been ordered (9) Thrombocytopenia: Code(s): D69.6 - Thrombocytopenia, unspecified Status: Acute Assessment and Plan: Patient received platelet transfusion for ultrasound-guided drainage of fluid collection -likely cause, severe sepsis, medications, disease process 98K today (10) Bacteremia: Code(s): R78.81 - Bacteremia Status: Acute Assessment and Plan: Blood culture 1/2 is growing bacteroides fragilis and VRE. Patient on Zyvox and Zosyn per Dr. Canseco. (11) Encephalopathy: Code(s): G93.40 - Encephalopathy, unspecified Status: Acute Assessment and Plan: TME vs Delirium Head CT negative and ammonia normal Additional Plan DVT prophylaxis -SCDs Prognosis guarded and poor. Patient's family is unrealistic with her prognosis Code Status -patient is full code at this time as per patient's family's request Subjective Date/time seen: 03/19/21 Patient seen for hospitalist group Patient feels weak and tired but otherwise denies any complaints. She does not feel like eating. Her ZEFERINO drain has not been draining much for last few days Nephrostomy tubes and place
--- NOTE | 2021-03-19 09:42 | PM.PNGS ---
Progress Note: A&P Assessment and Plan (1) Abdominal abscess: Status: Resolved Assessment and Plan: Pigtail catheter no longer draining any substantial amounts. This was removed today without difficulty. Please call back if further problems. (2) Metastatic colon cancer in female: Onset Date: ~2017 Code(s): C18.9 - Malignant neoplasm of colon, unspecified Status: Chronic Assessment and Plan: Patient continues to deteriorate from extensive metastatic colon cancer. Subjective Subjective Date/Time Seen: 03/19/21 09:42 Patient reports: no new complaints and other ( Patient lethargic, right lower quadrant pigtail catheter draining next to nothing.) Review of Systems Review of Systems: All systems reviewed & are unremarkable except as noted in HPI and below Constitutional: Constitutional: Denies chills, Denies fever(s) and Reports poor appetite Exam GI: Inspection: incision ( Well-healed, open area in center is nearly closed.) and other ( 40 cc out pigtail in last 7 days, most days 0 output) GI Palp: Yes Other GI palpation findings present ( pigtail catheter right lower quadrant removed and dressing placed.) Objective Data Vital Signs Vital Signs: Vital Signs - 24 hr 03/18/21 10:00 03/18/21 12:00 03/18/21 14:00 Temperature 36.3 C L Pulse Rate 74 84 75 Respiratory Rate 14 Blood Pressure 118/98 H Pulse Oximetry 100 03/18/21 16:00 03/18/21 18:00 03/18/21 20:00 Temperature 36.4 C L 36.4 C Pulse Rate 81 85 84 Respiratory Rate 12 26 H Blood Pressure 130/89 132/83 Pulse Oximetry 100 100 03/18/21 21:00 03/18/21 21:13 03/18/21 22:00 Temperature Pulse Rate 89 89 89 Respiratory Rate 12 Blood Pressure Pulse Oximetry 100 03/18/21 23:43 03/19/21 00:00 03/19/21 02:00 Temperature 36.6 C Pulse Rate 77 77 82 Respiratory Rate 14 13 Blood Pressure 119/75 Pulse Oximetry 100 100 03/19/21 04:00 03/19/21 06:00 03/19/21 08:00 Temperature 36.4 C L 36.4 C L Pulse Rate 94 78 84 Respiratory Rate 18 12 Blood Pressure 148/84 H 133/87 Pulse Oximetry 100 100 03/19/21 09:04 Temperature Pulse Rate 83 Respiratory Rate Blood Pressure Pulse Oximetry Intake/Output Intake/Output: Intake & Output 03/16/21 03/17/21 03/18/21 03/19/21 23:59 23:59 23:59 23:59 Intake Total 3075 3582 2085 75 Output Total 1710 1375 2030 550 Balance 1365 2207 55 -475 Meds/Results Medications: Active Medications Generic Name Dose Route Start Last Admin Trade Name Freq PRN Reason Stop Dose Admin Acetaminophen 650 mg 03/06/21 20:24 03/18/21 21:13 Acetaminophen 325 Mg Tablet PO 650 mg Q4H PRN Administration Pain Rated 4-6 Artificial Tears 1 drop 03/06/21 20:24 Artificial Tears Op Soln 15 Ml Bottle EACH EYE Q4-6H PRN Dry Eyes Carvedilol 3.125 mg 03/06/21 21:00 03/19/21 09:04 Carvedilol 3.125 Mg Tablet PO 3.125 mg Q12HR BORIS Administration Diphenhydramine HCl 25 mg 03/06/21 20:24 03/06/21 21:42 Diphenhydramine Hcl Elixir 12.5 Mg/5 Ml Udc PO 25 mg Q6H PRN Administration Pain Rated 1-3 Docusate Sodium 100 mg 03/07/21 09:00 03/18/21 17:51 Docusate Sodium 100 Mg Capsule PO Not Given BID BORIS Famotidine 20 mg 03/16/21 09:00 03/19/21 09:04 Famotidine 20 Mg/2 Ml Vial IV PUSH 20 mg Q12HR BORIS Administration Heparin Sodium (Beef Lung) 50 units 03/06/21 13:07 Heparin Flush 50 Units/5 Ml Syringe IV PUSH PRN PRN after intermittent infusion Piperacillin Sod/Tazobactam Sod 2.25 gm in 50 mls @ 100 mls/hr 03/11/21 10:30 03/19/21 00:38 Zosyn 2.25 Gm/D5w 50 Ml IVPB Infused Q6HR [facility] Infusion Linezolid 600 mg in 300 mls @ 300 mls/hr 03/11/21 21:00 03/18/21 22:15 Zyvox IVPB Infused Q12HR BORIS Infusion Dextrose 1,000 mls @ 50 mls/hr 03/13/21 13:47 Dextrose 10% IV CONT .Q20H PRN if PN is interrupted Multivitamins 2.5 ml/ 2,005 mls @
[2021-03-19] MEDS: LINEZOLID 600 MG/300 ML 600 MG/300 ML SOLN 300 MG IVPB ×2 (09:49→20:39)
[2021-03-19] MEDS: POTASSIUM CHLORIDE 20 MEQ PACKET (FOR LIQUID) 40 MEQ FEED TUBE (09:49)
[2021-03-19] MEDS: BUMETANIDE INJ 1 MG/4 ML VIAL IV PUSH (09:49)
--- NOTE | 2021-03-19 10:27 | PCDIET ---
Nutrition Follow-Up Complete: Nutrition Diagnosis: Increased protein needs related to pressure ulcer as evidenced by comprehensive wound assessment and needs of 94-110g of protein daily for wound healing. Nutrition Goal: Patient to meet estimated nutritional needs. Goal in progress. Patient receiving Clinimix 5/15 at 60mL/hr with 250mL 20% lipids daily which provides 1522kcal and 72g protein per day. Reportedly patient has refused NG and g-tube placement. Last recorded weight is 78.6 kg which is increased from last review. Bowel Motility: Last documented BM on 03/18/21 x 1. Labs Reviewed: Hgb (7.6), Hct (23.0), Glu (152), BUN (68), Cr (3.4), K (3.1), Na (129), Alb (2.2), Don Ca (9.14), PO4 (2.3), TG (81) Meds Noted: Bumex, KCl, Colace, Zosyn, Pepcid, Zyvox, Pred Forte, Megace, Sodium Bicarbonate Additional Notes: Bumex added today. Noted decreased sodium and chloride levels and increased weight. Ideally, patient would receive more concentrated enteral feeding, but currently refusing enteral access. Documented coccyx ulcer and abdominal incision. Will continue to monitor with same goal. Nutrition Monitoring and Evaluation: Follow up every Thursday/Thursday.
[2021-03-19] MEDS: LIDOCAINE HCL 1% LOCAL INJ 2 ML AMPUL 5 ML INFILTRATE (15:00)
[2021-03-19] MEDS: AMINO ACIDS 5%/DEXTROSE 15% 2,000 ML with MULTIVITAMINS-12 INJ VIAL 1 2.5 ML, MULTIVITA... 60 ML IV CONT (16:00)
[2021-03-19] MEDS: FAT EMULSIONS IV 20% 250 ML 20.83 ML IVPB (16:00)
[2021-03-19 17:33] LABS: Glucose Point of Care 80 mg/dl (65-105)
[2021-03-20] VITALS (16 sets, daily range): BP systolic 113–148; BP diastolic 68–90; PULSE 69–96; RESP 12–23; TEMP 36.4–36.6; O2SAT 98–100
[2021-03-20 04:46] LABS: Hematocrit 21.6 % (37.0-47.0); Hemoglobin 7.3 g/dL (12.0-15.0); Mean Corpuscular HGB Conc 33.8 g/dl (32-36); Mean Corpuscular Hemoglobin 29.8 pg (26-34); Mean Corpuscular Volume 88.2 fl (80-100); Mean Platelet Volume 11.4 fl (7.4-10.4); Platelet Count Result 66 k/mm3 (150-375); Red Blood Count 2.45 M/mm3 (4.2-5.4); White Blood Count 16.4 K/mm3 (4.5-10.0)
[2021-03-20] MEDS: CENTRAL LINE FLUSH 10 ML IV PUSH ×2 (05:01→20:32)
[2021-03-20 05:15] LABS: Anion Gap 6 mmol/L (8-16); Blood Urea Nitrogen 70 mg/dL (7-17); Calcium 7.8 mg/dL (8.4-10.2); Carbon Dioxide 21 mmol/L (22-30); Chloride 101 mmol/L (98-107); Estimated CRCL calculation 16 ml/min; Estimated Glomerular Filt Rate 16; Glucose 150 mg/dL (65-105); Potassium 3.4 mmol/L (3.4-5.0); Sodium 128 mmol/L (137-145)
--- NOTE | 2021-03-20 05:16 | PC.NURSE ---
Left Nephrostomy tube-1350ml Right Nephrostomy tube-50ml
[2021-03-20] MEDS: FAMOTIDINE 20 MG/2 ML VIAL IV PUSH ×2 (09:09→20:32)
[2021-03-20] MEDS: SILVERGEL (ELTA) 45 ML 1 APPLIC TOPICAL (09:11)
[2021-03-20] MEDS: LINEZOLID 600 MG/300 ML 600 MG/300 ML SOLN 300 MG IVPB ×2 (09:11→20:31)
--- NOTE | 2021-03-20 10:22 | P.PNNP_ITS ---
Progress Note: A&P Assessment and Plan (1) JOSE (acute kidney injury): Code(s): N17.9 - Acute kidney failure, unspecified Status: Acute Assessment and Plan: * suspect due to ATN from infection/abscess/bacteremia * urine electrolytes are non-prerenal * urine eosinophils negative * Bicarbonate level is okay. * making urine (off diuretics). More from the left than from the right. The right kidney is atrophied and is expected to make less urine. * Creatinine seems to be at a plateau of around 3.5 Still above baseline (1.6 to 2.1). * edematous. responded pretty well to the diuretic. will check urine 'lytes and give some albumin and bumex one time today. (2) Stage 3b chronic kidney disease: Code(s): N18.32 - Chronic kidney disease, stage 3b Status: Chronic Assessment and Plan: * CKD * Due to hypertension and recurrent obstruction. * Currently has bilateral nephrostomy tubes. * baseline creatinine seems to average out around 1.6 - 2.1mg/dl (3) Hypokalemia: Code(s): E87.6 - Hypokalemia Status: Acute Assessment and Plan: * due to poor oral intake and previous diuresis * She is getting TPN so refeeding may be an issue as well. Will leave this to adjustments in her TPN. * replete as tolerated/needed (4) Bacteremia: Code(s): R78.81 - Bacteremia Status: Acute Assessment and Plan: * as noted by blood cultures * Repeat cultures negative. * on Zosyn and linezolid. * Infectious Disease on the case. (5) Abdominal abscess: Status: Resolved Assessment and Plan: * as noted by imaging * s/p drainage and catheter placement by IR (6) Bilateral ureteral obstruction: Code(s): N13.5 - Crossing vessel and stricture of ureter without hydronephrosis Status: Acute Assessment and Plan: * s/p percutaneous nephrostomy tubes in place * follows with Urology and IR (7) Protein calorie malnutrition: Code(s): E46 - Unspecified protein-calorie malnutrition Status: Chronic Assessment and Plan: * not awake enought to eat * on TPN for nutritional support * Dietary following (8) Anasarca: Code(s): R60.1 - Generalized edema Status: Acute Assessment and Plan: * secondary to her hypoalbuminemia along with venous and lymphatic obstruction from her malignancy * likely to be an ongoing/chronic issue * Albumin is also low, contributing to the swelling. * Getting TPN and family is going to feed the patient so hopefully nutritional issues will improve Subjective Date/time seen: 03/20/21 10:22 Interval history: Patient about the same. No chest pain or shortness of breath. Just weak. She had an uneventful night per nursing. Exam Narrative: Exam Narrative: General: chronically ill appearing AA female in NAD Heart: normal S1 and S2; no rub or gallop Lungs: decreased at bases, no wheezes. Abdomen: soft, nontender, nondistended, positive bowel sounds Extremities: 2 - 3+ edema in LEs and presacral area. Skin: No rash Objective Data Vital Signs Vital Signs: Vital Signs - 24 hr 03/19/21 12:00 03/19/21 14:00 03/19/21 16:00 Temperature 36.4 C 36.4 C L Pulse Rate 77 79 81 Respiratory Rate 20 14 Blood Pressure 128/76 111/72 Pulse Oximetry 99 100 03/19/21 18:00 03/19/21 20:00 03/19/21
--- NOTE | 2021-03-20 10:22 | PM.PNNEP ---
Progress Note: A&P Assessment and Plan (1) JOSE (acute kidney injury): Code(s): N17.9 - Acute kidney failure, unspecified Status: Acute Assessment and Plan: suspect due to ATN from infection/abscess/bacteremia urine electrolytes are non-prerenal urine eosinophils negative Bicarbonate level is okay. making urine (off diuretics). More from the left than from the right. The right kidney is atrophied and is expected to make less urine. Creatinine seems to be at a plateau of around 3.5 Still above baseline (1.6 to 2.1). edematous. responded pretty well to the diuretic. will check urine 'lytes and give some albumin and bumex one time today. (2) Stage 3b chronic kidney disease: Code(s): N18.32 - Chronic kidney disease, stage 3b Status: Chronic Assessment and Plan: CKD Due to hypertension and recurrent obstruction. Currently has bilateral nephrostomy tubes. baseline creatinine seems to average out around 1.6 - 2.1mg/dl (3) Hypokalemia: Code(s): E87.6 - Hypokalemia Status: Acute Assessment and Plan: due to poor oral intake and previous diuresis She is getting TPN so refeeding may be an issue as well. Will leave this to adjustments in her TPN. replete as tolerated/needed (4) Bacteremia: Code(s): R78.81 - Bacteremia Status: Acute Assessment and Plan: as noted by blood cultures Repeat cultures negative. on Zosyn and linezolid. Infectious Disease on the case. (5) Abdominal abscess: Status: Resolved Assessment and Plan: as noted by imaging s/p drainage and catheter placement by IR (6) Bilateral ureteral obstruction: Code(s): N13.5 - Crossing vessel and stricture of ureter without hydronephrosis Status: Acute Assessment and Plan: s/p percutaneous nephrostomy tubes in place follows with Urology and IR (7) Protein calorie malnutrition: Code(s): E46 - Unspecified protein-calorie malnutrition Status: Chronic Assessment and Plan: not awake enought to eat on TPN for nutritional support Dietary following (8) Anasarca: Code(s): R60.1 - Generalized edema Status: Acute Assessment and Plan: secondary to her hypoalbuminemia along with venous and lymphatic obstruction from her malignancy likely to be an ongoing/chronic issue Albumin is also low, contributing to the swelling. Getting TPN and family is going to feed the patient so hopefully nutritional issues will improve Subjective Date/time seen: 03/20/21 10:22 Interval history: Patient about the same. No chest pain or shortness of breath. Just weak. She had an uneventful night per nursing. Exam Narrative: Exam Narrative: General: chronically ill appearing AA female in NAD Heart: normal S1 and S2; no rub or gallop Lungs: decreased at bases, no wheezes. Abdomen: soft, nontender, nondistended, positive bowel sounds Extremities: 2 - 3+ edema in LEs and presacral area. Skin: No rash Objective Data Vital Signs Vital Signs: Vital Signs - 24 hr 03/19/21 12:00 03/19/21 14:00 03/19/21 16:00 Temperature 36.4 C 36.4 C L Pulse Rate 77 79 81 Respiratory Rate 20 14 Blood Pressure 128/76 111/72 Pulse Oximetry 99 100 03/19/21 18:00 03/19/21 20:00 03/19/21 21:58 Temperature 36.3 C L Pulse Rate 81 84 86 Respiratory Rate 13 Blood Pressure 106/75 Pulse Oximetry 100 03/19/21 23:48 03/20/21 00:00 03/20/21 02:00 Temperature 36.4 C Pulse Rate 81 84 77 Respiratory Rate 17 19 Blood Pressure 116/81 Pulse Oximetry 100 99 03/20/21 03:25 03/20/21 04:00 03/20/21 06:00 Temperature 36.4 C L Pulse Rate 84 80 71 Respiratory Rate 20 15 Blood Pressure 129/73 Pulse Oximetry 100 99 03/20/21 08:00 03/20/21 09:35 03/20/21 10:00 Temperature 36.4 C Pulse Rate 69 79 81 Respiratory Rate 12 Blood Pressure 113/68 Pulse Oximetry 98 Int
[2021-03-20] MEDS: BUMETANIDE INJ 1 MG/4 ML VIAL IV PUSH (13:02)
[2021-03-20] MEDS: ALBUMIN HUMAN 25% 12.5 GM/50ML 50 ML IVPB (13:08)
[2021-03-20 13:17] LABS: Heparin Induced Platelet Antib Negative (Negative)
[2021-03-20 13:23] LABS: Glucose Point of Care 141 mg/dl (65-105)
[2021-03-20 13:39] LABS: Creatinine Urine 22.1 mg/dL; Total Protein Urine Random 38 mg/dL; Ur Ttl Prot Creatinine Ratio 1.72 mg/mg (0-0.20)
[2021-03-20 13:41] LABS: Sodium Urine Random 54 meq/L
--- NOTE | 2021-03-20 13:47 | PCPTNOTE ---
Patient refused treatment this session due to pain. Patient states that her neck is painful. RN notified of patients c/o pain. PT will continue to follow per plan of care.
[2021-03-20] MEDS: FAT EMULSIONS IV 20% 250 ML 20.83 ML IVPB (14:42)
[2021-03-20] MEDS: AMINO ACIDS 5%/DEXTROSE 15% 2,000 ML with MULTIVITAMINS-12 INJ VIAL 1 2.5 ML, MULTIVITA... 60 ML IV CONT (14:42)
[2021-03-20 15:12] LABS: Triglycerides 32 mg/dL (<150)
[2021-03-20 15:35] LABS: UFH SRA Result Interpretation Negative (Negative)
[2021-03-20] MEDS: KCL 20 MEQ/SW 100 ML 100 ML 50 MEQ IVPB (16:09)
--- NOTE | 2021-03-20 17:21 | PM.IMPN ---
Progress Note: A&P Assessment and Plan (1) Encephalopathy: Code(s): G93.40 - Encephalopathy, unspecified Status: Acute Assessment and Plan: Patient's mental status wax/wanes. Etilogy unclear. Brain CT 03/17 showing no acute changes. Better day today. Ammonia level negative. Increase activity level as toelrated Will continue current treatment. (2) Acute respiratory failure: Code(s): J96.00 - Acute respiratory failure, unspecified whether with hypoxia or hypercapnia Status: Acute Assessment and Plan: Patient developed acute hypoxic respiratory failure since admission. Was requiring high flow therapy with face mask at one point but improved with diuresis and abx. Etiology unclear but suspect either PNA and/or pulmonary edema. Serial CXR showing improvement with diuretic therapy. Now on room air. Resolved. Continue to monitor Labs and x-ray (3) Bacteremia: Code(s): R78.81 - Bacteremia Status: Acute Assessment and Plan: Patient with 1 blood culture growing Bacteroides fragilis and VRE. 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 Source most likely related to the abdominal abscess or possibly urine. Infectious Disease consulted and appreciate their input. Continue IV Zosyn and Linezolid. Prognosis guarded. (4) Abdominal abscess: Status: Resolved Assessment and Plan: Initial CT abdomen/pelvis 03/07/21 with 10.2cm fluid collection in right abdomen with percutaneous drain placed 03/10. 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 Treatment of acute issues as noted above. Having regular bowel movements. General surgery managing the drain (5) Pneumonia: Qualifiers: Pneumonia type: due to unspecified organism Laterality: bilateral Code(s): J18.9 - Pneumonia, unspecified organism Status: Acute Assessment and Plan: Imaging was showing chest with bilateral infiltrates which were new. CXR slowly improving felt related to pulmonary edema but can not exclude PNA. Weaned to room air. On IV antibiotics as noted above. Less likely metastatic disease. Continue to monitor. Continue respiratory treatments prn. (6) Acute on chronic renal failure: Qualifiers: Acute renal failure type: unspecified Code(s): N17.9 - Acute kidney failure, unspecified; N18.9 - Chronic kidney disease, unspecified Status: Acute Assessment and Plan: UOP 1375 yesterday and decreasing. Nephrology and Urology consulted and appreciate input. Nephrostomy tubes remain in place; decreased output from right. Creatinine continues to trend down slowly and today at 3.5. Edematous but improved overall. Continue TPN. (7) Bilateral ureteral obstruction: Code(s): N13.5 - Crossing vessel and stricture of ureter without hydronephrosis Status: Acute Assessment and Plan: Bilateral percutaneous nephrostomy tubes in place. Unclear on urine output from each kidney but have been told smaller volumes from the right is more of a chronic issue. Appreciate help from Urology. Will continue to follow. Instructed RN to flush right nephrostomy tube again today to ensure drainage (8) Anasarca: Code(s): R60.1 - Generalized edema Status: Acute Assessment and Plan: Most likely result of low albumin. Albumin stable at 2.1. Edema improving. Will continue to follow with other treatments. Continue TPN. Dietary following. (9) Protein calorie malnutrition: Code(s): E46 - Unspecified protein-calorie malnutrition Status: Chronic Assessment and Plan: Poor oral intake. Family wanting patient to become strong enough to resume chemo. This does not seem too realistic if patient unable to eat. TPN started and patient tolerating it well. Continue Megace. Continue TPN. Discussed with dtr today about comfort measures if patie
[2021-03-20 18:09] LABS: Glucose Point of Care 123 mg/dl (65-105)
[2021-03-21] VITALS (29 sets, daily range): BP systolic 101–132; BP diastolic 70–85; PULSE 77–154; RESP 10–27; TEMP 34.8–36.9; O2SAT 95–100
[2021-03-21 04:40] LABS: Basophils Percent Auto 0.1 % (0.2-1.2); Immature Granulocyte Absolute 0.09 K/mm3 (0.00-0.031); Immature Granulocyte Percent A 0.6 % (0-0.5); Lymphocytes Absolute Auto 0.22 K/mm3 (0.9-3.2); Lymphocytes Percent Auto 1.6 % (18.3-44.2); Mean Corpuscular HGB Conc 33.3 g/dl (32-36); Mean Corpuscular Hemoglobin 30.1 pg (26-34); Mean Corpuscular Volume 90.4 fl (80-100); Mean Platelet Volume 11.9 fl (7.4-10.4); Monocytes Absolute Auto 0.3 K/mm3 (0.1-0.6); Neutrophils Absolute Auto 13.5 K/mm3 (1.3-6.7); Neutrophils Percent Auto 95.7 % (45.5-73.1); Nucleated Red Blood Cells Absolute Auto 0.1 K/mm3 (0.0-0.012); Nucleated Red Blood Cells Perc 0.4 % (0.0-0.2); Platelet Count Result 48 k/mm3 (150-375); Red Blood Count 2.19 M/mm3 (4.2-5.4); Red Cell Distribution Width 18.1 % (11.5-14.5); White Blood Count 14.1 K/mm3 (4.5-10.0)
[2021-03-21 04:55] LABS: Alanine Aminotransferase 9 U/L (4-35); Albumin Level 2.2 g/dL (3.5-5.1); Alkaline Phosphatase 74 U/L (38-126); Anion Gap 10 mmol/L (8-16); Aspartate Amino Transferase 17 U/L (14-36); Bilirubin,Total 0.3 mg/dL (0.2-1.3); Blood Urea Nitrogen 71 mg/dL (7-17); Calcium 7.6 mg/dL (8.4-10.2); Carbon Dioxide 16 mmol/L (22-30); Chloride 100 mmol/L (98-107); Estimated CRCL calculation 18 ml/min; Estimated Glomerular Filt Rate 18; Glucose 155 mg/dL (65-105); Magnesium 1.5 mg/dL (1.6-2.3); Phosphorus 3.1 mg/dL (2.5-4.5); Potassium 3.5 mmol/L (3.4-5.0); Sodium 126 mmol/L (137-145)
[2021-03-21] MEDS: CENTRAL LINE FLUSH 10 ML IV PUSH ×2 (04:59→21:03)
[2021-03-21] MEDS: carvediloL 3.125 MG TABLET PO ×2 (04:59→21:02)
--- NOTE | 2021-03-21 05:07 | PC.NURSE ---
700ml L nephrostomy. 100ml R nephrostomy
[2021-03-21 05:11] LABS: Hematocrit 19.8 % (37.0-47.0); Hemoglobin 6.6 g/dL (12.0-15.0)
--- NOTE | 2021-03-21 05:23 | PC.NURSE ---
Spoke wt Dr. Cortés regarding HR that previously went to 150 while cleaning patient up. Patient had loose stool with blood in it. HR currently 100-120. ST. HGB noted at 6.6. Give 1 unit PRBC. Recheck CBC 1 hour post infusion. Consult GI in AM. Give 2gm Mag rider for 1.5 magnesium.
[2021-03-21] MEDS: MAGNESIUM SULF 2 GM/WATER 50ML 2 GM/50 ML BAG IVPB (05:44)
[2021-03-21 06:59] LABS: INR 1.1; Prothrombin Time 14.4 Seconds (11.1-14.7)
[2021-03-21 07:00] LABS: Partial Thromboplastin Time 38.7 SECONDS (22.3-36.8)
--- NOTE | 2021-03-21 07:30 | P.PNIM_ITS ---
Progress Note: A&P Assessment and Plan (1) Encephalopathy: Code(s): G93.40 - Encephalopathy, unspecified Status: Acute Assessment and Plan: Patient's mental status wax/wanes. Etilogy unclear. Brain CT 03/17 showing no acute changes. Better day today. Ammonia level negative. Increase activity level as toelrated Will continue current treatment. (2) Acute respiratory failure: Code(s): J96.00 - Acute respiratory failure, unspecified whether with hypoxia or hypercapnia Status: Acute Assessment and Plan: Patient developed acute hypoxic respiratory failure since admission. Was requiring high flow therapy with face mask at one point but improved with diuresis and abx. Etiology unclear but suspect either PNA and/or pulmonary edema. Serial CXR showing improvement with diuretic therapy. Now on room air. Resolved. Continue to monitor Labs and x-ray (3) Bacteremia: Code(s): R78.81 - Bacteremia Status: Acute Assessment and Plan: Patient with 1 blood culture growing Bacteroides fragilis and VRE. 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 Source most likely related to the abdominal abscess or possibly urine. Infectious Disease consulted and appreciate their input. Continue IV Zosyn and Linezolid. Prognosis guarded. (4) Abdominal abscess: Status: Resolved Assessment and Plan: Initial CT abdomen/pelvis 03/07/21 with 10.2cm fluid collection in right abdomen with percutaneous drain placed 03/10. 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 Treatment of acute issues as noted above. Having regular bowel movements. General surgery managing the drain (5) Pneumonia: Qualifiers: Pneumonia type: due to unspecified organism Laterality: bilateral Code(s): J18.9 - Pneumonia, unspecified organism Status: Acute Assessment and Plan: Imaging was showing chest with bilateral infiltrates which were new. CXR slowly improving felt related to pulmonary edema but can not exclude PNA. Weaned to room air. On IV antibiotics as noted above. Less likely metastatic disease. Continue to monitor. Continue respiratory treatments prn. (6) Acute on chronic renal failure: Qualifiers: Acute renal failure type: unspecified Code(s): N17.9 - Acute kidney failure, unspecified; N18.9 - Chronic kidney disease, unspecified Status: Acute Assessment and Plan: UOP 1375 yesterday and decreasing. Nephrology and Urology consulted and appreciate input. Nephrostomy tubes remain in place; decreased output from right. Creatinine continues to trend down slowly and today at 3.5. Edematous but improved overall. Continue TPN. (7) Bilateral ureteral obstruction: Code(s): N13.5 - Crossing vessel and stricture of ureter without hydronephrosis Status: Acute Assessment and Plan: Bilateral percutaneous nephrostomy tubes in place. Unclear on urine output from each kidney but have been told smaller volumes from the right is more of a chronic issue. Appreciate help from Urology. Will continue to follow. Instructed RN to flush right nephrostomy tube again today to ensure drainage (8) Anasarca: Code(s): R60.1 - Generalized edema Status: Acute Assessment and Plan: Most likely result of low albumin. Albumin stable at 2.1. Edema improving. Will continue to follow with other treatments. Continue TPN. Dietary following. (9) Protein calorie malnutrition: Code(s): E46 - Unspe
--- NOTE | 2021-03-21 09:00 | WPDGICN ---
Assessment and Plan Assessment and plan (1) Colon cancer: Code(s): C18.9 - Malignant neoplasm of colon, unspecified Status: Acute Assessment and Plan: Patient known to have unresectable colon cancer with carcinomatosis and intra-abdominal metastases. She has evidence for ureteral obstruction on this basis. I with rectal bleeding undoubtedly secondary to colon cancer. Her baseline hemoglobin is run approximately 7 half this morning was noted to be 6.6. Family not immediately available but will discuss further with him. endoscopy is unlikely to be able to stop bleeding. As tumor this not respond well to cautery. Diagnostically it appears that we already know this were bleeding. Would recommend service of management and comfort measures for this patient. Patient would unlikely be intolerant of preparation should an endoscopy be required however will plan to discuss this further with family primary care service. (2) Anemia: Code(s): D64.9 - Anemia, unspecified Status: Acute Assessment and Plan: Patient appears to have chronic anemia previously attributed to chronic disease. She has some evidence of lower GI blood loss which undoutedly is unresectable colon cancer. Would suggest transfusion if necessary. Monitor hemoglobin conservatively. Consider comfort measure (3) Encephalopathy: Code(s): G93.40 - Encephalopathy, unspecified Status: Acute Assessment and Plan: Patient is confused at the present time. Unable to give useful history. Will discuss with family when available. (4) Abdominal abscess: Status: Resolved Assessment and Plan: patient had intra-abdominal abscess contain is drain was placed and now has been removed in has been followed by surgery in this hospital stay. (5) Bilateral ureteral obstruction: Code(s): N13.5 - Crossing vessel and stricture of ureter without hydronephrosis Status: Acute Assessment and Plan: Patient required stenting of ureteral obstruction felt to be from tumor mass. (6) Anasarca: Code(s): R60.1 - Generalized edema Status: Acute GI Consult Note Consult date/time: 03/21/21 09:00 HPI: Dina Smith is a 60 year old female Mass see for rectal bleeding. Patient is unable have any significant history history is obtained from the is the chart as well as the nursing staff. Patient initially identified as having widely metastatic colon cancer in 2015. Apparently at that time she was in [place]. Apparently underwent debulking surgery but tumor mass itself was not completely excised. She has been seen at our institution over last year with recurrent episodes of bowel obstruction she is known to have a requiring small-bowel obsessed resection. She during this admission has intra-abdominal abscess requiring peritoneal drainage. This tube apparently was recently discontinued. Patient currently is somewhat confused unable to add any useful history. Nursing staff notes some blood in her stools last evening. Patient has previously initially been treated with FOLFOX is uncertain what recent therapy she has his received period CT scan on admission revealed malignant mass in sigmoid colon with pelvic lymphadenopathy multiple peritoneal masses consistent with metastatic disease. Review of Systems Review of Systems: ROS unobtainable: Yes unobtainable due to mental status [facility] Past Medical History Medical History Anemia of chronic disease Anxiety Chronic kidney disease (~03/2020) Baseline creatinine is between 2.0 and 2.40. Congestive heart failure Echocardiogram in March 2020 demonstrated grade 1 diastolic dysfunction with an EF of 55-60%. Left ventricular chamber was mildly enlarged. Deep vein thrombosis of right lower extremity History of small bowel obstruction Hypertension Metastatic colon cancer in female (~2017) Diagnosis in 2016, status
--- NOTE | 2021-03-21 09:13 | P.PNNP_ITS ---
Progress Note: A&P Assessment and Plan (1) JOSE (acute kidney injury): Code(s): N17.9 - Acute kidney failure, unspecified Status: Acute Assessment and Plan: * suspect due to ATN from infection/abscess/bacteremia * urine electrolytes are non-prerenal * urine eosinophils negative * Bicarbonate level is okay. * making urine (off diuretics). More from the left than from the right. The right kidney is atrophied and is expected to make less urine. * Creatinine seems to be at a plateau in the low to mid threes Still above baseline (1.6 to 2.1). * edematous. responded marginally to the Bumex and albumin yesterday. Will try another dose today. (2) Stage 3b chronic kidney disease: Code(s): N18.32 - Chronic kidney disease, stage 3b Status: Chronic Assessment and Plan: * CKD * Due to hypertension and recurrent obstruction. * Currently has bilateral nephrostomy tubes. * baseline creatinine seems to average out around 1.6 - 2.1mg/dl (3) Hypokalemia: Code(s): E87.6 - Hypokalemia Status: Acute Assessment and Plan: * Potassium okay today. (4) Bacteremia: Code(s): R78.81 - Bacteremia Status: Acute Assessment and Plan: * as noted by blood cultures * Repeat cultures negative. * on Zosyn and linezolid. * Infectious Disease on the case. (5) Abdominal abscess: Status: Resolved Assessment and Plan: * as noted by imaging * s/p drainage and catheter placement by IR (6) Bilateral ureteral obstruction: Code(s): N13.5 - Crossing vessel and stricture of ureter without hydronephrosis Status: Acute Assessment and Plan: * s/p percutaneous nephrostomy tubes in place * follows with Urology and IR (7) Protein calorie malnutrition: Code(s): E46 - Unspecified protein-calorie malnutrition Status: Chronic Assessment and Plan: * not awake enought to eat * on TPN for nutritional support * Dietary following (8) Anasarca: Code(s): R60.1 - Generalized edema Status: Acute Assessment and Plan: * secondary to her hypoalbuminemia along with venous and lymphatic obstruction from her malignancy * likely to be an ongoing/chronic issue * Albumin is also low, contributing to the swelling. * TPN seems to be the main nutritional source right now. Subjective Date/time seen: 03/21/21 09:13 Interval history: Patient about the same. Still very weak. Breathing is comfortable. Exam Narrative: Exam Narrative: General: chronically ill appearing AA female in NAD Heart: normal S1 and S2; no rub or gallop Lungs: decreased at bases, no wheezes. Abdomen: soft, nontender, nondistended, positive bowel sounds Extremities: 2 - 3+ edema in LEs and presacral area. Skin: No rash Or subcu nodules Objective Data Vital Signs Vital Signs: Vital Signs - 24 hr 03/20/21 09:35 03/20/21 10:00 03/20/21 12:00 Temperature 36.6 C Pulse Rate 79 81 71 Respiratory Rate 15 Blood Pressure 133/71 Pulse Oximetry 98 03/20/21 14:00 03/20/21 16:00 03/20/21 18:00 Temperature 36.4 C Pulse Rate 73 75 94 Respiratory Rate 16 Blood Pressure 137/90 Pulse Oximetry 99 03/20/21 19:49 03/20/21 20:00 03/20/21 22:00 Temper
--- NOTE | 2021-03-21 09:13 | PM.PNNEP ---
Progress Note: A&P Assessment and Plan (1) JOSE (acute kidney injury): Code(s): N17.9 - Acute kidney failure, unspecified Status: Acute Assessment and Plan: suspect due to ATN from infection/abscess/bacteremia urine electrolytes are non-prerenal urine eosinophils negative Bicarbonate level is okay. making urine (off diuretics). More from the left than from the right. The right kidney is atrophied and is expected to make less urine. Creatinine seems to be at a plateau in the low to mid threes Still above baseline (1.6 to 2.1). edematous. responded marginally to the Bumex and albumin yesterday. Will try another dose today. (2) Stage 3b chronic kidney disease: Code(s): N18.32 - Chronic kidney disease, stage 3b Status: Chronic Assessment and Plan: CKD Due to hypertension and recurrent obstruction. Currently has bilateral nephrostomy tubes. baseline creatinine seems to average out around 1.6 - 2.1mg/dl (3) Hypokalemia: Code(s): E87.6 - Hypokalemia Status: Acute Assessment and Plan: Potassium okay today. (4) Bacteremia: Code(s): R78.81 - Bacteremia Status: Acute Assessment and Plan: as noted by blood cultures Repeat cultures negative. on Zosyn and linezolid. Infectious Disease on the case. (5) Abdominal abscess: Status: Resolved Assessment and Plan: as noted by imaging s/p drainage and catheter placement by IR (6) Bilateral ureteral obstruction: Code(s): N13.5 - Crossing vessel and stricture of ureter without hydronephrosis Status: Acute Assessment and Plan: s/p percutaneous nephrostomy tubes in place follows with Urology and IR (7) Protein calorie malnutrition: Code(s): E46 - Unspecified protein-calorie malnutrition Status: Chronic Assessment and Plan: not awake enought to eat on TPN for nutritional support Dietary following (8) Anasarca: Code(s): R60.1 - Generalized edema Status: Acute Assessment and Plan: secondary to her hypoalbuminemia along with venous and lymphatic obstruction from her malignancy likely to be an ongoing/chronic issue Albumin is also low, contributing to the swelling. TPN seems to be the main nutritional source right now. Subjective Date/time seen: 03/21/21 09:13 Interval history: Patient about the same. Still very weak. Breathing is comfortable. Exam Narrative: Exam Narrative: General: chronically ill appearing AA female in NAD Heart: normal S1 and S2; no rub or gallop Lungs: decreased at bases, no wheezes. Abdomen: soft, nontender, nondistended, positive bowel sounds Extremities: 2 - 3+ edema in LEs and presacral area. Skin: No rash Or subcu nodules Objective Data Vital Signs Vital Signs: Vital Signs - 24 hr 03/20/21 09:35 03/20/21 10:00 03/20/21 12:00 Temperature 36.6 C Pulse Rate 79 81 71 Respiratory Rate 15 Blood Pressure 133/71 Pulse Oximetry 98 03/20/21 14:00 03/20/21 16:00 03/20/21 18:00 Temperature 36.4 C Pulse Rate 73 75 94 Respiratory Rate 16 Blood Pressure 137/90 Pulse Oximetry 99 03/20/21 19:49 03/20/21 20:00 03/20/21 22:00 Temperature 36.4 C L Pulse Rate 88 85 96 Respiratory Rate 23 H 22 H Blood Pressure 148/81 H Pulse Oximetry 98 100 03/20/21 23:45 03/21/21 00:00 03/21/21 02:00 Temperature 36.5 C Pulse Rate 86 86 99 Respiratory Rate 12 20 Blood Pressure 132/83 Pulse Oximetry 98 100 03/21/21 04:00 03/21/21 04:19 03/21/21 04:23 Temperature 36.4 C L Pulse Rate 137 H 113 H 119 H Respiratory Rate 27 H 20 21 H Blood Pressure 101/83 Pulse Oximetry 99 100 100 03/21/21 04:59 03/21/21 06:00 Temperature Pulse Rate 105 H 105 H Respiratory Rate Blood Pressure Pulse Oximetry Intake/Output Intake/Output: Intake & Output 03/18/21 03/19/21 03/20/21 03/21/21 23:59 23:59 2
--- NOTE | 2021-03-21 12:01 | PCPTNOTE ---
RN requested to hold PT today. Patient receiving blood.
[2021-03-21] MEDS: SODIUM CHLORIDE 0.9% IV 250 ML 30 ML ×2 (12:14→21:06)
[2021-03-21 12:18] LABS: Glucose Point of Care 81 mg/dl (65-105)
[2021-03-21] MEDS: LINEZOLID 600 MG/300 ML 600 MG/300 ML SOLN 300 MG IVPB ×2 (12:32→23:30)
[2021-03-21] MEDS: SILVERGEL (ELTA) 45 ML 1 APPLIC TOPICAL (12:34)
[2021-03-21] MEDS: SCOPOLAMINE 1.5 MG PATCH TRANSDERM (12:34)
--- NOTE | 2021-03-21 12:34 | PCOTNOTE ---
The patient treatment was not able to be completed this date. Per RN, patient is not appropriate to be seen due to decreased strength, refusals of activity and GI bleed. Will plan to continue treatment per plan of care.
[2021-03-21] MEDS: FAMOTIDINE 20 MG/2 ML VIAL IV PUSH ×2 (12:35→23:30)
[2021-03-21 13:38] LABS: Mean Corpuscular HGB Conc 32.9 g/dl (32-36); Mean Corpuscular Hemoglobin 29.8 pg (26-34); Mean Corpuscular Volume 90.8 fl (80-100); Mean Platelet Volume 11.9 fl (7.4-10.4); Platelet Count Result 27 k/mm3 (150-375); Red Blood Count 2.28 M/mm3 (4.2-5.4); Red Cell Distribution Width 16.2 % (11.5-14.5)
[2021-03-21 13:41] LABS: Hematocrit 20.7 % (37.0-47.0); Hemoglobin 6.8 g/dL (12.0-15.0)
[2021-03-21 16:19] LABS: Glucose Point of Care 147 mg/dl (65-105)
[2021-03-21 21:19] LABS: Glucose Point of Care 98 mg/dl (65-105)
[2021-03-22] VITALS (17 sets, daily range): BP systolic 104–127; BP diastolic 72–81; PULSE 85–102; RESP 16–29; TEMP 36.3–36.6; O2SAT 96–100
[2021-03-22 00:10] LABS: Glucose Point of Care 94 mg/dl (65-105)
[2021-03-22 01:10] LABS: Hematocrit 27.7 % (37.0-47.0); Hemoglobin 9.3 g/dL (12.0-15.0)
[2021-03-22] MEDS: AMINO ACIDS 5%/DEXTROSE 15% 2,000 ML with MULTIVITAMINS-12 INJ VIAL 1 2.5 ML, MULTIVITA... 60 ML IV CONT (01:21)
[2021-03-22] MEDS: FAT EMULSIONS IV 20% 250 ML 20.83 ML IVPB ×2 (01:24→15:13)
[2021-03-22] MEDS: CENTRAL LINE FLUSH 10 ML IV PUSH ×3 (05:58→19:41)
[2021-03-22 06:12] LABS: Hemoglobin 9.2 g/dL (12.0-15.0); Mean Corpuscular HGB Conc 34.1 g/dl (32-36); Mean Corpuscular Hemoglobin 28.7 pg (26-34); Mean Corpuscular Volume 84.1 fl (80-100); Red Blood Count 3.21 M/mm3 (4.2-5.4); Red Cell Distribution Width 16.7 % (11.5-14.5); White Blood Count 15.3 K/mm3 (4.5-10.0)
[2021-03-22 06:23] LABS: Anion Gap 13 mmol/L (8-16); Blood Urea Nitrogen 72 mg/dL (7-17); Calcium 7.3 mg/dL (8.4-10.2); Carbon Dioxide 13 mmol/L (22-30); Chloride 101 mmol/L (98-107); Estimated CRCL calculation 15 ml/min; Estimated Glomerular Filt Rate 17; Glucose 158 mg/dL (65-105); Potassium 2.9 mmol/L (3.4-5.0); Sodium 127 mmol/L (137-145); Triglycerides 204 mg/dL (<150)
[2021-03-22 06:27] LABS: Magnesium 1.8 mg/dL (1.6-2.3)
[2021-03-22 06:36] LABS: Platelet Count Result 17 k/mm3 (150-375)
--- NOTE | 2021-03-22 08:30 | WPDGIPROGNO ---
Progress Note: A&P Assessment and Plan (1) Encephalopathy: Code(s): G93.40 - Encephalopathy, unspecified Status: Acute Assessment and Plan: Patient remains confused. Unable to obtain history. Her converse with patient at this time. (2) Abdominal abscess: Status: Resolved Assessment and Plan: Patient is status post recent drainage of intra-abdominal abscess. Percutaneous drain has been removed by surgery at this point. (3) Colon cancer: Code(s): C18.9 - Malignant neoplasm of colon, unspecified Status: Acute Assessment and Plan: Colon cancer identified 2015. Patient had debulking but was unable to remove the tumor. She has had small-bowel obstruction intra-abdominal abscess and ureteral obstruction based on residual carcinomatosis. Poor overall prognosis. Residual cancer in the sigmoid colon appears to be etiology for ongoing blood loss. (4) Metastatic colon cancer in female: Onset Date: ~2017 Code(s): C18.9 - Malignant neoplasm of colon, unspecified Status: Chronic Assessment and Plan: Patient has carcinomatosis with diffusely metastatic colon cancer. This would preclude gastrostomy tube placement. Under resected colon cancer is apparent etiology for recent and continued rectal bleeding. Main therapy at this point would be directed towards correcting platelet count. It appears as though this is the losing gaines period would should reconsider code status on this unfortunate patient. (5) Anemia: Code(s): D64.9 - Anemia, unspecified Status: Acute Assessment and Plan: Patient with chronic anemia. Decline in hemoglobin noted with some recent GI blood loss. This undoubtedly is from the tumor that remains. Aggravated by IR and low platelet count. Endoscopy would not be able to cauterize the tumor. Agree with transfusing and platelets if indicated. Monitor hemoglobin. Would defer invasive testing in this patient. (6) Thrombocytopenia: Code(s): D69.6 - Thrombocytopenia, unspecified Status: Acute Subjective Date/time seen: 03/22/21 08:30 patient poorly responsive at this time. She will mumble in response to questions. But is unintelligible. Nursing staff reports continued blood evident in her stools. She received 3units of packed cells yesterday. Review of Systems Review of Systems: ROS unobtainable: Yes unobtainable due to medical condition Exam Narrative: Exam Narrative: Patient reports patient to be lethargic week . she does not appear to be alert or oriented at this time. HEENT exam reveals no icterus. Lungs reveal a few rhonchi. Abdomen is somewhat distended. Mild distention. No localized tenderness. She has incision from recent drainage. Objective Data Vital Signs Vital Signs: Vital Signs - 24 hr 03/21/21 09:25 03/21/21 09:44 03/21/21 10:00 Temperature 97.6 F 97.5 F L Pulse Rate 90 94 96 Respiratory Rate 16 22 H Blood Pressure 106/80 106/73 Pulse Oximetry 98 99 03/21/21 10:44 03/21/21 11:44 03/21/21 12:00 Temperature 97.5 F L 97.5 F L 97.5 F L Pulse Rate 96 83 85 Respiratory Rate 20 22 H 17 Blood Pressure 107/78 107/70 112/74 Pulse Oximetry 99 99 100 03/21/21 12:02 03/21/21 14:00 03/21/21 16:00 Temperature 97.5 F L 97.3 F L Pulse Rate 77 89 80 Respiratory Rate 19 17 Blood Pressure 112/74 106/76 Pulse Oximetry 100 100 03/21/21 16:42 03/21/21 17:00 03/21/21 18:00 Temperature 97.6 F 97.6 F 97.5 F L Pulse Rate 86 79 83 Respiratory Rate 10 L 12 12 Blood Pressure 108/72 110/72 109/76 Pulse Oximetry 100 100 100 03/21/21 19:00 03/21/21 20:00 03/21/21 20:49 Temperature 98.4 F 97.4 F L 96.9 F L Pulse Rate 81 78 92 Respiratory Rate 13 14 16 Blood Pressure 115/85 106/77 103/70 Pulse Oximetry 100 100 96 03/21/21 21:02 03/21/21 21:05 03/21/21 22:00 Temperature 97.2 F L Pulse Rate 97 86 97 Respiratory Rate 16 Blood Pressure 113/74 Pulse Oxime
--- NOTE | 2021-03-22 08:35 | P.PNIM_ITS ---
Progress Note: A&P Assessment and Plan (1) Encephalopathy: Code(s): G93.40 - Encephalopathy, unspecified Status: Acute Assessment and Plan: Patient's mental status wax/wanes. Etilogy unclear. Brain CT 03/17 showing no acute changes. Better day today. Ammonia level negative. Increase activity level as toelrated Will continue current treatment. (2) Acute respiratory failure: Code(s): J96.00 - Acute respiratory failure, unspecified whether with hypoxia or hypercapnia Status: Acute Assessment and Plan: Patient developed acute hypoxic respiratory failure since admission. Was requiring high flow therapy with face mask at one point but improved with diuresis and abx. Etiology unclear but suspect either PNA and/or pulmonary edema. Serial CXR showing improvement with diuretic therapy. Now on room air. Resolved. Continue to monitor Labs and x-ray (3) Bacteremia: Code(s): R78.81 - Bacteremia Status: Acute Assessment and Plan: Patient with 1 blood culture growing Bacteroides fragilis and VRE. 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 Source most likely related to the abdominal abscess or possibly urine. Infectious Disease consulted and appreciate their input. Continue IV Zosyn and Linezolid. Prognosis guarded. (4) Abdominal abscess: Status: Resolved Assessment and Plan: Initial CT abdomen/pelvis 03/07/21 with 10.2cm fluid collection in right abdomen with percutaneous drain placed 03/10. 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 Treatment of acute issues as noted above. Having regular bowel movements. General surgery managing the drain (5) Pneumonia: Qualifiers: Pneumonia type: due to unspecified organism Laterality: bilateral Code(s): J18.9 - Pneumonia, unspecified organism Status: Acute Assessment and Plan: Imaging was showing chest with bilateral infiltrates which were new. CXR slowly improving felt related to pulmonary edema but can not exclude PNA. Weaned to room air. On IV antibiotics as noted above. Less likely metastatic disease. Continue to monitor. Continue respiratory treatments prn. (6) Acute on chronic renal failure: Qualifiers: Acute renal failure type: unspecified Code(s): N17.9 - Acute kidney failure, unspecified; N18.9 - Chronic kidney disease, unspecified Status: Acute Assessment and Plan: Nephrology and Urology consulted and appreciate input. Nephrostomy tubes remain in place; decreased output from right. Creatinine continues to trend down slo wly and today at 3.5. Edematous but improved overall. Continue TPN. (7) Bilateral ureteral obstruction: Code(s): N13.5 - Crossing vessel and stricture of ureter without hydronephrosis Status: Acute Assessment and Plan: Bilateral percutaneous nephrostomy tubes in place. Unclear on urine output from each kidney but have been told smaller volumes from the right is more of a chronic issue. Appreciate help from Urology. Will continue to follow. Instructed RN to flush right nephrostomy tube again today to ensure drainage (8) Anasarca: Code(s): R60.1 - Generalized edema Status: Acute Assessment and Plan: Most likely result of low albumin. Albumin stable at 2.1. Edema improving. Wi ll continue to follow with other treatments. Continue TPN. Dietary following. (9) Protein calorie malnutrition: Code(s): E46 - Unspecified protein-calorie malnutrition
--- NOTE | 2021-03-22 09:11 | PCOTNOTE ---
Per RN, patient inappropriate for therapy this date. Will continue plan of care as appropriate.
[2021-03-22] MEDS: carvediloL 3.125 MG TABLET PO ×2 (09:25→19:54)
[2021-03-22] MEDS: SILVERGEL (ELTA) 45 ML 1 APPLIC TOPICAL (09:29)
[2021-03-22] MEDS: KETOROLAC 0.5% OP SOLN 5 ML BOTTLE 1 DROP RIGHT EYE (09:29)
[2021-03-22] MEDS: FAMOTIDINE 20 MG/2 ML VIAL IV PUSH ×2 (09:30→19:54)
[2021-03-22] MEDS: LINEZOLID 600 MG/300 ML 600 MG/300 ML SOLN 300 MG IVPB ×2 (09:35→19:54)
[2021-03-22] MEDS: SODIUM CHLORIDE 0.9% IV 250 ML 30 ML IV CONT (11:50)
--- NOTE | 2021-03-22 12:42 | PCPTNOTE ---
Per RN, patient inappropriate for therapy this date. PT will continue to follow per plan of care.
--- NOTE | 2021-03-22 13:10 | PCDIET ---
Nutrition Follow-Up Complete: Nutrition Diagnosis: Increased protein needs related to pressure ulcer as evidence by comprehensive wound assessment and needs of 94-110g of protein daily for wound healing. Nutrition Goal: Patient to meet estimated nutritional needs. Goal in progress. Patient with minimal intake (0-10% of meals) on regular diet. Continues on Clinimix 5/15 at 60mL/hr with 250mL 20% lipids for 1522kcal and 72g protein per day. MD to discuss goals of care with patient/family later today. Last recorded weight is 69.9 kg which is down from last review. +I/O. Bowel Motility: BM x 2 today. Labs Reviewed: WBC (15.3), RBC (3.21), Hgb (9.2), Hct (27.0), Glu (158), BUN (72), Cr (3.3), K (2.9), Na (127), TG (204) Meds Noted: Coreg, Pepcid, Zyvox, KCl, Zosyn, Sodium Bicarbonate, NS at 30mL/hr Additional Notes: No change in skin reported. Will continue to monitor with same goal. Nutrition Monitoring and Evaluation: Follow up every Thursday/Thursday. Follow daily in ICU rounds.
--- NOTE | 2021-03-22 15:58 | PC.NURSE ---
Spoke with Dr. Canseco regarding the renewal of antibiotics of Zosyn and Zyvox. New order to continue both antibiotics until 2100 dose on 03/24
--- NOTE | 2021-03-22 16:08 | P.PNNP_ITS ---
Progress Note: A&P Assessment and Plan (1) JOSE (acute kidney injury): Code(s): N17.9 - Acute kidney failure, unspecified Status: Acute Assessment and Plan: * suspect due to ATN from infection/abscess/bacteremia * urine electrolytes are non-prerenal * urine eosinophils negative * Bicarbonate level is 13. * making less urine More from the left than from the right. The right kidney is atrophied and is expected to make less urine. * Creatinine seems to be at a plateau in the low to mid threes Still above baseline (1.6 to 2.1). * edematous. will try more diuretics and albumin. (2) Stage 3b chronic kidney disease: Code(s): N18.32 - Chronic kidney disease, stage 3b Status: Chronic Assessment and Plan: * CKD * Due to hypertension and recurrent obstruction. * Currently has bilateral nephrostomy tubes. * baseline creatinine seems to average out around 1.6 - 2.1mg/dl (3) Hypokalemia: Code(s): E87.6 - Hypokalemia Status: Acute Assessment and Plan: * Potassium low. * given supplement earlier * adjusting in TPN * Discussed with Dr Cates (4) Bacteremia: Code(s): R78.81 - Bacteremia Status: Acute Assessment and Plan: * as noted by blood cultures * Repeat cultures negative. * on Zosyn and linezolid. * Infectious Disease on the case. (5) Abdominal abscess: Status: Resolved Assessment and Plan: * as noted by imaging * s/p drainage and catheter placement by IR (6) Bilateral ureteral obstruction: Code(s): N13.5 - Crossing vessel and stricture of ureter without hydronephrosis Status: Acute Assessment and Plan: * s/p percutaneous nephrostomy tubes in place * follows with Urology and IR (7) Protein calorie malnutrition: Code(s): E46 - Unspecified protein-calorie malnutrition Status: Chronic Assessment and Plan: * faimly to feed. * on TPN for nutritional support * Dietary following (8) Anasarca: Code(s): R60.1 - Generalized edema Status: Acute Assessment and Plan: * secondary to her hypoalbuminemia along with venous and lymphatic obstruction from her malignancy * likely to be an ongoing/chronic issue * Albumin is also low, contributing to the swelling. will try more albumin and bumex. * TPN seems to be the main nutritional source right now. Subjective Date/time seen: 03/22/21 16:08 Interval history: Patient is resting comfortably in bed. Still very weak. Breathing is comfortable. Exam Narrative: Exam Narrative: General: chronically ill appearing AA female in NAD Heart: normal S1 and S2; no rub or gallop Lungs: decreased at bases, no wheezes. Abdomen: soft, nontender, nondistended, positive bowel sounds Extremities: 2 - 3+ edema in LEs and presacral area. Skin: No rash Objective Data Vital Signs Vital Signs: Vital Signs - 24 hr 03/21/21 16:42 03/21/21 17:00 03/21/21 18:00 Temperature 36.4 C 36.4 C 36.4 C L Pulse Rate 86 79 83 Respiratory Rate 10 L 12 12 Blood Pressure 108/72 110/72 109/76 Pulse Oximetry 100 100 100 03/21/21 19:00 03/21/21 20:00 03/21/21 20:49 Temperature 36.9 C 36.3 C L 36.1 C L Pulse Rate 81 78 92 Respiratory Rate 13 14 16 Blood Pressure 115/85 106/77 103/70 Pulse Oximet
--- NOTE | 2021-03-22 16:08 | PM.PNNEP ---
Progress Note: A&P Assessment and Plan (1) JOSE (acute kidney injury): Code(s): N17.9 - Acute kidney failure, unspecified Status: Acute Assessment and Plan: suspect due to ATN from infection/abscess/bacteremia urine electrolytes are non-prerenal urine eosinophils negative Bicarbonate level is 13. making less urine More from the left than from the right. The right kidney is atrophied and is expected to make less urine. Creatinine seems to be at a plateau in the low to mid threes Still above baseline (1.6 to 2.1). edematous. will try more diuretics and albumin. (2) Stage 3b chronic kidney disease: Code(s): N18.32 - Chronic kidney disease, stage 3b Status: Chronic Assessment and Plan: CKD Due to hypertension and recurrent obstruction. Currently has bilateral nephrostomy tubes. baseline creatinine seems to average out around 1.6 - 2.1mg/dl (3) Hypokalemia: Code(s): E87.6 - Hypokalemia Status: Acute Assessment and Plan: Potassium low. given supplement earlier adjusting in TPN Discussed with Dr Cates (4) Bacteremia: Code(s): R78.81 - Bacteremia Status: Acute Assessment and Plan: as noted by blood cultures Repeat cultures negative. on Zosyn and linezolid. Infectious Disease on the case. (5) Abdominal abscess: Status: Resolved Assessment and Plan: as noted by imaging s/p drainage and catheter placement by IR (6) Bilateral ureteral obstruction: Code(s): N13.5 - Crossing vessel and stricture of ureter without hydronephrosis Status: Acute Assessment and Plan: s/p percutaneous nephrostomy tubes in place follows with Urology and IR (7) Protein calorie malnutrition: Code(s): E46 - Unspecified protein-calorie malnutrition Status: Chronic Assessment and Plan: faimly to feed. on TPN for nutritional support Dietary following (8) Anasarca: Code(s): R60.1 - Generalized edema Status: Acute Assessment and Plan: secondary to her hypoalbuminemia along with venous and lymphatic obstruction from her malignancy likely to be an ongoing/chronic issue Albumin is also low, contributing to the swelling. will try more albumin and bumex. TPN seems to be the main nutritional source right now. Subjective Date/time seen: 03/22/21 16:08 Interval history: Patient is resting comfortably in bed. Still very weak. Breathing is comfortable. Exam Narrative: Exam Narrative: General: chronically ill appearing AA female in NAD Heart: normal S1 and S2; no rub or gallop Lungs: decreased at bases, no wheezes. Abdomen: soft, nontender, nondistended, positive bowel sounds Extremities: 2 - 3+ edema in LEs and presacral area. Skin: No rash Objective Data Vital Signs Vital Signs: Vital Signs - 24 hr 03/21/21 16:42 03/21/21 17:00 03/21/21 18:00 Temperature 36.4 C 36.4 C 36.4 C L Pulse Rate 86 79 83 Respiratory Rate 10 L 12 12 Blood Pressure 108/72 110/72 109/76 Pulse Oximetry 100 100 100 03/21/21 19:00 03/21/21 20:00 03/21/21 20:49 Temperature 36.9 C 36.3 C L 36.1 C L Pulse Rate 81 78 92 Respiratory Rate 13 14 16 Blood Pressure 115/85 106/77 103/70 Pulse Oximetry 100 100 96 03/21/21 21:02 03/21/21 21:05 03/21/21 22:00 Temperature 36.2 C L Pulse Rate 97 86 97 Respiratory Rate 16 Blood Pressure 113/74 Pulse Oximetry 100 03/21/21 22:05 03/21/21 23:05 03/21/21 23:28 Temperature 36.3 C L 34.8 C L 36.3 C L Pulse Rate 97 92 86 Respiratory Rate 18 15 18 Blood Pressure 115/85 114/76 112/78 Pulse Oximetry 95 96 97 03/22/21 00:00 03/22/21 02:00 03/22/21 04:00 Temperature 36.6 C 36.4 C Pulse Rate 90 86 97 Respiratory Rate 17 16 Blood Pressure 105/73 104/77 Pulse Oximetry 97 99 03/22/21 06:00 03/22/21 08:00 03/22/21 09:25 Temperature 36.4 C L Pulse Rate 102 H 89 97 Respiratory Rate
[2021-03-22] MEDS: ALBUMIN HUMAN 25% 25 GM/100 ML 100 ML IVPB (16:30)
[2021-03-22] MEDS: BUMETANIDE INJ 2.5 MG/10 ML VIAL 2 MG IV PUSH (17:53)
[2021-03-22 19:16] LABS: Platelet Antibody, Direct IgG POSITIVE (NEGATIVE)
[2021-03-22 23:05] LABS: Glucose Point of Care 222 mg/dl (65-105)
[2021-03-23] VITALS (21 sets, daily range): BP systolic 92–130; BP diastolic 62–79; PULSE 72–96; RESP 20–30; TEMP 35.9–36.3; O2SAT 98–100
[2021-03-23] MEDS: AMINO ACIDS 5%/DEXTROSE 15% 2,000 ML with MULTIVITAMINS-12 INJ VIAL 1 2.5 ML, MULTIVITA... 60 ML IV CONT (03:55)
[2021-03-23] MEDS: CENTRAL LINE FLUSH 10 ML IV PUSH ×3 (05:32→20:07)
[2021-03-23 06:35] LABS: Albumin Level 2.1 g/dL (3.5-5.1); Anion Gap 11 mmol/L (8-16); Blood Urea Nitrogen 78 mg/dL (7-17); Calcium 7.4 mg/dL (8.4-10.2); Carbon Dioxide 12 mmol/L (22-30); Chloride 100 mmol/L (98-107); Estimated CRCL calculation 16 ml/min; Estimated Glomerular Filt Rate 19; Glucose 159 mg/dL (65-105); Phosphorus 3.1 mg/dL (2.5-4.5); Potassium 2.7 mmol/L (3.4-5.0); Sodium 123 mmol/L (137-145)
[2021-03-23] MEDS: LINEZOLID 600 MG/300 ML 600 MG/300 ML SOLN 300 MG IVPB ×2 (09:03→20:06)
[2021-03-23] MEDS: ALBUMIN HUMAN 25% 25 GM/100 ML 100 ML IVPB ×2 (09:03→16:26)
[2021-03-23] MEDS: KETOROLAC 0.5% OP SOLN 5 ML BOTTLE 1 DROP RIGHT EYE (09:04)
[2021-03-23 09:05] LABS: Immature Platelet Fraction Pct 4.8 % (0.9-11.2); Mean Corpuscular HGB Conc 34.8 g/dl (32-36); Mean Corpuscular Hemoglobin 28.6 pg (26-34); Mean Platelet Volume 9.5 fl (7.4-10.4); Red Blood Count 2.45 M/mm3 (4.2-5.4); Red Cell Distribution Width 16.6 % (11.5-14.5); White Blood Count 14.9 K/mm3 (4.5-10.0)
[2021-03-23] MEDS: FAMOTIDINE 20 MG/2 ML VIAL IV PUSH ×2 (09:09→20:06)
[2021-03-23 09:12] LABS: Hematocrit 20.1 % (37.0-47.0); Platelet Count Result 19 k/mm3 (150-375)
[2021-03-23] MEDS: MEGESTROL ACETATE (*CHEMO) ORAL SUSP 40 MG/ML SYR 800 MG PO (09:44)
[2021-03-23] MEDS: BUMETANIDE INJ 2.5 MG/10 ML VIAL 2 MG IV PUSH ×2 (09:44→17:15)
[2021-03-23] MEDS: SODIUM BICARBONATE TAB 650 MG TABLET 1300 MG PO ×3 (09:45→18:32)
[2021-03-23] MEDS: SILVERGEL (ELTA) 45 ML 1 APPLIC TOPICAL (09:45)
[2021-03-23] MEDS: carvediloL 3.125 MG TABLET PO ×2 (09:45→20:06)
--- NOTE | 2021-03-23 09:55 | WPDGIPROGNO ---
Progress Note: A&P Additional Plan GI Day [facility] for Dr. Thomas 23 Mar 2021 Patient confused and lethargic. Large bloody BM just now. VSS. Firm, NT Hct 20, PTL 19. Cr 3.1 A/P Metastatic colon cancer with acute blood loss anemia and hematochezia - Likely bleeding from residual cancer - Patient has MSOF - Patient has CKD and low platelelets - There is no way to stop this bleeding with surgery or endoscopy - Patient is not currently candidate for endoscopy - I do not believe IR is viable for this patient due to untreatable nature of cancer, comorbidities and renal dz - Case discussed with MARGARET Miller and she may be agreeable to comfort measures - Case reviewed with nurse Felix Thanks, ABG [phone] Subjective Date/time seen: 03/23/21 09:55 Objective Data Vital Signs Vital Signs: Vital Signs - 24 hr 03/22/21 10:00 03/22/21 11:49 03/22/21 12:00 Temperature 36.4 C L 36.4 C Pulse Rate 92 95 93 Respiratory Rate 29 H 28 H Blood Pressure 119/81 119/72 Pulse Oximetry 99 100 03/22/21 12:05 03/22/21 12:34 03/22/21 14:00 Temperature 36.4 C 36.4 C Pulse Rate 93 85 89 Respiratory Rate 28 H 20 Blood Pressure 119/72 121/74 Pulse Oximetry 99 100 03/22/21 16:00 03/22/21 18:00 03/22/21 19:54 Temperature 36.4 C L Pulse Rate 93 96 96 Respiratory Rate 20 Blood Pressure 116/72 Pulse Oximetry 100 03/22/21 20:00 03/22/21 23:10 03/23/21 00:00 Temperature 36.3 C L Pulse Rate 96 95 Respiratory Rate 24 H 30 H Blood Pressure 127/80 130/79 Pulse Oximetry 100 96 100 03/23/21 04:00 03/23/21 05:28 03/23/21 09:45 Temperature 35.9 C L Pulse Rate 88 88 82 Respiratory Rate 24 H Blood Pressure 103/68 Pulse Oximetry 100 Intake/Output Intake/Output: Intake & Output 03/20/21 03/21/21 03/22/21 03/23/21 23:59 23:59 23:59 23:59 Intake Total 3220 1783 4333.1 1369.9 Output Total 3055 1100 575 400 Balance 695 999 3064.1 969.9 Meds/Results Medications: Active Medications Generic Name Dose Route Start Last Admin Trade Name Freq PRN Reason Stop Dose Admin Acetaminophen 650 mg 03/06/21 20:24 03/18/21 21:13 Acetaminophen 325 Mg Tablet PO 650 mg Q4H PRN Administration Pain Rated 4-6 Artificial Tears 1 drop 03/06/21 20:24 Artificial Tears Op Soln 15 Ml Bottle EACH EYE Q4-6H PRN Dry Eyes Bumetanide 2 mg 03/22/21 17:00 03/23/21 09:44 Bumetanide Inj 2.5 Mg/10 Ml Vial IV PUSH 2 mg BID BORIS Administration Carvedilol 3.125 mg 03/06/21 21:00 03/23/21 09:45 Carvedilol 3.125 Mg Tablet PO 3.125 mg Q12HR BORIS Administration Diphenhydramine HCl 25 mg 03/06/21 20:24 03/06/21 21:42 Diphenhydramine Hcl Elixir 12.5 Mg/5 Ml Udc PO 25 mg Q6H PRN Administration Pain Rated 1-3 Docusate Sodium 100 mg 03/07/21 09:00 03/23/21 09:45 Docusate Sodium 100 Mg Capsule PO Not Given BID BORIS Famotidine 20 mg 03/16/21 09:00 03/23/21 09:09 Famotidine 20 Mg/2 Ml Vial IV PUSH 20 mg Q12HR BORIS Administration Heparin Sodium (Beef Lung) 50 units 03/06/21 13:07 Heparin Flush 50 Units/5 Ml Syringe IV PUSH PRN PRN after intermittent infusion Piperacillin Sod/Tazobactam Sod 2.25 gm in 50 mls @ 100 mls/hr 03/11/21 10:30 03/23/21 07:01 Zosyn 2.25 Gm/D5w 50 Ml IVPB 03/24/21 23:59 Infused Q6HR BORIS Infusion Dextrose 1,000 mls @ 50 mls/hr 03/13/21 13:47 Dextrose 10% IV CONT .Q20H PRN if PN is interrupted Multivitamins 2.5 ml/ 2,005 mls @ 60 mls/hr 03/13/21 14:30 03/23/21 03:55 Multivitamins 2.5 ml/ Amino IV CONT 60 mls/hr Acids/Dextrose .Q24H BORIS Administration Protocol Fat Emulsion Intravenous 250 mls @ 20.833 mls/hr 03/13/21 14:30 03/23/21 03:56 Lipids 20% IVPB Infused Q24H BORIS Infusion Linezolid 600 mg in 300 mls @ 300 mls/hr 03/22/21 09:00 03/23/21 09:03 Zyvox IVPB 03/24/21 23:59 300 mls/hr Q12HR BORIS Administration Albumin Human 100 mls @ 60 mls/hr 03/22/21
--- NOTE | 2021-03-23 11:19 | P.PNNP_ITS ---
Progress Note: A&P Assessment and Plan (1) JOSE (acute kidney injury): Code(s): N17.9 - Acute kidney failure, unspecified Status: Acute Assessment and Plan: * suspect due to ATN from infection/abscess/bacteremia * urine electrolytes are non-prerenal * urine eosinophils negative * Sodium level is low at 123 * Bicarbonate level is 12. * Most likely this is from the Clinimix. This can't be adjusted much. Consider stopping this for today? Can pharmacy add chemicals to the Clinimix? * If so we can use D10W with 4 amps of bicarb which would correct the sodium and the bicarb. * making less urine More from the left than from the right. The right kidney is atrophied and is expected to make less urine. * Creatinine stable in the low threes. * edematous. On albumin and diuretics. * Possible change in code status noted. (2) Stage 3b chronic kidney disease: Code(s): N18.32 - Chronic kidney disease, stage 3b Status: Chronic Assessment and Plan: * CKD * Due to hypertension and recurrent obstruction. * Currently has bilateral nephrostomy tubes. * baseline creatinine at 1.6 - 2.1mg/dl (3) Hypokalemia: Code(s): E87.6 - Hypokalemia Status: Acute Assessment and Plan: * Potassium low. * given supplement earlier Cates (4) Bacteremia: Code(s): R78.81 - Bacteremia Status: Acute Assessment and Plan: * as noted by blood cultures * Repeat cultures negative. * on Zosyn and linezolid. * Infectious Disease on the case. (5) Abdominal abscess: Status: Resolved Assessment and Plan: * as noted by imaging * s/p drainage and catheter placement by IR (6) Bilateral ureteral obstruction: Code(s): N13.5 - Crossing vessel and stricture of ureter without hydronephrosis Status: Acute Assessment and Plan: * s/p percutaneous nephrostomy tubes in place * follows with Urology and IR (7) Protein calorie malnutrition: Code(s): E46 - Unspecified protein-calorie malnutrition Status: Chronic Assessment and Plan: * faimly to feed. * on TPN for nutritional support * Dietary following (8) Anasarca: Code(s): R60.1 - Generalized edema Status: Acute Assessment and Plan: * secondary to her hypoalbuminemia along with venous and lymphatic obstruction from her malignancy * likely to be an ongoing/chronic issue * Albumin is also low, contributing to the swelling. On supplements. * TPN seems to be the main nutritional source right now. Subjective Date/time seen: 03/23/21 11:19 Interval history: Patient is resting comfortably in bed. Not is interactive. Breathing is comfortable. Exam Narrative: Exam Narrative: General: chronically ill appearing AA female in NAD Heart: normal S1 and S2; no rub Lungs: decreased at bases Abdomen: soft, nontender, nondistended, positive bowel sounds Extremities: 2 - 3+ edema in LEs and presacral area. Skin: No rash Objective Data Vital Signs Vital Signs: Vital Signs - 24 hr 03/22/21 11:49 03/22/21 12:00 03/22/21 12:05 Temperature 36.4 C L 36.4 C 36.4 C Pulse Rate 95 93 93 Respiratory Rate 29 H 28 H 28 H Blood Pressure 119/81 119/72 119/72 Pulse Oximetry 99 100 99 03/22/21 12:34 03/22/21 14:00 03/22/21 16:00 Temperature 36.4 C 36.4 C L
--- NOTE | 2021-03-23 11:19 | PM.PNNEP ---
Progress Note: A&P Assessment and Plan (1) JOSE (acute kidney injury): Code(s): N17.9 - Acute kidney failure, unspecified Status: Acute Assessment and Plan: suspect due to ATN from infection/abscess/bacteremia urine electrolytes are non-prerenal urine eosinophils negative Sodium level is low at 123 Bicarbonate level is 12. Most likely this is from the Clinimix. This can't be adjusted much. Consider stopping this for today? Can pharmacy add chemicals to the Clinimix? If so we can use D10W with 4 amps of bicarb which would correct the sodium and the bicarb. making less urine More from the left than from the right. The right kidney is atrophied and is expected to make less urine. Creatinine stable in the low threes. edematous. On albumin and diuretics. Possible change in code status noted. (2) Stage 3b chronic kidney disease: Code(s): N18.32 - Chronic kidney disease, stage 3b Status: Chronic Assessment and Plan: CKD Due to hypertension and recurrent obstruction. Currently has bilateral nephrostomy tubes. baseline creatinine at 1.6 - 2.1mg/dl (3) Hypokalemia: Code(s): E87.6 - Hypokalemia Status: Acute Assessment and Plan: Potassium low. given supplement earlier Cates (4) Bacteremia: Code(s): R78.81 - Bacteremia Status: Acute Assessment and Plan: as noted by blood cultures Repeat cultures negative. on Zosyn and linezolid. Infectious Disease on the case. (5) Abdominal abscess: Status: Resolved Assessment and Plan: as noted by imaging s/p drainage and catheter placement by IR (6) Bilateral ureteral obstruction: Code(s): N13.5 - Crossing vessel and stricture of ureter without hydronephrosis Status: Acute Assessment and Plan: s/p percutaneous nephrostomy tubes in place follows with Urology and IR (7) Protein calorie malnutrition: Code(s): E46 - Unspecified protein-calorie malnutrition Status: Chronic Assessment and Plan: faimly to feed. on TPN for nutritional support Dietary following (8) Anasarca: Code(s): R60.1 - Generalized edema Status: Acute Assessment and Plan: secondary to her hypoalbuminemia along with venous and lymphatic obstruction from her malignancy likely to be an ongoing/chronic issue Albumin is also low, contributing to the swelling. On supplements. TPN seems to be the main nutritional source right now. Subjective Date/time seen: 03/23/21 11:19 Interval history: Patient is resting comfortably in bed. Not is interactive. Breathing is comfortable. Exam Narrative: Exam Narrative: General: chronically ill appearing AA female in NAD Heart: normal S1 and S2; no rub Lungs: decreased at bases Abdomen: soft, nontender, nondistended, positive bowel sounds Extremities: 2 - 3+ edema in LEs and presacral area. Skin: No rash Objective Data Vital Signs Vital Signs: Vital Signs - 24 hr 03/22/21 11:49 03/22/21 12:00 03/22/21 12:05 Temperature 36.4 C L 36.4 C 36.4 C Pulse Rate 95 93 93 Respiratory Rate 29 H 28 H 28 H Blood Pressure 119/81 119/72 119/72 Pulse Oximetry 99 100 99 03/22/21 12:34 03/22/21 14:00 03/22/21 16:00 Temperature 36.4 C 36.4 C L Pulse Rate 85 89 93 Respiratory Rate 20 20 Blood Pressure 121/74 116/72 Pulse Oximetry 100 100 03/22/21 18:00 03/22/21 19:54 03/22/21 20:00 Temperature 36.3 C L Pulse Rate 96 96 96 Respiratory Rate 24 H Blood Pressure 127/80 Pulse Oximetry 100 03/22/21 23:10 03/23/21 00:00 03/23/21 04:00 Temperature 35.9 C L Pulse Rate 95 88 Respiratory Rate 30 H 24 H Blood Pressure 130/79 103/68 Pulse Oximetry 96 100 100 03/23/21 05:28 03/23/21 08:00 03/23/21 09:45 Temperature 36.2 C L Pulse Rate 88 96 82 Respiratory Rate 24 H Blood Pressure 106/67 Pulse Oximetry 98 03/23/21 10:00 [place]
[2021-03-23] MEDS: diphenhydrAMINE HCL ELIXIR 12.5 MG/5 ML UDC 25 MG PO (11:40)
[2021-03-23 12:36] LABS: Glucose Point of Care 166 mg/dl (65-105)
[2021-03-23] MEDS: FAT EMULSIONS IV 20% 250 ML 20.83 ML IVPB (15:17)
[2021-03-23 17:19] LABS: Glucose Point of Care 148 mg/dl (65-105)
[2021-03-23 17:49] LABS: Hematocrit 22.4 % (37.0-47.0); Mean Corpuscular HGB Conc 35.7 g/dl (32-36); Mean Corpuscular Hemoglobin 29.4 pg (26-34); Mean Corpuscular Volume 82.4 fl (80-100); Mean Platelet Volume 9.6 fl (7.4-10.4); Platelet Count Result 90 k/mm3 (150-375); Red Blood Count 2.72 M/mm3 (4.2-5.4); Red Cell Distribution Width 16.2 % (11.5-14.5)
[2021-03-23] MEDS: LORazepam INJ (*CRX) 2 MG/ML VIAL 0.5 MG IV PUSH (21:39)
[2021-03-23 23:36] LABS: Glucose Point of Care 169 mg/dl (65-105)
[2021-03-24] VITALS (10 sets, daily range): BP systolic 82–125; BP diastolic 53–76; PULSE 70–91; RESP 19–24; TEMP 35.8–36.6; O2SAT 95–100
[2021-03-24] MEDS: AMINO ACIDS 5%/DEXTROSE 15% 2,000 ML with MULTIVITAMINS-12 INJ VIAL 1 2.5 ML, MULTIVITA... 60 ML IV CONT (02:49)
[2021-03-24] MEDS: CENTRAL LINE FLUSH 10 ML IV PUSH ×3 (05:12→20:04)
[2021-03-24 06:24] LABS: Hematocrit 24.1 % (37.0-47.0); Hemoglobin 8.7 g/dL (12.0-15.0); Immature Platelet Fraction Pct 3.4 % (0.9-11.2); Mean Corpuscular HGB Conc 36.1 g/dl (32-36); Mean Corpuscular Volume 80.3 fl (80-100); Mean Platelet Volume 10.7 fl (7.4-10.4); Platelet Count Result 44 k/mm3 (150-375); Red Cell Distribution Width 15.9 % (11.5-14.5); White Blood Count 11.2 K/mm3 (4.5-10.0)
[2021-03-24 06:46] LABS: Anion Gap 12 mmol/L (8-16); Blood Urea Nitrogen 82 mg/dL (7-17); Calcium 7.4 mg/dL (8.4-10.2); Carbon Dioxide 11 mmol/L (22-30); Chloride 100 mmol/L (98-107); Estimated CRCL calculation 17 ml/min; Estimated Glomerular Filt Rate 19; Glucose 163 mg/dL (65-105); Potassium 2.6 mmol/L (3.4-5.0); Sodium 123 mmol/L (137-145)
[2021-03-24] MEDS: ALBUMIN HUMAN 25% 25 GM/100 ML 100 ML IVPB (07:41)
[2021-03-24] MEDS: BUMETANIDE INJ 2.5 MG/10 ML VIAL 2 MG IV PUSH ×3 (08:52→17:23)
[2021-03-24] MEDS: KETOROLAC 0.5% OP SOLN 5 ML BOTTLE 1 DROP RIGHT EYE (08:52)
[2021-03-24] MEDS: FAMOTIDINE 20 MG/2 ML VIAL IV PUSH ×2 (08:52→20:03)
[2021-03-24] MEDS: LINEZOLID 600 MG/300 ML 600 MG/300 ML SOLN 300 MG IVPB ×2 (08:52→20:03)
[2021-03-24] MEDS: SCOPOLAMINE 1.5 MG PATCH TRANSDERM (08:53)
[2021-03-24] MEDS: SILVERGEL (ELTA) 45 ML 1 APPLIC TOPICAL (09:00)
--- NOTE | 2021-03-24 09:44 | PM.IMPN ---
Progress Note: A&P Assessment and Plan (1) Encephalopathy: Code(s): G93.40 - Encephalopathy, unspecified Status: Acute Assessment and Plan: Patient's mental status wax/wanes. Etilogy unclear. Brain CT 03/17 showing no acute changes. Better day today. Ammonia level negative. Increase activity level as toelrated Will continue current treatment. (2) Acute respiratory failure: Code(s): J96.00 - Acute respiratory failure, unspecified whether with hypoxia or hypercapnia Status: Acute Assessment and Plan: Patient developed acute hypoxic respiratory failure since admission. Was requiring high flow therapy with face mask at one point but improved with diuresis and abx. Etiology unclear but suspect either PNA and/or pulmonary edema. Serial CXR showing improvement with diuretic therapy. Continue to monitor Labs and x-ray (3) Bacteremia: Code(s): R78.81 - Bacteremia Status: Acute Assessment and Plan: Patient with 1 blood culture growing Bacteroides fragilis and VRE. 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 Source most likely related to the abdominal abscess or possibly urine. Infectious Disease consulted and appreciate their input. Continue IV Zosyn and Linezolid. Prognosis guarded. (4) Abdominal abscess: Status: Resolved Assessment and Plan: Initial CT abdomen/pelvis 03/07/21 with 10.2cm fluid collection in right abdomen with percutaneous drain placed 03/10. 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 Treatment of acute issues as noted above. Having regular bowel movements. General surgery managing the drain (5) Pneumonia: Qualifiers: Pneumonia type: due to unspecified organism Laterality: bilateral Code(s): J18.9 - Pneumonia, unspecified organism Status: Acute Assessment and Plan: Imaging was showing chest with bilateral infiltrates which were new. CXR slowly improving felt related to pulmonary edema but can not exclude PNA. Weaned to room air. On IV antibiotics as noted above. Less likely metastatic disease. Continue to monitor. Continue respiratory treatments prn. (6) Acute on chronic renal failure: Qualifiers: Acute renal failure type: unspecified Code(s): N17.9 - Acute kidney failure, unspecified; N18.9 - Chronic kidney disease, unspecified Status: Acute Assessment and Plan: Nephrology and Urology consulted and appreciate input. Nephrostomy tubes remain in place; decreased output from right. Creatinine continues to trend down slowly and today at 3.5. Edematous but improved overall. Continue TPN. (7) Bilateral ureteral obstruction: Code(s): N13.5 - Crossing vessel and stricture of ureter without hydronephrosis Status: Acute Assessment and Plan: Bilateral percutaneous nephrostomy tubes in place. Unclear on urine output from each kidney but have been told smaller volumes from the right is more of a chronic issue. Appreciate help from Urology. Will continue to follow. Instructed RN to flush right nephrostomy tube again today to ensure drainage (8) Anasarca: Code(s): R60.1 - Generalized edema Status: Acute Assessment and Plan: Most likely result of low albumin. Albumin stable at 2.1. Edema improving. Will continue to follow with other treatments. Continue TPN. Dietary following. (9) Protein calorie malnutrition: Code(s): E46 - Unspecified protein-calorie malnutrition Status: Chronic Assessment and Plan: Poor oral intake. Family wanting patient to become strong enough to resume chemo. This does not seem too realistic if patient unable to eat. TPN started and patient tolerating it well. Continue Megace. Continue TPN. Discussed with dtr today about comfort measures if patient is unable to eat. Patient refusing any type of NG tube or GTub
[2021-03-24] MEDS: diphenhydrAMINE HCL ELIXIR 12.5 MG/5 ML UDC 25 MG PO ×2 (09:53→15:24)
--- NOTE | 2021-03-24 10:05 | WPDGIPROGNO ---
Progress Note: A&P Additional Plan GI [facility] for Dr. Thomas 24 Mar 2021 Patient confused and lethargic. Continues to have bloody BM. VSS. Firm, NT Hct 20->24, PTL 19->44. A/P Metastatic colon cancer with acute blood loss anemia and hematochezia - Likely bleeding from residual cancer - Patient has MSOF - Patient has CKD and low platelelets - There is no way to stop this bleeding with surgery or endoscopy - Patient is not currently candidate for endoscopy - I do not believe IR is viable for this patient due to untreatable nature of cancer, comorbidities and renal dz - Case reviewed with nurse [place] - Family has not decided on comfort care Further recommendations per Dr. Thomas tomorrow Thanks, [facility] [phone] Subjective Date/time seen: 03/24/21 10:05 Objective Data Vital Signs Vital Signs: Vital Signs - 24 hr 03/23/21 12:00 03/23/21 12:55 03/23/21 13:14 Temperature 36.2 C L 36.2 C L 36.0 C L Pulse Rate 79 86 75 Respiratory Rate 30 H 28 H 30 H Blood Pressure 104/65 104/65 92/65 L Pulse Oximetry 100 100 100 03/23/21 13:34 03/23/21 15:00 03/23/21 15:23 Temperature 36.2 C L Pulse Rate 74 72 Respiratory Rate 24 H Blood Pressure 111/70 Pulse Oximetry 100 100 03/23/21 16:00 03/23/21 16:05 03/23/21 16:21 Temperature 36.1 C L 36.1 C L 36.3 C L Pulse Rate 89 81 81 Respiratory Rate 24 H 28 H 22 H Blood Pressure 120/71 120/71 107/72 Pulse Oximetry 100 100 100 03/23/21 17:12 03/23/21 17:27 03/23/21 18:00 Temperature 36.0 C L 36.0 C L Pulse Rate 80 75 89 Respiratory Rate 20 20 Blood Pressure 102/68 94/62 L Pulse Oximetry 98 98 03/23/21 20:00 03/23/21 20:06 03/23/21 23:55 Temperature 35.9 C L Pulse Rate 81 78 Respiratory Rate 20 Blood Pressure 114/71 Pulse Oximetry 100 100 03/24/21 00:00 03/24/21 04:00 03/24/21 08:00 Temperature 36.1 C L 36.5 C 36.0 C L Pulse Rate 83 74 79 Respiratory Rate 20 19 24 H Blood Pressure 103/76 88/61 L 104/61 Pulse Oximetry 100 100 100 Intake/Output Intake/Output: Intake & Output 03/21/21 03/22/21 03/23/21 03/24/21 23:59 23:59 23:59 23:59 Intake Total 1783 4333.1 3318.9 2355 Output Total 1100 575 650 160 Balance 683 3758.1 2668.9 2195 Meds/Results Medications: Active Medications Generic Name Dose Route Start Last Admin Trade Name Freq PRN Reason Stop Dose Admin Acetaminophen 650 mg 03/06/21 20:24 03/18/21 21:13 Acetaminophen 325 Mg Tablet PO 650 mg Q4H PRN Administration Pain Rated 4-6 Artificial Tears 1 drop 03/06/21 20:24 Artificial Tears Op Soln 15 Ml Bottle EACH EYE Q4-6H PRN Dry Eyes Bumetanide 2 mg 03/22/21 17:00 03/24/21 08:52 Bumetanide Inj 2.5 Mg/10 Ml Vial IV PUSH 2 mg BID BORIS Administration Carvedilol 3.125 mg 03/06/21 21:00 03/23/21 20:06 Carvedilol 3.125 Mg Tablet PO 3.125 mg Q12HR BORIS Administration Diphenhydramine HCl 25 mg 03/06/21 20:24 03/24/21 09:53 Diphenhydramine Hcl Elixir 12.5 Mg/5 Ml Udc PO 25 mg Q6H PRN Administration Pain Rated 1-3 Docusate Sodium 100 mg 03/07/21 09:00 03/23/21 16:25 Docusate Sodium 100 Mg Capsule PO Not Given BID BORIS Famotidine 20 mg 03/16/21 09:00 03/24/21 08:52 Famotidine 20 Mg/2 Ml Vial IV PUSH 20 mg Q12HR BORIS Administration Heparin Sodium (Beef Lung) 50 units 03/06/21 13:07 Heparin Flush 50 Units/5 Ml Syringe IV PUSH PRN PRN after intermittent infusion Piperacillin Sod/Tazobactam Sod 2.25 gm in 50 mls @ 100 mls/hr 03/11/21 10:30 03/24/21 06:48 Zosyn 2.25 Gm/D5w 50 Ml IVPB 03/24/21 23:59 Infused Q6HR BORIS Infusion Dextrose 1,000 mls @ 50 mls/hr 03/13/21 13:47 Dextrose 10% IV CONT .Q20H PRN if PN is interrupted Multivitamins 2.5 ml/ 2,005 mls @ 60 mls/hr 03/13/21 14:30 03/24/21 02:49 Multivitamins 2.5 ml/ Amino IV CONT 60 mls/hr Acids/Dextrose .Q24H BORIS Administration Protocol Fat Emulsion Intravenous 250 mls @ 20.833
--- NOTE | 2021-03-24 10:10 | P.PNNP_ITS ---
Progress Note: A&P Assessment and Plan (1) JOSE (acute kidney injury): Code(s): N17.9 - Acute kidney failure, unspecified Status: Acute Assessment and Plan: * suspect due to ATN from infection/abscess/bacteremia * urine electrolytes are non-prerenal * urine eosinophils negative * Sodium level is low at 123 * Bicarbonate level is 11 * Will stop the Clinimix and the fat emulsion. * Give 3 amps of bicarb over this shift. This will help both the Sodium and the bicarb. making less urine will increase diuretics. * Creatinine stable in the low threes. * edematous. Due to local compression of vein and lymphatics from tumor. * Will stop albumin for now. * Overall prognosis is grim. (2) Stage 3b chronic kidney disease: Code(s): N18.32 - Chronic kidney disease, stage 3b Status: Chronic Assessment and Plan: * CKD * Due to hypertension and recurrent obstruction. * Currently has bilateral nephrostomy tubes. * baseline creatinine at 1.6 - 2.1mg/dl (3) Hypokalemia: Code(s): E87.6 - Hypokalemia Status: Acute Assessment and Plan: * Potassium low. * Getting an IV run of K. (4) Bacteremia: Code(s): R78.81 - Bacteremia Status: Acute Assessment and Plan: * as noted by blood cultures * Repeat cultures negative. * on Zosyn and linezolid. * Infectious Disease on the case. (5) Abdominal abscess: Status: Resolved Assessment and Plan: * as noted by imaging * s/p drainage and catheter placement by IR (6) Bilateral ureteral obstruction: Code(s): N13.5 - Crossing vessel and stricture of ureter without hydronephrosis Status: Acute Assessment and Plan: * s/p percutaneous nephrostomy tubes in place * follows with Urology and IR (7) Protein calorie malnutrition: Code(s): E46 - Unspecified protein-calorie malnutrition Status: Chronic Assessment and Plan: * faimly to feed. * on Clinimix. However her electrolytes are bad and she is getting fluid overload so will hold the Clinimix for now and increase diuretics. * Dietary following (8) Anasarca: Code(s): R60.1 - Generalized edema Status: Acute Assessment and Plan: * secondary to her hypoalbuminemia along with venous and lymphatic obstruction from her malignancy * likely to be an ongoing/chronic issue Subjective Date/time seen: 03/24/21 10:10 Interval history: Patient is a bit more short of breath. Not is interactive. Exam Narrative: Exam Narrative: General: chronically ill appearing AA female in NAD Heart: normal S1 and S2; no rub Lungs: decreased at bases. Mildly coarse. Abdomen: soft, nontender, nondistended, positive bowel sounds Extremities: 2 - 3+ edema in LEs and presacral area. Skin: No rash Objective Data Vital Signs Vital Signs: Vital Signs - 24 hr 03/23/21 12:00 03/23/21 12:55 03/23/21 13:14 Temperature 36.2 C L 36.2 C L 36.0 C L Pulse Rate 79 86 75 Respiratory Rate 30 H 28 H 30 H Blood Pressure 104/65 104/65 92/65 L Pulse Oximetry 100 100 100 03/23/21 13:34 03/23/21 15:00 03/23/21 15:23 Temperature 36.2 C L Pulse Rate 74 72 Respiratory Rate 24 H Blood Pressure 111/70 Pulse Oximetry 100 100 03/23/21 16:00
--- NOTE | 2021-03-24 10:10 | PM.PNNEP ---
Progress Note: A&P Assessment and Plan (1) JOSE (acute kidney injury): Code(s): N17.9 - Acute kidney failure, unspecified Status: Acute Assessment and Plan: suspect due to ATN from infection/abscess/bacteremia urine electrolytes are non-prerenal urine eosinophils negative Sodium level is low at 123 Bicarbonate level is 11 Will stop the Clinimix and the fat emulsion. Give 3 amps of bicarb over this shift. This will help both the Sodium and the bicarb. making less urine will increase diuretics. Creatinine stable in the low threes. edematous. Due to local compression of vein and lymphatics from tumor. Will stop albumin for now. Overall prognosis is grim. (2) Stage 3b chronic kidney disease: Code(s): N18.32 - Chronic kidney disease, stage 3b Status: Chronic Assessment and Plan: CKD Due to hypertension and recurrent obstruction. Currently has bilateral nephrostomy tubes. baseline creatinine at 1.6 - 2.1mg/dl (3) Hypokalemia: Code(s): E87.6 - Hypokalemia Status: Acute Assessment and Plan: Potassium low. Getting an IV run of K. (4) Bacteremia: Code(s): R78.81 - Bacteremia Status: Acute Assessment and Plan: as noted by blood cultures Repeat cultures negative. on Zosyn and linezolid. Infectious Disease on the case. (5) Abdominal abscess: Status: Resolved Assessment and Plan: as noted by imaging s/p drainage and catheter placement by IR (6) Bilateral ureteral obstruction: Code(s): N13.5 - Crossing vessel and stricture of ureter without hydronephrosis Status: Acute Assessment and Plan: s/p percutaneous nephrostomy tubes in place follows with Urology and IR (7) Protein calorie malnutrition: Code(s): E46 - Unspecified protein-calorie malnutrition Status: Chronic Assessment and Plan: faimly to feed. on Clinimix. However her electrolytes are bad and she is getting fluid overload so will hold the Clinimix for now and increase diuretics. Dietary following (8) Anasarca: Code(s): R60.1 - Generalized edema Status: Acute Assessment and Plan: secondary to her hypoalbuminemia along with venous and lymphatic obstruction from her malignancy likely to be an ongoing/chronic issue Subjective Date/time seen: 03/24/21 10:10 Interval history: Patient is a bit more short of breath. Not is interactive. Exam Narrative: Exam Narrative: General: chronically ill appearing AA female in NAD Heart: normal S1 and S2; no rub Lungs: decreased at bases. Mildly coarse. Abdomen: soft, nontender, nondistended, positive bowel sounds Extremities: 2 - 3+ edema in LEs and presacral area. Skin: No rash Objective Data Vital Signs Vital Signs: Vital Signs - 24 hr 03/23/21 12:00 03/23/21 12:55 03/23/21 13:14 Temperature 36.2 C L 36.2 C L 36.0 C L Pulse Rate 79 86 75 Respiratory Rate 30 H 28 H 30 H Blood Pressure 104/65 104/65 92/65 L Pulse Oximetry 100 100 100 03/23/21 13:34 03/23/21 15:00 03/23/21 15:23 Temperature 36.2 C L Pulse Rate 74 72 Respiratory Rate 24 H Blood Pressure 111/70 Pulse Oximetry 100 100 03/23/21 16:00 03/23/21 16:05 03/23/21 16:21 Temperature 36.1 C L 36.1 C L 36.3 C L Pulse Rate 89 81 81 Respiratory Rate 24 H 28 H 22 H Blood Pressure 120/71 120/71 107/72 Pulse Oximetry 100 100 100 03/23/21 17:12 03/23/21 17:27 03/23/21 18:00 Temperature 36.0 C L 36.0 C L Pulse Rate 80 75 89 Respiratory Rate 20 20 Blood Pressure 102/68 94/62 L Pulse Oximetry 98 98 03/23/21 20:00 03/23/21 20:06 03/23/21 23:55 Temperature 35.9 C L Pulse Rate 81 78 Respiratory Rate 20 Blood Pressure 114/71 Pulse Oximetry 100 100 03/24/21 00:00 03/24/21 04:00 03/24/21 08:00 Temperature 36.1 C L 36.5 C 36.0 C L Pulse Rate 83 74 79 Respiratory Rate 20 19 24 H Blood Pressure 103/76 88/61 L 1
[2021-03-24] MEDS: SODIUM BICARBONATE 8.4% 50 MEQ/50 ML SYRINGE IV PUSH ×3 (10:44→17:23)
[2021-03-24 11:36] LABS: Glucose Point of Care 156 mg/dl (65-105)
[2021-03-24] MEDS: CHLOROTHIAZIDE 500 MG VIAL IV PUSH (11:56)
[2021-03-24 18:42] LABS: Glucose Point of Care 105 mg/dl (65-105)
[2021-03-25] VITALS (41 sets, daily range): BP systolic 59–128; BP diastolic 39–88; PULSE 71–96; RESP 12–100; TEMP 30.2–36.1; O2SAT 12–100
[2021-03-25] MEDS: NOREPINEPHRINE 8 MG/D5W 250 ML 8 MG/250 ML BAG 9.38 MG IV CONT (00:41)
[2021-03-25 00:47] LABS: Alveolar/Arterial O2 Gradient 86.8 mmHg; Base Excess ABG -10.2 mEq/l (+/-2.0); Fractional Inspired Oxygen 28 %; HCO3 ABG 12.5 mEq/l (22.0-26.0); Oxygen Content ABG 12.5 %vol (16.0-22.0); Oxygen Saturation ABG 97.3 % (95.0-100.0); Oxyhemoglobin 95.6 % THb (90.0-100.0); PO2 ABG 90.1 mmHg (80.0-100.0); PO2 FiO2 Ratio Arterial Blood 3.22 %; Total Hemoglobin 9.2 g/dL (12.0-18.0); pH ABG 7.428 (7.350-7.450)
[2021-03-25 00:49] LABS: Device NASAL CANNULA; Modified Allen's Test Pass; PCO2 ABG 19.3 mmHg (35.0-45.0); Site Drawn RIGHT RADIAL
[2021-03-25] MEDS: HYDROCORTISONE SODIUM SUCCINATE 100 MG/2 ML VIAL IV PUSH ×3 (01:07→22:48)
[2021-03-25 01:21] LABS: Basophils Absolute Auto 0.1 K/mm3 (0.0-0.1); Basophils Percent Auto 0.7 % (0.2-1.2); Eosinophils Percent Auto 0.1 % (0-4.4); Hematocrit 22.9 % (37.0-47.0); Hemoglobin 8.3 g/dL (12.0-15.0); Immature Granulocyte Absolute 0.14 K/mm3 (0.00-0.031); Immature Granulocyte Percent A 2.1 % (0-0.5); Immature Platelet Fraction Pct 5.2 % (0.9-11.2); Lymphocytes Absolute Auto 0.04 K/mm3 (0.9-3.2); Lymphocytes Percent Auto 0.6 % (18.3-44.2); Mean Corpuscular HGB Conc 36.2 g/dl (32-36); Mean Corpuscular Hemoglobin 28.6 pg (26-34); Mean Platelet Volume 10.4 fl (7.4-10.4); Monocytes Absolute Auto 0.2 K/mm3 (0.1-0.6); Monocytes Percent Auto 2.5 % (2.6-8.5); Neutrophils Absolute Auto 6.4 K/mm3 (1.3-6.7); Nucleated Red Blood Cells Perc 0.6 % (0.0-0.2); Red Cell Distribution Width 15.6 % (11.5-14.5); White Blood Count 6.8 K/mm3 (4.5-10.0)
[2021-03-25 01:29] LABS: INR 1.9; Prothrombin Time 22.6 Seconds (11.1-14.7)
[2021-03-25 01:30] LABS: Partial Thromboplastin Time 45.2 SECONDS (22.3-36.8)
[2021-03-25 01:32] LABS: Alanine Aminotransferase 78 U/L (4-35); Albumin Level 2.2 g/dL (3.5-5.1); Alkaline Phosphatase 89 U/L (38-126); Anion Gap 13 mmol/L (8-16); Aspartate Amino Transferase 288 U/L (14-36); Bilirubin,Total 1.2 mg/dL (0.2-1.3); Blood Urea Nitrogen 83 mg/dL (7-17); Calcium 7.8 mg/dL (8.4-10.2); Carbon Dioxide 14 mmol/L (22-30); Chloride 99 mmol/L (98-107); Estimated CRCL calculation 14 ml/min; Estimated Glomerular Filt Rate 16; Glucose 51 mg/dL (65-105); Magnesium 1.4 mg/dL (1.6-2.3); Phosphorus 1.9 mg/dL (2.5-4.5); Potassium 3.3 mmol/L (3.4-5.0); Sodium 126 mmol/L (137-145)
[2021-03-25] MEDS: DEXTROSE 50% 25 GM/50 ML SYRINGE (01:45)
[2021-03-25 01:53] LABS: Glucose Point of Care 179 mg/dl (65-105)
[2021-03-25 01:56] LABS: Transferrin < 80 mg/dL (206-381)
[2021-03-25 02:05] LABS: Platelet Count Result 20 k/mm3 (150-375)
[2021-03-25 02:06] LABS: Anisocytosis 2+ (NORMAL); Hypochromasia 1+ (NORMAL); Platelet Estimate Decreased (Adequate)
[2021-03-25] MEDS: CENTRAL LINE FLUSH 10 ML IV PUSH ×3 (06:06→22:48)
[2021-03-25] MEDS: DEXTROSE 50% 25 GM/50 ML SYRINGE IV PUSH ×3 (06:22→09:52)
[2021-03-25 06:24] LABS: Glucose Point of Care 50 mg/dl (65-105)
[2021-03-25 06:42] LABS: Glucose Point of Care 153 mg/dl (65-105)
--- NOTE | 2021-03-25 08:38 | P.PNIM_ITS ---
Progress Note: A&P Assessment and Plan (1) Encephalopathy: Code(s): G93.40 - Encephalopathy, unspecified Status: Acute Assessment and Plan: Patient's mental status wax/wanes. Etilogy unclear. Brain CT 03/17 showing no acute changes. Better day today. Ammonia level negative. Increase activity level as toelrated Will continue current treatment. (2) Acute respiratory failure: Code(s): J96.00 - Acute respiratory failure, unspecified whether with hypoxia or hypercapnia Status: Acute Assessment and Plan: Patient developed acute hypoxic respiratory failure since admission. Was requiring high flow therapy with face mask at one point but improved with diuresis and abx. Etiology unclear but suspect either PNA and/or pulmonary edema. Serial CXR showing improvement with diuretic therapy. Continue to monitor Labs and x-ray (3) Bacteremia: Code(s): R78.81 - Bacteremia Status: Acute Assessment and Plan: Patient with 1 blood culture growing Bacteroides fragilis and VRE. 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 Source most likely related to the abdominal abscess or possibly urine. Infectious Disease consulted and appreciate their input. Continue IV Zosyn and Linezolid. Prognosis guarded. (4) Abdominal abscess: Status: Resolved Assessment and Plan: Initial CT abdomen/pelvis 03/07/21 with 10.2cm fluid collection in right abdomen with percutaneous drain placed 03/10. 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 Treatment of acute issues as noted above. Having regular bowel movements. General surgery managing the drain (5) Pneumonia: Qualifiers: Pneumonia type: due to unspecified organism Laterality: bilateral Code(s): J18.9 - Pneumonia, unspecified organism Status: Acute Assessment and Plan: Imaging was showing chest with bilateral infiltrates which were new. CXR slowly improving felt related to pulmonary edema but can not exclude PNA. Weaned to room air. On IV antibiotics as noted above. Less likely metastatic disease. Continue to monitor. Continue respiratory treatments prn. (6) Acute on chronic renal failure: Qualifiers: Acute renal failure type: unspecified Code(s): N17.9 - Acute kidney failure, unspecified; N18.9 - Chronic kidney disease, unspecified Status: Acute Assessment and Plan: Nephrology and Urology consulted and appreciate input. Nephrostomy tubes remain in place; decreased output from right. Creatinine continues to trend down slowly and today at 3.5. Edematous but improved overall. Continue TPN. (7) Bilateral ureteral obstruction: Code(s): N13.5 - Crossing vessel and stricture of ureter without hydronephrosis Status: Acute Assessment and Plan: Bilateral percutaneous nephrostomy tubes in place. Unclear on urine output from each kidney but have been told smaller volumes from the right is more of a chronic issue. Appreciate help from Urology. Will continue to follow. Instructed RN to flush right nephrostomy tube again today to ensure drainage (8) Anasarca: Code(s): R60.1 - Generalized edema Status: Acute Assessment and Plan: Most likely result of low albumin. Albumin stable at 2.1. Edema improving. Will continue to follow with other treatments. Continue TPN. Dietary following. (9) Protein calorie malnutrition: Code(s): E46 - Unspecified protein-calorie malnutrition Status: Chronic
--- NOTE | 2021-03-25 08:45 | WPDINTPN ---
Progress Note: A&P Assessment and Plan (1) Shock: Code(s): R57.9 - Shock, unspecified Status: Acute Assessment and Plan: Overnight patient became hypotensive and hypothermic and was started on Levophed She was placed on warming blanket Her shock appears to be multifactorial. She does have hypoalbuminemia, she was being diuresed so may have intravascular volume depletion, she has been having GI bleed, she has had bacteremia and abdominal abscess, she also has bilateral nephrostomy tubes, she also was getting per drool nutrition and no enteral intake She is at high risk of developing new infections. Chest x-ray done this morning does not appear significantly unremarkable. I will repeat blood cultures I will give a fluid bolus start her on a conservative amount of my maintenance IV for Bicarb to treat acidosis Broad-spectrum antibiotics (2) Hypoxia: Code(s): R09.02 - Hypoxemia Status: Acute Assessment and Plan: ON 2 L nasal cannula Chest x-ray and ABG reviewed Chest x-ray shows 1. Stable opacities of the right lung and improving opacities of the left lung, consistent with pneumonia and/or pulmonary edema. 2. Small right pleural effusion.Chest x-ray shows improving bilateral infiltrates suggestive of pulmonary edema/pneumonia (3) Pneumonia: Qualifiers: Pneumonia type: due to unspecified organism Laterality: bilateral Code(s): J18.9 - Pneumonia, unspecified organism Status: Acute Assessment and Plan: Chest x-ray shows bilateral infiltrates and cardiomegaly -infectious disease following the patient (4) Abdominal abscess: Status: Resolved Assessment and Plan: CT showed 10.2 x 6.9 x 12.7 cm fluid collection in the right abdomen of uncertain etiology, stable from 03/02/21 and new from 02/06/21. Patient received platelets transfusion yesterday. Abscess was drained by interventional radiology and drain was left in place for few days. Eventually drain was removed once the output diminished Patient completed a course of antibiotics (5) Acute on chronic renal failure: Qualifiers: Acute renal failure type: unspecified Code(s): N17.9 - Acute kidney failure, unspecified; N18.9 - Chronic kidney disease, unspecified Status: Acute Assessment and Plan: Acute kidney injury over chronic kidney disease Patient is being seen by Nephrology and Urology at this time Nephrostomies tubes are in place and draining. Urine output has decreased Decreased output from right side, right kidneys atrophic. Dr. Teran following the patient Replace low potassium, phosphate and Mag Nephrostomy tubes will be flushed to make sure they are patent (6) Bilateral ureteral obstruction: Code(s): N13.5 - Crossing vessel and stricture of ureter without hydronephrosis Status: Acute Assessment and Plan: The patient has percutaneous nephrostomies in place.. Dr. Teran with urology following Nurse will flush both nephrostomy tubes today (7) Protein calorie malnutrition: Code(s): E46 - Unspecified protein-calorie malnutrition Status: Chronic Assessment and Plan: Secondary to metastatic cancer and ileus Patient was not eating much and also refused PEG tube and did not want NG She was started on TPN which was discontinued now since she developed hypotension last night (8) Anasarca: Code(s): R60.1 - Generalized edema Status: Acute Assessment and Plan: Multifactorial likely secondary to low albumin venous obstruction and heart failure Hold diuretics at this time due to shock (9) Anemia: Code(s): D64.9 - Anemia, unspecified Status: Acute Assessment and Plan: Secondary to cancer chronic kidney disease and now with GI bleed She has received several blood products over last few days Continue to monitor hemoglobin Transfuse as needed (10) Thrombocytopenia: Code(s): D69.
[2021-03-25] MEDS: SODIUM BICARBONATE 8.4% 50 MEQ/50 ML SYRINGE 100 MEQ IV PUSH (09:03)
[2021-03-25] MEDS: SILVERGEL (ELTA) 45 ML 1 APPLIC TOPICAL (09:08)
[2021-03-25] MEDS: KETOROLAC 0.5% OP SOLN 5 ML BOTTLE 1 DROP RIGHT EYE (09:09)
[2021-03-25] MEDS: SODIUM CHLORIDE 0.9% IV 500 ML IV CONT (09:14)
[2021-03-25] MEDS: DEXTROSE 5%/LACTATED RINGERS 1,000 ML 50 ML IV CONT ×2 (09:52→19:50)
[2021-03-25] MEDS: POTASSIUM PHOS,M-BASIC-D-BASIC 20 MMOL in SODIUM CHLORIDE 0.9% IV 250 ML 64.17 MMOL IVPB (10:02)
[2021-03-25] MEDS: MAGNESIUM SULF 2 GM/WATER 50ML 2 GM/50 ML BAG IVPB (10:02)
[2021-03-25] MEDS: PANTOPRAZOLE SODIUM IV 40 MG VIAL IV PUSH ×2 (10:05→22:47)
[2021-03-25 10:50] LABS: Glucose Point of Care 111 mg/dl (65-105)
[2021-03-25 10:50] LABS: Glucose Point of Care 56 mg/dl (65-105)
--- NOTE | 2021-03-25 10:52 | PCDIET ---
ICU Rounding Note: Clinimix on hold for fluid overload. Patient eating minimally. Last recorded weight is 73kg which is increased from last review. +I/O. Bowel Motility: BM x 3 on 03/24/21. Labs Reviewed: Hgb (8.3), Hct (22.9), Glu (51), BUN (83), Cr (3.6), K (3.3), Na (126), Alb (2.2), Don Ca (9.24), PO4 (1.9), Mg (1.4) Meds Noted: D5LR at 50mL/hr, Magnesium Sulfate, Diuril, Novolog, Xopenex, Levophed, Protonix, KCl, K-Phos Additional Notes: Recommend resuming nutrition support, once medically appropriate. Following daily in ICU rounds. Assessing/reassessing every Thursday/Thursday.
[2021-03-25] MEDS: LINEZOLID 600 MG/300 ML 600 MG/300 ML SOLN 300 MG IVPB ×2 (11:33→19:53)
[2021-03-25] MEDS: NOREPINEPHRINE 8 MG/D5W 250 ML 8 MG/250 ML BAG 22.5 MG IV CONT ×2 (12:41→19:52)
[2021-03-25] MEDS: BUMETANIDE INJ 2.5 MG/10 ML VIAL 2 MG IV PUSH ×2 (12:47→17:14)
[2021-03-25 12:58] LABS: Glucose Point of Care 142 mg/dl (65-105)
--- NOTE | 2021-03-25 14:23 | PC.NURSE ---
Dr. Garcia at bedside discussing plan of care with daughter. Daughter aware patient may need intubation in the future if assessment does not improve.
--- NOTE | 2021-03-25 14:25 | PM.EVENT ---
Event Note Event Note Event Note: I met with patient's daughter at bedside and went over events of last night and patient's current status. Explained the patient is now hypotensive and on vasopressors. She may need of a developing infection. I also told her that we are transfusing platelets, replacing electrolyte and giving her some IV fluids. TPN was stopped due suspected new sepsis and volume overload. Patient's renal function has been getting worse. I also reiterated the patient's prognosis is grim and she will likely not survive this hospitalization. I again offered option of hospice and comfort care but she at this time is not open to any discussion. She told me that earlier she did not wanted tube feeding because NG tube was uncomfortable but now she feels the patient is being starved and we should start tube feeding. I explained her the reason for not starting tube feeding at this time due to GI bleed. I also mentioned the possibility of patient needing mechanical ventilation if mental status worsens or hypoxia worsens. Total additional Critical Care Time - 20 minutes
--- NOTE | 2021-03-25 15:59 | PM.PNNEP ---
Progress Note: A&P Assessment and Plan (1) JOSE (acute kidney injury): Code(s): N17.9 - Acute kidney failure, unspecified Status: Acute Assessment and Plan: suspect due to ATN from infection/abscess/bacteremia urine electrolytes are non-prerenal urine eosinophils negative suspect new infection may be present agree with bicarb fluids and pressor therapy however, overall prognosis is grim (2) Stage 3b chronic kidney disease: Code(s): N18.32 - Chronic kidney disease, stage 3b Status: Chronic Assessment and Plan: due to hypertension and recurrent obstruction. currently has bilateral nephrostomy tubes. baseline creatinine at 1.6 - 2.1mg/dl (3) Hypokalemia: Code(s): E87.6 - Hypokalemia Status: Acute Assessment and Plan: replete as needed due to poor nutrition (4) Bacteremia: Code(s): R78.81 - Bacteremia Status: Acute Assessment and Plan: as noted by blood cultures fepeat cultures pending on Zosyn and linezolid. Infectious Disease on the case. (5) Abdominal abscess: Status: Resolved Assessment and Plan: as noted by imaging s/p drainage and catheter placement by IR (6) Bilateral ureteral obstruction: Code(s): N13.5 - Crossing vessel and stricture of ureter without hydronephrosis Status: Acute Assessment and Plan: s/p percutaneous nephrostomy tubes in place follows with Urology and IR (7) Anasarca: Code(s): R60.1 - Generalized edema Status: Acute Assessment and Plan: secondary to her hypoalbuminemia along with venous and lymphatic obstruction from her malignancy likely to be an ongoing/chronic issue Will continue to follow. Subjective Date/time seen: 03/25/21 15:59 Chart reviewed since I last saw the patient -- she has continued to deteriorate despite maximal medical therapy; now with GI bleed in conjunction with worsening kidney function, metabolic acidosis, and hypotension; noted results of meeting with daughter by Dr. Garcia earlier today; started on bicarb fluids and pressors with repeat cultures done. Exam Narrative: Exam Narrative: General: chronically ill appearing AA female in NAD Heart: normal S1 and S2; no rub Lungs: decreased at bases and coarse Abdomen: soft, nontender, nondistended, positive bowel sounds Extremities: 2 - 3+ edema in LEs Skin: No rash Objective Data Vital Signs Vital Signs: Vital Signs Temp Pulse Resp BP Pulse Ox 03/25/21 14:00 89 03/25/21 12:41 90 122/72 03/25/21 12:00 35.8 C L 89 12 114/68 94 03/25/21 10:00 82 03/25/21 08:04 95 03/25/21 08:00 35.8 C L 87 20 97/63 L 95 03/25/21 06:30 35.8 C L 03/25/21 06:00 35.8 C L 90 03/25/21 05:30 35.6 C L 03/25/21 05:00 35.4 C L 03/25/21 04:30 35.4 C L 03/25/21 04:00 35.4 C L 96 30 H 92/68 L 92 03/25/21 03:30 35.2 C L 03/25/21 03:00 35.0 C L 03/25/21 02:59 34.9 C L 03/25/21 02:44 81 120/53 L 03/25/21 02:00 80 88/47 L 03/25/21 01:59 34.9 C L 03/25/21 01:30 77 70/55 L 03/25/21 01:29 34.6 C L 03/25/21 01:15 75 65/41 L 03/25/21 01:14 34.4 C L 03/25/21 01:00 75 77/45 L 03/25/21 00:59 30.3 C L 03/25/21 00:44 30.2 C L 03/25/21 00:41 77 59/39 L 03/25/21 00:29 31.7 C L 03/25/21 00:00 71 14 65/41 L 94 03/24/21 22:00 70 03/24/21 20:00 36.6 C 84 22 H 82/53 L 95 03/24/21 17:36 81 Intake/Output Intake/Output: Intake & Output 03/22/21 03/23/21 03/24/21 03/25/21 23:59 23:59 23:59 23:59 Intake Total 4333.1 3318.9 3375 1711.7 Output Total 575 650 310 100 Balance 3758.1 2668.9 3065 1611.7 Meds/Results Medications: Active Medications Generic Name Dose Route Start Last Admin Trade Name Freq PRN Reason Stop Dose Admin Acetaminophen 650 mg 03/06/21 20:24 03/18/21 21:13 Acetami
--- NOTE | 2021-03-25 15:59 | P.PNNP_ITS ---
Progress Note: A&P Assessment and Plan (1) JOSE (acute kidney injury): Code(s): N17.9 - Acute kidney failure, unspecified Status: Acute Assessment and Plan: * suspect due to ATN from infection/abscess/bacteremia * urine electrolytes are non-prerenal * urine eosinophils negative * suspect new infection may be present * agree with bicarb fluids and pressor therapy * however, overall prognosis is grim (2) Stage 3b chronic kidney disease: Code(s): N18.32 - Chronic kidney disease, stage 3b Status: Chronic Assessment and Plan: * due to hypertension and recurrent obstruction. * currently has bilateral nephrostomy tubes. * baseline creatinine at 1.6 - 2.1mg/dl (3) Hypokalemia: Code(s): E87.6 - Hypokalemia Status: Acute Assessment and Plan: * replete as needed * due to poor nutrition (4) Bacteremia: Code(s): R78.81 - Bacteremia Status: Acute Assessment and Plan: * as noted by blood cultures * fepeat cultures pending * on Zosyn and linezolid. * Infectious Disease on the case. (5) Abdominal abscess: Status: Resolved Assessment and Plan: * as noted by imaging * s/p drainage and catheter placement by IR (6) Bilateral ureteral obstruction: Code(s): N13.5 - Crossing vessel and stricture of ureter without hydronephrosis Status: Acute Assessment and Plan: * s/p percutaneous nephrostomy tubes in place * follows with Urology and IR (7) Anasarca: Code(s): R60.1 - Generalized edema Status: Acute Assessment and Plan: * secondary to her hypoalbuminemia along with venous and lymphatic obstruction from her malignancy * likely to be an ongoing/chronic issue Will continue to follow. Subjective Date/time seen: 03/25/21 15:59 Chart reviewed since I last saw the patient -- she has continued to deteriorate despite maximal medical therapy; now with GI bleed in conjunction with worsening kidney function, metabolic acidosis, and hypotension; noted results of meeting with daughter by Dr. Garcia earlier today; started on bicarb fluids and pressors with repeat cultures done. Exam Narrative: Exam Narrative: General: chronically ill appearing AA female in NAD Heart: normal S1 and S2; no rub Lungs: decreased at bases and coarse Abdomen: soft, nontender, nondistended, positive bowel sounds Extremities: 2 - 3+ edema in LEs Skin: No rash Objective Data Vital Signs Vital Signs: Vital Signs Temp Pulse Resp BP Pulse Ox 03/25/21 14:00 89 03/25/21 12:41 90 122/72 03/25/21 12:00 35.8 C L 89 12 114/68 94 03/25/21 10:00 82 03/25/21 08:04 95 03/25/21 08:00 35.8 C L 87 20 97/63 L 95 03/25/21 06:30 35.8 C L 03/25/21 06:00 35.8 C L 90 03/25/21 05:30 35.6 C L 03/25/21 05:00 35.4 C L 03/25/21 04:30 35.4 C L 03/25/21 04:00 35.4 C L 96 30 H 92/68 L 92 03/25/21 03:30 35.2 C L 03/25/21 03:00 35.0 C L 03/25/21 02:59 34.9 C L 03/25/21 02:44 81 120/53 L 03/25/21 02:00 80 88/47 L 03/25/21 01:59 34.9 C L 03/25/21 01:30 77 70/55 L 03/25/21 01:29 34.6 C L 03/25/21 01:15 75 65/41 L 03/25/21 01:14 34.4 C L
[2021-03-25] MEDS: SODIUM CHLORIDE 0.9% IV 250 ML 30 ML IV CONT (16:05)
[2021-03-25 17:30] LABS: Glucose Point of Care 96 mg/dl (65-105)
[2021-03-25 19:50] LABS: Hemoglobin 7.5 g/dL (12.0-15.0); Mean Corpuscular HGB Conc 36.6 g/dl (32-36); Mean Corpuscular Hemoglobin 28.7 pg (26-34); Mean Corpuscular Volume 78.5 fl (80-100); Mean Platelet Volume 9.3 fl (7.4-10.4); Platelet Count Result 97 k/mm3 (150-375); Red Blood Count 2.61 M/mm3 (4.2-5.4); Red Cell Distribution Width 16.6 % (11.5-14.5); White Blood Count 12.9 K/mm3 (4.5-10.0)
[2021-03-25 19:59] LABS: Hematocrit 20.5 % (37.0-47.0)
[2021-03-25 22:51] LABS: Glucose Point of Care 84 mg/dl (65-105)
[2021-03-26] VITALS (26 sets, daily range): BP systolic 80–146; BP diastolic 55–98; PULSE 78–95; RESP 12–24; TEMP 35.5–36.7; O2SAT 92–100
[2021-03-26 00:18] LABS: Glucose Point of Care 129 mg/dl (65-105)
[2021-03-26] MEDS: BUMETANIDE INJ 2.5 MG/10 ML VIAL 2 MG IV PUSH ×2 (00:19→05:17)
[2021-03-26 04:56] LABS: Hematocrit 22.2 % (37.0-47.0); Hemoglobin 7.7 g/dL (12.0-15.0); Immature Platelet Fraction Pct 2.2 % (0.9-11.2); Mean Corpuscular HGB Conc 34.7 g/dl (32-36); Mean Corpuscular Volume 80.7 fl (80-100); Mean Platelet Volume 10.1 fl (7.4-10.4); Platelet Count Result 61 k/mm3 (150-375); Red Blood Count 2.75 M/mm3 (4.2-5.4); Red Cell Distribution Width 17.2 % (11.5-14.5)
[2021-03-26] MEDS: CENTRAL LINE FLUSH 10 ML IV PUSH ×3 (05:17→20:40)
[2021-03-26] MEDS: HYDROCORTISONE SODIUM SUCCINATE 100 MG/2 ML VIAL IV PUSH ×3 (05:17→20:39)
[2021-03-26 05:56] LABS: Alanine Aminotransferase 104 U/L (4-35); Albumin Level 2.4 g/dL (3.5-5.1); Alkaline Phosphatase 120 U/L (38-126); Anion Gap 22 mmol/L (8-16); Aspartate Amino Transferase 224 U/L (14-36); Bilirubin,Total 1.7 mg/dL (0.2-1.3); Blood Urea Nitrogen 82 mg/dL (7-17); Calcium 7.6 mg/dL (8.4-10.2); Carbon Dioxide 9 mmol/L (22-30); Chloride 97 mmol/L (98-107); Estimated CRCL calculation 15 ml/min; Estimated Glomerular Filt Rate 17; Glucose 100 mg/dL (65-105); Magnesium 1.7 mg/dL (1.6-2.3); Potassium 4.2 mmol/L (3.4-5.0); Sodium 128 mmol/L (137-145)
--- NOTE | 2021-03-26 07:27 | WPDGIPROGNO ---
Progress Note: A&P Assessment and Plan (1) GI bleed: Code(s): K92.2 - Gastrointestinal hemorrhage, unspecified Status: Acute Assessment and Plan: Patient's GI bleeding appears to have lessened. Hemoglobin remains at baseline 7.7 today. Low blood pressure felt to be from sepsis. Endoscopy not indicated as it would fail to stop bleeding from tumor particularly with low platelets. (2) Encephalopathy: Code(s): G93.40 - Encephalopathy, unspecified Status: Acute (3) Abdominal abscess: Status: Resolved (4) Acute on chronic renal failure: Qualifiers: Acute renal failure type: unspecified Code(s): N17.9 - Acute kidney failure, unspecified; N18.9 - Chronic kidney disease, unspecified Status: Acute (5) Colon cancer: Code(s): C18.9 - Malignant neoplasm of colon, unspecified Status: Acute Assessment and Plan: Residual colon cancer primary appears to be source of recent GI blood loss. This is not amenable to endoscopic therapy at this time. (6) Metastatic colon cancer in female: Onset Date: ~2017 Code(s): C18.9 - Malignant neoplasm of colon, unspecified Status: Chronic Assessment and Plan: Metastatic colon cancer not amenable to surgical resection ordered endoscopic therapy. (7) Thrombocytopenia: Code(s): D69.6 - Thrombocytopenia, unspecified Status: Acute Assessment and Plan: Low platelets have necessitated platelet transfusion. This is only temporary relieved problem. Hopefully this will help minimize bleeding. Subjective Date/time seen: 03/26/21 07:27 Patient remains lethargic. Unable to converse. Barely arousable. Vital signs noted to decrease throughout the night. With the low blood pressure now on Levophed. Bleeding appears to have diminished. Old blood passing per rectum. Review of Systems Review of Systems: ROS unobtainable: Yes unobtainable due to mental status Exam Narrative: Exam Narrative: Patient now on Levophed. HEENT exam reveals no icterus. Lungs reveal few rhonchi. Abdomen is tense. Extremities without cyanosis clubbing or edema. Dark blood noted in stool. Objective Data Vital Signs Vital Signs: Vital Signs - 24 hr 03/25/21 08:00 03/25/21 08:04 03/25/21 10:00 Temperature 96.5 F L Pulse Rate 87 82 Respiratory Rate 20 Blood Pressure 97/63 L Pulse Oximetry 95 95 05/24/21 12:00 03/25/21 12:41 03/25/21 14:00 Temperature 96.5 F L Pulse Rate 89 90 89 Respiratory Rate 12 Blood Pressure 114/68 122/72 Pulse Oximetry 94 03/25/21 16:00 03/25/21 16:05 03/25/21 16:26 Temperature 96.5 F L 96.5 F L 96.5 F L Pulse Rate 80 80 95 Respiratory Rate 12 12 25 H Blood Pressure 110/76 110/76 124/75 Pulse Oximetry 100 95 100 03/25/21 16:32 03/25/21 16:53 03/25/21 16:54 Temperature 96.5 F L 96.6 F L 96.6 F L Pulse Rate 94 93 81 Respiratory Rate 100 H 27 H 25 H Blood Pressure 118/73 122/72 122/72 Pulse Oximetry 12 L 100 100 03/25/21 17:10 03/25/21 17:15 03/25/21 18:00 Temperature 97.0 F L 97.0 F L Pulse Rate 96 91 87 Respiratory Rate 24 H 20 22 H Blood Pressure 128/72 117/84 116/70 Pulse Oximetry 100 100 100 03/25/21 19:52 03/25/21 20:00 03/25/21 20:35 Temperature 96.5 F L Pulse Rate 92 83 90 Respiratory Rate 22 H 22 H Blood Pressure 114/84 121/86 Pulse Oximetry 95 100 03/25/21 22:00 03/26/21 00:00 03/26/21 01:44 Temperature 96.3 F L 95.9 F L Pulse Rate 92 91 85 Respiratory Rate 26 H 22 H Blood Pressure 116/88 126/98 H 98/76 L Pulse Oximetry 94 97 03/26/21 02:00 03/26/21 04:00 03/26/21 05:55 Temperature 96.5 F L 96.8 F L Pulse Rate 86 84 84 Respiratory Rate 22 H 20 Blood Pressure 130/79 124/78 107/72 Pulse Oximetry 98 97 03/26/21 06:00 Temperature 96.3 F L Pulse Rate 84 Respiratory Rate 22 H Blood Pressure 116/68 Pulse Oximetry 97 Intake/Output Intake/Output: Intake & Output 03/23/2103/24
--- NOTE | 2021-03-26 08:00 | PM.IMPN ---
Progress Note: A&P Assessment and Plan (1) Encephalopathy: Code(s): G93.40 - Encephalopathy, unspecified Status: Acute Assessment and Plan: Patient's mental status wax/wanes. Etiology unclear. Brain CT 03/17 showing no acute changes. Better day today. Ammonia level negative. Increase activity level as toelrated Will continue current treatment. Patient is slightly more alert today. (2) Acute respiratory failure: Code(s): J96.00 - Acute respiratory failure, unspecified whether with hypoxia or hypercapnia Status: Acute Assessment and Plan: Patient developed acute hypoxic respiratory failure since admission. Was requiring high flow therapy with face mask at one point but improved with diuresis and abx. Etiology unclear but suspect either PNA and/or pulmonary edema. Serial CXR showing improvement with diuretic therapy. Will continue diuresis. Continue to monitor Labs and x-ray (3) Bacteremia: Code(s): R78.81 - Bacteremia Status: Acute Assessment and Plan: Patient with 1 blood culture growing Bacteroides fragilis and VRE. 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 Source most likely related to the abdominal abscess or possibly urine. Infectious Disease consulted and appreciate their input. Continue IV Zosyn and Linezolid. Prognosis guarded. Monitor CBC. (4) Abdominal abscess: Status: Resolved Assessment and Plan: Initial CT abdomen/pelvis 03/07/21 with 10.2cm fluid collection in right abdomen with percutaneous drain placed 03/10. 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 Treatment of acute issues as noted above. Having regular bowel movements. General surgery managing the drain (5) Pneumonia: Qualifiers: Pneumonia type: due to unspecified organism Laterality: bilateral Code(s): J18.9 - Pneumonia, unspecified organism Status: Acute Assessment and Plan: Imaging was showing chest with bilateral infiltrates which were new. CXR slowly improving felt related to pulmonary edema but can not exclude PNA. Weaned to room air. On IV antibiotics as noted above. Less likely metastatic disease. Continue to monitor. Continue respiratory treatments prn. Repeat chest x-ray in the morning. (6) Acute on chronic renal failure: Qualifiers: Acute renal failure type: unspecified Code(s): N17.9 - Acute kidney failure, unspecified; N18.9 - Chronic kidney disease, unspecified Status: Acute Assessment and Plan: Nephrology and Urology consulted and appreciate input. Nephrostomy tubes remain in place; decreased output from right. Creatinine continues to trend down slowly and today at 3.5. Edematous but improved overall. Continue TPN. (7) Bilateral ureteral obstruction: Code(s): N13.5 - Crossing vessel and stricture of ureter without hydronephrosis Status: Acute Assessment and Plan: Bilateral percutaneous nephrostomy tubes in place. Unclear on urine output from each kidney but have been told smaller volumes from the right is more of a chronic issue. Appreciate help from Urology. Will continue to follow. Instructed RN to flush right nephrostomy tube again today to ensure drainage (8) Anasarca: Code(s): R60.1 - Generalized edema Status: Acute Assessment and Plan: Most likely result of low albumin. Albumin stable at 2.1. Edema improving. Will continue to follow with other treatments. Continue TPN. Dietary following. Monitor electrolytes. (9) Protein calorie malnutrition: Code(s): E46 - Unspecified protein-calorie malnutrition Status: Chronic Assessment and Plan: Poor oral intake. Family wanting patient to become strong enough to resume chemo. This does not seem too realistic if patient unable to eat. TPN started and patient tolerating it well. Continue Megace. Co
--- NOTE | 2021-03-26 08:19 | WPDINTPN ---
Progress Note: A&P Assessment and Plan (1) Shock: Code(s): R57.9 - Shock, unspecified Status: Acute Assessment and Plan: Shock -likely septic shock, hypovolemia, third-spacing -continue Levophed and titrate to maintain arterial pressures > 65-70 mmHg for adequate renal and other end organ perfusion -urine output significantly decreased, creatinine rising, elevated LFTs -continue Yohana Hugger -Her shock appears to be multifactorial. She does have hypoalbuminemia, she was being diuresed so may have intravascular volume depletion, she has been having GI bleed, she has had bacteremia and abdominal abscess, she also has bilateral nephrostomy tubes, she also was getting TPN -She is at high risk of developing new infections. Reviewed Chest x-ray done on 03/25 -blood cultures 03/25 are pending -Patient is on maintenance IV fluids at 50 mL/hour, will start albumin given patient may be third-spacing -continue Bicarb to treat acidosis -patient on his linezolid and Zosyn, infectious disease team is following (2) Hypoxia: Code(s): R09.02 - Hypoxemia Status: Acute Assessment and Plan: ON 2 L nasal cannula but has agonal breathing, discussed with daughter at length regarding intubation and mechanical ventilation, updated her again that patient's kidney functions are declining, she is in septic shock on vasopressors, liver enzymes elevated, daughter stated that the patient at some point had stated that she wanted everything to be done. I did further discuss with the daughter regarding how did the patient wanted to quality of life to be and she stated that the patient would have wanted to be back home, I did tell her that this might not happen just given that she has multiorgan failure. She is supposed to discuss with the family and get back to me regarding intubation Chest x-ray shows 1. Stable opacities of the right lung and improving opacities of the left lung, consistent with pneumonia and/or pulmonary edema. 2. Small right pleural effusion.Chest x-ray shows improving bilateral infiltrates suggestive of pulmonary edema/pneumonia (3) Pneumonia: Qualifiers: Pneumonia type: due to unspecified organism Laterality: bilateral Code(s): J18.9 - Pneumonia, unspecified organism Status: Acute Assessment and Plan: Chest x-ray shows bilateral infiltrates and cardiomegaly -infectious disease following the patient (4) Abdominal abscess: Status: Resolved Assessment and Plan: CT showed 10.2 x 6.9 x 12.7 cm fluid collection in the right abdomen of uncertain etiology, stable from 03/02/21 and new from 02/06/21. Patient received platelets transfusion yesterday. Abscess was drained by interventional radiology and drain was left in place for few days. Eventually drain was removed once the output diminished Continue antibiotics as above (5) Acute on chronic renal failure: Qualifiers: Acute renal failure type: unspecified Code(s): N17.9 - Acute kidney failure, unspecified; N18.9 - Chronic kidney disease, unspecified Status: Acute Assessment and Plan: Acute kidney injury over chronic kidney disease -significantly decreased urine output from nephrostomy tubes, creatinine rising, likely related to septic shock, hypotension, third-spacing, possible venous obstruction Patient is being seen by Nephrology and Urology at this time Nephrostomies tubes are in place with minimal drainage. Urine output has decreased Decreased output from right side, right kidneys atrophic. Dr. Teran following the patient (6) Bilateral ureteral obstruction: Code(s): N13.5 - Crossing vessel and stricture of ureter without hydronephrosis Status: Acute Assessment and Plan: The patient has percutaneous nephrostomies in place.. Dr. Teran with urology following The nephrostomy tubes had been flushed bilaterally on 03/25 (7) Protein calorie malnutrition: Code(s
--- NOTE | 2021-03-26 08:20 | PM.PNNEP ---
Progress Note: A&P Assessment and Plan (1) JOSE (acute kidney injury): Code(s): N17.9 - Acute kidney failure, unspecified Status: Acute Assessment and Plan: suspect due to ATN from infection/abscess/bacteremia urine electrolytes are non-prerenal urine eosinophils negative suspect new infection may be present agree with bicarb fluids and pressor therapy however, overall prognosis is grim (2) Stage 3b chronic kidney disease: Code(s): N18.32 - Chronic kidney disease, stage 3b Status: Chronic Assessment and Plan: due to hypertension and recurrent obstruction. currently has bilateral nephrostomy tubes. baseline creatinine at 1.6 - 2.1mg/dl (3) Hypokalemia: Code(s): E87.6 - Hypokalemia Status: Acute Assessment and Plan: replete as needed due to poor nutrition (4) Bacteremia: Code(s): R78.81 - Bacteremia Status: Acute Assessment and Plan: as noted by blood cultures fepeat cultures pending on Zosyn and linezolid. Infectious Disease on the case. (5) Abdominal abscess: Status: Resolved Assessment and Plan: as noted by imaging s/p drainage and catheter placement by IR (6) Bilateral ureteral obstruction: Code(s): N13.5 - Crossing vessel and stricture of ureter without hydronephrosis Status: Acute Assessment and Plan: s/p percutaneous nephrostomy tubes in place follows with Urology and IR (7) Anasarca: Code(s): R60.1 - Generalized edema Status: Acute Assessment and Plan: secondary to her hypoalbuminemia along with venous and lymphatic obstruction from her malignancy likely to be an ongoing/chronic issue Will continue to follow. Subjective Date/time seen: 03/26/21 08:20 Continues to do poorly -- she remains encephalopathic and remains on vasopressor therapy to mainttain her MAP; urine output has continued to decrease and now is requiring a bear hugger due to her hypothermia; her respiratory rate has decreased as well. Exam Narrative: Exam Narrative: General: chronically ill appearing AA female in NAD Heart: normal S1 and S2; no rub Lungs: decreased at bases and coarse Abdomen: soft, nontender, nondistended, positive bowel sounds Extremities: 2 - 3+ edema in LEs Skin: intact Objective Data Vital Signs Vital Signs: Vital Signs Temp Pulse Resp BP Pulse Ox 03/26/21 08:00 36.0 C L 82 18 111/75 92 03/26/21 06:00 35.7 C L 84 22 H 116/68 97 03/26/21 05:55 84 107/72 03/26/21 04:00 36.0 C L 84 20 124/78 97 03/26/21 02:00 35.8 C L 86 22 H 130/79 98 03/26/21 01:44 85 98/76 L 03/26/21 00:00 35.5 C L 91 22 H 126/98 H 97 03/25/21 22:00 35.7 C L 92 26 H 116/88 94 03/25/21 20:35 90 22 H 100 03/25/21 20:00 35.8 C L 83 22 H 121/86 95 03/25/21 19:52 92 114/84 03/25/21 18:00 87 22 H 116/70 100 03/25/21 17:15 36.1 C L 91 20 117/84 100 03/25/21 17:10 36.1 C L 96 24 H 128/72 100 03/25/21 16:54 35.9 C L 81 25 H 122/72 100 03/25/21 16:53 35.9 C L 93 27 H 122/72 100 03/25/21 16:32 35.8 C L 94 100 H 118/73 12 L 03/25/21 16:26 35.8 C L 95 25 H 124/75 100 03/25/21 16:05 35.8 C L 80 12 110/76 95 03/25/21 16:00 35.8 C L 80 12 110/76 100 03/25/21 14:00 89 03/25/21 12:41 90 122/72 03/25/21 12:00 35.8 C L 89 12 114/68 94 Intake/Output Intake/Output: Intake & Output 03/23/21 03/24/21 03/25/21 03/26/21 23:59 23:59 23:59 23:59 Intake Total 3318.9 3375 3351.7 750 Output Total 650 310 100 50 Balance 2668.9 3065 3251.7 700 Meds/Results Medications: Active Medications Generic Name Dose Route Start Last Admin Trade Name Dwaine PRN Reason Stop Dose Admin Acetaminophen 650 mg 03/06/21 20:24 03/18/21 21:13 Acetaminophen 325 Mg Tablet PO 650 mg Q4H PRN Administration Pain Rated 4-6 Artificial Tears 1 drop 03/06/21
[2021-03-26] MEDS: SILVERGEL (ELTA) 45 ML 1 APPLIC TOPICAL (08:32)
[2021-03-26] MEDS: PANTOPRAZOLE SODIUM IV 40 MG VIAL IV PUSH ×2 (08:32→20:39)
[2021-03-26] MEDS: KETOROLAC 0.5% OP SOLN 5 ML BOTTLE 1 DROP RIGHT EYE (08:32)
[2021-03-26 08:48] LABS: Glucose Point of Care 103 mg/dl (65-105)
[2021-03-26] MEDS: LINEZOLID 600 MG/300 ML 600 MG/300 ML SOLN 300 MG IVPB ×2 (08:53→20:38)
[2021-03-26] MEDS: ALBUMIN HUMAN 25% 12.5 GM/50ML 50 ML IVPB ×3 (09:42→20:39)
[2021-03-26 09:58] LABS: Ammonia < 9 umol/L (9-30)
--- NOTE | 2021-03-26 10:14 | PC.NURSE ---
Report given to ROHINI Redd
--- NOTE | 2021-03-26 10:47 | PCDIET ---
Nutrition Follow-Up Complete: Nutrition Diagnosis: Increased protein needs related to pressure ulcer as evidence by comprehensive wound assessment and needs of 94-110g of protein daily for wound healing Nutrition Goal: Patient to meet estimated nutritional needs. Goal not met. Clinimix remains on hold. Significant decrease in urine output noted. Significant LE swelling reported. MD discussing plan of care with family today, as overall condition continues to deteriorate. If aggressive therapy is continued, recommend resuming Clinimix at lower rate or attempting feeding tube placement (which patient/family previously refused). Last recorded weight is 87 kg which is increased from last review. +I/O. Bowel Motility: Bloody stools documented on 03/25/21. Labs Reviewed: WBC (14.0), Hgb (7.7), Hct (22.2), Glu (100), BUN (82), Cr (3.3), Na (128), Alb (2.4) Meds Noted: Albumin, Bumex, D5LR at 50mL/hr, Novolog, Solu Cortef, Zyvox, Protonix, Zosyn Additional Notes: No change in skin documented. Will continue to monitor with same goal. Nutrition Monitoring and Evaluation: Follow up in 3 days.
[2021-03-26] MEDS: NOREPINEPHRINE 8 MG/D5W 250 ML 8 MG/250 ML BAG 18.75 MG IV CONT (12:00)
[2021-03-26 12:29] LABS: Glucose Point of Care 122 mg/dl (65-105)
[2021-03-26 15:40] LABS: Triglycerides 115 mg/dL (<150)
--- NOTE | 2021-03-26 16:07 | PM.EVENT ---
Event Note Event Note Event Note: Discussed with POSean Miller, wing Ravin Gus in the conference room along with other children on the phone. I updated them with patient's condition, I discussed with them at length that patient is in septic shock, with acute kidney injury, elevated liver enzymes, anemia, thrombocytopenia which could be possibly related to bone marrow suppression. Patient also has a GI bleed requiring products, colon cancer with Mets in the abdomen. I also explained to them about anasarca and diffuse swelling. I discussed with them that she is encephalopathic due to multiple reasons. 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 Patient is only breathing 6-8 times a minute and using accessory muscles with sometimes agonal breathing. Given multiple organ failure or heading that way I updated them with that her mortality rate is significantly higher. I had also spoken to Dr. Arango the oncologist early this afternoon, he stated that the patient is not going to be a candidate for chemotherapy and she is on immunotherapy which is not working of for her and he was supposed to give the POA a call and discuss with her. I also updated the family regarding my conversation that I had with Dr. Arango. I also discussed with them that if I place the patient on a ventilator he may most likely require a tracheostomy and a feeding tube, given her severe weakness and malnutrition. I did discuss with them the possibility of an LTAC also. After listening to everything that I had to say, the family stated that data were to because the feet is very strong and that God is going to help her and she is going to go back home. They have a coating the Bible, and stated that the physicians are anointed by God. They requested that we put her on a ventilator dialyze her if needed, feeding tube if necessary. Patient is a full code in case she has a cardiac arrest. I talk to members of the family in the room at the time to show them her mental status, anasarca, swelling on the lower extremity and upper extremities. After which I did successfully intubated and placed on a mechanical ventilator, intubation was uneventful. Updated the family and will continue to updated them on a regular basis
[2021-03-26] MEDS: MIDAZOLAM 100MG/NS 100ML(*CRX) 100 MG/100 ML BAG IV CONT (16:12)
[2021-03-26] MEDS: RAPID SEQUENCE INTUBATION KIT 1 EACH (16:13)
--- NOTE | 2021-03-26 16:16 | WPDPROCEDUR ---
Procedures Intubation Intubation Date: 03/26/21 Intubation Time: 16:02 A pre-procedural Time-Out was completed immediately before starting the procedure and confirmed: Patient Identification, Site, Procedure, Patient Position and the Availability of Requisite Equipment: Yes Sedative: etomidate Laryngoscope: fiber optic video scope ET tube size: 7.5 Tube secured depth (cm): 23 Tube secured location: lips Tube placement confirmation: visualized tube passing through cords, equal breath sounds bilaterally, no breath sounds over epigastrium and confirmation by capnometry Patient tolerated procedure: well and no complications Intubation complications: none
[2021-03-26] MEDS: DEXTROSE 5%/LACTATED RINGERS 1,000 ML 50 ML IV CONT (16:24)
[2021-03-26 16:38] LABS: Glucose Point of Care 114 mg/dl (65-105)
[2021-03-26 17:16] LABS: Alveolar/Arterial O2 Gradient 139.7 mmHg; Base Excess ABG -16.4 mEq/l (+/-2.0); Fractional Inspired Oxygen 80 %; HCO3 ABG 10.2 mEq/l (22.0-26.0); Oxygen Content ABG 12.8 %vol (16.0-22.0); Oxygen Saturation ABG 99.8 % (95.0-100.0); Oxyhemoglobin 97.7 % THb (90.0-100.0); PCO2 ABG 26.9 mmHg (35.0-45.0); PO2 ABG 402.5 mmHg (80.0-100.0); PO2 FiO2 Ratio Arterial Blood 5.03 %; Total Hemoglobin 8.5 g/dL (12.0-18.0)
[2021-03-26 17:18] LABS: Arterial Blood Gas Vent Mode CMV; Arterial Blood Gas Ventilator rate 20 /MIN; Device VENTILATOR; Modified Allen's Test Pass; Site Drawn RIGHT RADIAL; pH ABG 7.197 (7.350-7.450)
[2021-03-26 17:19] LABS: Arterial Blood Gas PEEP 5 cmH2O; Arterial Blood Gas Tidal Volume 350 ml
[2021-03-26] MEDS: SODIUM BICARBONATE 8.4% 50 MEQ/50 ML SYRINGE 100 MEQ IV PUSH (17:50)
[2021-03-26] MEDS: SODIUM BICARBONATE 8.4% 150 MEQ in DEXTROSE 5% 1,000 ML 950 ML 50 ML IV CONT (18:34)
[2021-03-26] MEDS: NOREPINEPHRINE 8 MG/D5W 250 ML 8 MG/250 ML BAG 24.38 MG IV CONT (20:38)
[2021-03-26 20:49] LABS: Glucose Point of Care 102 mg/dl (65-105)
[2021-03-27] VITALS (46 sets, daily range): BP systolic 81–145; BP diastolic 46–92; PULSE 81–102; RESP 20–26; TEMP 36.1–37.2; O2SAT 94–100
[2021-03-27 00:27] LABS: Glucose Point of Care 113 mg/dl (65-105)
[2021-03-27] MEDS: ALBUMIN HUMAN 25% 12.5 GM/50ML 50 ML IVPB ×4 (04:40→23:22)
[2021-03-27 04:41] LABS: Alveolar/Arterial O2 Gradient 68.3 mmHg; Base Excess ABG -16.3 mEq/l (+/-2.0); Carboxyhemoglobin 0.2 % THb (0-2.0); Fractional Inspired Oxygen 35 %; HCO3 ABG 10.6 mEq/l (22.0-26.0); Methemoglobin ABG 0.5 %THb (0-1.5); Oxygen Content ABG 11.7 %vol (16.0-22.0); Oxygen Saturation ABG 98.4 % (95.0-100.0); PCO2 ABG 28.7 mmHg (35.0-45.0); PO2 ABG 147.9 mmHg (80.0-100.0); PO2 FiO2 Ratio Arterial Blood 4.23 %; Reduced Hemoglobin 2.3 %THb (0-5.0); Total Hemoglobin 8.3 g/dL (12.0-18.0)
[2021-03-27] MEDS: HYDROCORTISONE SODIUM SUCCINATE 100 MG/2 ML VIAL IV PUSH ×3 (04:41→21:08)
[2021-03-27] MEDS: CENTRAL LINE FLUSH 10 ML IV PUSH ×3 (04:41→21:08)
[2021-03-27 04:42] LABS: Site Drawn LEFT RADIAL; pH ABG 7.185 (7.350-7.450)
[2021-03-27 04:43] LABS: Arterial Blood Gas PEEP 5 cmH2O; Arterial Blood Gas Tidal Volume 350 ml; Arterial Blood Gas Vent Mode CMV; Arterial Blood Gas Ventilator rate 24 /MIN; Device VENTILATOR; Modified Allen's Test Pass
[2021-03-27 04:51] LABS: Hematocrit 21.4 % (37.0-47.0); Hemoglobin 7.3 g/dL (12.0-15.0); Immature Platelet Fraction Pct 3.6 % (0.9-11.2); Mean Corpuscular HGB Conc 34.1 g/dl (32-36); Mean Corpuscular Hemoglobin 28.5 pg (26-34); Mean Corpuscular Volume 83.6 fl (80-100); Red Blood Count 2.56 M/mm3 (4.2-5.4); Red Cell Distribution Width 18.6 % (11.5-14.5); White Blood Count 10.4 K/mm3 (4.5-10.0)
[2021-03-27 05:10] LABS: Platelet Count Result 11 k/mm3 (150-375)
[2021-03-27 05:27] LABS: Albumin Level 2.5 g/dL (3.5-5.1); Alkaline Phosphatase 95 U/L (38-126); Anion Gap 22 mmol/L (8-16); Aspartate Amino Transferase 48 U/L (14-36); Bilirubin,Total 1.9 mg/dL (0.2-1.3); Blood Urea Nitrogen 85 mg/dL (7-17); Calcium 7.6 mg/dL (8.4-10.2); Carbon Dioxide 11 mmol/L (22-30); Chloride 94 mmol/L (98-107); Glucose 95 mg/dL (65-105); Magnesium 1.7 mg/dL (1.6-2.3); Potassium 4.7 mmol/L (3.4-5.0); Sodium 127 mmol/L (137-145)
[2021-03-27 05:39] LABS: Alanine Aminotransferase 63 U/L (4-35); Estimated CRCL calculation 16 ml/min; Estimated Glomerular Filt Rate 15
[2021-03-27 05:39] LABS: Lactic Acid Reflex 10.5 mmol/L (0.7-2.1)
[2021-03-27] MEDS: SODIUM BICARBONATE 8.4% 50 MEQ/50 ML SYRINGE 100 MEQ IV PUSH (05:39)
[2021-03-27 08:17] LABS: Reflex Lactic Acid Yes or No Add Lactic
[2021-03-27] MEDS: PANTOPRAZOLE SODIUM IV 40 MG VIAL IV PUSH ×2 (09:14→20:52)
[2021-03-27] MEDS: KETOROLAC 0.5% OP SOLN 5 ML BOTTLE 1 DROP RIGHT EYE (09:14)
[2021-03-27] MEDS: TOLNAFTATE 1% POWDER 45 GM BTL 1 APPLIC TOPICAL ×2 (09:15→20:52)
[2021-03-27] MEDS: SILVERGEL (ELTA) 45 ML 1 APPLIC TOPICAL (09:16)
[2021-03-27] MEDS: SCOPOLAMINE 1.5 MG PATCH TRANSDERM (09:16)
[2021-03-27] MEDS: LINEZOLID 600 MG/300 ML 600 MG/300 ML SOLN 300 MG IVPB (09:20)
[2021-03-27] MEDS: MICAFUNGIN SODIUM 100 MG in SODIUM CHLORIDE 0.9% IV 100 ML IVPB (09:25)
[2021-03-27 09:32] LABS: Mean Platelet Volume 10.1 fl (7.4-10.4)
[2021-03-27] MEDS: SODIUM BICARBONATE TAB 650 MG TABLET 1300 MG PO ×3 (09:32→16:13)
[2021-03-27 09:40] LABS: Glucose Point of Care 74 mg/dl (65-105)
[2021-03-27 09:44] LABS: Platelet Count Result 7 k/mm3 (150-375)
[2021-03-27 09:47] LABS: INR 1.6; Prothrombin Time 19.4 Seconds (11.1-14.7)
[2021-03-27 09:48] LABS: Partial Thromboplastin Time 41.7 SECONDS (22.3-36.8)
[2021-03-27 09:50] LABS: D Dimer 3.29 ug/mL (<0.48)
--- NOTE | 2021-03-27 09:55 | WPDINTPN ---
Progress Note: A&P Assessment and Plan (1) Acute respiratory failure: Code(s): J96.00 - Acute respiratory failure, unspecified whether with hypoxia or hypercapnia Status: Acute Assessment and Plan: Acute respiratory failure likely related to metabolic acidosis, septic shock, acute kidney injury, volume overload congestive heart failure -patient successfully intubated on 03/26/2021 a lengthy discussion with the family who requested continuing with all medical modalities to keep the patient alive. -x-ray reviewed, currently on 35% FiO2, peep of 5 -pH of 7.18, likely related to severe metabolic acidosis secondary to lactic acidosis, septic shock, uremia -continue bronchodilators (2) Shock: Code(s): R57.9 - Shock, unspecified Status: Acute Assessment and Plan: Shock -likely septic shock, hypovolemia, third-spacing, malnourishment, hypoalbuminemia -continue Levophed and titrate to maintain arterial pressures >70 mmHg for adequate renal and other end organ perfusion -urine output significantly decreased, creatinine rising -uremia -LFTs improving -hypothermic: continue Yohana Hugger -03/25/2021:blood cultures growing gustavo t 2/2 bottles, discussed with Dr. Canseco -infectious disease. The fungemia could be related to Port-A-Cath versus abdominal abscess. Infectious disease doctor stated if it is from the Port-A-Cath may not be resolved with medical treatment/antifungals. - CT scan abd/pelvis shows a left anti abdomen abscess with fluid collection 9.8 x 2.3 x 5.4 cm -Patient is on Bicarb infusion at 50 mL/hour, Also on albumin given patient may be third-spacing -continue Bicarb to treat acidosis -12/28 linezolid and Zosyn discontinued by infectious disease (3) Pneumonia: Qualifiers: Laterality: bilateral Pneumonia type: due to unspecified organism Code(s): J18.9 - Pneumonia, unspecified organism Status: Acute Assessment and Plan: Chest x-ray shows bilateral infiltrates and cardiomegaly -infectious disease following the patient (4) Abdominal abscess: Status: Resolved Assessment and Plan: 03/27/[address] scan of the abdomen and pelvis 1. 9.8 x 2.3 x 5.4 cm fluid collection in left anterior abdomen, which may be an abscess. 2. Stable peritoneal mass anterior to the rectum on the right, consistent with metastatic disease. 3. Moderate-sized right and small left pleural effusions. 4. Groundglass opacities in left lung upper lobe, consistent with atelectasis versus inflammation or edema. 5. Gallbladder distention, which may be secondary to fasting. Acalculus cholecystitis cannot be excluded. 03/07/21: CT showed 10.2 x 6.9 x 12.7 cm fluid collection in the right abdomen of uncertain etiology, stable from 03/02/21 and new from 02/06/21. Patient received platelets transfusion yesterday. Abscess was drained by interventional radiology and drain was left in place for few days. Eventually drain was removed once the output diminished Continue antibiotics as above (5) Acute on chronic renal failure: Qualifiers: Acute renal failure type: unspecified Code(s): N17.9 - Acute kidney failure, unspecified; N18.9 - Chronic kidney disease, unspecified Status: Acute Assessment and Plan: Acute kidney injury over chronic kidney disease -significantly decreased urine output from nephrostomy tubes, creatinine rising, likely related to septic shock, hypotension, third-spacing, possible venous obstruction Patient is being seen by Nephrology and Urology at this time Nephrostomies tubes are in place with almost no urine output Decreased output from right side, right kidneys atrophic. Dr. Teran following the patient Bedside RN has flush the nephrostomy tubes -patient likely requires dialysis given refractory metabolic acidosis, volume overload. Discuss with Nephrology, agree with dialysis. -surgery consulted for dialysis catheter placement under fluoroscopy
[2021-03-27 10:09] LABS: Fibrinogen 205 mg/dl (215-510)
[2021-03-27 10:09] LABS: Magnesium 1.8 mg/dL (1.6-2.3)
[2021-03-27 10:27] LABS: Lactic Acid 12.1 mmol/L (0.7-2.1)
--- NOTE | 2021-03-27 10:39 | PCDIET ---
ICU Rounding Note: Patient now intubated. May require line placement later today and on increasing doses of pressors. Discussed with MD - possible plan for enteral feeding tomorrow if more stable. Last recorded weight is 90.1kg which is increased from last review. +I/O. 130mL urine output documented on 03/26/21. Bowel Motility: Last documented BM on 03/24/21 x 3. Labs Reviewed: WBC (10.4), Hgb (7.3), Hct (21.4), BUN (85), Cr (3.7), Na (127), Alb (2.5), Don Ca (8.8), Lactic Acid (10.5) Meds Noted: Solu Cortef, Levophed, Protonix, Novolog, Versed, Zosyn, Zyvox, Micafungin, Albumin, D5/150mEq Sodium Bicarbonate at 50mL/hr Additional Notes: Coccyx and abdomen with open areas. Following daily in ICU rounds. Assessing/reassessing every 3 days.
--- NOTE | 2021-03-27 10:43 | WPDINFPN2 ---
Progress Note: A&P Assessment and Plan (1) Bacteremia: Code(s): R78.81 - Bacteremia Status: Acute Assessment and Plan: 1. Polymicrobial bacteremia with infection, source infected tumor masses vs intra-abdominal abscess , microbiologic cure after 14 days antibacterials. 2. Metastatic colon cancer 3. Bilateral N tubes, not source of her bacteremia nor her invasive infection 4. PCN intolerance, not hypersensitivity reaction 5. Fungal BSI with infection, Port is very likely source, with intrabdominal source also considered REC Micafungin #1 and agree. In ideal circumstances, I would recommend prompt removal of the Port. But doing so is relatively contraindicated in this patient (e.g., thrombocytopenia). In the intermediate to mcc, antifungal therapy is futile and the port infection is medically incurable. Thus I think she is terminal and I recommend conversion to palliative care. Discussed. No family at bedside. Subjective Date/time seen: 03/27/21 10:43 Interval history: events noted. Sedated and intubated Exam Narrative: Exam Narrative: afebrile, on norepi with borderline MAP Const: General: no acute distress Neck: Neck: supple Resp: Effort & Inspection: normal respiratory effort Auscultation: clear to auscultation bilaterally and diminished lung sounds Cardio: Rate: regular rate Rhythm: regular rhythm Heart sounds: no murmurs GI: Inspection: non-distended GI Palp: Yes Firmness to palpation present (GI) and No Tenderness to palpation present (GI) Percussion: Yes dullness to percussion Urinary Catheter: Urinary Catheter: patent and draining and urine clear Skin: General skin exam: normal color and no rashes or lesions noted Objective Data Vital Signs Vital Signs: Vital Signs - 24 hr 03/26/21 12:00 03/26/21 14:00 03/26/21 15:00 Temperature 35.9 C L 35.9 C L Pulse Rate 78 81 Respiratory Rate 14 17 Blood Pressure 100/70 118/77 107/72 Pulse Oximetry 96 99 03/26/21 15:48 03/26/21 16:00 03/26/21 16:12 Temperature 36.5 C Pulse Rate 88 84 Respiratory Rate 20 22 H Blood Pressure 80/56 L 99/71 L Pulse Oximetry 96 03/26/21 16:15 03/26/21 16:32 03/26/21 17:01 Temperature Pulse Rate 83 Respiratory Rate Blood Pressure 86/57 L 97/67 L Pulse Oximetry 95 03/26/21 18:00 03/26/21 18:10 03/26/21 19:50 Temperature Pulse Rate 82 87 Respiratory Rate 18 Blood Pressure 92/58 L 92/58 L Pulse Oximetry 100 100 03/26/21 20:00 03/26/21 20:32 03/26/21 20:45 Temperature 36.0 C L Pulse Rate 89 Respiratory Rate 20 Blood Pressure 135/55 L 146/94 H Pulse Oximetry 93 100 03/26/21 22:00 03/26/21 22:37 03/26/21 23:09 Temperature 36.7 C Pulse Rate 90 90 89 Respiratory Rate 20 Blood Pressure 130/85 130/85 Pulse Oximetry 100 100 03/27/21 00:00 03/27/21 00:23 03/27/21 02:00 Temperature 36.1 C L 36.1 C L Pulse Rate 90 89 90 Respiratory Rate 20 25 H Blood Pressure 134/78 145/92 H 131/86 Pulse Oximetry 100 100 03/27/21 02:25 03/27/21 03:20 03/27/21 04:00 Temperature 36.1 C L Pulse Rate 94 101 H Respiratory Rate 20 Blood Pressure 104/55 L Pulse Oximetry 100 100 100 03/27/21 04:40 03/27/21 05:13 03/27/21 06:00 Temperature 37.2 C Pulse Rate 101 H 102 H 88 Respiratory Rate 20 Blood Pressure 129/80 106/67 Pulse Oximetry 100 99 03/27/21 07:50 03/27/21 08:00 03/27/21 08:25 Temperature 36.6 C Pulse Rate 88 88 89 Respiratory Rate 24 H Blood Pressure 111/74 Pulse Oximetry 100 100 94 03/27/21 09:00 03/27/21 09:15 03/27/21 10:40 Temperature 36.5 C Pulse Rate 87 Respiratory Rate 24 H Blood Pressure 94/56 L 88/47 L 100/53 L Pulse Oximetry 100 Intake/Output Intake/Output: Intake & Output 03/24/21 03/25/21 03/26/21 03/27/21 23:59 23:59 23:59 23:59 Intake Total 3375 3351.7 2830.1 50 Output Total 310 100 230 10 Balance 3065 3251.7 2600.1 40 Meds/Results Medications: Active Medicat
[2021-03-27] MEDS: TUBING, BLOOD PLUM PUMP TUBING 1 EACH XX (10:44)
[2021-03-27] MEDS: SODIUM CHLORIDE 0.9% IV 250 ML 30 ML IV CONT ×2 (10:44→10:45)
[2021-03-27] MEDS: NOREPINEPHRINE 8 MG/D5W 250 ML 8 MG/250 ML BAG 33.75 MG IV CONT (10:46)
--- NOTE | 2021-03-27 11:05 | WPDGIPROGNO ---
Progress Note: A&P Assessment and Plan (1) GI bleed: Code(s): K92.2 - Gastrointestinal hemorrhage, unspecified Status: Acute (2) Encephalopathy: Code(s): G93.40 - Encephalopathy, unspecified Status: Acute (3) Shock: Code(s): R57.9 - Shock, unspecified Status: Acute (4) Acute respiratory failure: Code(s): J96.00 - Acute respiratory failure, unspecified whether with hypoxia or hypercapnia Status: Acute (5) Thrombocytopenia: Code(s): D69.6 - Thrombocytopenia, unspecified Status: Acute (6) Acute on chronic kidney failure: Code(s): N17.9 - Acute kidney failure, unspecified; N18.9 - Chronic kidney disease, unspecified Status: Acute (7) Colon cancer: Qualifiers: Colon location: unspecified part of colon Qualified Code(s): C18.9 - Malignant neoplasm of colon, unspecified Code(s): C18.9 - Malignant neoplasm of colon, unspecified Status: Acute (8) Metastatic colon cancer in female: Onset Date: ~2017 Code(s): C18.9 - Malignant neoplasm of colon, unspecified Status: Chronic Additional Plan Patient's bleeding appears to have diminished. She now is hypotensive because of shock appears to have septic shock. Low platelet count appears to contribute to her recent lower GI bleeding. Family has insisted on aggressive measures. Patient now remains intubated with poor overall prognosis. At the present time would defer endoscopy given the thrombocytopenia and unanticipated benefit because of known colon cancer with the continued bleed blood loss. case discussed with flower shop manager service. Will standby and follow conservatively at this point. Subjective Date/time seen: 03/27/21 11:05 Patient now intubated because of increasing respiratory distress. Unable to add any history. Remains on pressor agents. No active bleeding described by nursing staff. Review of Systems Review of Systems: ROS unobtainable: Yes unobtainable due to endotracheal tube and unobtainable due to mental status Exam Narrative: Exam Narrative: On physical exam lungs reveal bilateral rhonchi. Heart without murmur. Abdomen somewhat tense bowel sounds are present no localized masses. Unable to appreciate any tenderness. Objective Data Vital Signs Vital Signs: Vital Signs - 24 hr 03/26/21 12:00 03/26/21 14:00 03/26/21 15:00 Temperature 96.7 F L 96.6 F L Pulse Rate 78 81 Respiratory Rate 14 17 Blood Pressure 100/70 118/77 107/72 Pulse Oximetry 96 99 03/26/21 15:48 03/26/21 16:00 03/26/21 16:12 Temperature 97.7 F Pulse Rate 88 84 Respiratory Rate 20 22 H Blood Pressure 80/56 L 99/71 L Pulse Oximetry 96 03/26/21 16:15 03/26/21 16:32 03/26/21 17:01 Temperature Pulse Rate 83 Respiratory Rate Blood Pressure 86/57 L 97/67 L Pulse Oximetry 95 03/26/21 18:00 03/26/21 18:10 03/26/21 19:50 Temperature Pulse Rate 82 87 Respiratory Rate 18 Blood Pressure 92/58 L 92/58 L Pulse Oximetry 100 100 03/26/21 20:00 03/26/21 20:32 03/26/21 20:45 Temperature 96.8 F L Pulse Rate 89 Respiratory Rate 20 Blood Pressure 135/55 L 146/94 H Pulse Oximetry 93 100 03/26/21 22:00 03/26/21 22:37 03/26/21 23:09 Temperature 98.0 F Pulse Rate 90 90 89 Respiratory Rate 20 Blood Pressure 130/85 130/85 Pulse Oximetry 100 100 03/27/21 00:00 03/27/21 00:23 03/27/21 02:00 Temperature 97 F L 97.0 F L Pulse Rate 90 89 90 Respiratory Rate 20 25 H Blood Pressure 134/78 145/92 H 131/86 Pulse Oximetry 100 100 03/27/21 02:25 03/27/21 03:20 03/27/21 04:00 Temperature 97.0 F L Pulse Rate 94 101 H Respiratory Rate 20 Blood Pressure 104/55 L Pulse Oximetry 100 100 100 03/27/21 04:40 03/27/21 05:13 03/27/21 06:00 Temperature 99.0 F Pulse Rate 101 H 102 H 88 Respiratory Rate 20 Blood Pressure 129/80 106/67 Pulse Oximetry 100 99 03/27/21 07:50 03/27/21 08:00
--- NOTE | 2021-03-27 11:20 | PM.CNGS ---
Assessment and Plan Assessment and plan (1) Abdominal abscess: Status: Resolved Assessment and Plan: The patient has metastatic colon cancer, as well as metabolic acidosis secondary to severe septic shock with severe thrombocytopenia. We have been asked to see the patient regarding Port-A-Cath removal, dialysis catheter placement, and findings of a possible intra-abdominal abscess on the CT scan (showing a 9.8 x 2.3 x 5.4 cm fluid collection in left anterior abdomen). After discussing the patient's case with Dr. Miller, this patient is contraindicated for any type of surgical intervention or procedure for multiple reasons. Due to the thrombocytopenia and other underlying conditions, any interventional efforts would be futile in attempts to improve overall prognosis. Potential complications would outweigh any short-term benefits. We would recommend continuing with medical management and supportive care. Dr. Miller or myself will call the family to discuss this with them and relay the plan at this point. Thank you for allowing us to see the patient in consultation. (2) Shock: Code(s): R57.9 - Shock, unspecified Status: Acute Assessment and Plan: Severe septic shock, likely multifactorial, with vasopressor requirements and severe metabolic acidosis. Serial lactic acid worsening, up to 12.5 today. Subsequently intubated yesterday evening following a plan of care discussion with the family and Crm Marketing Analyst. The family wants to continue with aggressive treatment and the patient is still a full code. Continue with broad-spectrum IV antibiotics and IV Micafungin, IV Bicarb drip, and medical management. (3) Thrombocytopenia: Code(s): D69.6 - Thrombocytopenia, unspecified Status: Acute Assessment and Plan: Platelets 11,000 this morning and repeated at 7,000. She is receiving 2 units of platelets and 1 unit of FFP, along with having DIC work-up. Spoke with Crm Marketing Analyst after speaking with Dr. Miller. Her severe thrombocytopenia is a significant contraindication for any minor or major surgical procedures. (4) Colon cancer: Qualifiers: Colon location: unspecified part of colon Qualified Code(s): C18.9 - Malignant neoplasm of colon, unspecified Code(s): C18.9 - Malignant neoplasm of colon, unspecified Status: Acute Assessment and Plan: Known recurrent metastatic colon cancer with poor overall prognosis, considering all other acute medical problems. (5) Blood culture positive for Linette species: Code(s): B37.9 - Candidiasis, unspecified Status: Acute Assessment and Plan: Blood cultures from 03/25/21 show growth of linette albicans. ID following and feels source could be Port vs intraabdominal. Crm Marketing Analyst/ID requesting removal of Port-A-Cath due to possible source. Patient is not a candidate for any surgical intervention or procedure due to reasons mentioned above. (6) Acute respiratory failure: Code(s): J96.00 - Acute respiratory failure, unspecified whether with hypoxia or hypercapnia Status: Acute Assessment and Plan: Intubated in ICU. Management per Crm Marketing Analyst. (7) Metabolic acidosis: Code(s): E87.2 - Acidosis Status: Acute Assessment and Plan: Severe metabolic acidosis likely related to severe sepsis. Continue medical management. Now intubated in the ICU. (8) Encephalopathy: Code(s): G93.40 - Encephalopathy, unspecified Status: Acute (9) Anasarca: Code(s): R60.1 - Generalized edema Status: Acute (10) Acute on chronic renal failure: Qualifiers: Acute renal failure type: unspecified Code(s): N17.9 - Acute kidney failure, unspecified; N18.9 - Chronic kidney disease, unspecified Status: Acute Assessment and Plan: Multiorgan failure with uremia. Crm Marketing Analyst and Nephrology have discussed hemodialysis and are requesting dialysis catheter placement. Again, the patient is
--- NOTE | 2021-03-27 11:58 | PM.IMPN ---
Progress Note: A&P Assessment and Plan (1) Encephalopathy: Code(s): G93.40 - Encephalopathy, unspecified Status: Acute Assessment and Plan: Patient's mental status wax/wanes. Multifactorial most likely related to bacteremia underlying diagnosis of cancer renal failure probable pneumonia and pulmonary edema and severe acidosis. (2) Acute respiratory failure: Code(s): J96.00 - Acute respiratory failure, unspecified whether with hypoxia or hypercapnia Status: Acute Assessment and Plan: Patient developed acute hypoxic respiratory failure since admission. Was requiring high flow therapy with face mask problem probably related to pneumonia pulmonary edema (3) Bacteremia: Code(s): R78.81 - Bacteremia Status: Acute Assessment and Plan: Patient with 1 blood culture growing Bacteroides fragilis and VRE. 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 Source most likely related to the abdominal abscess or possibly urine. Infectious Disease consulted and appreciate their input. s/p off Zosyn and Linezolid. Prognosis poor. (4) Abdominal abscess: Status: Resolved Assessment and Plan: Initial CT abdomen/pelvis 03/07/21 with 10.2cm fluid collection in right abdomen with percutaneous drain placed 03/10. 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 General surgery managing the drain (5) Pneumonia: Qualifiers: Pneumonia type: due to unspecified organism Laterality: bilateral Code(s): J18.9 - Pneumonia, unspecified organism Status: Acute Assessment and Plan: Imaging was showing chest with bilateral infiltrates probable combination of pneumonia and pulmonary edema DC antibiotics per ID recommendation Plan for dialysis (6) Acute on chronic renal failure: Qualifiers: Acute renal failure type: unspecified Code(s): N17.9 - Acute kidney failure, unspecified; N18.9 - Chronic kidney disease, unspecified Status: Acute Assessment and Plan: Probable ATN surgery was consulted dialysis catheter placement 03/27/2021 Start dialysis. (7) Bilateral ureteral obstruction: Code(s): N13.5 - Crossing vessel and stricture of ureter without hydronephrosis Status: Acute Assessment and Plan: Bilateral percutaneous nephrostomy tubes in place. Appreciate help from Urology. (8) Anasarca: Code(s): R60.1 - Generalized edema Status: Acute Assessment and Plan: Plan for dialysis (9) Protein calorie malnutrition: Code(s): E46 - Unspecified protein-calorie malnutrition Status: Chronic Assessment and Plan: Poor oral intake. (10) Thrombocytopenia: Code(s): D69.6 - Thrombocytopenia, unspecified Status: Acute Assessment and Plan: Platelet count low at 122K on admission required multiple unit platelet transfusion hematology consult (11) Anemia: Code(s): D64.9 - Anemia, unspecified Status: Acute Assessment and Plan: Hemoglobin 7.9 on admission but dropped to 6.2. Probably related to her malignancy. Most likely acute blood loss anemia multifactorial secondary to GI bleed blood transfusion keep platelets above 20,000 GI follow-up (12) Metastatic colon cancer in female: Onset Date: ~2017 Code(s): C18.9 - Malignant neoplasm of colon, unspecified Status: Chronic Assessment and Plan: Diagnosis with colon cancer in 2015, status post colectomy with colostomy and adjuvant chemotherapy with FOLFOX. Status post hyperthermic intraperitoneal chemotherapy with debulking surgery in 2017 done in [place]. Status post bilateral nephrostomy tube placement in August 2020 due to extrinsic compression of the ureters from a large tumor, found to be recurrent metastatic cancer. Imaging on 12/21/2020 showed a malignant mass in the sigmoid colon
[2021-03-27 12:08] LABS: Glucose Point of Care 83 mg/dl (65-105)
--- NOTE | 2021-03-27 12:18 | P.PNNP_ITS ---
Progress Note: A&P Assessment and Plan (1) JOSE (acute kidney injury): Code(s): N17.9 - Acute kidney failure, unspecified Status: Acute Assessment and Plan: * suspect due to ATN from infection/abscess/bacteremia * urine electrolytes are non-prerenal * urine eosinophils negative * suspect new infection may be present * agree with pressor therapy for * however, overall prognosis is grim -- see discussion below (2) Stage 3b chronic kidney disease: Code(s): N18.32 - Chronic kidney disease, stage 3b Status: Chronic Assessment and Plan: * due to hypertension and recurrent obstruction. * currently has bilateral nephrostomy tubes. * baseline creatinine at 1.6 - 2.1mg/dl (3) Hypokalemia: Code(s): E87.6 - Hypokalemia Status: Acute Assessment and Plan: * replete as needed * due to poor nutrition (4) Bacteremia: Code(s): R78.81 - Bacteremia Status: Acute Assessment and Plan: * as noted by blood cultures * fepeat cultures pending * on Zosyn and linezolid. * Infectious Disease on the case. (5) Abdominal abscess: Status: Resolved Assessment and Plan: * as noted by imaging * s/p drainage and catheter placement by IR * new abscess noted by recent imaging... (6) Bilateral ureteral obstruction: Code(s): N13.5 - Crossing vessel and stricture of ureter without hydronephrosis Status: Acute Assessment and Plan: * s/p percutaneous nephrostomy tubes in place * follows with Urology and IR (7) Anasarca: Code(s): R60.1 - Generalized edema Status: Acute Assessment and Plan: * secondary to her hypoalbuminemia along with venous and lymphatic obstruction from her malignancy * likely to be an ongoing/chronic issue Long and extensive discussion with grand-daughter at bedside regarding patient's clinical condition -- earlier today, I had considered renal replacement therapy/dialysis as an option but her ongoing clinical deterioration as noted by her extremely high pressor requirements along with her lactic acidosis make regular intermittent dialysis along with CRRT life threatening and would likely cause more harm than good; placement of a dialysis catheter would be extremely challenging as she has a high risk of catastrophic bleeding given her persistent thrombocytopenia as well; hence, I do not think she is even a candidate for renal replacement therapy/dialysis in general. Furthermore, dialysis will not likely change her other co-morbidities including fungemia, abdominal abscess, sepsis, respiratory failure, and metastatic colon cancer. Will continue to follow. Subjective Date/time seen: 03/27/21 12:18 The patient has continued to deteriorate in the last 24 hours -- she is now intubated and requiring high dose pressor to maintain her blood pressure; blood cultures are positive for fungus and she is severely acidotic due her profound lactic acidosis; remains on ventilator at the time of my visit -- grand-daughter at bedside and we discussed the situation. Exam Narrative: Exam Narrative: General: chronically ill appearing AA female - intubated and on ventilator Heart: normal S1 and S2; no rub Lungs: decreased at bases and coarse Abdomen: soft, nontender, nondistended, hypoactive bowel sounds Extremities: 2 - 3+ edema in LEs bilaterally Skin: no rash noted Objective Data Vital Signs Vital Signs: Vital Signs Temp Pulse R
--- NOTE | 2021-03-27 12:18 | PM.PNNEP ---
Progress Note: A&P Assessment and Plan (1) JOSE (acute kidney injury): Code(s): N17.9 - Acute kidney failure, unspecified Status: Acute Assessment and Plan: suspect due to ATN from infection/abscess/bacteremia urine electrolytes are non-prerenal urine eosinophils negative suspect new infection may be present agree with pressor therapy for however, overall prognosis is grim -- see discussion below (2) Stage 3b chronic kidney disease: Code(s): N18.32 - Chronic kidney disease, stage 3b Status: Chronic Assessment and Plan: due to hypertension and recurrent obstruction. currently has bilateral nephrostomy tubes. baseline creatinine at 1.6 - 2.1mg/dl (3) Hypokalemia: Code(s): E87.6 - Hypokalemia Status: Acute Assessment and Plan: replete as needed due to poor nutrition (4) Bacteremia: Code(s): R78.81 - Bacteremia Status: Acute Assessment and Plan: as noted by blood cultures fepeat cultures pending on Zosyn and linezolid. Infectious Disease on the case. (5) Abdominal abscess: Status: Resolved Assessment and Plan: as noted by imaging s/p drainage and catheter placement by IR new abscess noted by recent imaging... (6) Bilateral ureteral obstruction: Code(s): N13.5 - Crossing vessel and stricture of ureter without hydronephrosis Status: Acute Assessment and Plan: s/p percutaneous nephrostomy tubes in place follows with Urology and IR (7) Anasarca: Code(s): R60.1 - Generalized edema Status: Acute Assessment and Plan: secondary to her hypoalbuminemia along with venous and lymphatic obstruction from her malignancy likely to be an ongoing/chronic issue Long and extensive discussion with grand-daughter at bedside regarding patient's clinical condition -- earlier today, I had considered renal replacement therapy/dialysis as an option but her ongoing clinical deterioration as noted by her extremely high pressor requirements along with her lactic acidosis make regular intermittent dialysis along with CRRT life threatening and would likely cause more harm than good; placement of a dialysis catheter would be extremely challenging as she has a high risk of catastrophic bleeding given her persistent thrombocytopenia as well; hence, I do not think she is even a candidate for renal replacement therapy/dialysis in general. Furthermore, dialysis will not likely change her other co-morbidities including fungemia, abdominal abscess, sepsis, respiratory failure, and metastatic colon cancer. Will continue to follow. Subjective Date/time seen: 03/27/21 12:18 The patient has continued to deteriorate in the last 24 hours -- she is now intubated and requiring high dose pressor to maintain her blood pressure; blood cultures are positive for fungus and she is severely acidotic due her profound lactic acidosis; remains on ventilator at the time of my visit -- grand-daughter at bedside and we discussed the situation. Exam Narrative: Exam Narrative: General: chronically ill appearing AA female - intubated and on ventilator Heart: normal S1 and S2; no rub Lungs: decreased at bases and coarse Abdomen: soft, nontender, nondistended, hypoactive bowel sounds Extremities: 2 - 3+ edema in LEs bilaterally Skin: no rash noted Objective Data Vital Signs Vital Signs: Vital Signs Temp Pulse Resp BP Pulse Ox 03/27/21 12:00 36.3 C L 88 24 H 106/59 L 100 03/27/21 11:01 36.3 C L 84 24 H 99/59 L 100 03/27/21 10:50 86 95 03/27/21 10:46 96/56 L 03/27/21 10:40 36.5 C 87 24 H 100/53 L 100 03/27/21 10:00 87 24 H 97/56 L 100 03/27/21 09:30 81/46 L 03/27/21 09:15 88/47 L 03/27/21 09:00 94/56 L 03/27/21 08:25 89 94 03/27/21 08:00 36.6 C 88 24 H 111/74 100 03/27/21 07:50 88 100 03/27/21 06:00 37.2 C 88 20 106/67 99 03/27/21
--- NOTE | 2021-03-27 12:50 | WPDONCPN ---
Progress Note: A/P - Additional Plan Metastatic colorectal cancer. CT scan of the chest abdomen and pelvis done today showed stable peritoneal mass anterior to the rectum on the right consistent with metastatic disease along with 9.8 x 2.3 x 5.4 cm abscess in the left anterior abdominal. There was moderate size right and small left pleural effusion. I have a long discussion with patient daughter today. We discussed this imaging standing finding labs and her overall condition. I have informed her regarding her prognosis from metastatic colorectal cancer is not good while she is dealing with multiple issues including respiratory failure, acute renal failure and DIC and sepsis. Her daughter wants to proceed with continuing current management now and not ready for hospice and supportive care. I have also discuss this case with Dr. Angeles today. Acute renal failure. Nephrology input noted. Thrombocytopenia and anemia. Continue supportive platelet transfusion as needed. Acute respiratory failure. Patient is intubated now. Bacteremia and sepsis. Patient has VRE in the urine and blood. She is on antibiotic and antifungal coverage. CT abdomen reviewed. Multifactorial anemia. Continue supportive blood transfusion. - Time Spent With Patient Total time spent is greater than 50% in coordination of care (as documented) at patient's floor/unit and/or counseling patient: 25 - 35 minutes Subjective Interval history: Metastatic colon cancer DIC and sepsis Thrombocytopenia Acute on chronic renal failure Respiratory failure Hypotension Anemia Review of Systems - Review of Systems Patient is intubated and sedated. - Neurologic Reports system reviewed and no additional complaints, except as documented, Reports hearing normal, Reports weakness, Denies confusion, Denies syncope, Denies headache(s), Denies loss of vision, Denies numbness Exam Vital signs: Temp Pulse Resp BP Pulse Ox 36.3 C L 88 24 H 112/66 100 03/27/21 12:00 03/27/21 12:00 03/27/21 12:00 03/27/21 12:35 03/27/21 12:00 Narrative: Patient is intubated and sedated Lungs are clear to auscultation bilaterally Cardiovascular regular rate rhythm no murmurs Abdomen distended Extremities generalized edema PN: Objective Data - Labs CBC & Chem 7: 03/27/21 09:21 03/27/21 04:38 Labs: Laboratory Results - last 24 hr 03/25/21 03/26/21 03/26/21 08:50 15:20 16:27 WBC RBC Hgb Hct MCV MCH MCHC RDW Plt Count MPV % Immature Plt Fraction PT INR APTT Fibrinogen D-Dimer Puncture Site ABG pH ABG pCO2 ABG pO2 ABG PO2/FiO2 Ratio ABG HCO3 ABG O2 Saturation ABG O2 Content ABG Base Excess A-a Gradient Oxyhemoglobin Carboxyhemoglobin Methemoglobin Reduced Hemoglobin Total Hemoglobin O2 Delivery Device O2 Liters/Min Minute Volume Vent Rate Vent Mode FiO2 Tidal Volume PEEP Peak Inspir Pressure Pressure Support Sodium Potassium Chloride Carbon Dioxide Anion Gap BUN Creatinine Estim Creat Clear Calc Estimated GFR Glucose POC Capillary Glucose 114 H Lactic Acid Calcium Magnesium Total Bilirubin AST ALT Alkaline Phosphatase Total Protein Albumin Triglycerides 115 Blood Type O Positive 03/26/21 03/26/21 03/27/21 17:12 20:47 00:25 WBC RBC Hgb Hct MCV MCH MCHC RDW Plt Count MPV % Immature Plt Fraction PT INR APTT Fibrinogen D-Dimer Puncture Site Right radial ABG pH 7.197 L* ABG pCO2 26.9 L ABG pO2 402.5 H ABG PO2/FiO2 Ratio 5.03 ABG HCO3 10.2 L ABG O2 Saturation 99.8 ABG O2 Content 12.8 L ABG Base Excess -16.4 A-a Gradient 139.7 Oxyhemoglobin 97.7 Carboxyhemoglobin Methemoglobin Reduced Hemoglobin Total Hem
[2021-03-27] MEDS: IPRATROPIUM BR 0.02% INH SOLN 0.5 MG/2.5 ML VIAL INHALATION ×2 (15:24→19:44)
[2021-03-27] MEDS: ALBUTEROL SULFATE NEB 2.5 MG/0.5 ML INH INHALATION ×2 (15:24→19:44)
[2021-03-27 16:03] LABS: Glucose Point of Care 72 mg/dl (65-105)
[2021-03-27] MEDS: MIDAZOLAM 100MG/NS 100ML(*CRX) 100 MG/100 ML BAG IV CONT (16:06)
[2021-03-27] MEDS: SODIUM BICARBONATE 8.4% 150 MEQ in DEXTROSE 5% 1,000 ML 950 ML 50 ML IV CONT (17:49)
[2021-03-27] MEDS: NOREPINEPHRINE 8 MG/D5W 250 ML 8 MG/250 ML BAG 37.5 MG IV CONT (17:54)
[2021-03-27] MEDS: DEXTROSE 50% 25 GM/50 ML SYRINGE IV PUSH ×2 (20:41→21:07)
[2021-03-27 21:04] LABS: Glucose Point of Care 50 mg/dl (65-105)
[2021-03-27 21:04] LABS: Glucose Point of Care 36 mg/dl (65-105)
[2021-03-27 21:40] LABS: Glucose Point of Care 22 mg/dl (65-105)
[2021-03-27] MEDS: VASOPRESSIN INJ 100 UNITS in DEXTROSE 5% 95 ML IV CONT (21:49)
[2021-03-27] MEDS: GLUCAGON FOR INJ 1 MG VIAL IM (21:50)
[2021-03-27 22:25] LABS: Platelet Ab,Indirect (IgA) NEGATIVE (NEGATIVE); Platelet Ab,Indirect (IgG) NEGATIVE (NEGATIVE); Platelet Ab,Indirect (IgM) NEGATIVE (NEGATIVE)
[2021-03-27 23:19] LABS: Glucose Point of Care 61 mg/dl (65-105)
[2021-03-28] VITALS (49 sets, daily range): BP systolic 93–126; BP diastolic 54–81; PULSE 68–100; RESP 20–28; TEMP 35.9–36.4; O2SAT 94–100
[2021-03-28] MEDS: NOREPINEPHRINE 8 MG/D5W 250 ML 8 MG/250 ML BAG 45 MG IV CONT (00:21)
[2021-03-28 00:32] LABS: Glucose Point of Care 69 mg/dl (65-105)
[2021-03-28] MEDS: ALBUTEROL SULFATE NEB 2.5 MG/0.5 ML INH INHALATION ×4 (01:20→20:05)
[2021-03-28] MEDS: IPRATROPIUM BR 0.02% INH SOLN 0.5 MG/2.5 ML VIAL INHALATION ×4 (01:20→20:05)
[2021-03-28 04:45] LABS: Glucose Point of Care 80 mg/dl (65-105)
[2021-03-28 04:53] LABS: Alveolar/Arterial O2 Gradient 70.1 mmHg; Base Excess ABG -24.8 mEq/l (+/-2.0); Carboxyhemoglobin 0.3 % THb (0-2.0); Fractional Inspired Oxygen 35 %; HCO3 ABG 4.9 mEq/l (22.0-26.0); Methemoglobin ABG 0.7 %THb (0-1.5); Oxygen Content ABG 9.5 %vol (16.0-22.0); Oxygen Saturation ABG 97.7 % (95.0-100.0); Oxyhemoglobin 96.8 % THb (90.0-100.0); PO2 ABG 154.1 mmHg (80.0-100.0); Reduced Hemoglobin 2.2 %THb (0-5.0)
[2021-03-28 04:55] LABS: PCO2 ABG 21.8 mmHg (35.0-45.0); pH ABG 6.968 (7.350-7.450)
[2021-03-28 04:56] LABS: Arterial Blood Gas Vent Mode CMV; Arterial Blood Gas Ventilator rate 24 /MIN; Device VENTILATOR; Modified Allen's Test Unable to perform; Site Drawn RIGHT RADIAL; Total Hemoglobin 6.7 g/dL (12.0-18.0)
[2021-03-28 04:57] LABS: Arterial Blood Gas PEEP 5 cmH2O; Arterial Blood Gas Tidal Volume 400 ml
[2021-03-28 05:17] LABS: Mean Corpuscular HGB Conc 31.1 g/dl (32-36); Mean Corpuscular Hemoglobin 28.5 pg (26-34); Mean Corpuscular Volume 91.6 fl (80-100); Mean Platelet Volume 10.8 fl (7.4-10.4); Platelet Count Result 46 k/mm3 (150-375); Red Blood Count 2.14 M/mm3 (4.2-5.4); Red Cell Distribution Width 20.1 % (11.5-14.5); White Blood Count 18.2 K/mm3 (4.5-10.0)
[2021-03-28 05:28] LABS: Hemoglobin 6.1 g/dL (12.0-15.0)
[2021-03-28 05:29] LABS: Hematocrit 19.6 % (37.0-47.0)
[2021-03-28 05:43] LABS: Alanine Aminotransferase 131 U/L (4-35); Albumin Level 3.1 g/dL (3.5-5.1); Alkaline Phosphatase 72 U/L (38-126); Anion Gap 32 mmol/L (8-16); Aspartate Amino Transferase 421 U/L (14-36); Bilirubin,Total 3.6 mg/dL (0.2-1.3); Blood Urea Nitrogen 82 mg/dL (7-17); Calcium 7.9 mg/dL (8.4-10.2); Carbon Dioxide 6 mmol/L (22-30); Chloride 90 mmol/L (98-107); Estimated CRCL calculation 15 ml/min; Estimated Glomerular Filt Rate 14; Glucose 128 mg/dL (65-105); Magnesium 1.8 mg/dL (1.6-2.3); Potassium 4.9 mmol/L (3.4-5.0); Sodium 128 mmol/L (137-145)
[2021-03-28 05:51] LABS: Lactic Acid Reflex 19.3 mmol/L (0.7-2.1)
[2021-03-28] MEDS: SODIUM BICARBONATE 8.4% 50 MEQ/50 ML SYRINGE 150 MEQ IV PUSH (05:54)
[2021-03-28] MEDS: ALBUMIN HUMAN 25% 12.5 GM/50ML 50 ML IVPB ×2 (06:00→12:21)
[2021-03-28] MEDS: HYDROCORTISONE SODIUM SUCCINATE 100 MG/2 ML VIAL IV PUSH ×3 (06:01→21:00)
[2021-03-28] MEDS: CENTRAL LINE FLUSH 10 ML IV PUSH ×3 (06:01→21:00)
[2021-03-28] MEDS: NOREPINEPHRINE 8 MG/D5W 250 ML 8 MG/250 ML BAG 41.25 MG IV CONT (06:36)
[2021-03-28 08:09] LABS: Reflex Lactic Acid Yes or No Add Lactic
--- NOTE | 2021-03-28 08:11 | WPDGIPROGNO ---
Progress Note: A&P Assessment and Plan (1) Acute respiratory failure: Code(s): J96.00 - Acute respiratory failure, unspecified whether with hypoxia or hypercapnia Status: Acute (2) GI bleed: Code(s): K92.2 - Gastrointestinal hemorrhage, unspecified Status: Acute (3) Encephalopathy: Code(s): G93.40 - Encephalopathy, unspecified Status: Acute (4) Metastatic colon cancer in female: Onset Date: ~2017 Code(s): C18.9 - Malignant neoplasm of colon, unspecified Status: Chronic (5) Colon cancer: Qualifiers: Colon location: unspecified part of colon Qualified Code(s): C18.9 - Malignant neoplasm of colon, unspecified Code(s): C18.9 - Malignant neoplasm of colon, unspecified Status: Acute (6) Acute renal injury: Code(s): N17.9 - Acute kidney failure, unspecified Status: Acute (7) Thrombocytopenia: Code(s): D69.6 - Thrombocytopenia, unspecified Status: Acute (8) Shock: Code(s): R57.9 - Shock, unspecified Status: Acute Additional Plan patient with residual colon cancer unable to be resected widely 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 CT scan yesterday confirms large abscess persists. Currently patient appears to have septic shock. Remains on pressor agents. Patient previously unable to answer questions because of encephalopathy now intubated. No significant bleeding in the GI tract per nursing service. Hemoglobin only slightly lower than baseline today. Family wishes to continue aggressive measures. At this time would defer endoscopy as this is likely to worsen her condition. No active bleeding reported undoubtedly bleeding aggravated by thrombocytopenia. Residual cancer strongly suspected as site blood loss is not amenable to cautery. Peg tube would be difficult with intra-abdominal masses and thrombocytopenia. Would transfuse as necessary at this point. Patient appears to be failing from my perspective. Subjective Date/time seen: 03/28/21 08:12 Patient remains on the ventilator unresponsive. Unable to add any useful history. No additional GI bleeding per nursing staff. Review of Systems Review of Systems: ROS unobtainable: Yes unobtainable due to endotracheal tube and unobtainable due to medical condition Exam Narrative: Exam Narrative: Physical exam reveals patient be on the ventilator. He she is on pressors. Lungs reveal bilateral rhonchi. Heart without murmur. Abdomen is somewhat tense. Bowel sounds are present no discrete masses evident. Objective Data Vital Signs Vital Signs: Vital Signs - 24 hr 03/27/21 08:25 03/27/21 09:00 03/27/21 09:15 Temperature Pulse Rate 89 Respiratory Rate Blood Pressure 94/56 L 88/47 L Pulse Oximetry 94 03/27/21 09:30 03/27/21 10:00 03/27/21 10:40 Temperature 97.7 F Pulse Rate 87 87 Respiratory Rate 24 H 24 H Blood Pressure 81/46 L 97/56 L 100/53 L Pulse Oximetry 100 100 03/27/21 10:46 03/27/21 10:50 03/27/21 11:01 Temperature 97.4 F L Pulse Rate 86 84 Respiratory Rate 24 H Blood Pressure 96/56 L 99/59 L Pulse Oximetry 95 100 03/27/21 12:00 03/27/21 12:35 03/27/21 14:00 Temperature 97.4 F L Pulse Rate 88 90 Respiratory Rate 24 H 24 H Blood Pressure 106/59 L 112/66 109/64 Pulse Oximetry 100 100 03/27/21 14:05 03/27/21 14:45 03/27/21 15:00 Temperature Pulse Rate 90 87 Respiratory Rate 24 H Blood Pressure 109/64 91/55 L Pulse Oximetry 100 03/27/21 15:24 03/27/21 15:34 03/27/21 15:53 Temperature 97.8 F Pulse Rate 88 81 88 Respiratory Rate 24 H 24 H 26 H Blood Pressure 102/58 L Pulse Oximetry 100 03/27/21 16:00 03/27/21 16:06 03/27/21 16:08 Temperature 97.7 F Pulse Rate 88 86 Respiratory Rate 24 H 24 H Blood Pressure 107/61 107/61 Pulse Oximetry 100 03/27/21 16:10 03/27/21 16:15 03/27/21 17:20 Temperature 97.8 F 97.7 F Pulse Rate 86
[2021-03-28 08:19] LABS: Hepatitis B Surface Antigen Negative (Negative)
[2021-03-28] MEDS: SODIUM CHLORIDE 0.9% IV 250 ML 30 ML IV CONT (08:22)
[2021-03-28 08:23] LABS: Hepatitis B Core IgM Result Negative (Negative)
[2021-03-28] MEDS: PANTOPRAZOLE SODIUM IV 40 MG VIAL IV PUSH ×2 (08:23→21:00)
[2021-03-28] MEDS: TOLNAFTATE 1% POWDER 45 GM BTL 1 APPLIC TOPICAL ×2 (08:24→20:59)
[2021-03-28] MEDS: KETOROLAC 0.5% OP SOLN 5 ML BOTTLE 1 DROP RIGHT EYE (08:24)
[2021-03-28] MEDS: SILVERGEL (ELTA) 45 ML 1 APPLIC TOPICAL (08:24)
[2021-03-28] MEDS: SODIUM BICARBONATE TAB 650 MG TABLET 1300 MG PO (08:24)
[2021-03-28 08:36] LABS: Glucose Point of Care 120 mg/dl (65-105)
[2021-03-28 08:40] LABS: Hepatitis B Surface Anti Res Positive
--- NOTE | 2021-03-28 09:18 | WPDINTPN ---
Progress Note: A&P Assessment and Plan (1) Acute respiratory failure: Code(s): J96.00 - Acute respiratory failure, unspecified whether with hypoxia or hypercapnia Status: Acute Assessment and Plan: Acute respiratory failure likely related to metabolic acidosis, septic shock, acute kidney injury, volume overload congestive heart failure -patient successfully intubated on 03/26/2021 a lengthy discussion with the family who requested continuing with all medical modalities to keep the patient alive. -x-ray reviewed, currently on 35% FiO2, peep of 5 -pH of 6.96, likely related to severe metabolic acidosis secondary to lactic acidosis, septic shock, uremia a ventilator adjusted, increased respiratory rate to compensate -continue bronchodilators (2) Shock: Code(s): R57.9 - Shock, unspecified Status: Acute Assessment and Plan: Shock -likely septic shock, hypovolemia, third-spacing, malnourishment, hypoalbuminemia -continue Levophed and titrate to maintain arterial pressures >70 mmHg for adequate renal and other end organ perfusion -Anuric with worsening creatinine and -lactic of 19.3 -worsening LFTs -hypothermic: continue Yohana Hugger -03/25/2021:blood cultures growing gustavo t 12/04 bottles, discussed with Dr. Canseco -infectious disease. Continue MICAFUNGIN The fungemia could be related to Port-A-Cath versus abdominal abscess. Infectious disease doctor stated if it is from the Port-A-Cath may not be resolved with medical treatment/antifungals. - CT scan abd/pelvis shows a left anti abdomen abscess with fluid collection 9.8 x 2.3 x 5.4 cm -Patient is on Bicarb infusion at 50 mL/hour, Also on albumin given patient may be third-spacing -continue Bicarb to treat acidosis -12/28 linezolid and Zosyn discontinued by infectious disease (3) Pneumonia: Qualifiers: Pneumonia type: due to unspecified organism Laterality: bilateral Code(s): J18.9 - Pneumonia, unspecified organism Status: Acute Assessment and Plan: Chest x-ray shows bilateral infiltrates and cardiomegaly -infectious disease following the patient (4) Abdominal abscess: Status: Resolved Assessment and Plan: 03/27/[address] scan of the abdomen and pelvis 1. 9.8 x 2.3 x 5.4 cm fluid collection in left anterior abdomen, which may be an abscess. 2. Stable peritoneal mass anterior to the rectum on the right, consistent with metastatic disease. 3. Moderate-sized right and small left pleural effusions. 4. Groundglass opacities in left lung upper lobe, consistent with atelectasis versus inflammation or edema. 5. Gallbladder distention, which may be secondary to fasting. Acalculus cholecystitis cannot be excluded. 03/07/21: CT showed 10.2 x 6.9 x 12.7 cm fluid collection in the right abdomen of uncertain etiology, stable from 03/02/21 and new from 02/06/21. Patient received platelets transfusion yesterday. Abscess was drained by interventional radiology and drain was left in place for few days. Eventually drain was removed once the output diminished Continue antibiotics as above (5) Acute on chronic renal failure: Qualifiers: Acute renal failure type: unspecified Code(s): N17.9 - Acute kidney failure, unspecified; N18.9 - Chronic kidney disease, unspecified Status: Acute Assessment and Plan: Acute kidney injury over chronic kidney disease -significantly decreased urine output from nephrostomy tubes, creatinine rising, likely related to septic shock, hypotension, third-spacing, possible venous obstruction Patient is being seen by Nephrology and Urology at this time Nephrostomies tubes are in place with almost no urine output Given her overall condition multiorgan failure along with decreased platelets and metastatic colon CA, discussed extensively with surgery to extensively discussed it with the family, patient is not a candidate for minor or major surgical procedures at this time including
--- NOTE | 2021-03-28 09:38 | PC.NURSE ---
Patient turned for wound care, immediately began to have melena, bradycardia down to 25 with turning but maintained pulse.
[2021-03-28] MEDS: MICAFUNGIN SODIUM 100 MG in SODIUM CHLORIDE 0.9% IV 100 ML IVPB (11:07)
--- NOTE | 2021-03-28 11:09 | PM.IMPN ---
Progress Note: A&P Assessment and Plan (1) Encephalopathy: Code(s): G93.40 - Encephalopathy, unspecified Status: Acute Assessment and Plan: Multifactorial most likely related to bacteremia underlying diagnosis of cancer renal failure probable pneumonia and pulmonary edema and severe acidosis. Currently sedated intubated (2) Acute respiratory failure: Code(s): J96.00 - Acute respiratory failure, unspecified whether with hypoxia or hypercapnia Status: Acute Assessment and Plan: Patient developed acute hypoxic respiratory failure since admission. Was requiring high flow therapy with face mask problem probably related to pneumonia pulmonary edema worsening required mechanical ventilation patient has severe acidosis (3) Bacteremia: Code(s): R78.81 - Bacteremia Status: Acute Assessment and Plan: Patient with 1 blood culture growing Bacteroides fragilis and VRE. 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 Source most likely related to the abdominal abscess or possibly urine. Infectious Disease consulted and appreciate their input. s/p off Zosyn and Linezolid. Prognosis poor. Has fungemia started on antifungal IV treatment poor prognosis (4) Abdominal abscess: Status: Resolved Assessment and Plan: Initial CT abdomen/pelvis 03/07/21 with 10.2cm fluid collection in right abdomen with percutaneous drain placed 03/10. 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 General surgery managing the drain (5) Pneumonia: Qualifiers: Pneumonia type: due to unspecified organism Laterality: bilateral Code(s): J18.9 - Pneumonia, unspecified organism Status: Acute Assessment and Plan: Imaging was showing chest with bilateral infiltrates probable combination of pneumonia and pulmonary edema DC antibiotics per ID recommendation dialysis (6) Acute on chronic renal failure: Qualifiers: Acute renal failure type: unspecified Code(s): N17.9 - Acute kidney failure, unspecified; N18.9 - Chronic kidney disease, unspecified Status: Acute Assessment and Plan: Probable ATN surgery was consulted dialysis catheter placement 03/27/2021 Start dialysis on 03/28/2021. (7) Bilateral ureteral obstruction: Code(s): N13.5 - Crossing vessel and stricture of ureter without hydronephrosis Status: Acute Assessment and Plan: Bilateral percutaneous nephrostomy tubes in place. Appreciate help from Urology. (8) Anasarca: Code(s): R60.1 - Generalized edema Status: Acute Assessment and Plan: Plan for dialysis (9) Protein calorie malnutrition: Code(s): E46 - Unspecified protein-calorie malnutrition Status: Chronic Assessment and Plan: Severe protein calorie malnutrition probably related to cancer dietitian evaluation (10) Thrombocytopenia: Code(s): D69.6 - Thrombocytopenia, unspecified Status: Acute Assessment and Plan: Platelet count low at 122K on admission required multiple unit platelet transfusion hematology consult Requiring multiple units blood transfusion (11) Anemia: Code(s): D64.9 - Anemia, unspecified Status: Acute Assessment and Plan: Acute blood loss anemia Hemoglobin 7.9 on admission Probably related to her malignancy and thrombocytopenia. Most likely acute blood loss anemia multifactorial secondary to GI bleed blood transfusion keep platelets above 20,000 GI follow-up Hematology recommendation appreciated Platelet and blood transfusion per export freight specialist and Hematology recommendation (12) Metastatic colon cancer in female: Onset Date: ~2017 Code(s): C18.9 - Malignant neoplasm of colon, unspecified Status: Chronic Assessment and Plan: Diagnosis with colon cancer in 2015, status post colectomy with colo
--- NOTE | 2021-03-28 11:09 | PCDIET ---
ICU Rounding Note: Patient remains NPO which is appropriate. Not stable for enteral feedings at this time and having GI bleeding. Last recorded weight is 90.2kg which is stable with last review. +I/O. Bowel Motility: +BM today, bloody. Labs Reviewed: WBC (18.2), Hgb (6.1), Hct (19.6), Glu (128), BUN (82), Cr (4.0), Na (128), Alb (3.1), Don Ca (8.62), Lactic Acid (19.3) Meds Noted: Protonix, Pred Forte, Versed, Micafungin, Versed, Sodium Bicarbonate, Albutein, Solu Cortef, Albuterol, Novolog, Atrovent, Vasopressin Additional Notes: No skin changes reported. Following daily in ICU rounds. Assessing/reassessing every 3 days.
[2021-03-28 12:15] LABS: Glucose Point of Care 94 mg/dl (65-105)
[2021-03-28] MEDS: NOREPINEPHRINE 8 MG/D5W 250 ML 8 MG/250 ML BAG 35.63 MG IV CONT (13:09)
--- NOTE | 2021-03-28 15:13 | PM.PNNEP ---
Progress Note: A&P Assessment and Plan (1) JOSE (acute kidney injury): Code(s): N17.9 - Acute kidney failure, unspecified Status: Acute Assessment and Plan: suspect due to ATN from infection/abscess/bacteremia urine electrolytes are non-prerenal urine eosinophils negative overall prognosis is grim -- see discussion below (2) Stage 3b chronic kidney disease: Code(s): N18.32 - Chronic kidney disease, stage 3b Status: Chronic Assessment and Plan: due to hypertension and recurrent obstruction. currently has bilateral nephrostomy tubes. baseline creatinine at 1.6 - 2.1mg/dl The patient is not a candidate for renal replacement therapy -- regular intermittent dialysis and/or CRRT would not be tolerated and would likely be life threatening - I suspect it would likely cause more harm than good; placement of a dialysis catheter would be extremely challenging as she has a high risk of catastrophic bleeding given her persistent thrombocytopenia as well. Furthermore, dialysis will not likely change her other co-morbidities including her fungemia, abdominal abscess, sepsis, respiratory failure, and metastatic colon cancer. Will follow from a distance since not much else to offer and we are at a point where ongoing therapy is futile. Subjective Date/time seen: 03/28/21 15:13 Continues to deteriorate with worsening acidosis secondary to lactic acidosis as well ongoing high vasopressor needs; declininc urine output and remains on full ventilator support; family continue to request full code status despite her current multisystem organ failure. Objective Data Vital Signs Vital Signs: Vital Signs Temp Pulse Resp BP Pulse Ox 03/28/21 14:30 86 20 03/28/21 14:11 83 20 03/28/21 14:10 96 03/28/21 14:00 94 28 H 106/69 03/28/21 13:09 83 111/67 03/28/21 12:27 91 107/65 03/28/21 12:00 36.4 C L 96 28 H 108/69 03/28/21 11:56 100 03/28/21 11:43 93 03/28/21 11:10 92 103/74 03/28/21 10:11 36.3 C L 93 28 H 107/74 100 03/28/21 10:00 36.3 C L 93 28 H 108/63 03/28/21 09:54 93 03/28/21 09:11 36.0 C L 92 28 H 126/64 98 03/28/21 08:40 92 26 H 03/28/21 08:36 94 100 03/28/21 08:29 100 28 H 03/28/21 08:11 36.2 C L 93 28 H 120/66 98 03/28/21 08:00 94 98 03/28/21 07:56 36.2 C L 94 28 H 113/64 100 03/28/21 07:38 36.2 C L 93 28 H 107/58 L 100 03/28/21 06:38 86 110/57 L 03/28/21 06:36 110/57 L 03/28/21 06:01 110/57 L 03/28/21 06:00 94 27 H 114/81 98 03/28/21 05:00 111/73 03/28/21 04:33 79 115/69 03/28/21 04:16 68 96 03/28/21 04:00 35.9 C L 73 27 H 114/64 95 03/28/21 02:00 79 24 H 113/65 94 03/28/21 01:25 85 24 H 03/28/21 01:23 85 94 03/28/21 01:20 85 24 H 03/28/21 00:25 85 116/69 03/28/21 00:21 86 111/63 03/28/21 00:00 36.2 C L 91 27 H 114/64 96 03/27/21 23:07 84 97 03/27/21 22:00 85 24 H 103/57 L 99 03/27/21 21:49 104/58 L 03/27/21 21:30 100/54 L 03/27/21 20:00 36.4 C 87 24 H 93/56 L 99 03/27/21 19:50 86 26 H 03/27/21 19:48 87 100 03/27/21 19:44 87 24 H 03/27/21 19:25 88/55 L 03/27/21 18:00 87 24 H 99/57 L 99 03/27/21 17:54 100/60 03/27/21 17:20 88 98 Intake/Output Intake/Output: Intake & Output 03/25/21 03/26/21 03/27/21 03/28/21 23:59 23:59 23:59 23:59 Intake Total 3351.7 2830.1 3173.2 2215.5 Output Total 100 230 330 90 Balance 3251.7 2600.1 2843.2 2125.5 Meds/Results Medications: Active Medications Generic Name Dose Route Start Last Admin Trade Name Freq PRN Reason Stop Dose Admin Acetaminophen 650 mg 03/06/21 20:24 03/18/21 21:13 Acetaminophen 325 Mg Tablet PO 650 mg Q4H PRN Administration Pain Rated 4-6 Albuterol 2.5 mg 03/27/21 14:00 03/28/21 14:11 Albuterol
[2021-03-28 15:55] LABS: Glucose Point of Care 140 mg/dl (65-105)
[2021-03-28] MEDS: SODIUM BICARBONATE 8.4% 150 MEQ in DEXTROSE 5% 1,000 ML 950 ML 50 ML IV CONT (16:40)
[2021-03-28] MEDS: NOREPINEPHRINE 8 MG/D5W 250 ML 8 MG/250 ML BAG 39.38 MG IV CONT (20:58)
[2021-03-28 21:11] LABS: Glucose Point of Care 118 mg/dl (65-105)
[2021-03-28 23:52] LABS: Glucose Point of Care 136 mg/dl (65-105)
[2021-03-29] VITALS (37 sets, daily range): BP systolic 80–115; BP diastolic 46–77; PULSE 82–105; RESP 26–32; TEMP 36.1–36.9; O2SAT 92–100
[2021-03-29] MEDS: IPRATROPIUM BR 0.02% INH SOLN 0.5 MG/2.5 ML VIAL INHALATION ×4 (02:02→21:01)
[2021-03-29] MEDS: ALBUTEROL SULFATE NEB 2.5 MG/0.5 ML INH INHALATION ×4 (02:02→21:01)
[2021-03-29] MEDS: NOREPINEPHRINE 8 MG/D5W 250 ML 8 MG/250 ML BAG 33.75 MG IV CONT (03:25)
[2021-03-29 04:10] LABS: Alveolar/Arterial O2 Gradient 89.5 mmHg; Base Excess ABG -22.4 mEq/l (+/-2.0); Carboxyhemoglobin 0.2 % THb (0-2.0); Fractional Inspired Oxygen 35 %; HCO3 ABG 5.6 mEq/l (22.0-26.0); Methemoglobin ABG 0.6 %THb (0-1.5); Oxygen Content ABG 11.4 %vol (16.0-22.0); Oxygen Saturation ABG 97.7 % (95.0-100.0); Oxyhemoglobin 96.6 % THb (90.0-100.0); PO2 ABG 137.5 mmHg (80.0-100.0); PO2 FiO2 Ratio Arterial Blood 3.93 %; Reduced Hemoglobin 2.6 %THb (0-5.0); Total Hemoglobin 8.2 g/dL (12.0-18.0)
[2021-03-29 04:12] LABS: Device VENTILATOR; Modified Allen's Test Pass; Site Drawn LEFT RADIAL; pH ABG 7.081 (7.350-7.450)
[2021-03-29 04:13] LABS: Arterial Blood Gas PEEP 5 cmH2O; Arterial Blood Gas Tidal Volume 400 ml; Arterial Blood Gas Vent Mode CMV; Arterial Blood Gas Ventilator rate 28 /MIN
[2021-03-29 04:32] LABS: PCO2 ABG 19.4 mmHg (35.0-45.0)
[2021-03-29 05:33] LABS: Hematocrit 21.6 % (37.0-47.0); Hemoglobin 7.2 g/dL (12.0-15.0); Immature Platelet Fraction Pct 6.8 % (0.9-11.2); Mean Corpuscular HGB Conc 33.3 g/dl (32-36); Mean Corpuscular Hemoglobin 30.1 pg (26-34); Mean Corpuscular Volume 90.4 fl (80-100); Red Blood Count 2.39 M/mm3 (4.2-5.4); Red Cell Distribution Width 19.4 % (11.5-14.5); White Blood Count 14.1 K/mm3 (4.5-10.0)
[2021-03-29 05:41] LABS: INR 2.1; Prothrombin Time 23.9 Seconds (11.1-14.7)
[2021-03-29] MEDS: CENTRAL LINE FLUSH 10 ML IV PUSH ×3 (06:03→21:03)
[2021-03-29] MEDS: HYDROCORTISONE SODIUM SUCCINATE 100 MG/2 ML VIAL IV PUSH ×3 (06:04→21:03)
[2021-03-29 06:05] LABS: Albumin Level 2.8 g/dL (3.5-5.1); Alkaline Phosphatase 64 U/L (38-126); Aspartate Amino Transferase 530 U/L (14-36); Bilirubin,Total 3.6 mg/dL (0.2-1.3); Blood Urea Nitrogen 85 mg/dL (7-17); Calcium 7.9 mg/dL (8.4-10.2); Carbon Dioxide < 5 mmol/L (22-30); Chloride 89 mmol/L (98-107); Glucose 179 mg/dL (65-105); Magnesium 1.7 mg/dL (1.6-2.3); Phosphorus 7.4 mg/dL (2.5-4.5); Potassium 4.6 mmol/L (3.4-5.0); Sodium 126 mmol/L (137-145)
[2021-03-29 06:16] LABS: Alanine Aminotransferase 281 U/L (4-35); CRP 16.4 mg/dL (<1.0); Estimated CRCL calculation 17 ml/min; Estimated Glomerular Filt Rate 15
[2021-03-29 06:27] LABS: Lactic Acid Reflex 19.4 mmol/L (0.7-2.1); Platelet Count Result 3 k/mm3 (150-375)
[2021-03-29 06:27] LABS: Glucose Point of Care 168 mg/dl (65-105)
[2021-03-29 06:30] LABS: Band Neutrophils Percent 13 % (0-6); Lymphocytes Absolute Manual 0.98 K/mm3 (1.1-4.5); Neutrophils Absolute Manual 13.11 K/mm3 (1.7-7.2); Neutrophils Percent Manual 80 % (46-73); Platelet Estimate Decreased (Adequate); Total Cells Counted 100
[2021-03-29 06:32] LABS: Crenated RBC 2+ (NORMAL); Ovalocytes 2+ (NORMAL); Target Cells 1+ (NORMAL)
[2021-03-29 06:33] LABS: Anisocytosis 2+ (NORMAL)
[2021-03-29 08:27] LABS: Reflex Lactic Acid Yes or No Add Lactic
[2021-03-29] MEDS: MICAFUNGIN SODIUM 100 MG in SODIUM CHLORIDE 0.9% IV 100 ML IVPB (08:51)
[2021-03-29] MEDS: KETOROLAC 0.5% OP SOLN 5 ML BOTTLE 1 DROP RIGHT EYE (08:51)
[2021-03-29] MEDS: SILVERGEL (ELTA) 45 ML 1 APPLIC TOPICAL (08:51)
[2021-03-29] MEDS: PANTOPRAZOLE SODIUM IV 40 MG VIAL IV PUSH ×2 (08:52→20:18)
[2021-03-29] MEDS: TOLNAFTATE 1% POWDER 45 GM BTL 1 APPLIC TOPICAL ×2 (08:52→20:14)
[2021-03-29 09:25] LABS: Glucose Point of Care 135 mg/dl (65-105)
--- NOTE | 2021-03-29 09:27 | WPDINTPN ---
Progress Note: A&P Assessment and Plan (1) Acute respiratory failure: Code(s): J96.00 - Acute respiratory failure, unspecified whether with hypoxia or hypercapnia Status: Acute Assessment and Plan: Acute respiratory failure likely related to metabolic acidosis, septic shock, acute kidney injury, volume overload congestive heart failure -patient successfully intubated on 03/26/2021 a lengthy discussion with the family who requested continuing with all medical modalities to keep the patient alive. -x-ray reviewed, currently on 35% FiO2, peep of 5 -pH of 7.08, likely related to severe metabolic acidosis secondary to lactic acidosis, septic shock, uremia a ventilator adjusted, increased respiratory rate to compensate -continue bronchodilators (2) Shock: Code(s): R57.9 - Shock, unspecified Status: Acute Assessment and Plan: Shock -likely septic shock, hypovolemia, third-spacing, malnourishment, hypoalbuminemia -continue Levophed and titrate to maintain arterial pressures >70 mmHg for adequate renal and other end organ perfusion -Anuric with worsening creatinine and metabolic acidosis -lactic acid remains elevated 19.4, -worsening LFTs -patient also has had blood in stools which could be related to ischemic bowel -03/25/2021:blood cultures growing gustavo t 12/04 bottles, discussed with Dr. Canseco -infectious disease. Continue MICAFUNGIN The fungemia could be related to Port-A-Cath versus abdominal abscess. Infectious disease doctor stated if it is from the Port-A-Cath may not be resolved with medical treatment/antifungals. - CT scan abd/pelvis shows a left anti abdomen abscess with fluid collection 9.8 x 2.3 x 5.4 cm -Patient is on Bicarb infusion at 50 mL/hour, Also on albumin given patient may be third-spacing -continue Bicarb to treat acidosis -12/28 linezolid and Zosyn discontinued by infectious disease (3) Pneumonia: Qualifiers: Pneumonia type: due to unspecified organism Laterality: bilateral Code(s): J18.9 - Pneumonia, unspecified organism Status: Acute Assessment and Plan: Chest x-ray shows bilateral infiltrates and cardiomegaly -infectious disease following the patient (4) Abdominal abscess: Status: Resolved Assessment and Plan: 03/27/[address] scan of the abdomen and pelvis 1. 9.8 x 2.3 x 5.4 cm fluid collection in left anterior abdomen, which may be an abscess. 2. Stable peritoneal mass anterior to the rectum on the right, consistent with metastatic disease. 3. Moderate-sized right and small left pleural effusions. 4. Groundglass opacities in left lung upper lobe, consistent with atelectasis versus inflammation or edema. 5. Gallbladder distention, which may be secondary to fasting. Acalculus cholecystitis cannot be excluded. Discussed with surgery, patient is not a candidate for minor or major procedures, surgeon has updated the family on this. She is not a candidate just given how sick she is at this time 03/07/21: CT showed 10.2 x 6.9 x 12.7 cm fluid collection in the right abdomen of uncertain etiology, stable from 03/02/21 and new from 02/06/21. Patient received platelets transfusion yesterday. Abscess was drained by interventional radiology and drain was left in place for few days. Eventually drain was removed once the output diminished Continue antibiotics as above (5) Acute on chronic renal failure: Qualifiers: Acute renal failure type: unspecified Code(s): N17.9 - Acute kidney failure, unspecified; N18.9 - Chronic kidney disease, unspecified Status: Acute Assessment and Plan: Acute kidney injury over chronic kidney disease -significantly decreased urine output from nephrostomy tubes, creatinine rising, likely related to septic shock, hypotension, third-spacing, possible venous obstruction Patient is being seen by Nephrology and Urology at this time Nephrostomies tubes are in place with almost no urine output Give
[2021-03-29 10:15] LABS: Lactic Acid 19.8 mmol/L (0.7-2.1)
--- NOTE | 2021-03-29 10:21 | PM.IMPN ---
Progress Note: A&P Assessment and Plan (1) Encephalopathy: Code(s): G93.40 - Encephalopathy, unspecified Status: Acute Assessment and Plan: Multifactorial most likely related to bacteremia underlying diagnosis of cancer renal failure probable pneumonia and pulmonary edema and severe acidosis. Currently sedated intubated (2) Acute respiratory failure: Code(s): J96.00 - Acute respiratory failure, unspecified whether with hypoxia or hypercapnia Status: Acute Assessment and Plan: Patient developed acute hypoxic respiratory failure since admission. Was requiring high flow therapy with face mask problem probably related to pneumonia pulmonary edema worsening required mechanical ventilation patient has severe acidosis (3) Bacteremia: Code(s): R78.81 - Bacteremia Status: Acute Assessment and Plan: Patient with 1 blood culture growing Bacteroides fragilis and VRE. 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 Source most likely related to the abdominal abscess or possibly urine. Infectious Disease consulted and appreciate their input. s/p off Zosyn and Linezolid. Prognosis poor. Has fungemia started on antifungal IV treatment poor prognosis on 03/27/2021 (4) Abdominal abscess: Status: Resolved Assessment and Plan: Initial CT abdomen/pelvis 03/07/21 with 10.2cm fluid collection in right abdomen with percutaneous drain placed 03/10. 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 General surgery managing the drain (5) Pneumonia: Qualifiers: Pneumonia type: due to unspecified organism Laterality: bilateral Code(s): J18.9 - Pneumonia, unspecified organism Status: Acute Assessment and Plan: Imaging was showing chest with bilateral infiltrates probable combination of pneumonia and pulmonary edema DC antibiotics per ID recommendation dialysis (6) Acute on chronic renal failure: Qualifiers: Acute renal failure type: unspecified Code(s): N17.9 - Acute kidney failure, unspecified; N18.9 - Chronic kidney disease, unspecified Status: Acute Assessment and Plan: Probable ATN surgery was consulted dialysis catheter placement 03/27/2021 Start dialysis on 03/28/2021. (7) Bilateral ureteral obstruction: Code(s): N13.5 - Crossing vessel and stricture of ureter without hydronephrosis Status: Acute Assessment and Plan: Bilateral percutaneous nephrostomy tubes in place. Appreciate help from Urology. (8) Anasarca: Code(s): R60.1 - Generalized edema Status: Acute Assessment and Plan: Continue dialysis no improvement (9) Protein calorie malnutrition: Code(s): E46 - Unspecified protein-calorie malnutrition Status: Chronic Assessment and Plan: Severe protein calorie malnutrition probably related to cancer dietitian evaluation (10) Thrombocytopenia: Code(s): D69.6 - Thrombocytopenia, unspecified Status: Acute Assessment and Plan: Platelet count low at 122K on admission required multiple unit platelet transfusion hematology consult Requiring multiple units blood transfusion (11) Anemia: Code(s): D64.9 - Anemia, unspecified Status: Acute Assessment and Plan: Acute blood loss anemia Hemoglobin 7.9 on admission Probably related to her malignancy and thrombocytopenia. Most likely acute blood loss anemia multifactorial secondary to GI bleed blood transfusion keep platelets above 20,000 GI follow-up Hematology recommendation appreciated Platelet and blood transfusion per manager intensive care and Hematology recommendation No improvement (12) Metastatic colon cancer in female: Onset Date: ~2017 Code(s): C18.9 - Malignant neoplasm of colon, unspecified Status: Chronic Assessment and Plan: Diagnosis with colon ca
[2021-03-29] MEDS: NOREPINEPHRINE 8 MG/D5W 250 ML 8 MG/250 ML BAG 41.25 MG IV CONT ×3 (10:39→23:45)
--- NOTE | 2021-03-29 11:04 | PCDIET ---
Nutrition Follow-Up Complete: Nutrition Diagnosis: Increased protein needs related to pressure ulcer as evidence by comprehensive wound assessment and needs of 94-110g of protein daily for wound healing Nutrition Goal: PO intake of 75% or greater to meet increased protein needs Goal not met. MD discussed during rounds that unable safely to feed patient at this time. Last recorded weight is 96.8 kg which is increased from last review. +I/O. Bowel Motility: BM reported yesterday, 03/28/21. Labs Reviewed: WBC (14.1), Hgb (7.2), Hct (21.6), Glu (179), BUN (85), Cr (3.7), Na (126), Alb (2.8), Don Ca (8.86), PO4 (7.4), Lactic Acid (19.4), Platelets (3) Meds Noted: Albuterol, Solu Cortef, Atrovent, Micafungin, Versed, Levophed, Protonix, Vasopressin, D5/150mEq Sodium Bicarbonate at 50mL/hr Additional Notes: No change in skin, per RN. Patient still with areas on coccyx and abdomen. Will continue to monitor. Nutrition Monitoring and Evaluation: Follow up every 3 days.
[2021-03-29] MEDS: SODIUM CHLORIDE 0.9% IV 250 ML 30 ML IV CONT (11:30)
[2021-03-29 12:00] LABS: Glucose Point of Care 83 mg/dl (65-105)
--- NOTE | 2021-03-29 12:30 | WPDGIPROGNO ---
Progress Note: A&P Assessment and Plan (1) Acute respiratory failure: Code(s): J96.00 - Acute respiratory failure, unspecified whether with hypoxia or hypercapnia Status: Acute (2) Shock: Code(s): R57.9 - Shock, unspecified Status: Acute (3) GI bleed: Code(s): K92.2 - Gastrointestinal hemorrhage, unspecified Status: Acute (4) Thrombocytopenia: Code(s): D69.6 - Thrombocytopenia, unspecified Status: Acute (5) Metastatic colon cancer in female: Onset Date: ~2017 Code(s): C18.9 - Malignant neoplasm of colon, unspecified Status: Chronic (6) Colon cancer: Qualifiers: Colon location: unspecified part of colon Qualified Code(s): C18.9 - Malignant neoplasm of colon, unspecified Code(s): C18.9 - Malignant neoplasm of colon, unspecified Status: Acute (7) Acute renal injury: Code(s): N17.9 - Acute kidney failure, unspecified Status: Acute Additional Plan patient unresponsive remains on ventilator has multiple organ system failure. Platelets are only 3 today. Oozing noted from mouth and nose. Hemoglobin is essentially stable however. No significant GI blood loss today to speak of. Patient now anuric. Multi organ failure noted. Poor long-term prognosis. GI endoscopy not feasible under these conditions and would cause more harm than benefit. GI service available if necessary. Continue follow from the periphery at this point. Subjective Date/time seen: 03/29/21 12:30 Patient remains intubated on the ventilator. Not responsive. Remains on pressor agents. Nursing staff reports losing and bleeding diffusely. Review of Systems Review of Systems: ROS unobtainable: Yes unobtainable due to endotracheal tube, unobtainable due to medical condition and unobtainable due to mental status Exam Narrative: Exam Narrative: Physical exam reveals patient be intubated ventilator non responsive. Lungs reveal bilateral rhonchi heart without murmur. Abdomen somewhat tense. Bowel sounds present no masses evident Objective Data Vital Signs Vital Signs: Vital Signs - 24 hr 03/28/21 13:09 03/28/21 14:00 03/28/21 14:10 Temperature Pulse Rate 83 94 96 Respiratory Rate 28 H Blood Pressure 111/67 106/69 Pulse Oximetry 100 100 03/28/21 14:11 03/28/21 14:30 03/28/21 15:47 Temperature 97.1 F L Pulse Rate 83 86 82 Respiratory Rate 20 20 28 H Blood Pressure 93/54 L Pulse Oximetry 100 03/28/21 16:00 03/28/21 17:03 03/28/21 18:00 Temperature Pulse Rate 81 87 85 Respiratory Rate 28 H Blood Pressure 113/61 Pulse Oximetry 100 100 100 03/28/21 20:00 03/28/21 20:07 03/28/21 20:08 Temperature 96.7 F L Pulse Rate 83 83 83 Respiratory Rate 28 H 28 H Blood Pressure 118/64 Pulse Oximetry 100 100 03/28/21 20:17 03/28/21 20:58 03/28/21 22:00 Temperature 96.9 F L Pulse Rate 87 83 83 Respiratory Rate 28 H 28 H Blood Pressure 119/66 115/68 Pulse Oximetry 100 03/28/21 22:30 03/28/21 23:15 03/28/21 23:45 Temperature Pulse Rate 82 Respiratory Rate Blood Pressure 121/66 122/68 119/64 Pulse Oximetry 98 03/29/21 00:00 03/29/21 02:00 03/29/21 02:04 Temperature 97 F L Pulse Rate 82 84 84 Respiratory Rate 28 H 28 H 28 H Blood Pressure 115/61 111/57 L Pulse Oximetry 96 92 03/29/21 02:06 03/29/21 02:14 03/29/21 04:00 Temperature 97.3 F L Pulse Rate 84 86 84 Respiratory Rate 28 H 28 H Blood Pressure 111/62 Pulse Oximetry 95 96 03/29/21 05:02 03/29/21 06:00 03/29/21 06:09 Temperature 97.1 F L Pulse Rate 85 87 Respiratory Rate 28 H Blood Pressure 86/46 L 86/46 L Pulse Oximetry 98 98 03/29/21 06:20 03/29/21 08:00 03/29/21 08:20 Temperature 97.0 F L Pulse Rate 84 93 Respiratory Rate 28 H 28 H Blood Pressure 83/48 L 94/59 L Pulse Oximetry 100 100 03/29/21 08:31 03/29/21 09:02 03/29/21 10:00 Temperature Pulse Rate 85 92 97 Respi
[2021-03-29] MEDS: SODIUM BICARBONATE 8.4% 150 MEQ in DEXTROSE 5% 1,000 ML 950 ML 50 ML IV CONT (14:09)
[2021-03-29 16:02] LABS: Glucose Point of Care 126 mg/dl (65-105)
[2021-03-29 21:09] LABS: Glucose Point of Care 112 mg/dl (65-105)
[2021-03-29 23:56] LABS: Glucose Point of Care 103 mg/dl (65-105)
[2021-03-30] VITALS (34 sets, daily range): BP systolic 92–128; BP diastolic 48–77; PULSE 72–101; RESP 28–33; TEMP 36.2; O2SAT 93–100
[2021-03-30] MEDS: IPRATROPIUM BR 0.02% INH SOLN 0.5 MG/2.5 ML VIAL INHALATION ×4 (02:30→20:50)
[2021-03-30] MEDS: ALBUTEROL SULFATE NEB 2.5 MG/0.5 ML INH INHALATION ×4 (02:30→20:50)
[2021-03-30 05:01] LABS: Glucose Point of Care 99 mg/dl (65-105)
[2021-03-30 05:18] LABS: Alveolar/Arterial O2 Gradient 52.2 mmHg; Base Excess ABG -21.4 mEq/l (+/-2.0); Carboxyhemoglobin 0.2 % THb (0-2.0); Fractional Inspired Oxygen 30 %; HCO3 ABG 6.4 mEq/l (22.0-26.0); Methemoglobin ABG 0.5 %THb (0-1.5); Oxygen Content ABG 9.6 %vol (16.0-22.0); Oxygen Saturation ABG 97.8 % (95.0-100.0); Oxyhemoglobin 96.6 % THb (90.0-100.0); PO2 ABG 136.8 mmHg (80.0-100.0); PO2 FiO2 Ratio Arterial Blood 4.56 %; Reduced Hemoglobin 2.7 %THb (0-5.0)
[2021-03-30 05:20] LABS: Modified Allen's Test Pass; PCO2 ABG 21.2 mmHg (35.0-45.0); Site Drawn RIGHT RADIAL; Total Hemoglobin 6.8 g/dL (12.0-18.0); pH ABG 7.099 (7.350-7.450)
[2021-03-30 05:21] LABS: Arterial Blood Gas PEEP 5 cmH2O; Arterial Blood Gas Vent Mode CMV; Arterial Blood Gas Ventilator rate 28 /MIN; Device VENTILATOR
[2021-03-30 05:22] LABS: Arterial Blood Gas Tidal Volume 400 ml
[2021-03-30 05:39] LABS: Immature Platelet Fraction Pct 1.1 % (0.9-11.2); Mean Corpuscular HGB Conc 32.8 g/dl (32-36); Mean Corpuscular Hemoglobin 30.2 pg (26-34); Mean Corpuscular Volume 92.1 fl (80-100); Mean Platelet Volume 9.6 fl (7.4-10.4); Platelet Count Result 31 k/mm3 (150-375); Red Blood Count 2.02 M/mm3 (4.2-5.4); Red Cell Distribution Width 20.4 % (11.5-14.5); White Blood Count 11.9 K/mm3 (4.5-10.0)
[2021-03-30 05:42] LABS: Albumin Level 2.8 g/dL (3.5-5.1); Alkaline Phosphatase 75 U/L (38-126); Aspartate Amino Transferase 267 U/L (14-36); Bilirubin,Total 3.3 mg/dL (0.2-1.3); Blood Urea Nitrogen 86 mg/dL (7-17); Calcium 8.5 mg/dL (8.4-10.2); Carbon Dioxide < 5 mmol/L (22-30); Chloride 86 mmol/L (98-107); Glucose 124 mg/dL (65-105); Magnesium 1.7 mg/dL (1.6-2.3); Potassium 4.9 mmol/L (3.4-5.0); Sodium 126 mmol/L (137-145)
[2021-03-30] MEDS: CENTRAL LINE FLUSH 10 ML IV PUSH ×3 (05:55→20:47)
[2021-03-30] MEDS: HYDROCORTISONE SODIUM SUCCINATE 100 MG/2 ML VIAL IV PUSH ×3 (05:55→20:48)
[2021-03-30] MEDS: NOREPINEPHRINE 8 MG/D5W 250 ML 8 MG/250 ML BAG 41.25 MG IV CONT ×3 (05:56→18:20)
[2021-03-30 05:59] LABS: Alanine Aminotransferase 231 U/L (4-35); Estimated CRCL calculation 17 ml/min; Estimated Glomerular Filt Rate 15
[2021-03-30 06:00] LABS: Hematocrit 18.6 % (37.0-47.0); Hemoglobin 6.1 g/dL (12.0-15.0)
[2021-03-30] MEDS: TOLNAFTATE 1% POWDER 45 GM BTL 1 APPLIC TOPICAL ×2 (08:48→20:45)
[2021-03-30] MEDS: KETOROLAC 0.5% OP SOLN 5 ML BOTTLE 1 DROP RIGHT EYE (08:49)
[2021-03-30] MEDS: MICAFUNGIN SODIUM 100 MG in SODIUM CHLORIDE 0.9% IV 100 ML IVPB (08:49)
[2021-03-30] MEDS: SCOPOLAMINE 1.5 MG PATCH TRANSDERM (08:49)
[2021-03-30] MEDS: SILVERGEL (ELTA) 45 ML 1 APPLIC TOPICAL (08:50)
[2021-03-30 09:01] LABS: Glucose Point of Care 101 mg/dl (65-105)
[2021-03-30] MEDS: PANTOPRAZOLE SODIUM IV 40 MG VIAL IV PUSH ×2 (09:15→20:47)
--- NOTE | 2021-03-30 09:29 | WPDINTPN ---
Progress Note: A&P Assessment and Plan (1) Acute respiratory failure: Code(s): J96.00 - Acute respiratory failure, unspecified whether with hypoxia or hypercapnia Status: Acute Assessment and Plan: Acute respiratory failure likely related to metabolic acidosis, septic shock, acute kidney injury, volume overload congestive heart failure -patient successfully intubated on 03/26/2021 a lengthy discussion with the family who requested continuing with all medical modalities to keep the patient alive. -x-ray reviewed, currently on 30% FiO2, peep of 5 -pH of 7.09, likely related to severe metabolic acidosis secondary to lactic acidosis, septic shock, uremia a ventilator adjusted, increased respiratory rate to compensate -continue bronchodilators (2) Shock: Code(s): R57.9 - Shock, unspecified Status: Acute Assessment and Plan: Shock -likely septic shock, hypovolemia, third-spacing, malnourishment, hypoalbuminemia -continue Levophed and titrate to maintain arterial pressures >70 mmHg for adequate renal and other end organ perfusion -Anuric with worsening creatinine and metabolic acidosis -lactic acid remains elevated 19.4, -worsening LFTs -patient also has had blood in stools which could be related to ischemic bowel -03/25/2021:blood cultures growing gustavo t 12/04 bottles, discussed with Dr. Canseco -infectious disease. Continue MICAFUNGIN The fungemia could be related to Port-A-Cath versus abdominal abscess. Infectious disease doctor stated if it is from the Port-A-Cath may not be resolved with medical treatment/antifungals. - CT scan abd/pelvis shows a left anti abdomen abscess with fluid collection 9.8 x 2.3 x 5.4 cm -Patient is on Bicarb infusion at 50 mL/hour, s/p albumin -12/28 linezolid and Zosyn discontinued by infectious disease (3) Pneumonia: Qualifiers: Pneumonia type: due to unspecified organism Laterality: bilateral Code(s): J18.9 - Pneumonia, unspecified organism Status: Acute Assessment and Plan: Chest x-ray shows bilateral infiltrates and cardiomegaly -infectious disease following the patient (4) Abdominal abscess: Status: Resolved Assessment and Plan: 03/27/[address] scan of the abdomen and pelvis 1. 9.8 x 2.3 x 5.4 cm fluid collection in left anterior abdomen, which may be an abscess. 2. Stable peritoneal mass anterior to the rectum on the right, consistent with metastatic disease. 3. Moderate-sized right and small left pleural effusions. 4. Groundglass opacities in left lung upper lobe, consistent with atelectasis versus inflammation or edema. 5. Gallbladder distention, which may be secondary to fasting. Acalculus cholecystitis cannot be excluded. Discussed with surgery, patient is not a candidate for minor or major procedures, surgeon has updated the family on this. She is not a candidate just given how sick she is at this time 03/07/21: CT showed 10.2 x 6.9 x 12.7 cm fluid collection in the right abdomen of uncertain etiology, stable from 03/02/21 and new from 02/06/21. Patient received platelets transfusion yesterday. Abscess was drained by interventional radiology and drain was left in place for few days. Eventually drain was removed once the output diminished Continue antibiotics as above (5) Acute on chronic renal failure: Qualifiers: Acute renal failure type: unspecified Code(s): N17.9 - Acute kidney failure, unspecified; N18.9 - Chronic kidney disease, unspecified Status: Acute Assessment and Plan: Acute kidney injury over chronic kidney disease -significantly decreased urine output from nephrostomy tubes, creatinine rising, likely related to septic shock, hypotension, third-spacing, possible venous obstruction Patient is being seen by Nephrology and Urology at this time Nephrostomies tubes are in place with almost no urine output Given her overall condition multiorgan failure along with decreased platelets
[2021-03-30] MEDS: SODIUM BICARBONATE 8.4% 150 MEQ in DEXTROSE 5% 1,000 ML 950 ML 50 ML IV CONT (10:08)
--- NOTE | 2021-03-30 11:01 | PCDIET ---
Nutrition Follow-Up Complete: Nutrition Diagnosis: Increased protein needs related to pressure ulcer as evidence by comprehensive wound assessment and needs of 94-110g of protein daily for wound healing Nutrition Goal: Patient to meet estimated nutritional needs Goal not met. Patient remains very sick with suspected bowel ischemia, low platelet count, kidney failure, etc. Noted HCO3 (6.4) and pH (7.099). Unable to dialyze. No additional recommendations at this time. Last recorded weight is 94.2 kg. +I/O. Urine output was 10mL on 03/29/21. Bowel Motility: +BM documented today. Labs Reviewed: Hgb (6.1), Hct (18.6), Glu (124), BUN (86), Cr (3.8), Na (126), Alb (2.8) Meds Noted: Albuterol, Solu Cortef, Atrovent, Micafungin, Versed, Levophed, Vasopressin, Protonix, D5/150mEq Sodium Bicarbonate at 50mL/hr Additional Notes: Will follow along closely and provide recommendations, in the event condition improves to allow initiation of nutrition support. Nutrition Monitoring and Evaluation: Follow up every 3 days.
[2021-03-30 11:43] LABS: Glucose Point of Care 107 mg/dl (65-105)
[2021-03-30] MEDS: VASOPRESSIN INJ 100 UNITS in DEXTROSE 5% 95 ML IV CONT (14:02)
[2021-03-30 16:59] LABS: Glucose Point of Care 105 mg/dl (65-105)
[2021-03-30 21:10] LABS: Glucose Point of Care 93 mg/dl (65-105)
[2021-03-31] VITALS (41 sets, daily range): BP systolic 95–106; BP diastolic 59–81; PULSE 89–102; RESP 24–31; TEMP 36.1–36.6; O2SAT 97–100
[2021-03-31 00:57] LABS: Glucose Point of Care 98 mg/dl (65-105)
[2021-03-31] MEDS: NOREPINEPHRINE 8 MG/D5W 250 ML 8 MG/250 ML BAG 39.38 MG IV CONT (01:23)
[2021-03-31] MEDS: ALBUTEROL SULFATE NEB 2.5 MG/0.5 ML INH INHALATION ×4 (02:20→19:58)
[2021-03-31] MEDS: IPRATROPIUM BR 0.02% INH SOLN 0.5 MG/2.5 ML VIAL INHALATION ×4 (02:20→19:58)
[2021-03-31 05:14] LABS: Alveolar/Arterial O2 Gradient 59.2 mmHg; Base Excess ABG -21.5 mEq/l (+/-2.0); Carboxyhemoglobin 0.3 % THb (0-2.0); Fractional Inspired Oxygen 30 %; HCO3 ABG 6.1 mEq/l (22.0-26.0); Methemoglobin ABG 0.5 %THb (0-1.5); Oxygen Content ABG 11.1 %vol (16.0-22.0); Oxygen Saturation ABG 97.7 % (95.0-100.0); Oxyhemoglobin 96.5 % THb (90.0-100.0); Reduced Hemoglobin 2.7 %THb (0-5.0)
[2021-03-31 05:15] LABS: pH ABG 7.115 (7.350-7.450)
[2021-03-31 05:16] LABS: Device VENTILATOR; Modified Allen's Test Unable to perform; PCO2 ABG 19.3 mmHg (35.0-45.0); Site Drawn RIGHT RADIAL
[2021-03-31 05:17] LABS: Arterial Blood Gas PEEP 5 cmH2O; Arterial Blood Gas Tidal Volume 400 ml; Arterial Blood Gas Vent Mode CMV; Arterial Blood Gas Ventilator rate 28 /MIN
[2021-03-31] MEDS: CENTRAL LINE FLUSH 10 ML IV PUSH ×3 (05:54→21:27)
[2021-03-31] MEDS: HYDROCORTISONE SODIUM SUCCINATE 100 MG/2 ML VIAL IV PUSH ×3 (05:55→21:31)
[2021-03-31 06:05] LABS: Glucose Point of Care 97 mg/dl (65-105)
[2021-03-31] MEDS: NOREPINEPHRINE 8 MG/D5W 250 ML 8 MG/250 ML BAG 35.63 MG IV CONT ×2 (08:12→15:05)
[2021-03-31] MEDS: MICAFUNGIN SODIUM 100 MG in SODIUM CHLORIDE 0.9% IV 100 ML IVPB (08:13)
[2021-03-31] MEDS: SODIUM BICARBONATE 8.4% 150 MEQ in DEXTROSE 5% 1,000 ML 950 ML 50 ML IV CONT (08:13)
[2021-03-31] MEDS: KETOROLAC 0.5% OP SOLN 5 ML BOTTLE 1 DROP RIGHT EYE (08:14)
[2021-03-31] MEDS: PANTOPRAZOLE SODIUM IV 40 MG VIAL IV PUSH ×2 (08:14→21:31)
[2021-03-31] MEDS: SILVERGEL (ELTA) 45 ML 1 APPLIC TOPICAL (08:14)
[2021-03-31] MEDS: TOLNAFTATE 1% POWDER 45 GM BTL 1 APPLIC TOPICAL ×2 (08:15→21:31)
[2021-03-31 08:16] LABS: Hemoglobin 7.1 g/dL (12.0-15.0); Immature Granulocyte Absolute 1.17 K/mm3 (0.00-0.031); Immature Granulocyte Percent A 10.9 % (0-0.5); Lymphocytes Absolute Auto 0.35 K/mm3 (0.9-3.2); Lymphocytes Percent Auto 3.2 % (18.3-44.2); Mean Corpuscular HGB Conc 32.3 g/dl (32-36); Mean Corpuscular Hemoglobin 30.2 pg (26-34); Mean Corpuscular Volume 93.6 fl (80-100); Monocytes Absolute Auto 0.1 K/mm3 (0.1-0.6); Monocytes Percent Auto 0.6 % (2.6-8.5); Neutrophils Absolute Auto 9.2 K/mm3 (1.3-6.7); Neutrophils Percent Auto 85.3 % (45.5-73.1); Red Blood Count 2.35 M/mm3 (4.2-5.4); Red Cell Distribution Width 19.7 % (11.5-14.5); White Blood Count 10.8 K/mm3 (4.5-10.0)
--- NOTE | 2021-03-31 08:18 | WPDINTPN ---
Progress Note: A&P Assessment and Plan (1) Acute respiratory failure: Code(s): J96.00 - Acute respiratory failure, unspecified whether with hypoxia or hypercapnia Status: Acute Assessment and Plan: Acute respiratory failure likely related to metabolic acidosis, septic shock, acute kidney injury, volume overload congestive heart failure -patient successfully intubated on 03/26/2021 a lengthy discussion with the family who requested continuing with all medical modalities to keep the patient alive. -x-ray reviewed, currently on 30% FiO2, peep of 5 -pH of 7.15, likely related to severe metabolic acidosis secondary to lactic acidosis, septic shock, uremia a ventilator adjusted, increased respiratory rate to compensate -continue bronchodilators (2) Shock: Code(s): R57.9 - Shock, unspecified Status: Acute Assessment and Plan: Shock -likely septic shock, hypovolemia, third-spacing, malnourishment, hypoalbuminemia -continue Levophed and titrate to maintain arterial pressures >70 mmHg for adequate renal and other end organ perfusion -Anuric with worsening creatinine and metabolic acidosis -lactic acid elevated -worsening LFTs -patient also has had blood in stools which could be related to ischemic bowel, coagulopathy, thrombocytopenia -03/25/2021:blood cultures growing gustavo 2/2 bottles, discussed with Dr. Canseco -infectious disease. Continue MICAFUNGIN The fungemia could be related to Port-A-Cath versus abdominal abscess. Infectious disease doctor stated if it is from the Port-A-Cath may not be resolved with medical treatment/antifungals. - CT scan abd/pelvis shows a left anti abdomen abscess with fluid collection 9.8 x 2.3 x 5.4 cm. Will start empiric antibiotic - zosyn -Patient is on Bicarb infusion at 50 mL/hour, s/p albumin -12/28 linezolid and Zosyn discontinued by infectious disease (3) Pneumonia: Qualifiers: Pneumonia type: due to unspecified organism Laterality: bilateral Code(s): J18.9 - Pneumonia, unspecified organism Status: Acute Assessment and Plan: Chest x-ray shows bilateral infiltrates and cardiomegaly -infectious disease following the patient (4) Abdominal abscess: Status: Resolved Assessment and Plan: 03/27/[address] scan of the abdomen and pelvis 1. 9.8 x 2.3 x 5.4 cm fluid collection in left anterior abdomen, which may be an abscess. 2. Stable peritoneal mass anterior to the rectum on the right, consistent with metastatic disease. 3. Moderate-sized right and small left pleural effusions. 4. Groundglass opacities in left lung upper lobe, consistent with atelectasis versus inflammation or edema. 5. Gallbladder distention, which may be secondary to fasting. Acalculus cholecystitis cannot be excluded. Discussed with surgery, patient is not a candidate for minor or major procedures, surgeon has updated the family on this. She is not a candidate just given how sick she is at this time 03/07/21: CT showed 10.2 x 6.9 x 12.7 cm fluid collection in the right abdomen of uncertain etiology, stable from 03/02/21 and new from 02/06/21. Patient received platelets transfusion yesterday. Abscess was drained by interventional radiology and drain was left in place for few days. Eventually drain was removed once the output diminished Continue antibiotics as above (5) Acute on chronic renal failure: Qualifiers: Acute renal failure type: unspecified Code(s): N17.9 - Acute kidney failure, unspecified; N18.9 - Chronic kidney disease, unspecified Status: Acute Assessment and Plan: Acute kidney injury over chronic kidney disease -significantly decreased urine output from nephrostomy tubes, creatinine rising, likely related to septic shock, hypotension, third-spacing, possible venous obstruction Patient is being seen by Nephrology and Urology at this time Nephrostomies tubes are in place with almost no urine output Given her overall condi
[2021-03-31 08:24] LABS: INR 1.6
[2021-03-31 08:26] LABS: Partial Thromboplastin Time 32.6 SECONDS (22.3-36.8)
[2021-03-31 08:27] LABS: Platelet Count Result 6 k/mm3 (150-375); Platelet Estimate Decreased (Adequate)
[2021-03-31 08:28] LABS: Burr Cells 2+ (NORMAL); Ovalocytes 1+ (NORMAL); Schistocytes 1+ (NORMAL)
[2021-03-31 08:35] LABS: Alanine Aminotransferase 184 U/L (4-35); Albumin Level 2.8 g/dL (3.5-5.1); Alkaline Phosphatase 89 U/L (38-126); Aspartate Amino Transferase 144 U/L (14-36); Bilirubin,Total 4.1 mg/dL (0.2-1.3); Blood Urea Nitrogen 91 mg/dL (7-17); Calcium 8.5 mg/dL (8.4-10.2); Carbon Dioxide < 5 mmol/L (22-30); Chloride 83 mmol/L (98-107); Estimated CRCL calculation 17 ml/min; Estimated Glomerular Filt Rate 15; Glucose 117 mg/dL (65-105); Sodium 124 mmol/L (137-145)
[2021-03-31 11:20] LABS: Glucose Point of Care 113 mg/dl (65-105)
--- NOTE | 2021-03-31 12:19 | PM.IMPN ---
Progress Note: A&P Assessment and Plan (1) Acute respiratory failure: Code(s): J96.00 - Acute respiratory failure, unspecified whether with hypoxia or hypercapnia Status: Acute Assessment and Plan: Acute respiratory failure likely related to metabolic acidosis, septic shock, acute kidney injury, volume overload congestive heart failure Intubated 03/26 Continue supportive care per family wishes (2) Shock: Code(s): R57.9 - Shock, unspecified Status: Acute Assessment and Plan: Shock -likely septic shock, hypovolemia, third-spacing, malnourishment, hypoalbuminemia -continue Levophed and titrate to maintain arterial pressures >70 mmHg for adequate renal and other end organ perfusion -Anuric with worsening creatinine and metabolic acidosis -lactic acid elevated -worsening LFTs -patient also has had blood in stools which could be related to ischemic bowel, coagulopathy, thrombocytopenia -03/25/2021:blood cultures growing gustavo 2/2 bottles The fungemia could be related to Port-A-Cath versus abdominal abscess. - CT scan abd/pelvis shows a left anti abdomen abscess with fluid collection 9.8 x 2.3 x 5.4 cm. Will start empiric antibiotic - zosyn -03/27 linezolid and Zosyn discontinued by infectious disease (3) Pneumonia: Qualifiers: Pneumonia type: due to unspecified organism Laterality: bilateral Code(s): J18.9 - Pneumonia, unspecified organism Status: Acute Assessment and Plan: Chest x-ray shows bilateral infiltrates and cardiomegaly -infectious disease following the patient (4) Abdominal abscess: Status: Resolved Assessment and Plan: 03/27/[address] scan of the abdomen and pelvis 1. 9.8 x 2.3 x 5.4 cm fluid collection in left anterior abdomen, which may be an abscess. 2. Stable peritoneal mass anterior to the rectum on the right, consistent with metastatic disease. 3. Moderate-sized right and small left pleural effusions. 4. Groundglass opacities in left lung upper lobe, consistent with atelectasis versus inflammation or edema. 5. Gallbladder distention, which may be secondary to fasting. Acalculus cholecystitis cannot be excluded. 03/07/21: CT showed 10.2 x 6.9 x 12.7 cm fluid collection in the right abdomen of uncertain etiology, stable from 03/02/21 and new from 02/06/21. Patient received platelets transfusion yesterday. Abscess was drained by interventional radiology and drain was left in place for few days. Eventually drain was removed once the output diminished (5) Acute on chronic renal failure: Qualifiers: Acute renal failure type: unspecified Code(s): N17.9 - Acute kidney failure, unspecified; N18.9 - Chronic kidney disease, unspecified Status: Acute Assessment and Plan: Acute kidney injury superimposed onchronic kidney disease -significantly decreased urine output from nephrostomy tubes, creatinine rising, likely related to septic shock, hypotension, third-spacing, possible venous obstruction (6) Bilateral ureteral obstruction: Code(s): N13.5 - Crossing vessel and stricture of ureter without hydronephrosis Status: Acute Assessment and Plan: Dr. Teran with urology following (7) Protein calorie malnutrition: Code(s): E46 - Unspecified protein-calorie malnutrition Status: Chronic Assessment and Plan: Secondary to metastatic cancer and ileus Patient was not eating much and also refused PEG tube and did not want NG TPN was stopped due to hypotension Unable to feed via GI tract due to ileus (8) Anasarca: Code(s): R60.1 - Generalized edema Status: Acute Assessment and Plan: Multifactorial likely secondary to low albumin venous obstruction and heart failure Hold diuretics at this time due to shock -continue on albumin (9) Anemia: Code(s): D64.9 - Anemia, unspecified Status: Acute Assessment and Plan: Secondary to cancer chr
[2021-03-31 16:30] LABS: Glucose Point of Care 82 mg/dl (65-105)
[2021-03-31 19:07] LABS: Hepatitis B Core Ab Total Nonreactive (Nonreactive)
[2021-03-31 19:59] LABS: Glucose Point of Care 89 mg/dl (65-105)
[2021-03-31] MEDS: MIDAZOLAM 100MG/NS 100ML(*CRX) 100 MG/100 ML BAG IV CONT (20:05)
[2021-03-31] MEDS: NOREPINEPHRINE 8 MG/D5W 250 ML 8 MG/250 ML BAG 33.75 MG IV CONT (22:10)
[2021-04-01] VITALS (54 sets, daily range): BP systolic 97–126; BP diastolic 60–80; PULSE 78–120; RESP 28; TEMP 35.4–37.1; O2SAT 92–100
[2021-04-01 00:59] LABS: Glucose Point of Care 97 mg/dl (65-105)
--- NOTE | 2021-04-01 01:39 | ECG_ITS ---
Measurements Intervals [place] Rate: 97 P: MT: 0 QRS: -53 QRSD: 135 T: 111 QT: 353 QTc: 450 Interpretive Statements ATRIAL FIBRILLATION LEFT BUNDLE BRANCH BLOCK LOW VOLTAGE- DIFFUSE LEADS BASELINE WANDER- V1, V3-V4 ABNORMAL ECG Electronically Signed On 04-01-2021 6:48:11 CDT by Arnulfo Zaragoza D.O.
[2021-04-01] MEDS: ALBUTEROL SULFATE NEB 2.5 MG/0.5 ML INH INHALATION ×3 (01:45→20:56)
[2021-04-01] MEDS: IPRATROPIUM BR 0.02% INH SOLN 0.5 MG/2.5 ML VIAL INHALATION ×3 (01:45→20:56)
[2021-04-01 04:21] LABS: Glucose Point of Care 103 mg/dl (65-105)
[2021-04-01] MEDS: CENTRAL LINE FLUSH 10 ML IV PUSH ×3 (05:33→21:41)
[2021-04-01] MEDS: HYDROCORTISONE SODIUM SUCCINATE 100 MG/2 ML VIAL IV PUSH ×3 (05:33→21:40)
[2021-04-01 05:35] LABS: Alveolar/Arterial O2 Gradient 70.6 mmHg; Base Excess ABG -20.2 mEq/l (+/-2.0); Carboxyhemoglobin 0.3 % THb (0-2.0); Fractional Inspired Oxygen 30 %; HCO3 ABG 7.1 mEq/l (22.0-26.0); Methemoglobin ABG 0.5 %THb (0-1.5); Oxygen Content ABG 9.7 %vol (16.0-22.0); Oxygen Saturation ABG 97.2 % (95.0-100.0); PO2 FiO2 Ratio Arterial Blood 3.93 %; Reduced Hemoglobin 3.2 %THb (0-5.0)
[2021-04-01 05:36] LABS: Immature Granulocyte Absolute 0.61 K/mm3 (0.00-0.031); Immature Granulocyte Percent A 8.3 % (0-0.5); Immature Platelet Fraction Pct 2.6 % (0.9-11.2); Lymphocytes Absolute Auto 0.36 K/mm3 (0.9-3.2); Lymphocytes Percent Auto 4.9 % (18.3-44.2); Mean Corpuscular HGB Conc 32.8 g/dl (32-36); Mean Corpuscular Hemoglobin 30.7 pg (26-34); Mean Corpuscular Volume 93.7 fl (80-100); Mean Platelet Volume 12.2 fl (7.4-10.4); Monocytes Absolute Auto 0.1 K/mm3 (0.1-0.6); Monocytes Percent Auto 0.7 % (2.6-8.5); Neutrophils Absolute Auto 6.3 K/mm3 (1.3-6.7); Neutrophils Percent Auto 86.1 % (45.5-73.1); Platelet Count Result 49 k/mm3 (150-375); Red Blood Count 2.05 M/mm3 (4.2-5.4); White Blood Count 7.3 K/mm3 (4.5-10.0)
[2021-04-01 05:37] LABS: PCO2 ABG 21.5 mmHg (35.0-45.0); pH ABG 7.135 (7.350-7.450)
[2021-04-01 05:38] LABS: Arterial Blood Gas Vent Mode CMV; Arterial Blood Gas Ventilator rate 28 /MIN; Device VENTILATOR; Modified Allen's Test Pass; Site Drawn RIGHT RADIAL
[2021-04-01 05:39] LABS: Arterial Blood Gas PEEP 5 cmH2O; Arterial Blood Gas Tidal Volume 400 ml
[2021-04-01] MEDS: SODIUM BICARBONATE 8.4% 150 MEQ in DEXTROSE 5% 1,000 ML 950 ML 50 ML IV CONT (05:52)
[2021-04-01 05:54] LABS: Blood Urea Nitrogen 95 mg/dL (7-17); Calcium 8.9 mg/dL (8.4-10.2); Carbon Dioxide < 5 mmol/L (22-30); Chloride 81 mmol/L (98-107); Glucose 102 mg/dL (65-105); Potassium 5.1 mmol/L (3.4-5.0); Sodium 123 mmol/L (137-145)
[2021-04-01 06:07] LABS: Hematocrit 19.2 % (37.0-47.0); Hemoglobin 6.3 g/dL (12.0-15.0)
[2021-04-01 06:12] LABS: Estimated CRCL calculation 19 ml/min; Estimated Glomerular Filt Rate 16; Hypochromasia 2+ (NORMAL); Platelet Estimate Decreased (Adequate)
[2021-04-01 06:13] LABS: Anisocytosis 1+ (NORMAL); Burr Cells 2+ (NORMAL); Ovalocytes 1+ (NORMAL); Schistocytes 1+ (NORMAL)
[2021-04-01] MEDS: ALBUTEROL SULFATE NEB 2.5 MG/0.5 ML INH 10 MG INHALATION (07:53)
[2021-04-01] MEDS: NOREPINEPHRINE 8 MG/D5W 250 ML 8 MG/250 ML BAG 20.63 MG IV CONT (08:08)
[2021-04-01] MEDS: SODIUM BICARBONATE 8.4% 50 MEQ/50 ML SYRINGE IV PUSH (08:09)
[2021-04-01] MEDS: DEXTROSE 50% 25 GM/50 ML SYRINGE IV PUSH (08:12)
[2021-04-01] MEDS: INSULIN HUMAN REGULAR (*BKC) 100 UNITS/ML 10 UNITS IV PUSH (08:14)
[2021-04-01] MEDS: SILVERGEL (ELTA) 45 ML 1 APPLIC TOPICAL (08:20)
[2021-04-01] MEDS: KETOROLAC 0.5% OP SOLN 5 ML BOTTLE 1 DROP RIGHT EYE (08:23)
[2021-04-01] MEDS: TOLNAFTATE 1% POWDER 45 GM BTL 1 APPLIC TOPICAL ×2 (08:27→21:41)
[2021-04-01] MEDS: PANTOPRAZOLE SODIUM IV 40 MG VIAL IV PUSH ×2 (08:28→21:40)
[2021-04-01 08:34] LABS: Glucose Point of Care 168 mg/dl (65-105)
--- NOTE | 2021-04-01 08:58 | P.PNINT_ITS ---
Progress Note: A&P Assessment and Plan (1) Acute respiratory failure: Code(s): J96.00 - Acute respiratory failure, unspecified whether with hypoxia or hypercapnia Status: Acute Assessment and Plan: Acute respiratory failure likely related to metabolic acidosis, septic shock, acute kidney injury, volume overload congestive heart failure -patient successfully intubated on 03/26/2021 a lengthy discussion with the family who requested continuing with all medical modalities to keep the patient alive. -x-ray reviewed, currently on 30% FiO2, peep of 5 -pH of 7.13, likely related to severe metabolic acidosis secondary to lactic acidosis, septic shock, uremia a ventilator adjusted, increased respiratory rate to compensate -continue bronchodilators (2) Shock: Code(s): R57.9 - Shock, unspecified Status: Acute Assessment and Plan: Shock -likely septic shock, hypovolemia, third-spacing, malnourishment, hypoalbuminemia -continue Levophed and titrate to maintain arterial pressures >70 mmHg for adequate renal and other end organ perfusion -Anuric with worsening creatinine and metabolic acidosis -lactic acid elevated -worsening LFTs -patient also has had blood in stools which could be related to ischemic bowel, coagulopathy, thrombocytopenia -03/25/2021:blood cultures growing gustavo 2/2 bottles, discussed with Dr. Canseco -infectious disease. Continue MICAFUNGIN The fungemia could be related to Port-A-Cath versus abdominal abscess. Infectious disease doctor stated if it is from the Port-A-Cath may not be resolved with medical treatment/antifungals. - CT scan abd/pelvis shows a left anti abdomen abscess with fluid collection 9.8 x 2.3 x 5.4 cm. Initiated Zosyn for empiric antibiotic rx -Patient is on Bicarb infusion at 50 mL/hour, s/p albumin -status post linezolid and Zosyn discontinued by infectious disease (3) Pneumonia: Qualifiers: Pneumonia type: due to unspecified organism Laterality: bilateral Code(s): J18.9 - Pneumonia, unspecified organism Status: Acute Assessment and Plan: Chest x-ray shows bilateral infiltrates and cardiomegaly -infectious disease following the patient (4) Abdominal abscess: Status: Resolved Assessment and Plan: 03/27/[address] scan of the abdomen and pelvis 1. 9.8 x 2.3 x 5.4 cm fluid collection in left anterior abdomen, which may be an abscess. 2. Stable peritoneal mass anterior to the rectum on the right, consistent with metastatic disease. 3. Moderate-sized right and small left pleural effusions. 4. Groundglass opacities in left lung upper lobe, consistent with atelectasis versus inflammation or edema. 5. Gallbladder distention, which may be secondary to fasting. Acalculus cholecystitis cannot be excluded. Discussed with surgery, patient is not a candidate for minor or major procedures, surgeon has updated the family on this. She is not a candidate just given how sick she is at this time 03/07/21: CT showed 10.2 x 6.9 x 12.7 cm fluid collection in the right abdomen of uncertain etiology, stable from 03/02/21 and new from 02/06/21. Patient received platelets transfusion yesterday. Abscess was drained by interventional radiology and drain was left in place for few days. Eventually drain was removed once the output diminished Continue antibiotics as above (5) Acute on chronic renal failure: Qualifiers: Acute renal failure type: unspecified Code(s): N17.9 - Acute kidney failure, unspecified; N18.9 - Chronic kidney disease, unspecified Status: Acute Assessment and Plan: Acute kidney inju
[2021-04-01] MEDS: MICAFUNGIN SODIUM 100 MG in SODIUM CHLORIDE 0.9% IV 100 ML IVPB (09:14)
[2021-04-01 12:19] LABS: Glucose Point of Care 103 mg/dl (65-105)
[2021-04-01] MEDS: SODIUM CHLORIDE 0.9% IV 250 ML 30 ML IV CONT ×2 (12:42→14:50)
--- NOTE | 2021-04-01 15:11 | PM.IMPN ---
Progress Note: A&P Assessment and Plan (1) Acute respiratory failure: Code(s): J96.00 - Acute respiratory failure, unspecified whether with hypoxia or hypercapnia Status: Acute Assessment and Plan: Acute respiratory failure likely related to metabolic acidosis, septic shock, acute kidney injury, volume overload congestive heart failure Intubated 03/26 Continue supportive care per family wishes 04/01/21 15:11 Patient remains on ventilator on CMV mode, since 03/26/21, see does have spontaneous breathing and gag reflex, patient is on bicarb drip pH 7.13 improving her severe metabolic acidosis secondary to lactic acidosis, septic shock, uremia ventilator adjusted by assistant housekeeping manager, prognosis is poor, patient family wished to continue present management, patient seen by assistant housekeeping manager and GI and appreciate (2) Shock: Code(s): R57.9 - Shock, unspecified Status: Acute Assessment and Plan: Shock -likely septic shock, hypovolemia, third-spacing, malnourishment, hypoalbuminemia -continue Levophed and titrate to maintain arterial pressures >70 mmHg for adequate renal and other end organ perfusion -Anuric with worsening creatinine and metabolic acidosis -lactic acid elevated -worsening LFTs -patient also has had blood in stools which could be related to ischemic bowel, coagulopathy, thrombocytopenia -03/25/2021:blood cultures growing gustavo 2/2 bottles The fungemia could be related to Port-A-Cath versus abdominal abscess. - CT scan abd/pelvis shows a left anti abdomen abscess with fluid collection 9.8 x 2.3 x 5.4 cm. Will start empiric antibiotic - zosyn -03/27 linezolid and Zosyn discontinued by infectious disease (3) Pneumonia: Qualifiers: Pneumonia type: due to unspecified organism Laterality: bilateral Code(s): J18.9 - Pneumonia, unspecified organism Status: Acute Assessment and Plan: Chest x-ray shows bilateral infiltrates and cardiomegaly -infectious disease following the patient (4) Abdominal abscess: Status: Resolved Assessment and Plan: 03/27/[address] scan of the abdomen and pelvis 1. 9.8 x 2.3 x 5.4 cm fluid collection in left anterior abdomen, which may be an abscess. 2. Stable peritoneal mass anterior to the rectum on the right, consistent with metastatic disease. 3. Moderate-sized right and small left pleural effusions. 4. Groundglass opacities in left lung upper lobe, consistent with atelectasis versus inflammation or edema. 5. Gallbladder distention, which may be secondary to fasting. Acalculus cholecystitis cannot be excluded. 03/07/21: CT showed 10.2 x 6.9 x 12.7 cm fluid collection in the right abdomen of uncertain etiology, stable from 03/02/21 and new from 02/06/21. Patient received platelets transfusion yesterday. Abscess was drained by interventional radiology and drain was left in place for few days. Eventually drain was removed once the output diminished (5) Acute on chronic renal failure: Qualifiers: Acute renal failure type: unspecified Code(s): N17.9 - Acute kidney failure, unspecified; N18.9 - Chronic kidney disease, unspecified Status: Acute Assessment and Plan: Acute kidney injury superimposed onchronic kidney disease -significantly decreased urine output from nephrostomy tubes, creatinine rising, likely related to septic shock, hypotension, third-spacing, possible venous obstruction (6) Bilateral ureteral obstruction: Code(s): N13.5 - Crossing vessel and stricture of ureter without hydronephrosis Status: Acute Assessment and Plan: Dr. Teran with urology following (7) Protein calorie malnutrition: Code(s): E46 - Unspecified protein-calorie malnutrition Status: Chronic Assessment and Plan: Secondary to metastatic cancer and ileus Patient was not eating much and also refused PEG tube and did not want NG TPN was stopped due to hypotension Unable to feed via GI
[2021-04-01 16:40] LABS: Glucose Point of Care 91 mg/dl (65-105)
[2021-04-02] VITALS (33 sets, daily range): BP systolic 89–123; BP diastolic 44–73; PULSE 74–106; RESP 28–103; TEMP 35.2–36.7; O2SAT 99–100
[2021-04-02] MEDS: NOREPINEPHRINE 8 MG/D5W 250 ML 8 MG/250 ML BAG 13.13 MG IV CONT
[2021-04-02 00:09] LABS: Glucose Point of Care 82 mg/dl (65-105)
[2021-04-02 00:09] LABS: Glucose Point of Care 96 mg/dl (65-105)
[2021-04-02] MEDS: ALBUTEROL SULFATE NEB 2.5 MG/0.5 ML INH INHALATION ×4 (01:57→20:18)
[2021-04-02] MEDS: IPRATROPIUM BR 0.02% INH SOLN 0.5 MG/2.5 ML VIAL INHALATION ×4 (01:57→20:17)
[2021-04-02] MEDS: SODIUM BICARBONATE 8.4% 150 MEQ in DEXTROSE 5% 1,000 ML 950 ML 50 ML IV CONT (04:00)
[2021-04-02 04:51] LABS: Alveolar/Arterial O2 Gradient 81.5 mmHg; Base Excess ABG -17.6 mEq/l (+/-2.0); Carboxyhemoglobin 0.3 % THb (0-2.0); Fractional Inspired Oxygen 30 %; HCO3 ABG 8.2 mEq/l (22.0-26.0); Methemoglobin ABG 0.4 %THb (0-1.5); Oxygen Content ABG 13.3 %vol (16.0-22.0); Oxygen Saturation ABG 97.2 % (95.0-100.0); Oxyhemoglobin 95.8 % THb (90.0-100.0); PO2 ABG 108.8 mmHg (80.0-100.0); PO2 FiO2 Ratio Arterial Blood 3.63 %; Reduced Hemoglobin 3.5 %THb (0-5.0); Total Hemoglobin 9.7 g/dL (12.0-18.0)
[2021-04-02 04:52] LABS: Device VENTILATOR; Modified Allen's Test Unable to perform; PCO2 ABG 20.1 mmHg (35.0-45.0); Site Drawn RIGHT RADIAL; pH ABG 7.226 (7.350-7.450)
[2021-04-02 04:53] LABS: Arterial Blood Gas PEEP 5 cmH2O; Arterial Blood Gas Tidal Volume 400 ml; Arterial Blood Gas Vent Mode CMV; Arterial Blood Gas Ventilator rate 28 /MIN
[2021-04-02 05:02] LABS: Basophils Absolute Auto 0.1 K/mm3 (0.0-0.1); Basophils Percent Auto 2.6 % (0.2-1.2); Hematocrit 25.6 % (37.0-47.0); Hemoglobin 8.4 g/dL (12.0-15.0); Immature Granulocyte Absolute 0.04 K/mm3 (0.00-0.031); Immature Granulocyte Percent A 0.9 % (0-0.5); Immature Platelet Fraction Pct 2.3 % (0.9-11.2); Lymphocytes Absolute Auto 0.23 K/mm3 (0.9-3.2); Lymphocytes Percent Auto 5.1 % (18.3-44.2); Mean Corpuscular HGB Conc 32.8 g/dl (32-36); Mean Corpuscular Hemoglobin 29.8 pg (26-34); Mean Corpuscular Volume 90.8 fl (80-100); Mean Platelet Volume 10.3 fl (7.4-10.4); Monocytes Absolute Auto 0.1 K/mm3 (0.1-0.6); Monocytes Percent Auto 2.4 % (2.6-8.5); Red Blood Count 2.82 M/mm3 (4.2-5.4); Red Cell Distribution Width 18.6 % (11.5-14.5); White Blood Count 4.5 K/mm3 (4.5-10.0)
[2021-04-02 05:14] LABS: Partial Thromboplastin Time 33.4 SECONDS (22.3-36.8)
[2021-04-02 05:18] LABS: Albumin Level 2.7 g/dL (3.5-5.1); Alkaline Phosphatase 96 U/L (38-126); Anion Gap 35 mmol/L (8-16); Aspartate Amino Transferase 78 U/L (14-36); Blood Urea Nitrogen 97 mg/dL (7-17); Calcium 8.7 mg/dL (8.4-10.2); Carbon Dioxide 8 mmol/L (22-30); Chloride 80 mmol/L (98-107); Glucose 78 mg/dL (65-105); Magnesium 1.7 mg/dL (1.6-2.3); Phosphorus 7.9 mg/dL (2.5-4.5); Potassium 4.9 mmol/L (3.4-5.0); Sodium 123 mmol/L (137-145)
[2021-04-02 05:25] LABS: Platelet Count Result 9 k/mm3 (150-375)
[2021-04-02 05:26] LABS: Anisocytosis 1+ (NORMAL); Crenated RBC 2+ (NORMAL); Platelet Estimate Decreased (Adequate)
[2021-04-02 05:33] LABS: Alanine Aminotransferase 120 U/L (4-35); Estimated CRCL calculation 19 ml/min; Estimated Glomerular Filt Rate 16
[2021-04-02 05:49] LABS: Lactic Acid Reflex 22.2 mmol/L (0.7-2.1)
[2021-04-02] MEDS: CENTRAL LINE FLUSH 10 ML IV PUSH ×3 (06:28→22:05)
[2021-04-02] MEDS: HYDROCORTISONE SODIUM SUCCINATE 100 MG/2 ML VIAL IV PUSH ×3 (06:28→22:04)
[2021-04-02 07:58] LABS: Reflex Lactic Acid Yes or No Add Lactic
[2021-04-02 09:32] LABS: Lactic Acid 20.5 mmol/L (0.7-2.1)
[2021-04-02] MEDS: PANTOPRAZOLE SODIUM IV 40 MG VIAL IV PUSH ×2 (09:43→20:37)
[2021-04-02] MEDS: KETOROLAC 0.5% OP SOLN 5 ML BOTTLE 1 DROP RIGHT EYE (09:43)
[2021-04-02] MEDS: SODIUM BICARBONATE 8.4% 50 MEQ/50 ML SYRINGE IV PUSH ×4 (09:46→20:43)
[2021-04-02] MEDS: TOLNAFTATE 1% POWDER 45 GM BTL 1 APPLIC TOPICAL ×2 (09:46→20:41)
--- NOTE | 2021-04-02 09:55 | WPDINTPN ---
Progress Note: A&P Assessment and Plan (1) Acute respiratory failure: Code(s): J96.00 - Acute respiratory failure, unspecified whether with hypoxia or hypercapnia Status: Acute Assessment and Plan: Acute respiratory failure likely related to metabolic acidosis, septic shock, acute kidney injury, volume overload congestive heart failure -patient successfully intubated on 03/26/2021 a lengthy discussion with the family who requested continuing with all medical modalities to keep the patient alive. -x-ray reviewed, currently on 30% FiO2, peep of 5 -pH of 7.13, likely related to severe metabolic acidosis secondary to lactic acidosis, septic shock, uremia a ventilator adjusted, increased respiratory rate to compensate - IVP bicarb added -continue bronchodilators (2) Shock: Code(s): R57.9 - Shock, unspecified Status: Acute Assessment and Plan: Shock -likely septic shock, hypovolemia, third-spacing, malnourishment, hypoalbuminemia -continue Levophed and titrate to maintain arterial pressures >70 mmHg for adequate renal and other end organ perfusion -Anuric with worsening creatinine and metabolic acidosis -lactic acid elevated -worsening LFTs -patient also has had blood in stools which could be related to ischemic bowel, coagulopathy, thrombocytopenia -03/25/2021:blood cultures growing gustavo 2/2 bottles, discussed with Dr. Canseco -infectious disease. Continue MICAFUNGIN The fungemia could be related to Port-A-Cath versus abdominal abscess. Infectious disease doctor stated if it is from the Port-A-Cath may not be resolved with medical treatment/antifungals. - CT scan abd/pelvis shows a left anti abdomen abscess with fluid collection 9.8 x 2.3 x 5.4 cm. Initiated Zosyn for empiric antibiotic rx -Patient is on Bicarb infusion at 50 mL/hour, s/p albumin -status post linezolid and Zosyn discontinued by infectious disease (3) Pneumonia: Qualifiers: Pneumonia type: due to unspecified organism Laterality: bilateral Code(s): J18.9 - Pneumonia, unspecified organism Status: Acute Assessment and Plan: Chest x-ray shows bilateral infiltrates and cardiomegaly -infectious disease following the patient (4) Abdominal abscess: Status: Resolved Assessment and Plan: 03/27/[address] scan of the abdomen and pelvis 1. 9.8 x 2.3 x 5.4 cm fluid collection in left anterior abdomen, which may be an abscess. 2. Stable peritoneal mass anterior to the rectum on the right, consistent with metastatic disease. 3. Moderate-sized right and small left pleural effusions. 4. Groundglass opacities in left lung upper lobe, consistent with atelectasis versus inflammation or edema. 5. Gallbladder distention, which may be secondary to fasting. Acalculus cholecystitis cannot be excluded. Discussed with surgery, patient is not a candidate for minor or major procedures, surgeon has updated the family on this. She is not a candidate just given how sick she is at this time 03/07/21: CT showed 10.2 x 6.9 x 12.7 cm fluid collection in the right abdomen of uncertain etiology, stable from 03/02/21 and new from 02/06/21. Patient received platelets transfusion yesterday. Abscess was drained by interventional radiology and drain was left in place for few days. Eventually drain was removed once the output diminished Continue antibiotics as above (5) Acute on chronic renal failure: Qualifiers: Acute renal failure type: unspecified Code(s): N17.9 - Acute kidney failure, unspecified; N18.9 - Chronic kidney disease, unspecified Status: Acute Assessment and Plan: Acute kidney injury over chronic kidney disease -significantly decreased urine output from nephrostomy tubes, creatinine rising, likely related to septic shock, hypotension, third-spacing, possible venous obstruction Patient is being seen by Nephrology and Urology at this time Nephrostomies tubes are in place with almost no urine output
[2021-04-02] MEDS: SCOPOLAMINE 1.5 MG PATCH TRANSDERM (09:57)
[2021-04-02] MEDS: MICAFUNGIN SODIUM 100 MG in SODIUM CHLORIDE 0.9% IV 100 ML IVPB (09:59)
[2021-04-02 10:08] LABS: Glucose Point of Care 77 mg/dl (65-105)
[2021-04-02] MEDS: SILVERGEL (ELTA) 45 ML 1 APPLIC TOPICAL (10:55)
--- NOTE | 2021-04-02 11:30 | PCDIET ---
Nutrition Follow-Up Complete: Nutrition Diagnosis: Increased protein needs related to pressure ulcer as evidence by comprehensive wound assessment and needs of 94-110g of protein daily for wound healing. Nutrition Goal: Patient to meet estimated nutritional needs. Goal not met. Patient remains NPO. If condition would improve to allow nutrition support, consult RD for recommendations. Last recorded weight is 95.4 kg which is increased from last review. +I/O. Bowel Motility: Last documented BM on 03/30/21. Labs Reviewed: Platelets (9), Hgb (8.4), Hct (25.6), BUN (97), Cr (3.5), Na (123), Alb (2.7), Don Ca (8.94), Lactic Acid (22.2) Meds Noted: D5/150mEq Sodium Bicarbonate at 50mL/hr, Albuterol, Atrovent, Micafungin, Solu Cortef, Versed, Levophed, Vasopressin, Protonix, Zosyn, Scopolamine Additional Notes: Dressings to abdomen and coccyx. Nutrition Monitoring and Evaluation: Follow up in 3 days.
[2021-04-02 11:38] LABS: Glucose Point of Care 74 mg/dl (65-105)
--- NOTE | 2021-04-02 13:57 | P.PNIM_ITS ---
Progress Note: A&P Assessment and Plan (1) Acute respiratory failure: Code(s): J96.00 - Acute respiratory failure, unspecified whether with hypoxia or hypercapnia Status: Acute Assessment and Plan: Acute respiratory failure likely related to metabolic acidosis, septic shock, acute kidney injury, volume overload congestive heart failure Intubated 03/26 Continue supportive care per family wishes 04/01/21 15:11 Patient remains on ventilator on CMV mode, since 03/26/21, see does have spontaneous breathing and gag reflex, patient is on bicarb drip pH 7.13 improving her severe metabolic acidosis secondary to lactic acidosis, septic shock, uremia ventilator adjusted by automotive collision estimator, prognosis is poor, patient family wished to continue present management, patient seen by automotive collision estimator and GI and appreciate (2) Shock: Code(s): R57.9 - Shock, unspecified Status: Acute Assessment and Plan: Shock -likely septic shock, hypovolemia, third-spacing, malnourishment, hypoalbuminemia -continue Levophed and titrate to maintain arterial pressures >70 mmHg for adequ ate renal and other end organ perfusion -Anuric with worsening creatinine and metabolic acidosis -lactic acid elevated -worsening LFTs -patient also has had blood in stools which could be related to ischemic bowel, coagulopathy, thrombocytopenia -03/25/2021:blood cultures growing gustavo 2/2 bottles The fungemia could be related to Port-A-Cath versus abdominal abscess. - CT scan abd/pelvis shows a left anti abdomen abscess with fluid collection 9.8 x 2.3 x 5.4 cm. Will start empiric antibiotic - zosyn -03/27 linezolid and Zosyn discontinued by infectious disease (3) Pneumonia: Qualifiers: Pneumonia type: due to unspecified organism Laterality: bilateral Code(s): J18.9 - Pneumonia, unspecified organism Status: Acute Assessment and Plan: Chest x-ray shows bilateral infiltrates and cardiomegaly -infectious disease following the patient (4) Abdominal abscess: Status: Resolved Assessment and Plan: 03/27/[address] scan of the abdomen and pelvis 1. 9.8 x 2.3 x 5.4 cm fluid collection in left anterior abdomen, which may be an abscess. 2. Stable peritoneal mass anterior to the rectum on the right, consistent with metastatic disease. 3. Moderate-sized right and small left pleural effusions. 4. Groundglass opacities in left lung upper lobe, consistent with atelectasis versus inflammation or edema. 5. Gallbladder distention, which may be secondary to fasting. Acalculus cholecystitis cannot be excluded. 03/07/21: CT showed 10.2 x 6.9 x 12.7 cm fluid collection in the right abdomen of uncertain etiology, stable from 03/02/21 and new from 02/06/21. Patient received platelets transfusion yesterday. Abscess was drained by interventional radiology and drain was left in place for few days. Eventually drain was removed once the output diminished (5) Acute on chronic renal failure: Qualifiers: Acute renal failure type: unspecified Code(s): N17.9 - Acute kidney failure, unspecified; N18.9 - Chronic kidney disease, unspecified Status: Acute Assessment and Plan: Acute kidney injury superimposed onchronic kidney disease -significantly decreased urine output from nephrostomy tubes, creatinine rising, likely related to septic shock, hypotension, third-spacing, possible venous obstruction (6) Bilateral ureteral obstruction: Code(s): N13.5 - Crossing vessel and stricture of ureter without hydronephrosis Status: Acute Assessment and Plan: Dr. Teran with urology
[2021-04-02 17:28] LABS: Glucose Point of Care 68 mg/dl (65-105)
[2021-04-02 20:37] LABS: Glucose Point of Care 75 mg/dl (65-105)
[2021-04-03] VITALS (30 sets, daily range): BP systolic 90–108; BP diastolic 47–67; PULSE 70–88; RESP 28; TEMP 34.4–36.9; O2SAT 98–100
[2021-04-03] MEDS: SODIUM BICARBONATE 8.4% 150 MEQ in DEXTROSE 5% 1,000 ML 950 ML 50 ML IV CONT (00:06)
[2021-04-03 00:07] LABS: Glucose Point of Care 85 mg/dl (65-105)
[2021-04-03] MEDS: SODIUM BICARBONATE 8.4% 50 MEQ/50 ML SYRINGE IV PUSH ×6 (00:09→20:28)
[2021-04-03] MEDS: ALBUTEROL SULFATE NEB 2.5 MG/0.5 ML INH INHALATION ×4 (02:04→20:09)
[2021-04-03] MEDS: IPRATROPIUM BR 0.02% INH SOLN 0.5 MG/2.5 ML VIAL INHALATION ×4 (02:04→20:09)
[2021-04-03 04:35] LABS: Glucose Point of Care 73 mg/dl (65-105)
[2021-04-03] MEDS: NOREPINEPHRINE 8 MG/D5W 250 ML 8 MG/250 ML BAG 5.63 MG IV CONT (04:46)
[2021-04-03 05:27] LABS: Alveolar/Arterial O2 Gradient 66.4 mmHg; Base Excess ABG -12.6 mEq/l (+/-2.0); Fractional Inspired Oxygen 30 %; HCO3 ABG 10.6 mEq/l (22.0-26.0); Oxygen Content ABG 11.7 %vol (16.0-22.0); Oxygen Saturation ABG 98.6 % (95.0-100.0); Oxyhemoglobin 96.6 % THb (90.0-100.0); PO2 ABG 126.9 mmHg (80.0-100.0); PO2 FiO2 Ratio Arterial Blood 4.23 %; Total Hemoglobin 8.4 g/dL (12.0-18.0); pH ABG 7.399 (7.350-7.450)
[2021-04-03 05:29] LABS: Arterial Blood Gas Ventilator rate 28 /MIN; Device VENTILATOR; Modified Allen's Test Pass; PCO2 ABG 17.5 mmHg (35.0-45.0); Site Drawn RIGHT RADIAL
[2021-04-03 05:30] LABS: Arterial Blood Gas PEEP 5 cmH2O; Arterial Blood Gas Tidal Volume 400 ml; Arterial Blood Gas Vent Mode CMV
[2021-04-03] MEDS: HYDROCORTISONE SODIUM SUCCINATE 100 MG/2 ML VIAL IV PUSH ×3 (05:40→21:53)
[2021-04-03] MEDS: CENTRAL LINE FLUSH 10 ML IV PUSH ×3 (05:40→21:53)
[2021-04-03 06:34] LABS: Hematocrit 22.2 % (37.0-47.0); Hemoglobin 7.5 g/dL (12.0-15.0); Mean Corpuscular HGB Conc 33.8 g/dl (32-36); Mean Corpuscular Hemoglobin 30.4 pg (26-34); Mean Corpuscular Volume 89.9 fl (80-100); Mean Platelet Volume 11.8 fl (7.4-10.4); Platelet Count Result 54 k/mm3 (150-375); Red Blood Count 2.47 M/mm3 (4.2-5.4); Red Cell Distribution Width 18.2 % (11.5-14.5); White Blood Count 2.5 K/mm3 (4.5-10.0)
[2021-04-03 06:48] LABS: Anion Gap 36 mmol/L (8-16); Blood Urea Nitrogen 108 mg/dL (7-17); Calcium 9.1 mg/dL (8.4-10.2); Carbon Dioxide 11 mmol/L (22-30); Chloride 79 mmol/L (98-107); Glucose 78 mg/dL (65-105); Potassium 4.7 mmol/L (3.4-5.0); Sodium 126 mmol/L (137-145)
[2021-04-03 06:50] LABS: Estimated CRCL calculation 19 ml/min; Estimated Glomerular Filt Rate 16
[2021-04-03 07:01] LABS: Lactic Acid Reflex 22.8 mmol/L (0.7-2.1)
[2021-04-03] MEDS: MICAFUNGIN SODIUM 100 MG in SODIUM CHLORIDE 0.9% IV 100 ML IVPB (07:59)
--- NOTE | 2021-04-03 08:38 | PM.IMPN ---
Progress Note: A&P Assessment and Plan (1) Acute respiratory failure: Code(s): J96.00 - Acute respiratory failure, unspecified whether with hypoxia or hypercapnia Status: Acute Assessment and Plan: Acute respiratory failure likely related to metabolic acidosis, septic shock, acute kidney injury, volume overload congestive heart failure Intubated 03/26. Continue supportive care per family wishes (2) Shock: Code(s): R57.9 - Shock, unspecified Status: Acute Assessment and Plan: Shock -likely septic shock, hypovolemia, third-spacing, malnourishment, hypoalbuminemia -continue Levophed and titrate to maintain arterial pressures >70 mmHg for adequate renal and other end organ perfusion -Anuric with worsening creatinine and metabolic acidosis -lactic acid elevated to 23 - futile care (3) Pneumonia: Qualifiers: Pneumonia type: due to unspecified organism Laterality: bilateral Code(s): J18.9 - Pneumonia, unspecified organism Status: Acute Assessment and Plan: Chest x-ray shows bilateral infiltrates and cardiomegaly -infectious disease following the patient (4) Abdominal abscess: Status: Resolved Assessment and Plan: 03/07/21: CT showed 10.2 x 6.9 x 12.7 cm fluid collection in the right abdomen of uncertain etiology, stable from 03/02/21 and new from 02/06/21. Patient received platelets transfusion yesterday. Abscess was drained by interventional radiology and drain was left in place for few days. Eventually drain was removed once the output diminished. 03/27/[address] scan of the abdomen and pelvis: 1. 9.8 x 2.3 x 5.4 cm fluid collection in left anterior abdomen, which may be an abscess. 2. Stable peritoneal mass anterior to the rectum on the right, consistent with metastatic disease. Continue antibiotics and antifungal (5) Acute on chronic renal failure: Qualifiers: Acute renal failure type: unspecified Code(s): N17.9 - Acute kidney failure, unspecified; N18.9 - Chronic kidney disease, unspecified Status: Acute Assessment and Plan: Acute kidney injury superimposed on chronic kidney disease -significantly decreased urine output from nephrostomy tubes, creatinine rising, likely related to septic shock, hypotension, third-spacing, possible venous obstruction. Nephrology stating HD would be futile. Will discuss with family again about hospice. (6) Bilateral ureteral obstruction: Code(s): N13.5 - Crossing vessel and stricture of ureter without hydronephrosis Status: Acute Assessment and Plan: Poor output. In JOSE. Not a candidate for HD per nephrology. Dr. Teran with urology following (7) Protein calorie malnutrition: Code(s): E46 - Unspecified protein-calorie malnutrition Status: Chronic Assessment and Plan: Secondary to metastatic cancer and ileus. Patient was not eating much and also refused PEG tube and did not want NG. TPN was stopped. Unable to feed via GI tract due to ileus. (8) Anasarca: Code(s): R60.1 - Generalized edema Status: Acute Assessment and Plan: Multifactorial likely secondary to low albumin venous obstruction, JOSE and heart failure. Hold diuretics at this time due to shock. (9) Anemia: Code(s): D64.9 - Anemia, unspecified Status: Acute Assessment and Plan: Secondary to cancer chronic kidney disease and now with GI bleed, could be related to bone marrow suppression as well. She has received several blood products over the course of this hospital stay. Continue to monitor hemoglobin (10) Thrombocytopenia: Code(s): D69.6 - Thrombocytopenia, unspecified Status: Acute Assessment and Plan: Thrombocytopenia felt to be multifactorial, related to uremia, bone marrow suppression, septic shock medication, malignancy. Patient has received multiple transfusions of platelets during this hospi
[2021-04-03 08:42] LABS: Glucose Point of Care 72 mg/dl (65-105)
[2021-04-03] MEDS: SILVERGEL (ELTA) 45 ML 1 APPLIC TOPICAL (08:43)
[2021-04-03] MEDS: TOLNAFTATE 1% POWDER 45 GM BTL 1 APPLIC TOPICAL ×2 (08:43→20:26)
[2021-04-03] MEDS: KETOROLAC 0.5% OP SOLN 5 ML BOTTLE 1 DROP RIGHT EYE (08:44)
[2021-04-03] MEDS: PANTOPRAZOLE SODIUM IV 40 MG VIAL IV PUSH ×2 (08:49→20:26)
--- NOTE | 2021-04-03 08:56 | WPDINTPN ---
Progress Note: A&P Assessment and Plan (1) Acute respiratory failure: Code(s): J96.00 - Acute respiratory failure, unspecified whether with hypoxia or hypercapnia Status: Acute Assessment and Plan: Acute respiratory failure likely related to metabolic acidosis, septic shock, acute kidney injury, volume overload congestive heart failure -patient successfully intubated on 03/26/2021 a lengthy discussion with the family who requested continuing with all medical modalities to keep the patient alive. -x-ray reviewed, currently on 30% FiO2, peep of 5. Advance ET tube by 3 cm -Severe metabolic acidosis secondary to lactic acidosis, septic shock, uremia a ventilator adjusted, increased respiratory rate to compensate - IVP bicarb to be continued (2) Shock: Code(s): R57.9 - Shock, unspecified Status: Acute Assessment and Plan: Shock -likely septic shock, hypovolemia, third-spacing, malnourishment, hypoalbuminemia -continue Levophed and titrate to maintain arterial pressures >70 mmHg for adequate renal and other end organ perfusion -Anuric with worsening creatinine and metabolic acidosis -lactic acid elevated -worsening LFTs -patient also has had blood in stools which could be related to ischemic bowel, coagulopathy, thrombocytopenia -03/25/2021:blood cultures growing gustavo 2/2 bottles, discussed with Dr. Canseco -infectious disease. Continue MICAFUNGIN The fungemia could be related to Port-A-Cath versus abdominal abscess. Infectious disease doctor stated if it is from the Port-A-Cath may not be resolved with medical treatment/antifungals. - CT scan abd/pelvis shows a left anti abdomen abscess with fluid collection 9.8 x 2.3 x 5.4 cm. Initiated Zosyn for empiric antibiotic rx -Patient is on Bicarb infusion at 50 mL/hour, s/p albumin -status post linezolid and Zosyn discontinued by infectious disease -on Zosyn and micafungin (3) Abdominal abscess: Status: Resolved Assessment and Plan: 03/27/[address] scan of the abdomen and pelvis 1. 9.8 x 2.3 x 5.4 cm fluid collection in left anterior abdomen, which may be an abscess. 2. Stable peritoneal mass anterior to the rectum on the right, consistent with metastatic disease. 3. Moderate-sized right and small left pleural effusions. 4. Groundglass opacities in left lung upper lobe, consistent with atelectasis versus inflammation or edema. 5. Gallbladder distention, which may be secondary to fasting. Acalculus cholecystitis cannot be excluded. Discussed with surgery, patient is not a candidate for minor or major procedures, surgeon has updated the family on this. She is not a candidate just given how sick she is at this time 03/07/21: CT showed 10.2 x 6.9 x 12.7 cm fluid collection in the right abdomen of uncertain etiology, stable from 03/02/21 and new from 02/06/21. Patient received platelets transfusion yesterday. Abscess was drained by interventional radiology and drain was left in place for few days. Eventually drain was removed once the output diminished Continue antibiotics as above (4) Acute on chronic renal failure: Qualifiers: Acute renal failure type: unspecified Code(s): N17.9 - Acute kidney failure, unspecified; N18.9 - Chronic kidney disease, unspecified Status: Acute Assessment and Plan: Acute kidney injury over chronic kidney disease -significantly decreased urine output from nephrostomy tubes, creatinine rising, likely related to septic shock, hypotension, third-spacing, possible venous obstruction Patient is being seen by Nephrology and Urology at this time Nephrostomies tubes are in place with almost no urine output Given her overall condition multiorgan failure along with decreased platelets and metastatic colon CA, discussed extensively with surgery to extensively discussed it with the family, patient is not a candidate for minor or major surgical procedures at this time including placement of dialysis catheter and dialys
[2021-04-03 09:31] LABS: Reflex Lactic Acid Yes or No Add Lactic
[2021-04-03 10:52] LABS: Lactic Acid 22.5 mmol/L (0.7-2.1)
--- NOTE | 2021-04-03 11:00 | PCDIET ---
ICU Rounding Note: Patient remains NPO with no significant changes reported. Last recorded weight is 100.2kg which is further increased from last review. +I/O. Bowel Motility: Last documented BM on 03/30/21. Labs Reviewed: Hgb (7.5), Hct (22.2), BUN (108), Cr (3.50), Na (126) Meds Noted: Zosyn, Pred Forte, Versed, Levophed, Protonix, Albuterol, Solu Cortef, Atrovent, Xopenex, Micafungin, Vasopressin, D5/150mEq Sodium Bicarbonate at 50mL/hr Additional Notes: No change in skin, per RN. Following daily in ICU rounds. Assessing/reassessing every 3 days.
[2021-04-03 13:00] LABS: Glucose Point of Care 70 mg/dl (65-105)
[2021-04-03 16:15] LABS: Glucose Point of Care 76 mg/dl (65-105)
[2021-04-03 20:25] LABS: Glucose Point of Care 74 mg/dl (65-105)
[2021-04-04] VITALS (31 sets, daily range): BP systolic 88–144; BP diastolic 48–79; PULSE 62–117; RESP 28; TEMP 35.9–36.6; O2SAT 94–100
[2021-04-04 00:14] LABS: Glucose Point of Care 84 mg/dl (65-105)
[2021-04-04] MEDS: SODIUM BICARBONATE 8.4% 50 MEQ/50 ML SYRINGE IV PUSH ×6 (00:14→20:53)
[2021-04-04] MEDS: ALBUTEROL SULFATE NEB 2.5 MG/0.5 ML INH INHALATION ×4 (01:56→20:57)
[2021-04-04] MEDS: IPRATROPIUM BR 0.02% INH SOLN 0.5 MG/2.5 ML VIAL INHALATION ×4 (01:56→20:57)
[2021-04-04] MEDS: SODIUM BICARBONATE 8.4% 150 MEQ in DEXTROSE 5% 1,000 ML 950 ML 50 ML IV CONT (02:00)
[2021-04-04 04:24] LABS: Glucose Point of Care 78 mg/dl (65-105)
[2021-04-04 04:41] LABS: Hemoglobin 7.3 g/dL (12.0-15.0); Mean Corpuscular HGB Conc 34.8 g/dl (32-36); Mean Corpuscular Hemoglobin 30.7 pg (26-34); Mean Corpuscular Volume 88.2 fl (80-100); Red Blood Count 2.38 M/mm3 (4.2-5.4); Red Cell Distribution Width 17.4 % (11.5-14.5)
[2021-04-04 04:57] LABS: Anion Gap 39 mmol/L (8-16); Blood Urea Nitrogen 113 mg/dL (7-17); Calcium 8.8 mg/dL (8.4-10.2); Carbon Dioxide 11 mmol/L (22-30); Chloride 78 mmol/L (98-107); Glucose 74 mg/dL (65-105); Magnesium 1.6 mg/dL (1.6-2.3); Potassium 4.7 mmol/L (3.4-5.0); Sodium 128 mmol/L (137-145)
[2021-04-04 05:02] LABS: Estimated CRCL calculation 20 ml/min; Estimated Glomerular Filt Rate 17
[2021-04-04] MEDS: HYDROCORTISONE SODIUM SUCCINATE 100 MG/2 ML VIAL IV PUSH ×3 (05:25→21:14)
[2021-04-04] MEDS: CENTRAL LINE FLUSH 10 ML IV PUSH ×3 (05:25→21:14)
[2021-04-04 05:37] LABS: Platelet Count Result 23 k/mm3 (150-375); White Blood Count 1.5 K/mm3 (4.5-10.0)
[2021-04-04] MEDS: NOREPINEPHRINE 8 MG/D5W 250 ML 8 MG/250 ML BAG 1.88 MG IV CONT (06:26)
--- NOTE | 2021-04-04 08:17 | P.PNINT_ITS ---
Progress Note: A&P Assessment and Plan (1) Acute respiratory failure: Code(s): J96.00 - Acute respiratory failure, unspecified whether with hypoxia or hypercapnia Status: Acute Assessment and Plan: Acute respiratory failure likely related to metabolic acidosis, septic shock, acute kidney injury, volume overload congestive heart failure -patient successfully intubated on 03/26/2021 a lengthy discussion with the family who requested continuing with all medical modalities to keep the patient alive. -x-ray reviewed, currently on 30% FiO2, peep of 5. -Severe metabolic acidosis secondary to lactic acidosis, septic shock, uremia a ventilator adjusted, increased respiratory rate to compensate - IVP bicarb to be continued (2) Shock: Code(s): R57.9 - Shock, unspecified Status: Acute Assessment and Plan: Shock -likely septic shock, hypovolemia, third-spacing, malnourishment, hypoalbuminemia -continue Levophed and titrate to maintain arterial pressures >70 mmHg for adequate renal and other end organ perfusion -Anuric with worsening creatinine and metabolic acidosis -lactic acid elevated -worsening LFTs -patient also has had blood in stools which could be related to ischemic bowel, coagulopathy, thrombocytopenia -03/25/2021:blood cultures growing gustavo 2/2 bottles, discussed with Dr. Canseco -infectious disease. Continue MICAFUNGIN The fungemia could be related to Port-A-Cath versus abdominal abscess. Infectious disease doctor stated if it is from the Port-A-Cath may not be resolved with medical treatment/antifungals. - CT scan abd/pelvis shows a left anti abdomen abscess with fluid collection 9.8 x 2.3 x 5.4 cm. Initiated Zosyn for empiric antibiotic rx -Patient is on Bicarb infusion at 50 mL/hour, s/p albumin -status post linezolid and Zosyn discontinued by infectious disease -on Zosyn and micafungin (3) Abdominal abscess: Status: Resolved Assessment and Plan: 03/27/[address] scan of the abdomen and pelvis 1. 9.8 x 2.3 x 5.4 cm fluid collection in left anterior abdomen, which may be an abscess. 2. Stable peritoneal mass anterior to the rectum on the right, consistent with metastatic disease. 3. Moderate-sized right and small left pleural effusions. 4. Groundglass opacities in left lung upper lobe, consistent with atelectasis versus inflammation or edema. 5. Gallbladder distention, which may be secondary to fasting. Acalculus cholecystitis cannot be excluded. Discussed with surgery, patient is not a candidate for minor or major procedures, surgeon has updated the family on this. She is not a candidate just given how sick she is at this time 03/07/21: CT showed 10.2 x 6.9 x 12.7 cm fluid collection in the right abdomen of uncertain etiology, stable from 03/02/21 and new from 02/06/21. Patient received platelets transfusion yesterday. Abscess was drained by interventional radiology and drain was left in place for few days. Eventually drain was removed once the output diminished Continue antibiotics as above (4) Acute on chronic renal failure: Qualifiers: Acute renal failure type: unspecified Code(s): N17.9 - Acute kidney failure, unspecified; N18.9 - Chronic kidney disease, unspecified Status: Acute Assessment and Plan: Acute kidney injury over chronic kidney disease -significantly decreased urine output from nephrostomy tubes, creatinine rising, likely related to septic shock, hypotension, third-spacing, possible venous obstruction Patient is being seen by Nephrology and Urology at this time Nephrostomies tubes are in place with negligible urine output Given her overall condition mul
--- NOTE | 2021-04-04 09:22 | PM.IMPN ---
Progress Note: A&P Assessment and Plan (1) Acute respiratory failure: Code(s): J96.00 - Acute respiratory failure, unspecified whether with hypoxia or hypercapnia Status: Acute Assessment and Plan: Acute respiratory failure likely related to metabolic acidosis, septic shock, acute kidney injury, volume overload congestive heart failure. Intubated 03/26. Continue supportive care per family wishes. (2) Shock: Code(s): R57.9 - Shock, unspecified Status: Acute Assessment and Plan: Shock likely septic shock, hypovolemia from third-spacing, malnourishment, and hypoalbuminemia. Continue Levophed and titrate to maintain arterial pressures >70 mmHg for adequate renal and other end organ perfusion. Anuric with worsening creatinine and metabolic acidosis but no plans for HD. Lactic acid remains elevated to 23 related to poor perfusion and acidosis. [place] this is futile care and comfort recommended to family by multiple providers. (3) Pneumonia: Qualifiers: Pneumonia type: due to unspecified organism Laterality: bilateral Code(s): J18.9 - Pneumonia, unspecified organism Status: Acute Assessment and Plan: Chest x-ray shows bilateral infiltrates and cardiomegaly. Infectious disease following the patient. Continue current abx and anti-fungal. (4) Abdominal abscess: Status: Resolved Assessment and Plan: 03/07/21: CT showed 10.2 x 6.9 x 12.7 cm fluid collection in the right abdomen of uncertain etiology, stable from 03/02/21 and new from 02/06/21. Abscess was drained by interventional radiology and drain was left in place for few days. Eventually drain was removed once the output diminished. 03/27/[address] scan of the abdomen and pelvis showing 9.8 x 2.3 x 5.4 cm fluid collection in left anterior abdomen, which may be an abscess. Continue antibiotics and antifungal. No plans for intervention at this time (5) Acute on chronic renal failure: Qualifiers: Acute renal failure type: unspecified Code(s): N17.9 - Acute kidney failure, unspecified; N18.9 - Chronic kidney disease, unspecified Status: Acute Assessment and Plan: Acute kidney injury superimposed on chronic kidney disease -significantly decreased urine output from nephrostomy tubes with elevated Cr. Most likely related to septic shock, hypotension, third-spacing, possible nephrostomy tube obstruction. General surgery stated that they could not place a HD catheter safely and Nephrology stating HD would be futile. Discussed with family last night but the dtr voices understanding that the patient is dying and that further intervention is futile. They are hoping for a miracle and feel 'bullied' into making the patient hospice. Explained that is not the case but that we feel that care should be changed to comfort measures. No change in curent (6) Bilateral ureteral obstruction: Code(s): N13.5 - Crossing vessel and stricture of ureter without hydronephrosis Status: Acute Assessment and Plan: Poor urine output. Not a candidate for HD per nephrology. Urology following (7) Protein calorie malnutrition: Code(s): E46 - Unspecified protein-calorie malnutrition Status: Chronic Assessment and Plan: Secondary to metastatic cancer and ileus. Patient was not eating much and also refused PEG tube initially and did not want NG. TPN was stopped. Unable to feed via GI tract due to ileus. (8) Anasarca: Code(s): R60.1 - Generalized edema Status: Acute Assessment and Plan: Multifactorial likely secondary to low albumin, venous obstruction, JOSE and heart failure. Hold diuretics at this time due to shock and JOSE. No plans to perform HD. (9) Anemia: Code(s): D64.9 - Anemia, unspecified Status: Acute Assessment and Plan: Secondary to cancer and chronic kidney disease and now with GI bleed. Co
[2021-04-04] MEDS: MAGNESIUM SULF 2 GM/WATER 50ML 2 GM/50 ML BAG IVPB (09:38)
[2021-04-04] MEDS: MICAFUNGIN SODIUM 100 MG in SODIUM CHLORIDE 0.9% IV 100 ML IVPB (09:39)
[2021-04-04] MEDS: TOLNAFTATE 1% POWDER 45 GM BTL 1 APPLIC TOPICAL ×2 (09:43→20:54)
[2021-04-04] MEDS: PANTOPRAZOLE SODIUM IV 40 MG VIAL IV PUSH ×2 (09:43→20:51)
[2021-04-04] MEDS: SILVERGEL (ELTA) 45 ML 1 APPLIC TOPICAL (09:43)
[2021-04-04] MEDS: KETOROLAC 0.5% OP SOLN 5 ML BOTTLE 1 DROP RIGHT EYE (10:28)
--- NOTE | 2021-04-04 10:50 | PCDIET ---
ICU Rounding Note: Patient remains NPO. Platelet count 23 today. Last recorded weight is 105.9kg which is increased from last review. +I/O. Bowel Motility: Last documented BM on 03/30/21. Labs Reviewed: WBC (1.5), Hgb (7.3), Hct (21.0), BUN (113), Cr (3.3), Na (128) Meds Noted: Albuterol, Atrovent, Zosyn, D5/150mEq Sodium Bicarbonate at 50mL/hr, Solu Cortef, Micafungin, Magnesium Sulfate, Versed, Levophed, Protonix Additional Notes: Dressings to abdomen and coccyx. Following daily in ICU rounds. Assessing/reassessing every 3 days.
[2021-04-04 12:36] LABS: Glucose Point of Care 101 mg/dl (65-105)
[2021-04-04 17:00] LABS: Glucose Point of Care 94 mg/dl (65-105)
[2021-04-04 21:04] LABS: Glucose Point of Care 98 mg/dl (65-105)
[2021-04-05] VITALS (42 sets, daily range): BP systolic 72–128; BP diastolic 40–69; PULSE 61–91; RESP 28; TEMP 34.2–36.9; O2SAT 94–100
[2021-04-05] MEDS: SODIUM BICARBONATE 8.4% 50 MEQ/50 ML SYRINGE IV PUSH ×6 (01:02→20:33)
[2021-04-05 01:23] LABS: Glucose Point of Care 111 mg/dl (65-105)
[2021-04-05] MEDS: IPRATROPIUM BR 0.02% INH SOLN 0.5 MG/2.5 ML VIAL INHALATION ×4 (03:09→20:51)
[2021-04-05] MEDS: ALBUTEROL SULFATE NEB 2.5 MG/0.5 ML INH INHALATION ×4 (03:09→20:51)
[2021-04-05] MEDS: SODIUM BICARBONATE 8.4% 150 MEQ in DEXTROSE 5% 1,000 ML 950 ML 50 ML IV CONT (04:32)
[2021-04-05 04:56] LABS: Glucose Point of Care 105 mg/dl (65-105)
[2021-04-05] MEDS: CENTRAL LINE FLUSH 10 ML IV PUSH ×2 (06:19→13:00)
[2021-04-05] MEDS: HYDROCORTISONE SODIUM SUCCINATE 100 MG/2 ML VIAL IV PUSH ×3 (06:19→20:54)
[2021-04-05 06:30] LABS: Hemoglobin 7.1 g/dL (12.0-15.0); Immature Platelet Fraction Pct 2.6 % (0.9-11.2); Mean Corpuscular Hemoglobin 30.5 pg (26-34); Mean Corpuscular Volume 87.1 fl (80-100); Mean Platelet Volume 11.8 fl (7.4-10.4); Platelet Count Result 37 k/mm3 (150-375); Red Blood Count 2.33 M/mm3 (4.2-5.4); Red Cell Distribution Width 17.2 % (11.5-14.5)
[2021-04-05 06:34] LABS: White Blood Count 1.7 K/mm3 (4.5-10.0)
[2021-04-05 06:35] LABS: Hematocrit 20.3 % (37.0-47.0)
[2021-04-05 06:52] LABS: Anion Gap 39 mmol/L (8-16); Blood Urea Nitrogen 115 mg/dL (7-17); Carbon Dioxide 15 mmol/L (22-30); Chloride 76 mmol/L (98-107); Glucose 107 mg/dL (65-105); Magnesium 1.9 mg/dL (1.6-2.3); Potassium 4.5 mmol/L (3.4-5.0); Sodium 130 mmol/L (137-145)
[2021-04-05 06:55] LABS: Estimated CRCL calculation 19 ml/min; Estimated Glomerular Filt Rate 16
[2021-04-05] MEDS: PANTOPRAZOLE SODIUM IV 40 MG VIAL IV PUSH ×2 (08:22→20:34)
[2021-04-05] MEDS: MICAFUNGIN SODIUM 100 MG in SODIUM CHLORIDE 0.9% IV 100 ML IVPB (08:24)
[2021-04-05] MEDS: KETOROLAC 0.5% OP SOLN 5 ML BOTTLE 1 DROP RIGHT EYE (08:25)
[2021-04-05] MEDS: SCOPOLAMINE 1.5 MG PATCH TRANSDERM (08:27)
[2021-04-05] MEDS: TOLNAFTATE 1% POWDER 45 GM BTL 1 APPLIC TOPICAL ×2 (08:27→20:35)
[2021-04-05] MEDS: DEXTROSE 10% 1,000 ML 25 ML IV CONT (08:28)
[2021-04-05] MEDS: SILVERGEL (ELTA) 45 ML 1 APPLIC TOPICAL (08:28)
--- NOTE | 2021-04-05 09:25 | WPDINTPN ---
Progress Note: A&P Assessment and Plan (1) Acute respiratory failure: Code(s): J96.00 - Acute respiratory failure, unspecified whether with hypoxia or hypercapnia Status: Acute Assessment and Plan: Acute respiratory failure likely related to metabolic acidosis, septic shock, acute kidney injury, volume overload congestive heart failure -patient successfully intubated on 03/26/2021 a lengthy discussion with the family who requested continuing with all medical modalities to keep the patient alive. -x-ray reviewed, currently on 30% FiO2, peep of 5. -Severe metabolic acidosis secondary to lactic acidosis, septic shock, uremia a ventilator adjusted, increased respiratory rate to compensate - IVP bicarb to be continued (2) Shock: Code(s): R57.9 - Shock, unspecified Status: Acute Assessment and Plan: Shock -likely septic shock, hypovolemia, third-spacing, malnourishment, hypoalbuminemia -continue Levophed and titrate to maintain arterial pressures >70 mmHg for adequate renal and other end organ perfusion -Anuric with worsening creatinine and metabolic acidosis -lactic acid elevated -worsening LFTs -patient also has had blood in stools which could be related to ischemic bowel, coagulopathy, thrombocytopenia -03/25/2021:blood cultures growing gustavo 2/2 bottles, discussed with Dr. Canseco -infectious disease. Continue MICAFUNGIN The fungemia could be related to Port-A-Cath versus abdominal abscess. Infectious disease doctor stated if it is from the Port-A-Cath may not be resolved with medical treatment/antifungals. - CT scan abd/pelvis shows a left anti abdomen abscess with fluid collection 9.8 x 2.3 x 5.4 cm. Initiated Zosyn for empiric antibiotic rx -Patient is on Bicarb infusion at 50 mL/hour, s/p albumin -status post linezolid and Zosyn discontinued by infectious disease -on Zosyn and micafungin (3) Abdominal abscess: Status: Resolved Assessment and Plan: 03/27/[address] scan of the abdomen and pelvis 1. 9.8 x 2.3 x 5.4 cm fluid collection in left anterior abdomen, which may be an abscess. 2. Stable peritoneal mass anterior to the rectum on the right, consistent with metastatic disease. 3. Moderate-sized right and small left pleural effusions. 4. Groundglass opacities in left lung upper lobe, consistent with atelectasis versus inflammation or edema. 5. Gallbladder distention, which may be secondary to fasting. Acalculus cholecystitis cannot be excluded. Discussed with surgery, patient is not a candidate for minor or major procedures, surgeon has updated the family on this. She is not a candidate just given how sick she is at this time 03/07/21: CT showed 10.2 x 6.9 x 12.7 cm fluid collection in the right abdomen of uncertain etiology, stable from 03/02/21 and new from 02/06/21. Patient received platelets transfusion yesterday. Abscess was drained by interventional radiology and drain was left in place for few days. Eventually drain was removed once the output diminished Continue antibiotics as above (4) Acute on chronic renal failure: Qualifiers: Acute renal failure type: unspecified Code(s): N17.9 - Acute kidney failure, unspecified; N18.9 - Chronic kidney disease, unspecified Status: Acute Assessment and Plan: Acute kidney injury over chronic kidney disease -significantly decreased urine output from nephrostomy tubes, creatinine rising, likely related to septic shock, hypotension, third-spacing, possible venous obstruction Patient is being seen by Nephrology and Urology at this time Nephrostomies tubes are in place with negligible urine output Nephrology has recommended against hemodialysis. Surgery also does not want to place a dialysis catheter Given her overall condition multiorgan failure along with decreased platelets and metastatic colon CA, discussed extensively with surgery to extensively discussed it with the family, patient is not a candidate for minor or major s
[2021-04-05 10:13] LABS: Add Urine Microscopic? YES; Appearance Urine Cloudy (Clear); Bacteria Urine 3+ /hpf; Bilirubin Urine Negative (Negative); Blood Urine 2+ (Negative); Glucose Urine UA 1+ mg/dL (Negative); Ketones Urine 1+ mg/dL (Negative); Leukocyte Esterase Ur Trace LEU/UL (Negative); Nitrate Urine Negative (Negative); Protein Urine 1+ mg/dL (Negative); RBC Urine >75 /hpf (0-2); Specific Grav Ur 1.028 (1.001-1.035); Urobilinogen Urine Negative mg/dL (<2.0); WBC Clumps Urine Present /HPF; WBC Urine >75 /hpf
--- NOTE | 2021-04-05 10:39 | PCDIET ---
Nutrition Follow-Up Complete: Nutrition Diagnosis: Increased protein needs related to pressure ulcer as evidence by comprehensive wound assessment and needs of 94-110g of protein daily for wound healing Nutrition Goal: Patient to meet estimated nutritional needs Goal not met. Last recorded weight is 106.7 kg which is further increased from last review. Bowel Motility: Last documented BM on 03/30/21. Labs Reviewed: WBC (1.7), Hgb (7.1), Hct (20.3), Glu (107), BUN (115), Cr (3.5), Na (130), Ca (8.0) Meds Noted: Albuterol, Solu Cortef, Atrovent, Micafungin, Levophed, Protonix, Zosyn, Scopolamine, Vasopressin Additional Notes: Dressings to coccyx and abdomen. Will continue to monitor with same goal. Nutrition Monitoring and Evaluation: Follow up every 3 days.
[2021-04-05 11:08] LABS: Glucose Point of Care 106 mg/dl (65-105)
[2021-04-05 11:11] LABS: Color Urine Dark Red (Yellow)
[2021-04-05 12:17] LABS: Glucose Point of Care 109 mg/dl (65-105)
--- NOTE | 2021-04-05 14:10 | PM.IMPN ---
Progress Note: A&P Assessment and Plan (1) Acute respiratory failure: Code(s): J96.00 - Acute respiratory failure, unspecified whether with hypoxia or hypercapnia Status: Acute Assessment and Plan: Acute respiratory failure likely related to metabolic acidosis, septic shock, acute kidney injury, volume overload and/or congestive heart failure. Intubated 03/26. Continue supportive care per family wishes. (2) Shock: Code(s): R57.9 - Shock, unspecified Status: Acute Assessment and Plan: Shock likely septic shock, hypovolemia from third-spacing, malnourishment, and/or hypoalbuminemia. Continue Levophed and titrate to maintain arterial pressures >70 mmHg for adequate renal and other end organ perfusion. Anuric with worsening creatinine and metabolic acidosis but no plans for HD. Lactic acid remains elevated to 23 related to poor perfusion and acidosis. [place] to be futile care and comfort recommended to family by multiple providers. (3) Pneumonia: Qualifiers: Pneumonia type: due to unspecified organism Laterality: bilateral Code(s): J18.9 - Pneumonia, unspecified organism Status: Acute Assessment and Plan: Chest x-ray shows bilateral infiltrates and cardiomegaly. Infectious disease following the patient. Continue current abx and anti-fungal. (4) Abdominal abscess: Status: Resolved Assessment and Plan: CT of the Abd/Pelvis 03/07/21 showing 10.2 x 6.9 x 12.7 cm fluid collection in the right abdomen of uncertain etiology, stable from 03/02/21 and new from 02/06/21. Abscess was drained by interventional radiology and drain was left in place for few days. Eventually drain was removed once the output diminished. Repeat CT scan of the abdomen and pelvis 03/27/21 showing 9.8 x 2.3 x 5.4 cm fluid collection in left anterior abdomen, which may be an abscess. Continue antibiotics and antifungal. No plans for intervention at this time (5) Acute on chronic renal failure: Qualifiers: Acute renal failure type: unspecified Code(s): N17.9 - Acute kidney failure, unspecified; N18.9 - Chronic kidney disease, unspecified Status: Acute Assessment and Plan: Acute kidney injury superimposed on chronic kidney disease - significantly decreased urine output from nephrostomy tubes with elevated Cr. Most likely related to septic shock, hypotension, third-spacing, possible nephrostomy tube obstruction. General surgery stated that they could not place a HD catheter safely and Nephrology stating HD would be futile. Discussed with family; dtr voices understanding that the patient is dying and that further intervention is futile. They are hoping for a miracle. Continue to monitor (6) Bilateral ureteral obstruction: Code(s): N13.5 - Crossing vessel and stricture of ureter without hydronephrosis Status: Acute Assessment and Plan: Poor urine output. Not a candidate for HD per nephrology. Urology following (7) Protein calorie malnutrition: Code(s): E46 - Unspecified protein-calorie malnutrition Status: Chronic Assessment and Plan: Secondary to metastatic cancer and ileus. Patient was not eating much and also refused PEG tube initially and did not want NG. TPN was stopped. Unable to feed via GI tract due to ileus. (8) Anasarca: Code(s): R60.1 - Generalized edema Status: Acute Assessment and Plan: Multifactorial likely secondary to low albumin, venous obstruction, JOSE and/or heart failure. Diuretics on hold at this time due to shock and JOSE. No plans to perform HD. (9) Anemia: Code(s): D64.9 - Anemia, unspecified Status: Acute Assessment and Plan: Secondary to cancer and chronic kidney disease and now with GI bleed. Consider related to bone marrow suppression as well. She has received several blood products over the course of this hospital stay. Hgb
[2021-04-05] MEDS: NOREPINEPHRINE 8 MG/D5W 250 ML 8 MG/250 ML BAG 13.13 MG IV CONT (14:45)
[2021-04-05 16:24] LABS: Glucose Point of Care 111 mg/dl (65-105)
[2021-04-05 20:11] LABS: Glucose Point of Care 105 mg/dl (65-105)
[2021-04-06] VITALS (52 sets, daily range): BP systolic 91–125; BP diastolic 50–88; PULSE 69–109; RESP 28; TEMP 35.5–36.4; O2SAT 93–100
[2021-04-06] MEDS: SODIUM BICARBONATE 8.4% 50 MEQ/50 ML SYRINGE IV PUSH ×6 (00:44→20:37)
[2021-04-06 00:50] LABS: Glucose Point of Care 106 mg/dl (65-105)
[2021-04-06] MEDS: IPRATROPIUM BR 0.02% INH SOLN 0.5 MG/2.5 ML VIAL INHALATION (02:18)
[2021-04-06] MEDS: ALBUTEROL SULFATE NEB 2.5 MG/0.5 ML INH INHALATION (02:18)
[2021-04-06 03:50] LABS: Glucose Point of Care 107 mg/dl (65-105)
[2021-04-06 04:14] LABS: Hemoglobin 7.2 g/dL (12.0-15.0); Mean Corpuscular HGB Conc 35.1 g/dl (32-36); Mean Corpuscular Hemoglobin 30.9 pg (26-34); Mean Platelet Volume 10.6 fl (7.4-10.4); Platelet Count Result 61 k/mm3 (150-375); Red Blood Count 2.33 M/mm3 (4.2-5.4); Red Cell Distribution Width 16.9 % (11.5-14.5)
[2021-04-06 04:20] LABS: Hematocrit 20.5 % (37.0-47.0)
[2021-04-06 04:32] LABS: Alveolar/Arterial O2 Gradient 116.1 mmHg; Fractional Inspired Oxygen 30 %; HCO3 ABG 15.7 mEq/l (22.0-26.0); Oxygen Content ABG 11.4 %vol (16.0-22.0); Oxygen Saturation ABG 95.5 % (95.0-100.0); Oxyhemoglobin 92.1 % THb (90.0-100.0); PO2 ABG 71.1 mmHg (80.0-100.0); PO2 FiO2 Ratio Arterial Blood 2.37 %; Total Hemoglobin 8.7 g/dL (12.0-18.0); pH ABG 7.458 (7.350-7.450)
[2021-04-06 04:33] LABS: Arterial Blood Gas Ventilator rate 28 /MIN; Device VENTILATOR; Modified Allen's Test Pass; PCO2 ABG 22.7 mmHg (35.0-45.0); Site Drawn LEFT RADIAL
[2021-04-06 04:34] LABS: Arterial Blood Gas PEEP 5 cmH2O; Arterial Blood Gas Tidal Volume 400 ml; Arterial Blood Gas Vent Mode CMV
[2021-04-06 04:41] LABS: Anion Gap 41 mmol/L (8-16); Calcium 7.5 mg/dL (8.4-10.2); Carbon Dioxide 15 mmol/L (22-30); Chloride 76 mmol/L (98-107); Estimated CRCL calculation 19 ml/min; Estimated Glomerular Filt Rate 16; Glucose 122 mg/dL (65-105); Magnesium 1.8 mg/dL (1.6-2.3); Potassium 4.5 mmol/L (3.4-5.0); Sodium 132 mmol/L (137-145)
[2021-04-06] MEDS: HYDROCORTISONE SODIUM SUCCINATE 100 MG/2 ML VIAL IV PUSH ×3 (04:53→20:39)
[2021-04-06 04:56] LABS: Blood Urea Nitrogen 122 mg/dL (7-17)
[2021-04-06 08:22] LABS: Glucose Point of Care 112 mg/dl (65-105)
[2021-04-06] MEDS: KETOROLAC 0.5% OP SOLN 5 ML BOTTLE 1 DROP RIGHT EYE (08:40)
[2021-04-06] MEDS: MICAFUNGIN SODIUM 100 MG in SODIUM CHLORIDE 0.9% IV 100 ML IVPB (08:45)
[2021-04-06] MEDS: SILVERGEL (ELTA) 45 ML 1 APPLIC TOPICAL (08:46)
[2021-04-06] MEDS: TOLNAFTATE 1% POWDER 45 GM BTL 1 APPLIC TOPICAL ×2 (08:46→20:38)
[2021-04-06] MEDS: PANTOPRAZOLE SODIUM IV 40 MG VIAL IV PUSH ×2 (08:46→20:38)
[2021-04-06 11:35] LABS: Glucose Point of Care 110 mg/dl (65-105)
[2021-04-06] MEDS: NOREPINEPHRINE 8 MG/D5W 250 ML 8 MG/250 ML BAG 11.25 MG IV CONT (15:14)
--- NOTE | 2021-04-06 15:30 | P.PNIM_ITS ---
Progress Note: A&P Assessment and Plan (1) Acute respiratory failure: Code(s): J96.00 - Acute respiratory failure, unspecified whether with hypoxia or hypercapnia Status: Acute Assessment and Plan: Discussed with ICU MD poor prognosis - Interval history: Acute respiratory failure likely related to metabolic acidosis, septic shock, acute kidney injury, volume overload and/or congestive heart failure. Intubated 03/26. Continue supportive care per family wishes. (2) Shock: Code(s): R57.9 - Shock, unspecified Status: Acute Assessment and Plan: Interval history:Shock likely septic shock, hypovolemia from third-spacing, malnourishment, and/or hypoalbuminemia. (3) Pneumonia: Qualifiers: Pneumonia type: due to unspecified organism Laterality: bilateral Code(s): J18.9 - Pneumonia, unspecified organism Status: Acute Assessment and Plan: Interval history:Chest x-ray shows bilateral infiltrates and cardiomegaly. Infectious disease following the patient. Continue current abx and anti-fungal. (4) Abdominal abscess: Status: Resolved Assessment and Plan: Interval history,CT of the Abd/Pelvis 03/07/21 showing 10.2 x 6.9 x 12.7 cm fluid collection in the right abdomen of uncertain etiology, stable from 03/02/21 and new from 02/06/21. Abscess was drained by interventional radiology and drain was left in place for few days. Eventually drain was removed once the output diminished. Repeat CT scan of the abdomen and pelvis 03/27/21 showing 9.8 x 2.3 x 5.4 cm fluid collection in left anterior abdomen, which may be an abscess. Continue antibiotics and antifungal. (5) Acute on chronic renal failure: Qualifiers: Acute renal failure type: unspecified Code(s): N17.9 - Acute kidney failure, unspecified; N18.9 - Chronic kidney disease, unspecified Status: Acute Assessment and Plan: Interval history,Acute kidney injury superimposed on chronic kidney disease - significantly decreased urine output from nephrostomy tubes with elevated Cr. Most likely related to septic shock, hypotension, third-spacing, possible nephrostomy tube obstruction. General surgery stated that they could not place a HD catheter safely and Nephrology stating HD would be futile. (6) Bilateral ureteral obstruction: Code(s): N13.5 - Crossing vessel and stricture of ureter without hydronephrosis Status: Acute Assessment and Plan: Interval history,Poor urine output. Not a candidate for HD per nephrology. Urology following (7) Protein calorie malnutrition: Code(s): E46 - Unspecified protein-calorie malnutrition Status: Chronic Assessment and Plan: Interval history,Secondary to metastatic cancer and ileus. Patient was not eating much and also refused PEG tube initially and did not want NG. TPN was stopped. Unable to feed via GI tract due to ileus. (8) Anasarca: Code(s): R60.1 - Generalized edema Status: Acute Assessment and Plan: Interval history,Multifactorial likely secondary to low albumin, venous obstruction, JOSE and/or heart failure. Diuretics on hold at this time due to shock and JOSE. No plans to perform HD. (9) Anemia: Code(s): D64.9 - Anemia, unspecified Status: Acute Assessment and Plan: Interval history,Secondary to cancer and chronic kidney disease and now with GI bleed. Consider related to bone marrow suppression as well. She has received several blood products over the course of this hospital stay. Hgb 7
[2021-04-06 16:54] LABS: Glucose Point of Care 104 mg/dl (65-105)
[2021-04-06 21:06] LABS: Glucose Point of Care 116 mg/dl (65-105)
[2021-04-07] VITALS (36 sets, daily range): BP systolic 74–121; BP diastolic 41–97; PULSE 65–85; RESP 11–28; TEMP 35.6–36.2; O2SAT 94–100
[2021-04-07 00:01] LABS: Glucose Point of Care 125 mg/dl (65-105)
[2021-04-07] MEDS: SODIUM BICARBONATE 8.4% 50 MEQ/50 ML SYRINGE IV PUSH ×6 (00:11→21:49)
[2021-04-07] MEDS: DEXTROSE 10% 1,000 ML 25 ML IV CONT (03:35)
[2021-04-07 04:48] LABS: Glucose Point of Care 121 mg/dl (65-105)
[2021-04-07 06:13] LABS: Mean Corpuscular HGB Conc 35.4 g/dl (32-36); Mean Corpuscular Hemoglobin 30.5 pg (26-34); Mean Corpuscular Volume 86.3 fl (80-100); Mean Platelet Volume 11.7 fl (7.4-10.4); Red Blood Count 2.26 M/mm3 (4.2-5.4); Red Cell Distribution Width 16.8 % (11.5-14.5); White Blood Count 3.7 K/mm3 (4.5-10.0)
[2021-04-07 06:15] LABS: Hematocrit 19.5 % (37.0-47.0); Hemoglobin 6.9 g/dL (12.0-15.0); Platelet Count Result 16 k/mm3 (150-375)
[2021-04-07] MEDS: HYDROCORTISONE SODIUM SUCCINATE 100 MG/2 ML VIAL IV PUSH ×3 (06:23→21:42)
[2021-04-07 06:32] LABS: Anion Gap 39 mmol/L (8-16); Calcium 6.8 mg/dL (8.4-10.2); Carbon Dioxide 17 mmol/L (22-30); Chloride 77 mmol/L (98-107); Estimated CRCL calculation 20 ml/min; Estimated Glomerular Filt Rate 17; Glucose 137 mg/dL (65-105); Magnesium 1.7 mg/dL (1.6-2.3); Potassium 4.3 mmol/L (3.4-5.0); Sodium 133 mmol/L (137-145)
[2021-04-07] MEDS: CALCIUM GLUC 1,000 MG/NS 50 ML 1,000 MG/50 ML BAG 100 MG IVPB (08:42)
[2021-04-07] MEDS: MAGNESIUM SULF 1 GM/D5W 100 ML 1 GM/100 ML BAG IVPB (08:42)
[2021-04-07 09:02] LABS: Glucose Point of Care 121 mg/dl (65-105)
[2021-04-07] MEDS: SILVERGEL (ELTA) 45 ML 1 APPLIC TOPICAL (09:02)
[2021-04-07] MEDS: TOLNAFTATE 1% POWDER 45 GM BTL 1 APPLIC TOPICAL ×2 (09:02→21:43)
[2021-04-07] MEDS: PANTOPRAZOLE SODIUM IV 40 MG VIAL IV PUSH ×2 (09:03→21:42)
[2021-04-07] MEDS: MICAFUNGIN SODIUM 100 MG in SODIUM CHLORIDE 0.9% IV 100 ML IVPB (09:11)
[2021-04-07 09:40] LABS: Blood Urea Nitrogen 127 mg/dL (7-17)
[2021-04-07] MEDS: SODIUM CHLORIDE 0.9% IV 250 ML 30 ML IV CONT (12:37)
[2021-04-07 14:00] LABS: Glucose Point of Care 109 mg/dl (65-105)
--- NOTE | 2021-04-07 16:12 | PM.IMPN ---
Progress Note: A&P Assessment and Plan (1) Acute respiratory failure: Code(s): J96.00 - Acute respiratory failure, unspecified whether with hypoxia or hypercapnia Status: Acute Assessment and Plan: Discussed with ICU MD poor prognosis - Interval history: Acute respiratory failure likely related to metabolic acidosis, septic shock, acute kidney injury, volume overload and/or congestive heart failure. Intubated 03/26. Continue supportive care per family wishes. (2) Shock: Code(s): R57.9 - Shock, unspecified Status: Acute Assessment and Plan: Interval history:Shock likely septic shock, hypovolemia from third-spacing, malnourishment, and/or hypoalbuminemia. (3) Pneumonia: Qualifiers: Pneumonia type: due to unspecified organism Laterality: bilateral Code(s): J18.9 - Pneumonia, unspecified organism Status: Acute Assessment and Plan: Interval history:Chest x-ray shows bilateral infiltrates and cardiomegaly. Infectious disease following the patient. Continue current abx and anti-fungal. (4) Abdominal abscess: Status: Resolved Assessment and Plan: Interval history,CT of the Abd/Pelvis 03/07/21 showing 10.2 x 6.9 x 12.7 cm fluid collection in the right abdomen of uncertain etiology, stable from 03/02/21 and new from 02/06/21. Abscess was drained by interventional radiology and drain was left in place for few days. Eventually drain was removed once the output diminished. Repeat CT scan of the abdomen and pelvis 03/27/21 showing 9.8 x 2.3 x 5.4 cm fluid collection in left anterior abdomen, which may be an abscess. Continue antibiotics and antifungal. (5) Acute on chronic renal failure: Qualifiers: Acute renal failure type: unspecified Code(s): N17.9 - Acute kidney failure, unspecified; N18.9 - Chronic kidney disease, unspecified Status: Acute Assessment and Plan: Interval history,Acute kidney injury superimposed on chronic kidney disease - significantly decreased urine output from nephrostomy tubes with elevated Cr. Most likely related to septic shock, hypotension, third-spacing, possible nephrostomy tube obstruction. General surgery stated that they could not place a HD catheter safely and Nephrology stating HD would be futile. (6) Bilateral ureteral obstruction: Code(s): N13.5 - Crossing vessel and stricture of ureter without hydronephrosis Status: Acute Assessment and Plan: Interval history,Poor urine output. Not a candidate for HD per nephrology. Urology following (7) Protein calorie malnutrition: Code(s): E46 - Unspecified protein-calorie malnutrition Status: Chronic Assessment and Plan: Interval history,Secondary to metastatic cancer and ileus. Patient was not eating much and also refused PEG tube initially and did not want NG. TPN was stopped. Unable to feed via GI tract due to ileus. (8) Anasarca: Code(s): R60.1 - Generalized edema Status: Acute Assessment and Plan: Interval history,Multifactorial likely secondary to low albumin, venous obstruction, JOSE and/or heart failure. Diuretics on hold at this time due to shock and JOSE. No plans to perform HD. (9) Anemia: Code(s): D64.9 - Anemia, unspecified Status: Acute Assessment and Plan: Interval history,Secondary to cancer and chronic kidney disease and now with GI bleed. Consider related to bone marrow suppression as well. She has received several blood products over the course of this hospital stay. sp blood transfusion this morning (10) Thrombocytopenia: Code(s): D69.6 - Thrombocytopenia, unspecified Status: Acute Assessment and Plan: Interval history,Thrombocytopenia felt to be multifactorial, related to uremia, bone marrow suppression, septic shock, malignancy and medications. Patient has received multiple transfusions of platelets duri
[2021-04-07 17:21] LABS: Glucose Point of Care 135 mg/dl (65-105)
[2021-04-07] MEDS: NOREPINEPHRINE 8 MG/D5W 250 ML 8 MG/250 ML BAG 7.5 MG IV CONT (21:40)
[2021-04-07 21:41] LABS: Glucose Point of Care 130 mg/dl (65-105)
[2021-04-08] VITALS (30 sets, daily range): BP systolic 74–134; BP diastolic 54–92; PULSE 28–85; RESP 13–28; TEMP 35.5–36.5; O2SAT 86–100
[2021-04-08] MEDS: SODIUM BICARBONATE 8.4% 50 MEQ/50 ML SYRINGE IV PUSH ×7 (06:13→23:38)
[2021-04-08] MEDS: HYDROCORTISONE SODIUM SUCCINATE 100 MG/2 ML VIAL IV PUSH ×3 (06:21→21:40)
[2021-04-08 06:28] LABS: Hemoglobin 7.8 g/dL (12.0-15.0); Immature Platelet Fraction Pct 4.6 % (0.9-11.2); Mean Corpuscular HGB Conc 35.5 g/dl (32-36); Mean Corpuscular Volume 84.6 fl (80-100); Mean Platelet Volume 10.5 fl (7.4-10.4); Red Cell Distribution Width 16.1 % (11.5-14.5); White Blood Count 3.1 K/mm3 (4.5-10.0)
[2021-04-08 06:29] LABS: Glucose Point of Care 120 mg/dl (65-105)
[2021-04-08 06:34] LABS: Platelet Count Result 4 k/mm3 (150-375)
[2021-04-08 06:36] LABS: Anion Gap 39 mmol/L (8-16); Calcium 6.8 mg/dL (8.4-10.2); Carbon Dioxide 20 mmol/L (22-30); Chloride 75 mmol/L (98-107); Glucose 142 mg/dL (65-105); Magnesium 1.9 mg/dL (1.6-2.3); Potassium 4.4 mmol/L (3.4-5.0); Sodium 134 mmol/L (137-145)
[2021-04-08 06:41] LABS: Estimated CRCL calculation 20 ml/min; Estimated Glomerular Filt Rate 17
[2021-04-08 07:53] LABS: Blood Urea Nitrogen 130 mg/dL (7-17)
[2021-04-08 08:11] LABS: Glucose Point of Care 125 mg/dl (65-105)
[2021-04-08] MEDS: TOLNAFTATE 1% POWDER 45 GM BTL 1 APPLIC TOPICAL ×2 (08:11→20:40)
[2021-04-08] MEDS: SILVERGEL (ELTA) 45 ML 1 APPLIC TOPICAL (08:11)
[2021-04-08] MEDS: PANTOPRAZOLE SODIUM IV 40 MG VIAL IV PUSH ×2 (08:11→21:40)
[2021-04-08] MEDS: SCOPOLAMINE 1.5 MG PATCH TRANSDERM (08:12)
[2021-04-08] MEDS: MICAFUNGIN SODIUM 100 MG in SODIUM CHLORIDE 0.9% IV 100 ML IVPB (08:13)
[2021-04-08 12:15] LABS: Glucose Point of Care 129 mg/dl (65-105)
--- NOTE | 2021-04-08 12:51 | PCDIET ---
Nutrition Follow-Up Complete: Nutrition Diagnosis: Increased protein needs related to pressure ulcer as evidenced by comprehensive wound assessment and needs of 94-110g of protein daily for wound healing Nutrition Goal: Patient to meet estimated nutritional needs. Goal not met. Last recorded weight is 108 kg which is further increased. +I/O. Bowel Motility: Last BM on 04/06/21 x 1. Labs Reviewed: Platelets (4), Hgb (7.8), Hct (22.0), Glu (125), BUN (130), Cr (3.4), Na (134), Ca (6.8) Meds Noted: Albuterol, Atrovent, Levophed, Protonix, Zosyn, Solu Cortef, Xopenex, Pred Forte, Novolog, Micafungin, Vasopressin Additional Notes: Patient to receive additional transfusions today. Nutrition Monitoring and Evaluation: Follow up every 3 days.
[2021-04-08] MEDS: SALINE LOCK FLUSH 10 ML IV PUSH ×2 (14:49→20:42)
--- NOTE | 2021-04-08 15:34 | PM.IMPN ---
Progress Note: A&P Assessment and Plan (1) Acute respiratory failure: Code(s): J96.00 - Acute respiratory failure, unspecified whether with hypoxia or hypercapnia Status: Acute Assessment and Plan: Acute respiratory failure likely related to metabolic acidosis, septic shock, acute kidney injury, volume overload and/or congestive heart failure. Intubated 03/26. Continue supportive care per family wishes. (2) Shock: Code(s): R57.9 - Shock, unspecified Status: Acute Assessment and Plan: Shock likely septic shock, hypovolemia from third-spacing, malnourishment, and/or hypoalbuminemia. Continue Levophed and titrate to maintain arterial pressures >70 mmHg for adequate renal and other end organ perfusion. Anuric with worsening creatinine and metabolic acidosis but no plans for HD. Lactic acid elevated to 23 related to poor perfusion and acidosis but no longer checking this. [place] to be futile care and comfort recommended to family by multiple providers. (3) Pneumonia: Qualifiers: Laterality: bilateral Pneumonia type: due to unspecified organism Code(s): J18.9 - Pneumonia, unspecified organism Status: Acute Assessment and Plan: Chest x-ray shows bilateral infiltrates and cardiomegaly. Infectious disease following the patient. Continue current abx and anti-fungal for now. (4) Abdominal abscess: Status: Resolved Assessment and Plan: CT of the Abd/Pelvis 03/07/21 showing 10.2 x 6.9 x 12.7 cm fluid collection in the right abdomen of uncertain etiology, stable from 03/02/21 and new from 02/06/21. Abscess was drained by interventional radiology and drain was left in place for few days. Eventually drain was removed once the output diminished. Repeat CT scan of the abdomen and pelvis 03/27/21 showing 9.8 x 2.3 x 5.4 cm fluid collection in left anterior abdomen, which may be an abscess. We are continuing antibiotics and antifungal but to what end. No plans for intervention at this time (5) Acute on chronic renal failure: Qualifiers: Acute renal failure type: unspecified Code(s): N17.9 - Acute kidney failure, unspecified; N18.9 - Chronic kidney disease, unspecified Status: Acute Assessment and Plan: Acute kidney injury superimposed on chronic kidney disease - significantly decreased urine output from nephrostomy tubes with elevated Cr. Most likely related to septic shock, hypotension, third-spacing, possible nephrostomy tube obstruction. General surgery stated that they could not place a HD catheter safely and Nephrology stating HD would be futile. Discussed with family multiple times. Dtr voices understanding that the patient is dying and that further intervention is futile. They are hoping for a miracle. Continue to monitor (6) Bilateral ureteral obstruction: Code(s): N13.5 - Crossing vessel and stricture of ureter without hydronephrosis Status: Acute Assessment and Plan: Poor urine output. Not a candidate for HD per nephrology. Urology following (7) Protein calorie malnutrition: Code(s): E46 - Unspecified protein-calorie malnutrition Status: Chronic Assessment and Plan: Secondary to metastatic cancer and ileus. Patient was not eating much and also refused PEG tube initially and did not want NG. TPN was stopped. Unable to feed via GI tract due to ileus and GI bleed. (8) Anasarca: Code(s): R60.1 - Generalized edema Status: Acute Assessment and Plan: Multifactorial likely secondary to low albumin, venous obstruction, JOSE and/or heart failure. Diuretics on hold at this time due to shock and JOSE. No plans to perform HD. (9) Anemia: Code(s): D64.9 - Anemia, unspecified Status: Acute Assessment and Plan: Secondary to cancer and chronic kidney disease and now with GI bleed. Consider related to bone marrow suppression as well. S
[2021-04-08 15:49] LABS: Glucose Point of Care 125 mg/dl (65-105)
[2021-04-08] MEDS: NOREPINEPHRINE 8 MG/D5W 250 ML 8 MG/250 ML BAG 15 MG IV CONT (18:03)
[2021-04-08 20:59] LABS: Glucose Point of Care 114 mg/dl (65-105)
[2021-04-08] MEDS: DEXTROSE 10% 1,000 ML 25 ML IV CONT (23:10)
[2021-04-08 23:43] LABS: Glucose Point of Care 123 mg/dl (65-105)
[2021-04-09] VITALS (26 sets, daily range): BP systolic 92–110; BP diastolic 55–70; PULSE 15–78; RESP 28; TEMP 35.3–36.1; O2SAT 33–100
[2021-04-09] MEDS: SODIUM BICARBONATE 8.4% 50 MEQ/50 ML SYRINGE IV PUSH ×4 (03:56→16:18)
[2021-04-09 04:00] LABS: Glucose Point of Care 128 mg/dl (65-105)
[2021-04-09] MEDS: HYDROCORTISONE SODIUM SUCCINATE 100 MG/2 ML VIAL IV PUSH ×2 (05:34→14:26)
[2021-04-09] MEDS: SALINE LOCK FLUSH 10 ML IV PUSH ×2 (05:34→14:26)
--- NOTE | 2021-04-09 08:25 | WPDINTPN ---
Progress Note: A&P Assessment and Plan (1) Acute respiratory failure: Code(s): J96.00 - Acute respiratory failure, unspecified whether with hypoxia or hypercapnia Status: Acute Assessment and Plan: Acute respiratory failure likely related to metabolic acidosis, septic shock, acute kidney injury, volume overload congestive heart failure -patient successfully intubated on 03/26/2021 a lengthy discussion with the family who requested continuing with all medical modalities to keep the patient alive. -x-ray reviewed, currently on 35% FiO2, peep of 5. -Severe metabolic acidosis secondary to lactic acidosis, septic shock, uremia a ventilator adjusted, increased respiratory rate to compensate - IVP bicarb to be continued -in normal circumstances patient is at a point where she would be a candidate for tracheostomy but considering patient's current condition and prognosis, tracheostomy would not change prognosis, outcome or benefit patient in any way or form. (2) Shock: Code(s): R57.9 - Shock, unspecified Status: Acute Assessment and Plan: Shock -likely septic shock, hypovolemia, third-spacing, malnourishment, hypoalbuminemia -continue Levophed and titrate to maintain arterial pressures >70 mmHg for adequate renal and other end organ perfusion -Anuric with worsening creatinine and metabolic acidosis -lactic acid elevated -worsening LFTs -patient also has had blood in stools which could be related to ischemic bowel, coagulopathy, thrombocytopenia -03/25/2021:blood cultures growing gustavo 2/2 bottles, discussed with Dr. Canseco -infectious disease. Continue MICAFUNGIN The fungemia could be related to Port-A-Cath versus abdominal abscess. Infectious disease doctor stated if it is from the Port-A-Cath may not be resolved with medical treatment/antifungals. - CT scan abd/pelvis shows a left anti abdomen abscess with fluid collection 9.8 x 2.3 x 5.4 cm. Initiated Zosyn for empiric antibiotic rx -Patient is on Bicarb infusion at 50 mL/hour, s/p albumin -status post linezolid and Zosyn discontinued by infectious disease -on Zosyn and micafungin (3) Abdominal abscess: Status: Resolved Assessment and Plan: 03/27/[address] scan of the abdomen and pelvis 1. 9.8 x 2.3 x 5.4 cm fluid collection in left anterior abdomen, which may be an abscess. 2. Stable peritoneal mass anterior to the rectum on the right, consistent with metastatic disease. 3. Moderate-sized right and small left pleural effusions. 4. Groundglass opacities in left lung upper lobe, consistent with atelectasis versus inflammation or edema. 5. Gallbladder distention, which may be secondary to fasting. [place] cholecystitis cannot be excluded. Discussed with surgery, patient is not a candidate for minor or major procedures, surgeon has updated the family on this. She is not a candidate just given how sick she is at this time 03/07/21: CT showed 10.2 x 6.9 x 12.7 cm fluid collection in the right abdomen of uncertain etiology, stable from 03/02/21 and new from 02/06/21. Patient received platelets transfusion yesterday. Abscess was drained by interventional radiology and drain was left in place for few days. Eventually drain was removed once the output diminished Continue antibiotics as above (4) Acute on chronic renal failure: Qualifiers: Acute renal failure type: unspecified Code(s): N17.9 - Acute kidney failure, unspecified; N18.9 - Chronic kidney disease, unspecified Status: Acute Assessment and Plan: Acute kidney injury over chronic kidney disease -significantly decreased urine output from nephrostomy tubes, creatinine rising, likely related to septic shock, hypotension, third-spacing, possible venous obstruction Patient is being seen by Nephrology and Urology at this time Nephrostomies tubes are in place with negligible urine output Nephrology has recommended against hemodialysis. Surgery also does not want to place a dialy
[2021-04-09 08:31] LABS: Glucose Point of Care 113 mg/dl (65-105)
[2021-04-09 08:42] LABS: Hemoglobin 7.2 g/dL (12.0-15.0); Immature Platelet Fraction Pct 2.1 % (0.9-11.2); Mean Corpuscular HGB Conc 35.5 g/dl (32-36); Mean Corpuscular Hemoglobin 30.5 pg (26-34); Mean Platelet Volume 10.1 fl (7.4-10.4); Red Blood Count 2.36 M/mm3 (4.2-5.4); Red Cell Distribution Width 16.4 % (11.5-14.5); White Blood Count 3.8 K/mm3 (4.5-10.0)
[2021-04-09 08:46] LABS: Hematocrit 20.3 % (37.0-47.0)
[2021-04-09 08:47] LABS: Platelet Count Result 18 k/mm3 (150-375)
[2021-04-09 08:59] LABS: Anion Gap 40 mmol/L (8-16); Calcium 6.7 mg/dL (8.4-10.2); Carbon Dioxide 23 mmol/L (22-30); Chloride 74 mmol/L (98-107); Estimated CRCL calculation 23 ml/min; Estimated Glomerular Filt Rate 19; Glucose 119 mg/dL (65-105); Magnesium 1.8 mg/dL (1.6-2.3); Potassium 4.2 mmol/L (3.4-5.0); Sodium 137 mmol/L (137-145)
[2021-04-09] MEDS: MICAFUNGIN SODIUM 100 MG in SODIUM CHLORIDE 0.9% IV 100 ML IVPB (08:59)
[2021-04-09] MEDS: PANTOPRAZOLE SODIUM IV 40 MG VIAL IV PUSH (09:01)
[2021-04-09] MEDS: TOLNAFTATE 1% POWDER 45 GM BTL 1 APPLIC TOPICAL (09:02)
[2021-04-09] MEDS: SILVERGEL (ELTA) 45 ML 1 APPLIC TOPICAL (09:02)
[2021-04-09 09:13] LABS: Blood Urea Nitrogen 136 mg/dL (7-17)
--- NOTE | 2021-04-09 09:30 | PM.IMPN ---
Progress Note: A&P Assessment and Plan (1) Acute respiratory failure: Code(s): J96.00 - Acute respiratory failure, unspecified whether with hypoxia or hypercapnia Status: Acute Assessment and Plan: Acute respiratory failure likely related to metabolic acidosis, septic shock, acute kidney injury, volume overload and/or congestive heart failure. Intubated 03/26. Continue supportive care per family wishes. (2) Shock: Code(s): R57.9 - Shock, unspecified Status: Acute Assessment and Plan: Shock likely septic shock, hypovolemia from third-spacing, malnourishment, and/or hypoalbuminemia. Continue Levophed and titrate to maintain arterial pressures >70 mmHg for adequate renal and other end organ perfusion. Anuric with uremia but no plans for HD. Lactic acid elevated to 23 related to poor perfusion and acidosis but no longer checking this. [place] to be futile care and comfort measures recommended to family by multiple providers. (3) Pneumonia: Qualifiers: Laterality: bilateral Pneumonia type: due to unspecified organism Code(s): J18.9 - Pneumonia, unspecified organism Status: Acute Assessment and Plan: Chest x-ray shows bilateral infiltrates and cardiomegaly. Infectious disease following the patient. Continue current abx and anti-fungal for now. (4) Abdominal abscess: Status: Resolved Assessment and Plan: CT of the Abd/Pelvis 03/07/21 showing 10.2 x 6.9 x 12.7 cm fluid collection in the right abdomen of uncertain etiology, stable from 03/02/21 and new from 02/06/21. Abscess was drained by interventional radiology and drain was left in place for few days. Eventually drain was removed once the output diminished. Repeat CT scan of the abdomen and pelvis 03/27/21 showing 9.8 x 2.3 x 5.4 cm fluid collection in left anterior abdomen, which may be an abscess. We are continuing antibiotics and antifungal but to what end. No plans for surgical or radiologic intervention at this time (5) Acute on chronic renal failure: Qualifiers: Acute renal failure type: unspecified Code(s): N17.9 - Acute kidney failure, unspecified; N18.9 - Chronic kidney disease, unspecified Status: Acute Assessment and Plan: Acute kidney injury superimposed on chronic kidney disease - significantly decreased urine output from nephrostomy tubes with elevated Cr. Most likely related to septic shock, hypotension, third-spacing, possible nephrostomy tube obstruction. General surgery stated that they could not place a HD catheter safely and Nephrology stating HD would be futile. Discussed with family multiple times. Dtr voices understanding that the patient is dying and that further intervention is futile but want the patient to remain a full code. The family feel thay are abiding by the patient's wishes to have everything done . They are hoping for a miracle. Continue to monitor. (6) Bilateral ureteral obstruction: Code(s): N13.5 - Crossing vessel and stricture of ureter without hydronephrosis Status: Acute Assessment and Plan: Poor urine output. Not a candidate for HD per nephrology. Urology following as well (7) Protein calorie malnutrition: Code(s): E46 - Unspecified protein-calorie malnutrition Status: Chronic Assessment and Plan: Secondary to metastatic cancer and ileus. Patient was not eating much and also refused PEG tube initially and did not want NG. TPN was stopped. Unable to feed via GI tract due to ileus and GI bleed. (8) Anasarca: Code(s): R60.1 - Generalized edema Status: Acute Assessment and Plan: Multifactorial likely secondary to low albumin, venous obstruction, JOSE and/or heart failure. Diuretics on hold at this time due to shock and JOSE. No plans to perform HD. (9) Anemia: Code(s): D64.9 - Anemia, unspecified Status: Acute Assessment and Daniel
[2021-04-09] MEDS: CALCIUM GLUC 1,000 MG/NS 50 ML 1,000 MG/50 ML BAG 100 MG IVPB (11:11)
--- NOTE | 2021-04-09 11:22 | PCDIET ---
Nutrition Follow-Up Complete: Nutrition Diagnosis: Increased protein needs related to pressure ulcer as evidence by comprehensive wound assessment and needs of 94-110g of protein daily for wound healing Nutrition Goal: Patient to meet estimated needs Goal not met. Patient remains NPO; continuing to receive transfusions. Last recorded weight is 114.5 kg which is increased. +I/O. Bowel Motility: +BM today. Labs Reviewed: Platelets (18), Hgb (7.2), Hct (20.3), Glu (119), BUN (136), Cr (3.1), Ca (6.7) Meds Noted: Calcium Gluconate, Vasopressin, Sodium Bicarbonate, Zosyn, Protonix, Levophed, Micafungin, Solu Cortef Additional Notes: RN reports blisters that have opened up; no other skin changes noted. Will continue to monitor with same goal. Nutrition Monitoring and Evaluation: Follow up every 3 days.
[2021-04-09] MEDS: NOREPINEPHRINE 8 MG/D5W 250 ML 8 MG/250 ML BAG 11.25 MG IV CONT (12:56)
[2021-04-09] MEDS: SODIUM CHLORIDE 0.9% IV 250 ML 30 ML IV CONT (16:14)
[2021-04-09 19:17] LABS: Glucose Point of Care 119 mg/dl (65-105)
--- NOTE | 2021-04-09 20:27 | PC.NURSE ---
VALENTIN PEDERSEN called and given update regarding code blue on pt. Informed that 2 relatives may come to the hospital at this time.
--- NOTE | 2021-04-09 21:20 | PDCODEBLUE ---
Code Blue Note Code Blue Note Time Arrived at Code Blue: 2019 Initial Rhythm on Arrival: asystole Airway Management: Pt being bagged on arrival (The patient had no pulse upon arrival and she had been on a ventilator are ready. ) Chest Compressions: In process on arrival to bedside Result of Code Blue: Pt Cardiac Rhythm Post Code: Asystole Code Blue Summary: A cintia paulino was called at approximately 8:20 p.m. the patient had been on a ventilator previously. When I arrived chest compressions were being performed. The patient was found to be asystole. ICU staff had been involved with the CPR. Dr. Adorno was also called to the scene. Dr. Adorno had called the family spoke with the about the situation. ER provider initially came up to the code and left as his shift was ending and dr toscano was on duty. The daughter came to the code approximately 45 minutes into the code and insisted that we continue with CPR and medication. The daughter requested that Dr. Adorno be removed from the room due to prior request that that physcian be removed from the patient's care. I had explained to the daughter that there was a less chance of survival with every 15 minutes interval. I explained to the daughter that after an hour the chances of her being resuscitated are 0%. The daughter wanted us to continue to try. We had given the patient 6 doses of bicarb and 13 epinephrine. Patient has never regained any pulse throughout the whole procedure. We then called Dr. Tariq the ER physician to come to the code. Dr. Tariq check the patient's pupils(which were fixed and nonreactive) and check the patient's pulse with 3 different Dopplers. Who explained to the daughter that it was futile to continue with CPR at this time. Patient has a large amount of petechiae noted on her chest and dried blood around her mouth around the ETtube. Chest compressions and manual ventilation had occurred throughout the code. The code and did approximately2112. Please see code blue sheet.
--- NOTE | 2021-04-09 22:30 | PC.NURSE ---
family reQUESTS AN AUTOPSY. REUQUEST FOR POST MORTUM EXAM, AUTOPSY SERVICES PACKET FOR U, AND RELEASE OF BODY SIGNED BY FAMILY. DNAIELA ALVARADO WAS SECOND WITNESS FOR autopsy services packet for U
--- NOTE | 2021-04-09 22:42 | PC.NURSE ---
2019 Nurse at bedside suctioning pt, monitor worker alarmed asystole. Pt unresponsive, no palpable pulse, no heart tones noted, Code Blue called. See Code Blue sheets. 2047 Daughter here and requested that Dr. Lyons leave the room, She is not suppose to be in my mother's room. She didn't want her in her room. Administration knows this. Hilda Antonio, CUP MACHINE OPERATOR explaining that she is only hospitalist physician here tonight. Daughter insisting Dr. Lyons leave. Also, expressed that she wanted the code continue after Hilda explained that it had been 30 minutes and pt was not responding. model making supervisor, Radha Nam, RN notifed of daughter's request for a different physician. 2112 Dr. Tariq from ED at bedside to exam pt and explained to daughter that pt has . Daughter voices understanding and agreement to stop code. Code called by Dr. Tariq. 2244 Family at bedside, 6 children present. Deny any questions, asking for time alone with pt.
--- NOTE | 2021-04-10 07:17 | PM.DDS ---
Discharge Sum: Prov Provider Primary care physician: Dilshad Denney, Admitting provider: Kavita Bowles MD Consults: 03/06/21 Consult to Physician Routine Comment: called exchange with consult information Consulting Provider: Yue Arrieta will call order clerk/MD group to consult: Nephrology Reason for consultation: JOSE Has provider been notified: Yes Consult to Physician Routine Comment: called exchange with consult information Consulting Provider: David Lucia will call order clerk/MD group to consult: Parres Reason for consultation: JOSE, nephrostomy tubes, pt request Has provider been notified: Yes Wound/ET Consult Routine Reason for Consult:: Coccyx ulcer, Abdominal wound dehiscence Wound/ET Consult Routine Reason for Consult:: Dehiscence of surgical wound, decubitus ulcer 03/07/21 Care Coordination Consult Routine Comment: palliative care consult for GOC discussion Reason for Consult:: Other Consult to Physician Routine Comment: EXCHANGE NOTIFIED Consulting Provider: Leesa Aviles will call order clerk/MD group to consult: cardiology director executive communications Reason for consultation: rising trop, chf Has provider been notified: Yes Consult to Physician Routine Comment: SPOKE WITH RADIOLOGY Consulting Provider: Devendra Barksdale will call order clerk/MD group to consult: Interventional Radiology Reason for consultation: drainage of intrabdominal fluid collection Has provider been notified: Yes 03/08/21 Consult to Physician Routine Comment: Consulting Provider: Romie Miller Reason for consultation: intraabdominal fluid collection Has provider been notified: No Consult to Physician Routine Comment: Consulting Provider: Yehuda Brown will call order clerk/MD group to consult: nephrology Reason for consultation: JOSE Has provider been notified: No Consult to Physician Routine Comment: PAGER WAS CALLED FOR CONSULT Consulting Provider: Rafal Canseco Reason for consultation: bacteremia and intraabdominal fluid collection Has provider been notified: Yes 03/09/21 Consult to Physician Routine Comment: icu patient Consulting Provider: Andrew Garcia will call order clerk/MD group to consult: physical fitness teacher Reason for consultation: change in condition Has provider been notified: Yes Consult to Physician Routine Comment: left message regarding consult Consulting Provider: Madhav Arango will call order clerk/MD group to consult: Conchita Reason for consultation: Thrombocytopenia Has provider been notified: Yes 03/10/21 Consult to Physician Routine Comment: called exchange with consult Consulting Provider: Willy Villa will call order clerk/MD group to consult: Infectious disease Reason for consultation: Bacreremia Has provider been notified: Yes 03/13/21 13:47 Consult to Dietitian Routine Reason for Consult:: TPN 03/21/21 Consult to Physician Routine Comment: OFFICE NOTIFIED OF CONSULT Consulting Provider: Beni Thomas will call order clerk/MD group to consult: GI Reason for consultation: Bloody Stool Has provider been notified: Yes 03/27/21 07:22 Consult to Physician Routine Comment: called exchange with consult information Consulting Provider: Romie Miller will call order clerk/MD group to consult: SURGERY Reason for consultation: Ischemic bowel, placement of dialysis catheter Has provider been notified: Yes 03/27/21 07:27 Consult to Physician Routine Comment: md has been notified for consult Consulting Provider: Madhav Arango will call order clerk/MD group to consult: Dr. Arango Reason for consultation: anemia, thrombocytopenia, coagulopathy Has provider been notified: Yes 03/27/21 07:33 Consult to Physician Routine Comment: called pager Consulting Provider: Rafal Canseco will call order clerk/MD group to consult: DR Canseco Reason for consultation: Fungemia Has provider been notified: Yes 04/08/21 Consult to Physician Routine Comment: Consulting Provider: Miko Braun Reason for consultation: tracheostomy Has provider been notified: No
== END 2021-04-09 21:13 | disposition expired | DRG 371 ==
LOC: ANHED 15:57 → ANHIMU 16:11 → ANHICU 03-09 13:22
PROVIDERS: Internal Medicine; Internal Medicine Nephrology; Physician Assistant; Admitting Provider Hospitalist; Emergency Provider Emergency Medicine; PCP Family Medicine Sports Medicine; Visit Provider Internal Medicine
DX: K65.1 Peritoneal abscess (principal); J18.9 Pneumonia, unspecified organism; J96.01 Acute respiratory failure with hypoxia; A41.9 Sepsis, unspecified organism; R65.21 Severe sepsis with septic shock; I13.0 Hypertensive heart and chronic kidney disease with heart failure and stage 1 through stage 4 chronic kidney disease, or unspecified chronic kidney disease; N17.9 Acute kidney failure, unspecified; E46 Unspecified protein-calorie malnutrition; I50.32 Chronic diastolic (congestive) heart failure; C18.9 Malignant neoplasm of colon, unspecified; G93.40 Encephalopathy, unspecified; C80.0 Disseminated malignant neoplasm, unspecified; C79.89 Secondary malignant neoplasm of other specified sites; K92.1 Melena; B49 Unspecified mycosis; N13.5 Crossing vessel and stricture of ureter without hydronephrosis; I46.9 Cardiac arrest, cause unspecified; E87.8 Other disorders of electrolyte and fluid balance, not elsewhere classified; E87.6 Hypokalemia; N18.32 Chronic kidney disease, stage 3b; Z20.822 Contact with and (suspected) exposure to COVID-19; Z68.28 Body mass index [BMI] 28.0-28.9, adult; I35.1 Nonrheumatic aortic (valve) insufficiency; D63.8 Anemia in other chronic diseases classified elsewhere; D69.6 Thrombocytopenia, unspecified; R60.1 Generalized edema; R53.1 Weakness; R82.90 Unspecified abnormal findings in urine; R77.8 Other specified abnormalities of plasma proteins; L89.152 Pressure ulcer of sacral region, stage 2; E16.2 Hypoglycemia, unspecified; Z79.899 Other long term (current) drug therapy; Z86.718 Personal history of other venous thrombosis and embolism; Z87.891 Personal history of nicotine dependence; Z88.0 Allergy status to penicillin; Z98.42 Cataract extraction status, left eye; Z98.41 Cataract extraction status, right eye; Z96.1 Presence of intraocular lens
CPT/HCPCS: 10160; 31500; 36415; 36430; 36569; 36600; 50431; 70450; 71045; 71250; 74176; 76942; 80048; 80053; 80069; 80076; 81001; 82140; 82375; 82378; 82570; 82805; 82948; 83050; 83605; 83690; 83735; 83880; 84100; 84132; 84156; 84300; 84443; 84466; 84478; 84484; 85014; 85018; 85025; 85027; 85049; 85055; 85380; 85384; 85610; 85730; 85999; 86022; 86023; 86140; 86704; 86705; 86706; 86850; 86900; 86901; 86922; 87040; 87076; 87077; 87086; 87088; 87103; 87106; 87186; 87340; 92950; 93005; 93306; 93970; 93971; 94002; 94003; 94640; 96365; 97110; 97161; 97166; 97535; 99291; P9036; A9270; C1729; C1751; C9113; C9803; J0131; J0171; J0330; J0610; J0692; J0696; J1205; J1610; J1642; J1720; J1815; J1940; J2020; J2060; J2248; J2250; J2270; J2543; J3370; J3475; J3480; J7030; J7040; J7050; J7070; J7120; J7121; P9016; P9017; P9034; P9047; Q5106; Q9966; U0003; U0005